=== PATIENT | female | born 1955 | race Caucasian/White ===

== ENCOUNTER → 2017-05-30 12:10 | Outpatient (CLI) | payer MEDICARE, MEDICAID, SELFPAY ==
--- NOTE | 2017-05-30 12:23 | RAD_ITS ---
STUDY: X-RAY - LEFT HAND, ATTENTION 4 FINGER REASON FOR EXAM: Female, 61 years old. Severe pain without injury. TECHNIQUE: view(s) of the finger were obtained. COMPARISON: None. FINDINGS: Normal metacarpal head. Normal metacarpophalangeal joint. Normal proximal phalanx. Normal middle phalanx. Normal distal phalanx. Normal proximal interphalangeal joint. Normal distal interphalangeal joint. There is minimal soft tissue swelling about the base of the finger although this is thought to be secondary to move all programming as there is an indentation along the base of the finger. RAD/Finger(s) Min 2 Views IMPRESSION: Normal x-ray examination of the finger. Electronically Signed: Michael Mckinnon DO at 18:08 EDT Tel [phone], Service support ,
== END ==
PROVIDERS: Visit Provider Family Medicine
DX: M79.645 Pain in left finger(s) (principal)
CPT/HCPCS: 73140

== ENCOUNTER → 2018-07-25 | Outpatient (CLI) | payer MEDICARE, MEDICAID, SELFPAY ==
[2018-07-25] MEDS: Cosyntropin 0.25 MG Vial IV (08:00)
[2018-07-25 08:38] VITALS: BP 112/64; PULSE 91; RESP 18; TEMP 36.7; O2SAT 96; BMI 21.7
[2018-07-25 09:39] LABS: CORTISOL SERUM < 0.50 ug/dL (3.09-22.40)
== END | disposition home or self-care (01) ==
LOC: MEDOUTP 08:28
PROVIDERS: Family Provider Family Medicine; PCP Family Medicine; Referring Provider Internal Medicine Hematology & Oncology; Visit Provider Internal Medicine Hematology & Oncology
DX: C34.12 Malignant neoplasm of upper lobe, left bronchus or lung (principal)
CPT/HCPCS: 96374; 82533; A4216; J0834

== ENCOUNTER 2020-02-10 14:44 | Inpatient (IN) | payer MEDICARE, MEDICAID, SELFPAY ==
[2018-07-25 08:38] VITALS: BMI 21.7
[2020-02-10] VITALS (32 sets, daily range): BP systolic 57–151; BP diastolic 27–101; PULSE 73–165; RESP 12–31; TEMP 36.6–37; O2SAT 98–100; BMI 29.5; BMI 21.9
--- NOTE | 2020-02-10 14:44 | RAD_ITS ---
STUDY: X-RAY CHEST REASON FOR EXAM: Female, 64 years old. et tube placement, ng tube placement TECHNIQUE: Frontal view of the chest COMPARISON: 15 October 2016 FINDINGS: Endotracheal tube terminates with its tip 4 cm from the alina. Gastric tube courses off the edge of the film into the body of the stomach. There are sternotomy wires. The lungs are clear and expanded. There is no demonstrated pleural abnormality. Normal size heart. There are metallic stents in the RCA and LAD territories Normal mediastinum and mary. Normal visualized pulmonary arteries. Normal visualized aortic arch and descending thoracic aorta. Normal visualized thoracic spine. Normal visualized ribs, clavicles, and shoulders. There is no demonstrated abnormality of the visualized soft tissue structures of the upper abdomen. RAD/Chest 1 View (Portable) IMPRESSION: 1. Expected appearance of endotracheal and gastric tubes. 2. No acute cardiorespiratory disease. 3. Coronary bypass grafting. Electronically Signed: Ronny Hanson, at 16:18 EST Tel , Service support ,
--- NOTE | 2020-02-10 14:44 | EKG12_ITS ---
Test Reason : AM EKG Blood Pressure : / mmHG Vent. Rate : 086 BPM Atrial Rate : 086 BPM P-R Int : 146 ms QRS Dur : 076 ms QT Int : 406 ms P-R-T Axes : 090 067 110 degrees QTc Int : 485 ms Normal sinus rhythm Nonspecific T wave abnormality Prolonged QT Abnormal ECG When compared with ECG of 10-FEB-2020 18:30, MANUAL COMPARISON REQUIRED, DATA IS UNCONFIRMED Confirmed by MICAH BUSTILLOS, SANDRA ([id number]), index editor KENROY HICKS ([id number]) on 02/18/2020 9:40:29 AM Referred By: Jonnie Montalvo Confirmed By:MADIE OBRIEN MD
--- NOTE | 2020-02-10 14:47 | ED.VIS.GEN ---
History of Present Illness Chief Complaint: CPR Informant: Significant Other Narrative: 64-year-old female presenting with unresponsiveness. Apparently per her significant other she had been having chest pain for 3 days prior to this. As they arrived at [facility] patient went unresponsive. Patient was unable to give any history. Her boyfriend then at this point went home to get his phone. Past Medical History - Allergies and Home Meds Allergies/Adverse Reactions: Allergies atorvastatin Adverse Reaction (Severe, Verified 07/25/18 09:16) Myalgias hydrocodone Adverse Reaction (Verified 07/25/18 09:16) Itching hydrocodone bitartrate [From Vicodin] Adverse Reaction (Verified 07/25/18 09:16) Itching oxycodone HCl [From Percocet] Adverse Reaction (Verified 07/25/18 09:16) Itching Prior records reviewed: Yes Past Medical History: - - CAD, three-vessel CABG, peripheral vascular disease, hyperlipidemia, hypertension, [place] Surgical History: angioplasty, appendectomy, - - BLTL Lives: Spouse/ Significant Other Smoking Status: Unknown if ever smoked Drugs: - - Unable to obtain drug and alcohol history. - Family History Maternal Family History: Family History (Last Updated 07/01/17 @ 12:08 by Lisa Ferreira) Mother Heart disease Hypertension Family History: Reports: Heart Disease Paternal Family History: Family History (Last Updated 07/01/17 @ 12:08 by Lisa Ferreira) Mother Heart disease Hypertension Family History: Reports: No pertinent history Review of Systems ROS: Unable to Obtain Physical Exam Vital Signs/Narrative: Vital Signs Temp Pulse Resp BP Pulse Ox 02/10/20 14:44 98.0 F 163 H 20 H 142/101 H 99 General: Obese, Acute Distress Head: Normocephalic, Atraumatic Eyes: Perrl, EOMI ENT: Moist mucous membranes, No rhinorrhea Cardiovascular: Regular rhythm, Tachycardia Respiratory: No distress, CTA bilaterally Abdomen: Soft, Nontender, Nondistended Back: Nontender, Normal Inspection Extremities: Nontender, No edema Skin: Pallor. Negative for: No rash, Cyanosis Psychological: Tearful, Agitated Diagnostic/Tx/Re-eval Laboratory Data 02/10/20 02/10/20 14:45 15:09 WBC 17.2 H RBC 5.24 Hgb 16.1 H Hct 50.4 H MCV 96.2 MCH 30.7 MCHC 31.9 L RDW Std Deviation 46.8 H RDW Coeff of Nehemiah 13.1 Plt Count 260 MPV 9.7 Immature Gran % (Auto) 0.800 Neut % (Auto) 39.6 L Lymph % (Auto) 51.1 H [place] % (Auto) 5.7 Eos % (Auto) 2.2 Baso % (Auto) 0.6 Absolute Neuts (auto) 6.8 Absolute Lymphs (auto) 8.78 H Nucleated RBC % 0 Differential Comment SCANNED APTT 26.3 - Rhythm Strip Rhythm Strip: Sinus Rhythm Rate: 174 - EKG Initial EKG Interpretation: Atrial Fibrillation, S-T Elevation - Leads II, 3, aVF, S-T Depression - Leads V1 through V5, - - STEMI Follow-up EKG Interpretation: Sinus Tachycardia, S-T Elevation - Leads I, 3, aVF, leads V1 through V5, - - STEMI - Medical Decision Making Patient presents unresponsive with history of 3 days of chest pain. ACLS was started. On the monitor patient appeared to be in torsades with alternating V. fib. Patient was given 2 g of mag during CPR. At rhythm check patient had a sinus tachycardia which slowly thierno to a rate of 174 bpm. EKG was performed and interpreted by myself which showed a STEMI which appears to be inferior and possibly atrial fibrillation.. A STEMI was called. I spoke with interventional cardiology who recommended heparin, Brilinta, aspirin. Cardiology recommended to cardiovert the patient and check another EKG while he was in route to the hospital. On arrival back to the room the patient's heart rate is now 107 and appears to be in normal sinus rhythm. Repeat EKG does show similar ST elevation and depression consistent with inferior ME as interpreted by myself. Medications were given as instructed. Patient did not require cardioversion. Thus far patient's lab work show a leukocytosis. Renal function and troponin are pending. Patient is sedated on a propofol drip. Patient transported to [facility] in stabilized condition. Impression: 1. Cardiopulmonary arrest 2. STEMI ED Disposition - Plan for ED Patient:
[2020-02-10 14:52] LABS: Absolute Lymphocyte Count 8.78 X10^3/uL (0.83-4.51); Absolute Neutrophil Count 6.8 X10^3/uL (2.0-7.7); Basophil# 0.11 X10^3/uL; Basophil% 0.6 % (0-1); Eosinophil# 0.37 X10^3/uL; Eosinophils% 2.2 % (0-5); Hematocrit 50.4 % (37-47); Hemoglobin 16.1 g/dL (12.0-15.0); Lymphocyte # 8.78 X10^3/ul (4.0); Lymphocyte % 51.1 % (19-41); Mean Corp Hgb Conc 31.9 g/dL (32-36); Mean Corpuscular Hgb 30.7 pg (27.0-32.0); Mean Corpuscular Volume 96.2 fL (81-99); Mean Platelet Vol. 9.7 fl (6.2-12.0); Monocyte# 0.98 X10^3/uL; Monocyte% 5.7 % (0-10); NRBC Flagged by Analyzer 0 % (0-5); Neutrophil # 6.79 X10^3/uL (2.7-7.7); Neutrophil % 39.6 % (47-70); POSITIVE DIFFERENTIAL YES; Platelet Count 260 K/mm3 (150-450); RBC Distribution Width CV 13.1 % (11.6-14.6); RBC Distribution Width SD 46.8 fl (35.1-43.9); Red Blood Count 5.24 M/mm3 (4.2-5.4); White Blood Count 17.2 K/mm3 (4.4-11.0)
[2020-02-10 14:54] LABS: Differential Indicated SCAN CRITERIA MET
[2020-02-10] MEDS: TICAGRELOR 90 MG TABLET 180 MG PO (15:05)
[2020-02-10] MEDS: Aspirin 81 MG TAB.CHEW 324 MG PO (15:05)
[2020-02-10] MEDS: Heparin Injection (Vial) 5,000 UNIT/ML VIAL 6000 UNIT IV (15:05)
--- NOTE | 2020-02-10 15:10 | HP.PCM_ITS ---
Problem List (1) STEMI (ST elevation myocardial infarction) Status: Acute Qualifiers: Involved coronary artery: unspecified coronary artery Qualified Code(s): I21.3 - ST elevation (STEMI) myocardial infarction of unspecified site (2) Cardiac arrest Status: Acute (3) Torsades de pointes Status: Acute (4) Ventricular tachycardia Status: Acute (5) Aortocoronary bypass status Status: Chronic Comment: CABG x 3- KENNY to LAD, SVG to OM, SVG to distal right 09/24/13 (6) Peripheral vascular insufficiency Status: Chronic (7) History of myocardial infarction Status: Chronic (8) Atherosclerotic heart disease of [place] coronary artery without angina pectoris Status: Chronic Qualifiers: [place] vs. transplanted heart: unspecified whether [place] or transplanted heart Qualified Code(s): I25.10 - Atherosclerotic heart disease of [place] coronary artery without angina pectoris Comment: CABG x 3- KENNY to LAD, SVG to OM, SVG to distal right 09/24/13; Stent assisted PTCA of prox LAD and cutting balloon 11/06/02; PTCA/Stent of the CX 09/18/13 (9) Hyperlipidemia Status: Chronic Qualifiers: Hyperlipidemia type: unspecified Qualified Code(s): E78.5 - Hyperlipidemia, unspecified (10) Hypertension Status: Chronic Qualifiers: Hypertension type: essential hypertension Qualified Code(s): I10 - Essential (primary) hypertension (11) Chronic obstructive pulmonary disease (COPD) Status: Chronic Qualifiers: COPD type: unspecified COPD Qualified Code(s): J44.9 - Chronic obstructive pulmonary disease, unspecified (12) Tobacco use Status: Chronic History of Present Illness Date of Admission: 02/10/20 Chief Complaint: Chest pain, unresponsive, cardiac arrest, STEMI The patient is a 64 y/o F w/ PMHx: Chronic COPD, HTN, HLD, CAD s/p CABG x 3 KENNY-LAD, SVG-OM, SVG distal right 2013, PCI, Hx GI bleed, PVD, Tobacco use, Anxiety who presents to the [facility] ED on 02/10/20 with history of ongoing chest discomfort intermittently over the last several months per discussion with patient's son with more severe chest discomfort over the last 3 days described as a midsternal chest pressure, severe enough that patient had used all of her own nitroglycerin and had been taking some from her son, 10 out of 10 with dyspnea which she attributed to reflux and thought secondary to her severe hiatal hernia but did not improve prompting eventual ED presentation however upon arrival patient became unresponsive in the vehicle and was pulled out per hospital staff. Upon arrival as noted patient was unresponsive with immediate evaluation notable for torsades with magnesium administered with transition to VT with shock administered with eventual transition to questionable atrial fibrillation with RVR versus sinus tachycardia however concern for significant elevations in leads II, III, aVF as well as depressions in V1 through V5 however patient eventually did slow and repeat EKG was obtained with rate 100 noted be sinus rhythm with confirmed concern for STEMI. Irrigation Flume Layer was contacted and events were relayed as well as EKGs. Irrigation Flume Layer requested aspirin, heparin alie cristal and drip as well as Brilinta load. In the emergency room following resuscitation patient was intubated and sedated noted to be extremely agitated following resuscitation. Work-up in the ED included T 98, heart rate upon evaluation 107, BP 142/101, respiratory rate 20, 99% on Ambu bag with eventual successful intubation, current labs resolved include CBC with WC 17.2, hemoglobin 16.1, platelet 260 with increased lymphocytes, pending PTT, pending BMP, pending magnesium, pending troponin, chest x-ray just obtained secondary to recent intubated status. Currently transitioning now to the cardiac catheterization lab. Past Medical History Past Medical History (Chronic Problems): Chronic Problems (Last Updated 07/01/17 @ 12:07 by Lisa Ferreira) Chronic obstructive pulmonary disease (COPD) (Chronic) Tobacco use (Chronic) Presence of stent in coronary artery (Chronic) Stent assisted PTCA of prox LAD and cutting balloon 11/06/02; PTCA/Stent of the CX 09/18/13 Aortocoronary bypass status (Chronic ~09/24/13) CABG x 3- KENNY to LAD, SVG to OM, SVG to distal right 09/24/13 Peripheral vascular insufficiency (Chronic) History of myocardial infarction (Chronic) Atherosclerotic heart disease of [place] coronary artery without angina pectoris (Chronic) CABG x 3- KENNY to LAD, SVG to OM, SVG to distal right 09/24/13; Stent assisted PTCA of prox LAD and cutting balloon 11/06/02; PTCA/Stent of the CX 09/18/13 S/P PTCA (percutaneous transluminal coronary angioplasty) (Chronic) Stent assisted PTCA of prox LAD and cutting balloon 11/06/02; PTCA/Stent of the CX 09/18/13 Hyperlipidemia (Chronic) Hypertension (Chronic) Squamous cell carcinoma of left lung (Chronic) Medical History: Medical History (Last Updated 07/01/17 @ 12:07 by Lisa Ferreira) Peripheral vascular insufficiency (Chronic) I73.9 History of myocardial infarction (Acute) I25.2 Atherosclerotic heart disease of [place] coronary artery without angina pectoris (Chronic) I25.10 CABG x 3- KENNY to LAD, SVG to OM, SVG to distal right 09/24/13; Stent assisted PTCA of prox LAD and cutting balloon 11/06/02; PTCA/Stent of the CX 09/18/13 Hyperlipidemia (Chronic) E78.5 Hypertension (Chronic) I10 Squamous cell carcinoma of left lung (Chronic) C34.92 History of GI bleed Z87.19 COPD (chronic obstructive pulmonary disease) J44.9 Tobacco abuse Z72.0 Hypotension (Inactive) I95.9 Left shoulder pain (Inactive) M25.512 Shock (Inactive) R57.9 Allergies atorvastatin Adverse Reaction (Severe, Verified 07/25/18 09:16) Myalgias hydrocodone Adverse Reaction (Verified 07/25/18 09:16) Itching hydrocodone bitartrate [From Vicodin] Adverse Reaction (Verified 07/25/18 09:16) Itching oxycodone HCl [From Percocet] Adverse Reaction (Verified 07/25/18 09:16) Itching Home Medications: Ambulatory Orders Medication Instructions Recorded Aspirin [Aspirin, Baby] 81 mg PO DAILY 02/17/13 Lorazepam [Ativan] 0.5 mg PO QHS 07/25/18 Surgical History: Surgical History (Last Updated 07/01/17 @ 12:07 by Lisa Ferreira) Presence of stent in coronary artery (Chronic) Z95.5 Stent assisted PTCA of prox LAD and cutting balloon 11/06/02; PTCA/Stent of the CX 09/18/13 Aortocoronary bypass status (Chronic) Onset Date: ~09/24/13 Z95.1 CABG x 3- KENNY to LAD, SVG to OM, SVG to distal right 09/24/13 S/P PTCA (percutaneous transluminal coronary angioplasty) (Chronic) Z98.61 Stent assisted PTCA of prox LAD and cutting balloon 11/06/02; PTCA/Stent of the CX 09/18/13 Surgical History: angioplasty - CABG x 3 and PCI., appendectomy, - - BLTL Psychiatric History: Anxiety BEHAVIORAL HEALTH CLINICIAN History: No pertinent BEHAVIORAL HEALTH CLINICIAN history Lives: Spouse/ Significant Other Smoking Status: Current some day smoker Tobacco Use: Cigarettes Alcohol: None Drugs: None - *Family History Maternal Family History: Family History (Last Updated 07/01/17 @ 12:08 by Lisa Ferreira) Mother Heart disease Hypertension History Items: Heart Disease Paternal Family History: Family History (Last Updated 07/01/17 @ 12:08 by Lisa Ferreira) Mother Heart disease Hypertension History Items: - - Patient with no market paternal family history including heart disease, diabetes, cancer. Offspring Family History: Family History (Last Updated 07/01/17 @ 12:08 by Lisa Ferreira) Mother Heart disease Hypertension History Items: Heart Disease - Patient with son with significant cardiac disease concurrently, CAD. Review of Systems Constitutional: Reports: Anorexia, Malaise, Weakness, Fatigue. Denies: Chills, Fever, Weight Change HEENT: Denies: Head Aches, Sinus Congestion, Sinus Drainage Cardiovascular: Reports: Chest Pain, Chest Pressure. Denies: Chest Tightness, Light Headedness, Orthopnea, Palpitations, Syncope Respiratory: Reports: Cough, Shortness of Breath, Shortness of breath upon exertion. Denies: Shortness of breath at rest, Sputum production Gastrointestinal: Reports: Dyspepsia. Denies: Abdominal Pain, Nausea, Vomiting Genitourinary: Denies: Dysuria Musculoskeletal: Reports: Joint Pain. Denies: Joint Tenderness Skin: Denies: Rash, Wounds Neurological: Denies: Numbness, Tingling, Focal weakness Psychiatric: Reports: Anxiety. Denies: Depression, Homicidal Ideations, Suicidal Ideations Hematologic/ Lymphatic: Denies: Easy Bruising, Easy Bleeding Unable to obtain accurate/complete ROS d/t: Unable to obtain direct ROS given sedated status, obtained per Son. VTE Information - Inpt Only VTE Present on Admission: No VTE Mechan Device Prophylaxis: SCD's VTE Pharm Prophylaxis ordered?: Yes Patient Problems: Active and Suspected Problems (Last Updated 07/01/17 @ 12:07 by Lisa Ferreira) STEMI (ST elevation myocardial infarction) (Acute) Cardiac arrest (Acute) Torsades de pointes (Acute) Ventricular tachycardia (Acute) Subjective: Laying in the ED bed, sedated, intubated currently, currently no acute distress, heart rate improved with rate 100, EKG being performed. Objective: Physical Examination: General: Patient currently sedated, not alert, not awake, unable to answer orientation questions, intubated and recently sedated as noted, laying in the ED bed, currently no acute distress. Skin: normal color, turgor, no icterus, cyanosis. HEENT: AT/NC, EOM unable to be assessed given intubated and sedated status, PERRLA, dry MM, no carotid bruits or JVD noted. Lungs: Diminished breath sounds bilaterally, greater bases, symmetric rise, intubated, no rales, ronchi or wheezing. Heart: Tachycardic with regular rhythm; no gallop, rub audible. Abdomen: soft, no elicited grimace with palpation of the abdomen, ND, normal BS, no HSM. Extremities: no cyanosis, clubbing, or edema. Neurological: Patient currently sedated, not alert, not awake, unable to answer orientation questions, intubated and recently sedated as noted, laying in the ED bed, currently no acute distress; cognitive function not baseline intact; pupils equally reactive to light and accomodation; cranial nerves unable to be assessed well given intubated and sedated status, not moving to withdrawal with stimuli, strength accordingly severely globally decreased. Psychiatric: affect appears flat, per discussion with ED physician once ROSC was achieved patient was severely agitated prior to intubation, no acute evidence of depressive or anxiety feelings. - Physical Exam Vitals/I&O's: Vital Signs Temp Pulse Resp BP Pulse Ox 98.0 F 163 H 20 H 142/101 H 99 02/10/20 14:44 02/10/20 14:44 02/10/20 14:44 02/10/20 14:44 02/10/20 14:44 Oxygen Delivery Method Ambu-Bag Weight: 182 lb 15.739 oz Body Mass Index (BMI) 29.5 Finger Stick Blood Glucose 61 Laboratory Results 02/10/20 14:45: WBC 17.2 H, RBC 5.24, Hgb 16.1 H, Hct 50.4 H, MCV 96.2, MCH 30.7, MCHC 31.9 L, RDW Std Deviation 46.8 H, RDW Coeff of Nehemiah 13.1, Plt Count 260, MPV 9.7, Immature Gran % (Auto) 0.800, Neut % (Auto) 39.6 L, Lymph % (Auto) 51.1 H, [place] % (Auto) 5.7, Eos % (Auto) 2.2, Baso % (Auto) 0.6, Absolute Neuts (auto) 6.8, Absolute Lymphs (auto) 8.78 H, Nucleated RBC % 0 02/10/20 14:45: Sodium Pending, Potassium Pending, Chloride Pending, Carbon Dioxide Pending, Anion Gap Pending, BUN Pending, Creatinine Pending, Est GFR (MDRD) Af Amer Pending, Est GFR (MDRD) Non-Af Pending, BUN/Creatinine Ratio Pending, Glucose Pending, Calcium Pending, Magnesium Pending, Troponin I Pending Current Medications Heparin Sodium (Porcine) (Heparin Injection (Vial) 5,000 Unit/Ml Vial) 0 unit IV UD PRN; Protocol PRN Reason: dose adjustment Heparin Sodium/Dextrose () 25,000 units in 250 mls @ 12 mls/hr IV .[id number] ANTONIO; Protocol Sodium Chloride () 500 mls @ 999 mls/hr IV .Q31M [facility] Stop: 02/10/20 15:30 Assessment/Plan All Active Problems (Last Updated 07/01/17 @ 12:07 by Lisa Ferreira) STEMI (ST elevation myocardial infarction) (Acute) Cardiac arrest (Acute) Torsades de pointes (Acute) Ventricular tachycardia (Acute) The patient is a 64 y/o F w/ PMHx: Chronic COPD, HTN, HLD, CAD s/p CABG x 3 KENNY-LAD, SVG-OM, SVG distal right 2014, PCI, Hx GI bleed, PVD, Tobacco use, Anxiety who presents to the [facility] ED on 02/10/20 with history of ongoing chest discomfort intermittently over the last several months per discussion with patient's son with more severe chest discomfort over the last 3 days described as a midsternal chest pressure, severe enough that patient had used all of her own nitroglycerin and had been taking some from her son, 10 out of 10 with dyspnea which she attributed to reflux and thought secondary to her severe hiatal hernia but did not improve prompting eventual ED presentation. 1. Chest Pain with eventual cardiac arrest with evident Inferior STEMI, complicated by torsades and ventricular tachycardia: As noted EKG with significant elevations lead II, III, aVF with depressions in V1 through V5, confirmed upon repeat EKG once patient rate improved. Patient received heparin bolus, drip, Brilinta load and aspirin therapy in the ED following ROSC, currently transitioning to cardiac catheterization lab but following intervention if appropriate will transition to the ICU, maintain intubated and sedated status, will continue aspirin, Brilinta versus Plavix per crushing machine operator discretion, statin allergies listed as severe myalgias therefore will only add atorvastatin 10 mg dose but may require QOD dosing or d/c pending tolerance, expect beta-nakul therapy as well as consideration ANGIE inhibitor/ARB but will defer to cardiology decision, request echocardiogram, continue to cycle cardiac enzymes, magnesium already obtained and noted to be normal, trend EKG, continue cardiology as well as supervisor paint department consultation. FLP in AM. Covid PCR testing pending, obtained in the ED prior to transition to cardiac catheterization lab. 2. Chronic COPD: Intubated and sedated as noted given acute presentation, ABG requested per AG and pending, will continue ATC duonebs, PRN albuterol, HOB, IS parameters. 3. CAD: s/p PCI and CABG x 3, pending cardiac catheterization as noted #1 given STEMI presentation with cardiac arrest, continue asa, brillinta load as noted with planned transition 90 mg BID in AM, adding low dose atorvastatin given myalgia history and may not tolerate with AM FLP, defer choice BB/ACEI/ARB to cardiology. 4. Hypertension: Patient per current regimen not on any beta-nakul or ANGIE inhibitor/ARB, as noted above will defer to cardiology, as needed IV hydrala zine. 5. Hyperlipidemia: Patient with severe myalgias with statin therapy noted on allergy list, will attempt atorvastatin 10 mg only with FLP in a.m., may not be able to further tolerate however will retry given acute presentation with STEMI. 6. History of GI bleed: Given acute presentation as noted patient initiated on Brilinta with load and planned transition to 90 mg twice daily likely as well as continued aspirin therapy, currently heparin drip in place with bolus, will place on PPI given history. 7. Anxiety: Holding patient Ativan given sedation as noted currently. 8. Tobacco Abuse: Encouraged cessation, inpatient consultation per RT, NR if desired. 9. DVT prophylaxis: SCDs, heparin drip as noted currently given planned catheterization needs, may consider Lovenox in AM. 10. CODE status: Patient WILFREDO is her son who was contacted and discussed presentation. Discussed current critical status and patient following discussions, requested Full Code status, amenable to current intubated status and planned cardiac catheterization. Advanced Care Planning Face to Face Time: 16 minutes. Inpatient E&M: 35304 Init Hosp L3 Procedures: 56541 Advncd Care Plan 30 Min
[2020-02-10 15:14] LABS: Differential Comment SCANNED
[2020-02-10 15:21] LABS: Blood Gas Specimen Type VEN; VBG BASE EXCESS -4 mmol/L (-1.0-3.5); VBG Bicarbonate 22 mmol/L (22-26); VBG PO2 146 mmHg (25-40); VBG SO2 99 % (50-70); VBG TCO2 24 mmol/L (23-33); VBG pCO2 45.8 mmHg (41-51)
[2020-02-10 15:25] LABS: Partial Thromboplast Time 26.3 Seconds (24.1-36.2)
--- NOTE | 2020-02-10 15:36 | EKG12_ITS ---
Test Reason : CPR Blood Pressure : / mmHG Vent. Rate : 174 BPM Atrial Rate : 087 BPM P-R Int : 000 ms QRS Dur : 086 ms QT Int : 280 ms P-R-T Axes : 000 082 076 degrees QTc Int : 476 ms Atrial fibrillation with rapid ventricular response ST elevation consider inferior injury or acute infarct ACUTE NM / STEMI Consider right ventricular involvement in acute inferior infarct Abnormal ECG Confirmed by MICAH BUSTILLOS, SANDRA ([id number]), newspaper or periodical editor KENROY HICKS ([id number]) on 02/14/2020 10:16:40 AM Referred By: Jonnie Montalvo Confirmed By:MADIE OBRIEN MD
[2020-02-10 15:41] LABS: Anion Gap 12 (5-15); BUN 14 mg/dL (7-18); BUN/Creat Ratio 13.3 RATIO (10-20); Calcium,Total 8.7 mg/dL (8.5-10.1); Chloride 108 mmol/L (98-107); Creatinine, Serum 1.05 mg/dL (0.55-1.02); EST Glomerular Filtration Rate 56 mL/min (>60); Est Glom Filt Rate - Afr Amer 68 mL/min (>60); Glucose 176 mg/dL (74-106); Magnesium 3.6 mg/dL (1.6-2.6); Potassium 3.9 mmol/L (3.5-5.1); Sodium Level 140 mmol/L (136-145)
--- NOTE | 2020-02-10 17:50 | PCM.OP.PRO ---
Problem List (1) NSTEMI (non-ST elevated myocardial infarction) Status: Acute (2) Cardiogenic shock Status: Acute Procedure Report Date of Procedure: 02/10/20 Prescription Clerk Lenses: Jonnie Montalvo DO History: This is a 64 years old female with history of coronary disease with CABG in 2013 NH: KENNY to the LAD, SVG to the OM, SVG to the RCA presented inpatient due to V. tach cardiac arrest. The patient has an EKG done which was concerning for cardiac ischemia. We have explained to the patient risks and benefits of cardiac catheterization plus any other necessary procedures with a view towards revascularization, if necessary. Risks, including but not limited to anesthesia, infection, organ(s) damage, bleeding, vessel injury, arrhythmia, stroke, NH and , including the need for urgent surgery were discussed in detail. The patient accepts these risks and verbalized understanding and is willing to proceed with the procedure. Viable alternatives if applicable have thoroughly been discussed and the patient agrees with the planned procedure(s). We also discussed with the patient regarding different treatment modalities including but not limited to drug-eluting stent/balloons. The patient was agreeable to any therapy that is considered necessary by my clinical judgment. Pre-op Diagnosis: + V. tach cardiac arrest + Abnormal ECG Post-op Diagnosis: + Cardiogenic shock status post intra-aortic balloon pump insertion + Acute closure of the SVG to the OM successful revascularization -Aspiration thrombectomy -Synergy 3.0x18mm stent to the SVG to the OM graft +NSTEMI type 1 + Atretic KENNY to the LAD + Patent SVG to the RCA + Acute occlusion of the SVG to the OM status post successful revascularization Procedures performed: Left Heart Catheterization + Cardiogenic shock status post intra-aortic balloon pump insertion + Acute closure of the SVG to the OM successful revascularization -Aspiration thrombectomy -Synergy 3.0x18mm stent to the SVG to the OM graft insertion of spider filter device Right & Left Selective Coronary Angiography Left Ventriculogram Moderate Sedation Bilateral femoral access with Ultrasound guidance Implants: -see above Estimated Blood Loss (EBL): minimal Specimen Removed: None Supplies: please see list Procedure details: After informed consent was obtained, the patient was brought to the Cardiac Catheterization Lab in a fasting state. All appropriate labs had been reviewed. Femoral and radial regions were prepped and draped in the usual sterile fashion. A time-out procedure was performed with appropriate identification of the patient, procedure, physician, position, and documentation. There were no safety issues raised by the staff. The bilateral femoral area was anesthetized with lidocaine and a 8 and 6-[place] vascular sheath was placed via a modified Seldinger technique using Ultrasound guidance. -We encountered difficulty access of the left femoral artery due to heavy calcification that was recorded on ultrasound. We were able to cross the femoral stenosis lesion with a Glidewire. We then advanced our 6 [place] sheath as usual. -Left system coronary angiography performed using a JL4 catheter. -Right and SVG system coronary angiography performed using a JR4 catheter. -KENNY to the LAD coronary angiography performed using a VICTOR M catheter. -Left heart catheterization and left ventriculography were performed using a pigtail catheter. The interventional procedure was performed as outlined below. After angiographic data was obtained, it was determined the patient will need further intervention to the SVG to the OM. The patient blood pressure was tenuous. And giving the recent V. tach. The patient is progressing into cardiogenic shock. For this reason, we elected to place the intra-aortic balloon pump before our intervention. The right femoral access site was an upgrade to an 8 [place]. We then advanced the intra-aortic balloon pump into the abdominal aorta. It was verified to be in the correct position. The balloon pump was then run one-to-one. The patient hemodynamic status stabilized. The SVG graft was heavily thrombotic with LUANNE I flow we advanced a spider filter into the SVG graft to the OM. It was placed distal to the stenosis. Next we also give nicardipine 200 mg. We then used a aspiration thrombectomy device. 2 rounds aspiration were done. There were thrombi aspirated. Next we advanced a 3.0 mm Synergy stent into the SVG graft. The stent was placed at the stenotic segment and deployed. We then retrieved the spider filter device. Angiographic data was done afterward which showed LUANNE-3 flow with 0% residual stenosis. The patient tolerated procedure well and there was no complication. The ACT was checked throughout the procedure and was verified in therapeutic range. Following the procedure, all wires & catheters were removed. The arteriotomy site was StatLock there was no apparent complication Contrast: See intra-procedure logs. Fluoroscopy: See intra-procedure logs. Anesthesia/medications: See intra-procedure log for details. Under my supervision, Versed and Fentanyl were administered intravenously for moderate sedation. Pulse oximetry, heart rate, and blood pressure were continuously monitored by a lab head registered nurse and myself. The history and physical exam were reviewed prior to the procedure and the airway was assessed. Coronary Findings: +Left Main: Patent vessel without any significant focal disease giving rise to LCx and LAD. +Left Anterior Descending: Occluded proximally; in-stent occlusion; Gives rise to diagonal and septal branches D1: In-stent occlusion +Left Circumflex: Occluded proximally, in-stent +Right Coronary Artery: Occluded proximally, in-stent; dominant vessel giving rise to postero-lateral and posterior descending arteries which are filled by SVG graft KENNY to the LAD -atretic SVG to the OM -acutely occluded, LUANNE I flow SVG to the RCA -widely patent, mid 20% stenosis POST INTERVENTION: SVG to the OM -LUANNE-3 flow with 0% residual stenosis. It supplies the OM which also gives collaterals to the LAD Left Ventriculography: Left ventriculography was performed in 30 degree FERREIRA position. The ejection fraction was estimated at 35% with inferior wall hypokinesis. There was no significant mitral regurgitation. Hemodynamics: -Opening aortic pressure was 110/55. -Left ventricular pressure was 110, left ventricular end-diastolic pressure was 10 mmHg. -Aortic pullback pressure was 110/55. -There was no significant gradient on pullback from the left ventricle into the ascending aorta. Conclusions: + Cardiogenic shock status post intra-aortic balloon pump insertion + Acute closure of the SVG to the OM successful revascularization -Aspiration thrombectomy -Synergy 3.0x18mm stent to the SVG to the OM graft +NSTEMI type 1 + Atretic KENNY to the LAD + Patent SVG to the RCA + Acute occlusion of the SVG to the OM status post successful revascularization Plan: + Aspirin and Brilinta for at least 1 year Continue intraductal balloon pump one-to-one. We will see how the patient does tomorrow we may wean the patient off the balloon pump. We will continue to optimize her medical therapy as tolerated. +Ice Access sites twice daily for 15 minutes each time. +Aggressive Risk Factor Modification + Continue ICU care DO MARILOU Clark, FASYudith, FACC, FASNC Date: 02/10/2020 at 1809
--- NOTE | 2020-02-10 18:10 | CON.PCM_ITS ---
Problem List (1) NSTEMI (non-ST elevated myocardial infarction) Status: Acute (2) Cardiogenic shock Status: Acute (3) Torsades de pointes Status: Acute (4) Ventricular tachycardia Status: Acute (5) Aortocoronary bypass status Status: Chronic Comment: CABG x 3- KENNY to LAD, SVG to OM, SVG to distal right 09/24/13 (6) Hyperlipidemia Status: Chronic Qualifiers: Hyperlipidemia type: unspecified Qualified Code(s): E78.5 - Hyperlipidemia, unspecified (7) Hypertension Status: Chronic Qualifiers: Hypertension type: essential hypertension Qualified Code(s): I10 - Essential (primary) hypertension (8) Tobacco use Status: Chronic Reason for Consult Date of Consultation: 02/10/20 Reason for Consultation: Cardiac arrest History of Present Illness: The patient is a 64 year old F [] Past Medical History Allergies/Adverse Reactions: Allergies atorvastatin Adverse Reaction (Severe, Verified 07/25/18 09:16) Myalgias hydrocodone Adverse Reaction (Verified 07/25/18 09:16) Itching hydrocodone bitartrate [From Vicodin] Adverse Reaction (Verified 07/25/18 09:16) Itching oxycodone HCl [From Percocet] Adverse Reaction (Verified 07/25/18 09:16) Itching Home Medications: Ambulatory Orders Medication Instructions Recorded Aspirin [Aspirin, Baby] 81 mg PO DAILY 02/17/13 Lorazepam [Ativan] 0.5 mg PO QHS 07/25/18 Past Medical History (Chronic Problems): Chronic Problems (Last Updated 07/01/17 @ 12:07 by Lisa Ferreira) Chronic obstructive pulmonary disease (COPD) (Chronic) Tobacco use (Chronic) Presence of stent in coronary artery (Chronic) Stent assisted PTCA of prox LAD and cutting balloon 11/06/02; PTCA/Stent of the CX 09/18/13 Aortocoronary bypass status (Chronic ~09/24/13) CABG x 3- KENNY to LAD, SVG to OM, SVG to distal right 09/24/13 Peripheral vascular insufficiency (Chronic) History of myocardial infarction (Chronic) Atherosclerotic heart disease of [place] coronary artery without angina pectoris (Chronic) CABG x 3- KENNY to LAD, SVG to OM, SVG to distal right 09/24/13; Stent assisted PTCA of prox LAD and cutting balloon 11/06/02; PTCA/Stent of the CX 09/18/13 S/P PTCA (percutaneous transluminal coronary angioplasty) (Chronic) Stent assisted PTCA of prox LAD and cutting balloon 11/06/02; PTCA/Stent of the CX 09/18/13 Hyperlipidemia (Chronic) Hypertension (Chronic) Squamous cell carcinoma of left lung (Chronic) Surgical History: angioplasty - CABG x 3 and PCI., appendectomy, - - BLTL Psychiatric History: Anxiety 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 Maternal Family History: Family History (Last Updated 07/01/17 @ 12:08 by Lisa Ferreira) Mother Heart disease Hypertension History Items: Heart Disease Paternal Family History: Family History (Last Updated 07/01/17 @ 12:08 by Lisa Ferreira) Mother Heart disease Hypertension History Items: - - Patient with no market paternal family history including heart disease, diabetes, cancer. Lives: Spouse/ Significant Other Smoking Status: Unknown if ever smoked Tobacco Use: Cigarettes Alcohol: None Drugs: None Objective: Vital Signs Temp Pulse Resp BP Pulse Ox 98.0 F 80 16 125/50 H 98 02/10/20 16:45 02/10/20 16:45 02/10/20 16:45 02/10/20 16:45 02/10/20 16:45 Oxygen Delivery Method Room Air Weight: 182 lb 15.739 oz Body Mass Index (BMI) 29.5 Finger Stick Blood Glucose 61 14 point review system was done. Pertinent positives are mentioned in HPI. Physical Exam GENERAL: Intubated and sedated, critically ill-appearing VITAL SIGNS: please see collected data HEENT: Exam is benign. Normocephalic and atraumatic. Oral mucosa is pink and moist. NECK: Jugular venous pulsations are normal. Carotid upstrokes are palpable bilaterally. There is no audible bruit. LUNGS: Vent Sound CARDIAC: Tachycardic. S1 and S2 with JOS at apex, no rub, or gallop appreciated. The point of maximal impulse is normal. ABDOMEN: Obese, soft with active bowel sounds. No organomegaly. No audible bruit. Nontender To Palpation EXTREMITIES: Femoral pulses were plus 1-2 out of 4. No Lower extremities edema. Pulse +1/4 OMM: Patient was examined in supine position; there was no acute tissue changes other stated in Lymphs: No lymphadenopathy Neuro: Intubated and sedated 02/10/20 14:45: WBC 17.2 H, RBC 5.24, Hgb 16.1 H, Hct 50.4 H, MCV 96.2, MCH 30.7, MCHC 31.9 L, Plt Count 260, MPV 9.7, Immature Gran % (Auto) 0.800, Neut % (Auto) 39.6 L, Lymph % (Auto) 51.1 H, [place] % (Auto) 5.7, Eos % (Auto) 2.2, Baso % (Auto) 0.6, Absolute Neuts (auto) 6.8, Nucleated RBC % 0 02/10/20 14:45: Sodium 140, Potassium 3.9, Chloride 108 H, Carbon Dioxide 20.0 L , Anion Gap 12, BUN 14, Creatinine 1.05 H, Est GFR (MDRD) Af Amer 68, Est GFR (MDRD) Non-Af 56 L, BUN/Creatinine Ratio 13.3, Glucose 176 H, Calcium 8.7, Magnesium 3.6 H, Troponin I 0.739 H* 02/10/20 15:09: APTT 26.3 02/10/20 15:15: VBG pH 7.30 L, VBG pO2 146 H, VBG HCO3 22, VBG O2 Sat (Calc) 99 H, VBG Base Excess -4 L Rhythm: EKG: ECHO: Stress Test: Cardiac Cath: PCI: CT Surgery: Holter monitor: EPS: PPM: CXR: Chest CT Scan: Assessment/Plan Impression and recommendation + Cardiogenic shock status post intra-aortic balloon pump insertion -The patient hemodynamic status is improving. The patient LVEDP was only 10. We suspect that we can wean the patient off the balloon pump tomorrow. -We will continue to implement cardiac medication as indicated. + Acute closure of the SVG to the OM successful revascularization -Aspiration thrombectomy -Synergy 3.0x18mm stent to the SVG to the OM graft - Aspirin and Brilinta for at least 1 year - Continue intra-aortic balloon pump one-to-one. We will see how the patient does tomorrow we may wean the patient off the balloon pump. + Ischemic cardiomyopathy with depressed LVEF of 40% -The patient will need cardiac rehab. -We will continue to optimize other medical therapy as tolerated. + Severe coronary disease with history of CABG in 2013 -Atretic KENNY to the LAD -Patent SVG to the RCA -Acute occlusion of the SVG to the OM status post successful revascularization -The patient has severe residual [place] coronary disease. She will likely need intervention to the LAD in the near future. + Ventricular tachycardia cardiac arrest -See management above -Depending on how the patient does, she may need further evaluation by EP team. + Tobacco abuse We will continue to educate the patient on the importance of quitting her tobacco use. + Hyperlipidemia The patient has allergy to statin. We will see if we can rechallenge her.
[2020-02-10 18:20] LABS: ACT Activated Clotting Time 241 sec (74-137)
[2020-02-10 18:20] LABS: ACT Activated Clotting Time 224 sec (74-137)
[2020-02-10 18:20] LABS: ACT Activated Clotting Time 285 sec (74-137)
--- NOTE | 2020-02-10 18:30 | EKG12_ITS ---
Test Reason : STEMI Blood Pressure : / mmHG Vent. Rate : 081 BPM Atrial Rate : 081 BPM P-R Int : 142 ms QRS Dur : 078 ms QT Int : 430 ms P-R-T Axes : 065 069 175 degrees QTc Int : 499 ms Normal sinus rhythm T wave abnormality, consider inferolateral ischemia Prolonged QT Abnormal ECG When compared with ECG of 10-FEB-2020 14:56, MANUAL COMPARISON REQUIRED, DATA IS UNCONFIRMED Confirmed by MICAH BUSTILLOS, SANDRA ([id number]), story editor LOYD MCMAHON ([id number]) on 02/19/2020 4:13:20 PM Referred By: Jonnie Montalvo Confirmed By:MADIE OBRIEN MD
--- NOTE | 2020-02-10 18:35 | ECHOCS_ITS ---
Reason For Study: CHEST PAIN Procedure This was a 2D Doppler, Color Flow transthoracic echocardiogram. The study was technically difficult. Due to chest pain from CPR performed in ED 02/10/20, PT found unresponsive in car. Exam performed supine due to patient's chest pain. Contrast injection was performed. Exam performed portable in ICU/CCU. Left Ventricle Normal LV size. The estimated ejection fraction is 40 %. Stage 1 diastolic dysfunction. Severe hypokinesis of the inferior wall and lateral wall. Right Ventricle Normal RV size. Normal systolic function. Atria Normal left atrium. Normal right atrium. No doppler evidence for ASD. Mitral Valve There is no mitral valve stenosis. No mitral valve insufficiency. Tricuspid Valve There is no tricuspid stenosis. Trivial tricuspid valve insufficiency. Unable to estimate RV systolic pressure due to insufficient tricuspid regurgitant envelope. Aortic Valve Mild diffuse aortic valve thickening. Trisinus/trileaflet aortic valve. There is no aortic stenosis. No aortic valve insufficiency. Pulmonic Valve There is no pulmonic valvular stenosis. No pulmonic valve insufficiency. Great Vessels Normal aortic root. Pericardium/Pleural No pericardial effusion. Medication Diluted definity 2.0ml given slow IV push to enhance endocardial definition. MMode/2D Measurements & Calculations LVIDd: 4.4 cm IVSd: 0.88 cm Ao root diam: 3.3 cm LVIDs: 3.4 cm LVPWd: 0.94 cm FS: 22.8 % LAV(MOD-bp): 34.3 ml LA A4 area: 13.4 cm2 LA dimension(2D): 2.9 cm LAV(MOD-bp) Indexed: 20.1 ml/m2 LAV(MOD-sp2): 34.7 ml LAV(MOD-sp4): 32.9 ml Time Measurements MV dec time: 0.16 sec Doppler Measurements & Calculations MV E max joe: 96.9 cm/sec Lat Peak E' Joe: 9.0 cm/sec Med Peak E' Joe: 8.8 cm/sec MV A max joe: 69.7 cm/sec E/E' lat: 10.8 E/E' med: 11.0 MV E/A: 1.4 Ao V2 max: 141.4 cm/sec LV V1 max: 90.3 cm/sec Ao max P.0 mmHg LV V1 max P.3 mmHg Interpretation Summary The estimated ejection fraction is 40 %. Stage 1 diastolic dysfunction. Severe hypokinesis of the inferior wall and lateral wall. The study was technically difficult. Contrast injection was performed. Ordering Physician: Winsome Morataya Referring Physician: Harvey Chow Performed By: Lexie Riggins, ANNA, RVT
[2020-02-10 19:01] LABS: Prothrombin Time (Protime)PT. 12.5 SECONDS (11.7-14.9)
[2020-02-10] MEDS: Propofol 10MG/Ml 1,000 MG/100 ML Bottle 24.9 MG CONT INF (19:16)
[2020-02-10] MEDS: 0.9% Normal Saline 1,000 ML 75 ML IV (19:45)
--- NOTE | 2020-02-10 19:50 | RAD_ITS ---
STUDY: X-RAY CHEST REASON FOR EXAM: Female, 64 years old. IABP TECHNIQUE: AP COMPARISON: Earlier today FINDINGS: Endotracheal tube and enteric/gastric tube are stable. Intra-aortic balloon pump identified with echogenic tip projecting over the aortic arch. The lungs are clear and expanded. There is no demonstrated pleural abnormality. Normal size heart. Coronary artery stents noted. Normal mediastinum and mary. Normal visualized pulmonary arteries. Normal visualized aortic arch and descending thoracic aorta. Normal visualized thoracic spine. Normal visualized ribs, clavicles, and shoulders. There is no demonstrated abnormality of the visualized soft tissue structures of the upper abdomen. RAD/Chest 1 View (Portable) IMPRESSION: IABP with tip projecting over the aortic arch. Otherwise stable. Electronically Signed: Brandon Hernandez MD (Brooks) at 20:13 EST , Service support ,
--- NOTE | 2020-02-10 19:53 | RAD_ITS ---
STUDY: X-RAY - ABDOMEN/PELVIS REASON FOR EXAM: Female, 64 years old. IABP TECHNIQUE: AP COMPARISON: Chest x-ray from the same time FINDINGS: Enteric/gastric tube terminates in the stomach. Right groin IABP is seen. FLOWERS catheter is present. Excreted contrast in the urinary tract/kidneys/bladder. There is an unremarkable bowel gas pattern. There is no demonstrated free abdominal air. The visualized liver, spleen and kidneys are grossly normal in size and morphology. There are vascular calcifications. There are fallopian tube clips. Normal visualized osseous structures. RAD/Abdomen Single View (Portable) IMPRESSION: Right groin IABP. Enteric/gastric tube. Electronically Signed: Brandon Hernandez MD (Brooks) at 20:46 EST , Service support ,
--- NOTE | 2020-02-10 20:08 | NURSING ---
1939- Balloon pump alarming with helium flow issues. Trouble shooting was completed, checked all connections. Helium tank full. Called Dr Montalvo who stated he would be in to assess pt. Aware pump is not pumping at this time. 1944- Dr Montalvo to unit. Adv nursing to turn pump off and then turn it back on. Remains at bedside. Pump now working. MD had us change it to 1:4. Reports no Heparin GTT needed.
[2020-02-10 20:11] LABS: Base Excess -1 mmol/L (-2 to +2); Bicarbonate 23.8 mmol/L (22-26); Blood Gas Specimen Type ART; FI02 60; Mode AC; O2 Delivery Device Adult Vent; PEEP 5; PO2 130 mmHG (75-100); RR 14; SITE Art Line; SO2 99 % (95-99); Total Carbon Dioxide 25 mmol/L; Vt 450; pCO2 38.4 mmHg (35-45)
[2020-02-10] MEDS: 0.9% Normal Saline 1,000 ML 999 ML IV (20:20)
[2020-02-10 20:25] LABS: Hematocrit 38.2 % (37-47); Hemoglobin 12.3 g/dL (12.0-15.0)
[2020-02-10 20:26] LABS: Bedside Glucose 102 mg/dL (70-110)
[2020-02-10 20:30] LABS: ACT Activated Clotting Time 158 sec (74-137)
--- NOTE | 2020-02-10 20:30 | NURSING ---
Spoke with son Eduardo on phone. Update given.
[2020-02-10] MEDS: Dextrose 50%-Water 25 GM/50 ML DISP.SYRIN IV (20:47)
--- NOTE | 2020-02-10 20:50 | NURSING ---
Dr. Montalvo at bedside. Balloon pump currently in 1:4. Dr. Montalvo decided to DC balloon pump. 2054- Dr. Montalvo DC'd balloon pump. Manual pressure held by Dr. Montalvo. 2104- Dr. Montalvo asked RN to continue holding pressure to balloon pump site. This RN held manual pressure from 2104 to 2124. Right groin site soft. Pressure dressing applied. Pedal pulses are +1.
[2020-02-10 21:10] LABS: Hematocrit 39.4 % (37-47); Hemoglobin 12.3 g/dL (12.0-15.0)
--- NOTE | 2020-02-10 21:19 | PCM.OP.PRO ---
Problem List (1) NSTEMI (non-ST elevated myocardial infarction) Status: Acute (2) Cardiogenic shock Status: Acute (3) Torsades de pointes Status: Acute (4) Ventricular tachycardia Status: Acute (5) Aortocoronary bypass status Status: Chronic Comment: CABG x 3- KENNY to LAD, SVG to OM, SVG to distal right 09/24/13 (6) Hyperlipidemia Status: Chronic Qualifiers: Hyperlipidemia type: unspecified Qualified Code(s): E78.5 - Hyperlipidemia, unspecified (7) Hypertension Status: Chronic Qualifiers: Hypertension type: essential hypertension Qualified Code(s): I10 - Essential (primary) hypertension (8) Tobacco use Status: Chronic Procedure Report Date of Procedure: 02/10/20 Director Of Human Resources: Jonnie Finn Insertion of central line at the bedside Indication: Hemodynamic support The patient was prepped and draped in sterile fashion. Next we used ultrasound to assess for the left femoral vein. The femoral vein was identified. Next we used lidocaine to numb up the location of the femoral vein. Next we used an access needle to puncture the femoral vein. We then used the Seldinger technique to insert the triple-lumen femoral sheath into the vein. All ports were aspirated and verified to be in working condition. The patient tolerated procedure well and there was no complication. Blood loss 5 cc
[2020-02-10] MEDS: TITRATION PARAMETER CHANGE 1 EACH IV (21:21)
[2020-02-10] MEDS: Vancomycin IV 1,000 MG/200 ML BAG 200 MG IV (21:21)
--- NOTE | 2020-02-10 21:21 | PCM.OP.PRO ---
Problem List (1) NSTEMI (non-ST elevated myocardial infarction) Status: Acute (2) Cardiogenic shock Status: Acute (3) Torsades de pointes Status: Acute (4) Ventricular tachycardia Status: Acute (5) Aortocoronary bypass status Status: Chronic Comment: CABG x 3- KENNY to LAD, SVG to OM, SVG to distal right 09/24/13 (6) Hyperlipidemia Status: Chronic Qualifiers: Hyperlipidemia type: unspecified Qualified Code(s): E78.5 - Hyperlipidemia, unspecified (7) Hypertension Status: Chronic Qualifiers: Hypertension type: essential hypertension Qualified Code(s): I10 - Essential (primary) hypertension (8) Tobacco use Status: Chronic Procedure Report Date of Procedure: 02/10/20 Removal of intra-aortic balloon pump Indication: The balloon pump is not needed at this time I was called to the patient bedside regarding the balloon pump not working properly. After further assessment of the balloon pump as well as the patient hemodynamic needs. It was determined that the patient does not need balloon pump support at this time. Rather, it may complicate the course of treatment. Hence at this time we elected to remove the balloon pump. I also discussed this with our fleet manager at [facility], Dr. Karen Lynne. The patient was prepped and draped in sterile fashion. We then put the balloon pump on 1-4. Next we put the balloon pump on standby. Balloon pump was then pulled along with the femoral sheath. We were able to achieve hemostasis with manual pressure. The patient tolerated procedure well and there was no complication. Blood loss 2 cc Complication none
[2020-02-10] MEDS: Chlorhexidine 15 ML PO (22:14)
[2020-02-10] MEDS: Ipratropium/Albuterol Sulfate 3 ML AMPUL.NEB INHALATION (22:31)
[2020-02-10 22:49] LABS: Hemoglobin A1c 5.8 % (3.8-5.6)
[2020-02-10 22:53] LABS: CPK Total, Creatine Kinase 2841 U/L (26-192); Triglycerides 187 mg/dL
[2020-02-10] MEDS: Atorvastatin Calcium 10 MG Tablet PO (23:21)
[2020-02-11] VITALS (60 sets, daily range): BP systolic 79–135; BP diastolic 36–82; PULSE 76–108; RESP 14–28; TEMP 36.6–39.4; O2SAT 91–99
[2020-02-11] MEDS: 0.9% Normal Saline 1,000 ML 100 ML IV ×3 (00:13→20:19)
--- NOTE | 2020-02-11 00:36 | NURSING ---
Spoke with Ronal on phone. Update given.
[2020-02-11] MEDS: 0.9% Saline Lock 10 ML Syringe IV ×4 (01:27→10:04)
--- NOTE | 2020-02-11 01:52 | NURSING ---
Pt. woke up. Following simple commands. Explained what happened to pt. Oral care provided. Told pt. that her son and were updated; pt. nodded in understanding. Will monitor.
[2020-02-11 03:08] LABS: Bacteria 0 SEEN /hpf (None Seen); Mucous, Urine 0 SEEN /hpf (<or=2+); Squamous Epithelial Cells - UA 0 SEEN /hpf (5-10); White Blood Cells 0 SEEN /hpf (0-5)
[2020-02-11 03:09] LABS: Color, Urine Yellow (Yellow); Glucose, Dipstick Normal (Normal); Ketone-Dipstick Negative (Negative); Leukocyte Esterase-Dipstick Negative /ul (Negative); Nitrite-Dipstick Negative (Negative); Occult Blood-Urine 150 /ul (Negative); Protein-Dipstick 15 mg/dl (Negative); Urine Bilirubin Dipstick Negative (Negative); Urine Clarity Clear (Clear); Urine Urobilinogen Normal (Normal)
[2020-02-11 03:15] LABS: Red Blood Cells-Urine 10-25 SEEN /hpf (0-5)
[2020-02-11 03:35] LABS: Absolute Lymphocyte Count 4.84 X10^3/uL (0.83-4.51); Absolute Neutrophil Count 10.8 X10^3/uL (2.0-7.7); Basophil% 0.6 % (0-1); Eosinophil# 0.53 X10^3/uL; Hematocrit 37.2 % (37-47); Hemoglobin 11.9 g/dL (12.0-15.0); Lymphocyte # 4.84 X10^3/ul (4.0); Lymphocyte % 27.1 % (19-41); Mean Corpuscular Hgb 31.2 pg (27.0-32.0); Mean Corpuscular Volume 97.6 fL (81-99); Mean Platelet Vol. 9.8 fl (6.2-12.0); Monocyte# 1.51 X10^3/uL; Monocyte% 8.4 % (0-10); NRBC Flagged by Analyzer 0 % (0-5); Neutrophil # 10.77 X10^3/uL (2.7-7.7); Neutrophil % 60.2 % (47-70); POSITIVE DIFFERENTIAL YES; Platelet Count 262 K/mm3 (150-450); RBC Distribution Width CV 13.6 % (11.6-14.6); RBC Distribution Width SD 48.5 fl (35.1-43.9); Red Blood Count 3.81 M/mm3 (4.2-5.4); White Blood Count 17.9 K/mm3 (4.4-11.0)
[2020-02-11 03:36] LABS: Differential Indicated SCAN CRITERIA MET
[2020-02-11 03:54] LABS: ALB/GLOB Ratio 0.8 RATIO (0.9-2.4); AST(SGOT) 336 U/L (15-37); Alanine Aminotransfer ALT/SGPT 113 U/L (13-56); Albumin, Serum 2.4 g/dL (3.2-5.0); Alkaline Phosphatase 58 U/L (45-117); Anion Gap 6 (5-15); BUN 13 mg/dL (7-18); BUN/Creat Ratio 13.4 RATIO (10-20); Calcium,Total 6.8 mg/dL (8.5-10.1); Chloride 110 mmol/L (98-107); Cholesterol 151 mg/dL (200); Creatinine, Serum 0.97 mg/dL (0.55-1.02); EST Glomerular Filtration Rate 61 mL/min (>60); Est Glom Filt Rate - Afr Amer 74 mL/min (>60); Estimated Creatinine Clearance 54.13 ml/min; Glucose 124 mg/dL (74-106); High Density Lipoprotein 34 mg/dL; Protein, Total 5.4 g/dL (6.4-8.2); Sodium Level 142 mmol/L (136-145); Triglycerides 185 mg/dL; Very Low Density Lipoprotein 37 mg/dL (5-40)
[2020-02-11] MEDS: Acetaminophen 650 MG/20 ML UDC GT (04:13)
[2020-02-11] MEDS: TITRATION PARAMETER CHANGE 1 EACH IV (04:32)
--- NOTE | 2020-02-11 05:49 | PCM.CON.CC ---
Reason for Consult Date of Consultation: 02/11/20 Reason for Consultation: Acute respiratory failure History of Present Illness: The patient is a 64-year-old female, with a history as outlined below, who presented to the emergency department on February 09 in an unresponsive state after having sustained cardiac arrest. The patient had apparently been reporting 3 days of chest pain prior to presenting to the hospital. On arrival to the emergency department, ACLS was initiated. The patient does have a history of COPD and coronary artery disease status post CABG. On presentation to the emergency department, the patient was apparently in torsade/VT, which was treated with advanced cardiac life support and cardioversion. EKG revealed findings concerning for ischemia. Interventional cardiology was contacted and the cardiac [employer] was activated. Laboratory evaluation revealed an elevated white blood cell count to 17,000. Coagulation profile was within normal limits. Chemistry profile was notable for a creatinine of 1.05 with a bicarbonate of 20. Magnesium was elevated at 3.6. Troponin was initially elevated to 0.739. Coronavirus PCR was negative. Urine analysis was unremarkable. The patient was taken to the cardiac catheterization lab where she was noted to have a closure of her SVG to OM, for which she underwent successful aspiration thrombectomy and stent placement. Initially, post intervention, an intra-aortic balloon pump was placed. The patient also had a left femoral triple-lumen catheter inserted to facilitate vasoactive drug administration. Overnight, the patient's intra-aortic balloon pump was removed by cardiology after it was noted not to be working appropriately. The patient is currently sedated on Precedex and fentanyl. In addition, she has been maintained on Levophed at 15 mcg/min to maintain hemodynamic stability. Per nursing report, the patient has had fevers overnight. Cultures were obtained but no antibiotics were initiated last night. Past Medical History Past Medical History (Chronic Problems): Chronic Problems (Last Updated 07/01/17 @ 12:07 by Lisa Ferreira) Chronic obstructive pulmonary disease (COPD) (Chronic) Tobacco use (Chronic) Presence of stent in coronary artery (Chronic) Stent assisted PTCA of prox LAD and cutting balloon 11/06/02; PTCA/Stent of the CX 09/18/13 Aortocoronary bypass status (Chronic ~09/24/13) CABG x 3- KENNY to LAD, SVG to OM, SVG to distal right 09/24/13 Peripheral vascular insufficiency (Chronic) History of myocardial infarction (Chronic) Atherosclerotic heart disease of [place] coronary artery without angina pectoris (Chronic) CABG x 3- KENNY to LAD, SVG to OM, SVG to distal right 09/24/13; Stent assisted PTCA of prox LAD and cutting balloon 11/06/02; PTCA/Stent of the CX 09/18/13 S/P PTCA (percutaneous transluminal coronary angioplasty) (Chronic) Stent assisted PTCA of prox LAD and cutting balloon 11/06/02; PTCA/Stent of the CX 09/18/13 Hyperlipidemia (Chronic) Hypertension (Chronic) Squamous cell carcinoma of left lung (Chronic) Medical History: Medical History (Last Updated 07/01/17 @ 12:07 by Lisa Ferreira) Peripheral vascular insufficiency (Chronic) I73.9 History of myocardial infarction (Chronic) I25.2 Atherosclerotic heart disease of [place] coronary artery without angina pectoris (Chronic) I25.10 CABG x 3- KENNY to LAD, SVG to OM, SVG to distal right 09/24/13; Stent assisted PTCA of prox LAD and cutting balloon 11/06/02; PTCA/Stent of the CX 09/18/13 Hyperlipidemia (Chronic) E78.5 Hypertension (Chronic) I10 Squamous cell carcinoma of left lung (Chronic) C34.92 History of GI bleed Z87.19 COPD (chronic obstructive pulmonary disease) J44.9 Tobacco abuse Z72.0 Hypotension (Inactive) I95.9 Left shoulder pain (Inactive) M25.512 Shock (Inactive) R57.9 Allergies atorvastatin Adverse Reaction (Severe, Verified 07/25/18 09:16) Myalgias hydrocodone Adverse Reaction (Verified 07/25/18 09:16) Itching hydrocodone bitartrate [From Vicodin] Adverse Reaction (Verified 07/25/18 09:16) Itching oxycodone HCl [From Percocet] Adverse Reaction (Verified 07/25/18 09:16) Itching Home Medications: Ambulatory Orders Medication Instructions Recorded Aspirin [Aspirin, Baby] 81 mg PO DAILY 02/17/13 Lorazepam [Ativan] 0.5 mg PO QHS 07/25/18 Hydrocortisone [Cortef] 10 mg PO QHS 02/11/20 Hydrocortisone [Cortef] 20 mg PO DAILY 02/11/20 Surgical History: Surgical History (Last Updated 07/01/17 @ 12:07 by Lisa Ferreira) Presence of stent in coronary artery (Chronic) Z95.5 Stent assisted PTCA of prox LAD and cutting balloon 11/06/02; PTCA/Stent of the CX 09/18/13 Aortocoronary bypass status (Chronic) Onset Date: ~09/24/13 Z95.1 CABG x 3- KENNY to LAD, SVG to OM, SVG to distal right 09/24/13 S/P PTCA (percutaneous transluminal coronary angioplasty) (Chronic) Z98.61 Stent assisted PTCA of prox LAD and cutting balloon 11/06/02; PTCA/Stent of the CX 09/18/13 Surgical History: angioplasty - CABG x 3 and PCI., appendectomy, - - BLTL Psychiatric History: Anxiety [employer]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 Maternal Family History: Family History (Last Updated 07/01/17 @ 12:08 by Lisa Ferreira) Mother Heart disease Hypertension History Items: Heart Disease Paternal Family History: Family History (Last Updated 07/01/17 @ 12:08 by Lisa Ferreira) Mother Heart disease Hypertension History Items: - - Patient with no market paternal family history including heart disease, diabetes, cancer. Review of Systems Unable to obtain accurate/complete ROS d/t: Due to current intubation and mechanical ventilation status. Patient Problems: Active and Suspected Problems (Last Updated 07/01/17 @ 12:07 by Lisa Ferreira) STEMI (ST elevation myocardial infarction) (Acute) Cardiac arrest (Acute) Torsades de pointes (Acute) Ventricular tachycardia (Acute) NSTEMI (non-ST elevated myocardial infarction) (Acute) Cardiogenic shock (Acute) Objective: The patient's most recent lab work, culture data and imaging studies have all been personally reviewed. Coronavirus PCR was negative on February 09. Blood, urine and sputum cultures are pending. - Physical Exam Vitals/I&O's: Vital Signs Temp Pulse Resp BP Pulse Ox 103 F H 87 15 95/57 L 98 02/11/20 05:00 02/11/20 05:00 02/11/20 05:00 02/11/20 05:00 02/11/20 05:00 Oxygen Delivery Method Mechanical Ventilator Weight: 137 lb 2.04 oz Body Mass Index (BMI) 21.9 Finger Stick Blood Glucose 61 Intake and Output for Last 24 Hours 02/09/20 02/10/20 02/11/20 23:59 23:59 23:59 Intake Total 2363.13 / 2393.49 364.66 / 364.66 Output Total 325 / 325 150 / 150 Balance 2038.13 / 2068.49 214.66 / 214.66 General: - - Currently intubated, sedated and mechanically ventilated. No ventilator dyssynchrony on assist control mode of mechanical ventilation. HEENT: Atraumatic, PERRLA, Normocephalic Oral: No Gingival or Mucosal Lesions/ Ulcerations, - - Endotracheal and OG tubes in place Neck: Supple, No Nodes, Trachea Midline Lungs: No rhonchi, No wheeze, No rales, Diminished Cardiovascular: Regular rate, Regular Rhythm Abdomen: Bowel Sounds Present, Soft, Non Tender Extremities: No clubbing, No cyanosis, No edema Skin: No breakdown Musculoskeletal: No Tenderness to Palpation of Joints or Extremities Lymphatic: No Cervical, Supraclavicular, or Inguinal Adenopathy Neurological: - - No focal neurological deficits. Despite sedation, the patient is alert and able to follow simple commands. Labs (Last 48 Hours) 02/10/20 02/10/20 02/10/20 14:45 14:45 14:50 WBC 17.2 H RBC 5.24 Hgb 16.1 H Hct 50.4 H MCV 96.2 MCH 30.7 MCHC 31.9 L RDW Std Deviation 46.8 H RDW Coeff of Nehemiah 13.1 Plt Count 260 MPV 9.7 Immature Gran % (Auto) 0.800 Neut % (Auto) 39.6 L Lymph % (Auto) 51.1 H Kay % (Auto) 5.7 Eos % (Auto) 2.2 Baso % (Auto) 0.6 Absolute Neuts (auto) 6.8 Absolute Lymphs (auto) 8.78 H Nucleated RBC % 0 Differential Comment SCANNED Diff Path Review PT INR APTT Activated Clotting Time Specimen Type Sample Site pH Bicarbonate Actual Total CO2 Base Excess O2 Saturation O2 % ABG pCO2 ABG pO2 VBG pH VBG pO2 VBG HCO3 VBG Total CO2 VBG O2 Sat (Calc) VBG Base Excess POC Mix VBG pCO2 Pt Tmp Respiration Rate O2 Delivery Device Vent Mode Tidal Volume POC PEEP Sodium 140 Potassium 3.9 Chloride 108 H Carbon Dioxide 20.0 L Anion Gap 12 BUN 14 Creatinine 1.05 H Estim Creat Clear Calc 50.00 Est GFR (MDRD) Af Amer 68 Est GFR (MDRD) Non-Af 56 L BUN/Creatinine Ratio 13.3 Glucose 176 H Hemoglobin A1c Calcium 8.7 Magnesium 3.6 H Total Bilirubin AST ALT Alkaline Phosphatase Total Creatine Kinase Troponin I 0.739 H* Total Protein Albumin Globulin Albumin/Globulin Ratio Triglycerides Cholesterol LDL Cholesterol VLDL Cholesterol HDL Cholesterol Urine Color Urine Clarity Urine pH Ur Specific [place] Urine Protein Urine Glucose (UA) Urine Ketones Urine Occult Blood Urine Nitrite Urine Bilirubin Urine Urobilinogen Ur Leukocyte Esterase Urine RBC Urine WBC Ur Squamous Epith Cells Urine Bacteria Urine Mucus COVID-19 (BERENICE) Not Detected POC Glucose Blood Type Antibody Screen 02/10/20 02/10/20 02/10/20 15:09 15:09 15:09 WBC RBC Hgb Hct MCV MCH MCHC RDW Std Deviation RDW Coeff of Nehemiah Plt Count MPV Immature Gran % (Auto) Neut % (Auto) Lymph % (Auto) Kay % (Auto) Eos % (Auto) Baso % (Auto) Absolute Neuts (auto) Absolute Lymphs (auto) Nucleated RBC % Differential Comment Diff Path Review PT 12.5 INR 1.0 APTT 26.3 Activated Clotting Time Specimen Type Sample Site pH Bicarbonate Actual Total CO2 Base Excess O2 Saturation O2 % ABG pCO2 ABG pO2 VBG pH VBG pO2 VBG HCO3 VBG Total CO2 VBG O2 Sat (Calc) VBG Base Excess POC Mix VBG pCO2 Pt Tmp Respiration Rate O2 Delivery Device Vent Mode Tidal Volume POC PEEP Sodium Potassium Chloride Carbon Dioxide Anion Gap BUN Creatinine Estim Creat Clear Calc Est GFR (MDRD) Af Amer Est GFR (MDRD) Non-Af BUN/Creatinine Ratio Glucose Hemoglobin A1c 5.8 H Calcium Magnesium Total Bilirubin AST ALT Alkaline Phosphatase Total Creatine Kinase Troponin I Total Protein Albumin Globulin Albumin/Globulin Ratio Triglycerides Cholesterol LDL Cholesterol VLDL Cholesterol HDL Cholesterol Urine Color Urine Clarity Urine pH Ur Specific [place] Urine Protein Urine Glucose (UA) Urine Ketones Urine Occult Blood Urine Nitrite Urine Bilirubin Urine Urobilinogen Ur Leukocyte Esterase Urine RBC Urine WBC Ur Squamous Epith Cells Urine Bacteria Urine Mucus COVID-19 (BERENICE) POC Glucose Blood Type Antibody Screen 02/10/20 02/10/20 02/10/20 15:15 16:17 16:37 WBC RBC Hgb Hct MCV MCH MCHC RDW Std Deviation RDW Coeff of Nehemiah Plt Count MPV Immature Gran % (Auto) Neut % (Auto) Lymph % (Auto) Kay % (Auto) Eos % (Auto) Baso % (Auto) Absolute Neuts (auto) Absolute Lymphs (auto) Nucleated RBC % Differential Comment Diff Path Review PT INR APTT Activated Clotting Time 241 H 224 H Specimen Type ZAHIDA Sample Site pH Bicarbonate Actual Total CO2 Base Excess O2 Saturation O2 % ABG pCO2 ABG pO2 VBG pH 7.30 L VBG pO2 146 H VBG HCO3 22 VBG Total CO2 24 VBG O2 Sat (Calc) 99 H VBG Base Excess -4 L POC Mix VBG pCO2 Pt Tmp 45.8 Respiration Rate O2 Delivery Device Vent Mode Tidal Volume POC PEEP Sodium Potassium Chloride Carbon Dioxide Anion Gap BUN Creatinine Estim Creat Clear Calc Est GFR (MDRD) Af Amer Est GFR (MDRD) Non-Af BUN/Creatinine Ratio Glucose Hemoglobin A1c Calcium Magnesium Total Bilirubin AST ALT Alkaline Phosphatase Total Creatine Kinase Troponin I Total Protein Albumin Globulin Albumin/Globulin Ratio Triglycerides Cholesterol LDL Cholesterol VLDL Cholesterol HDL Cholesterol Urine Color Urine Clarity Urine pH Ur Specific [place] Urine Protein Urine Glucose (UA) Urine Ketones Urine Occult Blood Urine Nitrite Urine Bilirubin Urine Urobilinogen Ur Leukocyte Esterase Urine RBC Urine WBC Ur Squamous Epith Cells Urine Bacteria Urine Mucus COVID-19 ([place]ENICE) POC Glucose Blood Type Antibody Screen 02/10/20 02/10/20 02/10/20 16:57 20:05 20:05 WBC RBC Hgb Hct MCV MCH MCHC RDW Std Deviation RDW Coeff of Nehemiah Plt Count MPV Immature Gran % (Auto) Neut % (Auto) Lymph % (Auto) Kay % (Auto) Eos % (Auto) Baso % (Auto) Absolute Neuts (auto) Absolute Lymphs (auto) Nucleated RBC % Differential Comment Diff Path Review PT INR APTT Activated Clotting Time 285 H Specimen Type Sample Site pH Bicarbonate Actual Total CO2 Base Excess O2 Saturation O2 % ABG pCO2 ABG pO2 VBG pH VBG pO2 VBG HCO3 VBG Total CO2 VBG O2 Sat (Calc) VBG Base Excess POC Mix VBG pCO2 Pt Tmp Respiration Rate O2 Delivery Device Vent Mode Tidal Volume POC PEEP Sodium Potassium Chloride Carbon Dioxide Anion Gap BUN Creatinine Estim Creat Clear Calc Est GFR (MDRD) Af Amer Est GFR (MDRD) Non-Af BUN/Creatinine Ratio Glucose Hemoglobin A1c Calcium Magnesium Total Bilirubin AST ALT Alkaline Phosphatase Total Creatine Kinase 2841 H Troponin I 114.000 H* Total Protein Albumin Globulin Albumin/Globulin Ratio Triglycerides 187 Cholesterol LDL Cholesterol VLDL Cholesterol HDL Cholesterol Urine Color Urine Clarity Urine pH Ur Specific [place] Urine Protein Urine Glucose (UA) Urine Ketones Urine Occult Blood Urine Nitrite Urine Bilirubin Urine Urobilinogen Ur Leukocyte Esterase Urine RBC Urine WBC Ur Squamous Epith Cells Urine Bacteria Urine Mucus COVID-19 (BERENICE) POC Glucose Blood Type Antibody Screen 02/10/20 02/10/20 02/10/20 20:05 20:05 20:16 WBC RBC Hgb 12.3 Hct 38.2 MCV MCH MCHC RDW Std Deviation RDW Coeff of Nehemiah Plt Count MPV Immature Gran % (Auto) Neut % (Auto) Lymph % (Auto) Kay % (Auto) Eos % (Auto) Baso % (Auto) Absolute Neuts (auto) Absolute Lymphs (auto) Nucleated RBC % Differential Comment Diff Path Review PT INR APTT Activated Clotting Time 158 H Specimen Type ART Sample Site Art Line pH 7.40 Bicarbonate Actual 23.8 Total CO2 25 Base Excess -1 O2 Saturation 99 O2 % 60 ABG pCO2 38.4 ABG pO2 130 H VBG pH VBG pO2 VBG HCO3 VBG Total CO2 VBG O2 Sat (Calc) VBG Base Excess POC Mix VBG pCO2 Pt Tmp Respiration Rate 14 O2 Delivery Device Adult Vent Vent Mode AC Tidal Volume 450 POC PEEP 5 Sodium Potassium Chloride Carbon Dioxide Anion Gap BUN Creatinine Estim Creat Clear Calc Est GFR (MDRD) Af Amer Est GFR (MDRD) Non-Af BUN/Creatinine Ratio Glucose Hemoglobin A1c Calcium Magnesium Total Bilirubin AST ALT Alkaline Phosphatase Total Creatine Kinase Troponin I Total Protein Albumin Globulin Albumin/Globulin Ratio Triglycerides Cholesterol LDL Cholesterol VLDL Cholesterol HDL Cholesterol Urine Color Urine Clarity Urine pH Ur Specific [place] Urine Protein Urine Glucose (UA) Urine Ketones Urine Occult Blood Urine Nitrite Urine Bilirubin Urine Urobilinogen Ur Leukocyte Esterase Urine RBC Urine WBC Ur Squamous Epith Cells Urine Bacteria Urine Mucus COVID-19 ([facility]ENICE) POC Glucose Blood Type Antibody Screen 02/10/20 02/10/20 02/10/20 20:22 21:00 21:05 WBC RBC Hgb 12.3 Hct 39.4 MCV MCH MCHC RDW Std Deviation RDW Coeff of Nehemiah Plt Count MPV Immature Gran % (Auto) Neut % (Auto) Lymph % (Auto) Kay % (Auto) Eos % (Auto) Baso % (Auto) Absolute Neuts (auto) Absolute Lymphs (auto) Nucleated RBC % Differential Comment Diff Path Review PT INR APTT Activated Clotting Time Specimen Type Sample Site pH Bicarbonate Actual Total CO2 Base Excess O2 Saturation O2 % ABG pCO2 ABG pO2 VBG pH VBG pO2 VBG HCO3 VBG Total CO2 VBG O2 Sat (Calc) VBG Base Excess POC Mix VBG pCO2 Pt Tmp Respiration Rate O2 Delivery Device Vent Mode Tidal Volume POC PEEP Sodium Potassium Chloride Carbon Dioxide Anion Gap BUN Creatinine Estim Creat Clear Calc Est GFR (MDRD) Af Amer Est GFR (MDRD) Non-Af BUN/Creatinine Ratio Glucose Hemoglobin A1c Calcium Magnesium Total Bilirubin AST ALT Alkaline Phosphatase Total Creatine Kinase Troponin I Total Protein Albumin Globulin Albumin/Globulin Ratio Triglycerides Cholesterol LDL Cholesterol VLDL Cholesterol HDL Cholesterol Urine Color Urine Clarity Urine pH Ur Specific [place] Urine Protein Urine Glucose (UA) Urine Ketones Urine Occult Blood Urine Nitrite Urine Bilirubin Urine Urobilinogen Ur Leukocyte Esterase Urine RBC Urine WBC Ur Squamous Epith Cells Urine Bacteria Urine Mucus COVID-19 (BERENICE) POC Glucose 102 Blood Type A POSITIVE Antibody Screen NEGATIVE 02/10/20 02/11/20 02/11/20 22:45 02:55 03:25 WBC 17.9 H RBC 3.81 L Hgb 11.9 L Hct 37.2 MCV 97.6 MCH 31.2 MCHC 32.0 RDW Std Deviation 48.5 H RDW Coeff of Nehemiah 13.6 Plt Count 262 MPV 9.8 Immature Gran % (Auto) 0.700 Neut % (Auto) 60.2 Lymph % (Auto) 27.1 Kay % (Auto) 8.4 Eos % (Auto) 3.0 Baso % (Auto) 0.6 Absolute Neuts (auto) 10.8 H Absolute Lymphs (auto) 4.84 H Nucleated RBC % 0 Differential Comment Diff Path Review May foll PT INR APTT Activated Clotting Time Specimen Type Sample Site pH Bicarbonate Actual Total CO2 Base Excess O2 Saturation O2 % ABG pCO2 ABG pO2 VBG pH VBG pO2 VBG HCO3 VBG Total CO2 VBG O2 Sat (Calc) VBG Base Excess POC Mix VBG pCO2 Pt Tmp Respiration Rate O2 Delivery Device Vent Mode Tidal Volume POC PEEP Sodium Potassium Chloride Carbon Dioxide Anion Gap BUN Creatinine Estim Creat Clear Calc Est GFR (MDRD) Af Amer Est GFR (MDRD) Non-Af BUN/Creatinine Ratio Glucose Hemoglobin A1c Calcium Magnesium Total Bilirubin AST ALT Alkaline Phosphatase Total Creatine Kinase Troponin I 180.000 H* Total Protein Albumin Globulin Albumin/Globulin Ratio Triglycerides Cholesterol LDL Cholesterol VLDL Cholesterol HDL Cholesterol Urine Color Yellow Urine Clarity Clear Urine pH 5.0 Ur Specific [place] 1.020 Urine Protein 15 H Urine Glucose (UA) Normal Urine Ketones Negative Urine Occult Blood 150 H Urine Nitrite Negative Urine Bilirubin Negative Urine Urobilinogen Normal Ur Leukocyte Esterase Negative Urine RBC 10-25 SEEN Urine WBC 0 SEEN Ur Squamous Epith Cells 0 SEEN Urine Bacteria 0 SEEN Urine Mucus 0 SEEN COVID-19 (BERENICE) POC Glucose Blood Type Antibody Screen 02/11/20 03:25 WBC RBC Hgb Hct MCV MCH MCHC RDW Std Deviation RDW Coeff of Nehemiah Plt Count MPV Immature Gran % (Auto) Neut % (Auto) Lymph % (Auto) Kay % (Auto) Eos % (Auto) Baso % (Auto) Absolute Neuts (auto) Absolute Lymphs (auto) Nucleated RBC % Differential Comment Diff Path Review PT INR APTT Activated Clotting Time Specimen Type Sample Site pH Bicarbonate Actual Total CO2 Base Excess O2 Saturation O2 % ABG pCO2 ABG pO2 VBG pH VBG pO2 VBG HCO3 VBG Total CO2 VBG O2 Sat (Calc) VBG Base Excess POC Mix VBG pCO2 Pt Tmp Respiration Rate O2 Delivery Device Vent Mode Tidal Volume POC PEEP Sodium 142 Potassium 4.0 Chloride 110 H Carbon Dioxide 26.0 Anion Gap 6 BUN 13 Creatinine 0.97 Estim Creat Clear Calc 54.13 Est GFR (MDRD) Af Amer 74 Est GFR (MDRD) Non-Af 61 BUN/Creatinine Ratio 13.4 Glucose 124 H Hemoglobin A1c Calcium 6.8 L Magnesium Total Bilirubin 0.60 AST 336 H ALT 113 H Alkaline Phosphatase 58 Total Creatine Kinase Troponin I Total Protein 5.4 L Albumin 2.4 L Globulin 3.0 Albumin/Globulin Ratio 0.8 L Triglycerides 185 Cholesterol 151 LDL Cholesterol 80 VLDL Cholesterol 37 HDL Cholesterol 34 L Urine Color Urine Clarity Urine pH Ur Specific [place] Urine Protein Urine Glucose (UA) Urine Ketones Urine Occult Blood Urine Nitrite Urine Bilirubin Urine Urobilinogen Ur Leukocyte Esterase Urine RBC Urine WBC Ur Squamous Epith Cells Urine Bacteria Urine Mucus COVID-19 (BERENICE) POC Glucose Blood Type Antibody Screen Clinical Impression(s) from Imaging Studies Chest X-Ray 02/10/20 14:44 IMPRESSION: 1. Expected appearance of endotracheal and gastric tubes. 2. No acute cardiorespiratory disease. 3. Coronary bypass grafting. Electronically Signed: Ronny Valentin, at 16:18 EST Tel , Service support , Chest X-Ray 02/10/20 19:50 IMPRESSION: IABP with tip projecting over the aortic arch. Otherwise stable. Electronically Signed: Brandon Hernandez MD ([place]) at 20:13 EST , Service support , KUB X-Ray 02/10/20 19:53 IMPRESSION: Right groin IABP. Enteric/gastric tube. Electronically Signed: Brandon Hernandez MD ([place]) at 20:46 EST , Service support , Current Medications Acetaminophen (Acetaminophen 650 Mg Suppository) 650 mg RECTAL Q4H PRN PRN PRN Reason: Pain Score 1-10/Temp > 100.7 F Acetaminophen (Acetaminophen 650 Mg/20 Ml Udc) 650 mg GT Q6H PRN PRN PRN Reason: Pain Score 1-10/Temp > 100.7 F Last Admin: 02/11/20 04:13 Dose: 650 mg Documented by: Al Hydroxide/Mg Hydroxide (Mag Hydrox/Al Hydrox/Simeth 30 Ml Udc) 30 ml PO Q6H PRN PRN PRN Reason: Gastric Burning Albuterol Sulfate (Albuterol 2.5 Mg/3 Ml Vial.Neb.) 2.5 mg INHALATION Q2H PRN PRN PRN Reason: Dyspnea, wheezing Albuterol/Ipratropium (Ipratropium/Albuterol Sulfate 3 Ml Ampul.Neb) 3 ml INHALATION Q6HWA.RT ANTONIO Last Admin: 02/10/20 22:31 Dose: 3 ml Documented by: Aspirin (Aspirin 81 Mg Tab.Chew) 81 mg PO DAILY@0800 [facility] Atorvastatin Calcium (Atorvastatin Calcium 10 Mg Tablet) 10 mg PO QHS [facility] Last Admin: 02/10/20 23:21 Dose: 10 mg Documented by: Chlorhexidine Gluconate (Chlorhexidine 15 Ml) 15 ml PO BID [facility] Last Admin: 02/10/20 22:14 Dose: 15 ml Documented by: Guaifenesin (Guaifenesin 10 Ml Udc (200mg/10ml)) 10 ml PO Q4H PRN PRN PRN Reason: COUGH Hydralazine HCl (Hydralazine 20 Mg/Ml Vial) 10 mg IV Q4H PRN PRN PRN Reason: SBP > 160 Propofol (Diprivan) 1,000 mg in 100 mls @ 3.732 mls/hr CONT INF .Q12H [facility]; Protocol Last Admin: 02/11/20 05:09 Dose: Not Given Documented by: Fentanyl Citrate 1,000 mcg/ (Sodium Chloride) 100 mls @ 5 mls/hr CONT INF .Q20H [facility]; Protocol Last Titration: 02/11/20 05:00 Dose: 100 mcg/hr, 10 mls/hr Documented by: Pantoprazole Sodium 40 mg/ (Sodium Chloride) 110 mls @ 330 mls/hr IV Q12 [facility] Last Infusion: 02/10/20 23:09 Dose: Infused Documented by: Dexmedetomidine HCl 400 mcg/ (Sodium Chloride) 100 mls @ 7.775 mls/hr CONT INF .[id number] [facility]; Protocol Last Titration: 02/11/20 05:15 Dose: 0.7 mcg/kg/hr, 10.9 mls/hr Documented by: Norepinephrine Bitartrate 8 mg (/ Sodium Chloride) 250 mls @ 9.375 mls/hr CONT INF .[id number] [facility]; Protocol Last Admin: 02/11/20 05:38 Dose: 15 mcg/min, 28.1 mls/hr Documented by: Sodium Chloride () 1,000 mls @ 100 mls/hr IV .Q10H [facility] Last Admin: 02/11/20 00:13 Dose: 100 mls/hr Documented by: Sodium Chloride () 250 mls @ 15 mls/hr IV .[id number] PRN PRN Reason: Saline Flush Sodium Chloride () 250 mls @ 15 mls/hr IV .[id number] PRN PRN Reason: Additional IVPB Infusion Magnesium Hydroxide (Magnesium Hydroxide 30 Ml Udc) 30 ml PO DAILY PRN PRN PRN Reason: Constipation Metoprolol Succinate (Metoprolol(Xl)Succ 25 Mg Tablet) 12.5 mg PO DAILY [facility] Nitroglycerin (Nitroglycerin (Inpatient Use) 0.4 Mg Tab.Subl) 0.4 mg SUBLINGUAL Q5M PRN PRN Reason: CARDIAC/CHEST PAIN Ondansetron HCl (Ondansetron 4 Mg/2 Ml Vial) 4 mg IV Q8H PRN PRN PRN Reason: NAUSEA/VOMITING Prochlorperazine Edisylate (Prochlorperazine 10 Mg/2 Ml Vial) 5 mg IV Q4H PRN PRN PRN Reason: Breakthrough Nausea/Vomiting Psyllium Hydrophilic Mucilloid (Psyllium 1 Packet) 1 packet PO DAILY PRN PRN PRN Reason: Constipation Senna/Docusate Sodium (Senna/Docusate Sodium 1 Tablet) 2 tablet PO BID PRN PRN Reason: Constipation Sodium Chloride (Sodium Cl For Inhalation 15 Ml Vial.Neb.) 5 ml INHALATION Q5M PRN PRN Reason: Suctioning Sodium Chloride (0.9% Saline Lock 10 Ml Syringe) 10 - 40 ml IV UD PRN PRN Reason: Multilumen/Warren Flush Last Admin: 02/11/20 04:24 Dose: 30 ml Documented by: Sodium Chloride (0.9 % Nacl (Sterile) Posiflush 10 Ml) 10 - 40 ml IV UD PRN PRN Reason: Port access or dressing change Sodium Chloride (0.9% Saline Lock 10 Ml Syringe) 10 - 40 ml IV UD PRN PRN Reason: SALINE FLUSH Throat Lozenges (Benzocaine/Menthol 1 Lozenge) 1 lozenge MUCOUS MEM Q2H PRN PRN PRN Reason: SORE THROAT Ticagrelor (Ticagrelor 90 Mg Tablet) 90 mg PO BID [facility] Assessment/Plan Active and Suspected Problems (Last Updated 07/01/17 @ 12:07 by Lisa Ferreira) STEMI (ST elevation myocardial infarction) (Acute) Cardiac arrest (Acute) Torsades de pointes (Acute) Ventricular tachycardia (Acute) NSTEMI (non-ST elevated myocardial infarction) (Acute) Cardiogenic shock (Acute) RECOMMENDATIONS: 1. Hold fentanyl and place patient on spontaneous breathing trial this morning. Possible extubation if passes spontaneous breathing trial. 2. Place PICC line and remove femoral triple-lumen catheter. 3. Continue Levophed and wean to maintain a mean arterial pressure at or above 65 mmHg. 4. Check procalcitonin. 5. Continue bronchodilator therapy. 6. Continue appropriate GI prophylaxis. IMPRESSIONS: 1. Acute on chronic hypoxemic respiratory failure status post cardiac arrest/STEMI/cardiogenic shock The patient presented to the hospital in full cardiac arrest, necessitating revascularization. The patient was intubated as a consequence of her acute presentation. She does have an apparent 2 L/min baseline oxygen requirement along with COPD of unknown severity. There is no readily identifiable source of infection on chest imaging. Accordingly, the patient sedation will be placed on hold this morning and she will be placed on a spontaneous breathing trial. If the patient passes her spontaneous breathing trial, an attempted extubation will be undertaken. Once extubated, supplemental oxygen can be weaned as tolerated. Bedside swallow evaluation can also be completed. The patient will be continued on vasopressor support to maintain hemodynamic stability. However, I would recommend that a PICC line be placed in the patient's femoral triple-lumen catheter be removed. I do suspect that the patient's leukocytosis at presentation was likely a stress response, as no source of infection has been identified. The documented fevers overnight appear to be erroneous and related to a malfunctioning core temp Michaud catheter. 2. History of COPD of unknown severity/chronic tobacco dependency Continue scheduled bronchodilator therapy. Wean supplemental oxygen as tolerated. Nicotine replacement therapy can be offered to the patient while admitted to the hospital. 3. History of coronary artery disease status post CABG Continue current medical management per cardiology recommendations. 4. Hypertension/hyperlipidemia/anxiety Complicates care, management, recovery and prognosis. Hold antihypertensives given tenuous hemodynamics. TIME: 40 minutes of critical care time, independent of procedures, was spent addressing the patient's acute on chronic hypoxemic respiratory failure, status post cardiac arrest, ST segment elevation SC, cardiogenic shock, COPD, review of all data and collaboration with the care team. [id number]) [id number] Critical care first hour
--- NOTE | 2020-02-11 05:55 | EKG12_ITS ---
Test Reason : CPR Blood Pressure : / mmHG Vent. Rate : 101 BPM Atrial Rate : 101 BPM P-R Int : 136 ms QRS Dur : 088 ms QT Int : 380 ms P-R-T Axes : 063 078 084 degrees QTc Int : 492 ms Sinus tachycardia Possible Left atrial enlargement ST elevation consider inferior injury or acute infarct ACUTE MA / STEMI Consider right ventricular involvement in acute inferior infarct Abnormal ECG Confirmed by MICAH BUSTILLOS, SANDRA ([id number]), commissioning editor KENROY HICKS ([id number]) on 02/14/2020 10:16:59 AM Referred By: Jonnie Montalvo Confirmed By:MADIE OBRIEN MD
--- NOTE | 2020-02-11 05:55 | RAD_ITS ---
Intubated EXAMINATION/TECHNIQUE: XR Chest 1 View: COMPARISON: February 10, 2020 FINDINGS: LINES/DEVICES: ET tube is again noted with the tip 4.2 cm proximal to the alina NG tube with the tip in the stomach in similar position to prior study. LUNGS: No consolidation, edema or effusion. No pneumothorax. Left basilar atelectasis similar MEDIASTINUM AND CARDIOVASCULAR STRUCTURES: Cardiac silhouette not enlarged. Central airways and mediastinal contour are unremarkable. BONES AND SOFT TISSUES: Unremarkable. RAD/Chest 1 View (Portable) IMPRESSION: ET tube at the tip 4.2 cm proximal to the alina NG tube similar Left basilar atelectasis at 0617 Reported and signed by: Jami Seay DO Electronically Signed: Jami Seay DO at 6:16 EST Tel , Service support ,
--- NOTE | 2020-02-11 06:22 | NURSING ---
heat treat furnace operator called for PICC line placement. They will call back with an ETA.
[2020-02-11] MEDS: Ipratropium/Albuterol Sulfate 3 ML AMPUL.NEB INHALATION ×3 (06:34→19:01)
[2020-02-11 09:30] LABS: Procalcitonin 0.34 ng/mL (0.00-0.09)
[2020-02-11] MEDS: Morphine 2 MG/ML Syringe 1 MG IV (10:03)
[2020-02-11] MEDS: Ondansetron 4 MG/2 ML Vial IV (10:10)
--- NOTE | 2020-02-11 11:14 | CASEMGMT ---
RN CM Assessment Note Introduced role of CM to patient. Demographics, PCP verified. Pt states she is independent prior to admission, drives and does not use DME. Pt did wish to continue assessment after a few minutes due to not feeling well and conversation deferred. Diagnosis: NSTEMI PCP: Dr. Harvey Chow Specialists: Dr. Montalvo Insurance: [facility] Preferred Pharmacy: [facility] Prescription Benefit: yes LNOK: Son, Eduardo REYNOSO Living Arrangements: Lives in apartment independently. Stated she was independent prior to admission. Will continue to follow for any care needs on discharge. Tranportation: Drives DME: walker, cane-does not use. Home oxygen through [employer]. Call to [facility] to verify pt has concentrator and portable tanks. Pt states she only wears@ night. Patient DC Goals: Home DC Plan: anticipate home on discharge. Will continue to follow and address any dc needs. CM available for discharge planning coordination. Jose Roberto MEYER RN ACM
--- NOTE | 2020-02-11 11:51 | NURSING ---
1136- Left Femoral Arterial sheath pulled by SETTER OFF: BP 115/55 HR 98 1141- BP 97/42 HR 98 pressure being held 1146- BP 113/46 HR 98 pressure being held 1151- BP 99/48 HR 95 pressure being held 1156- Hemostasis Obtained Left Femoral Artery: BP116/82 HR 97, Opsite applied, No bleeding, NO hematoma, Dressing clean dry and intact.
[2020-02-11 12:29] LABS: Pathologist Review Reviewed
[2020-02-11] MEDS: Metoprolol(XL)Succ 25 MG Tablet 12.5 MG PO (12:51)
[2020-02-11] MEDS: Aspirin 81 MG TAB.CHEW PO (12:52)
[2020-02-11] MEDS: TICAGRELOR 90 MG TABLET PO ×2 (12:52→21:05)
[2020-02-11] MEDS: Hydrocortisone Sod Succinate 100 MG/2 ML Vial 50 MG IV ×3 (12:52→23:16)
[2020-02-11] MEDS: oxyCODONE 5 MG Tablet PO ×3 (12:53→23:19)
[2020-02-11] MEDS: Acetaminophen 325 MG Tablet 650 MG PO (14:12)
--- NOTE | 2020-02-11 14:29 | PCM.PN.HOSP ---
Patient Problems: Active and Suspected Problems (Last Updated 07/01/17 @ 12:07 by Lisa Ferreira) STEMI (ST elevation myocardial infarction) (Acute) Cardiac arrest (Acute) Torsades de pointes (Acute) Ventricular tachycardia (Acute) NSTEMI (non-ST elevated myocardial infarction) (Acute) Cardiogenic shock (Acute) Reason for Visit: Extubated today. Pain in chest and back. Vitals/I&O's: Vital Signs Temp Pulse Resp BP Pulse Ox 38.3 C H 99 18 106/55 L 98 02/11/20 14:00 02/11/20 14:00 02/11/20 14:00 02/11/20 14:00 02/11/20 14:00 Oxygen Flow Rate (L/min) 5 Oxygen Delivery Method Nasal Cannula Weight: 62.2 kg Body Mass Index (BMI) 21.9 Finger Stick Blood Glucose 61 Intake and Output for Last 24 Hours 02/09/20 02/10/20 02/11/20 23:59 23:59 23:59 Intake Total 2363.13 / 2393.49 1720.98 / 1720.98 Output Total 325 / 325 575 / 575 Balance 2038.13 / 2068.49 1145.98 / 1145.98 General: Alert, No apparent distress, - - raspy voice HEENT: Atraumatic, Normocephalic Oral: Moist Mucosa, No Gingival or Mucosal Lesions/ Ulcerations Neck: No Nodes, Thyroid Normal Size and Texture Lungs: Normal air movement, - - coarse breath sounds Cardiovascular: Regular rate, Regular Rhythm, Normal S1, Normal S2, No murmurs Abdomen: Bowel Sounds Present, Soft, Non Tender, Non-Distended, No Hepato-splenomegaly Extremities: No edema, No Calf Tenderness Skin: No rashes, No breakdown Psych/Mental Status: Normal Affect, Appropriate Microbiology Past 72 Hours 02/10/20 05:45 Sputum, Induced/Lukens Gram Stain - Final Laboratory Results 02/10/20 14:45: WBC 17.2 H, RBC 5.24, Hgb 16.1 H, Hct 50.4 H, MCV 96.2, MCH 30.7, MCHC 31.9 L, RDW Std Deviation 46.8 H, RDW Coeff of Nehemiah 13.1, Plt Count 260, MPV 9.7, Immature Gran % (Auto) 0.800, Neut % (Auto) 39.6 L, Lymph % (Auto) 51.1 H, [place] % (Auto) 5.7, Eos % (Auto) 2.2, Baso % (Auto) 0.6, Absolute Neuts (auto) 6.8, Absolute Lymphs (auto) 8.78 H, Nucleated RBC % 0, Differential Comment SCANNED 02/10/20 14:45: Sodium 140, Potassium 3.9, Chloride 108 H, Carbon Dioxide 20.0 L, Anion Gap 12, BUN 14, Creatinine 1.05 H, Estim Creat Clear Calc 50.00, Est GFR (MDRD) Af Amer 68, Est GFR (MDRD) Non-Af 56 L, BUN/Creatinine Ratio 13.3, Glucose 176 H, Calcium 8.7, Magnesium 3.6 H, Troponin I 0.739 H* 02/10/20 14:50: COVID-19 (BERENICE) Not Detected 02/10/20 15:09: APTT 26.3 02/10/20 15:09: PT 12.5, INR 1.0 02/10/20 15:09: Hemoglobin A1c 5.8 H 02/10/20 15:15: Specimen Type ZAHIDA, VBG pH 7.30 L, VBG pO2 146 H, VBG HCO3 22, VBG Total CO2 24, VBG O2 Sat (Calc) 99 H, VBG Base Excess -4 L, POC Mix VBG pCO2 Pt Tmp 45.8 02/10/20 16:17: Activated Clotting Time 241 H 02/10/20 16:37: Activated Clotting Time 224 H 02/10/20 16:57: Activated Clotting Time 285 H 02/10/20 20:05: Total Creatine Kinase 2841 H, Triglycerides 187 02/10/20 20:05: Troponin I 114.000 H* 02/10/20 20:05: Hgb 12.3, Hct 38.2 02/10/20 20:05: Specimen Type ART, Sample Site Art Line, pH 7.40, Bicarbonate Actual 23.8, Total CO2 25, Base Excess -1, O2 Saturation 99, O2 % 60, ABG pCO2 38.4, ABG pO2 130 H, Respiration Rate 14, O2 Delivery Device Adult Vent, Vent Mode AC, Tidal Volume 450, POC PEEP 5 02/10/20 20:16: Activated Clotting Time 158 H 12/27/20 20:22: POC Glucose 102 02/10/20 21:00: Hgb 12.3, Hct 39.4 02/10/20 21:05: Blood Type A POSITIVE, Antibody Screen NEGATIVE 02/10/20 22:45: Troponin I 180.000 H* 02/11/20 02:55: Urine Color Yellow, Urine Clarity Clear, Urine pH 5.0, Ur Specific [place] 1.020, Urine Protein 15 H, Urine Glucose (UA) Normal, Urine Ketones Negative, Urine Occult Blood 150 H, Urine Nitrite Negative, Urine Bilirubin Negative, Urine Urobilinogen Normal, Ur Leukocyte Esterase Negative, Urine RBC 10-25 SEEN, Urine WBC 0 SEEN, Ur Squamous Epith Cells 0 SEEN, Urine Bacteria 0 SEEN, Urine Mucus 0 SEEN 02/11/20 03:25: WBC 17.9 H, RBC 3.81 L, Hgb 11.9 L, Hct 37.2, MCV 97.6, MCH 31.2, MCHC 32.0, RDW Std Deviation 48.5 H, RDW Coeff of Nehemiah 13.6, Plt Count 262, MPV 9.8, Immature Gran % (Auto) 0.700, Neut % (Auto) 60.2, Lymph % (Auto) 27.1, [place] % (Auto) 8.4, Eos % (Auto) 3.0, Baso % (Auto) 0.6, Absolute Neuts (auto) 10.8 H, Absolute Lymphs (auto) 4.84 H, Nucleated RBC % 0, Diff Path Review Reviewed 02/11/20 03:25: Sodium 142, Potassium 4.0, Chloride 110 H, Carbon Dioxide 26.0, Anion Gap 6, BUN 13, Creatinine 0.97, Estim Creat Clear Calc 54.13, Est GFR (MDRD) Af Amer 74, Est GFR (MDRD) Non-Af 61, BUN/Creatinine Ratio 13.4, Glucose 124 H, Calcium 6.8 L, Total Bilirubin 0.60, AST 336 H, ALT 113 H, Alkaline Phosphatase 58, Total Protein 5.4 L, Albumin 2.4 L, Globulin 3.0, Albumin/Globulin Ratio 0.8 L, Triglycerides 185, Cholesterol 151, LDL Cholesterol 80, VLDL Cholesterol 37, HDL Cholesterol 34 L 02/11/20 08:45: Procalcitonin 0.34 H Current Medications Acetaminophen (Acetaminophen 325 Mg Tablet) 650 mg PO Q4H PRN PRN PRN Reason: Pain 1-10 or Fever Last Admin: 02/11/20 14:12 Dose: 650 mg Documented by: Al Hydroxide/Mg Hydroxide (Mag Hydrox/Al Hydrox/Simeth 30 Ml Udc) 30 ml PO Q6H PRN PRN PRN Reason: Gastric Burning Albuterol Sulfate (Albuterol 2.5 Mg/3 Ml Vial.Neb.) 2.5 mg INHALATION Q2H PRN PRN PRN Reason: Dyspnea, wheezing Albuterol/Ipratropium (Ipratropium/Albuterol Sulfate 3 Ml Ampul.Neb) 3 ml INHALATION Q6HWA.RT [facility] Last Admin: 02/11/20 14:00 Dose: 3 ml Documented by: Aspirin (Aspirin 81 Mg Tab.Chew) 81 mg PO DAILY@0800 [facility] Last Admin: 02/11/20 12:52 Dose: 81 mg Documented by: Atorvastatin Calcium (Atorvastatin Calcium 10 Mg Tablet) 10 mg PO QHS [facility] Last Admin: 02/10/20 23:21 Dose: 10 mg Documented by: Hydralazine HCl (Hydralazine 20 Mg/Ml Vial) 10 mg IV Q4H PRN PRN PRN Reason: SBP > 160 Hydrocortisone (Hydrocortisone 10 Mg Tablet) 20 mg PO QAM [facility] Hydrocortisone (Hydrocortisone 10 Mg Tablet) 10 mg PO QPM [facility] Hydrocortisone Sodium Succinate (Hydrocortisone Sod Succinate 100 Mg/2 Ml Vial) 50 mg IV Q6 [facility] Stop: 02/12/20 00:01 Last Admin: 02/11/20 12:52 Dose: 50 mg Documented by: Pantoprazole Sodium 40 mg/ (Sodium Chloride) 110 mls @ 330 mls/hr IV Q12 [facility] Last Infusion: 02/11/20 10:45 Dose: Infused Documented by: Norepinephrine Bitartrate 8 mg (/ Sodium Chloride) 250 mls @ 9.375 mls/hr CONT INF .[id number] [facility]; Protocol Last Titration: 02/11/20 14:00 Dose: 10 mcg/min, 18.8 mls/hr Documented by: Sodium Chloride () 1,000 mls @ 100 mls/hr IV .Q10H [facility] Last Admin: 02/11/20 10:16 Dose: 100 mls/hr Documented by: Sodium Chloride () 250 mls @ 15 mls/hr IV .[id number] PRN PRN Reason: Saline Flush Sodium Chloride () 250 mls @ 15 mls/hr IV .[id number] PRN PRN Reason: Additional IVPB Infusion Magnesium Hydroxide (Magnesium Hydroxide 30 Ml Udc) 30 ml PO DAILY PRN PRN PRN Reason: Constipation Metoprolol Succinate (Metoprolol(Xl)Succ 25 Mg Tablet) 12.5 mg PO DAILY ANTONIO Last Admin: 02/11/20 12:51 Dose: 12.5 mg Documented by: Nitroglycerin (Nitroglycerin (Inpatient Use) 0.4 Mg Tab.Subl) 0.4 mg SUBLINGUAL Q5M PRN PRN Reason: CARDIAC/CHEST PAIN Ondansetron HCl (Ondansetron 4 Mg/2 Ml Vial) 4 mg IV Q8H PRN PRN PRN Reason: NAUSEA/VOMITING Last Admin: 02/11/20 10:10 Dose: 4 mg Documented by: Oxycodone HCl (Oxycodone 5 Mg Tablet) 5 mg PO Q4H PRN PRN PRN Reason: Pain Score 6-10 Last Admin: 02/11/20 12:53 Dose: 5 mg Documented by: Prochlorperazine Edisylate (Prochlorperazine 10 Mg/2 Ml Vial) 5 mg IV Q4H PRN PRN PRN Reason: Breakthrough Nausea/Vomiting Psyllium Hydrophilic Mucilloid (Psyllium 1 Packet) 1 packet PO DAILY PRN PRN PRN Reason: Constipation Senna/Docusate Sodium (Senna/Docusate Sodium 1 Tablet) 2 tablet PO BID PRN PRN Reason: Constipation Sodium Chloride (Sodium Cl For Inhalation 15 Ml Vial.Neb.) 5 ml INHALATION Q5M PRN PRN Reason: Suctioning Sodium Chloride (0.9% Saline Lock 10 Ml Syringe) 10 - 40 ml IV UD PRN PRN Reason: Multilumen/Warren Flush Last Admin: 02/11/20 10:04 Dose: 20 ml Documented by: Sodium Chloride (0.9 % Nacl (Sterile) Posiflush 10 Ml) 10 - 40 ml IV UD PRN PRN Reason: Port access or dressing change Sodium Chloride (0.9% Saline Lock 10 Ml Syringe) 10 - 40 ml IV UD PRN PRN Reason: SALINE FLUSH Throat Lozenges (Benzocaine/Menthol 1 Lozenge) 1 lozenge MUCOUS MEM Q2H PRN PRN PRN Reason: SORE THROAT Ticagrelor (Ticagrelor 90 Mg Tablet) 90 mg PO BID [facility] Last Admin: 02/11/20 12:52 Dose: 90 mg Documented by: ROYA Vital Signs/Narrative: Vital Signs Temp Pulse Resp BP Pulse Ox 02/11/20 14:00 38.3 C H 99 18 106/55 L 98 02/11/20 13:30 100 107/48 L 02/11/20 13:15 98 23 H 109/51 L 93 02/11/20 13:00 99 24 H 117/50 L 91 02/11/20 12:51 98 117/58 L 02/11/20 12:45 102 H 117/58 L 02/11/20 12:30 100 127/80 H 02/11/20 12:15 95 22 H 110/59 L 93 02/11/20 12:14 95 02/11/20 12:00 37.9 C H 96 28 H 116/82 H 93 02/11/20 11:45 113/46 L 02/11/20 11:30 115/55 L 02/11/20 11:15 90 118/50 L 02/11/20 11:00 37.9 C H 89 27 H 117/69 97 Medical Necessity - Tobacco Use Smoking Status: Unknown if ever smoked Tobacco Use: Cigarettes Assessment/Plan All Active Problems (Last Updated 07/01/17 @ 12:07 by Lisa Ferreira) STEMI (ST elevation myocardial infarction) (Acute) Cardiac arrest (Acute) Torsades de pointes (Acute) Ventricular tachycardia (Acute) NSTEMI (non-ST elevated myocardial infarction) (Acute) Cardiogenic shock (Acute) 1. NSTEMI STEMI ruled out peak troponin 180 s/p PCI to SVG to OM no need to TF to tertiary facility at this time ASA, ticagrelor, atorvastatin (low dose given prior intolerance) cardiology following 2. Cardiogenic shock 2/2 above and arrest on norepinephrine solu-cortef 3. post-cardiac arrest torsade de pointes 4. Acute on chronic hypoxic respiratory failure extubated 02/10 5. VTE prophylaxis: LMWH Inpatient E&M: [id number] Subs Hosp L2
--- NOTE | 2020-02-11 14:49 | PCM.PN.CARD ---
Subjectve: Patient has been extubated this morning. The ICU team noted that the patient was found steroids for adrenal insufficiency and she has been restarted on this. Her Levophed dose also has been decreased. Patient has chest discomfort that appears to be musculoskeletal secondary to CPR. Objective: Vital Signs Temp Pulse Resp BP Pulse Ox 100.9 F H 99 18 106/55 L 98 02/11/20 14:00 02/11/20 14:00 02/11/20 14:00 02/11/20 14:00 02/11/20 14:00 Oxygen Flow Rate (L/min) 5 Oxygen Delivery Method Nasal Cannula Weight: 137 lb 2.04 oz Body Mass Index (BMI) 21.9 Finger Stick Blood Glucose 61 Intake and Output for Last 24 Hours 02/09/20 02/10/20 02/11/20 23:59 23:59 23:59 Intake Total 2363.13 / 2393.49 1720.98 / 1720.98 Output Total 325 / 325 575 / 575 Balance 2038.13 / 2068.49 1145.98 / 1145.98 General: Awake, Alert, Oriented x 3 HEENT: Atraumatic Extremities: No edema Psych/Mental Status: Appropriate 02/10/20 14:45: WBC 17.2 H, RBC 5.24, Hgb 16.1 H, Hct 50.4 H, MCV 96.2, MCH 30.7, MCHC 31.9 L, Plt Count 260, MPV 9.7, Immature Gran % (Auto) 0.800, Neut % (Auto) 39.6 L, Lymph % (Auto) 51.1 H, [place] % (Auto) 5.7, Eos % (Auto) 2.2, Baso % (Auto) 0.6, Absolute Neuts (auto) 6.8, Nucleated RBC % 0 02/10/20 14:45: Sodium 140, Potassium 3.9, Chloride 108 H, Carbon Dioxide 20.0 L, Anion Gap 12, BUN 14, Creatinine 1.05 H, Est GFR (MDRD) Af Amer 68, Est GFR (MDRD) Non-Af 56 L, BUN/Creatinine Ratio 13.3, Glucose 176 H, Calcium 8.7, Magnesium 3.6 H, Troponin I 0.739 H* 02/10/20 15:09: APTT 26.3 02/10/20 15:09: PT 12.5, INR 1.0 02/10/20 15:09: Hemoglobin A1c 5.8 H 02/10/20 15:15: VBG pH 7.30 L, VBG pO2 146 H, VBG HCO3 22, VBG O2 Sat (Calc) 99 H, VBG Base Excess -4 L 02/10/20 20:05: Triglycerides 187 02/10/20 20:05: Troponin I 114.000 H* 02/10/20 20:05: Hgb 12.3, Hct 38.2 02/10/20 20:05: pH 7.40, Bicarbonate Actual 23.8, Base Excess -1, O2 Saturation 99, ABG pCO2 38.4, ABG pO2 130 H 02/10/20 21:00: Hgb 12.3, Hct 39.4 02/10/20 22:45: Troponin I 180.000 H* 02/11/20 02:55: Urine Color Yellow, Urine Clarity Clear, Urine pH 5.0, Ur Specific [place] 1.020, Urine Protein 15 H, Urine Glucose (UA) Normal, Urine Ketones Negative, Urine Occult Blood 150 H, Urine Nitrite Negative, Urine Bilirubin Negative, Urine Urobilinogen Normal, Ur Leukocyte Esterase Negative, Urine RBC 10-25 SEEN, Urine WBC 0 SEEN 02/11/20 03:25: WBC 17.9 H, RBC 3.81 L, Hgb 11.9 L, Hct 37.2, MCV 97.6, MCH 31.2, MCHC 32.0, Plt Count 262, MPV 9.8, Immature Gran % (Auto) 0.700, Neut % (Auto) 60.2, Lymph % (Auto) 27.1, [place] % (Auto) 8.4, Eos % (Auto) 3.0, Baso % (Auto) 0.6, Absolute Neuts (auto) 10.8 H, Nucleated RBC % 0 02/11/20 03:25: Sodium 142, Potassium 4.0, Chloride 110 H, Carbon Dioxide 26.0, Anion Gap 6, BUN 13, Creatinine 0.97, Est GFR (MDRD) Af Amer 74, Est GFR (MDRD) Non-Af 61, BUN/Creatinine Ratio 13.4, Glucose 124 H, Calcium 6.8 L, Total Bilirubin 0.60, Triglycerides 185, Cholesterol 151, LDL Cholesterol 80, VLDL Cholesterol 37, HDL Cholesterol 34 L Rhythm: EKG: ECHO: Stress Test: Cardiac Cath: PCI: CT Surgery: Holter monitor: EPS: PPM: CXR: Chest CT Scan: Medical Necessity - Tobacco Use Smoking Status: Unknown if ever smoked Tobacco Use: Cigarettes Assessment/Plan 1. ST elevation WI: Status post PCI to SVG to OM. Continue aspirin, statin, Brilinta. Continue to wean off Levophed. Not on a beta-nakul or ANGIE inhibitor at this time because of low blood pressure requiring pressors. 2. Hypotension: Appreciate ICU team input with adrenal insufficiency. Agree that this could also be contributing to fair extent to patient's hypotension. Currently on Levophed that is being weaned off. 3. Coronary artery disease: Patient's angiogram was reviewed. Her bypass surgery report was also reviewed. KENNY was used as a free pedicle to the LAD. This was not visualized during the procedure done as an emergency yesterday. The LAD is occluded/subtotally occluded. Faint filling of the LAD is noted at the time of LV gram and is likely through the KENNY. The anterior wall is also moving well. Most likely the KENNY to LAD is patent. As an outpatient if patient continues to have anginal symptoms we can repeat the angiography.
[2020-02-11] MEDS: LORazepam 0.5 MG Tablet PO (21:05)
[2020-02-11] MEDS: Atorvastatin Calcium 10 MG Tablet PO (21:05)
[2020-02-12] VITALS (43 sets, daily range): BP systolic 92–143; BP diastolic 43–84; PULSE 71–100; RESP 13–40; TEMP 36.6–36.9; O2SAT 90–98
--- NOTE | 2020-02-12 03:43 | NURSING ---
Patient up to the chair with help from this RN and the TEXTILE SCIENCE TECHNICIAN at this time.
[2020-02-12 03:53] LABS: Anion Gap 5 (5-15); BUN 8 mg/dL (7-18); BUN/Creat Ratio 12.4 RATIO (10-20); Calcium,Total 7.1 mg/dL (8.5-10.1); Chloride 109 mmol/L (98-107); Creatinine, Serum 0.64 mg/dL (0.55-1.02); EST Glomerular Filtration Rate 98 mL/min (>60); Est Glom Filt Rate - Afr Amer 119 mL/min (>60); Estimated Creatinine Clearance 82.04 ml/min; Glucose 159 mg/dL (74-106); Potassium 3.6 mmol/L (3.5-5.1); Sodium Level 139 mmol/L (136-145)
[2020-02-12 04:07] LABS: Absolute Lymphocyte Count 0.78 X10^3/uL (0.83-4.51); Absolute Neutrophil Count 16.9 X10^3/uL (2.0-7.7); Basophil# 0.04 X10^3/uL; Basophil% 0.2 % (0-1); Hematocrit 32.5 % (37-47); Hemoglobin 10.6 g/dL (12.0-15.0); Lymphocyte # 0.78 X10^3/ul (4.0); Lymphocyte % 4.2 % (19-41); Mean Corp Hgb Conc 32.6 g/dL (32-36); Mean Corpuscular Hgb 31.2 pg (27.0-32.0); Mean Corpuscular Volume 95.6 fL (81-99); Mean Platelet Vol. 9.8 fl (6.2-12.0); Monocyte# 0.61 X10^3/uL; Monocyte% 3.3 % (0-10); NRBC Flagged by Analyzer 0 % (0-5); Neutrophil # 16.89 X10^3/uL (2.7-7.7); Neutrophil % 91.8 % (47-70); Platelet Count 199 K/mm3 (150-450); RBC Distribution Width CV 13.2 % (11.6-14.6); RBC Distribution Width SD 46.5 fl (35.1-43.9); White Blood Count 18.4 K/mm3 (4.4-11.0)
[2020-02-12] MEDS: 0.9% Normal Saline 1,000 ML 100 ML IV (05:33)
[2020-02-12] MEDS: oxyCODONE 5 MG Tablet PO ×4 (05:36→21:23)
[2020-02-12] MEDS: Hydrocortisone Sod Succinate 100 MG/2 ML Vial 50 MG IV ×4 (06:25→23:27)
[2020-02-12] MEDS: Enoxaparin 40 MG/0.4 ML Syringe SC (06:25)
--- NOTE | 2020-02-12 06:26 | PCM.PN.INT ---
Subjective: The patient was seen and examined at the bedside this morning. Events from the last 24 hours have been reviewed. The patient is currently afebrile, hemodynamically stable and maintaining appropriate oxygen saturations on 5 L/min via nasal cannula. The patient remains on Levophed to maintain hemodynamic stability. The patient has done well from a respiratory perspective following extubation yesterday. She did advise me after her extubation that she does have a history of adrenal insufficiency and is normally on baseline hydrocortisone therapy at home. Therefore, the patient was started on stress dose steroids. Accordingly, her vasopressor requirement was able to be weaned over the course of the night. 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 Objective: The patient's most recent lab work, culture data and imaging studies have all been personally reviewed. Surface echocardiogram revealed normal LV size with an ejection fraction of 40% and stage I diastolic dysfunction. Coronavirus PCR was negative on February 09. 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 Blood cultures have shown no growth to date. General: Alert, Cooperative, No apparent distress HEENT: Atraumatic, PERRLA, Normocephalic Oral: No Gingival or Mucosal Lesions/ Ulcerations Neck: Supple, No Nodes, Trachea Midline Lungs: No rhonchi, No wheeze, No rales, Diminished Cardiovascular: Regular rate, Regular Rhythm, Normal S1, Normal S2, No murmurs Abdomen: Bowel Sounds Present, Soft, Non Tender Extremities: No clubbing, No cyanosis, No edema Skin: No breakdown Musculoskeletal: No Tenderness to Palpation of Joints or Extremities Lymphatic: No Cervical, Supraclavicular, or Inguinal Adenopathy Neurological: Cranial nerves II-XII grossly intact, Neuro grossly intact Psych/Mental Status: Normal Affect, Appropriate Vital Signs Temp Pulse Resp BP Pulse Ox 98.5 F 71 20 H 131/53 H 98 02/12/20 00:00 02/12/20 05:01 02/12/20 05:01 02/12/20 05:30 02/12/20 05:01 Oxygen Flow Rate (L/min) 6 Oxygen Delivery Method Nasal Cannula Weight: 137 lb 2.04 oz Body Mass Index (BMI) 21.9 Finger Stick Blood Glucose 61 Intake and Output for Last 24 Hours 02/10/20 02/11/20 02/12/20 23:59 23:59 23:59 Intake Total 2363.13 / 2393.49 3892.73 / 3920.23 1122.01 / 1122.01 Output Total 325 / 325 1265 / 1265 225 / 225 Balance 2038.13 / 2068.49 2627.73 / 2655.23 897.01 / 897.01 Labs (Last 48 Hours) 02/10/20 02/10/20 02/10/20 14:45 14:45 14:50 WBC 17.2 H RBC 5.24 Hgb 16.1 H Hct 50.4 H MCV 96.2 MCH 30.7 MCHC 31.9 L RDW Std Deviation 46.8 H RDW Coeff of Nehemiah 13.1 Plt Count 260 MPV 9.7 Immature Gran % (Auto) 0.800 Neut % (Auto) 39.6 L Lymph % (Auto) 51.1 H Castro % (Auto) 5.7 Eos % (Auto) 2.2 Baso % (Auto) 0.6 Absolute Neuts (auto) 6.8 Absolute Lymphs (auto) 8.78 H Nucleated RBC % 0 Differential Comment SCANNED Diff Path Review PT INR APTT Activated Clotting Time Specimen Type Sample Site pH Bicarbonate Actual Total CO2 Base Excess O2 Saturation O2 % ABG pCO2 ABG pO2 VBG pH VBG pO2 VBG HCO3 VBG Total CO2 VBG O2 Sat (Calc) VBG Base Excess POC Mix VBG pCO2 Pt Tmp Respiration Rate O2 Delivery Device Vent Mode Tidal Volume POC PEEP Sodium 140 Potassium 3.9 Chloride 108 H Carbon Dioxide 20.0 L Anion Gap 12 BUN 14 Creatinine 1.05 H Estim Creat Clear Calc 50.00 Est GFR (MDRD) Af Amer 68 Est GFR (MDRD) Non-Af 56 L BUN/Creatinine Ratio 13.3 Glucose 176 H Hemoglobin A1c Calcium 8.7 Magnesium 3.6 H Total Bilirubin AST ALT Alkaline Phosphatase Total Creatine Kinase Troponin I 0.739 H* Total Protein Albumin Globulin Albumin/Globulin Ratio Triglycerides Cholesterol LDL Cholesterol VLDL Cholesterol HDL Cholesterol Procalcitonin Urine Color Urine Clarity Urine pH Ur Specific [place] Urine Protein Urine Glucose (UA) Urine Ketones Urine Occult Blood Urine Nitrite Urine Bilirubin Urine Urobilinogen Ur Leukocyte Esterase Urine RBC Urine WBC Ur Squamous Epith Cells Urine Bacteria Urine Mucus COVID-19 (BERENICE) Not Detected POC Glucose Blood Type Antibody Screen 02/10/20 02/10/20 02/10/20 15:09 15:09 15:09 WBC RBC Hgb Hct MCV MCH MCHC RDW Std Deviation RDW Coeff of Nehemiah Plt Count MPV Immature Gran % (Auto) Neut % (Auto) Lymph % (Auto) Castro % (Auto) Eos % (Auto) Baso % (Auto) Absolute Neuts (auto) Absolute Lymphs (auto) Nucleated RBC % Differential Comment Diff Path Review PT 12.5 INR 1.0 APTT 26.3 Activated Clotting Time Specimen Type Sample Site pH Bicarbonate Actual Total CO2 Base Excess O2 Saturation O2 % ABG pCO2 ABG pO2 VBG pH VBG pO2 VBG HCO3 VBG Total CO2 VBG O2 Sat (Calc) VBG Base Excess POC Mix VBG pCO2 Pt Tmp Respiration Rate O2 Delivery Device Vent Mode Tidal Volume POC PEEP Sodium Potassium Chloride Carbon Dioxide Anion Gap BUN Creatinine Estim Creat Clear Calc Est GFR (MDRD) Af Amer Est GFR (MDRD) Non-Af BUN/Creatinine Ratio Glucose Hemoglobin A1c 5.8 H Calcium Magnesium Total Bilirubin AST ALT Alkaline Phosphatase Total Creatine Kinase Troponin I Total Protein Albumin Globulin Albumin/Globulin Ratio Triglycerides Cholesterol LDL Cholesterol VLDL Cholesterol HDL Cholesterol Procalcitonin Urine Color Urine Clarity Urine pH Ur Specific [place] Urine Protein Urine Glucose (UA) Urine Ketones Urine Occult Blood Urine Nitrite Urine Bilirubin Urine Urobilinogen Ur Leukocyte Esterase Urine RBC Urine WBC Ur Squamous Epith Cells Urine Bacteria Urine Mucus COVID-19 (BERENICE) POC Glucose Blood Type Antibody Screen 02/10/20 02/10/20 02/10/20 15:15 16:17 16:37 WBC RBC Hgb Hct MCV MCH MCHC RDW Std Deviation RDW Coeff of Nehemiah Plt Count MPV Immature Gran % (Auto) Neut % (Auto) Lymph % (Auto) Castro % (Auto) Eos % (Auto) Baso % (Auto) Absolute Neuts (auto) Absolute Lymphs (auto) Nucleated RBC % Differential Comment Diff Path Review PT INR APTT Activated Clotting Time 241 H 224 H Specimen Type ZAHIDA Sample Site pH Bicarbonate Actual Total CO2 Base Excess O2 Saturation O2 % ABG pCO2 ABG pO2 VBG pH 7.30 L VBG pO2 146 H VBG HCO3 22 VBG Total CO2 24 VBG O2 Sat (Calc) 99 H VBG Base Excess -4 L POC Mix VBG pCO2 Pt Tmp 45.8 Respiration Rate O2 Delivery Device Vent Mode Tidal Volume POC PEEP Sodium Potassium Chloride Carbon Dioxide Anion Gap BUN Creatinine Estim Creat Clear Calc Est GFR (MDRD) Af Amer Est GFR (MDRD) Non-Af BUN/Creatinine Ratio Glucose Hemoglobin A1c Calcium Magnesium Total Bilirubin AST ALT Alkaline Phosphatase Total Creatine Kinase Troponin I Total Protein Albumin Globulin Albumin/Globulin Ratio Triglycerides Cholesterol LDL Cholesterol VLDL Cholesterol HDL Cholesterol Procalcitonin Urine Color Urine Clarity Urine pH Ur Specific [place] Urine Protein Urine Glucose (UA) Urine Ketones Urine Occult Blood Urine Nitrite Urine Bilirubin Urine Urobilinogen Ur Leukocyte Esterase Urine RBC Urine WBC Ur Squamous Epith Cells Urine Bacteria Urine Mucus COVID-19 (BERENICE) POC Glucose Blood Type Antibody Screen 02/10/20 02/10/20 02/10/20 16:57 20:05 20:05 WBC RBC Hgb Hct MCV MCH MCHC RDW Std Deviation RDW Coeff of Nehemiah Plt Count MPV Immature Gran % (Auto) Neut % (Auto) Lymph % (Auto) Castro % (Auto) Eos % (Auto) Baso % (Auto) Absolute Neuts (auto) Absolute Lymphs (auto) Nucleated RBC % Differential Comment Diff Path Review PT INR APTT Activated Clotting Time 285 H Specimen Type Sample Site pH Bicarbonate Actual Total CO2 Base Excess O2 Saturation O2 % ABG pCO2 ABG pO2 VBG pH VBG pO2 VBG HCO3 VBG Total CO2 VBG O2 Sat (Calc) VBG Base Excess POC Mix VBG pCO2 Pt Tmp Respiration Rate O2 Delivery Device Vent Mode Tidal Volume POC PEEP Sodium Potassium Chloride Carbon Dioxide Anion Gap BUN Creatinine Estim Creat Clear Calc Est GFR (MDRD) Af Amer Est GFR (MDRD) Non-Af BUN/Creatinine Ratio Glucose Hemoglobin A1c Calcium Magnesium Total Bilirubin AST ALT Alkaline Phosphatase Total Creatine Kinase 2841 H Troponin I 114.000 H* Total Protein Albumin Globulin Albumin/Globulin Ratio Triglycerides 187 Cholesterol LDL Cholesterol VLDL Cholesterol HDL Cholesterol Procalcitonin Urine Color Urine Clarity Urine pH Ur Specific [place] Urine Protein Urine Glucose (UA) Urine Ketones Urine Occult Blood Urine Nitrite Urine Bilirubin Urine Urobilinogen Ur Leukocyte Esterase Urine RBC Urine WBC Ur Squamous Epith Cells Urine Bacteria Urine Mucus COVID-19 (BERENICE) POC Glucose Blood Type Antibody Screen 02/10/20 02/10/20 02/10/20 20:05 20:05 20:16 WBC RBC Hgb 12.3 Hct 38.2 MCV MCH MCHC RDW Std Deviation RDW Coeff of Nehemiah Plt Count MPV Immature Gran % (Auto) Neut % (Auto) Lymph % (Auto) Castro % (Auto) Eos % (Auto) Baso % (Auto) Absolute Neuts (auto) Absolute Lymphs (auto) Nucleated RBC % Differential Comment Diff Path Review PT INR APTT Activated Clotting Time 158 H Specimen Type ART Sample Site Art Line pH 7.40 Bicarbonate Actual 23.8 Total CO2 25 Base Excess -1 O2 Saturation 99 O2 % 60 ABG pCO2 38.4 ABG pO2 130 H VBG pH VBG pO2 VBG HCO3 VBG Total CO2 VBG O2 Sat (Calc) VBG Base Excess POC Mix VBG pCO2 Pt Tmp Respiration Rate 14 O2 Delivery Device Adult Vent Vent Mode AC Tidal Volume 450 POC PEEP 5 Sodium Potassium Chloride Carbon Dioxide Anion Gap BUN Creatinine Estim Creat Clear Calc Est GFR (MDRD) Af Amer Est GFR (MDRD) Non-Af BUN/Creatinine Ratio Glucose Hemoglobin A1c Calcium Magnesium Total Bilirubin AST ALT Alkaline Phosphatase Total Creatine Kinase Troponin I Total Protein Albumin Globulin Albumin/Globulin Ratio Triglycerides Cholesterol LDL Cholesterol VLDL Cholesterol HDL Cholesterol Procalcitonin Urine Color Urine Clarity Urine pH Ur Specific [place] Urine Protein Urine Glucose (UA) Urine Ketones Urine Occult Blood Urine Nitrite Urine Bilirubin Urine Urobilinogen Ur Leukocyte Esterase Urine RBC Urine WBC Ur Squamous Epith Cells Urine Bacteria Urine Mucus COVID-19 (BERENICE) POC Glucose Blood Type Antibody Screen 02/10/20 02/10/20 02/10/20 20:22 21:00 21:05 WBC RBC Hgb 12.3 Hct 39.4 MCV MCH MCHC RDW Std Deviation RDW Coeff of Nehemiah Plt Count MPV Immature Gran % (Auto) Neut % (Auto) Lymph % (Auto) Castro % (Auto) Eos % (Auto) Baso % (Auto) Absolute Neuts (auto) Absolute Lymphs (auto) Nucleated RBC % Differential Comment Diff Path Review PT INR APTT Activated Clotting Time Specimen Type Sample Site pH Bicarbonate Actual Total CO2 Base Excess O2 Saturation O2 % ABG pCO2 ABG pO2 VBG pH VBG pO2 VBG HCO3 VBG Total CO2 VBG O2 Sat (Calc) VBG Base Excess POC Mix VBG pCO2 Pt Tmp Respiration Rate O2 Delivery Device Vent Mode Tidal Volume POC PEEP Sodium Potassium Chloride Carbon Dioxide Anion Gap BUN Creatinine Estim Creat Clear Calc Est GFR (MDRD) Af Amer Est GFR (MDRD) Non-Af BUN/Creatinine Ratio Glucose Hemoglobin A1c Calcium Magnesium Total Bilirubin AST ALT Alkaline Phosphatase Total Creatine Kinase Troponin I Total Protein Albumin Globulin Albumin/Globulin Ratio Triglycerides Cholesterol LDL Cholesterol VLDL Cholesterol HDL Cholesterol Procalcitonin Urine Color Urine Clarity Urine pH Ur Specific [place] Urine Protein Urine Glucose (UA) Urine Ketones Urine Occult Blood Urine Nitrite Urine Bilirubin Urine Urobilinogen Ur Leukocyte Esterase Urine RBC Urine WBC Ur Squamous Epith Cells Urine Bacteria Urine Mucus COVID-19 (BERENICE) POC Glucose 102 Blood Type A POSITIVE Antibody Screen NEGATIVE 02/10/20 02/11/20 02/11/20 22:45 02:55 03:25 WBC 17.9 H RBC 3.81 L Hgb 11.9 L Hct 37.2 MCV 97.6 MCH 31.2 MCHC 32.0 RDW Std Deviation 48.5 H RDW Coeff of Nehemiah 13.6 Plt Count 262 MPV 9.8 Immature Gran % (Auto) 0.700 Neut % (Auto) 60.2 Lymph % (Auto) 27.1 Castro % (Auto) 8.4 Eos % (Auto) 3.0 Baso % (Auto) 0.6 Absolute Neuts (auto) 10.8 H Absolute Lymphs (auto) 4.84 H Nucleated RBC % 0 Differential Comment Diff Path Review Reviewed PT INR APTT Activated Clotting Time Specimen Type Sample Site pH Bicarbonate Actual Total CO2 Base Excess O2 Saturation O2 % ABG pCO2 ABG pO2 VBG pH VBG pO2 VBG HCO3 VBG Total CO2 VBG O2 Sat (Calc) VBG Base Excess POC Mix VBG pCO2 Pt Tmp Respiration Rate O2 Delivery Device Vent Mode Tidal Volume POC PEEP Sodium Potassium Chloride Carbon Dioxide Anion Gap BUN Creatinine Estim Creat Clear Calc Est GFR (MDRD) Af Amer Est GFR (MDRD) Non-Af BUN/Creatinine Ratio Glucose Hemoglobin A1c Calcium Magnesium Total Bilirubin AST ALT Alkaline Phosphatase Total Creatine Kinase Troponin I 180.000 H* Total Protein Albumin Globulin Albumin/Globulin Ratio Triglycerides Cholesterol LDL Cholesterol VLDL Cholesterol HDL Cholesterol Procalcitonin Urine Color Yellow Urine Clarity Clear Urine pH 5.0 Ur Specific [place] 1.020 Urine Protein 15 H Urine Glucose (UA) Normal Urine Ketones Negative Urine Occult Blood 150 H Urine Nitrite Negative Urine Bilirubin Negative Urine Urobilinogen Normal Ur Leukocyte Esterase Negative Urine RBC 10-25 SEEN Urine WBC 0 SEEN Ur Squamous Epith Cells 0 SEEN Urine Bacteria 0 SEEN Urine Mucus 0 SEEN COVID-19 (BERENICE) POC Glucose Blood Type Antibody Screen 02/11/20 02/11/20 02/12/20 03:25 08:45 03:20 WBC 18.4 H RBC 3.40 L Hgb 10.6 L Hct 32.5 L MCV 95.6 MCH 31.2 MCHC 32.6 RDW Std Deviation 46.5 H RDW Coeff of Nehemiah 13.2 Plt Count 199 MPV 9.8 Immature Gran % (Auto) 0.500 Neut % (Auto) 91.8 H Lymph % (Auto) 4.2 L Castro % (Auto) 3.3 Eos % (Auto) 0.0 Baso % (Auto) 0.2 Absolute Neuts (auto) 16.9 H Absolute Lymphs (auto) 0.78 L Nucleated RBC % 0 Differential Comment Diff Path Review PT INR APTT Activated Clotting Time Specimen Type Sample Site pH Bicarbonate Actual Total CO2 Base Excess O2 Saturation O2 % ABG pCO2 ABG pO2 VBG pH VBG pO2 VBG HCO3 VBG Total CO2 VBG O2 Sat (Calc) VBG Base Excess POC Mix VBG pCO2 Pt Tmp Respiration Rate O2 Delivery Device Vent Mode Tidal Volume POC PEEP Sodium 142 Potassium 4.0 Chloride 110 H Carbon Dioxide 26.0 Anion Gap 6 BUN 13 Creatinine 0.97 Estim Creat Clear Calc 54.13 Est GFR (MDRD) Af Amer 74 Est GFR (MDRD) Non-Af 61 BUN/Creatinine Ratio 13.4 Glucose 124 H Hemoglobin A1c Calcium 6.8 L Magnesium Total Bilirubin 0.60 AST 336 H ALT 113 H Alkaline Phosphatase 58 Total Creatine Kinase Troponin I Total Protein 5.4 L Albumin 2.4 L Globulin 3.0 Albumin/Globulin Ratio 0.8 L Triglycerides 185 Cholesterol 151 LDL Cholesterol 80 VLDL Cholesterol 37 HDL Cholesterol 34 L Procalcitonin 0.34 H Urine Color Urine Clarity Urine pH Ur Specific [place] Urine Protein Urine Glucose (UA) Urine Ketones Urine Occult Blood Urine Nitrite Urine Bilirubin Urine Urobilinogen Ur Leukocyte Esterase Urine RBC Urine WBC Ur Squamous Epith Cells Urine Bacteria Urine Mucus COVID-19 (BERENICE) POC Glucose Blood Type Antibody Screen 02/12/20 03:20 WBC RBC Hgb Hct MCV MCH MCHC RDW Std Deviation RDW Coeff of Nehemiah Plt Count MPV Immature Gran % (Auto) Neut % (Auto) Lymph % (Auto) Castro % (Auto) Eos % (Auto) Baso % (Auto) Absolute Neuts (auto) Absolute Lymphs (auto) Nucleated RBC % Differential Comment Diff Path Review PT INR APTT Activated Clotting Time Specimen Type Sample Site pH Bicarbonate Actual Total CO2 Base Excess O2 Saturation O2 % ABG pCO2 ABG pO2 VBG pH VBG pO2 VBG HCO3 VBG Total CO2 VBG O2 Sat (Calc) VBG Base Excess POC Mix VBG pCO2 Pt Tmp Respiration Rate O2 Delivery Device Vent Mode Tidal Volume POC PEEP Sodium 139 Potassium 3.6 Chloride 109 H Carbon Dioxide 25.0 Anion Gap 5 BUN 8 Creatinine 0.64 Estim Creat Clear Calc 82.04 Est GFR (MDRD) Af Amer 119 Est GFR (MDRD) Non-Af 98 BUN/Creatinine Ratio 12.4 Glucose 159 H Hemoglobin A1c Calcium 7.1 L Magnesium Total Bilirubin AST ALT Alkaline Phosphatase Total Creatine Kinase Troponin I Total Protein Albumin Globulin Albumin/Globulin Ratio Triglycerides Cholesterol LDL Cholesterol VLDL Cholesterol HDL Cholesterol Procalcitonin Urine Color Urine Clarity Urine pH Ur Specific [place] Urine Protein Urine Glucose (UA) Urine Ketones Urine Occult Blood Urine Nitrite Urine Bilirubin Urine Urobilinogen Ur Leukocyte Esterase Urine RBC Urine WBC Ur Squamous Epith Cells Urine Bacteria Urine Mucus COVID-19 (BERENICE) POC Glucose Blood Type Antibody Screen Microbiology 02/10/20 05:45 Sputum, Induced/Lukens Gram Stain - Final Clinical Impression(s) from Imaging Studies Chest X-Ray 02/10/20 14:44 IMPRESSION: 1. Expected appearance of endotracheal and gastric tubes. 2. No acute cardiorespiratory disease. 3. Coronary bypass grafting. Electronically Signed: Ronny Hanson, at 16:18 EST Tel , Service support , Chest X-Ray 02/10/20 19:50 IMPRESSION: IABP with tip projecting over the aortic arch. Otherwise stable. Electronically Signed: Brandon Hernandez MD ([place]) at 20:13 EST , Service support , KUB X-Ray 02/10/20 19:53 IMPRESSION: Right groin IABP. Enteric/gastric tube. Electronically Signed: Brandon Hernandez MD ([place]) at 20:46 EST , Service support , Chest X-Ray 02/11/20 05:55 IMPRESSION: ET tube at the tip 4.2 cm proximal to the alina NG tube similar Left basilar atelectasis at 0617 Reported and signed by: Jami Seay DO Electronically Signed: Jami Seay DO at 6:16 EST Tel , Service support , Medical Necessity - Tobacco Use Smoking Status: Unknown if ever smoked Tobacco Use: Cigarettes Assessment/Plan All Active Problems (Last Updated 07/01/17 @ 12:07 by Lisa Ferreira) STEMI (ST elevation myocardial infarction) (Acute) Cardiac arrest (Acute) Torsades de pointes (Acute) Ventricular tachycardia (Acute) NSTEMI (non-ST elevated myocardial infarction) (Acute) Cardiogenic shock (Acute) RECOMMENDATIONS: 1. Continue stress dose steroids and to wean from vasopressor support. 2. Once Levophed has been discontinued, the patient's baseline hydrocortisone at 20 mg in the morning and 10 mg at night can be restarted. 3. Continue scheduled bronchodilator therapy. 4. Start empiric antimicrobials, given gram negatives noted on sputum Gram stain. 5. Continue PPI therapy. 6. Discontinue supplemental IV fluids. 7. Continue to wean supplemental oxygen to maintain saturations at or above 90%. IMPRESSIONS: 1. Acute on chronic hypoxemic respiratory failure status post cardiac arrest/STEMI/cardiogenic shock The patient presented to the hospital in full cardiac arrest, necessitating revascularization. The patient was intubated as a consequence of her acute presentation. She does have an apparent 2 L/min baseline oxygen requirement along with COPD of unknown severity. The patient was able to be successfully extubated on the morning of February 10. She has remained on vasopressor support, but does apparently have a history of adrenal insufficiency, for which she was started on stress dose steroids. In addition, the patient did have gram-negative rods isolated on Gram stain. Therefore antimicrobials were initiated. Supplemental IV fluids can be discontinued from my perspective. Supplemental oxygen can be weaned to maintain saturations at or above 90%. Encourage incentive spirometer use and mobilize patient as tolerated. 2. History of COPD of unknown severity/chronic tobacco dependency Continue scheduled bronchodilator therapy. Wean supplemental oxygen as tolerated. Nicotine replacement therapy can be offered to the patient while admitted to the hospital. 3. History of coronary artery disease status post CABG Continue current medical management per cardiology recommendations. 4. History of adrenal insufficiency The patient is apparently on baseline hydrocortisone therapy, dose twice daily. Given her ongoing vasopressor requirement, the patient was started on stress dose steroids. Once weaned from Levophed, the patient's home hydrocortisone can be restarted, 20 mg in the morning and 10 mg at night. 5. Hypertension/hyperlipidemia/anxiety Complicates care, management, recovery and prognosis. Continue to hold antihypertensives given tenuous hemodynamics. TIME: 33 minutes of critical care time, independent of procedures, was spent addressing the patient's acute on chronic hypoxemic respiratory failure, status post cardiac arrest, ST segment elevation PA, cardiogenic shock, COPD, adrenal insufficiency, review of all data and collaboration with the care team. ([id number]) [id number] Critical care first hour
[2020-02-12] MEDS: Ipratropium/Albuterol Sulfate 3 ML AMPUL.NEB INHALATION ×3 (07:03→19:15)
[2020-02-12] MEDS: 0.9% Saline Lock 10 ML Syringe IV ×2 (08:26→21:22)
[2020-02-12] MEDS: Acetaminophen 325 MG Tablet 650 MG PO ×3 (08:26→21:23)
[2020-02-12] MEDS: Aspirin 81 MG TAB.CHEW PO (08:26)
--- NOTE | 2020-02-12 08:29 | CRPHASE1 ---
Patient Communication Former Patient:: Phase II PHII Cardiac Rehab Discussed with Patient:: Yes Guide to Cardiac Rehab Given to Patient:: Yes Cardiac Rehab Facility Choice List Given to Patient:: Yes Choice Program [facility] CR PHII:: Communication Given to CR - Pt initially refuses to participate on CR. Stated that when she participated before it did not help her. [employer] Superintendent:: Nicolette Bullock Phase II Cardiac Rehab:: Yes Sessions:: 36 sessions - 3 days/wk, 12 weeks Risk Factors/Lifestyle Smoking Status: Current every day smoker Second-Hand Smoke:: Yes Hx Hypertension: Yes Hx Diabetes Mellitus Type 1: No Hx Diabetes Mellitus Type 2: No Hx Metabolic Disorders: No Hx Dyslipidemia: Yes Hx Obesity: No Post-Menopausal: Yes Stress: Long-standing ETOH: No Caffeine: No Substance Abuse: No Risk Factor for Sedentary Lifestyle: Moderate Risk Family History: Family History (Last Updated 07/01/17 @ 12:08 by Lisa Ferreira) Mother Heart disease Hypertension Past Cardiac Illness: LV Dysfunction, CHF, Ejection Fraction, Coronary Artery Disease, Myocardial Infarction, Previous PCI w/Stent, Coronary Artery Bypass Graft Laboratory Values: Cardiac Rehab Phase I Labs Hemoglobin A1c 5.8 % (3.8-5.6) H 02/10/20 15:09 Triglycerides 185 mg/dL (-199) 02/11/20 03:25 Cholesterol 151 mg/dL (200) 02/11/20 03:25 LDL Cholesterol 80 mg/dL (0-130) 02/11/20 03:25 HDL Cholesterol 34 mg/dL (40-) L 02/11/20 03:25 Phase I Education Given On:: [place] [employer], Nutrition, Antiplatelet medication, CHF Issues Affecting Care:: None Knowledge of Condition:: Yes Learning Preferences: Verbal, Written Cardiac Rehabilitation Info Cardiac Rehabilitation Program Information: Cardiac Rehabilitation is important for patients like you who are recovering from a heart problem. Cardiac rehabilitation programs are recognized as integral to the continued care of the patient with coronary heart disease. The cardiac rehabilitation program is designed to optimize a patient's physical, psychological, and social functioning. Health hospice care transitions coordinator work in cardiac rehabilitation programs and assist you with getting the treatments you need to get stronger and healthier - like exercise, healthy eating habits, and medications. Cardiac rehabilitation has been show to help people with heart problems live longer and have better life enjoyment than people who do not go to cardiac rehabilitation. Please contact the Cardiac Rehabilitation Program at [facility] at in two weeks if you have not heard from them.
--- NOTE | 2020-02-12 08:33 | CRPH1.INST_ITS ---
General Education CAD and cardiac anatomy and function:: Patient communicates acknowledgment, Needs reinforcement Explanation of diagnoses and procedures:: Patient communicates acknowledgment, Needs reinforcement Sign/Symptoms of SC:: Patient communicates acknowledgment, Needs reinforcement Antiplatelet therapy: Patient communicates acknowledgment, Needs reinforcement Proper use of NTG-SL: Patient communicates acknowledgment, Needs reinforcement Emergency procedures and activation of EMS: Patient communicates acknowledgment, Needs reinforcement Compliance of all prescribed medications: Patient communicates acknowledgment, Needs reinforcement Smoking Patient Nicotine/Smoking Risk Factors Are:: Cigarettes Recommendations Include:: Smoking cessation strategies/Smoking packet, Second- hand smoke recommendation, Participation in a smoking cessation program Nicotine/Smoking Response Code:: Patient communicates acknowledgment, Needs reinforcement Dyslipidemia Patient Dyslipidemia Risk Factors Are:: Total Cholesterol, Triglycerides, HDL, LDL Recommendations Include:: Lipid profile provided, Reviewed NCEP/ATP guidelines, Therapeutic Lifestyle Change dietary guidelines Dyslipidemia Response Code:: Patient communicates acknowledgment, Needs reinforcement Overweight/Obesity Patient Overweight/Obesity Risk Factors Are:: BMI Normal [24-29 & > 65 years old] Recommendations Include:: Weight loss of 5-10%, Reduced calorie diet, Exercise 5-7 times/week Overweight/Obesity:: Patient communicates acknowledgment, Needs reinforcement Hypertension Recommendations Include:: Maintain BP <130/85, DASH dietary guidelines, Decrease/maintain normal body weight, Moderation of ETOH Hypertension:: Patient communicates acknowledgment, Needs reinforcement Heart Disease Patient Heart Disease Risk Factors Are:: Family history of heart disease < 65 years old, Previous cardiac event Recommendations Include:: Educated family members of their risk, Educated family members of importance of prevention of heart disease Heart Disease Response Code:: Patient communicates acknowledgment, Needs reinforcement Sedentary Patient Sedentary Risk Factors Are:: Lack of regular exercise Recommendations Include:: Aerobic exercise 5-7 times/week for 20-30 minutes continuously, Benefits of regular exercise, Discussed home walking program, Monitored Outpatient Cardiac Rehab Sedentary Response Code:: Patient communicates acknowledgment, Needs reinforcement Stress Recommendations Include:: Identification of stressors, and assessment of coping skills, Stress management techniques Stress Response Code:: Patient communicates acknowledgment, Needs reinforcement
[2020-02-12] MEDS: Metoprolol(XL)Succ 25 MG Tablet 12.5 MG PO (09:38)
[2020-02-12] MEDS: TICAGRELOR 90 MG TABLET PO ×2 (09:39→21:24)
--- NOTE | 2020-02-12 14:34 | PCM.PN.HOSP ---
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 Feeling overall better, but still with intense chest pain (from CPR). Vitals/I&O's: Vital Signs Temp Pulse Resp BP Pulse Ox 36.7 C 88 20 H 106/55 L 92 02/12/20 11:49 02/12/20 14:00 02/12/20 14:00 02/12/20 14:00 02/12/20 14:00 Oxygen Flow Rate (L/min) 5 Oxygen Delivery Method Nasal Cannula Weight: 62.2 kg Body Mass Index (BMI) 21.9 Finger Stick Blood Glucose 61 Intake and Output for Last 24 Hours 02/10/20 02/11/20 02/12/20 23:59 23:59 23:59 Intake Total 2363.13 / 2393.49 3892.73 / 3920.23 1514.61 / 1514.61 Output Total 325 / 325 1265 / 1265 600 / 600 Balance 2038.13 / 2068.49 2627.73 / 2655.23 914.61 / 914.61 General: Alert, No apparent distress HEENT: Atraumatic, Normocephalic Neck: No Nodes, Thyroid Normal Size and Texture Lungs: Clear to auscultation, Normal air movement, No rhonchi, No wheeze Cardiovascular: Regular rate, Regular Rhythm, Normal S1, Normal S2, No murmurs Abdomen: Bowel Sounds Present, Soft, Non Tender, Non-Distended, No Hepato-splenomegaly Extremities: No edema, No Calf Tenderness Psych/Mental Status: Normal Affect, Appropriate Microbiology Past 72 Hours 02/11/20 02:55 Urine Catheter - [place] Urine Culture - Preliminary Culture exhibits no growth. 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 Laboratory Results 02/12/20 03:20: WBC 18.4 H, RBC 3.40 L, Hgb 10.6 L, Hct 32.5 L, MCV 95.6, MCH 31.2, MCHC 32.6, RDW Std Deviation 46.5 H, RDW Coeff of Nehemiah 13.2, Plt Count 199, MPV 9.8, Immature Gran % (Auto) 0.500, Neut % (Auto) 91.8 H, Lymph % (Auto) 4.2 L, Hill % (Auto) 3.3, Eos % (Auto) 0.0, Baso % (Auto) 0.2, Absolute Neuts (auto) 16.9 H, Absolute Lymphs (auto) 0.78 L, Nucleated RBC % 0 02/12/20 03:20: Sodium 139, Potassium 3.6, Chloride 109 H, Carbon Dioxide 25.0, Anion Gap 5, BUN 8, Creatinine 0.64, Estim Creat Clear Calc 82.04, Est GFR (MDRD) Af Amer 119, Est GFR (MDRD) Non-Af 98, BUN/Creatinine Ratio 12.4, Glucose 159 H, Calcium 7.1 L Current Medications Acetaminophen (Acetaminophen 325 Mg Tablet) 650 mg PO Q4H PRN PRN PRN Reason: Pain 1-10 or Fever Last Admin: 02/12/20 08:26 Dose: 650 mg Documented by: Al Hydroxide/Mg Hydroxide (Mag Hydrox/Al Hydrox/Simeth 30 Ml Udc) 30 ml PO Q6H PRN PRN PRN Reason: Gastric Burning Albuterol Sulfate (Albuterol 2.5 Mg/3 Ml Vial.Neb.) 2.5 mg INHALATION Q2H PRN PRN PRN Reason: Dyspnea, wheezing Albuterol/Ipratropium (Ipratropium/Albuterol Sulfate 3 Ml Ampul.Neb) 3 ml INHALATION Q6HWA.RT [facility] Last Admin: 02/12/20 13:22 Dose: 3 ml Documented by: Aspirin (Aspirin 81 Mg Tab.Chew) 81 mg PO DAILY@0800 [facility] Last Admin: 02/12/20 08:26 Dose: 81 mg Documented by: Atorvastatin Calcium (Atorvastatin Calcium 10 Mg Tablet) 10 mg PO QHS [facility] Last Admin: 02/11/20 21:05 Dose: 10 mg Documented by: Enoxaparin Sodium (Enoxaparin 40 Mg/0.4 Ml Syringe) 40 mg SC DAILY@0600 [facility] Last Admin: 02/12/20 06:25 Dose: 40 mg Documented by: Hydralazine HCl (Hydralazine 20 Mg/Ml Vial) 10 mg IV Q4H PRN PRN PRN Reason: SBP > 160 Hydrocortisone Sodium Succinate (Hydrocortisone Sod Succinate 100 Mg/2 Ml Vial) 50 mg IV Q6 [facility] Last Admin: 02/12/20 12:20 Dose: 50 mg Documented by: Pantoprazole Sodium 40 mg/ (Sodium Chloride) 110 mls @ 330 mls/hr IV Q12 [facility] Last Infusion: 02/12/20 09:58 Dose: Infused Documented by: Norepinephrine Bitartrate 8 mg (/ Sodium Chloride) 250 mls @ 9.375 mls/hr CONT INF .[id number] [facility]; Protocol Last Titration: 02/12/20 14:00 Dose: 0 mcg/min, 0 mls/hr Documented by: Sodium Chloride () 250 mls @ 15 mls/hr IV .[id number] PRN PRN Reason: Saline Flush Sodium Chloride () 250 mls @ 15 mls/hr IV .[id number] PRN PRN Reason: Additional IVPB Infusion Piperacillin Sod/Tazobactam (Sod 3.375 gm/ Sodium Chloride) 50 mls @ 12.5 mls/hr IV Q8 [facility] Last Admin: 02/12/20 12:20 Dose: 12.5 mls/hr Documented by: Lorazepam (Lorazepam 0.5 Mg Tablet) 0.5 mg PO QHS [facility] Last Admin: 02/11/20 21:05 Dose: 0.5 mg Documented by: Magnesium Hydroxide (Magnesium Hydroxide 30 Ml Udc) 30 ml PO DAILY PRN PRN PRN Reason: Constipation Metoprolol Succinate (Metoprolol(Xl)Succ 25 Mg Tablet) 12.5 mg PO DAILY [facility] Last Admin: 02/12/20 09:38 Dose: 12.5 mg Documented by: Nitroglycerin (Nitroglycerin (Inpatient Use) 0.4 Mg Tab.Subl) 0.4 mg SUBLINGUAL Q5M PRN PRN Reason: CARDIAC/CHEST PAIN Ondansetron HCl (Ondansetron 4 Mg/2 Ml Vial) 4 mg IV Q8H PRN PRN PRN Reason: NAUSEA/VOMITING Last Admin: 02/11/20 10:10 Dose: 4 mg Documented by: Oxycodone HCl (Oxycodone 5 Mg Tablet) 5 mg PO Q4H PRN PRN PRN Reason: Pain Score 6-10 Last Admin: 02/12/20 09:38 Dose: 5 mg Documented by: Prochlorperazine Edisylate (Prochlorperazine 10 Mg/2 Ml Vial) 5 mg IV Q4H PRN PRN PRN Reason: Breakthrough Nausea/Vomiting Psyllium Hydrophilic Mucilloid (Psyllium 1 Packet) 1 packet PO DAILY PRN PRN PRN Reason: Constipation Senna/Docusate Sodium (Senna/Docusate Sodium 1 Tablet) 2 tablet PO BID PRN PRN Reason: Constipation Sodium Chloride (Sodium Cl For Inhalation 15 Ml Vial.Neb.) 5 ml INHALATION Q5M PRN PRN Reason: Suctioning Sodium Chloride (0.9% Saline Lock 10 Ml Syringe) 10 - 40 ml IV UD PRN PRN Reason: Multilumen/Warren Flush Last Admin: 02/12/20 08:26 Dose: 40 ml Documented by: Sodium Chloride (0.9 % Nacl (Sterile) Posiflush 10 Ml) 10 - 40 ml IV UD PRN PRN Reason: Port access or dressing change Sodium Chloride (0.9% Saline Lock 10 Ml Syringe) 10 - 40 ml IV UD PRN PRN Reason: SALINE FLUSH Throat Lozenges (Benzocaine/Menthol 1 Lozenge) 1 lozenge MUCOUS MEM Q2H PRN PRN PRN Reason: SORE THROAT Ticagrelor (Ticagrelor 90 Mg Tablet) 90 mg PO BID [facility] Last Admin: 02/12/20 09:39 Dose: 90 mg Documented by: STROKE Vital Signs/Narrative: Vital Signs Temp Pulse Resp BP Pulse Ox 02/12/20 14:00 88 20 H 106/55 L 92 02/12/20 13:00 84 16 105/55 L 94 02/12/20 11:49 36.7 C 76 15 99/57 L 94 02/12/20 11:07 82 02/12/20 11:00 79 13 92/52 L 96 Medical Necessity - Tobacco Use Smoking Status: Current every day smoker Tobacco Use: Cigarettes Assessment/Plan All Active Problems (Last Updated 07/01/17 @ 12:07 by Lisa Ferreira) STEMI (ST elevation myocardial infarction) (Acute) Cardiac arrest (Acute) Torsades de pointes (Acute) Ventricular tachycardia (Acute) NSTEMI (non-ST elevated myocardial infarction) (Acute) Cardiogenic shock (Acute) 1. NSTEMI STEMI ruled out peak troponin 180 s/p PCI to SVG to OM no need to TF to tertiary facility at this time ASA, ticagrelor, atorvastatin (low dose given prior intolerance) cardiology following 2. Cardiogenic shock 03/18 above and arrest norepinephrine turned off 02/11 solu-cortef 3. post-cardiac arrest torsade de pointes 4. Acute on chronic hypoxic respiratory failure extubated 02/10 5. Adrenal insufficiency on solucortef 50 IV Q6h, if remains stable off pressors, can resume regular home dosing. 6. VTE prophylaxis: LMWH Inpatient E&M: [id number] [facility] Hosp L2
--- NOTE | 2020-02-12 19:29 | NURSING ---
Pt educated on respiratory toileting, instructed on different breathing techniques to increase lung capacity and reduce oxygen requirement. Pt able to give return demonstrations, supports sternum and proceeds to cough up sputum. Pt became increasingly anxious regarding amount of sputum and difficulty associated w/brining it up. She panted and began to sweat, able to redirect and calm her w/emotional support. Pt encouraged to keep doing these exercises despite the pain, in order to get better.
[2020-02-12] MEDS: LORazepam 0.5 MG Tablet PO (21:23)
[2020-02-12] MEDS: Atorvastatin Calcium 10 MG Tablet PO (21:24)
[2020-02-13] VITALS (23 sets, daily range): BP systolic 93–145; BP diastolic 47–85; PULSE 78–99; RESP 14–28; TEMP 36.3–36.9; O2SAT 88–96
[2020-02-13] MEDS: Acetaminophen 325 MG Tablet 650 MG PO ×4 (01:30→21:28)
[2020-02-13] MEDS: oxyCODONE 5 MG Tablet PO ×4 (01:30→21:27)
--- NOTE | 2020-02-13 02:16 | NURSING ---
Pt noted to be coughing, oxygen sat dropped to 77%, pt denied feeling it that low. Pt encouraged to cough deeper and stronger, ice pack and PRN medications given in order to facilitate; pt repetitively states I'm doing it, I'm trying. Explained to pt that she is only coughing just enough to loosen the sputum and cause major occlusions to airway which is why her oxygen saturation is dropping. Pt requests RT come and beat on her back like last night. This RN attempted to percuss pt's back, unable to satisfy pt. RT called and notified of pt's request. Pt's oxygen level dropped as low as 76% while coughing; has recovered to 90%. Pt very adamantly states now that she does not want to be reintubated, no ventilator support and no more CPR if something else should happen. I'm done with all that business. Educated pt that this request needs to be given to a physician now and every time she's admitted to the hospital. Pt also informed that her family needs to made aware of her wishes as well, so they can communicate when she is unable. Pt acknowledges information.
[2020-02-13 03:49] LABS: Absolute Lymphocyte Count 0.62 X10^3/uL (0.83-4.51); Absolute Neutrophil Count 13.4 X10^3/uL (2.0-7.7); Basophil# 0.02 X10^3/uL; Basophil% 0.1 % (0-1); Hematocrit 29.9 % (37-47); Hemoglobin 9.7 g/dL (12.0-15.0); Lymphocyte # 0.62 X10^3/ul (4.0); Lymphocyte % 4.2 % (19-41); Mean Corp Hgb Conc 32.4 g/dL (32-36); Mean Corpuscular Hgb 31.2 pg (27.0-32.0); Mean Corpuscular Volume 96.1 fL (81-99); Monocyte# 0.76 X10^3/uL; Monocyte% 5.1 % (0-10); NRBC Flagged by Analyzer 0 % (0-5); Neutrophil # 13.35 X10^3/uL (2.7-7.7); Neutrophil % 89.7 % (47-70); Platelet Count 148 K/mm3 (150-450); RBC Distribution Width CV 13.6 % (11.6-14.6); RBC Distribution Width SD 48.1 fl (35.1-43.9); Red Blood Count 3.11 M/mm3 (4.2-5.4); White Blood Count 14.9 K/mm3 (4.4-11.0)
[2020-02-13 04:02] LABS: ALB/GLOB Ratio 0.6 RATIO (0.9-2.4); AST(SGOT) 75 U/L (15-37); Alanine Aminotransfer ALT/SGPT 60 U/L (13-56); Albumin, Serum 2.3 g/dL (3.2-5.0); Alkaline Phosphatase 56 U/L (45-117); Anion Gap 4 (5-15); BUN 14 mg/dL (7-18); BUN/Creat Ratio 18.7 RATIO (10-20); Calcium,Total 7.4 mg/dL (8.5-10.1); Chloride 111 mmol/L (98-107); Creatinine, Serum 0.75 mg/dL (0.55-1.02); EST Glomerular Filtration Rate 83 mL/min (>60); Est Glom Filt Rate - Afr Amer 100 mL/min (>60); Estimated Creatinine Clearance 70.01 ml/min; Globulin 3.7 g/dL (2.2-4.2); Glucose 113 mg/dL (74-106); Potassium 3.8 mmol/L (3.5-5.1); Sodium Level 140 mmol/L (136-145)
[2020-02-13] MEDS: 0.9% Saline Lock 10 ML Syringe IV ×3 (04:59→08:10)
[2020-02-13] MEDS: Hydrocortisone Sod Succinate 100 MG/2 ML Vial 50 MG IV (05:10)
[2020-02-13] MEDS: Enoxaparin 40 MG/0.4 ML Syringe SC (05:12)
--- NOTE | 2020-02-13 06:23 | PN_ITS ---
Patient Problems: Active and Suspected Problems (Last Updated 07/01/17 @ 12:07 by Lisa Ferreira) STEMI (ST elevation myocardial infarction) (Acute) Cardiac arrest (Acute) Torsades de pointes (Acute) Ventricular tachycardia (Acute) NSTEMI (non-ST elevated myocardial infarction) (Acute) Cardiogenic shock (Acute) Subjective: The patient was seen and examined at the bedside this morning. Events from the last 24 hours have been reviewed. The patient is currently afebrile, hemodynamically stable and maintaining appropriate oxygen saturations on 6 L/min via nasal cannula. The patient was able to be weaned successfully off of Levophed yesterday. She remains hemodynamically stable on stress dose steroids. The patient continues to have a great deal of chest pain from CPR and is having difficulty with deep coughing and incentive spirometer use. She was also started on antimicrobials yesterday over concerns for aspiration pneumonia, with gram-negative rods isolated in her sputum Gram stain. The patient does have a productive cough. Objective: The patient's most recent lab work, culture data and imaging studies have all been personally reviewed. Surface echocardiogram revealed normal LV size with an ejection fraction of 40% and stage I diastolic dysfunction. Coronavirus PCR was negative on February 09. 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 Blood cultures have shown no growth to date. - Physical Exam Vitals/I&O's: Vital Signs Temp Pulse Resp BP Pulse Ox 97.3 F L 92 24 H 130/69 H 91 02/13/20 04:00 02/13/20 06:00 02/13/20 06:00 02/13/20 06:00 02/13/20 06:00 Oxygen Flow Rate (L/min) 6 Oxygen Delivery Method Nasal Cannula Weight: 143 lb 4.807 oz Body Mass Index (BMI) 21.9 Finger Stick Blood Glucose 61 Intake and Output for Last 24 Hours 02/11/20 02/12/20 02/13/20 23:59 23:59 23:59 Intake Total 3892.73 / 3920.23 2429.61 / 2429.61 150 / 150 Output Total 1265 / 1265 1000 / 1000 0 / 0 Balance 2627.73 / 2655.23 1429.61 / 1429.61 150 / 150 General: Alert, Cooperative, No apparent distress, - - Sitting in bedside recliner. HEENT: Atraumatic, Normocephalic Oral: No Gingival or Mucosal Lesions/ Ulcerations Neck: Supple, No Nodes, Trachea Midline Lungs: Diminished, - - Scant rhonchi with coughing Cardiovascular: Regular rate, Regular Rhythm Abdomen: Bowel Sounds Present, Soft, Non Tender Extremities: No clubbing, No cyanosis, No edema Skin: No breakdown Lymphatic: No Cervical, Supraclavicular, or Inguinal Adenopathy Neurological: Cranial nerves II-XII grossly intact, Neuro grossly intact Psych/Mental Status: Normal Affect, Appropriate Labs (Last 48 Hours) 02/11/20 02/11/20 02/12/20 03:25 08:45 03:20 WBC 18.4 H RBC 3.40 L Hgb 10.6 L Hct 32.5 L MCV 95.6 MCH 31.2 MCHC 32.6 RDW Std Deviation 46.5 H RDW Coeff of Nehemiah 13.2 Plt Count 199 MPV 9.8 Immature Gran % (Auto) 0.500 Neut % (Auto) 91.8 H Lymph % (Auto) 4.2 L Crowley % (Auto) 3.3 Eos % (Auto) 0.0 Baso % (Auto) 0.2 Absolute Neuts (auto) 16.9 H Absolute Lymphs (auto) 0.78 L Nucleated RBC % 0 [address] Review Reviewed Sodium Potassium Chloride Carbon Dioxide Anion Gap BUN Creatinine Estim Creat Clear Calc Est GFR (MDRD) Af Amer Est GFR (MDRD) Non-Af BUN/Creatinine Ratio Glucose Calcium Total Bilirubin AST ALT Alkaline Phosphatase Total Protein Albumin Globulin Albumin/Globulin Ratio Procalcitonin 0.34 H 02/12/20 02/13/20 02/13/20 03:20 03:40 03:40 WBC 14.9 H RBC 3.11 L Hgb 9.7 L Hct 29.9 L MCV 96.1 MCH 31.2 MCHC 32.4 RDW Std Deviation 48.1 H RDW Coeff of Nehemiah 13.6 Plt Count 148 L MPV 10.0 Immature Gran % (Auto) 0.900 Neut % (Auto) 89.7 H Lymph % (Auto) 4.2 L Crowley % (Auto) 5.1 Eos % (Auto) 0.0 Baso % (Auto) 0.1 Absolute Neuts (auto) 13.4 H Absolute Lymphs (auto) 0.62 L Nucleated RBC % 0 [address] Review Sodium 139 140 Potassium 3.6 3.8 Chloride 109 H 111 H Carbon Dioxide 25.0 25.0 Anion Gap 5 4 L BUN 8 14 Creatinine 0.64 0.75 Estim Creat Clear Calc 82.04 70.01 Est GFR (MDRD) Af Amer 119 100 Est GFR (MDRD) Non-Af 98 83 BUN/Creatinine Ratio 12.4 18.7 Glucose 159 H 113 H Calcium 7.1 L 7.4 L Total Bilirubin 0.70 AST 75 H ALT 60 H Alkaline Phosphatase 56 Total Protein 6.0 L Albumin 2.3 L Globulin 3.7 Albumin/Globulin Ratio 0.6 L Procalcitonin Microbiology 02/11/20 02:55 Urine Catheter - Michaud Urine Culture - Preliminary Culture exhibits no growth. 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 Expected appearance of endotracheal and gastric tubes. 2. No acute cardiorespiratory disease. 3. Coronary bypass grafting. Electronically Signed: Ronny Hanson, at 16:18 EST Tel , Service support , Chest X-Ray 02/10/20 19:50 IMPRESSION: IABP with tip projecting over the aortic arch. Otherwise stable. Electronically Signed: Brandon Hernandez MD (Brooks) at 20:13 EST , Service support , KUB X-Ray 02/10/20 19:53 IMPRESSION: Right groin IABP. Enteric/gastric tube. Electronically Signed: Brandon Hernandez MD (Brooks) at 20:46 EST , Service support , Chest X-Ray 02/11/20 05:55 IMPRESSION: ET tube at the tip 4.2 cm proximal to the alina NG tube similar Left basilar atelectasis at 0617 Reported and signed by: Jami Seay DO Electronically Signed: Jami Seay DO at 6:16 EST Tel , Service support , Current Medications Acetaminophen (Acetaminophen 325 Mg Tablet) 650 mg PO Q4H PRN PRN PRN Reason: Pain 1-10 or Fever Last Admin: 02/13/20 01:30 Dose: 650 mg Documented by: Al Hydroxide/Mg Hydroxide (Mag Hydrox/Al Hydrox/Simeth 30 Ml Udc) 30 ml PO Q6H PRN PRN PRN Reason: Gastric Burning Albuterol Sulfate (Albuterol 2.5 Mg/3 Ml Vial.Neb.) 2.5 mg INHALATION Q2H PRN PRN PRN Reason: Dyspnea, wheezing Albuterol/Ipratropium (Ipratropium/Albuterol Sulfate 3 Ml Ampul.Neb) 3 ml INHALATION Q6HWA.RT [facility] Last Admin: 02/12/20 19:15 Dose: 3 ml Documented by: Aspirin (Aspirin 81 Mg Tab.Chew) 81 mg PO DAILY@0800 [facility] Last Admin: 02/12/20 08:26 Dose: 81 mg Documented by: Atorvastatin Calcium (Atorvastatin Calcium 10 Mg Tablet) 10 mg PO QHS [facility] Last Admin: 02/12/20 21:24 Dose: 10 mg Documented by: Enoxaparin Sodium (Enoxaparin 40 Mg/0.4 Ml Syringe) 40 mg SC DAILY@0600 [facility] Last Admin: 02/13/20 05:12 Dose: 40 mg Documented by: Hydralazine HCl (Hydralazine 20 Mg/Ml Vial) 10 mg IV Q4H PRN PRN PRN Reason: SBP > 160 Hydrocortisone (Hydrocortisone 10 Mg Tablet) 20 mg PO DAILY [facility] Hydrocortisone (Hydrocortisone 10 Mg Tablet) 10 mg PO QHS [facility] Norepinephrine Bitartrate 8 mg (/ Sodium Chloride) 250 mls @ 9.375 mls/hr CONT INF .[id number] [facility]; Protocol Last Admin: 02/13/20 01:24 Dose: Not Given Documented by: Sodium Chloride () 250 mls @ 15 mls/hr IV .[id number] PRN PRN Reason: Saline Flush Sodium Chloride () 250 mls @ 15 mls/hr IV .[id number] PRN PRN Reason: Additional IVPB Infusion Piperacillin Sod/Tazobactam (Sod 3.375 gm/ Sodium Chloride) 50 mls @ 12.5 mls/hr IV Q8 [facility] Last Admin: 02/13/20 05:00 Dose: 12.5 mls/hr Documented by: Lorazepam (Lorazepam 0.5 Mg Tablet) 0.5 mg PO QHS [facility] Last Admin: 02/12/20 21:23 Dose: 0.5 mg Documented by: Magnesium Hydroxide (Magnesium Hydroxide 30 Ml Udc) 30 ml PO DAILY PRN PRN PRN Reason: Constipation Metoprolol Succinate (Metoprolol(Xl)Succ 25 Mg Tablet) 12.5 mg PO DAILY [facility] Last Admin: 02/12/20 09:38 Dose: 12.5 mg Documented by: Nitroglycerin (Nitroglycerin (Inpatient Use) 0.4 Mg Tab.Subl) 0.4 mg SUBLINGUAL Q5M PRN PRN Reason: CARDIAC/CHEST PAIN Ondansetron HCl (Ondansetron 4 Mg/2 Ml Vial) 4 mg IV Q8H PRN PRN PRN Reason: NAUSEA/VOMITING Last Admin: 02/11/20 10:10 Dose: 4 mg Documented by: Oxycodone HCl (Oxycodone 5 Mg Tablet) 5 mg PO Q4H PRN PRN PRN Reason: Pain Score 6-10 Last Admin: 02/13/20 01:30 Dose: 5 mg Documented by: Pantoprazole Sodium (Pantoprazole Sodium 40 Mg Tablet) 40 mg PO DAILY [facility] Prochlorperazine Edisylate (Prochlorperazine 10 Mg/2 Ml Vial) 5 mg IV Q4H PRN PRN PRN Reason: Breakthrough Nausea/Vomiting Psyllium Hydrophilic Mucilloid (Psyllium 1 Packet) 1 packet PO DAILY PRN PRN PRN Reason: Constipation Senna/Docusate Sodium (Senna/Docusate Sodium 1 Tablet) 2 tablet PO BID PRN PRN Reason: Constipation Sodium Chloride (Sodium Cl For Inhalation 15 Ml Vial.Neb.) 5 ml INHALATION Q5M PRN PRN Reason: Suctioning Sodium Chloride (0.9% Saline Lock 10 Ml Syringe) 10 - 40 ml IV UD PRN PRN Reason: Multilumen/Warren Flush Last Admin: 02/13/20 05:13 Dose: 10 ml Documented by: Sodium Chloride (0.9 % Nacl (Sterile) Posiflush 10 Ml) 10 - 40 ml IV UD PRN PRN Reason: Port access or dressing change Sodium Chloride (0.9% Saline Lock 10 Ml Syringe) 10 - 40 ml IV UD PRN PRN Reason: SALINE FLUSH Throat Lozenges (Benzocaine/Menthol 1 Lozenge) 1 lozenge MUCOUS MEM Q2H PRN PRN PRN Reason: SORE THROAT Ticagrelor (Ticagrelor 90 Mg Tablet) 90 mg PO BID ANTONIO Last Admin: 02/12/20 21:24 Dose: 90 mg Documented by: Medical Necessity - Tobacco Use Smoking Status: Current every day smoker Tobacco Use: Cigarettes Assessment/Plan All Active Problems (Last Updated 07/01/17 @ 12:07 by Lisa Ferreira) STEMI (ST elevation myocardial infarction) (Acute) Cardiac arrest (Acute) Torsades de pointes (Acute) Ventricular tachycardia (Acute) NSTEMI (non-ST elevated myocardial infarction) (Acute) Cardiogenic shock (Acute) RECOMMENDATIONS: 1. Okay to resume hydrocortisone per home regimen. 2. Continue scheduled bronchodilator therapy. 3. Antibiotics can be deescalated to Levaquin with plans to complete a 7-day treatment course. 4. Continue PPI therapy. 5. Continue to wean supplemental oxygen to maintain saturations at or above 90%. 6. Encourage bronchopulmonary hygiene and mobilize patient as tolerated. 7. The patient is medically stable for transfer out of the intensive care unit. IMPRESSIONS: 1. Acute on chronic hypoxemic respiratory failure status post cardiac arrest/STEMI/cardiogenic shock The patient presented to the hospital in full cardiac arrest, necessitating revascularization. The patient was intubated as a consequence of her acute presentation. She does have an apparent 2 L/min baseline oxygen requirement along with COPD of unknown severity. The patient was able to be successfully ex tubated on the morning of February 10. The patient did require vasopressor support for a period of time, but does have a known history of adrenal insufficiency. Following treatment with stress dose steroids and antimicrobials, the patient has been weaned from vasopressor support. Her baseline hydrocortisone therapy can be resumed. Recommend continuing antibiotics with plans to complete a 7-day treatment course. Continue to wean supplemental oxygen to maintain saturations at or above 90%. Continue aggressive bronchopulmonary hygiene and mobilize patient as tolerated. 2. History of COPD of unknown severity/chronic tobacco dependency Continue scheduled bronchodilator therapy. Wean supplemental oxygen as tolerated. Nicotine replacement therapy can be offered to the patient while admitted to the hospital. 3. History of coronary artery disease status post CABG Continue current medical management per cardiology recommendations. 4. History of adrenal insufficiency The patient is on baseline hydrocortisone therapy, dosed twice daily. Given that she is no longer requiring vasopressor support, stress dose steroids can be discontinued and her baseline hydrocortisone regimen resumed. 5. Hypertension/hyperlipidemia/anxiety Complicates care, management, recovery and prognosis. Continue home medications as indicated. This note was generated with Snapdeal dictation software. It may contain incorrect words, spelling, and punctuation that were not noted in checking the note before signing. Inpatient E&M: [id number] [facility] L3
[2020-02-13] MEDS: Ipratropium/Albuterol Sulfate 3 ML AMPUL.NEB INHALATION ×3 (07:36→19:40)
[2020-02-13] MEDS: Metoprolol(XL)Succ 25 MG Tablet PO (08:07)
[2020-02-13] MEDS: Aspirin 81 MG TAB.CHEW PO (08:07)
[2020-02-13] MEDS: Pantoprazole Sodium 40 MG Tablet PO (08:08)
[2020-02-13] MEDS: Lisinopril 5 MG Tablet PO (08:08)
[2020-02-13] MEDS: Hydrocortisone 10 MG Tablet 20 MG PO (08:08)
--- NOTE | 2020-02-13 12:00 | PCM.PN.HOSP ---
Patient Problems: Active and Suspected Problems (Last Updated 07/01/17 @ 12:07 by Lisa Ferreira) STEMI (ST elevation myocardial infarction) (Acute) Cardiac arrest (Acute) Torsades de pointes (Acute) Ventricular tachycardia (Acute) NSTEMI (non-ST elevated myocardial infarction) (Acute) Cardiogenic shock (Acute) Reason for Visit: CPA Subjective: Feels good. Vitals/I&O's: Vital Signs Temp Pulse Resp BP Pulse Ox 36.9 C 86 18 121/72 H 93 02/13/20 11:31 02/13/20 11:31 02/13/20 11:31 02/13/20 11:31 02/13/20 11:31 Oxygen Flow Rate (L/min) 6 Oxygen Delivery Method Nasal Cannula Weight: 65 kg Body Mass Index (BMI) 21.9 Finger Stick Blood Glucose 61 Intake and Output for Last 24 Hours 02/11/20 02/12/20 02/13/20 23:59 23:59 23:59 Intake Total 3892.73 / 3920.23 2429.61 / 2429.61 700 / 700 Output Total 1265 / 1265 1000 / 1000 0 / 0 Balance 2627.73 / 2655.23 1429.61 / 1429.61 700 / 700 General: Alert, No apparent distress HEENT: Atraumatic, Normocephalic Oral: Moist Mucosa, No Gingival or Mucosal Lesions/ Ulcerations Neck: No Nodes, Thyroid Normal Size and Texture Lungs: Clear to auscultation, Normal air movement, No rhonchi, No wheeze, No rales Cardiovascular: Regular rate, Regular Rhythm, Normal S1, Normal S2, No murmurs Abdomen: Bowel Sounds Present, Soft, Non Tender, Non-Distended, No Hepato-splenomegaly Extremities: No edema, No Calf Tenderness Microbiology Past 72 Hours 02/11/20 02:55 Urine Catheter - Michaud Urine Culture - Final Culture exhibits no growth. 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 - Final Escherichia coli 02/11/20 03:25 Blood Culture (Wb) - Left Hand Blood Culture - Preliminary No growth in 48 hours. 02/11/20 02:50 Blood Culture (Wb) - Line Draw Blood Culture - Preliminary No growth in 48 hours. Laboratory Results 02/13/20 03:40: WBC 14.9 H, RBC 3.11 L, Hgb 9.7 L, Hct 29.9 L, MCV 96.1, MCH 31.2, MCHC 32.4, RDW Std Deviation 48.1 H, RDW Coeff of Nehemiah 13.6, Plt Count 148 L, MPV 10.0, Immature Gran % (Auto) 0.900, Neut % (Auto) 89.7 H, Lymph % (Auto) 4.2 L, Piute % (Auto) 5.1, Eos % (Auto) 0.0, Baso % (Auto) 0.1, Absolute Neuts (auto) 13.4 H, Absolute Lymphs (auto) 0.62 L, Nucleated RBC % 0 02/13/20 03:40: Sodium 140, Potassium 3.8, Chloride 111 H, Carbon Dioxide 25.0, Anion Gap 4 L, BUN 14, Creatinine 0.75, Estim Creat Clear Calc 70.01, Est GFR (MDRD) Af Amer 100, Est GFR (MDRD) Non-Af 83, BUN/Creatinine Ratio 18.7, Glucose 113 H, Calcium 7.4 L, Total Bilirubin 0.70, AST 75 H, ALT 60 H, Alkaline Phosphatase 56, Total Protein 6.0 L, Albumin 2.3 L, Globulin 3.7, Albumin/Globulin Ratio 0.6 L Current Medications Acetaminophen (Acetaminophen 325 Mg Tablet) 650 mg PO Q4H PRN PRN PRN Reason: Pain 1-10 or Fever Last Admin: 02/13/20 07:58 Dose: 650 mg Documented by: Al Hydroxide/Mg Hydroxide (Mag Hydrox/Al Hydrox/Simeth 30 Ml Udc) 30 ml PO Q6H PRN PRN PRN Reason: Gastric Burning Albuterol Sulfate (Albuterol 2.5 Mg/3 Ml Vial.Neb.) 2.5 mg INHALATION Q2H PRN PRN PRN Reason: Dyspnea, wheezing Albuterol/Ipratropium (Ipratropium/Albuterol Sulfate 3 Ml Ampul.Neb) 3 ml INHALATION Q6HWA.RT ANTONIO Last Admin: 02/13/20 07:36 Dose: 3 ml Documented by: Aspirin (Aspirin 81 Mg Tab.Chew) 81 mg PO DAILY@0800 [facility] Last Admin: 02/13/20 08:07 Dose: 81 mg Documented by: Atorvastatin Calcium (Atorvastatin Calcium 10 Mg Tablet) 10 mg PO QHS [facility] Last Admin: 02/12/20 21:24 Dose: 10 mg Documented by: Enoxaparin Sodium (Enoxaparin 40 Mg/0.4 Ml Syringe) 40 mg SC DAILY@0600 [facility] Last Admin: 02/13/20 05:12 Dose: 40 mg Documented by: Hydralazine HCl (Hydralazine 20 Mg/Ml Vial) 10 mg IV Q4H PRN PRN PRN Reason: SBP > 160 Hydrocortisone (Hydrocortisone 10 Mg Tablet) 20 mg PO DAILY@0800 [facility] Last Admin: 02/13/20 08:08 Dose: 20 mg Documented by: Hydrocortisone (Hydrocortisone 10 Mg Tablet) 10 mg PO DINNER [facility] Sodium Chloride () 250 mls @ 15 mls/hr IV .[id number] PRN PRN Reason: Saline Flush Sodium Chloride () 250 mls @ 15 mls/hr IV .[id number] PRN PRN Reason: Additional IVPB Infusion Piperacillin Sod/Tazobactam (Sod 3.375 gm/ Sodium Chloride) 50 mls @ 12.5 mls/hr IV Q8 [facility] Last Infusion: 02/13/20 09:00 Dose: Infused Documented by: Lisinopril (Lisinopril 5 Mg Tablet) 5 mg PO DAILY [facility] Last Admin: 02/13/20 08:08 Dose: 5 mg Documented by: Lorazepam (Lorazepam 0.5 Mg Tablet) 0.5 mg PO QHS [facility] Last Admin: 02/12/20 21:23 Dose: 0.5 mg Documented by: Magnesium Hydroxide (Magnesium Hydroxide 30 Ml Udc) 30 ml PO DAILY PRN PRN PRN Reason: Constipation Metoprolol Succinate (Metoprolol(Xl)Succ 25 Mg Tablet) 25 mg PO DAILY [facility] Last Admin: 02/13/20 08:07 Dose: 25 mg Documented by: Nitroglycerin (Nitroglycerin (Inpatient Use) 0.4 Mg Tab.Subl) 0.4 mg SUBLINGUAL Q5M PRN PRN Reason: CARDIAC/CHEST PAIN Ondansetron HCl (Ondansetron 4 Mg/2 Ml Vial) 4 mg IV Q8H PRN PRN PRN Reason: NAUSEA/VOMITING Last Admin: 02/11/20 10:10 Dose: 4 mg Documented by: Oxycodone HCl (Oxycodone 5 Mg Tablet) 5 mg PO Q4H PRN PRN PRN Reason: Pain Score 6-10 Last Admin: 02/13/20 07:59 Dose: 5 mg Documented by: Pantoprazole Sodium (Pantoprazole Sodium 40 Mg Tablet) 40 mg PO DAILY [facility] Last Admin: 02/13/20 08:08 Dose: 40 mg Documented by: Prochlorperazine Edisylate (Prochlorperazine 10 Mg/2 Ml Vial) 5 mg IV Q4H PRN PRN PRN Reason: Breakthrough Nausea/Vomiting Psyllium Hydrophilic Mucilloid (Psyllium 1 Packet) 1 packet PO DAILY PRN PRN PRN Reason: Constipation Senna/Docusate Sodium (Senna/Docusate Sodium 1 Tablet) 2 tablet PO BID PRN PRN Reason: Constipation Sodium Chloride (Sodium Cl For Inhalation 15 Ml Vial.Neb.) 5 ml INHALATION Q5M PRN PRN Reason: Suctioning Sodium Chloride (0.9% Saline Lock 10 Ml Syringe) 10 - 40 ml IV UD PRN PRN Reason: Multilumen/Warren Flush Last Admin: 02/13/20 08:10 Dose: 30 ml Documented by: Sodium Chloride (0.9 % Nacl (Sterile) Posiflush 10 Ml) 10 - 40 ml IV UD PRN PRN Reason: Port access or dressing change Sodium Chloride (0.9% Saline Lock 10 Ml Syringe) 10 - 40 ml IV UD PRN PRN Reason: SALINE FLUSH Throat Lozenges (Benzocaine/Menthol 1 Lozenge) 1 lozenge MUCOUS MEM Q2H PRN PRN PRN Reason: SORE THROAT Ticagrelor (Ticagrelor 90 Mg Tablet) 90 mg PO BID [facility] Last Admin: 02/12/20 21:24 Dose: 90 mg Documented by: STROKE Vital Signs/Narrative: Vital Signs Temp Pulse Resp BP Pulse Ox 02/13/20 11:31 36.9 C 86 18 121/72 H 93 02/13/20 08:07 94 Medical Necessity - Tobacco Use Smoking Status: Current every day smoker Tobacco Use: Cigarettes Assessment/Plan All Active Problems (Last Updated 07/01/17 @ 12:07 by Lisa Ferreira) STEMI (ST elevation myocardial infarction) (Acute) Cardiac arrest (Acute) Torsades de pointes (Acute) Ventricular tachycardia (Acute) NSTEMI (non-ST elevated myocardial infarction) (Acute) Cardiogenic shock (Acute) 1. NSTEMI STEMI ruled out peak troponin 180 s/p PCI to SVG to OM no need to TF to tertiary facility at this time ASA, ticagrelor, atorvastatin (low dose given prior intolerance) cardiology following increase metoprolol. start low-dose ANGIE- 2. Cardiogenic shock 2/2 above and arrest norepinephrine turned off 02/11 solu-cortef changed back to home regimen 3. post-cardiac arrest torsade de pointes 4. Acute on chronic hypoxic respiratory failure extubated 02/10 5. Adrenal insufficiency on solucortef 50 IV Q6h, if remains stable off pressors, can resume regular home dosing. 6. VTE prophylaxis: LMWH Transfer to PCU Anticipate discharge in next 24-48h. Inpatient E&M: [id number] [facility] L2
[2020-02-13] MEDS: TICAGRELOR 90 MG TABLET PO ×2 (12:27→21:29)
[2020-02-13] MEDS: Hydrocortisone 10 MG Tablet PO (17:31)
--- NOTE | 2020-02-13 19:00 | PCS.PANDOC ---
PANDEMIC DOCUMENTATION INITIATED: Date: 02/10/20 Time: 15:10
[2020-02-13] MEDS: LORazepam 0.5 MG Tablet PO (21:27)
[2020-02-13] MEDS: Atorvastatin Calcium 10 MG Tablet PO (21:29)
[2020-02-14] VITALS (12 sets, daily range): BP systolic 102–126; BP diastolic 63–96; PULSE 81–95; RESP 16–22; TEMP 36.3–36.8; O2SAT 94–96
[2020-02-14] MEDS: oxyCODONE 5 MG Tablet PO ×4 (01:40→21:09)
[2020-02-14] MEDS: Acetaminophen 325 MG Tablet 650 MG PO (04:40)
[2020-02-14 05:57] LABS: Absolute Lymphocyte Count 1.73 X10^3/uL (0.83-4.51); Absolute Neutrophil Count 7.5 X10^3/uL (2.0-7.7); Basophil# 0.02 X10^3/uL; Basophil% 0.2 % (0-1); Eosinophils% 2.9 % (0-5); Hematocrit 28.7 % (37-47); Hemoglobin 9.3 g/dL (12.0-15.0); Lymphocyte # 1.73 X10^3/ul (4.0); Mean Corp Hgb Conc 32.4 g/dL (32-36); Mean Corpuscular Hgb 30.9 pg (27.0-32.0); Mean Corpuscular Volume 95.3 fL (81-99); Mean Platelet Vol. 9.5 fl (6.2-12.0); Monocyte# 0.62 X10^3/uL; Monocyte% 6.1 % (0-10); NRBC Flagged by Analyzer 0 % (0-5); Neutrophil # 7.47 X10^3/uL (2.7-7.7); Neutrophil % 73.3 % (47-70); Platelet Count 156 K/mm3 (150-450); RBC Distribution Width CV 13.9 % (11.6-14.6); RBC Distribution Width SD 47.8 fl (35.1-43.9); Red Blood Count 3.01 M/mm3 (4.2-5.4); White Blood Count 10.2 K/mm3 (4.4-11.0)
[2020-02-14] MEDS: Enoxaparin 40 MG/0.4 ML Syringe SC (06:00)
[2020-02-14 06:10] LABS: Anion Gap 5 (5-15); BUN 15 mg/dL (7-18); BUN/Creat Ratio 23.2 RATIO (10-20); Calcium,Total 7.7 mg/dL (8.5-10.1); Chloride 110 mmol/L (98-107); Creatinine, Serum 0.65 mg/dL (0.55-1.02); EST Glomerular Filtration Rate 98 mL/min (>60); Est Glom Filt Rate - Afr Amer 118 mL/min (>60); Estimated Creatinine Clearance 80.78 ml/min; Glucose 82 mg/dL (74-106); Potassium 3.1 mmol/L (3.5-5.1); Sodium Level 140 mmol/L (136-145)
[2020-02-14] MEDS: Ipratropium/Albuterol Sulfate 3 ML AMPUL.NEB INHALATION ×2 (06:52→19:14)
--- NOTE | 2020-02-14 08:15 | RAD_ITS ---
STUDY: X-RAY CHEST REASON FOR EXAM: Female, 64 years old. SOB TECHNIQUE: Single frontal view of the chest. COMPARISON: None. FINDINGS: PICC line is seen on the right side its tip is at the lower part of the superior vena cava. Ill-defined subpleural groundglass opacities are seen more prominent in the right upper lobe, may represent atypical pneumonia or viral pneumonia (COVID-19 ?). There is a small right pleural effusion Normal size heart. Normal mediastinum and mary. Normal visualized pulmonary arteries. Normal visualized aortic arch and descending thoracic aorta. Normal visualized thoracic spine. Normal visualized ribs, clavicles, and shoulders. There is no demonstrated abnormality of the visualized soft tissue structures of the upper abdomen. RAD/Chest 1 View (Portable) IMPRESSION: Ill-defined subpleural groundglass opacities are seen more prominent in the right upper lobe, may represent atypical pneumonia or viral pneumonia (COVID-19 ?). There is a small right pleural effusion Electronically Signed: Anna Jimenez, at 9:29 EST Tel , Service support ,
--- NOTE | 2020-02-14 08:22 | PN_ITS ---
Patient Problems: Active and Suspected Problems (Last Updated 07/01/17 @ 12:07 by Lisa Ferreira) STEMI (ST elevation myocardial infarction) (Acute) Cardiac arrest (Acute) Torsades de pointes (Acute) Ventricular tachycardia (Acute) NSTEMI (non-ST elevated myocardial infarction) (Acute) Cardiogenic shock (Acute) Subjective: The patient was seen and examined at the bedside this morning. Events from the last 24 hours have been reviewed. The patient is currently afebrile, hemodynamically stable and maintaining appropriate oxygen saturations on 4 L/min via nasal cannula. Potassium is low this morning at 3.1. The patient does continue to have some residual chest pain. Objective: The patient's most recent lab work, culture data and imaging studies have all been personally reviewed. Surface echocardiogram revealed normal LV size with an ejection fraction of 40% and stage I diastolic dysfunction. Coronavirus PCR was negative on February 09. Sputum Gram stain was positive for E. coli. - Physical Exam Vitals/I&O's: Vital Signs Temp Pulse Resp BP Pulse Ox 98.3 F 85 16 126/96 H 95 02/14/20 04:30 02/14/20 07:00 02/14/20 06:52 02/14/20 04:30 02/14/20 06:52 Oxygen Flow Rate (L/min) 4 Oxygen Delivery Method Nasal Cannula Weight: 142 lb 13.753 oz Body Mass Index (BMI) 21.9 Finger Stick Blood Glucose 61 Intake and Output for Last 24 Hours 02/12/20 02/13/20 02/14/20 23:59 23:59 23:59 Intake Total 2429.61 / 2429.61 1350 / 1350 392 / 392 Output Total 1000 / 1000 0 / 0 150 / 150 Balance 1429.61 / 1429.61 1350 / 1350 242 / 242 General: Alert, Cooperative HEENT: Atraumatic, PERRLA, Normocephalic Oral: No Gingival or Mucosal Lesions/ Ulcerations Neck: Supple, No Nodes, Trachea Midline Lungs: Diminished Cardiovascular: Regular rate, Regular Rhythm, Normal S1, Normal S2, No murmurs Abdomen: Bowel Sounds Present, Soft, Non Tender Extremities: No clubbing, No cyanosis, No edema Skin: No breakdown Lymphatic: No Cervical, Supraclavicular, or Inguinal Adenopathy Neurological: Cranial nerves II-XII grossly intact, Neuro grossly intact Psych/Mental Status: Normal Affect, Appropriate Labs (Last 48 Hours) 02/13/20 02/13/20 02/14/20 03:40 03:40 05:50 WBC 14.9 H 10.2 RBC 3.11 L 3.01 L Hgb 9.7 L 9.3 L Hct 29.9 L 28.7 L MCV 96.1 95.3 MCH 31.2 30.9 MCHC 32.4 32.4 RDW Std Deviation 48.1 H 47.8 H RDW Coeff of Nehemiah 13.6 13.9 Plt Count 148 L 156 MPV 10.0 9.5 Immature Gran % (Auto) 0.900 0.500 Neut % (Auto) 89.7 H 73.3 H Lymph % (Auto) 4.2 L 17.0 L [place] % (Auto) 5.1 6.1 Eos % (Auto) 0.0 2.9 Baso % (Auto) 0.1 0.2 Absolute Neuts (auto) 13.4 H 7.5 Absolute Lymphs (auto) 0.62 L 1.73 Nucleated RBC % 0 0 Sodium 140 Potassium 3.8 Chloride 111 H Carbon Dioxide 25.0 Anion Gap 4 L BUN 14 Creatinine 0.75 Estim Creat Clear Calc 70.01 Est GFR (MDRD) Af Amer 100 Est GFR (MDRD) Non-Af 83 BUN/Creatinine Ratio 18.7 Glucose 113 H Calcium 7.4 L Total Bilirubin 0.70 AST 75 H ALT 60 H Alkaline Phosphatase 56 Total Protein 6.0 L Albumin 2.3 L Globulin 3.7 Albumin/Globulin Ratio 0.6 L 02/14/20 05:50 WBC RBC Hgb Hct MCV MCH MCHC RDW Std Deviation RDW Coeff of Nehemiah Plt Count MPV Immature Gran % (Auto) Neut % (Auto) Lymph % (Auto) [place] % (Auto) Eos % (Auto) Baso % (Auto) Absolute Neuts (auto) Absolute Lymphs (auto) Nucleated RBC % Sodium 140 Potassium 3.1 L Chloride 110 H Carbon Dioxide 25.0 Anion Gap 5 BUN 15 Creatinine 0.65 Estim Creat Clear Calc 80.78 Est GFR (MDRD) Af Amer 118 Est GFR (MDRD) Non-Af 98 BUN/Creatinine Ratio 23.2 H Glucose 82 Calcium 7.7 L Total Bilirubin AST ALT Alkaline Phosphatase Total Protein Albumin Globulin Albumin/Globulin Ratio Microbiology 02/11/20 02:55 Urine Catheter - Michaud Urine Culture - Final Culture exhibits no growth. 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 - Final Escherichia coli 02/11/20 03:25 Blood Culture (Wb) - Left Hand Blood Culture - Preliminary No growth in 48 hours. 02/11/20 02:50 Blood Culture (Wb) - Line Draw Blood Culture - Preliminary No growth in 48 hours. Clinical Impression(s) from Imaging Studies Chest X-Ray 02/10/20 14:44 IMPRESSION: 1. Expected appearance of endotracheal and gastric tubes. 2. No acute cardiorespiratory disease. 3. Coronary bypass grafting. Electronically Signed: Ronny Hanson at 16:18 EST Tel , Service support , Chest X-Ray 02/10/20 19:50 IMPRESSION: IABP with tip projecting over the aortic arch. Otherwise stable. Electronically Signed: Brandon Hernandez MD (Brooks) at 20:13 EST , Service support , KUB X-Ray 02/10/20 19:53 IMPRESSION: Right groin IABP. Enteric/gastric tube. Electronically Signed: Brandon Hernandez MD (Brooks) at 20:46 EST , Service support , Chest X-Ray 02/11/20 05:55 IMPRESSION: ET tube at the tip 4.2 cm proximal to the alina NG tube similar Left basilar atelectasis at 0617 Reported and signed by: Jami Seay DO Electronically Signed: Jami Seay DO at 6:16 EST Tel , Service support , Current Medications Acetaminophen (Acetaminophen 325 Mg Tablet) 650 mg PO Q4H PRN PRN PRN Reason: Pain 1-10 or Fever Last Admin: 02/14/20 04:40 Dose: 650 mg Documented by: Al Hydroxide/Mg Hydroxide (Mag Hydrox/Al Hydrox/Simeth 30 Ml Udc) 30 ml PO Q6H PRN PRN PRN Reason: Gastric Burning Albuterol Sulfate (Albuterol 2.5 Mg/3 Ml Vial.Neb.) 2.5 mg INHALATION Q2H PRN PRN PRN Reason: Dyspnea, wheezing Albuterol/Ipratropium (Ipratropium/Albuterol Sulfate 3 Ml Ampul.Neb) 3 ml INHALATION Q6HWA.RT [facility] Last Admin: 02/14/20 06:52 Dose: 3 ml Documented by: Aspirin (Aspirin 81 Mg Tab.Chew) 81 mg PO DAILY@0800 [facility] Last Admin: 02/13/20 08:07 Dose: 81 mg Documented by: Atorvastatin Calcium (Atorvastatin Calcium 10 Mg Tablet) 10 mg PO QHS [facility] Last Admin: 02/13/20 21:29 Dose: 10 mg Documented by: Enoxaparin Sodium (Enoxaparin 40 Mg/0.4 Ml Syringe) 40 mg SC DAILY@0600 [facility] Last Admin: 02/14/20 06:00 Dose: 40 mg Documented by: Furosemide (Furosemide 40 Mg/4 Ml Vial) 40 mg IV BID@1000,1800 [facility] Hydralazine HCl (Hydralazine 20 Mg/Ml Vial) 10 mg IV Q4H PRN PRN PRN Reason: SBP > 160 Hydrocortisone (Hydrocortisone 10 Mg Tablet) 20 mg PO DAILY@0800 [facility] Last Admin: 02/13/20 08:08 Dose: 20 mg Documented by: Hydrocortisone (Hydrocortisone 10 Mg Tablet) 10 mg PO DINNER [facility] Last Admin: 02/13/20 17:31 Dose: 10 mg Documented by: Sodium Chloride () 250 mls @ 15 mls/hr IV .[id number] PRN PRN Reason: Saline Flush Last Infusion: 02/14/20 04:30 Dose: 0 mls/hr Documented by: Sodium Chloride () 250 mls @ 15 mls/hr IV .[id number] PRN PRN Reason: Additional IVPB Infusion Piperacillin Sod/Tazobactam (Sod 3.375 gm/ Sodium Chloride) 50 mls @ 12.5 mls/hr IV Q8 [facility] Last Admin: 02/14/20 05:55 Dose: 12.5 mls/hr Documented by: Lisinopril (Lisinopril 5 Mg Tablet) 5 mg PO DAILY [facility] Last Admin: 02/13/20 08:08 Dose: 5 mg Documented by: Lorazepam (Lorazepam 0.5 Mg Tablet) 0.5 mg PO QHS [facility] Last Admin: 02/13/20 21:27 Dose: 0.5 mg Documented by: Magnesium Hydroxide (Magnesium Hydroxide 30 Ml Udc) 30 ml PO DAILY PRN PRN PRN Reason: Constipation Metoprolol Succinate (Metoprolol(Xl)Succ 25 Mg Tablet) 25 mg PO DAILY [facility] Last Admin: 02/13/20 08:07 Dose: 25 mg Documented by: Nitroglycerin (Nitroglycerin (Inpatient Use) 0.4 Mg Tab.Subl) 0.4 mg SUBLINGUAL Q5M PRN PRN Reason: CARDIAC/CHEST PAIN Ondansetron HCl (Ondansetron 4 Mg/2 Ml Vial) 4 mg IV Q8H PRN PRN PRN Reason: NAUSEA/VOMITING Last Admin: 02/11/20 10:10 Dose: 4 mg Documented by: Oxycodone HCl (Oxycodone 5 Mg Tablet) 5 mg PO Q4H PRN PRN PRN Reason: Pain Score 6-10 Last Admin: 02/14/20 05:45 Dose: 5 mg Documented by: Pantoprazole Sodium (Pantoprazole Sodium 40 Mg Tablet) 40 mg PO DAILY [facility] Last Admin: 02/13/20 08:08 Dose: 40 mg Documented by: Potassium Chloride (Potassium Chloride 20 Meq Tablet) [facility]q [facility] Prochlorperazine Edisylate (Prochlorperazine 10 Mg/2 Ml Vial) 5 mg IV Q4H PRN PRN PRN Reason: Breakthrough Nausea/Vomiting Psyllium Hydrophilic Mucilloid (Psyllium 1 Packet) 1 packet PO DAILY PRN PRN PRN Reason: Constipation Senna/Docusate Sodium (Senna/Docusate Sodium 1 Tablet) 2 tablet PO BID PRN PRN Reason: Constipation Sodium Chloride (Sodium Cl For Inhalation 15 Ml Vial.Neb.) 5 ml INHALATION Q5M PRN PRN Reason: Suctioning Sodium Chloride (0.9% Saline Lock 10 Ml Syringe) 10 - 40 ml IV UD PRN PRN Reason: Multilumen/Warren Flush Last Admin: 02/13/20 08:10 Dose: 30 ml Documented by: Sodium Chloride (0.9 % Nacl (Sterile) Posiflush 10 Ml) 10 - 40 ml IV UD PRN PRN Reason: Port access or dressing change Sodium Chloride (0.9% Saline Lock 10 Ml Syringe) 10 - 40 ml IV UD PRN PRN Reason: SALINE FLUSH Throat Lozenges (Benzocaine/Menthol 1 Lozenge) 1 lozenge MUCOUS MEM Q2H PRN PRN PRN Reason: SORE THROAT Ticagrelor (Ticagrelor 90 Mg Tablet) 90 mg PO BID ANTONIO Last Admin: 02/13/20 21:29 Dose: 90 mg Documented by: Medical Necessity - Tobacco Use Smoking Status: Current every day smoker Tobacco Use: Cigarettes Assessment/Plan All Active Problems (Last Updated 07/01/17 @ 12:07 by Lisa Ferreira) STEMI (ST elevation myocardial infarction) (Acute) Cardiac arrest (Acute) Torsades de pointes (Acute) Ventricular tachycardia (Acute) NSTEMI (non-ST elevated myocardial infarction) (Acute) Cardiogenic shock (Acute) RECOMMENDATIONS: 1. Continue hydrocortisone per home regimen. 2. Continue scheduled bronchodilator therapy. 3. Antibiotics can be deescalated to Levaquin with plans to complete a 7-day treatment course. 4. Continue PPI therapy. 5. Continue to wean supplemental oxygen to maintain saturations at or above 90%. 6. Encourage bronchopulmonary hygiene and mobilize patient as tolerated. 7. Will sign off from a critical care perspective. Please call with any additional questions. IMPRESSIONS: 1. Acute on chronic hypoxemic respiratory failure status post cardiac arrest/STEMI/cardiogenic shock The patient presented to the hospital in full cardiac arrest, necessitating revascularization. The patient was intubated as a consequence of her acute presentation. She does have an apparent 2 L/min baseline oxygen requirement along with COPD of unknown severity. The patient was able to be successfully extubated on the morning of February 10. The patient did require vasopressor support for a period of time, but does have a known history of adrenal insufficiency. Following treatment with stress dose steroids and antimicrobials, the patient has been weaned from vasopressor support. Her baseline hydrocortisone therapy will be continued. Recommend continuing antibiotics with plans to complete a 7-day treatment course. Continue to wean supplemental oxygen to maintain saturations at or above 90%. Continue aggressive bronchopulmonary hygiene and mobilize patient as tolerated. 2. History of COPD of unknown severity/chronic tobacco dependency Continue scheduled bronchodilator therapy. Wean supplemental oxygen as tolerated. Nicotine replacement therapy can be offered to the patient while admitted to the hospital. 3. History of coronary artery disease status post CABG Continue current medical management per cardiology recommendations. 4. History of adrenal insufficiency Continue baseline hydrocortisone therapy per home regimen. The patient remains hemodynamically stable. 5. Hypertension/hyperlipidemia/anxiety Complicates care, management, recovery and prognosis. Continue home medications as indicated. This note was generated with [employer] dictation software. It may contain incorrect words, spelling, and punctuation that were not noted in checking the note before signing. Inpatient E&M: 09086 Subs Hosp L2
[2020-02-14] MEDS: TICAGRELOR 90 MG TABLET PO ×2 (08:37→21:09)
[2020-02-14] MEDS: Pantoprazole Sodium 40 MG Tablet PO (08:37)
[2020-02-14] MEDS: Metoprolol(XL)Succ 25 MG Tablet PO (08:37)
[2020-02-14] MEDS: Lisinopril 5 MG Tablet PO (08:37)
[2020-02-14] MEDS: Hydrocortisone 10 MG Tablet 20 MG PO ×2 (08:37→17:15)
[2020-02-14] MEDS: Furosemide 40 MG/4 ML Vial IV ×2 (08:38→17:16)
[2020-02-14] MEDS: Aspirin 81 MG TAB.CHEW PO (08:38)
--- NOTE | 2020-02-14 12:40 | PN_ITS ---
Patient Problems: Active and Suspected Problems (Last Updated 07/01/17 @ 12:07 by Lisa Ferreira) STEMI (ST elevation myocardial infarction) (Acute) Cardiac arrest (Acute) Torsades de pointes (Acute) Ventricular tachycardia (Acute) NSTEMI (non-ST elevated myocardial infarction) (Acute) Cardiogenic shock (Acute) Reason for Visit: cardiac arrest Subjective: Has a difficulty lying flat with discomfort in her chest as well as short of breath. Patient felt much more comfortable sitting at an angle chair. Vitals/I&O's: Vital Signs Temp Pulse Resp BP Pulse Ox 36.6 C 90 20 H 124/63 H 95 02/14/20 08:29 02/14/20 08:37 02/14/20 08:29 02/14/20 08:37 02/14/20 08:29 Oxygen Flow Rate (L/min) 4 Oxygen Delivery Method Nasal Cannula Weight: 64.8 kg Body Mass Index (BMI) 21.9 Finger Stick Blood Glucose 61 Intake and Output for Last 24 Hours 02/12/20 02/13/20 02/14/20 23:59 23:59 23:59 Intake Total 2429.61 / 2429.61 1350 / 1350 442 / 442 Output Total 1000 / 1000 0 / 0 150 / 150 Balance 1429.61 / 1429.61 1350 / 1350 292 / 292 General: Alert, No apparent distress HEENT: Atraumatic, Normocephalic Oral: Moist Mucosa, No Gingival or Mucosal Lesions/ Ulcerations Neck: No Nodes, Thyroid Normal Size and Texture Lungs: Normal air movement, - - scattered fine crackles Cardiovascular: Regular rate, Regular Rhythm, Normal S1, Normal S2 Abdomen: Bowel Sounds Present, Soft, Non Tender, Non-Distended, No Hepato-spleno megaly Extremities: No edema, No Calf Tenderness Skin: No rashes, No breakdown Psych/Mental Status: Normal Affect, Appropriate Microbiology Past 72 Hours 02/11/20 02:55 Urine Catheter - Michaud Urine Culture - Final Culture exhibits no growth. 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 - Final Escherichia coli 02/11/20 03:25 Blood Culture (Wb) - Left Hand Blood Culture - Preliminary No growth in 48 hours. 02/11/20 02:50 Blood Culture (Wb) - Line Draw Blood Culture - Preliminary No growth in 48 hours. Laboratory Results 02/14/20 05:50: WBC 10.2, RBC 3.01 L, Hgb 9.3 L, Hct 28.7 L, MCV 95.3, MCH 30.9, MCHC 32.4, RDW Std Deviation 47.8 H, RDW Coeff of Nehemiah 13.9, Plt Count 156, MPV 9.5, Immature Gran % (Auto) 0.500, Neut % (Auto) 73.3 H, Lymph % (Auto) 17.0 L, [place] % (Auto) 6.1, Eos % (Auto) 2.9, Baso % (Auto) 0.2, Absolute Neuts (auto) 7.5, Absolute Lymphs (auto) 1.73, Nucleated RBC % 0 02/14/20 05:50: Sodium 140, Potassium 3.1 L, Chloride 110 H, Carbon Dioxide 25.0, Anion Gap 5, BUN 15, Creatinine 0.65, Estim Creat Clear Calc 80.78, Est GFR (MDRD) Af Amer 118, Est GFR (MDRD) Non-Af 98, BUN/Creatinine Ratio 23.2 H, Glucose 82, Calcium 7.7 L Current Medications Acetaminophen (Acetaminophen 325 Mg Tablet) 650 mg PO Q4H PRN PRN PRN Reason: Pain 1-10 or Fever Last Admin: 02/14/20 04:40 Dose: 650 mg Documented by: Al Hydroxide/Mg Hydroxide (Mag Hydrox/Al Hydrox/Simeth 30 Ml Udc) 30 ml PO Q6H PRN PRN PRN Reason: Gastric Burning Albuterol Sulfate (Albuterol 2.5 Mg/3 Ml Vial.Neb.) 2.5 mg INHALATION Q2H PRN PRN PRN Reason: Dyspnea, wheezing Albuterol/Ipratropium (Ipratropium/Albuterol Sulfate 3 Ml Ampul.Neb) 3 ml INHALATION Q6HWA.RT [facility] Last Admin: 02/14/20 06:52 Dose: 3 ml Documented by: Aspirin (Aspirin 81 Mg Tab.Chew) 81 mg PO DAILY@0800 [facility] Last Admin: 02/14/20 08:38 Dose: 81 mg Documented by: Atorvastatin Calcium (Atorvastatin Calcium 10 Mg Tablet) 10 mg PO QHS [facility] Last Admin: 02/13/20 21:29 Dose: 10 mg Documented by: Enoxaparin Sodium (Enoxaparin 40 Mg/0.4 Ml Syringe) 40 mg SC DAILY@0600 [facility] Last Admin: 02/14/20 06:00 Dose: 40 mg Documented by: Furosemide (Furosemide 40 Mg/4 Ml Vial) 40 mg IV BID@1000,1800 [facility] Last Admin: 02/14/20 08:38 Dose: 40 mg Documented by: Hydralazine HCl (Hydralazine 20 Mg/Ml Vial) 10 mg IV Q4H PRN PRN PRN Reason: SBP > 160 Hydrocortisone (Hydrocortisone 10 Mg Tablet) 20 mg PO DAILY@0800 [facility] Last Admin: 02/14/20 08:37 Dose: 20 mg Documented by: Hydrocortisone (Hydrocortisone 10 Mg Tablet) 10 mg PO DINNER [facility] Last Admin: 02/13/20 17:31 Dose: 10 mg Documented by: Sodium Chloride () 250 mls @ 15 mls/hr IV .[id number] PRN PRN Reason: Saline Flush Last Infusion: 02/14/20 04:30 Dose: 0 mls/hr Documented by: Sodium Chloride () 250 mls @ 15 mls/hr IV .[id number] PRN PRN Reason: Additional IVPB Infusion Piperacillin Sod/Tazobactam (Sod 3.375 gm/ Sodium Chloride) 50 mls @ 12.5 mls/hr IV Q8 [facility] Last Infusion: 02/14/20 10:03 Dose: Infused Documented by: Lisinopril (Lisinopril 5 Mg Tablet) 5 mg PO DAILY [facility] Last Admin: 02/14/20 08:37 Dose: 5 mg Documented by: Lorazepam (Lorazepam 0.5 Mg Tablet) 0.5 mg PO QHS [facility] Last Admin: 02/13/20 21:27 Dose: 0.5 mg Documented by: Magnesium Hydroxide (Magnesium Hydroxide 30 Ml Udc) 30 ml PO DAILY PRN PRN PRN Reason: Constipation Metoprolol Succinate (Metoprolol(Xl)Succ 25 Mg Tablet) 25 mg PO DAILY [facility] Last Admin: 02/14/20 08:37 Dose: 25 mg Documented by: Nitroglycerin (Nitroglycerin (Inpatient Use) 0.4 Mg Tab.Subl) 0.4 mg SUBLINGUAL Q5M PRN PRN Reason: CARDIAC/CHEST PAIN Ondansetron HCl (Ondansetron 4 Mg/2 Ml Vial) 4 mg IV Q8H PRN PRN PRN Reason: NAUSEA/VOMITING Last Admin: 02/11/20 10:10 Dose: 4 mg Documented by: Oxycodone HCl (Oxycodone 5 Mg Tablet) 5 mg PO Q4H PRN PRN PRN Reason: Pain Score 6-10 Last Admin: 02/14/20 12:01 Dose: 5 mg Documented by: Pantoprazole Sodium (Pantoprazole Sodium 40 Mg Tablet) 40 mg PO DAILY [facility] Last Admin: 02/14/20 08:37 Dose: 40 mg Documented by: Potassium Chloride (Potassium Ch[facility] 20 Meq [facility]t) [facility] Last Admin: 02/14/20 08:36 Dose: 40 meq Documented by: Prochlorperazine Edisylate (Prochlorperazine 10 Mg/2 Ml Vial) 5 mg IV Q4H PRN PRN PRN Reason: Breakthrough Nausea/Vomiting Psyllium Hydrophilic Mucilloid (Psyllium 1 Packet) 1 packet PO DAILY PRN PRN PRN Reason: Constipation Senna/Docusate Sodium (Senna/Docusate Sodium 1 Tablet) 2 tablet PO BID PRN PRN Reason: Constipation Sodium Chloride (Sodium Cl For Inhalation 15 Ml Vial.Neb.) 5 ml INHALATION Q5M PRN PRN Reason: Suctioning Sodium Chloride (0.9% Saline Lock 10 Ml Syringe) 10 - 40 ml IV UD PRN PRN Reason: Multilumen/Warren Flush Last Admin: 02/13/20 08:10 Dose: 30 ml Documented by: Sodium Chloride (0.9 % Nacl (Sterile) Posiflush 10 Ml) 10 - 40 ml IV UD PRN PRN Reason: Port access or dressing change Sodium Chloride (0.9% Saline Lock 10 Ml Syringe) 10 - 40 ml IV UD PRN PRN Reason: SALINE FLUSH Throat Lozenges (Benzocaine/Menthol 1 Lozenge) 1 lozenge MUCOUS MEM Q2H PRN PRN PRN Reason: SORE THROAT Ticagrelor (Ticagrelor 90 Mg Tablet) 90 mg PO BID [facility] Last Admin: 02/14/20 08:37 Dose: 90 mg Documented by: Medical Necessity - Tobacco Use Smoking Status: Current every day smoker Tobacco Use: Cigarettes Assessment/Plan All Active Problems (Last Updated 07/01/17 @ 12:07 by Lisa Ferreira) STEMI (ST elevation myocardial infarction) (Acute) Cardiac arrest (Acute) Torsades de pointes (Acute) Ventricular tachycardia (Acute) NSTEMI (non-ST elevated myocardial infarction) (Acute) Cardiogenic shock (Acute) 1. NSTEMI * STEMI ruled out * peak troponin 180 * s/p PCI to SVG to OM * no need to TF to tertiary facility at this time * ASA, ticagrelor, atorvastatin (low dose given prior intolerance) * cardiology following * increase metoprolol. start low-dose ANGIE- 2. Cardiogenic shock * 2/2 above and arrest * norepinephrine turned off 02/11 * complicated by adrenal insufficiency. solu-cortef changed back to home regimen 3. post-cardiac arrest * had torsade de pointes 4. Acute on chronic hypoxic respiratory failure * extubated 02/10 5. Adrenal insufficiency * resumed back on home dosing * may have developed from adrenal infiltration from CA or side effect of chemo 6. Acute HFrEF * EF 40% * CXR shows pulmonary vascular congestion and pleural effusions (new from earlier). +7 liters since admission from resuscitation. * start furosemide * continue metoprolol succinate and lisinopril 7. VTE prophylaxis: LMWH 8. Disposition: home likely in next 48-72h Inpatient E&M: 16291 Subs Hosp L2
--- NOTE | 2020-02-14 13:24 | CASEMGMT ---
This KENDALL CM provided [employer] savings card to patient. Explained 30 days free and pt adamant her insurance would cover after this period. Pt declined further explanation. Discussed home O2. Pt states she wears O2 at 2l/min at HS only. States she does have portable tanks and a concentrator. Pt currently requiring O2 at 4l/min. Will need to be evaluated for continuous O2 need upon discharge. Pt denies any further concerns and plan remains to discharge to home. Jefferson Hayes RN CM
[2020-02-14] MEDS: Hydrocortisone 10 MG Tablet PO (17:15)
[2020-02-14] MEDS: LORazepam 0.5 MG Tablet PO (17:15)
--- NOTE | 2020-02-14 18:22 | PCM.PN.CARD ---
Subjectve: Patient had shortness of breath yesterday but is better today on IV Lasix. She continues to have chest discomfort that appears to be musculoskeletal secondary to CPR. Objective: Vital Signs Temp Pulse Resp BP Pulse Ox 97.4 F L 94 18 102/72 96 02/14/20 14:09 02/14/20 15:00 02/14/20 14:09 02/14/20 14:09 02/14/20 14:09 Oxygen Flow Rate (L/min) 4 Oxygen Delivery Method Nasal Cannula Weight: 142 lb 13.753 oz Body Mass Index (BMI) 21.9 Finger Stick Blood Glucose 61 Intake and Output for Last 24 Hours 02/12/20 02/13/20 02/14/20 23:59 23:59 23:59 Intake Total 2429.61 / 2429.61 1350 / 1350 972 / 972 Output Total 1000 / 1000 0 / 0 650 / 650 Balance 1429.61 / 1429.61 1350 / 1350 322 / 322 General: Awake Neck: Supple Lungs: Rales - Left Base Abdomen: Soft Extremities: No edema Skin: No Rashes Psych/Mental Status: Appropriate 02/14/20 05:50: WBC 10.2, RBC 3.01 L, Hgb 9.3 L, Hct 28.7 L, MCV 95.3, MCH 30.9, MCHC 32.4, Plt Count 156, MPV 9.5, Immature Gran % (Auto) 0.500, Neut % (Auto) 73.3 H, Lymph % (Auto) 17.0 L, [place] % (Auto) 6.1, Eos % (Auto) 2.9, Baso % (Auto) 0.2, Absolute Neuts (auto) 7.5, Nucleated RBC % 0 02/14/20 05:50: Sodium 140, Potassium 3.1 L, Chloride 110 H, Carbon Dioxide 25.0, Anion Gap 5, BUN 15, Creatinine 0.65, Est GFR (MDRD) Af Amer 118, Est GFR (MDRD) Non-Af 98, BUN/Creatinine Ratio 23.2 H, Glucose 82, Calcium 7.7 L Rhythm: EKG: ECHO: Stress Test: Cardiac Cath: PCI: CT Surgery: Holter monitor: EPS: PPM: CXR: Chest CT Scan: Medical Necessity - Tobacco Use Smoking Status: Current every day smoker Tobacco Use: Cigarettes Assessment/Plan 1. ST elevation [place]: Status post PCI to SVG to OM. Continue aspirin, statin, Brilinta, beta-nakul and ANGIE inhibitor. 2. Coronary artery disease: Patient's angiogram was reviewed. Her bypass surgery report was also reviewed. KENNY was used as a free pedicle to the LAD. This was not visualized during the procedure done as an emergency yesterday. The LAD is occluded/subtotally occluded. Faint filling of the LAD is noted at the time of LV gram and is likely through the KENNY. The anterior wall is also moving well. Most likely the KENNY to LAD is patent. As an outpatient if patient continues to have anginal symptoms we can repeat the angiography. 3. CHF: Patient responded well to IV Lasix. Will be reasonable to continue IV Lasix for another day and convert it to p.o. probably tomorrow.
[2020-02-14] MEDS: Atorvastatin Calcium 10 MG Tablet PO (21:09)
[2020-02-14] MEDS: LORazepam 1 MG Tablet PO (22:18)
[2020-02-15] VITALS (8 sets, daily range): BP systolic 116–129; BP diastolic 73–76; PULSE 63–105; RESP 18–20; TEMP 36.4–36.8; O2SAT 84–96
[2020-02-15] MEDS: Enoxaparin 40 MG/0.4 ML Syringe SC (05:00)
[2020-02-15 06:03] LABS: Absolute Lymphocyte Count 2.15 X10^3/uL (0.83-4.51); Absolute Neutrophil Count 8.1 X10^3/uL (2.0-7.7); Basophil# 0.04 X10^3/uL; Basophil% 0.3 % (0-1); Eosinophil# 0.53 X10^3/uL; Eosinophils% 4.6 % (0-5); Hemoglobin 10.4 g/dL (12.0-15.0); Lymphocyte # 2.15 X10^3/ul (4.0); Lymphocyte % 18.5 % (19-41); Mean Corp Hgb Conc 33.5 g/dL (32-36); Mean Corpuscular Volume 92.5 fL (81-99); Mean Platelet Vol. 9.6 fl (6.2-12.0); Monocyte# 0.78 X10^3/uL; Monocyte% 6.7 % (0-10); NRBC Flagged by Analyzer 0 % (0-5); Neutrophil # 8.06 X10^3/uL (2.7-7.7); Neutrophil % 69.2 % (47-70); Platelet Count 202 K/mm3 (150-450); RBC Distribution Width CV 13.5 % (11.6-14.6); RBC Distribution Width SD 45.5 fl (35.1-43.9); Red Blood Count 3.35 M/mm3 (4.2-5.4); White Blood Count 11.6 K/mm3 (4.4-11.0)
[2020-02-15 06:29] LABS: Anion Gap 6 (5-15); BUN 16 mg/dL (7-18); BUN/Creat Ratio 22.3 RATIO (10-20); Chloride 103 mmol/L (98-107); Creatinine, Serum 0.72 mg/dL (0.55-1.02); EST Glomerular Filtration Rate 87 mL/min (>60); Est Glom Filt Rate - Afr Amer 105 mL/min (>60); Estimated Creatinine Clearance 72.92 ml/min; Glucose 74 mg/dL (74-106); Magnesium 1.6 mg/dL (1.6-2.6); Potassium 3.3 mmol/L (3.5-5.1); Sodium Level 136 mmol/L (136-145)
[2020-02-15] MEDS: Ipratropium/Albuterol Sulfate 3 ML AMPUL.NEB INHALATION ×2 (07:17→12:27)
--- NOTE | 2020-02-15 07:48 | PN_ITS ---
Patient Problems: Active and Suspected Problems (Last Updated 07/01/17 @ 12:07 by Lisa Ferreira) STEMI (ST elevation myocardial infarction) (Acute) Cardiac arrest (Acute) Torsades de pointes (Acute) Ventricular tachycardia (Acute) NSTEMI (non-ST elevated myocardial infarction) (Acute) Cardiogenic shock (Acute) Reason for Visit: Acute non-STEMI Acute congestive heart failure Subjective: Patient is a 64-year-old lady admitted with chest pain and cardiopulmonary arrest and assessment of acute myocardial infarction (acute non-STEMI) made resuscitated successfully with ACLS and admitted for subsequent inpatient evaluation and management Objective: GENERAL: cooperative HEENT: Atraumatic; EYES; Anicteric, Normal Conjunctiva NECK; supple, normal thyroid, RESPIRATORY: Diminished to auscultation CARDIOVASCULAR: Regular S1 S2, GI: soft, normoactive bowel sounds, : No Renal angle tenderness; EXTREMITIES: No edema, no clubbing, MUSCULOSKELETAL: no muscle waisting NEURO: Awake; no lateralizing signs. SKIN: No Rash PSYCH; Flat affect Vitals/I&O's: Vital Signs Temp Pulse Resp BP Pulse Ox 98.3 F 103 H 20 H 129/76 H 94 02/15/20 03:45 02/15/20 03:45 02/15/20 03:45 02/15/20 03:45 02/15/20 03:45 Oxygen Flow Rate (L/min) 4 Oxygen Delivery Method Nasal Cannula Weight: 64.8 kg Body Mass Index (BMI) 21.9 Finger Stick Blood Glucose 61 Intake and Output for Last 24 Hours 02/13/20 02/14/20 02/15/20 23:59 23:59 23:59 Intake Total 1350 / 1350 1452 / 1812 470 / 470 Output Total 0 / 0 1900 / 2800 1200 / 1200 Balance 1350 / 1350 -448 / -988 -730 / -730 Microbiology Past 72 Hours 02/11/20 02:55 Urine Catheter - [place]aud Urine Culture - Final Culture exhibits no growth. 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 - Final Escherichia coli 02/11/20 03:25 Blood Culture (Wb) - Left Hand Blood Culture - Preliminary No growth in 48 hours. 02/11/20 02:50 Blood Culture (Wb) - Line Draw Blood Culture - Preliminary No growth in 48 hours. Laboratory Results 02/15/20 05:57: WBC 11.6 H, RBC 3.35 L, Hgb 10.4 L, Hct 31.0 L, MCV 92.5, MCH 31.0, MCHC 33.5, RDW Std Deviation 45.5 H, RDW Coeff of Nehemiah 13.5, Plt Count 202, MPV 9.6, Immature Gran % (Auto) 0.700, Neut % (Auto) 69.2, Lymph % (Auto) 18.5 L , [place] % (Auto) 6.7, Eos % (Auto) 4.6, Baso % (Auto) 0.3, Absolute Neuts (auto) 8.1 H, Absolute Lymphs (auto) 2.15, Nucleated RBC % 0 02/15/20 05:57: Sodium 136, Potassium 3.3 L, Chloride 103, Carbon Dioxide 27.0, Anion Gap 6, BUN 16, Creatinine 0.72, Estim Creat Clear Calc 72.92, Est GFR (MDRD) Af Amer 105, Est GFR (MDRD) Non-Af 87, BUN/Creatinine Ratio 22.3 H, Glucose 74, Calcium 8.0 L, Magnesium 1.6 Current Medications Acetaminophen (Acetaminophen 325 Mg Tablet) 650 mg PO Q4H PRN PRN PRN Reason: Pain 1-10 or Fever Last Admin: 02/14/20 04:40 Dose: 650 mg Documented by: Al Hydroxide/Mg Hydroxide (Mag Hydrox/Al Hydrox/Simeth 30 Ml Udc) 30 ml PO Q6H PRN PRN PRN Reason: Gastric Burning Albuterol Sulfate (Albuterol 2.5 Mg/3 Ml Vial.Neb.) 2.5 mg INHALATION Q2H PRN PRN PRN Reason: Dyspnea, wheezing Albuterol/Ipratropium (Ipratropium/Albuterol Sulfate 3 Ml Ampul.Neb) 3 ml INHALATION Q6HWA.RT [facility] Last Admin: 02/15/20 07:17 Dose: 3 ml Documented by: Aspirin (Aspirin 81 Mg Tab.Chew) 81 mg PO DAILY@0800 [facility] Last Admin: 02/14/20 08:38 Dose: 81 mg Documented by: Atorvastatin Calcium (Atorvastatin Calcium 10 Mg Tablet) 10 mg PO QHS [facility] Last Admin: 02/14/20 21:09 Dose: 10 mg Documented by: Enoxaparin Sodium (Enoxaparin 40 Mg/0.4 Ml Syringe) 40 mg SC DAILY@0600 [facility] Last Admin: 02/15/20 05:00 Dose: 40 mg Documented by: Furosemide (Furosemide 40 Mg/4 Ml Vial) 40 mg IV BID@1000,1800 [facility] Last Admin: 02/14/20 17:16 Dose: 40 mg Documented by: Hydralazine HCl (Hydralazine 20 Mg/Ml Vial) 10 mg IV Q4H PRN PRN PRN Reason: SBP > 160 Hydrocortisone (Hydrocortisone 10 Mg Tablet) 20 mg PO DAILY@0800 [facility] Last Admin: 02/14/20 17:15 Dose: 20 mg Documented by: Hydrocortisone (Hydrocortisone 10 Mg Tablet) 10 mg PO DINNER [facility] Last Admin: 02/14/20 17:15 Dose: 10 mg Documented by: Sodium Chloride () 250 mls @ 15 mls/hr IV .[id number] PRN PRN Reason: Saline Flush Last Infusion: 02/14/20 04:30 Dose: 0 mls/hr Documented by: Sodium Chloride () 250 mls @ 15 mls/hr IV .[id number] PRN PRN Reason: Additional IVPB Infusion Piperacillin Sod/Tazobactam (Sod 3.375 gm/ Sodium Chloride) 50 mls @ 12.5 mls/hr IV Q8 [facility] Last Admin: 02/15/20 04:59 Dose: 12.5 mls/hr Documented by: Magnesium Sulfate 2 gm/ Sodium (Chloride) 104 mls @ 52 mls/hr IV X1 ONE Stop: 02/15/20 08:52 Last Admin: 02/15/20 07:04 Dose: 52 mls/hr Documented by: Lisinopril (Lisinopril 5 Mg Tablet) 5 mg PO DAILY [facility] Last Admin: 02/14/20 08:37 Dose: 5 mg Documented by: Lorazepam (Lorazepam 0.5 Mg Tablet) 0.5 mg PO Q8H PRN PRN Reason: ANXIETY Last Admin: 02/14/20 17:15 Dose: 0.5 mg Documented by: Lorazepam (Lorazepam 1 Mg Tablet) 1 mg PO QHS PRN PRN PRN Reason: ANXIETY Last Admin: 02/14/20 22:18 Dose: 1 mg Documented by: Magnesium Hydroxide (Magnesium Hydroxide 30 Ml Udc) 30 ml PO DAILY PRN PRN PRN Reason: Constipation Metoprolol Succinate (Metoprolol(Xl)Succ 25 Mg Tablet) 25 mg PO DAILY [facility] Last Admin: 02/14/20 08:37 Dose: 25 mg Documented by: Nitroglycerin (Nitroglycerin (Inpatient Use) 0.4 Mg Tab.Subl) 0.4 mg SUBLINGUAL Q5M PRN PRN Reason: CARDIAC/CHEST PAIN Ondansetron HCl (Ondansetron 4 Mg/2 Ml Vial) 4 mg IV Q8H PRN PRN PRN Reason: NAUSEA/VOMITING Last Admin: 02/11/20 10:10 Dose: 4 mg Documented by: Oxycodone HCl (Oxycodone 5 Mg Tablet) 5 mg PO Q4H PRN PRN PRN Reason: Pain Score 6-10 Last Admin: 02/14/20 21:09 Dose: 5 mg Documented by: Pantoprazole Sodium (Pantoprazole Sodium 40 Mg Tablet) 40 mg PO DAILY [facility] Last Admin: 02/14/20 08:37 Dose: 40 mg Documented by: Potassium Chloride (Potassium Chloride 20 Meq Tablet) 40 meq PO BIDCM [facility] Last Admin: 02/15/20 07:05 Dose: 40 meq Documented by: Prochlorperazine Edisylate (Prochlorperazine 10 Mg/2 Ml Vial) 5 mg IV Q4H PRN PRN PRN Reason: Breakthrough Nausea/Vomiting Psyllium Hydrophilic Mucilloid (Psyllium 1 Packet) 1 packet PO DAILY PRN PRN PRN Reason: Constipation Senna/Docusate Sodium (Senna/Docusate Sodium 1 Tablet) 2 tablet PO BID PRN PRN Reason: Constipation Sodium Chloride (Sodium Cl For Inhalation 15 Ml Vial.Neb.) 5 ml INHALATION Q5M PRN PRN Reason: Suctioning Sodium Chloride (0.9% Saline Lock 10 Ml Syringe) 10 - 40 ml IV UD PRN PRN Reason: Multilumen/Warren Flush Last Admin: 02/13/20 08:10 Dose: 30 ml Documented by: Sodium Chloride (0.9 % Nacl (Sterile) Posiflush 10 Ml) 10 - 40 ml IV UD PRN PRN Reason: Port access or dressing change Sodium Chloride (0.9% Saline Lock 10 Ml Syringe) 10 - 40 ml IV UD PRN PRN Reason: SALINE FLUSH Throat Lozenges (Benzocaine/Menthol 1 Lozenge) 1 lozenge MUCOUS MEM Q2H PRN PRN PRN Reason: SORE THROAT Ticagrelor (Ticagrelor 90 Mg Tablet) 90 mg PO BID [facility] Last Admin: 02/14/20 21:09 Dose: 90 mg Documented by: Medical Necessity - Tobacco Use Smoking Status: Current every day smoker Tobacco Use: Cigarettes Assessment/Plan All Active Problems (Last Updated 07/01/17 @ 12:07 by Lisa Ferreira) STEMI (ST elevation myocardial infarction) (Acute) Cardiac arrest (Acute) Torsades de pointes (Acute) Ventricular tachycardia (Acute) NSTEMI (non-ST elevated myocardial infarction) (Acute) Cardiogenic shock (Acute) Patient is a 64-year-old lady admitted with chest pain and cardiopulmonary arrest and assessment of acute myocardial infarction (acute non-STEMI) made resuscitated successfully with ACLS and admitted for subsequent inpatient evaluation and management 1. Acute non-STEMI ?Patient presented with cardiopulmonary arrest underwent successful left heart catheterization with PCI to SVG to OM Coronary artery disease ?With previous CABG 3. Cardiogenic shock ?Resolved 4. Acute congestive heart failure with reduced ejection fraction EF estimated to be 40%. Patient started on Lasix in addition to beta-blockers and ANGIE inhibitors 5. Torsade de pointes -Post cardiac arrest 6. Acute on chronic hypoxic respiratory failure ?Patient was intubated on admission extubated on 02/11/2020. 7. COPD ?Aerosol treatments as needed 8. Adrenal insufficiency ?Resume patient home steroids 9. DVT prophylaxis ?Lovenox 10. Hypokalemia ?Corrected per protocol Inpatient E&M: 08240 Subs Hosp L2
[2020-02-15] MEDS: Aspirin 81 MG TAB.CHEW PO (09:40)
[2020-02-15] MEDS: Ketorolac 15 MG/ML Vial IM (09:41)
[2020-02-15] MEDS: TICAGRELOR 90 MG TABLET PO (09:42)
[2020-02-15] MEDS: Metoprolol(XL)Succ 25 MG Tablet PO (09:43)
[2020-02-15] MEDS: Furosemide 40 MG/4 ML Vial IV (09:43)
[2020-02-15] MEDS: Pantoprazole Sodium 40 MG Tablet PO (09:43)
[2020-02-15] MEDS: Lisinopril 5 MG Tablet PO (09:46)
[2020-02-15] MEDS: oxyCODONE 5 MG Tablet PO (09:46)
[2020-02-15] MEDS: Acetaminophen 325 MG Tablet 650 MG PO (09:47)
--- NOTE | 2020-02-15 10:06 | PN.CARD_ITS ---
Subjectve: Patient seen and evaluated. Appears to be doing well. Continues to complain of musculoskeletal pain on her chest from the CPR. Objective: Vital Signs Temp Pulse Resp BP Pulse Ox 97.5 F L 63 18 116/73 97 02/15/20 09:55 02/15/20 09:55 02/15/20 09:55 02/15/20 09:55 02/15/20 09:55 Oxygen Flow Rate (L/min) 4 Oxygen Delivery Method Room Air Weight: 142 lb 13.753 oz Body Mass Index (BMI) 21.9 Finger Stick Blood Glucose 61 Intake and Output for Last 24 Hours 02/13/20 02/14/20 02/15/20 23:59 23:59 23:59 Intake Total 1350 / 1350 1452 / 1812 470 / 470 Output Total 0 / 0 1900 / 2800 1200 / 1200 Balance 1350 / 1350 -448 / -988 -730 / -730 General: Awake, Alert, Oriented x 3 HEENT: PERRL, EOMI, Sclera Non Icteric Neck: Supple, Good ROM, No Lymph Node Enlargement Lungs: Clear to auscultation Cardiovascular: Regular Rhythm, Normal S1, Normal S2, No Murmurs, No Rubs, No Gallops Vascular: No Carotid Bruits, Normal Femoral Pulses, Normal Radial Pulses, Normal Dorsalis Pedal Pulse, Normal Posterior Tibial Pulses Abdomen: Bowel Sounds Present, Soft, Non Tender, No HSM, No Organomegaly Extremities: No Cyanosis, No Clubbing, No edema Musculoskeletal: No Erythema Skin: No Rashes Lymphatic: No Lymph Node Enlargement Neurological: No Focal Motor or Sensory Deficit 02/15/20 05:57: WBC 11.6 H, RBC 3.35 L, Hgb 10.4 L, Hct 31.0 L, MCV 92.5, MCH 31.0, MCHC 33.5, Plt Count 202, MPV 9.6, Immature Gran % (Auto) 0.700, Neut % (Auto) 69.2, Lymph % (Auto) 18.5 L, [place] % (Auto) 6.7, Eos % (Auto) 4.6, Baso % (Auto) 0.3, Absolute Neuts (auto) 8.1 H, Nucleated RBC % 0 02/15/20 05:57: Sodium 136, Potassium 3.3 L, Chloride 103, Carbon Dioxide 27.0, Anion Gap 6, BUN 16, Creatinine 0.72, Est GFR (MDRD) Af Amer 105, Est GFR (MDRD) Non-Af 87, BUN/Creatinine Ratio 22.3 H, Glucose 74, Calcium 8.0 L, Magnesium 1.6 Rhythm: EKG: ECHO: Stress Test: Cardiac Cath: PCI: CT Surgery: Holter monitor: EPS: PPM: CXR: Chest CT Scan: Medical Necessity - Tobacco Use Smoking Status: Current every day smoker Tobacco Use: Cigarettes Assessment/Plan 1. ST elevation RI: * Status post PCI to SVG to OM. Continue aspirin, statin, Brilinta, beta-blocke r and ANGIE inhibitor. Overall she appears to doing better at this time. Would recommend that she follow-up in the office with a consideration for cardiac rehabilitation. 2. Coronary artery disease: Patient's angiogram was reviewed. Her bypass surgery report was also reviewed. KENNY was used as a free pedicle to the LAD. This was not visualized during the procedure done as an emergency yesterday. The LAD is occluded/subtotally occluded. Faint filling of the LAD is noted at the time of LV gram and is likely through the KENNY. The anterior wall is also moving well. Her ejection fraction was noted to be approximately 40% most likely the KENNY to LAD is patent. As an outpatient if patient continues to have anginal symptoms we can repeat the angiography. * 3. CHF: Patient responded well to IV Lasix. * Will switch to p.o. Lasix * Add potassium supplementation * * Patient can be discharged for outpatient follow-up. To follow-up with me in 2 to 4 weeks in my office. * * Thank you for allowing me to participate in the care of your patient. Please don't hesitate to call if any issues arise.
--- NOTE | 2020-02-15 10:23 | DCINST_ITS ---
- Discharge Diagnoses Current Active Problems: Current Active and Chronic Problems (Last Updated 07/01/17 @ 12:07 by Lisa Ferreira) STEMI (ST elevation myocardial infarction) (Acute) Cardiac arrest (Acute) Torsades de pointes (Acute) Ventricular tachycardia (Acute) Chronic obstructive pulmonary disease (COPD) (Chronic) Tobacco use (Chronic) NSTEMI (non-ST elevated myocardial infarction) (Acute) Cardiogenic shock (Acute) Aortocoronary bypass status (Chronic ~09/24/13) CABG x 3- KENNY to LAD, SVG to OM, SVG to distal right 09/24/13 Peripheral vascular insufficiency (Chronic) History of myocardial infarction (Chronic) Atherosclerotic heart disease of [place] coronary artery without angina pectoris (Chronic) CABG x 3- KENNY to LAD, SVG to OM, SVG to distal right 09/24/13; Stent assisted PTCA of prox LAD and cutting balloon 11/06/02; PTCA/Stent of the CX 09/18/13 Hyperlipidemia (Chronic) Hypertension (Chronic) You will use the following diet at home:: Cardiac Your food should be the consistency of: Regular Discharge Activity: Return to Normal Activity Allergies/Adverse Reactions: Allergies atorvastatin Adverse Reaction (Severe, Verified 07/25/18 09:16) Myalgias hydrocodone Adverse Reaction (Verified 07/25/18 09:16) Itching hydrocodone bitartrate [From Vicodin] Adverse Reaction (Verified 07/25/18 09:16) Itching oxycodone HCl [From Percocet] Adverse Reaction (Verified 07/25/18 09:16) Itching Medications to take at Discharge Aspirin [Aspirin, Baby] 81 mg PO DAILY 02/17/13 Lorazepam [Ativan] 1 mg PO QHS 07/25/18 Hydrocortisone [Cortef] 10 mg PO QHS 02/11/20 Hydrocortisone [Cortef] 20 mg PO DAILY 02/11/20 Acetaminophen [Tylenol Tablet] 650 mg PO Q4H PRN PRN tablet 02/15/20 Albuterol Sulfate [Albuterol Sulfate HFA] 2 puff IH Q4H PRN PRN #1 inhaler 02/15/20 Amoxicillin/Potassium Clav [Augmentin 875-125 Tablet] 1 ea PO BID #14 tab 02/15/20 Atorvastatin Calcium [Lipitor] 10 mg PO QHS #90 tab 02/15/20 Furosemide [Lasix] 40 mg PO DAILY #90 tab 02/15/20 Lisinopril [Zestril] 5 mg PO DAILY #90 tab 02/15/20 Metoprolol(XL)Succ [Toprol Xl (Beta Herminia)] 25 mg PO DAILY #90 tab 02/15/20 Potassium Chloride [K-Dur] 20 meq PO BIDCM #60 tab 02/15/20 Ticagrelor [Brilinta] 90 mg PO BID #90 tab 02/15/20 The following prescriptions were given: Albuterol Sulfate [Albuterol Sulfate HFA] 2 puff IH Q4H PRN PRN #1 inhaler PRN Reason: Dyspnea/Wheezing/Sob Transmission Status: Pending to [facility] Amoxicillin/Potassium Clav [Augmentin 875-125 Tablet] 1 ea PO BID #14 tab Transmission Status: Pending to [facility] Ticagrelor [Brilinta] 90 mg PO BID #90 tab Transmission Status: Pending to [facility] Potassium Chloride [K-Dur] 20 meq PO BIDCM #60 tab Transmission Status: Pending to [facility] Furosemide [Lasix] 40 mg PO DAILY #90 tab Transmission Status: Pending to [facility] Atorvastatin Calcium [Lipitor] 10 mg PO QHS #90 tab Transmission Status: Pending to [facility] Metoprolol(XL)Succ [Toprol Xl (Beta Herminia)] 25 mg PO DAILY #90 tab Transmission Status: Pending to [facility] Lisinopril [Zestril] 5 mg PO DAILY #90 tab Transmission Status: Pending to [facility] Primary Care Physician: Harvey Chow MD [Primary Care Provider] - Please follow up with your Primary Care Physician in: in 1 to 2 weeks Test Results: Test results from this visit will be discussed in further detail at your follow- up appointment, if applicable. Please Follow Up With: Braeden Nino MD Proposed Discharge Date: 02/15/20
--- NOTE | 2020-02-15 10:25 | DS.PCM_ITS ---
Discharge Date and Diagnosis - Problem List Patient Problems: Active and Suspected Problems (Last Updated 07/01/17 @ 12:07 by Lisa Ferreira) Cardiac arrest (Acute) Torsades de pointes (Acute) Ventricular tachycardia (Acute) NSTEMI (non-ST elevated myocardial infarction) (Acute) Cardiogenic shock (Acute) Date of Admission: 02/10/20 Date of Discharge: 02/15/20 - Primary Discharge Diagnosis Acute Problems: Active Problems (Last Updated 07/01/17 @ 12:07 by Lisa Ferreira) Cardiac arrest (Acute) Torsades de pointes (Acute) Ventricular tachycardia (Acute) NSTEMI (non-ST elevated myocardial infarction) (Acute) Cardiogenic shock (Acute) - Secondary Discharge Diagnosis Chronic Problems: Chronic Problems (Last Updated 07/01/17 @ 12:07 by Lisa Ferreira) Chronic obstructive pulmonary disease (COPD) (Chronic) Tobacco use (Chronic) Presence of stent in coronary artery (Chronic) Stent assisted PTCA of prox LAD and cutting balloon 11/06/02; PTCA/Stent of the CX 09/18/13 Aortocoronary bypass status (Chronic ~09/24/13) CABG x 3- KENNY to LAD, SVG to OM, SVG to distal right 09/24/13 Peripheral vascular insufficiency (Chronic) History of myocardial infarction (Chronic) Atherosclerotic heart disease of [place] coronary artery without angina pectoris (Chronic) CABG x 3- KENNY to LAD, SVG to OM, SVG to distal right 09/24/13; Stent assisted PTCA of prox LAD and cutting balloon 11/06/02; PTCA/Stent of the CX 09/18/13 S/P PTCA (percutaneous transluminal coronary angioplasty) (Chronic) Stent assisted PTCA of prox LAD and cutting balloon 11/06/02; PTCA/Stent of the CX 09/18/13 Hyperlipidemia (Chronic) Hypertension (Chronic) Squamous cell carcinoma of left lung (Chronic) Hospital Course and Treatment Imaging Results: Clinical Impression(s) from Imaging Studies Chest X-Ray 02/10/20 14:44 IMPRESSION: 1. Expected appearance of endotracheal and gastric tubes. 2. No acute cardiorespiratory disease. 3. Coronary bypass grafting. Electronically Signed: Ronny Hanson, at 16:18 EST Tel , Service support , Chest X-Ray 02/10/20 19:50 IMPRESSION: IABP with tip projecting over the aortic arch. Otherwise stable. Electronically Signed: Brandon Hernandez MD ([place]) at 20:13 EST , Service support , KUB X-Ray 02/10/20 19:53 IMPRESSION: Right groin IABP. Enteric/gastric tube. Electronically Signed: Brandon Hernandez MD (Brooks) at 20:46 EST , Service support , Chest X-Ray 02/11/20 05:55 IMPRESSION: ET tube at the tip 4.2 cm proximal to the alina NG tube similar Left basilar atelectasis at 0617 Reported and signed by: Jami Seay DO Electronically Signed: Jami Seay DO at 6:16 EST Tel , Service support , Chest X-Ray 02/14/20 08:15 IMPRESSION: Ill-defined subpleural groundglass opacities are seen more prominent in the right upper lobe, may represent atypical pneumonia or viral pneumonia (COVID-19 ?). There is a small right pleural effusion Electronically Signed: Anna Jimenez, at 9:29 EST Tel , Service support , Operations: None Summary of Care Provided: Patient is a 64-year-old lady admitted with chest pain and cardiopulmonary arrest and assessment of acute myocardial infarction (acute non-STEMI) made resuscitated successfully with ACLS and admitted for subsequent inpatient evaluation and management 1. Acute non-STEMI ?Patient presented with cardiopulmonary arrest underwent successful left heart catheterization with PCI to SVG to OM -He was discharged home on recommended medications with plans for patient to follow-up with cardiology as outpatient within 2 to 4 weeks 2. Coronary artery disease ?With previous CABG 3. Cardiogenic shock ?Resolved 4. Acute congestive heart failure with reduced ejection fraction EF estimated to be 40%. Patient started on Lasix in addition to beta-blockers and MARLO inhibitors 5. Torsade de pointes -Post cardiac arrest 6. Acute on chronic hypoxic respiratory failure ?Patient was intubated on admission extubated on 02/11/2020. 7. COPD ?Aerosol treatments as needed 8. Adrenal insufficiency ?Resume patient home steroids 9. DVT prophylaxis ?Lovenox 10. Hypokalemia ?Corrected per protocol 11. Suspected aspiration pneumonia ?Patient was treated with Zosyn discharged home on Augmentin Patient Problems: Active and Suspected Problems (Last Updated 07/01/17 @ 12:07 by Lisa Ferreira) Cardiac arrest (Acute) Torsades de pointes (Acute) Ventricular tachycardia (Acute) NSTEMI (non-ST elevated myocardial infarction) (Acute) Cardiogenic shock (Acute) - Physical Exam Vitals/I&O's: Vital Signs Temp Pulse Resp BP Pulse Ox 97.5 F L 63 18 116/73 97 02/15/20 09:55 02/15/20 09:55 02/15/20 09:55 02/15/20 09:55 02/15/20 09:55 Oxygen Flow Rate (L/min) 4 Oxygen Delivery Method Room Air Weight: 64.8 kg Body Mass Index (BMI) 21.9 Finger Stick Blood Glucose 61 Intake and Output for Last 24 Hours 02/13/20 02/14/20 02/15/20 23:59 23:59 23:59 Intake Total 1350 / 1350 1452 / 1812 624 / 624 Output Total 0 / 0 1900 / 2800 1200 / 1200 Balance 1350 / 1350 -448 / -988 -576 / -576 General: Alert Lungs: Diminished Extremities: No clubbing, No cyanosis Neurological: Neuro grossly intact Psych/Mental Status: Normal Affect Microbiology Past 72 Hours 02/11/20 02:55 Urine Catheter - [place] Urine Culture - Final Culture exhibits no growth. 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 - Final Escherichia coli 02/11/20 03:25 Blood Culture (Wb) - Left Hand Blood Culture - Preliminary No growth in 48 hours. 02/11/20 02:50 Blood Culture (Wb) - Line Draw Blood Culture - Preliminary No growth in 48 hours. Laboratory Results 02/15/20 05:57: WBC 11.6 H, RBC 3.35 L, Hgb 10.4 L, Hct 31.0 L, MCV 92.5, MCH 31.0, MCHC 33.5, RDW Std Deviation 45.5 H, RDW Coeff of Nehemiah 13.5, Plt Count 202, MPV 9.6, Immature Gran % (Auto) 0.700, Neut % (Auto) 69.2, Lymph % (Auto) 18.5 L , [place] % (Auto) 6.7, Eos % (Auto) 4.6, Baso % (Auto) 0.3, Absolute Neuts (auto) 8.1 H, Absolute Lymphs (auto) 2.15, Nucleated RBC % 0 02/15/20 05:57: Sodium 136, Potassium 3.3 L, Chloride 103, Carbon Dioxide 27.0, Anion Gap 6, BUN 16, Creatinine 0.72, Estim Creat Clear Calc 72.92, Est GFR (MDRD) Af Amer 105, Est GFR (MDRD) Non-Af 87, BUN/Creatinine Ratio 22.3 H, Glucose 74, Calcium 8.0 L, Magnesium 1.6 Current Medications Acetaminophen (Acetaminophen 325 Mg Tablet) 650 mg PO Q4H PRN PRN PRN Reason: Pain 1-10 or Fever Last Admin: 02/15/20 09:47 Dose: 650 mg Documented by: Al Hydroxide/Mg Hydroxide (Mag Hydrox/Al Hydrox/Simeth 30 Ml Udc) 30 ml PO Q6H PRN PRN PRN Reason: Gastric Burning Albuterol Sulfate (Albuterol 2.5 Mg/3 Ml Vial.Neb.) 2.5 mg INHALATION Q2H PRN PRN PRN Reason: Dyspnea, wheezing Albuterol/Ipratropium (Ipratropium/Albuterol Sulfate 3 Ml Ampul.Neb) 3 ml INHALATION Q6HWA.RT [facility] Last Admin: 02/15/20 07:17 Dose: 3 ml Documented by: Aspirin (Aspirin 81 Mg Tab.Chew) 81 mg PO DAILY@0800 [facility] Last Admin: 02/15/20 09:40 Dose: 81 mg Documented by: Atorvastatin Calcium (Atorvastatin Calcium 10 Mg Tablet) 10 mg PO QHS [facility] Last Admin: 02/14/20 21:09 Dose: 10 mg Documented by: Enoxaparin Sodium (Enoxaparin 40 Mg/0.4 Ml Syringe) 40 mg SC DAILY@0600 [facility] Last Admin: 02/15/20 05:00 Dose: 40 mg Documented by: Furosemide (Furosemide 40 Mg Tablet) 40 mg PO BID@1000,1800 [facility] Hydralazine HCl (Hydralazine 20 Mg/Ml Vial) 10 mg IV Q4H PRN PRN PRN Reason: SBP > 160 Hydrocortisone (Hydrocortisone 10 Mg Tablet) 20 mg PO DAILY@0800 [facility] Last Admin: 02/14/20 17:15 Dose: 20 mg Documented by: Hydrocortisone (Hydrocortisone 10 Mg Tablet) 10 mg PO DINNER [facility] Last Admin: 02/14/20 17:15 Dose: 10 mg Documented by: Sodium Chloride () 250 mls @ 15 mls/hr IV .[id number] PRN PRN Reason: Saline Flush Last Infusion: 02/15/20 10:18 Dose: Infused Documented by: Sodium Chloride () 250 mls @ 15 mls/hr IV .[id number] PRN PRN Reason: Additional IVPB Infusion Piperacillin Sod/Tazobactam (Sod 3.375 gm/ Sodium Chloride) 50 mls @ 12.5 mls/hr IV Q8 [facility] Last Infusion: 02/15/20 10:14 Dose: Infused Documented by: Lisinopril (Lisinopril 5 Mg Tablet) 5 mg PO DAILY [facility] Last Admin: 02/15/20 09:46 Dose: 5 mg Documented by: Lorazepam (Lorazepam 0.5 Mg Tablet) 0.5 mg PO Q8H PRN PRN Reason: ANXIETY Last Admin: 02/14/20 17:15 Dose: 0.5 mg Documented by: Lorazepam (Lorazepam 1 Mg Tablet) 1 mg PO QHS PRN PRN PRN Reason: ANXIETY Last Admin: 02/14/20 22:18 Dose: 1 mg Documented by: Magnesium Hydroxide (Magnesium Hydroxide 30 Ml Udc) 30 ml PO DAILY PRN PRN PRN Reason: Constipation Metoprolol Succinate (Metoprolol(Xl)Succ 25 Mg Tablet) 25 mg PO DAILY [facility] Last Admin: 02/15/20 09:43 Dose: 25 mg Documented by: Nitroglycerin (Nitroglycerin (Inpatient Use) 0.4 Mg Tab.Subl) 0.4 mg SUBLINGUAL Q5M PRN PRN Reason: CARDIAC/CHEST PAIN Ondansetron HCl (Ondansetron 4 Mg/2 Ml Vial) 4 mg IV Q8H PRN PRN PRN Reason: NAUSEA/VOMITING Last Admin: 02/11/20 10:10 Dose: 4 mg Documented by: Oxycodone HCl (Oxycodone 5 Mg Tablet) 5 mg PO Q4H PRN PRN PRN Reason: Pain Score 6-10 Last Admin: 02/15/20 09:46 Dose: 5 mg Documented by: Pantoprazole Sodium (Pantoprazole Sodium 40 Mg Tablet) 40 mg PO DAILY [facility] Last Admin: 02/15/20 09:43 Dose: 40 mg Documented by: Potassium Chloride (Potassium Chloride 20 Meq Tablet) [facility] Last Admin: 02/15/20 09:40 Dose: 40 meq Documented by: Prochlorperazine Edisylate (Prochlorperazine 10 Mg/2 Ml Vial) 5 mg IV Q4H PRN PRN PRN Reason: Breakthrough Nausea/Vomiting Psyllium Hydrophilic Mucilloid (Psyllium 1 Packet) 1 packet PO DAILY PRN PRN PRN Reason: Constipation Senna/Docusate Sodium (Senna/Docusate Sodium 1 Tablet) 2 tablet PO BID PRN PRN Reason: Constipation Sodium Chloride (Sodium Cl For Inhalation 15 Ml Vial.Neb.) 5 ml INHALATION Q5M PRN PRN Reason: Suctioning Sodium Chloride (0.9% Saline Lock 10 Ml Syringe) 10 - 40 ml IV UD PRN PRN Reason: Multilumen/[place] Flush Last Admin: 02/13/20 08:10 Dose: 30 ml Documented by: Sodium Chloride (0.9 % Nacl (Sterile) Posiflush 10 Ml) 10 - 40 ml IV UD PRN PRN Reason: Port access or dressing change Sodium Chloride (0.9% Saline Lock 10 Ml Syringe) 10 - 40 ml IV UD PRN PRN Reason: SALINE FLUSH Throat Lozenges (Benzocaine/Menthol 1 Lozenge) 1 lozenge MUCOUS MEM Q2H PRN PRN PRN Reason: SORE THROAT Ticagrelor (Ticagrelor 90 Mg Tablet) 90 mg PO BID ANTONIO Last Admin: 02/15/20 09:42 Dose: 90 mg Documented by: Discharge Diet: Low fat/ Low Cholesterol Discharge Activity: Return to Normal Activity Home Medications: Medications to take at Discharge Aspirin [Aspirin, Baby] 81 mg PO DAILY 02/17/13 Lorazepam [Ativan] 1 mg PO QHS 07/25/18 Hydrocortisone [Cortef] 10 mg PO QHS 02/11/20 Hydrocortisone [Cortef] 20 mg PO DAILY 02/11/20 Acetaminophen [Tylenol Tablet] 650 mg PO Q4H PRN PRN tablet 02/15/20 Albuterol Sulfate [Albuterol Sulfate HFA] 2 puff IH Q4H PRN PRN #1 inhaler 02/15/20 Amoxicillin/Potassium Clav [Augmentin 875-125 Tablet] 1 ea PO BID #14 tab 02/15/20 Atorvastatin Calcium [Lipitor] 10 mg PO QHS #90 tab 02/15/20 Furosemide [Lasix] 40 mg PO DAILY #90 tab 02/15/20 Lisinopril [Zestril] 5 mg PO DAILY #90 tab 02/15/20 Metoprolol(XL)Succ [Toprol Xl (Beta Herminia)] 25 mg PO DAILY #90 tab 02/15/20 Potassium Chloride [K-Dur] 20 meq PO BIDCM #60 tab 02/15/20 Ticagrelor [Brilinta] 90 mg PO BID #90 tab 02/15/20 Following Prescriptions Were Given to Patient: Albuterol Sulfate [Albuterol Sulfate HFA] 2 puff IH Q4H PRN PRN #1 inhaler PRN Reason: Dyspnea/Wheezing/Sob Transmission Status: Pending to [facility] Amoxicillin/Potassium Clav [Augmentin 875-125 Tablet] 1 ea PO BID #14 tab Transmission Status: Pending to [facility] Ticagrelor [Brilinta] 90 mg PO BID #90 tab Transmission Status: Pending to [facility] Potassium Chloride [K-Dur] 20 meq PO BIDCM #60 tab Transmission Status: Pending to [facility] Furosemide [Lasix] 40 mg PO DAILY #90 tab Transmission Status: Pending to [facility] Atorvastatin Calcium [Lipitor] 10 mg PO QHS #90 tab Transmission Status: Pending to [facility] Metoprolol(XL)Succ [Toprol Xl (Beta Herminia)] 25 mg PO DAILY #90 tab Transmission Status: Pending to [facility] Lisinopril [Zestril] 5 mg PO DAILY #90 tab Transmission Status: Pending to [facility] Primary Care Physician: Harvey Chow MD [Primary Care Provider] - Please follow up with your Primary Care Physician in: in 1 to 2 weeks Please Follow Up With: Braeden Nino MD Disposition: Home Minutes spent on discharge:: 45 Patient Condition:: Stable Medical Necessity - Tobacco Use Smoking Status: Current every day smoker Tobacco Use: Cigarettes Meaningful Use Info Meaningful Use Diagnoses (Choose all that apply): AMI, CHF - AMI/Post PCI/Angioplasty Aspirin given w/in 24hrs of arrival?: Yes ASA at discharge?: Yes Antiplatelet Therapy at Discharge:: Yes Statins at discharge?: Yes Marlo/ARB at discharge?: Yes Beta Herminia at discharge?: Yes Done w/ Acute PA measure.: Yes Documented LVEF (%): 40 - CHF MARLO/ARB ordered at discharge?: Yes Documented LVEF (%): 40 Inpatient E&M: 50043 Disch Hosp
--- NOTE | 2020-02-15 11:28 | NURSING ---
PICC line removed at this time. Tip intact. Pt tolerated well. Left in bed and instructed to stay in bed for 30 minutes.
--- NOTE | 2020-02-15 14:04 | NURSING ---
Pt discharged home into the care of family. KADEN zendejas instruction and rxs given to patient. Pt will require 2 L of O2 at rest and 4L when ambulating. Pt has home O2 already so updated rx sent to [facility].
== END 2020-02-15 13:06 | disposition home health service (06) | DRG 246 ==
LOC: ED 14:49 → ICU 15:32 → PCU 02-14 09:14
PROVIDERS: Emergency Medicine; Family Medicine; Hospitalist; Internal Medicine Critical Care Medicine; Admitting Provider Internal Medicine Cardiovascular Disease; Emergency Provider Student in an Organized Health Care Education/Training Program; PCP Family Medicine; Referring Provider Internal Medicine Cardiovascular Disease; Visit Provider Internal Medicine
DX: I21.4 Non-ST elevation (NSTEMI) myocardial infarction (principal); J96.21 Acute and chronic respiratory failure with hypoxia; I50.21 Acute systolic (congestive) heart failure; I46.2 Cardiac arrest due to underlying cardiac condition; J69.0 Pneumonitis due to inhalation of food and vomit; I47.2 Ventricular tachycardia; E27.40 Unspecified adrenocortical insufficiency; I11.0 Hypertensive heart disease with heart failure; S20.219A Contusion of unspecified front wall of thorax, initial encounter; Y65.8 Other specified misadventures during surgical and medical care; Y93.9 Activity, unspecified; Y92.239 Unspecified place in hospital as the place of occurrence of the external cause; I25.10 Atherosclerotic heart disease of native coronary artery without angina pectoris; E87.6 Hypokalemia; J44.9 Chronic obstructive pulmonary disease, unspecified; I48.91 Unspecified atrial fibrillation; I73.9 Peripheral vascular disease, unspecified; I25.2 Old myocardial infarction; E78.5 Hyperlipidemia, unspecified; F41.9 Anxiety disorder, unspecified; Z85.118 Personal history of other malignant neoplasm of bronchus and lung; Z95.1 Presence of aortocoronary bypass graft; Z87.19 Personal history of other diseases of the digestive system; F17.210 Nicotine dependence, cigarettes, uncomplicated; Z79.82 Long term (current) use of aspirin; Z79.899 Other long term (current) drug therapy
CPT/HCPCS: 31500; 33967; 36569; 71045; 74018; 80048; 80053; 80061; 81001; 82550; 82803; 82962; 83036; 83735; 84145; 84478; 84484; 85014; 85018; 85025; 85347; 85610; 85730; 86850; 86900; 86901; 87040; 87070; 87077; 87086; 87186; 87205; 87635; 92937; 92950; 93005; 93306; 93458; 94002; 94003; 94640; 94660; 94667; 94668; 97162; 97166; 97530; 97535; 97803; 99152; 99153; 99251; 99283; 99406; J7030; J7040; J7050; Q9957; Q9967; A4216; C1725; C1757; C1769; C1874; C1884; C1887; C1894; C8929; C9604; G0463; J1940; J2405; J3010; J3475; U0002

== ENCOUNTER 2020-02-16 16:23 | Inpatient (IN) | payer MEDICARE, MEDICAID, SELFPAY ==
[2020-02-10 20:00] VITALS: BMI 21.9
[2020-02-16] VITALS (20 sets, daily range): BP systolic 66–120; BP diastolic 44–87; PULSE 88–129; RESP 12–36; TEMP 36–39.4; O2SAT 92–100; BMI 24.6; BMI 24.7
--- NOTE | 2020-02-16 16:41 | EKG12_ITS ---
Test Reason : SOB Blood Pressure : / mmHG Vent. Rate : 132 BPM Atrial Rate : 132 BPM P-R Int : 114 ms QRS Dur : 076 ms QT Int : 288 ms P-R-T Axes : 068 087 075 degrees QTc Int : 426 ms Sinus tachycardia Nonspecific ST abnormality Abnormal ECG Confirmed by NOAH BUSTILLOS, JASMEET ([id number]), acquisition editor KENROY HICKS ([id number]) on 02/18/2020 8:47:41 AM Referred By: Nelida Vargas Confirmed By:JASMEET ZAMORA MD
[2020-02-16] MEDS: 0.9% Normal Saline 1,000 ML 999 ML IV ×4 (16:51→21:05)
[2020-02-16] MEDS: Acetaminophen 500 MG Tablet 1000 MG PO (16:51)
--- NOTE | 2020-02-16 16:51 | ED.VISSUMM ---
- ER Visit Summary Date of Service: 02/16/20 Chief Complaint: Cough, fever and shortness of breath History of Present Illness: The patient is a 64 F status post recent MA with cardiac arrest and resuscitation. She had a stent placed. She was just hospitalized and discharged. Presents today complaining of shortness of breath and fever. Says she does not feel well at all. Also has had diarrhea. Denies any abdominal pain. Physical Examination: Older female initial blood pressure 70/69 temperature 102.2 heart rate 128. Respiratory rate 34. On her normal 4 L she is 80% hypoxic on 6 L she is 94%. She looks ill. She is tachycardic and hypotensive. She may be septic. HEENT exam pupils round reactive light. Extra motions are intact. No facial trauma. Dry mucous membranes. Neck nontender no JVD no lymphadenopathy. Lungs coarse breath sounds bilaterally. Rhonchorous. Heart tachycardic no murmur rate about 130. Abdomen soft nontender normal bowel sounds no peritoneal signs. Nondistended. No signs of obstruction. Patient is moving all 4 extremities. Calves are nontender without edema or cords. She has normal homemaker companion strength. Normal dorsi plantarflexion. Neurologically she is awake and alert. Answering questions and following commands. Moving all 4 extremities. Test Results: EKG sinus tachycardia rate of 132 with no acute signs of MA or ischemia. No ST elevation. CBC shows an elevated white count of 17,000. Hemoglobin of 10. No bands. Chemistries sodium 132. Normal gap of 10. Creatinine of 1. PT PTT INR normal. UA pending. Troponin is 1.1 but previously it was 180 several days ago. Lactate is 1.9. Chest x-ray shows an obvious right upper lobe pneumonia. Much more impressive than the prior chest x-ray. Emergency Department Course and Treatment: Older female status post recent cardiac arrest with stenting. Presents with shortness of breath and fever. She is hypotensive. Differential would include pneumonia, COVID-19, sepsis versus other etiologies. She will be treated with p.o. Tylenol and IV fluid bolus. She will undergo a septic work-up. She will eventually be admitted. Treatment Plan: Patient received a liter normal saline. She will get a second. Discussed with hospitalist patient be placed in the ICU. Go to be started on vancomycin and Zosyn. We will see how she responds a second liter of fluid. On repeat exam at 7:50 PM. Currently blood pressure 112/57. She is receiving her IV antibiotics. Awaiting the patient to go to the ICU. Disposition: admission Impression: Acute hypotension and fever Acute right upper lobe pneumonia Acute sepsis Critical care time 33 minutes Status post recent MA with cardiac arrest Status post CAD with cardiac stents. This note was generated with Tk20 dictation software. It may contain incorrect words, spelling, and punctuation that were not noted in review of the chart prior to signing ED Disposition - Plan for ED Patient:
[2020-02-16 16:57] LABS: Absolute Lymphocyte Count 2.57 X10^3/uL (0.83-4.51); Absolute Neutrophil Count 13.1 X10^3/uL (2.0-7.7); Basophil# 0.05 X10^3/uL; Basophil% 0.3 % (0-1); Eosinophils% 3.5 % (0-5); Hematocrit 32.3 % (37-47); Hemoglobin 10.7 g/dL (12.0-15.0); Lymphocyte # 2.57 X10^3/ul (4.0); Mean Corp Hgb Conc 33.1 g/dL (32-36); Mean Corpuscular Hgb 30.8 pg (27.0-32.0); Mean Corpuscular Volume 93.1 fL (81-99); Mean Platelet Vol. 10.3 fl (6.2-12.0); Monocyte# 0.67 X10^3/uL; Monocyte% 3.9 % (0-10); NRBC Flagged by Analyzer 0.1 % (0-5); Neutrophil % 76.3 % (47-70); Platelet Count 253 K/mm3 (150-450); RBC Distribution Width CV 13.7 % (11.6-14.6); RBC Distribution Width SD 46.7 fl (35.1-43.9); Red Blood Count 3.47 M/mm3 (4.2-5.4); White Blood Count 17.2 K/mm3 (4.4-11.0)
[2020-02-16 17:06] LABS: International Normalized Ratio 1.2; Partial Thromboplast Time 41.1 Seconds (24.1-36.2); Prothrombin Time (Protime)PT. 15.1 SECONDS (11.7-14.9)
--- NOTE | 2020-02-16 17:20 | RAD_ITS ---
STUDY: X-RAY CHEST REASON FOR EXAM: Female, 64 years old. increased sob. pt was post arrest stemi last week and was dc''d frinow has sob and fever TECHNIQUE: AP COMPARISON: 02/14/2020 FINDINGS: Right arm PICC has been removed. Increasing airspace consolidation involving the right upper lobe. Trace right pleural effusion is similar. Normal size heart. Sternal wires and mediastinal surgical clips compatible with prior CABG. EKG leads project over the chest. Normal visualized pulmonary arteries. Normal visualized aortic arch and descending thoracic aorta. Normal visualized thoracic spine. Normal visualized ribs, clavicles, and shoulders. There is no demonstrated abnormality of the visualized soft tissue structures of the upper abdomen. RAD/Chest 1 View (Portable) IMPRESSION: Worsening right upper lobe pneumonia. Electronically Signed: Brandon Hernandez MD (Brooks) at 17:53 EST , Service support ,
[2020-02-16 17:30] LABS: BNP,B-Type NATRIURETIC PEPTIDE 392.3 pg/mL (0-100)
[2020-02-16 17:30] LABS: Lactic Acid 1.9 mmol/L (0.4-1.9)
[2020-02-16 17:32] LABS: ALB/GLOB Ratio 0.6 RATIO (0.9-2.4); AST(SGOT) 47 U/L (15-37); Alanine Aminotransfer ALT/SGPT 45 U/L (13-56); Albumin, Serum 2.3 g/dL (3.2-5.0); Alkaline Phosphatase 89 U/L (45-117); Anion Gap 10 (5-15); BUN 16 mg/dL (7-18); BUN/Creat Ratio 14.8 RATIO (10-20); Calcium,Total 7.8 mg/dL (8.5-10.1); Chloride 100 mmol/L (98-107); Creatinine, Serum 1.08 mg/dL (0.55-1.02); EST Glomerular Filtration Rate 54 mL/min (>60); Est Glom Filt Rate - Afr Amer 65 mL/min (>60); Estimated Creatinine Clearance 42.96 ml/min; Glucose 81 mg/dL (74-106); Potassium 4.4 mmol/L (3.5-5.1); Protein, Total 6.3 g/dL (6.4-8.2); Sodium Level 132 mmol/L (136-145)
[2020-02-16 17:53] LABS: Color, Urine Amber (Yellow); Glucose, Dipstick Normal (Normal); Ketone-Dipstick 50 mg/dl (Negative); Leukocyte Esterase-Dipstick 25 /ul (Negative); Nitrite-Dipstick Negative (Negative); Occult Blood-Urine 50 /ul (Negative); Protein-Dipstick 30 mg/dl (Negative); Specific Gravity, Urine 1.015 (1.002-1.030); Urine Bilirubin Dipstick Negative (Negative); Urine Clarity Sl. Cloudy (Clear); Urine Urobilinogen Normal (Normal)
[2020-02-16 18:04] LABS: Bacteria RARE /hpf (None Seen); Hyaline Cast 0-5 SEEN /lpf (0-5); Mucous, Urine RARE /hpf (<or=2+); Red Blood Cells-Urine 0-5 SEEN /hpf (0-5); Squamous Epithelial Cells - UA 0-5 SEEN /hpf (5-10); White Blood Cells 0-5 SEEN /hpf (0-5)
--- NOTE | 2020-02-16 20:02 | ED.RN ---
called and spoke with son, Eduardo for pt update.
[2020-02-16] MEDS: Morphine 2 MG/ML Syringe IV (20:35)
--- NOTE | 2020-02-16 20:46 | HP.PCM_ITS ---
History of Present Illness Date of Admission: 02/16/20 Ms. Coronado is a 64 year old F who was recently admitted at [facility] from 02/10/2020 until 02/15/2020, who returns today to the emergency department with cough fever and shortness of breath. Her last hospitalization she was admitted for chest pain and a cardiopulmonary arrest and was diagnosed with an acute NSTEMI for which she underwent PCI to her saphenous vein graft to the OM, cardiogenic shock which had resolved, she had an EF at that time to be noted at 40% and was discharged on Lasix beta-blockers and an ANGIE inhibitor. Her cardiac arrest was secondary to torsade the pointes and she also required intubation for approximately a 24-hour period. It was suspected at discharge she had an aspiration pneumonia and was treated with Zosyn while admitted and discharged with Augmentin. Upon return to the emergency department today she was febrile with a temp of 102.3 hypotensive with a blood pressure of 76/44 which responded to IV fluids she had a respiratory rate anywhere from 22-26 and was requiring 6 L nasal cannula at 97% but had a noted increase in her work of breathing even with that. Her labs showed a worsening white count, stable anemia, mild hyponatremia, mild acute kidney injury with a creatinine of just at discharge of 0.72 and a creatinine today of 1.08. Her troponin was elevated at 1.1 but upon review this is trending down from a troponin of 180 on 02/10/2020. Her EKG shows no acute changes. Her chest x-ray shows a significant right upper lobe infiltrate. She is quite rhonchorous on exam and has somewhat of a weak cough. With her initial blood pressure and potential for respiratory distress she was admitted to the ICU and placed on BiPAP to decrease her work of breathing. The emergency department she was given 3 L of bolus of IV fluids and initiated on antibiotics of vancomycin and Zosyn. Past Medical History Past Medical History (Chronic Problems): Chronic Problems (Last Updated 07/01/17 @ 12:07 by Lisa Ferreira) Chronic obstructive pulmonary disease (COPD) (Chronic) Tobacco use (Chronic) Presence of stent in coronary artery (Chronic) Stent assisted PTCA of prox LAD and cutting balloon 11/06/02; PTCA/Stent of the CX 09/18/13 Aortocoronary bypass status (Chronic ~09/24/13) CABG x 3- KENNY to LAD, SVG to OM, SVG to distal right 09/24/13 Peripheral vascular insufficiency (Chronic) History of myocardial infarction (Chronic) Atherosclerotic heart disease of [place] coronary artery without angina pectoris (Chronic) CABG x 3- KENNY to LAD, SVG to OM, SVG to distal right 09/24/13; Stent assisted PTCA of prox LAD and cutting balloon 11/06/02; PTCA/Stent of the CX 09/18/13 S/P PTCA (percutaneous transluminal coronary angioplasty) (Chronic) Stent assisted PTCA of prox LAD and cutting balloon 11/06/02; PTCA/Stent of the CX 09/18/13 Hyperlipidemia (Chronic) Hypertension (Chronic) Squamous cell carcinoma of left lung (Chronic) Medical History: Medical History (Last Updated 07/01/17 @ 12:07 by Lisa Ferreira) Peripheral vascular insufficiency (Chronic) I73.9 History of myocardial infarction (Chronic) I25.2 Atherosclerotic heart disease of [place] coronary artery without angina pectoris (Chronic) I25.10 CABG x 3- KENNY to LAD, SVG to OM, SVG to distal right 09/24/13; Stent assisted PTCA of prox LAD and cutting balloon 11/06/02; PTCA/Stent of the CX 09/18/13 Hyperlipidemia (Chronic) E78.5 Hypertension (Chronic) I10 Squamous cell carcinoma of left lung (Chronic) C34.92 History of GI bleed Z87.19 COPD (chronic obstructive pulmonary disease) J44.9 Tobacco abuse Z72.0 Hypotension (Inactive) I95.9 Left shoulder pain (Inactive) M25.512 Shock (Inactive) R57.9 Allergies atorvastatin Adverse Reaction (Severe, Verified 02/16/20 16:30) Myalgias hydrocodone Adverse Reaction (Verified 02/16/20 16:30) Itching hydrocodone bitartrate [From Vicodin] Adverse Reaction (Verified 02/16/20 16:30) Itching oxycodone HCl [From Percocet] Adverse Reaction (Verified 02/16/20 16:30) Itching Home Medications: Ambulatory Orders Medication Instructions Recorded Aspirin [Aspirin, Baby] 81 mg PO DAILY 02/17/13 Lorazepam [Ativan] 1 mg PO QHS 07/25/18 Hydrocortisone [Cortef] 10 mg PO QHS 02/11/20 Hydrocortisone [Cortef] 20 mg PO DAILY 02/11/20 Acetaminophen [Tylenol Tablet] 650 mg PO Q4H PRN PRN tab 02/15/20 Albuterol Sulfate [Albuterol 2 puff IH Q4H PRN PRN #1 inhaler 02/15/20 Sulfate HFA] Oxycodone [Oxyir] 5 mg PO Q4H PRN PRN 3 Days #15 tab 02/15/20 Amoxicillin/Potassium Clav 1 ea PO BID 02/16/20 [Augmentin 875-125 Tablet] Atorvastatin Calcium [Lipitor] 10 mg PO QHS 02/16/20 Furosemide [Lasix] 40 mg PO DAILY 02/16/20 Lisinopril [Zestril] 5 mg PO DAILY 02/16/20 Metoprolol(XL)Succ [Toprol Xl 25 mg PO DAILY 02/16/20 (Beta Herminia)] Potassium Chloride [K-Dur] 20 meq PO BIDCM 02/16/20 Ticagrelor [Brilinta] 90 mg PO BID 02/16/20 Surgical History: Surgical History (Last Updated 07/01/17 @ 12:07 by Lisa Ferreira) Presence of stent in coronary artery (Chronic) Z95.5 Stent assisted PTCA of prox LAD and cutting balloon 11/06/02; PTCA/Stent of the CX 09/18/13 Aortocoronary bypass status (Chronic) Onset Date: ~09/24/13 Z95.1 CABG x 3- KENNY to LAD, SVG to OM, SVG to distal right 09/24/13 S/P PTCA (percutaneous transluminal coronary angioplasty) (Chronic) Z98.61 Stent assisted PTCA of prox LAD and cutting balloon 11/06/02; PTCA/Stent of the CX 09/18/13 Surgical History: angioplasty - CABG x 3 and PCI., appendectomy, - - BLTL Psychiatric History: Anxiety [employer] History: No pertinent [employer] history Smoking Status: Current every day smoker - *Family History Offspring Family History: Family History (Last Updated 07/01/17 @ 12:08 by Lisa Ferreira) Mother Heart disease Hypertension History Items: Heart Disease - Patient with son with significant cardiac disease concurrently, CAD. Paternal Family History: Family History (Last Updated 07/01/17 @ 12:08 by Lisa Ferreira) Mother Heart disease Hypertension History Items: - - Patient with no market paternal family history including heart disease, diabetes, cancer. Maternal Family History: Family History (Last Updated 07/01/17 @ 12:08 by Lisa Ferreira) Mother Heart disease Hypertension History Items: Heart Disease Review of Systems Constitutional: Reports: Chills, Fever, Malaise, Weakness, Fatigue. Denies: Anorexia, Night Sweats, Weight Change Eyes: Denies: Blurred vision, Conjunctivae Inflammation, Drainage, Eyelid Inflammation, Pain, Redness, Vision Change HEENT: Denies: Difficulty Swallowing, Ear Pain, Eye Pain, Head Aches, Nasal bleeding, Nasal Congestion, Post Nasal Drip, Sinus Congestion, Sinus Drainage, Sore Throat, Visual Changes Cardiovascular: Reports: Chest Pain - From CPR at last admission. Denies: Claudication, Chest Pressure, Chest Tightness, Edema, Heaviness, Light Headedness, Orthopnea, Palpitations, Paroxysmal Noc. Dyspnea, Syncope Respiratory: Reports: Cough, Shortness of Breath, Shortness of breath at rest, Shortness of breath upon exertion, Sputum production. Denies: Hemoptysis, Pleuritic Pain, Wheezing Gastrointestinal: Denies: Abdominal Pain, Constipation, Diarrhea, Dyspepsia, Hematemesis, Hematochezia, Nausea, Melena, Vomiting Genitourinary: Denies: Dysuria, Frequency, Hesitancy, Incontinence, Nocturia, Retention, Urgency Musculoskeletal: Denies: Back Pain, Joint Pain, Joint stiffness, Joint swelling, Joint Tenderness, Muscle pain, Neck Pain Skin: Denies: Dryness, Jaundice, Lesions, Pruritis, Rash, Skin Changes, Wounds Neurological: Reports: Confusion - Mild. Denies: Balance problems, Blurred vision, Double vision, Change in Speech, Slurred speech, Difficulty swallowing, Focal weakness, Headaches, Incoordination, Numbness, Tingling, Tremor, Seizures Psychiatric: Denies: Anxiety, Depression Endocrine: Denies: Change in Body Habitus, Heat/ Cold Intolerance, Polydipsia, Polyuria Hematologic/ Lymphatic: Denies: Adenopathy, Anemia, Easy Bruising, Petechiae, Purpura VTE Information - Inpt Only VTE Present on Admission: No VTE Mechan Device Prophylaxis: None VTE Pharm Prophylaxis ordered?: Yes - Physical Exam Vitals/I&O's: Vital Signs Temp Pulse Resp BP Pulse Ox 98.1 F 96 22 H 89/70 L 97 02/16/20 20:42 02/16/20 20:42 02/16/20 20:42 02/16/20 20:42 02/16/20 20:42 Oxygen Flow Rate (L/min) 15 Oxygen Delivery Method Non-Rebreather Weight: 63.1 kg Body Mass Index (BMI) 24.6 Finger Stick Blood Glucose 61 Intake and Output for Last 24 Hours 02/14/20 02/15/20 02/16/20 23:59 23:59 23:59 Intake Total 2913.05 / 2913.05 Balance 2913.05 / 2913.05 General: Alert, Oriented x3, Cooperative, Well developed, Well nourished, Lethargic, - - Older white female who appears older than stated age, lying in bed, some increased work of breathing noted HEENT: Atraumatic, PERRLA, EOMI, Normocephalic Oral: No Gingival or Mucosal Lesions/ Ulcerations, Dry Mucosa, - - Mallampati 2, her dentition is poor Neck: Supple, No JVD, Negative Carotid Bruits, Negative Hepatojugular Reflux, No Nodes, No Nuchal Rigidity, Trachea Midline, Thyroid Normal Size and Texture Lungs: No rhonchi - Diffuse, No wheeze, No rales, Diminished - Diffuse, Short of Breath, Tachypneic, Using Accessory Muscles - Minimally Cardiovascular: Regular rate, Regular Rhythm, Normal S1, Normal S2, No murmurs, No Ectopic Activity, No rub noted, No Gallop, - - Difficult to auscultate secondary to lung sound abnormalities Abdomen: Bowel Sounds Present, Soft, Non Tender, Non-Distended, No hernias noted Extremities: No clubbing, No cyanosis, No edema, Capillary Refill Less than 3 Seconds, Peripheral Pulses Normal Skin: No rashes, No breakdown Musculoskeletal: No Tenderness to Palpation of Joints or Extremities, Arthritic Changes, Muscle Wasting Neurological: Cranial nerves II-XII grossly intact, Deep Tendon Reflexes 2+/4 and Symmetrical, Muscle tone normal, Sensory exam intact to light touch and pain, Coordination normal Psych/Mental Status: Appropriate, Flat Affect, - - Appears as if she is not feeling well Microbiology Past 72 Hours 02/16/20 16:45 Mucosa - Nose SARS-CoV-2 Antigen (Rapid) - Final Laboratory Results 02/16/20 16:40: WBC 17.2 H, RBC 3.47 L, Hgb 10.7 L, Hct 32.3 L, MCV 93.1, MCH 30.8, MCHC 33.1, RDW Std Deviation 46.7 H, RDW Coeff of Nehemiah 13.7, Plt Count 253, MPV 10.3, Immature Gran % (Auto) 1.000 H, Neut % (Auto) 76.3 H, Lymph % (Auto) 15.0 L, [place] % (Auto) 3.9, Eos % (Auto) 3.5, Baso % (Auto) 0.3, Absolute Neuts (auto) 13.1 H, Absolute Lymphs (auto) 2.57, Nucleated RBC % 0.1 02/16/20 16:40: PT 15.1 H, INR 1.2, APTT 41.1 H 02/16/20 16:40: Sodium 132 L, Potassium 4.4, Chloride 100, Carbon Dioxide 22.0, Anion Gap 10, BUN 16, Creatinine 1.08 H, Estim Creat Clear Calc 42.96, Est GFR (MDRD) Af Amer 65, Est GFR (MDRD) Non-Af 54 L, BUN/Creatinine Ratio 14.8, Glucose 81, Calcium 7.8 L, Total Bilirubin 0.80, AST 47 H, ALT 45, Alkaline Phosphatase 89, Troponin I 1.100 H*, Total Protein 6.3 L, Albumin 2.3 L, Globulin 4.0, Albumin/Globulin Ratio 0.6 L 02/16/20 16:40: B-Natriuretic Peptide 392.3 H 02/16/20 16:41: Lactic Acid 1.9 02/16/20 17:20: Urine Color Jada, Urine Clarity Sl. Cloudy, Urine pH 5.0, Ur Specific [place] 1.015, Urine Protein 30 H, Urine Glucose (UA) Normal, Urine Ketones 50 H, Urine Occult Blood 50 H, Urine Nitrite Negative, Urine Bilirubin Negative, Urine Urobilinogen Normal, Ur Leukocyte Esterase 25 H, Urine RBC 0-5 SEEN, Urine WBC 0-5 SEEN, Ur Squamous Epith Cells 0-5 SEEN, Urine Bacteria RARE, Hyaline Casts 0-5 SEEN, Urine Mucus RARE 02/16/20 17:20: Urine Color Cancelled, Urine Clarity Cancelled, Urine pH Cancelled, Ur Specific [place] Cancelled, U Specif Grav (Refrac) Cancelled, Urine Protein Cancelled, Urine Glucose (UA) Cancelled, Urine Ketones Cancelled, Urine Occult Blood Cancelled, Urine Nitrite Cancelled, Urine Bilirubin Cancelled, Urine Urobilinogen Cancelled, Ur Leukocyte Esterase Cancelled, Urine RBC Cancelled, Urine WBC Cancelled, Ur Squamous Epith Cells Cancelled, Ur Transition Epith Cell Cancelled, Ur Renal Epithelial Cell Cancelled, Calcium Oxalate Crystal Cancelled, Uric Acid Crystals Cancelled, Triple Phos Crystals Cancelled, Other Crystals Cancelled, Amorphous Sediment Cancelled, Urine Bacteria Cancelled, Hyaline Casts Cancelled, Fine Granular Casts Cancelled, Coarse Granular Casts Cancelled, Waxy Casts Cancelled, RBC Casts Cancelled, WBC Casts Cancelled, Urine Mucus Cancelled, Urine Trichomonas Cancelled, Urine Yeast Cancelled Current Medications Sodium Chloride () 250 mls @ 15 mls/hr IV .[id number] PRN PRN Reason: Saline Flush Sodium Chloride () 250 mls @ 15 mls/hr IV .[id number] PRN PRN Reason: Additional IVPB Infusion Assessment/Plan All Active Problems (Last Updated 07/01/17 @ 12:07 by Lisa Ferreira) STEMI (ST elevation myocardial infarction) (Ruled-out) Cardiac arrest (Acute) Torsades de pointes (Acute) Ventricular tachycardia (Acute) NSTEMI (non-ST elevated myocardial infarction) (Acute) Cardiogenic shock (Acute) Acute hypoxic respiratory failure secondary to HCAP -BiPAP / and supplemental O2 -Wean as able -Tracyo and Rommel for antibiotics -MRSA PCR -Sputum culture with induction -End of spirometer -PEP therapy -Strep pneumo and Legionella although doubt positive with recent hospitalization -Aggressive pulmonary toilet with scheduled and as needed nebulizers -Patient is at risk for requiring intubation -Consult critical care medicine\pulmonary Hypotension -Responded well with IV fluids in the emergency department -We will utilize stress dose steroids as the patient is adrenally insufficient at baseline -Cortef 50 mg every 8 wean as well -Continue to monitor Sepsis 2/2 HCAP -Sputum culture and blood cultures are pending -Covid is negative -Continue IV antibiotics CAD with recent PCI to SVG to OM 02/03/2020/HFr EF -Continue aspirin -Continue Brilinta -Hold lisinopril, and metoprolol for now until blood pressure improved -Start as able -Continue statin -EF is 40% -Hold Lasix for now -Cardiac diet Mild LAURYN -Should resolve with hydration -Repeat BMP in a.m. -Diuresis Hypertension -Hold meds at this time HPL -Continue statin Adrenal insufficiency -Stress dose steroids 50 every 8 -At baseline she is on Cortef 20 mg in the morning and 10 mg at at bedtime COPD Aerosols as ordered -Mental O2 as needed DVT prophylaxis -Lovenox 40 daily CODE STATUS -Full Critical care time greater than 31 minutes Procedures: [id number] Critial Care 1st Hr
[2020-02-16] MEDS: Hydrocortisone Sod Succinate 100 MG/2 ML Vial IV (21:57)
[2020-02-16] MEDS: 0.9% Normal Saline 1,000 ML 100 ML IV (22:00)
[2020-02-16] MEDS: Ipratropium/Albuterol Sulfate 3 ML AMPUL.NEB INHALATION (22:15)
[2020-02-17] VITALS (36 sets, daily range): BP systolic 79–113; BP diastolic 51–69; PULSE 85–105; RESP 12–29; TEMP 36.6–37.4; O2SAT 92–100
--- NOTE | 2020-02-17 00:42 | PCM.RX.CS ---
Consult Pharmacy has been consulted to manage selected antiobiotic: Vancomycin Type of Consult: New start Suspected Infection: Pneumonia Labs: Sodium 132 mmol/L (136-145) L 02/16/20 16:40 Potassium 4.4 mmol/L (3.5-5.1) 02/16/20 16:40 Chloride 100 mmol/L (98-107) 02/16/20 16:40 Carbon Dioxide 22.0 mmol/L (21.0-32.0) 02/16/20 16:40 Anion Gap 10 (5-15) 02/16/20 16:40 BUN 16 mg/dL (7-18) 02/16/20 16:40 Creatinine 1.08 mg/dL (0.55-1.02) H 02/16/20 16:40 Est GFR (MDRD) Af Amer 65 mL/min (>60) 02/16/20 16:40 Est GFR (MDRD) Non-Af 54 mL/min (>60) L 02/16/20 16:40 BUN/Creatinine Ratio 14.8 RATIO (10-20) 02/16/20 16:40 Glucose 81 mg/dL (74-106) 02/16/20 16:40 Microbiology: Microbiology 02/16/20 16:45 Mucosa - Nose SARS-CoV-2 Antigen (Rapid) - Final Goal Trough: 15-20 mcg/mL Pharmacy Plan for Drug Dosing: Pharmacy Service will continue to monitor and adjust dosing as required. Medications Vancomycin HCl () 500 mg in 100 mls @ 100 mls/hr IV Q12H ANTONIO Discontinued Medications Vancomycin HCl 1,500 mg/ (Sodium Chloride) 530 mls @ 250 mls/hr IV X1 ONE Stop: 02/16/20 20:37 Last Admin: 02/16/20 20:41 Dose: Infused Documented by: Follow-Up Labs: Trough Vancomycin Labs to be done on [date and time ordered]: 02/17 @ 6239
[2020-02-17] MEDS: Ipratropium/Albuterol Sulfate 3 ML AMPUL.NEB INHALATION ×6 (02:11→23:23)
[2020-02-17 03:21] LABS: Absolute Lymphocyte Count 0.47 X10^3/uL (0.83-4.51); Absolute Neutrophil Count 15.3 X10^3/uL (2.0-7.7); Basophil# 0.08 X10^3/uL; Basophil% 0.5 % (0-1); Eosinophil# 0.06 X10^3/uL; Eosinophils% 0.4 % (0-5); Hematocrit 31.9 % (37-47); Lymphocyte # 0.47 X10^3/ul (4.0); Lymphocyte % 2.8 % (19-41); Mean Corp Hgb Conc 31.3 g/dL (32-36); Mean Corpuscular Hgb 30.8 pg (27.0-32.0); Mean Corpuscular Volume 98.2 fL (81-99); Mean Platelet Vol. 10.2 fl (6.2-12.0); Monocyte# 0.58 X10^3/uL; Monocyte% 3.4 % (0-10); NRBC Flagged by Analyzer 0 % (0-5); Neutrophil # 15.26 X10^3/uL (2.7-7.7); Neutrophil % 89.8 % (47-70); POSITIVE DIFFERENTIAL YES; Platelet Count 209 K/mm3 (150-450); RBC Distribution Width CV 14.1 % (11.6-14.6); RBC Distribution Width SD 50.8 fl (35.1-43.9); Red Blood Count 3.25 M/mm3 (4.2-5.4)
[2020-02-17 03:25] LABS: Differential Indicated SCAN CRITERIA MET
[2020-02-17 04:11] LABS: Differential Comment SCANNED
[2020-02-17 04:12] LABS: Platelet Estimate ADEQUATE (ADEQ); Polychromasia RARE
[2020-02-17 04:29] LABS: Anion Gap 9 (5-15); BUN 16 mg/dL (7-18); BUN/Creat Ratio 20.8 RATIO (10-20); Calcium,Total 6.8 mg/dL (8.5-10.1); Chloride 111 mmol/L (98-107); Creatinine, Serum 0.77 mg/dL (0.55-1.02); EST Glomerular Filtration Rate 80 mL/min (>60); Est Glom Filt Rate - Afr Amer 97 mL/min (>60); Estimated Creatinine Clearance 60.25 ml/min; Glucose 70 mg/dL (74-106); Magnesium 1.6 mg/dL (1.6-2.6); Potassium 4.8 mmol/L (3.5-5.1); Sodium Level 137 mmol/L (136-145)
[2020-02-17 04:33] LABS: M R Staph aureus DNA By PCR Negative (Negative); Probe Check PASS; Specimen Processing Control PASS
[2020-02-17 04:36] LABS: Phosphorus 4.8 mg/dL (2.5-4.9)
[2020-02-17] MEDS: Hydrocortisone Sod Succinate 100 MG/2 ML Vial 50 MG IV ×3 (05:52→22:00)
[2020-02-17] MEDS: Vancomycin IV 500 MG/100 ML BAG 100 MG IV ×2 (05:52→19:45)
[2020-02-17 06:16] LABS: Bedside Glucose 76 mg/dL (70-110)
--- NOTE | 2020-02-17 06:34 | CON.PCM_ITS ---
Reason for Consult Date of Consultation: 02/17/20 Reason for Consultation: Acute on chronic hypoxemic respiratory failure History of Present Illness: The patient is a 64-year-old female, with a history as outlined below, who presented to the emergency department on February 15 with shortness of breath, fever and diarrhea. The patient had just been discharged from the hospital the day prior after having been admitted with respiratory failure due to cardiac arrest/STEMI, with hospital course complicated by aspiration pneumonia and adrenal insufficiency. The patient does have a history of COPD of unknown severity, chronic hypoxemic respiratory failure with a baseline 2 L/min requirement, coronary artery disease status post CABG and adrenal insufficiency on baseline hydrocortisone therapy as an outpatient. E. coli was isolated from the patient's prior sputum cultures. On presentation to the emergency department, the patient was noted to be febrile with a temperature of 102 ?F. She was also tachycardic and tachypneic. Laboratory evaluation revealed an elevated white blood cell count to 17,000. Chemistry profile was notable for a sodium of 132 and creatinine of 1.08. Lactate was noted to be 1.9. Troponin was increased to 1.1. BNP was increased to 392. Urine analysis was largely unremarkable. MRSA screen was negative. Chest x-ray revealed right upper lobe pneumonia. The patient received supplemental IV fluid hydration and was again started on broad-spectrum antimicrobials. The patient was placed on continuous BiPAP therapy and admitted to the medical intensive care unit for further management. Overnight, the patient was started on stress dose steroids. Although orders for vasopressor support were placed, the patient never had to be started on Levophed. Overnight, the patient was able to be weaned from BiPAP to Airvo heated high flow oxygen. The patient's hemodynamics stabilized without the need for vasopressor support. Past Medical History Past Medical History (Chronic Problems): Chronic Problems (Last Updated 07/01/17 @ 12:07 by Lisa Ferreira) Chronic obstructive pulmonary disease (COPD) (Chronic) Tobacco use (Chronic) Presence of stent in coronary artery (Chronic) Stent assisted PTCA of prox LAD and cutting balloon 11/06/02; PTCA/Stent of the CX 09/18/13 Aortocoronary bypass status (Chronic ~09/24/13) CABG x 3- KENNY to LAD, SVG to OM, SVG to distal right 09/24/13 Peripheral vascular insufficiency (Chronic) History of myocardial infarction (Chronic) Atherosclerotic heart disease of [place] coronary artery without angina pectoris (Chronic) CABG x 3- KENNY to LAD, SVG to OM, SVG to distal right 09/24/13; Stent assisted PTCA of prox LAD and cutting balloon 11/06/02; PTCA/Stent of the CX 09/18/13 S/P PTCA (percutaneous transluminal coronary angioplasty) (Chronic) Stent assisted PTCA of prox LAD and cutting balloon 11/06/02; PTCA/Stent of the CX 09/18/13 Hyperlipidemia (Chronic) Hypertension (Chronic) Squamous cell carcinoma of left lung (Chronic) Medical History: Medical History (Last Updated 07/01/17 @ 12:07 by Lisa Ferreira) Peripheral vascular insufficiency (Chronic) I73.9 History of myocardial infarction (Chronic) I25.2 Atherosclerotic heart disease of [place] coronary artery without angina pectoris (Chronic) I25.10 CABG x 3- KENNY to LAD, SVG to OM, SVG to distal right 09/24/13; Stent assisted PTCA of prox LAD and cutting balloon 11/06/02; PTCA/Stent of the CX 09/18/13 Hyperlipidemia (Chronic) E78.5 Hypertension (Chronic) I10 Squamous cell carcinoma of left lung (Chronic) C34.92 History of GI bleed Z87.19 COPD (chronic obstructive pulmonary disease) J44.9 Tobacco abuse Z72.0 Hypotension (Inactive) I95.9 Left shoulder pain (Inactive) M25.512 Shock (Inactive) R57.9 Allergies atorvastatin Adverse Reaction (Severe, Verified 02/16/20 16:30) Myalgias hydrocodone Adverse Reaction (Verified 02/16/20 16:30) Itching hydrocodone bitartrate [From Vicodin] Adverse Reaction (Verified 02/16/20 16:30) Itching oxycodone HCl [From Percocet] Adverse Reaction (Verified 02/16/20 16:30) Itching Home Medications: Ambulatory Orders Medication Instructions Recorded Aspirin [Aspirin, Baby] 81 mg PO DAILY 02/17/13 Lorazepam [Ativan] 1 mg PO QHS 07/25/18 Hydrocortisone [Cortef] 10 mg PO QHS 02/11/20 Hydrocortisone [Cortef] 20 mg PO DAILY 02/11/20 Acetaminophen [Tylenol Tablet] 650 mg PO Q4H PRN PRN tab 02/15/20 Albuterol Sulfate [Albuterol 2 puff IH Q4H PRN PRN #1 inhaler 02/15/20 Sulfate HFA] Oxycodone [Oxyir] 5 mg PO Q4H PRN PRN 3 Days #15 tab 02/15/20 Amoxicillin/Potassium Clav 1 ea PO BID 02/16/20 [Augmentin 875-125 Tablet] Atorvastatin Calcium [Lipitor] 10 mg PO QHS 02/16/20 Furosemide [Lasix] 40 mg PO DAILY 02/16/20 Lisinopril [Zestril] 5 mg PO DAILY 02/16/20 Metoprolol(XL)Succ [Toprol Xl 25 mg PO DAILY 02/16/20 (Beta Herminia)] Potassium Chloride [K-Dur] 20 meq PO BIDCM 02/16/20 Ticagrelor [Brilinta] 90 mg PO BID 02/16/20 Surgical History: Surgical History (Last Updated 07/01/17 @ 12:07 by Lisa Ferreira) Presence of stent in coronary artery (Chronic) Z95.5 Stent assisted PTCA of prox LAD and cutting balloon 11/06/02; PTCA/Stent of the CX 09/18/13 Aortocoronary bypass status (Chronic) Onset Date: ~09/24/13 Z95.1 CABG x 3- KENNY to LAD, SVG to OM, SVG to distal right 09/24/13 S/P PTCA (percutaneous transluminal coronary angioplasty) (Chronic) Z98.61 Stent assisted PTCA of prox LAD and cutting balloon 11/06/02; PTCA/Stent of the CX 09/18/13 Surgical History: angioplasty - CABG x 3 and PCI., appendectomy, - - BLTL Psychiatric History: Anxiety SERVICE REPRESENTATIVE History: No pertinent SERVICE REPRESENTATIVE history Smoking Status: Former smoker - *Family History Offspring Family History: Family History (Last Updated 07/01/17 @ 12:08 by Lisa Ferreira) Mother Heart disease Hypertension History Items: Heart Disease - Patient with son with significant cardiac disease concurrently, CAD. Maternal Family History: Family History (Last Updated 07/01/17 @ 12:08 by Lisa Ferreira) Mother Heart disease Hypertension History Items: Heart Disease Paternal Family History: Family History (Last Updated 07/01/17 @ 12:08 by Lisa Ferreira) Mother Heart disease Hypertension History Items: - - Patient with no market paternal family history including heart disease, diabetes, cancer. Review of Systems Constitutional: Reports: Chills, Fever, Fatigue Eyes: Denies: Blurred vision, Double vision HEENT: Denies: Head Aches, Sinus Congestion, Sinus Drainage Cardiovascular: Denies: Chest Pain, Palpitations Respiratory: Reports: Cough, Shortness of Breath Gastrointestinal: Reports: Diarrhea Genitourinary: Denies: Dysuria Musculoskeletal: Denies: Joint Pain, Joint Tenderness Skin: Denies: Rash, Wounds Neurological: Denies: Numbness, Tingling, Focal weakness Psychiatric: Reports: Anxiety Hematologic/ Lymphatic: Reports: Anemia Objective: The patient's most recent lab work, culture data and imaging studies have all been personally reviewed. Surface echocardiogram revealed stage I diastolic dysfunction with severe hypokinesis and an ejection fraction of 40%. Prior sputum culture dated February 09 was positive for E. coli. Coronavirus PCR was negative on February 09. Rapid coronavirus antigen testing on February 15 was negative. Strep and urine Legionella antigens were negative. C. difficile PCR was negative. Blood and urine cultures are pending. - Physical Exam Vitals/I&O's: Vital Signs Temp Pulse Resp BP Pulse Ox 98.7 F 89 22 H 105/60 100 02/17/20 04:05 02/17/20 06:00 02/17/20 06:00 02/17/20 06:00 02/17/20 06:00 Oxygen Flow Rate (L/min) 15 Oxygen Delivery Method Non-Rebreather Weight: 142 lb 6.698 oz Body Mass Index (BMI) 24.7 Finger Stick Blood Glucose 61 Intake and Output for Last 24 Hours 02/15/20 02/16/20 02/17/20 23:59 23:59 23:59 Intake Total 3912.05 / 3912.05 Output Total 50 / 50 300 / 300 Balance 3862.05 / 3862.05 -300 / -300 General: Alert, Cooperative, No apparent distress HEENT: Atraumatic, Normocephalic Oral: Dry Mucosa Neck: Supple, No Nodes, Trachea Midline Lungs: Diminished, - - Globally diminished air movement bilaterally. Cardiovascular: Regular rate, Regular Rhythm Abdomen: Bowel Sounds Present, Soft, Non Tender Extremities: No clubbing, No cyanosis, No edema Skin: No breakdown Musculoskeletal: No Tenderness to Palpation of Joints or Extremities Lymphatic: No Cervical, Supraclavicular, or Inguinal Adenopathy Neurological: Cranial nerves II-XII grossly intact, Neuro grossly intact Psych/Mental Status: Anxious Labs (Last 48 Hours) 02/16/20 02/16/20 02/16/20 16:40 16:40 16:40 WBC 17.2 H RBC 3.47 L Hgb 10.7 L Hct 32.3 L MCV 93.1 MCH 30.8 MCHC 33.1 RDW Std Deviation 46.7 H RDW Coeff of Nehemiah 13.7 Plt Count 253 MPV 10.3 Immature Gran % (Auto) 1.000 H Neut % (Auto) 76.3 H Lymph % (Auto) 15.0 L [place] % (Auto) 3.9 Eos % (Auto) 3.5 Baso % (Auto) 0.3 Absolute Neuts (auto) 13.1 H Absolute Lymphs (auto) 2.57 Nucleated RBC % 0.1 Differential Comment Platelet Estimate Polychromasia PT 15.1 H INR 1.2 APTT 41.1 H Sodium 132 L Potassium 4.4 Chloride 100 Carbon Dioxide 22.0 Anion Gap 10 BUN 16 Creatinine 1.08 H Estim Creat Clear Calc 42.96 Est GFR (MDRD) Af Amer 65 Est GFR (MDRD) Non-Af 54 L BUN/Creatinine Ratio 14.8 Glucose 81 Lactic Acid Calcium 7.8 L Phosphorus Magnesium Total Bilirubin 0.80 AST 47 H ALT 45 Alkaline Phosphatase 89 Troponin I 1.100 H* B-Natriuretic Peptide Total Protein 6.3 L Albumin 2.3 L Globulin 4.0 Albumin/Globulin Ratio 0.6 L Urine Color Urine Clarity Urine pH Ur Specific [place] U Specif Grav (Refrac) Urine Protein Urine Glucose (UA) Urine Ketones Urine Occult Blood Urine Nitrite Urine Bilirubin Urine Urobilinogen Ur Leukocyte Esterase Urine RBC Urine WBC Ur Squamous Epith Cells Ur Transition Epith Cell Ur Renal Epithelial Cell Calcium Oxalate Crystal Uric Acid Crystals Triple Phos Crystals Other Crystals Amorphous Sediment Urine Bacteria Hyaline Casts Fine Granular Casts Coarse Granular Casts Waxy Casts RBC Casts WBC Casts Urine Mucus Urine Trichomonas Urine Yeast MRSA (PCR) POC Glucose 02/16/20 02/16/20 02/16/20 16:40 16:41 17:20 WBC RBC Hgb Hct MCV MCH MCHC RDW Std Deviation RDW Coeff of Nehemiah Plt Count MPV Immature Gran % (Auto) Neut % (Auto) Lymph % (Auto) [place] % (Auto) Eos % (Auto) Baso % (Auto) Absolute Neuts (auto) Absolute Lymphs (auto) Nucleated RBC % Differential Comment Platelet Estimate Polychromasia PT INR APTT Sodium Potassium Chloride Carbon Dioxide Anion Gap BUN Creatinine Estim Creat Clear Calc Est GFR (MDRD) Af Amer Est GFR (MDRD) Non-Af BUN/Creatinine Ratio Glucose Lactic Acid 1.9 Calcium Phosphorus Magnesium Total Bilirubin AST ALT Alkaline Phosphatase Troponin I B-Natriuretic Peptide 392.3 H Total Protein Albumin Globulin Albumin/Globulin Ratio Urine Color Jada Urine Clarity Sl. Cloudy Urine pH 5.0 Ur Specific [place] 1.015 U Specif Grav (Refrac) Urine Protein 30 H Urine Glucose (UA) Normal Urine Ketones 50 H Urine Occult Blood 50 H Urine Nitrite Negative Urine Bilirubin Negative Urine Urobilinogen Normal Ur Leukocyte Esterase 25 H Urine RBC 0-5 SEEN Urine WBC 0-5 SEEN Ur Squamous Epith Cells 0-5 SEEN Ur Transition Epith Cell Ur Renal Epithelial Cell Calcium Oxalate Crystal Uric Acid Crystals Triple Phos Crystals Other Crystals Amorphous Sediment Urine Bacteria RARE Hyaline Casts 0-5 SEEN Fine Granular Casts Coarse Granular Casts Waxy Casts RBC Casts WBC Casts Urine Mucus RARE Urine Trichomonas Urine Yeast MRSA (PCR) POC Glucose 02/16/20 02/17/20 02/17/20 17:20 02:25 03:10 WBC 17.0 H RBC 3.25 L Hgb 10.0 L Hct 31.9 L MCV 98.2 D MCH 30.8 MCHC 31.3 L D RDW Std Deviation 50.8 H RDW Coeff of Nehemiah 14.1 Plt Count 209 MPV 10.2 Immature Gran % (Auto) 3.100 H Neut % (Auto) 89.8 H Lymph % (Auto) 2.8 L [place] % (Auto) 3.4 Eos % (Auto) 0.4 Baso % (Auto) 0.5 Absolute Neuts (auto) 15.3 H Absolute Lymphs (auto) 0.47 L Nucleated RBC % 0 Differential Comment SCANNED Platelet Estimate ADEQUATE Polychromasia RARE PT INR APTT Sodium Potassium Chloride Carbon Dioxide Anion Gap BUN Creatinine Estim Creat Clear Calc Est GFR (MDRD) Af Amer Est GFR (MDRD) Non-Af BUN/Creatinine Ratio Glucose Lactic Acid Calcium Phosphorus Magnesium Total Bilirubin AST ALT Alkaline Phosphatase Troponin I B-Natriuretic Peptide Total Protein Albumin Globulin Albumin/Globulin Ratio Urine Color Cancelled Urine Clarity Cancelled Urine pH Cancelled Ur Specific [place] Cancelled U Specif Grav (Refrac) Cancelled Urine Protein Cancelled Urine Glucose (UA) Cancelled Urine Ketones Cancelled Urine Occult Blood Cancelled Urine Nitrite Cancelled Urine Bilirubin Cancelled Urine Urobilinogen Cancelled Ur Leukocyte Esterase Cancelled Urine RBC Cancelled Urine WBC Cancelled Ur Squamous Epith Cells Cancelled Ur Transition Epith Cell Cancelled Ur Renal Epithelial Cell Cancelled Calcium Oxalate Crystal Cancelled Uric Acid Crystals Cancelled Triple Phos Crystals Cancelled Other Crystals Cancelled Amorphous Sediment Cancelled Urine Bacteria Cancelled Hyaline Casts Cancelled Fine Granular Casts Cancelled Coarse Granular Casts Cancelled Waxy Casts Cancelled RBC Casts Cancelled WBC Casts Cancelled Urine Mucus Cancelled Urine Trichomonas Cancelled Urine Yeast Cancelled MRSA (PCR) Negative POC Glucose 02/17/20 02/17/20 02/17/20 03:10 03:10 06:11 WBC RBC Hgb Hct MCV MCH MCHC RDW Std Deviation RDW Coeff of Nehemiah Plt Count MPV Immature Gran % (Auto) Neut % (Auto) Lymph % (Auto) [place] % (Auto) Eos % (Auto) Baso % (Auto) Absolute Neuts (auto) Absolute Lymphs (auto) Nucleated RBC % Differential Comment Platelet Estimate Polychromasia PT INR APTT Sodium 137 Potassium 4.8 Chloride 111 H Carbon Dioxide 17.0 L Anion Gap 9 BUN 16 Creatinine 0.77 Estim Creat Clear Calc 60.25 Est GFR (MDRD) Af Amer 97 Est GFR (MDRD) Non-Af 80 BUN/Creatinine Ratio 20.8 H Glucose 70 L Lactic Acid Calcium 6.8 L Phosphorus 4.8 Magnesium 1.6 Total Bilirubin AST ALT Alkaline Phosphatase Troponin I B-Natriuretic Peptide Total Protein Albumin Globulin Albumin/Globulin Ratio Urine Color Urine Clarity Urine pH Ur Specific [place] U Specif Grav (Refrac) Urine Protein Urine Glucose (UA) Urine Ketones Urine Occult Blood Urine Nitrite Urine Bilirubin Urine Urobilinogen Ur Leukocyte Esterase Urine RBC Urine WBC Ur Squamous Epith Cells Ur Transition Epith Cell Ur Renal Epithelial Cell Calcium Oxalate Crystal Uric Acid Crystals Triple Phos Crystals Other Crystals Amorphous Sediment Urine Bacteria Hyaline Casts Fine Granular Casts Coarse Granular Casts Waxy Casts RBC Casts WBC Casts Urine Mucus Urine Trichomonas Urine Yeast MRSA (PCR) POC Glucose 76 Microbiology 02/17/20 02:25 Urine Catheter - Michaud Legionella Antigen - Final 02/17/20 02:25 Urine Catheter - [place]aud Streptococcus pneumoniae Antigen (M - Final 02/16/20 16:45 Mucosa - Nose SARS-CoV-2 Antigen (Rapid) - Final Clinical Impression(s) from Imaging Studies Chest X-Ray 02/16/20 17:20 IMPRESSION: Worsening right upper lobe pneumonia. Electronically Signed: Brandon Hernandez MD ([place]) at 17:53 EST , Service support , Current Medications Acetaminophen (Acetaminophen 325 Mg Tablet) 650 mg PO Q6H PRN PRN PRN Reason: Pain Score 1-10/Temp > 100.7 F Al Hydroxide/Mg Hydroxide (Mag Hydrox/Al Hydrox/Simeth 30 Ml Udc) 30 ml PO Q6H PRN PRN PRN Reason: Gastric Burning Albuterol Sulfate (Albuterol 2.5 Mg/3 Ml Vial.Neb.) 2.5 mg INHALATION Q2H PRN PRN PRN Reason: SOB/Wheezing Albuterol/Ipratropium (Ipratropium/Albuterol Sulfate 3 Ml Ampul.Neb) 3 ml INHALATION Q4H.RT [facility] Last Admin: 02/17/20 02:11 Dose: 3 ml Documented by: Aspirin (Aspirin 81 Mg Tab.Chew) 81 mg PO DAILY [facility] Atorvastatin Calcium (Atorvastatin Calcium 10 Mg Tablet) 10 mg PO QHS [facility] Last Admin: 02/16/20 23:51 Dose: Not Given Documented by: Docusate Sodium (Docusate Sodium 100 Mg Capsule) 100 mg PO BID PRN PRN PRN Reason: Constipation Enoxaparin Sodium (Enoxaparin 40 Mg/0.4 Ml Syringe) 40 mg SC DAILY [facility] Hydrocortisone Sodium Succinate (Hydrocortisone Sod Succinate 100 Mg/2 Ml Vial) 50 mg IV Q8 [facility] Last Admin: 02/17/20 05:52 Dose: 50 mg Documented by: Sodium Chloride () 1,000 mls @ 100 mls/hr IV .Q10H [facility] Last Admin: 02/16/20 22:00 Dose: 100 mls/hr Documented by: Piperacillin Sod/Tazobactam (Sod 3.375 gm/ Sodium Chloride) 50 mls @ 12.5 mls/hr IV Q8 [facility] Stop: 02/24/20 06:01 Last Admin: 02/17/20 04:15 Dose: 12.5 mls/hr Documented by: Vancomycin IV Pharmacy to Dose (1 ea/ Sodium Chloride) 500 mls @ 250 mls/hr IV X1 PRN; Protocol PRN Reason: Rx to Dose Norepinephrine Bitartrate 8 mg (/ Sodium Chloride) 250 mls @ 9.375 mls/hr CONT INF .[id number] [facility]; Protocol Vancomycin HCl () 500 mg in 100 mls @ 100 mls/hr IV Q12H [facility] Last Admin: 02/17/20 05:52 Dose: 100 mls/hr Documented by: Melatonin (Melatonin 3 Mg Tablet) 3 mg PO QHS PRN PRN PRN Reason: INSOMNIA Ondansetron HCl (Ondansetron 4 Mg/2 Ml Vial) 4 mg IV Q8H PRN PRN PRN Reason: NAUSEA/VOMITING Sodium Chloride (0.9% Saline Lock 10 Ml Syringe) 10 - 40 ml IV UD PRN PRN Reason: SALINE FLUSH Ticagrelor (Ticagrelor 90 Mg Tablet) 90 mg PO BID [facility] Last Admin: 02/16/20 23:50 Dose: Not Given Documented by: Assessment/Plan RECOMMENDATIONS: 1. Continuing empiric antimicrobials, pending repeat infectious work-up. 2. Continue bronchodilators and steroids. 3. Once the patient's hemodynamics stabilize, stress dose steroids can be discontinued and the patient can be resumed on her baseline hydrocortisone therapy. 4. Continue Airvo heated high flow oxygen and wean FiO2 to maintain oxygen saturations at or above 90%. 5. Encourage incentive spirometer use and mobilize patient as tolerated. 6. Obtain CTA chest to evaluate for the presence of pulmonary embolism. 7. Recommend formal evaluation of lung function in the pulmonary medicine clinic after discharge from the hospital. IMPRESSIONS: 1. Acute on chronic hypoxemic respiratory failure The patient was just discharged from the hospital on February 14 after having been admitted with respiratory failure as a consequence of acute cardiac arrest, necessitating revascularization. The patient was also noted to have an aspiration pneumonia during that hospitalization, which was being treated with antimicrobials. She does have an apparent history of COPD of unknown severity along with a baseline 2 L/min oxygen requirement. At this time, recommend continuing antimicrobials, bronchodilators and steroids. The patient has been weaned from BiPAP to Airvo heated high flow with a goal to wean FiO2 to maintain oxygen saturations at or above 90%. Will obtain CTA chest to evaluate for PE as well. 2. History of COPD of unknown severity/history of tobacco dependency Continue scheduled bronchodilator therapy. Wean supplemental oxygen as tolerated. The patient would likely benefit from formal work-up in the pulmonary medicine clinic following discharge. 3. History of coronary artery disease status post CABG Continue current medical management per cardiology recommendations. 4. History of adrenal insufficiency The patient does have a history of adrenal insufficiency and is on baseline hydrocortisone therapy in her home environment. Given her tenuous hemodynamics, agree with continuing stress dose steroids. 5. Hypertension/hyperlipidemia/anxiety Complicates care, management, recovery and prognosis. Continue home medications as indicated. This note was generated with [employer] dictation software. It may contain incorrect words, spelling, and punctuation that were not noted in checking the note before signing. Inpatient E&M: 88610 Init Hosp L3
--- NOTE | 2020-02-17 06:41 | CT_ITS ---
STUDY: CTA CHEST REASON FOR EXAM: Female, 64 years old. Acute substernal chest pain and shortness of breath. History of lung carcinoma with recent chemotherapy RADIATION DOSAGE (If Supplied By Facility): CTDIvol = ( 11.12 ) mGy, DLP = ( 433.6 ) mGycm TECHNIQUE: The examination was performed with the intravenous administration of IV 100mL Isovue-370. Post-processing of the angiographic images was performed, with multiplanar reformation and 3D reconstruction. Individualized dose optimization techniques were used for this CT. COMPARISON: 2017, recent plain films FINDINGS: Normal enhancement of the main pulmonary artery and right and left pulmonary arteries. Normal enhancement of the bilateral peripheral pulmonary arteries. There is no demonstrated pulmonary embolism. There is atherosclerotic calcification of the aortic arch with tortuosity. There is no demonstrated aortic dissection. Sternal cerclage wires and vascular clips are present from a prior sternotomy and coronary artery bypass graft procedure (CABG). No significant axillary or superior mediastinal adenopathy. There is evidence of subcarinal lymphadenopathy which extends to the right perihilar region and surrounds and slightly narrows the right mainstem bronchus There is peribronchial thickening. The lungs are well expanded. Lung windows show underlying emphysema. There is diffuse airspace/groundglass opacifications in both upper lobes, there is a wedge-shaped consolidation in the right perihilar region extending from the hilum to the pleura, there is a free-flowing right pleural effusion and associated atelectasis. No suspicious noncalcified mass or nodule. Findings suggest a combination of consolidated infiltrate in the right mid lateral lung field with superimposed airspace opacifications that suggest multifocal pneumonitis or can also be seen with Covid pneumonia , or diffuse metastasis. The free-flowing pleural effusion on the right is concerning for malignant effusion. Normal chest wall structures. There are degenerative changes of thoracic spine. Normal visualized upper abdomen. CT/CTA Chest W/WO Contrast IMPRESSION: Wedge-shaped consolidation in the right mid lateral lung field extending from the right perihilar region to the pleural surface with air bronchograms suspicious for infiltrative pneumonia Subtle airspace opacifications in both upper lung gao suggests the possibility of superimposed Covid pneumonia. Concerning subcarinal lymphadenopathy extending to the right perihilar region surrounding the right mainstem bronchus and slightly narrowing is concerning for metastasis Right pleural effusion with associated atelectasis No demonstrated noncalcified mass or nodule Degenerative bony changes Remote CABG Electronically Signed: Raji Valdez MD at 11:09 EST , Service support ,
--- NOTE | 2020-02-17 07:32 | PCM.PN.HOSP ---
Reason for Visit: Septic shock Subjective: Patient is a 64-year-old recently discharged from the hospital following admission for cardiopulmonary arrest as a result of acute myocardial infarction (acute non-STEMI) for which she underwent angioplasty presented to the emergency department with fever. Imaging studies obtained on admission demonstrated Worsening right upper lobe pneumonia. Admitted to monitored bed for subsequent management Objective: GENERAL: cooperative HEENT: Atraumatic; EYES; Anicteric, Normal Conjunctiva NECK; supple, normal thyroid, RESPIRATORY: Diminished to auscultation CARDIOVASCULAR: Regular S1 S2, GI: soft, normoactive bowel sounds, : No Renal angle tenderness; EXTREMITIES: No edema, no clubbing, MUSCULOSKELETAL: no muscle waisting NEURO: Awake; no lateralizing signs. SKIN: No Rash PSYCH; Flat affect Vitals/I&O's: Vital Signs Temp Pulse Resp BP Pulse Ox 98.7 F 89 22 H 105/60 100 02/17/20 04:05 02/17/20 06:00 02/17/20 06:00 02/17/20 06:00 02/17/20 06:00 Oxygen Flow Rate (L/min) 15 Oxygen Delivery Method Non-Rebreather Weight: 64.6 kg Body Mass Index (BMI) 24.7 Finger Stick Blood Glucose 61 Intake and Output for Last 24 Hours 02/15/20 02/16/20 02/17/20 23:59 23:59 23:59 Intake Total 3912.05 / 3912.05 100 / 100 Output Total 50 / 50 300 / 300 Balance 3862.05 / 3862.05 -200 / -200 Microbiology Past 72 Hours 02/17/20 03:55 Stool C. difficile DNA Amplification - Final 02/17/20 02:25 Urine Catheter - Michaud Legionella Antigen - Final 02/17/20 02:25 Urine Catheter - Michaud Streptococcus pneumoniae Antigen (M - Final 02/16/20 16:45 Mucosa - Nose SARS-CoV-2 Antigen (Rapid) - Final Laboratory Results 02/16/20 16:40: WBC 17.2 H, RBC 3.47 L, Hgb 10.7 L, Hct 32.3 L, MCV 93.1, MCH 30.8, MCHC 33.1, RDW Std Deviation 46.7 H, RDW Coeff of Nehemiah 13.7, Plt Count 253, MPV 10.3, Immature Gran % (Auto) 1.000 H, Neut % (Auto) 76.3 H, Lymph % (Auto) 15.0 L, Mccormick % (Auto) 3.9, Eos % (Auto) 3.5, Baso % (Auto) 0.3, Absolute Neuts (auto) 13.1 H, Absolute Lymphs (auto) 2.57, Nucleated RBC % 0.1 02/16/20 16:40: PT 15.1 H, INR 1.2, APTT 41.1 H 02/16/20 16:40: Sodium 132 L, Potassium 4.4, Chloride 100, Carbon Dioxide 22.0, Anion Gap 10, BUN 16, Creatinine 1.08 H, Estim Creat Clear Calc 42.96, Est GFR (MDRD) Af Amer 65, Est GFR (MDRD) Non-Af 54 L, BUN/Creatinine Ratio 14.8, Glucose 81, Calcium 7.8 L, Total Bilirubin 0.80, AST 47 H, ALT 45, Alkaline Phosphatase 89, Troponin I 1.100 H*, Total Protein 6.3 L, Albumin 2.3 L, Globulin 4.0, Albumin/Globulin Ratio 0.6 L 02/16/20 16:40: B-Natriuretic Peptide 392.3 H 02/16/20 16:41: Lactic Acid 1.9 02/16/20 17:20: Urine Color Jada, Urine Clarity Sl. Cloudy, Urine pH 5.0, Ur Specific [place] 1.015, Urine Protein 30 H, Urine Glucose (UA) Normal, Urine Ketones 50 H, Urine Occult Blood 50 H, Urine Nitrite Negative, Urine Bilirubin Negative, Urine Urobilinogen Normal, Ur Leukocyte Esterase 25 H, Urine RBC 0-5 SEEN, Urine WBC 0-5 SEEN, Ur Squamous Epith Cells 0-5 SEEN, Urine Bacteria RARE, Hyaline Casts 0-5 SEEN, Urine Mucus RARE 02/16/20 17:20: Urine Color Cancelled, Urine Clarity Cancelled, Urine pH Cancelled, Ur Specific [place] Cancelled, U Specif Grav (Refrac) Cancelled, Urine Protein Cancelled, Urine Glucose (UA) Cancelled, Urine Ketones Cancelled, Urine Occult Blood Cancelled, Urine Nitrite Cancelled, Urine Bilirubin Cancelled, Urine Urobilinogen Cancelled, Ur Leukocyte Esterase Cancelled, Urine RBC Cancelled, Urine WBC Cancelled, Ur Squamous Epith Cells Cancelled, Ur Transition Epith Cell Cancelled, Ur Renal Epithelial Cell Cancelled, Calcium Oxalate Crystal Cancelled, Uric Acid Crystals Cancelled, Triple Phos Crystals Cancelled, Other Crystals Cancelled, Amorphous Sediment Cancelled, Urine Bacteria Cancelled, Hyaline Casts Cancelled, Fine Granular Casts Cancelled, Coarse Granular Casts Cancelled, Waxy Casts Cancelled, RBC Casts Cancelled, WBC Casts Cancelled, Urine Mucus Cancelled, Urine Trichomonas Cancelled, Urine Yeast Cancelled 02/17/20 02:25: MRSA (PCR) Negative 02/17/20 03:10: WBC 17.0 H, RBC 3.25 L, Hgb 10.0 L, Hct 31.9 L, MCV 98.2 D, MCH 30.8, MCHC 31.3 L D, RDW Std Deviation 50.8 H, RDW Coeff of Nehemiah 14.1, Plt Count 209, MPV 10.2, Immature Gran % (Auto) 3.100 H, Neut % (Auto) 89.8 H, Lymph % (Auto) 2.8 L, Mccormick % (Auto) 3.4, Eos % (Auto) 0.4, Baso % (Auto) 0.5, Absolute Neuts (auto) 15.3 H, Absolute Lymphs (auto) 0.47 L, Nucleated RBC % 0, Differential Comment SCANNED, Platelet Estimate ADEQUATE, Polychromasia RARE 02/17/20 03:10: Sodium 137, Potassium 4.8, Chloride 111 H, Carbon Dioxide 17.0 L, Anion Gap 9, BUN 16, Creatinine 0.77, Estim Creat Clear Calc 60.25, Est GFR (MDRD) Af Amer 97, Est GFR (MDRD) Non-Af 80, BUN/Creatinine Ratio 20.8 H, Glucose 70 L, Calcium 6.8 L, Magnesium 1.6 02/17/20 03:10: Phosphorus 4.8 02/17/20 06:11: POC Glucose 76 Current Medications Acetaminophen (Acetaminophen 325 Mg Tablet) 650 mg PO Q6H PRN PRN PRN Reason: Pain Score 1-10/Temp > 100.7 F Al Hydroxide/Mg Hydroxide (Mag Hydrox/Al Hydrox/Simeth 30 Ml Udc) 30 ml PO Q6H PRN PRN PRN Reason: Gastric Burning Albuterol Sulfate (Albuterol 2.5 Mg/3 Ml Vial.Neb.) 2.5 mg INHALATION Q2H PRN PRN PRN Reason: SOB/Wheezing Albuterol/Ipratropium (Ipratropium/Albuterol Sulfate 3 Ml Ampul.Neb) 3 ml INHALATION Q4H.RT REPLACED BY [facility] Last Admin: 02/17/20 02:11 Dose: 3 ml Documented by: Aspirin (Aspirin 81 Mg Tab.Chew) 81 mg PO DAILY REPLACED BY [facility] Atorvastatin Calcium (Atorvastatin Calcium 10 Mg Tablet) 10 mg PO QHS REPLACED BY [facility] Last Admin: 02/16/20 23:51 Dose: Not Given Documented by: Docusate Sodium (Docusate Sodium 100 Mg Capsule) 100 mg PO BID PRN PRN PRN Reason: Constipation Enoxaparin Sodium (Enoxaparin 40 Mg/0.4 Ml Syringe) 40 mg SC DAILY REPLACED BY [facility] Hydrocortisone Sodium Succinate (Hydrocortisone Sod Succinate 100 Mg/2 Ml Vial) 50 mg IV Q8 REPLACED BY [facility] Last Admin: 02/17/20 05:52 Dose: 50 mg Documented by: Sodium Chloride () 1,000 mls @ 100 mls/hr IV .Q10H REPLACED BY [facility] Last Admin: 02/16/20 22:00 Dose: 100 mls/hr Documented by: Piperacillin Sod/Tazobactam (Sod 3.375 gm/ Sodium Chloride) 50 mls @ 12.5 mls/hr IV Q8 REPLACED BY [facility] Stop: 02/24/20 06:01 Last Admin: 02/17/20 04:15 Dose: 12.5 mls/hr Documented by: Vancomycin IV Pharmacy to Dose (1 ea/ Sodium Chloride) 500 mls @ 250 mls/hr IV X1 PRN; Protocol PRN Reason: Rx to Dose Norepinephrine Bitartrate 8 mg (/ Sodium Chloride) 250 mls @ 9.375 mls/hr CONT INF .[id number] REPLACED BY [facility]; Protocol Vancomycin HCl () 500 mg in 100 mls @ 100 mls/hr IV Q12H REPLACED BY [facility] Last Infusion: 02/17/20 07:00 Dose: Infused Documented by: Melatonin (Melatonin 3 Mg Tablet) 3 mg PO QHS PRN PRN PRN Reason: INSOMNIA Ondansetron HCl (Ondansetron 4 Mg/2 Ml Vial) 4 mg IV Q8H PRN PRN PRN Reason: NAUSEA/VOMITING Sodium Chloride (0.9% Saline Lock 10 Ml Syringe) 10 - 40 ml IV UD PRN PRN Reason: SALINE FLUSH Ticagrelor (Ticagrelor 90 Mg Tablet) 90 mg PO BID REPLACED BY [facility] Last Admin: 02/16/20 23:50 Dose: Not Given Documented by: STROKE Vital Signs/Narrative: Vital Signs Temp Pulse Resp BP Pulse Ox 02/17/20 06:00 89 22 H 105/60 100 02/17/20 05:29 87 20 H 97 02/17/20 05:00 87 22 H 93/56 L 100 02/17/20 04:48 89 02/17/20 04:05 98.7 F 90 20 H 95/65 100 Medical Necessity - Tobacco Use Smoking Status: Former smoker Assessment/Plan All Active Problems (Last Updated 07/01/17 @ 12:07 by Lisa Ferreira) STEMI (ST elevation myocardial infarction) (Ruled-out) Cardiac arrest (Acute) Torsades de pointes (Acute) Ventricular tachycardia (Acute) NSTEMI (non-ST elevated myocardial infarction) (Acute) Cardiogenic shock (Acute) Patient is a 64-year-old recently discharged from the hospital following admission for cardiopulmonary arrest as a result of acute myocardial infarction (acute non-STEMI) for which she underwent angioplasty presented to the emergency department with fever. Imaging studies obtained on admission demonstrated Worsening right upper lobe pneumonia. Admitted to monitored bed for subsequent management 1. Acute hypoxic respiratory failure ?Secondary to right upper lobe pneumonia with gram-negative organisms (previous sputum cultures had grown E. coli and patient was discharged on Augmentin based on sensitivity) 2. Septic shock secondary to above Resuscitated with IV fluid started on Levophed in addition to broad-spectrum antibiotic therapy 3; diarrhea ?Suspected to be secondary to antibiotic induced diarrhea patient was kept in enteric isolation whilst to for C. difficile sent to rule out C. difficile colitis 4. Recent admission for acute non-STEMI ?Patient presented with cardiopulmonary arrest underwent successful left heart catheterization with PCI to SVG to OM patient has elevated troponin residual from recent admission 5. Coronary artery disease ?With previous CABG 6. Chronic congestive heart failure with reduced ejection fraction EF estimated to be 40%. Patient was discharged on beta-blockers and ANGIE inhibitors; ANGIE inhibitors and beta-blockers held in view of patient low blood pressure 7. COPD ?Aerosol treatments as needed 7. Adrenal insufficiency ?On steroids at home started on stress dose steroids?hydrocortisone 50 mg every 8 hours 8. DVT prophylaxis ?Lovenox Inpatient E&M: [id number] [facility] Hosp L3
[2020-02-17] MEDS: Enoxaparin 40 MG/0.4 ML Syringe SC (08:30)
[2020-02-17] MEDS: 0.9% Normal Saline 1,000 ML 100 ML IV ×2 (08:32→17:56)
--- NOTE | 2020-02-17 11:02 | NURSING ---
Patient down to CTA. Ativan admin per order. Vitals WNL. CTA done. Patient back in icu8 at 11:00.
[2020-02-17] MEDS: Aspirin 81 MG TAB.CHEW PO (11:14)
[2020-02-17] MEDS: TICAGRELOR 90 MG TABLET PO ×2 (11:14→20:19)
[2020-02-17] MEDS: LORazepam 0.5 MG Tablet PO (13:52)
[2020-02-17] MEDS: MELATONIN 3 MG TABLET PO (17:56)
[2020-02-17] MEDS: Acetaminophen 325 MG Tablet 650 MG PO (20:19)
[2020-02-17] MEDS: Atorvastatin Calcium 10 MG Tablet PO (20:19)
[2020-02-17] MEDS: oxyCODONE 5 MG Tablet PO (21:37)
[2020-02-17] MEDS: DiphenhydrAMINE 25 MG Capsule PO (21:37)
[2020-02-18] VITALS (34 sets, daily range): BP systolic 105–150; BP diastolic 58–139; PULSE 91–115; RESP 16–36; TEMP 37–37.7; O2SAT 90–99
[2020-02-18] MEDS: oxyCODONE 5 MG Tablet PO ×5 (02:38→22:11)
[2020-02-18] MEDS: DiphenhydrAMINE 25 MG Capsule PO ×2 (02:38→18:33)
[2020-02-18] MEDS: Ipratropium/Albuterol Sulfate 3 ML AMPUL.NEB INHALATION ×6 (03:06→23:59)
[2020-02-18] MEDS: Benzonatate 100 MG Capsule PO ×2 (04:34→18:33)
[2020-02-18 06:05] LABS: Absolute Lymphocyte Count 0.41 X10^3/uL (0.83-4.51); Absolute Neutrophil Count 11.2 X10^3/uL (2.0-7.7); Basophil# 0.02 X10^3/uL; Basophil% 0.2 % (0-1); Eosinophil# 0.01 X10^3/uL; Eosinophils% 0.1 % (0-5); Hemoglobin 8.4 g/dL (12.0-15.0); Lymphocyte # 0.41 X10^3/ul (4.0); Lymphocyte % 3.3 % (19-41); Mean Corp Hgb Conc 33.6 g/dL (32-36); Mean Corpuscular Hgb 31.2 pg (27.0-32.0); Mean Corpuscular Volume 92.9 fL (81-99); Mean Platelet Vol. 9.9 fl (6.2-12.0); Monocyte# 0.57 X10^3/uL; Monocyte% 4.6 % (0-10); NRBC Flagged by Analyzer 0 % (0-5); Neutrophil # 11.15 X10^3/uL (2.7-7.7); Neutrophil % 90.5 % (47-70); POSITIVE DIFFERENTIAL YES; Platelet Count 193 K/mm3 (150-450); RBC Distribution Width CV 14.3 % (11.6-14.6); RBC Distribution Width SD 48.4 fl (35.1-43.9); Red Blood Count 2.69 M/mm3 (4.2-5.4); White Blood Count 12.3 K/mm3 (4.4-11.0)
[2020-02-18 06:07] LABS: Differential Indicated SCAN CRITERIA MET
[2020-02-18 06:21] LABS: Anion Gap 6 (5-15); BUN 12 mg/dL (7-18); BUN/Creat Ratio 18.4 RATIO (10-20); Calcium,Total 7.6 mg/dL (8.5-10.1); Chloride 116 mmol/L (98-107); Creatinine, Serum 0.65 mg/dL (0.55-1.02); EST Glomerular Filtration Rate 97 mL/min (>60); Est Glom Filt Rate - Afr Amer 117 mL/min (>60); Estimated Creatinine Clearance 71.38 ml/min; Glucose 134 mg/dL (74-106); Potassium 3.3 mmol/L (3.5-5.1); Sodium Level 141 mmol/L (136-145)
[2020-02-18 06:22] LABS: Vancomycin, Trough Level 8.5 ug/mL (5.0-15.0)
[2020-02-18] MEDS: Vancomycin IV 500 MG/100 ML BAG 100 MG IV (06:27)
[2020-02-18] MEDS: Hydrocortisone Sod Succinate 100 MG/2 ML Vial 50 MG IV ×3 (06:38→22:02)
--- NOTE | 2020-02-18 07:18 | PCM.PN.INT ---
Subjective: Patient did okay overnight. Patient has remained hemodynamically stable and Levophed did not have to be initiated. Patient is reporting significant chest pain that she attributes to CPR. Patient's oxygenation status has slightly improved. No fever was noted overnight. Nursing reports bowel movement frequency has improved. General: Alert, Oriented x3, Cooperative, - - Mild conversational dyspnea. HEENT: Atraumatic, PERRLA, EOMI, Normocephalic, - - No scleral icterus or injection noted. Glasses not in place. Oral: Moist Mucosa, No Gingival or Mucosal Lesions/ Ulcerations Neck: Supple, No JVD, No Nodes, Trachea Midline Lungs: No rhonchi, No wheeze, No rales, Diminished, - - Tenderness to palpation parasternal Cardiovascular: Normal S1, Normal S2, No murmurs, No rub noted, No Gallop, Tachycardic Abdomen: Bowel Sounds Present, Soft, Non Tender, Non-Distended Extremities: No clubbing, No cyanosis, Capillary Refill Less than 3 Seconds, Edema - Trace lower extremity Skin: No rashes, No breakdown Musculoskeletal: No Tenderness to Palpation of Joints or Extremities Lymphatic: No Cervical, Supraclavicular, or Inguinal Adenopathy Neurological: Cranial nerves II-XII grossly intact, Neuro grossly intact, Motor Exam 5/5 strength throughout Psych/Mental Status: Alert and oriented to time, place, person, mood and affect Vital Signs Temp Pulse Resp BP Pulse Ox 37.0 C 98 22 H 107/75 94 02/18/20 04:00 02/18/20 04:54 02/18/20 04:00 02/18/20 04:00 02/18/20 04:00 Oxygen Flow Rate (L/min) 5 Oxygen Delivery Method Nasal Cannula Weight: 65.2 kg Body Mass Index (BMI) 24.7 Finger Stick Blood Glucose 61 Intake and Output for Last 24 Hours 02/16/20 02/17/20 02/18/20 23:59 23:59 23:59 Intake Total 3912.05 / 3912.05 3354.38 / 3354.38 50 / 50 Output Total 50 / 50 850 / 850 750 / 750 Balance 3862.05 / 3862.05 2504.38 / 2504.38 -700 / -700 Labs (Last 48 Hours) 02/16/20 02/16/20 02/16/20 16:40 16:40 16:40 WBC 17.2 H RBC 3.47 L Hgb 10.7 L Hct 32.3 L MCV 93.1 MCH 30.8 MCHC 33.1 RDW Std Deviation 46.7 H RDW Coeff of Nehemiah 13.7 Plt Count 253 MPV 10.3 Immature Gran % (Auto) 1.000 H Neut % (Auto) 76.3 H Lymph % (Auto) 15.0 L [place] % (Auto) 3.9 Eos % (Auto) 3.5 Baso % (Auto) 0.3 Absolute Neuts (auto) 13.1 H Absolute Lymphs (auto) 2.57 Nucleated RBC % 0.1 Differential Comment Platelet Estimate Polychromasia PT 15.1 H INR 1.2 APTT 41.1 H Sodium 132 L Potassium 4.4 Chloride 100 Carbon Dioxide 22.0 Anion Gap 10 BUN 16 Creatinine 1.08 H Estim Creat Clear Calc 42.96 Est GFR (MDRD) Af Amer 65 Est GFR (MDRD) Non-Af 54 L BUN/Creatinine Ratio 14.8 Glucose 81 Lactic Acid Calcium 7.8 L Phosphorus Magnesium Total Bilirubin 0.80 AST 47 H ALT 45 Alkaline Phosphatase 89 Troponin I 1.100 H* B-Natriuretic Peptide Total Protein 6.3 L Albumin 2.3 L Globulin 4.0 Albumin/Globulin Ratio 0.6 L Urine Color Urine Clarity Urine pH Ur Specific Dougherty U Specif Grav (Refrac) Urine Protein Urine Glucose (UA) Urine Ketones Urine Occult Blood Urine Nitrite Urine Bilirubin Urine Urobilinogen Ur Leukocyte Esterase Urine RBC Urine WBC Ur Squamous Epith Cells Ur Transition Epith Cell Ur Renal Epithelial Cell Calcium Oxalate Crystal Uric Acid Crystals Triple Phos Crystals Other Crystals Amorphous Sediment Urine Bacteria Hyaline Casts Fine Granular Casts Coarse Granular Casts Waxy Casts RBC Casts WBC Casts Urine Mucus Urine Trichomonas Urine Yeast Vancomycin Trough MRSA (PCR) POC Glucose 02/16/20 02/16/20 02/16/20 16:40 16:41 17:20 WBC RBC Hgb Hct MCV MCH MCHC RDW Std Deviation RDW Coeff of Nehemiah Plt Count MPV Immature Gran % (Auto) Neut % (Auto) Lymph % (Auto) [place] % (Auto) Eos % (Auto) Baso % (Auto) Absolute Neuts (auto) Absolute Lymphs (auto) Nucleated RBC % Differential Comment Platelet Estimate Polychromasia PT INR APTT Sodium Potassium Chloride Carbon Dioxide Anion Gap BUN Creatinine Estim Creat Clear Calc Est GFR (MDRD) Af Amer Est GFR (MDRD) Non-Af BUN/Creatinine Ratio Glucose Lactic Acid 1.9 Calcium Phosphorus Magnesium Total Bilirubin AST ALT Alkaline Phosphatase Troponin I B-Natriuretic Peptide 392.3 H Total Protein Albumin Globulin Albumin/Globulin Ratio Urine Color Jada Urine Clarity Sl. Cloudy Urine pH 5.0 Ur Specific Dougherty 1.015 U Specif Grav (Refrac) Urine Protein 30 H Urine Glucose (UA) Normal Urine Ketones 50 H Urine Occult Blood 50 H Urine Nitrite Negative Urine Bilirubin Negative Urine Urobilinogen Normal Ur Leukocyte Esterase 25 H Urine RBC 0-5 SEEN Urine WBC 0-5 SEEN Ur Squamous Epith Cells 0-5 SEEN Ur Transition Epith Cell Ur Renal Epithelial Cell Calcium Oxalate Crystal Uric Acid Crystals Triple Phos Crystals Other Crystals Amorphous Sediment Urine Bacteria RARE Hyaline Casts 0-5 SEEN Fine Granular Casts Coarse Granular Casts Waxy Casts RBC Casts WBC Casts Urine Mucus RARE Urine Trichomonas Urine Yeast Vancomycin Trough MRSA (PCR) POC Glucose 02/16/20 02/17/20 02/17/20 17:20 02:25 03:10 WBC 17.0 H RBC 3.25 L Hgb 10.0 L Hct 31.9 L MCV 98.2 D MCH 30.8 MCHC 31.3 L D RDW Std Deviation 50.8 H RDW Coeff of Nehemiah 14.1 Plt Count 209 MPV 10.2 Immature Gran % (Auto) 3.100 H Neut % (Auto) 89.8 H Lymph % (Auto) 2.8 L [place] % (Auto) 3.4 Eos % (Auto) 0.4 Baso % (Auto) 0.5 Absolute Neuts (auto) 15.3 H Absolute Lymphs (auto) 0.47 L Nucleated RBC % 0 Differential Comment SCANNED Platelet Estimate ADEQUATE Polychromasia RARE PT INR APTT Sodium Potassium Chloride Carbon Dioxide Anion Gap BUN Creatinine Estim Creat Clear Calc Est GFR (MDRD) Af Amer Est GFR (MDRD) Non-Af BUN/Creatinine Ratio Glucose Lactic Acid Calcium Phosphorus Magnesium Total Bilirubin AST ALT Alkaline Phosphatase Troponin I B-Natriuretic Peptide Total Protein Albumin Globulin Albumin/Globulin Ratio Urine Color Cancelled Urine Clarity Cancelled Urine pH Cancelled Ur Specific Doug[place] Cancelled U Specif Grav (Refrac) Cancelled Urine Protein Cancelled Urine Glucose (UA) Cancelled Urine Ketones Cancelled Urine Occult Blood Cancelled Urine Nitrite Cancelled Urine Bilirubin Cancelled Urine Urobilinogen Cancelled Ur Leukocyte Esterase Cancelled Urine RBC Cancelled Urine WBC Cancelled Ur Squamous Epith Cells Cancelled Ur Transition Epith Cell Cancelled Ur Renal Epithelial Cell Cancelled Calcium Oxalate Crystal Cancelled Uric Acid Crystals Cancelled Triple Phos Crystals Cancelled Other Crystals Cancelled Amorphous Sediment Cancelled Urine Bacteria Cancelled Hyaline Casts Cancelled Fine Granular Casts Cancelled Coarse Granular Casts Cancelled Waxy Casts Cancelled RBC Casts Cancelled WBC Casts Cancelled Urine Mucus Cancelled Urine Trichomonas Cancelled Urine Yeast Cancelled Vancomycin Trough MRSA (PCR) Negative POC Glucose 02/17/20 02/17/20 02/17/20 03:10 03:10 06:11 WBC RBC Hgb Hct MCV MCH MCHC RDW Std Deviation RDW Coeff of Nehemiah Plt Count MPV Immature Gran % (Auto) Neut % (Auto) Lymph % (Auto) [place] % (Auto) Eos % (Auto) Baso % (Auto) Absolute Neuts (auto) Absolute Lymphs (auto) Nucleated RBC % Differential Comment Platelet Estimate Polychromasia PT INR APTT Sodium 137 Potassium 4.8 Chloride 111 H Carbon Dioxide 17.0 L Anion Gap 9 BUN 16 Creatinine 0.77 Estim Creat Clear Calc 60.25 Est GFR (MDRD) Af Amer 97 Est GFR (MDRD) Non-Af 80 BUN/Creatinine Ratio 20.8 H Glucose 70 L Lactic Acid Calcium 6.8 L Phosphorus 4.8 Magnesium 1.6 Total Bilirubin AST ALT Alkaline Phosphatase Troponin I B-Natriuretic Peptide Total Protein Albumin Globulin Albumin/Globulin Ratio Urine Color Urine Clarity Urine pH Ur Specific Dougherty U Specif Grav (Refrac) Urine Protein Urine Glucose (UA) Urine Ketones Urine Occult Blood Urine Nitrite Urine Bilirubin Urine Urobilinogen Ur Leukocyte Esterase Urine RBC Urine WBC Ur Squamous Epith Cells Ur Transition Epith Cell Ur Renal Epithelial Cell Calcium Oxalate Crystal Uric Acid Crystals Triple Phos Crystals Other Crystals Amorphous Sediment Urine Bacteria Hyaline Casts Fine Granular Casts Coarse Granular Casts Waxy Casts RBC Casts WBC Casts Urine Mucus Urine Trichomonas Urine Yeast Vancomycin Trough MRSA (PCR) POC Glucose 76 02/18/20 02/18/20 02/18/20 05:45 05:45 05:45 WBC 12.3 H RBC 2.69 L Hgb 8.4 L Hct 25.0 L MCV 92.9 D MCH 31.2 MCHC 33.6 D RDW Std Deviation 48.4 H RDW Coeff of Nehemiah 14.3 Plt Count 193 MPV 9.9 Immature Gran % (Auto) 1.300 H Neut % (Auto) 90.5 H Lymph % (Auto) 3.3 L [place] % (Auto) 4.6 Eos % (Auto) 0.1 Baso % (Auto) 0.2 Absolute Neuts (auto) 11.2 H Absolute Lymphs (auto) 0.41 L Nucleated RBC % 0 Differential Comment Platelet Estimate Polychromasia PT INR APTT Sodium 141 Potassium 3.3 L Chloride 116 H Carbon Dioxide 19.0 L Anion Gap 6 BUN 12 Creatinine 0.65 Estim Creat Clear Calc 71.38 Est GFR (MDRD) Af Amer 117 Est GFR (MDRD) Non-Af 97 BUN/Creatinine Ratio 18.4 Glucose 134 H Lactic Acid Calcium 7.6 L Phosphorus Magnesium Total Bilirubin AST ALT Alkaline Phosphatase Troponin I B-Natriuretic Peptide Total Protein Albumin Globulin Albumin/Globulin Ratio Urine Color Urine Clarity Urine pH Ur Specific Dougherty U Specif Grav (Refrac) Urine Protein Urine Glucose (UA) Urine Ketones Urine Occult Blood Urine Nitrite Urine Bilirubin Urine Urobilinogen Ur Leukocyte Esterase Urine RBC Urine WBC Ur Squamous Epith Cells Ur Transition Epith Cell Ur Renal Epithelial Cell Calcium Oxalate Crystal Uric Acid Crystals Triple Phos Crystals Other Crystals Amorphous Sediment Urine Bacteria Hyaline Casts Fine Granular Casts Coarse Granular Casts Waxy Casts RBC Casts WBC Casts Urine Mucus Urine Trichomonas Urine Yeast Vancomycin Trough 8.5 MRSA (PCR) POC Glucose Microbiology 02/16/20 17:20 Urine, Clean Catch Urine Culture - Preliminary Culture exhibits no growth. 02/17/20 03:55 Stool Enteric Bacteriology - Final 02/17/20 03:55 Stool C. difficile DNA Amplification - Final 02/17/20 02:25 Urine Catheter - Michaud Legionella Antigen - Final 02/17/20 02:25 Urine Catheter - Michaud Streptococcus pneumoniae Antigen (M - Final 02/16/20 16:45 Mucosa - Nose SARS-CoV-2 Antigen (Rapid) - Final Clinical Impression(s) from Imaging Studies Chest CTA 02/17/20 06:41 IMPRESSION: Wedge-shaped consolidation in the right mid lateral lung field extending from the right perihilar region to the pleural surface with air bronchograms suspicious for infiltrative pneumonia Subtle airspace opacifications in both upper lung gao suggests the possibility of superimposed Covid pneumonia. Concerning subcarinal lymphadenopathy extending to the right perihilar region surrounding the right mainstem bronchus and slightly narrowing is concerning for metastasis Right pleural effusion with associated atelectasis No demonstrated noncalcified mass or nodule Degenerative bony changes Remote CABG Electronically Signed: Raji Valdez MD at 11:09 EST , Service support , Medical Necessity - Tobacco Use Smoking Status: Former smoker Assessment/Plan All Active Problems (Last Updated 07/01/17 @ 12:07 by Lisa Ferreira) STEMI (ST elevation myocardial infarction) (Ruled-out) Cardiac arrest (Acute) Torsades de pointes (Acute) Ventricular tachycardia (Acute) NSTEMI (non-ST elevated myocardial infarction) (Acute) Cardiogenic shock (Acute) RECOMMENDATIONS: 1. Continuing empiric antimicrobials, pending repeat infectious work-up. 2. Continue bronchodilators and steroids. 3. Likely transition to baseline hydrocortisone tomorrow 4. Wean FiO2 to maintain oxygen saturations at or above 90%. 5. Encourage incentive spirometer use and mobilize patient as tolerated. 6. Possible transfer from the intensive care unit later today 7. Aggressive incentive spirometer and pain control given costochondritis IMPRESSIONS: 1. Acute on chronic hypoxemic respiratory failure The patient was just discharged from the hospital on February 14 after having been admitted with respiratory failure as a consequence of acute cardiac arrest, necessitating revascularization. The patient was also noted to have an aspiration pneumonia during that hospitalization, which was being treated with antimicrobials. She does have an apparent history of COPD of unknown severity along with a baseline 2 L/min oxygen requirement. We will continue with antimicrobials pending infectious work-up. CTA of the chest does show a wedge-shaped defect which may be secondary to infectious etiology versus trauma secondary to CPR. Okay to continue with steroids for now. 2. History of COPD of unknown severity/history of tobacco dependency Continue scheduled bronchodilator therapy. Wean supplemental oxygen as tolerated. The patient would likely benefit from formal work-up in the pulmonary medicine clinic following discharge. 3. History of coronary artery disease status post CABG Continue current medical management per cardiology recommendations. 4. History of adrenal insufficiency The patient does have a history of adrenal insufficiency and is on baseline hydrocortisone therapy in her home environment. We will continue with stress dose steroids for another 24 hours before transitioning to baseline dosing. 5. Hypertension/hyperlipidemia/anxiety/costochondritis from CPR Complicates care, management, recovery and prognosis. Continue home medications as indicated. Inpatient E&M: [id number] [facility] Hosp L3
[2020-02-18] MEDS: Aspirin 81 MG TAB.CHEW PO (07:33)
[2020-02-18] MEDS: 0.9% Normal Saline 1,000 ML 100 ML IV ×2 (07:33→15:38)
[2020-02-18] MEDS: 0.9% Saline Lock 10 ML Syringe IV ×2 (07:34→21:58)
[2020-02-18] MEDS: TICAGRELOR 90 MG TABLET PO ×2 (07:35→22:03)
[2020-02-18] MEDS: Enoxaparin 40 MG/0.4 ML Syringe SC (07:35)
--- NOTE | 2020-02-18 08:05 | PCM.RX.CS ---
Consult Pharmacy has been consulted to manage selected antiobiotic: Vancomycin Type of Consult: Follow-up Suspected Infection: Pneumonia Prior Doses of Antibiotics Received/Current Regimen: Currently on 500mg iv q12h. Labs: Sodium 141 mmol/L (136-145) 02/18/20 05:45 Potassium 3.3 mmol/L (3.5-5.1) L 02/18/20 05:45 Chloride 116 mmol/L (98-107) H 02/18/20 05:45 Carbon Dioxide 19.0 mmol/L (21.0-32.0) L 02/18/20 05:45 Anion Gap 6 (5-15) 02/18/20 05:45 BUN 12 mg/dL (7-18) 02/18/20 05:45 Creatinine 0.65 mg/dL (0.55-1.02) 02/18/20 05:45 Est GFR (MDRD) Af Amer 117 mL/min (>60) 02/18/20 05:45 Est GFR (MDRD) Non-Af 97 mL/min (>60) 02/18/20 05:45 BUN/Creatinine Ratio 18.4 RATIO (10-20) 02/18/20 05:45 Glucose 134 mg/dL (74-106) H 02/18/20 05:45 Vancomycin Trough 8.5 ug/mL (5.0-15.0) 02/18/20 05:45 Microbiology: Microbiology 02/16/20 17:20 Urine, Clean Catch Urine Culture - Preliminary Culture exhibits no growth. 02/17/20 03:55 Stool Enteric Bacteriology - Final 02/17/20 03:55 Stool C. difficile DNA Amplification - Final 02/17/20 02:25 Urine Catheter - Michaud Legionella Antigen - Final 02/17/20 02:25 Urine Catheter - Michaud Streptococcus pneumoniae Antigen (M - Final 02/16/20 16:45 Mucosa - Nose SARS-CoV-2 Antigen (Rapid) - Final Weight used for dosin kg Estimated Creatinine Clearance: ~96ml/min Goal Trough: 15-20 mcg/mL Pharmacy Plan for Drug Dosing: Renal function improving from Cr 1.08 to 0.65. CrCl calculated to be ~96ml/min for adjusted body weight of 60.1kg. Today's vancomycin trough was 8.5 (goal range 15-20mcg/ml). Will increase dose to 1gm iv q12h and get a repeat trough before 4th dose of new regimen. Pharmacy Service will continue to monitor and adjust dosing as required. Follow-Up Labs: Trough Vancomycin - 1.6.21 @0630 before 0700 dose
--- NOTE | 2020-02-18 11:07 | PCM.PN.HOSP ---
Subjective: Patient seen and examined. She was admitted with a complaitn of worsening shortness of breath, and is being managed for right upper lobe pneumonia. She still complains of shortness of breath this morning, though she says it is getting better. She is on IV vancomycin and zosyn for health associated pneumonia. Review of systems is otherwise negative. She is on 5L of oxygen. Potassium is 3.3, and she is mildly tachycardic. Hb is 8.4, and wbc down to 12.3. Vitals/I&O's: Vital Signs Temp Pulse Resp BP Pulse Ox 98.6 F 107 H 16 146/94 H 94 02/18/20 04:00 02/18/20 08:00 02/18/20 08:00 02/18/20 08:00 02/18/20 08:00 Oxygen Flow Rate (L/min) 5 Oxygen Delivery Method Room Air Weight: 143 lb 11.862 oz Body Mass Index (BMI) 24.7 Finger Stick Blood Glucose 61 Intake and Output for Last 24 Hours 02/16/20 02/17/20 02/18/20 23:59 23:59 23:59 Intake Total 3912.05 / 3912.05 3354.38 / 3354.38 1630 / 1630 Output Total 50 / 50 850 / 850 750 / 750 Balance 3862.05 / 3862.05 2504.38 / 2504.38 880 / 880 General: Alert, Oriented x3, Cooperative, No apparent distress HEENT: Atraumatic, PERRLA, EOMI, Normocephalic Oral: Dry Mucosa Neck: Supple, No JVD, Negative Carotid Bruits Lungs: - - mild wheezing adn crackles in all lung gao; on 5L of oxygen by nasal canula Cardiovascular: Regular Rhythm, Normal S1, Normal S2, No murmurs, Tachycardic Abdomen: Bowel Sounds Present, Soft, Non Tender Extremities: No clubbing, No cyanosis, No edema, Capillary Refill Less than 3 Seconds Skin: No rashes, No breakdown Musculoskeletal: No Tenderness to Palpation of Joints or Extremities Lymphatic: No Cervical, Supraclavicular, or Inguinal Adenopathy Neurological: Cranial nerves II-XII grossly intact, Neuro grossly intact, Motor Exam 5/5 strength throughout Psych/Mental Status: Normal Affect, Appropriate, Alert and oriented to time, place, person, mood and affect Microbiology Past 72 Hours 02/16/20 17:20 Urine, Clean Catch Urine Culture - Preliminary Culture exhibits no growth. 02/17/20 03:55 Stool Enteric Bacteriology - Final 02/17/20 03:55 Stool C. difficile DNA Amplification - Final 02/17/20 02:25 Urine Catheter - Michaud Legionella Antigen - Final 02/17/20 02:25 Urine Catheter - Michaud Streptococcus pneumoniae Antigen (M - Final 02/16/20 16:45 Mucosa - Nose SARS-CoV-2 Antigen (Rapid) - Final Laboratory Results 02/18/20 05:45: WBC 12.3 H, RBC 2.69 L, Hgb 8.4 L, Hct 25.0 L, MCV 92.9 D, MCH 31.2, MCHC 33.6 D, RDW Std Deviation 48.4 H, RDW Coeff of Nehemiah 14.3, Plt Count 193, MPV 9.9, Immature Gran % (Auto) 1.300 H, Neut % (Auto) 90.5 H, Lymph % (Auto) 3.3 L, [place] % (Auto) 4.6, Eos % (Auto) 0.1, Baso % (Auto) 0.2, Absolute Neuts (auto) 11.2 H, Absolute Lymphs (auto) 0.41 L, Nucleated RBC % 0 02/18/20 05:45: Sodium 141, Potassium 3.3 L, Chloride 116 H, Carbon Dioxide 19.0 L, Anion Gap 6, BUN 12, Creatinine 0.65, Estim Creat Clear Calc 71.38, Est GFR (MDRD) Af Amer 117, Est GFR (MDRD) Non-Af 97, BUN/Creatinine Ratio 18.4, Glucose 134 H, Calcium 7.6 L 02/18/20 05:45: Vancomycin Trough 8.5 Diagnostic Data Chest X-Ray 02/16/20 17:20 IMPRESSION: Worsening right upper lobe pneumonia. Electronically Signed: Brnadon Hernandez MD (Brooks) at 17:53 EST , Service support , Chest CTA 02/17/20 06:41 IMPRESSION: Wedge-shaped consolidation in the right mid lateral lung field extending from the right perihilar region to the pleural surface with air bronchograms suspicious for infiltrative pneumonia Subtle airspace opacifications in both upper lung gao suggests the possibility of superimposed Covid pneumonia. Concerning subcarinal lymphadenopathy extending to the right perihilar region surrounding the right mainstem bronchus and slightly narrowing is concerning for metastasis Right pleural effusion with associated atelectasis No demonstrated noncalcified mass or nodule Degenerative bony changes Remote CABG Electronically Signed: Raji Valdez MD at 11:09 EST , Service support , Current Medications Acetaminophen (Acetaminophen 325 Mg Tablet) 650 mg PO Q6H PRN PRN PRN Reason: Pain Score 1-10/Temp > 100.7 F Last Admin: 02/17/20 20:19 Dose: 650 mg Documented by: Al Hydroxide/Mg Hydroxide (Mag Hydrox/Al Hydrox/Simeth 30 Ml Udc) 30 ml PO Q6H PRN PRN PRN Reason: Gastric Burning Albuterol Sulfate (Albuterol 2.5 Mg/3 Ml Vial.Neb.) 2.5 mg INHALATION Q2H PRN PRN PRN Reason: SOB/Wheezing Albuterol/Ipratropium (Ipratropium/Albuterol Sulfate 3 Ml Ampul.Neb) 3 ml INHALATION Q4H.RT [facility] Last Admin: 02/18/20 06:52 Dose: 3 ml Documented by: Aspirin (Aspirin 81 Mg Tab.Chew) 81 mg PO DAILY [facility] Last Admin: 02/18/20 07:33 Dose: 81 mg Documented by: Atorvastatin Calcium (Atorvastatin Calcium 10 Mg Tablet) 10 mg PO QHS [facility] Last Admin: 02/17/20 20:19 Dose: 10 mg Documented by: Benzonatate (Benzonatate 100 Mg Capsule) 100 mg PO TID PRN PRN PRN Reason: COUGH Last Admin: 02/18/20 04:34 Dose: 100 mg Documented by: Diphenhydramine HCl (Diphenhydramine 25 Mg Capsule) 25 mg PO BID PRN PRN PRN Reason: ITCHING Last Admin: 02/18/20 02:38 Dose: 25 mg Documented by: Docusate Sodium (Docusate Sodium 100 Mg Capsule) 100 mg PO BID PRN PRN PRN Reason: Constipation Enoxaparin Sodium (Enoxaparin 40 Mg/0.4 Ml Syringe) 40 mg SC DAILY [facility] Last Admin: 02/18/20 07:35 Dose: 40 mg Documented by: Hydrocortisone Sodium Succinate (Hydrocortisone Sod Succinate 100 Mg/2 Ml Vial) 50 mg IV Q8 [facility] Last Admin: 02/18/20 06:38 Dose: 50 mg Documented by: Sodium Chloride () 1,000 mls @ 100 mls/hr IV .Q10H [facility] Last Admin: 02/18/20 07:33 Dose: 100 mls/hr Documented by: Piperacillin Sod/Tazobactam (Sod 3.375 gm/ Sodium Chloride) 50 mls @ 12.5 mls/hr IV Q8 [facility] Stop: 02/24/20 06:01 Last Admin: 02/18/20 07:34 Dose: 12.5 mls/hr Documented by: Vancomycin IV Pharmacy to Dose (1 ea/ Sodium Chloride) 500 mls @ 250 mls/hr IV X1 PRN; Protocol PRN Reason: Rx to Dose Norepinephrine Bitartrate 8 mg (/ Sodium Chloride) 250 mls @ 9.375 mls/hr CONT INF .[id number] [facility]; Protocol Last Admin: 02/18/20 07:34 Dose: Not Given Documented by: Vancomycin HCl (Vancomycin) 1,000 mg in 200 mls @ 200 mls/hr IV Q12H [facility] Melatonin (Melatonin 3 Mg Tablet) 3 mg PO QHS PRN PRN PRN Reason: INSOMNIA Last Admin: 02/17/20 17:56 Dose: 3 mg Documented by: Ondansetron HCl (Ondansetron 4 Mg/2 Ml Vial) 4 mg IV Q8H PRN PRN PRN Reason: NAUSEA/VOMITING Oxycodone HCl (Oxycodone 5 Mg Tablet) 5 mg PO Q4H PRN PRN PRN Reason: Pain Score 6-10 Last Admin: 02/18/20 06:38 Dose: 5 mg Documented by: Potassium Chloride (Potassium Chloride 20 Meq Tablet) 20 meq PO BIDCM [facility] Stop: 02/18/20 17:01 Last Admin: 02/18/20 08:14 Dose: 20 meq Documented by: Sodium Chloride (0.9% Saline Lock 10 Ml Syringe) 10 - 40 ml IV UD PRN PRN Reason: SALINE FLUSH Last Admin: 02/18/20 07:34 Dose: 10 ml Documented by: Ticagrelor (Ticagrelor 90 Mg Tablet) 90 mg PO BID [facility] Last Admin: 02/18/20 07:35 Dose: 90 mg Documented by: STROKE Vital Signs/Narrative: Vital Signs Pulse Resp BP Pulse Ox 02/18/20 08:00 107 H 16 146/94 H 94 Medical Necessity - Tobacco Use Smoking Status: Former smoker Assessment/Plan All Active Problems (Last Updated 07/01/17 @ 12:07 by Lisa Ferreira) STEMI (ST elevation myocardial infarction) (Ruled-out) Cardiac arrest (Acute) Torsades de pointes (Acute) Ventricular tachycardia (Acute) NSTEMI (non-ST elevated myocardial infarction) (Acute) Cardiogenic shock (Acute) # Acute hypoxic respiratory failure Due to health associated pneumonia. Has right upper lobe pneumonia due to gram-negative organisms with previous sputum cultures growing E. coli. Currently on Zosyn and vancomycin On 5 L of oxygen. Titrate oxygen to maintain saturation above 90%. Blood cultures and sputum cultures pending. On breathing treatment with bronchodilators. #Septic shock due to health associated pneumonia: As above. Also on IV Levophed for hemodynamic support. Critical care on board. On IV hydrocortisone 2 mg every 8 #Diarrhea: Improving. C. difficile screen was negative. #Tonic heart failure with reduced ejection fraction: EF is 40%. Lasix, ANGIE inhibitor and beta-nakul on hold on account of septic shock. #Recent non-STEMI Was recently admitted for cardiopulmonary arrest due to non-STEMI and had left heart cath with PCI and stent placement to SVG to OM. Troponin was elevated on admission but this is likely residual from her recent cardiopulmonary arrest due to nonstemi. Cath with stent placement just about a week ago. On aspirin, statin and Brilinta. ANGIE inhibitor and beta-nakul on hold on account of hypotension and septic shock. #Hypokalemia: K is 3.3 today. Will replace per protocol and monitor # Anemia: Hb is 8.4. Was 10 on admission. This could be hemodilution also also indicis of fallen with hydration. Will monitor and if it drops further, will work-up for anemia. #History of adrenal insufficiency: Currently on stress dose of hydrocortisone #COPD: On breathing treatments with bronchodilators. Currently on oxygen as well due to respiratory failure from pneumonia DVT prophylaxis: loveno Inpatient E&M: [id number] [facility] L[facility]
[2020-02-18] MEDS: fentaNYL 100 MCG/2 ML Ampul 25 MCG IV (15:00)
--- NOTE | 2020-02-18 19:30 | CPS ---
Pt complaining of difficulty breathing and feeling tired and wanting to give up. RR in 30's and wheezing and coarse breath sounds heard. RN notified by phone and AVAPS VT450 initiated. Pt tolerating well.
--- NOTE | 2020-02-18 21:00 | RAD_ITS ---
STUDY: X-RAY CHEST REASON FOR EXAM: Female, 64 years old. SOB TECHNIQUE: Frontal view COMPARISON: 02/16/2020 FINDINGS: Stable sternotomy wires. The lungs are expanded. Bilateral patchy infiltrates with interval worsening, right more than left. Normal size heart. Normal mediastinum and mary. Normal visualized pulmonary arteries. Normal visualized aortic arch and descending thoracic aorta. Normal visualized thoracic spine. Normal visualized ribs, clavicles, and shoulders. There is no demonstrated abnormality of the visualized soft tissue structures of the upper abdomen. RAD/Chest 1 View (Portable) IMPRESSION: Worsening bilateral infiltrates. Electronically Signed: Boo Esparza DO at 22:51 EST Tel [phone], Service support ,
[2020-02-18] MEDS: Atorvastatin Calcium 10 MG Tablet PO (22:03)
[2020-02-18] MEDS: Ondansetron 4 MG/2 ML Vial IV (22:11)
[2020-02-18] MEDS: Furosemide 20 MG/2 ML VIAL IV (22:26)
[2020-02-18] MEDS: MELATONIN 3 MG TABLET PO (22:35)
[2020-02-18 23:26] LABS: BNP,B-Type NATRIURETIC PEPTIDE 1472.3 pg/mL (0-100)
[2020-02-19] VITALS (29 sets, daily range): BP systolic 86–157; BP diastolic 59–110; PULSE 88–127; RESP 14–29; TEMP 36.9–39.9; O2SAT 94–99
[2020-02-19] MEDS: Ipratropium/Albuterol Sulfate 3 ML AMPUL.NEB INHALATION ×6 (04:02→23:49)
[2020-02-19 05:34] LABS: Absolute Lymphocyte Count 0.68 X10^3/uL (0.83-4.51); Absolute Neutrophil Count 13.2 X10^3/uL (2.0-7.7); Basophil# 0.02 X10^3/uL; Basophil% 0.1 % (0-1); Hematocrit 28.3 % (37-47); Hemoglobin 9.1 g/dL (12.0-15.0); Lymphocyte # 0.68 X10^3/ul (4.0); Lymphocyte % 4.7 % (19-41); Mean Corp Hgb Conc 32.2 g/dL (32-36); Mean Corpuscular Hgb 30.3 pg (27.0-32.0); Mean Corpuscular Volume 94.3 fL (81-99); Mean Platelet Vol. 9.9 fl (6.2-12.0); Monocyte# 0.53 X10^3/uL; Monocyte% 3.6 % (0-10); NRBC Flagged by Analyzer 0 % (0-5); Neutrophil # 13.16 X10^3/uL (2.7-7.7); Neutrophil % 90.4 % (47-70); Platelet Count 243 K/mm3 (150-450); RBC Distribution Width CV 14.8 % (11.6-14.6); RBC Distribution Width SD 51.9 fl (35.1-43.9); White Blood Count 14.6 K/mm3 (4.4-11.0)
[2020-02-19] MEDS: oxyCODONE 5 MG Tablet PO ×3 (05:37→20:45)
[2020-02-19 05:50] LABS: Anion Gap 7 (5-15); BUN 17 mg/dL (7-18); BUN/Creat Ratio 25.6 RATIO (10-20); Calcium,Total 8.1 mg/dL (8.5-10.1); Chloride 108 mmol/L (98-107); Creatinine, Serum 0.66 mg/dL (0.55-1.02); EST Glomerular Filtration Rate 95 mL/min (>60); Est Glom Filt Rate - Afr Amer 115 mL/min (>60); Glucose 109 mg/dL (74-106); Potassium 3.3 mmol/L (3.5-5.1); Sodium Level 139 mmol/L (136-145)
[2020-02-19] MEDS: Hydrocortisone Sod Succinate 100 MG/2 ML Vial 50 MG IV (05:55)
[2020-02-19] MEDS: Benzonatate 100 MG Capsule PO ×3 (06:03→20:42)
[2020-02-19] MEDS: Furosemide 20 MG/2 ML VIAL IV (06:34)
[2020-02-19] MEDS: QUEtiapine 25 MG Tablet PO ×2 (06:34→20:44)
--- NOTE | 2020-02-19 07:42 | PN_ITS ---
Subjective: Patient seen and examined. She still remains short of breath. She still tachypneic as well as mildly tachycardic. Her oxygen requirements have gone up to 13 L. Review systems otherwise negative. Potassium is 3.3 today. BNP was also noted to be markedly elevated at 1472 so fluids were stopped and she is being diuresed with IV Lasix. She is in cumulative positive balance by 7.3 L. Vitals/I&O's: Vital Signs Temp Pulse Resp BP Pulse Ox 98.7 F 105 H 27 H 122/78 H 97 02/19/20 03:00 02/19/20 07:00 02/19/20 07:00 02/19/20 07:00 02/19/20 07:00 Oxygen Flow Rate (L/min) 13 Oxygen Delivery Method Nasal Cannula Weight: 143 lb 11.862 oz Body Mass Index (BMI) 24.7 Finger Stick Blood Glucose 61 Intake and Output for Last 24 Hours 02/17/20 02/18/20 02/19/20 23:59 23:59 23:59 Intake Total 3354.38 / 3354.38 3871.67 / 3871.67 50 / 50 Output Total 850 / 850 1900 / 2625 1075 / 1075 Balance 2504.38 / 2504.38 1971.67 / 1246.67 -1025 / -1025 General: Alert, Oriented x3, Cooperative, No apparent distress HEENT: Atraumatic, PERRLA, EOMI, Normocephalic Oral: Dry Mucosa Neck: Supple, No JVD, Negative Carotid Bruits Lungs: - - mild wheezing adn crackles in all lung gao; on 13L of oxygen by nasal canula Cardiovascular: Regular Rhythm, Normal S1, Normal S2, No murmurs, Tachycardic Abdomen: Bowel Sounds Present, Soft, Non Tender Extremities: No clubbing, No cyanosis, No edema, Capillary Refill Less than 3 Seconds Skin: No rashes, No breakdown Musculoskeletal: No Tenderness to Palpation of Joints or Extremities Lymphatic: No Cervical, Supraclavicular, or Inguinal Adenopathy Neurological: Cranial nerves II-XII grossly intact, Neuro grossly intact, Motor Exam 5/5 strength throughout Psych/Mental Status: Normal Affect, Appropriate, Alert and oriented to time, place, person, mood and affect Microbiology Past 72 Hours 02/16/20 16:41 Blood Culture (Wb) - Anticubital Left Blood Culture - Preliminary No growth in 48 hours. 02/16/20 16:40 Blood Culture (Wb) - Right Hand Blood Culture - Preliminary No growth in 48 hours. 02/16/20 17:20 Urine, Clean Catch Urine Culture - Preliminary Culture exhibits no growth. 02/17/20 03:55 Stool Enteric Bacteriology - Final 02/17/20 03:55 Stool C. difficile DNA Amplification - Final 02/17/20 02:25 Urine Catheter - Michaud Legionella Antigen - Final 02/17/20 02:25 Urine Catheter - Michaud Streptococcus pneumoniae Antigen (M - Final 02/16/20 16:45 Mucosa - Nose SARS-CoV-2 Antigen (Rapid) - Final Laboratory Results 02/18/20 22:50: B-Natriuretic Peptide 1472.3 H 02/19/20 05:25: WBC 14.6 H, RBC 3.00 L, Hgb 9.1 L, Hct 28.3 L, MCV 94.3, MCH 30.3, MCHC 32.2, RDW Std Deviation 51.9 H, RDW Coeff of Nehemiah 14.8 H, Plt Count 243, MPV 9.9, Immature Gran % (Auto) 1.200 H, Neut % (Auto) 90.4 H, Lymph % (Auto) 4.7 L, [place] % (Auto) 3.6, Eos % (Auto) 0.0, Baso % (Auto) 0.1, Absolute Neuts (auto) 13.2 H, Absolute Lymphs (auto) 0.68 L, Nucleated RBC % 0 02/19/20 05:25: Sodium 139, Potassium 3.3 L, Chloride 108 H, Carbon Dioxide 24.0, Anion Gap 7, BUN 17, Creatinine 0.66, Estim Creat Clear Calc 70.30, Est GFR (MDRD) Af Amer 115, Est GFR (MDRD) Non-Af 95, BUN/Creatinine Ratio 25.6 H, Glucose 109 H, Calcium 8.1 L Current Medications Acetaminophen (Acetaminophen 325 Mg Tablet) 650 mg PO Q6H PRN PRN PRN Reason: Pain Score 1-10/Temp > 100.7 F Last Admin: 02/17/20 20:19 Dose: 650 mg Documented by: Al Hydroxide/Mg Hydroxide (Mag Hydrox/Al Hydrox/Simeth 30 Ml Udc) 30 ml PO Q6H PRN PRN PRN Reason: Gastric Burning Albuterol Sulfate (Albuterol 2.5 Mg/3 Ml Vial.Neb.) 2.5 mg INHALATION Q2H PRN PRN PRN Reason: SOB/Wheezing Albuterol/Ipratropium (Ipratropium/Albuterol Sulfate 3 Ml Ampul.Neb) 3 ml INHALATION Q4H.RT [facility] Last Admin: 02/19/20 04:02 Dose: 3 ml Documented by: Aspirin (Aspirin 81 Mg Tab.Chew) 81 mg PO DAILY [facility] Last Admin: 02/18/20 07:33 Dose: 81 mg Documented by: Atorvastatin Calcium (Atorvastatin Calcium 10 Mg Tablet) 10 mg PO QHS [facility] Last Admin: 02/18/20 22:03 Dose: 10 mg Documented by: Benzonatate (Benzonatate 100 Mg Capsule) 100 mg PO TID PRN PRN PRN Reason: COUGH Last Admin: 02/19/20 06:03 Dose: 100 mg Documented by: Diphenhydramine HCl (Diphenhydramine 25 Mg Capsule) 25 mg PO BID PRN PRN PRN Reason: ITCHING Last Admin: 02/18/20 18:33 Dose: 25 mg Documented by: Docusate Sodium (Docusate Sodium 100 Mg Capsule) 100 mg PO BID PRN PRN PRN Reason: Constipation Enoxaparin Sodium (Enoxaparin 40 Mg/0.4 Ml Syringe) 40 mg SC DAILY [facility] Last Admin: 02/18/20 07:35 Dose: 40 mg Documented by: Hydrocortisone Sodium Succinate (Hydrocortisone Sod Succinate 100 Mg/2 Ml Vial) 50 mg IV Q8 [facility] Last Admin: 02/19/20 05:55 Dose: 50 mg Documented by: Piperacillin Sod/Tazobactam (Sod 3.375 gm/ Sodium Chloride) 50 mls @ 12.5 mls/hr IV Q8 [facility] Stop: 02/24/20 06:01 Last Admin: 02/19/20 05:38 Dose: 12.5 mls/hr Documented by: Potassium Chloride () 10 meq in 100 mls @ 100 mls/hr IV BOLUS Q1H [facility] Stop: 02/19/20 11:59 Melatonin (Melatonin 3 Mg Tablet) 3 mg PO QHS PRN PRN PRN Reason: INSOMNIA Last Admin: 02/18/20 22:35 Dose: 3 mg Documented by: Ondansetron HCl (Ondansetron 4 Mg/2 Ml Vial) 4 mg IV Q8H PRN PRN PRN Reason: NAUSEA/VOMITING Last Admin: 02/18/20 22:11 Dose: 4 mg Documented by: Oxycodone HCl (Oxycodone 5 Mg Tablet) 5 mg PO Q4H PRN PRN PRN Reason: Pain Score 6-10 Last Admin: 02/19/20 05:37 Dose: 5 mg Documented by: Potassium Chloride ([facility] 20 [facility]t) [facility] Stop: 02/19/20 17:01 Quetiapine Fumarate (Quetiapine 25 Mg Tablet) 25 mg PO BID [facility] Last Admin: 02/19/20 06:34 Dose: 25 mg Documented by: Sodium Chloride (0.9% Saline Lock 10 Ml Syringe) 10 - 40 ml IV UD PRN PRN Reason: SALINE FLUSH Last Admin: 02/18/20 21:58 Dose: 20 ml Documented by: Ticagrelor (Ticagrelor 90 Mg Tablet) 90 mg PO BID [facility] Last Admin: 02/18/20 22:03 Dose: 90 mg Documented by: STROKE Vital Signs/Narrative: Vital Signs Pulse Resp BP Pulse Ox 02/19/20 07:00 105 H 27 H 122/78 H 97 02/19/20 06:00 94 19 H 135/71 H 95 02/19/20 05:00 90 16 113/72 97 02/19/20 04:05 96 02/19/20 04:02 88 20 H 96 02/19/20 04:00 91 17 121/74 H 97 Medical Necessity - Tobacco Use Smoking Status: Former smoker Assessment/Plan All Active Problems (Last Updated 07/01/17 @ 12:07 by Lisa Ferreira) STEMI (ST elevation myocardial infarction) (Ruled-out) Cardiac arrest (Acute) Torsades de pointes (Acute) Ventricular tachycardia (Acute) NSTEMI (non-ST elevated myocardial infarction) (Acute) Cardiogenic shock (Acute) # Acute hypoxic respiratory failure * Due to health associated pneumonia. * Has right upper lobe pneumonia due to gram-negative organisms with previous sputum cultures growing E. coli. * Currently on Zosyn and vancomycin * Now on 13L of oxygen. Titrate oxygen to maintain saturation above 90%. * Blood cultures and sputum cultures pending. * On breathing treatment with bronchodilators. * #Septic shock due to health associated pneumonia: * As above. Also on IV Levophed for hemodynamic support. * Critical care on board. * On IV hydrocortisone 50 mg every 8hrs * #Diarrhea: Improving. C. difficile screen was negative. #Acute on chronic heart failure with reduced ejection fraction: * EF is 40%. BNP is >1400 * ANGIE inhibitor and beta-nakul on hold on account of septic shock. * receiving IV lasix #Recent non-STEMI * Was recently admitted for cardiopulmonary arrest due to non-STEMI and had left heart cath with PCI and stent placement to SV to . * Troponin was elevated on admission but this is likely residual from her recent cardiopulmonary arrest due to nonstemi. Cath with stent placement just about a week ago. * On aspirin, statin and Brilinta. ANGIE inhibitor and beta-nakul on hold on account of hypotension and septic shock. * #Hypokalemia: K is still 3.3 today. Will replace per protocol and monitor # Anemia: * Hb is up to 9.1 today, from 8.4 yesterday * will continue monitoring * #History of adrenal insufficiency: Currently on stress dose of hydrocortisone #COPD: On breathing treatments with bronchodilators. Currently on oxygen as well due to respiratory failure from pneumonia DVT prophylaxis: lovenox Inpatient E&M: [id number] [place] [id number]
[2020-02-19] MEDS: Potassium Chloride 10mEq/100mL 10 MEQ/100 ML IV.SOLN. 100 MEQ IV BOLUS ×4 (07:50→15:05)
[2020-02-19] MEDS: Aspirin 81 MG TAB.CHEW PO (07:57)
[2020-02-19] MEDS: Ondansetron 4 MG/2 ML Vial IV (07:58)
[2020-02-19] MEDS: DiphenhydrAMINE 25 MG Capsule PO (07:58)
[2020-02-19] MEDS: TICAGRELOR 90 MG TABLET PO ×2 (07:59→20:47)
[2020-02-19] MEDS: Enoxaparin 40 MG/0.4 ML Syringe SC (07:59)
--- NOTE | 2020-02-19 08:02 | PCM.PN.INT ---
Subjective: Patient's transfer from the intensive care unit was held overnight secondary to hypoxia. Patient did have to be placed on BiPAP rescue. Chest x-ray showed increased infiltrates and patient was given Lasix overnight with significant output. Patient feels subjectively improved this morning. Patient states her chest pain is slowly improving. This continues to be an issue with coughing, but she states she feels comfortable when breathing normally. General: Alert, Oriented x3, Cooperative, No apparent distress - Off BiPAP, no conversational dyspnea noted HEENT: Atraumatic, PERRLA, EOMI, Normocephalic, - - No scleral injection or icterus noted Oral: Moist Mucosa, No Gingival or Mucosal Lesions/ Ulcerations Neck: Supple, No Nodes, Trachea Midline, JVD, Right Lungs: Diminished, Rales - Right greater than left base, Wheezes - End exhalation Cardiovascular: Regular rate, Regular Rhythm, Normal S1, Normal S2, No murmurs, No rub noted, No Gallop Abdomen: Bowel Sounds Present, Soft, Non Tender, Non-Distended Extremities: No clubbing, No cyanosis, Edema Skin: No rashes, No breakdown Musculoskeletal: No Tenderness to Palpation of Joints or Extremities Lymphatic: No Cervical, Supraclavicular, or Inguinal Adenopathy Neurological: Cranial nerves II-XII grossly intact, Neuro grossly intact, Motor Exam 5/5 strength throughout Psych/Mental Status: Alert and oriented to time, place, person, mood and affect Vital Signs Temp Pulse Resp BP Pulse Ox 37.1 C 105 H 27 H 122/78 H 97 02/19/20 03:00 02/19/20 07:00 02/19/20 07:00 02/19/20 07:00 02/19/20 07:00 Oxygen Flow Rate (L/min) 13 Oxygen Delivery Method Nasal Cannula Weight: 65.2 kg Body Mass Index (BMI) 24.7 Finger Stick Blood Glucose 61 Intake and Output for Last 24 Hours 02/17/20 02/18/20 02/19/20 23:59 23:59 23:59 Intake Total 3354.38 / 3354.38 3871.67 / 3871.67 50 / 50 Output Total 850 / 850 1900 / 2625 1075 / 1075 Balance 2504.38 / 2504.38 1971.67 / 1246.67 -1025 / -1025 Labs (Last 48 Hours) 02/18/20 02/18/20 02/18/20 05:45 05:45 05:45 WBC 12.3 H RBC 2.69 L Hgb 8.4 L Hct 25.0 L MCV 92.9 D MCH 31.2 MCHC 33.6 D RDW Std Deviation 48.4 H RDW Coeff of Nehemiah 14.3 Plt Count 193 MPV 9.9 Immature Gran % (Auto) 1.300 H Neut % (Auto) 90.5 H Lymph % (Auto) 3.3 L [place] % (Auto) 4.6 Eos % (Auto) 0.1 Baso % (Auto) 0.2 Absolute Neuts (auto) 11.2 H Absolute Lymphs (auto) 0.41 L Nucleated RBC % 0 Sodium 141 Potassium 3.3 L Chloride 116 H Carbon Dioxide 19.0 L Anion Gap 6 BUN 12 Creatinine 0.65 Estim Creat Clear Calc 71.38 Est GFR (MDRD) Af Amer 117 Est GFR (MDRD) Non-Af 97 BUN/Creatinine Ratio 18.4 Glucose 134 H Calcium 7.6 L B-Natriuretic Peptide Vancomycin Trough 8.5 02/18/20 02/19/20 02/19/20 22:50 05:25 05:25 WBC 14.6 H RBC 3.00 L Hgb 9.1 L Hct 28.3 L MCV 94.3 MCH 30.3 MCHC 32.2 RDW Std Deviation 51.9 H RDW Coeff of Nehemiah 14.8 H Plt Count 243 MPV 9.9 Immature Gran % (Auto) 1.200 H Neut % (Auto) 90.4 H Lymph % (Auto) 4.7 L [place] % (Auto) 3.6 Eos % (Auto) 0.0 Baso % (Auto) 0.1 Absolute Neuts (auto) 13.2 H Absolute Lymphs (auto) 0.68 L Nucleated RBC % 0 Sodium 139 Potassium 3.3 L Chloride 108 H Carbon Dioxide 24.0 Anion Gap 7 BUN 17 Creatinine 0.66 Estim Creat Clear Calc 70.30 Est GFR (MDRD) Af Amer 115 Est GFR (MDRD) Non-Af 95 BUN/Creatinine Ratio 25.6 H Glucose 109 H Calcium 8.1 L B-Natriuretic Peptide 1472.3 H Vancomycin Trough Microbiology 02/16/20 16:41 Blood Culture (Wb) - Anticubital Left Blood Culture - Preliminary No growth in 48 hours. 02/16/20 16:40 Blood Culture (Wb) - Right Hand Blood Culture - Preliminary No growth in 48 hours. 02/16/20 17:20 Urine, Clean Catch Urine Culture - Preliminary Culture exhibits no growth. 02/17/20 03:55 Stool Enteric Bacteriology - Final 02/17/20 03:55 Stool C. difficile DNA Amplification - Final 02/17/20 02:25 Urine Catheter - Michaud Legionella Antigen - Final 02/17/20 02:25 Urine Catheter - Michaud Streptococcus pneumoniae Antigen (M - Final Clinical Impression(s) from Imaging Studies Chest X-Ray 02/18/20 21:00 IMPRESSION: Worsening bilateral infiltrates. Electronically Signed: Boo Esparza DO at 22:51 EST Tel [phone], Service support , Medical Necessity - Tobacco Use Smoking Status: Former smoker Assessment/Plan All Active Problems (Last Updated 07/01/17 @ 12:07 by Lisa Ferreira) STEMI (ST elevation myocardial infarction) (Ruled-out) Cardiac arrest (Acute) Torsades de pointes (Acute) Ventricular tachycardia (Acute) NSTEMI (non-ST elevated myocardial infarction) (Acute) Cardiogenic shock (Acute) RECOMMENDATIONS: 1. Administer additional dose of Lasix with potassium repletion 2. Continue bronchodilators and steroids. Seroquel for anxiety. Avoid Ativan. 3. Okay to transition to baseline hydrocortisone 4. Wean FiO2 to maintain oxygen saturations at or above 90%. 5. Encourage incentive spirometer use and mobilize patient as tolerated. 6. Possible transfer from the intensive care unit later today 7. Aggressive incentive spirometer and pain control given costochondritis IMPRESSIONS: 1. Acute on chronic hypoxemic respiratory failure secondary to acute on chronic CHF The patient was just discharged from the hospital on February 14 after having been admitted with respiratory failure as a consequence of acute cardiac arrest, necessitating revascularization. The patient was also noted to have an aspiration pneumonia during that hospitalization, which was being treated with antimicrobials. She does have an apparent history of COPD of unknown severity along with a baseline 2 L/min oxygen requirement. Low clinical suspicion for infectious etiology. Likely ok to discontinue antibiotics. Patient with significant response to Lasix therapy. Give an additional dose today and wean oxygen as tolerated. If patient is doing well on minimal nasal cannula, possibly transfer from the intensive care unit later today. 2. History of COPD of unknown severity/history of tobacco dependency Continue scheduled bronchodilator therapy. Wean supplemental oxygen as tolerated. The patient would likely benefit from formal work-up in the pulmonary medicine clinic following discharge. 3. History of coronary artery disease status post CABG Continue current medical management per cardiology recommendations. 4. History of adrenal insufficiency The patient does have a history of adrenal insufficiency and is on baseline hydrocortisone therapy in her home environment. Okay to transition to baseline hydrocortisone therapy from my perspective. 5. Hypertension/hyperlipidemia/anxiety/costochondritis from CPR Complicates care, management, recovery and prognosis. Continue home medications as indicated. Inpatient E&M: 25214 [facility] L[facility]
[2020-02-19] MEDS: Hydrocortisone 10 MG Tablet 20 MG PO (10:53)
--- NOTE | 2020-02-19 11:25 | CASEMGMT ---
Addendum entered by Alvin Hightower 02/19/20 13:18: Attempted to speak with patient re: SNF on discharge for medical and physical therapies. Pt is sleeping, so will f/u when she is awake. Call to TCU to check bed availability. Pt's name added to list (explained we have not spoken with pt yet) and bed would be available on . Jose Roberto RIOS Original Note: RN CM Readmission Note Index admission: 02/10/20-02/15/20 Diagnosis: STEMI, cardiac arrest DC Disposition: Home Current Admission Diagnosis: HCAP, resp failure Pt returned to ER with cough, fever and shortness of breath. COVID-10 testing was negative. CXR and chest CT showed pneumonia. Febrile- 102.2, HR 129, RR 35. Placed on NRB and Bipap. To ICU for continued treatment. IV antibiotics, IVF, continue Brilinta, Seroquel, Duoneb. DC PLAN: return home. Pt has follow up appointment with cardiology. Pt may benefit from Home Care on dc. Pt not able to discuss at this time. Jose Roberto TOVARM
[2020-02-19] MEDS: Acetaminophen 325 MG Tablet 650 MG PO ×2 (15:00→21:03)
--- NOTE | 2020-02-19 15:55 | CASEMGMT ---
RN SHAY Note: Intro role of CM to patient in ICU room. Patient is awake, alert and able to participate. Explained recommendation for further care on dc with SNF. Patient is agreeable and states she feels this would be good. Discussed options for SNF in area, pt prefers TCU. KENDALL DAY let her know her name can be placed on TCU list and transition on discharge when she is medically ready. Patient is agreeable to DC plan. Call to TCU referral line to update that patient is agreeable for TCU on dc. Jose Roberto JERRYN RN ACM
[2020-02-19] MEDS: Atorvastatin Calcium 10 MG Tablet PO (20:44)
[2020-02-19] MEDS: Hydrocortisone 10 MG Tablet PO (20:47)
[2020-02-19] MEDS: MELATONIN 3 MG TABLET PO (21:58)
[2020-02-20] VITALS (32 sets, daily range): BP systolic 72–140; BP diastolic 22–121; PULSE 101–146; RESP 16–43; TEMP 37.2–39.5; O2SAT 90–98
[2020-02-20] MEDS: Ipratropium/Albuterol Sulfate 3 ML AMPUL.NEB INHALATION ×2 (03:46→07:21)
[2020-02-20] MEDS: oxyCODONE 5 MG Tablet PO (03:56)
[2020-02-20 04:36] LABS: Absolute Lymphocyte Count 0.84 X10^3/uL (0.83-4.51); Absolute Neutrophil Count 12.4 X10^3/uL (2.0-7.7); Basophil# 0.06 X10^3/uL; Basophil% 0.4 % (0-1); Eosinophil# 0.05 X10^3/uL; Eosinophils% 0.4 % (0-5); Hematocrit 31.9 % (37-47); Hemoglobin 10.4 g/dL (12.0-15.0); Lymphocyte # 0.84 X10^3/ul (4.0); Lymphocyte % 6.1 % (19-41); Mean Corp Hgb Conc 32.6 g/dL (32-36); Mean Corpuscular Hgb 30.4 pg (27.0-32.0); Mean Corpuscular Volume 93.3 fL (81-99); Mean Platelet Vol. 10.3 fl (6.2-12.0); Monocyte# 0.34 X10^3/uL; Monocyte% 2.5 % (0-10); NRBC Flagged by Analyzer 0.1 % (0-5); Neutrophil # 12.37 X10^3/uL (2.7-7.7); Neutrophil % 89.9 % (47-70); Platelet Count 261 K/mm3 (150-450); RBC Distribution Width CV 14.7 % (11.6-14.6); RBC Distribution Width SD 50.7 fl (35.1-43.9); Red Blood Count 3.42 M/mm3 (4.2-5.4); White Blood Count 13.8 K/mm3 (4.4-11.0)
[2020-02-20 04:49] LABS: Anion Gap 7 (5-15); BUN 14 mg/dL (7-18); BUN/Creat Ratio 20.1 RATIO (10-20); Calcium,Total 8.5 mg/dL (8.5-10.1); Chloride 103 mmol/L (98-107); EST Glomerular Filtration Rate 90 mL/min (>60); Est Glom Filt Rate - Afr Amer 109 mL/min (>60); Estimated Creatinine Clearance 66.28 ml/min; Glucose 87 mg/dL (74-106); Potassium 3.4 mmol/L (3.5-5.1); Sodium Level 137 mmol/L (136-145)
--- NOTE | 2020-02-20 07:40 | PN_ITS ---
Subjective: Patient continues to have significant oxygen demands to maintain saturations. Overnight, patient did spike a fever to 39.9 ?C with associated tachycardia. No cultures or antibiotics were given. Patient was transitioned to baseline hydrocortisone yesterday. General: Alert, Oriented x3, Cooperative, - - Moderate respiratory distress HEENT: Atraumatic, PERRLA, EOMI, Normocephalic, - - No scleral icterus or injection noted Oral: Moist Mucosa, No Gingival or Mucosal Lesions/ Ulcerations Neck: Supple, No Nodes, Trachea Midline, JVD, Right Lungs: No rhonchi, No wheeze, Diminished, Rales Cardiovascular: Normal S1, Normal S2, No murmurs, No rub noted, No Gallop, Tachycardic Abdomen: Bowel Sounds Present, Soft, Non Tender, Non-Distended Extremities: No clubbing, No cyanosis, Edema - Her extremity Skin: - - No change compared to previous Musculoskeletal: No Tenderness to Palpation of Joints or Extremities Lymphatic: No Cervical, Supraclavicular, or Inguinal Adenopathy Neurological: Cranial nerves II-XII grossly intact, Neuro grossly intact, Motor Exam 5/5 strength throughout Psych/Mental Status: Anxious Vital Signs Temp Pulse Resp BP Pulse Ox 37.2 C 110 H 24 H 107/61 97 02/20/20 05:00 02/20/20 07:21 02/20/20 07:21 02/20/20 06:00 02/20/20 07:22 Oxygen Flow Rate (L/min) 12 Oxygen Delivery Method Nasal Cannula Weight: 67.5 kg Body Mass Index (BMI) 24.7 Finger Stick Blood Glucose 61 Intake and Output for Last 24 Hours 02/18/20 02/19/20 02/20/20 23:59 23:59 23:59 Intake Total 3871.67 / 3871.67 1580 / 1580 600 / 600 Output Total 1900 / 2625 3900 / 3970 195 / 195 Balance 1971.67 / 1246.67 -2320 / -2390 405 / 405 Labs (Last 48 Hours) 02/18/20 02/19/20 02/19/20 22:50 05:25 05:25 WBC 14.6 H RBC 3.00 L Hgb 9.1 L Hct 28.3 L MCV 94.3 MCH 30.3 MCHC 32.2 RDW Std Deviation 51.9 H RDW Coeff of Nehemiah 14.8 H Plt Count 243 MPV 9.9 Immature Gran % (Auto) 1.200 H Neut % (Auto) 90.4 H Lymph % (Auto) 4.7 L [place] % (Auto) 3.6 Eos % (Auto) 0.0 Baso % (Auto) 0.1 Absolute Neuts (auto) 13.2 H Absolute Lymphs (auto) 0.68 L Nucleated RBC % 0 Sodium 139 Potassium 3.3 L Chloride 108 H Carbon Dioxide 24.0 Anion Gap 7 BUN 17 Creatinine 0.66 Estim Creat Clear Calc 70.30 Est GFR (MDRD) Af Amer 115 Est GFR (MDRD) Non-Af 95 BUN/Creatinine Ratio 25.6 H Glucose 109 H Calcium 8.1 L B-Natriuretic Peptide 1472.3 H 02/20/20 02/20/20 04:25 04:25 WBC 13.8 H RBC 3.42 L Hgb 10.4 L Hct 31.9 L MCV 93.3 MCH 30.4 MCHC 32.6 RDW Std Deviation 50.7 H RDW Coeff of Nehemiah 14.7 H Plt Count 261 MPV 10.3 Immature Gran % (Auto) 0.700 Neut % (Auto) 89.9 H Lymph % (Auto) 6.1 L [place] % (Auto) 2.5 Eos % (Auto) 0.4 Baso % (Auto) 0.4 Absolute Neuts (auto) 12.4 H Absolute Lymphs (auto) 0.84 Nucleated RBC % 0.1 Sodium 137 Potassium 3.4 L Chloride 103 Carbon Dioxide 27.0 Anion Gap 7 BUN 14 Creatinine 0.70 Estim Creat Clear Calc 66.28 Est GFR (MDRD) Af Amer 109 Est GFR (MDRD) Non-Af 90 BUN/Creatinine Ratio 20.1 H Glucose 87 Calcium 8.5 B-Natriuretic Peptide Microbiology 02/19/20 06:10 Sputum, Expectorated/Coughed Gram Stain - Final 02/16/20 17:20 Urine, Clean Catch Urine Culture - Final Culture exhibits no growth. 02/16/20 16:41 Blood Culture (Wb) - Anticubital Left Blood Culture - Preliminary No growth in 48 hours. 02/16/20 16:40 Blood Culture (Wb) - Right Hand Blood Culture - Preliminary No growth in 48 hours. Medical Necessity - Tobacco Use Smoking Status: Former smoker Assessment/Plan All Active Problems (Last Updated 07/01/17 @ 12:07 by Lsia Ferreira) STEMI (ST elevation myocardial infarction) (Ruled-out) Cardiac arrest (Acute) Torsades de pointes (Acute) Ventricular tachycardia (Acute) NSTEMI (non-ST elevated myocardial infarction) (Acute) Cardiogenic shock (Acute) RECOMMENDATIONS: 1. Administer additional dose of Lasix with potassium repletion 2. Continue bronchodilators and steroids. Seroquel for anxiety. Avoid Ativan. 3. Continue baseline hydrocortisone unless patient becomes hypotensive 4. Wean FiO2 to maintain oxygen saturations at or above 90%. 5. Encourage incentive spirometer use and mobilize patient as tolerated. 6. Obtain mixon cultures and reinitiate empiric antibiotics. 7. Aggressive incentive spirometer and pain control given costochondritis IMPRESSIONS: 1. Acute on chronic hypoxemic respiratory failure secondary to acute on chronic CHF The patient was just discharged from the hospital on February 14 after having been admitted with respiratory failure as a consequence of acute cardiac arrest, necessitating revascularization. The patient was also noted to have an aspiration pneumonia during that hospitalization, which was being treated with antimicrobials. She does have an apparent history of COPD of unknown severity along with a baseline 2 L/min oxygen requirement. Low clinical suspicion for infectious etiology initially and was monitoring off of antibiotics. However, patient spiked a temperature overnight. Will obtain pancultures and initiate empiric antibiotics. Drug fever from Seroquel and adrenal insufficiency would also be considerations. 2. History of COPD of unknown severity/history of tobacco dependency Continue scheduled bronchodilator therapy. Wean supplemental oxygen as tolerated. The patient would likely benefit from formal work-up in the pulmonary medicine clinic following discharge. 3. History of coronary artery disease status post CABG Continue current medical management per cardiology recommendations. 4. History of adrenal insufficiency The patient does have a history of adrenal insufficiency and is on baseline hydrocortisone therapy in her home environment. On baseline hydrocortisone. No hypotension to suggest need to transition to IV stress dose steroids 5. Hypertension/hyperlipidemia/anxiety/costochondritis from CPR Complicates care, management, recovery and prognosis. Continue home medications as indicated. Addendum 1341: Called to patient's bedside secondary to agitation by nursing. Patient was noted to be tachycardic with decreasing blood pressure and fever. On my arrival, patient was wrapped in a blanket and complaining that SCDs were not being applied. Patient also stated that we were trying to drug her to be an easy patient. Patient had refused blood cultures earlier in the day and stated that she felt that the monitors are not correct and she is doing fine. After 30-minute discussion, patient was willing to have blood cultures obtained. Patient will have SCDs applied. Patient will also have Seroquel transition to 25 mg with sleep. Patient was upset that Ativan cannot be restarted, but had extensive conversation about the risk of delirium associated with the use of benzodiazepines. Patient states that her chest pain is well controlled at this time. Patient did not have any recollection of my morning assessment. TIME: 32 minutes critical care time spent addressing patient's acute on chronic respiratory failure, fever, review of all data and collaboration with care team (6 AM to 7 AM) 9xxxx: [id number] Critical care first hour
--- NOTE | 2020-02-20 07:43 | PN_ITS ---
Subjective: Patient seen and examined. She is now on 12 L of oxygen. Still remains tachypneic. Review of systems otherwise negative. She does feel she is getting better. Potassium is 3.4. Patient also mildly tachycardic this morning. She is in cumulative positive balance by 6.42 L. Vitals/I&O's: Vital Signs Temp Pulse Resp BP Pulse Ox 99 F 110 H 24 H 107/61 97 02/20/20 05:00 02/20/20 07:21 02/20/20 07:21 02/20/20 06:00 02/20/20 07:22 Oxygen Flow Rate (L/min) 12 Oxygen Delivery Method Nasal Cannula Weight: 148 lb 12.992 oz Body Mass Index (BMI) 24.7 Finger Stick Blood Glucose 61 Intake and Output for Last 24 Hours 02/18/20 02/19/20 02/20/20 23:59 23:59 23:59 Intake Total 3871.67 / 3871.67 1580 / 1580 600 / 600 Output Total 1900 / 2625 3900 / 3970 195 / 195 Balance 1971.67 / 1246.67 -2320 / -2390 405 / 405 General: Alert, Oriented x3, Cooperative, No apparent distress HEENT: Atraumatic, PERRLA, EOMI, Normocephalic Oral: Dry Mucosa Neck: Supple, No JVD, Negative Carotid Bruits Lungs: - - mild wheezing and crackles in all lung gao; on 12L of oxygen by nasal canula Cardiovascular: Regular Rhythm, Normal S1, Normal S2, No murmurs, Tachycardic Abdomen: Bowel Sounds Present, Soft, Non Tender Extremities: No clubbing, No cyanosis, No edema, Capillary Refill Less than 3 Seconds Skin: No rashes, No breakdown Musculoskeletal: No Tenderness to Palpation of Joints or Extremities Lymphatic: No Cervical, Supraclavicular, or Inguinal Adenopathy Neurological: Cranial nerves II-XII grossly intact, Neuro grossly intact, Motor Exam 5/5 strength throughout Psych/Mental Status: Normal Affect, Appropriate, Alert and oriented to time, place, person, mood and affect Microbiology Past 72 Hours 02/19/20 06:10 Sputum, Expectorated/Coughed Gram Stain - Final 02/16/20 17:20 Urine, Clean Catch Urine Culture - Final Culture exhibits no growth. 02/16/20 16:41 Blood Culture (Wb) - Anticubital Left Blood Culture - Preliminary No growth in 48 hours. 02/16/20 16:40 Blood Culture (Wb) - Right Hand Blood Culture - Preliminary No growth in 48 hours. 02/17/20 03:55 Stool Enteric Bacteriology - Final 02/17/20 03:55 Stool C. difficile DNA Amplification - Final 02/17/20 02:25 Urine Catheter - Michaud Legionella Antigen - Final 02/17/20 02:25 Urine Catheter - Michaud Streptococcus pneumoniae Antigen (M - Final Laboratory Results 02/20/20 04:25: WBC 13.8 H, RBC 3.42 L, Hgb 10.4 L, Hct 31.9 L, MCV 93.3, MCH 30.4, MCHC 32.6, RDW Std Deviation 50.7 H, RDW Coeff of Nehemiah 14.7 H, Plt Count 261, MPV 10.3, Immature Gran % (Auto) 0.700, Neut % (Auto) 89.9 H, Lymph % (Auto) 6.1 L, [place] % (Auto) 2.5, Eos % (Auto) 0.4, Baso % (Auto) 0.4, Absolute Neuts (auto) 12.4 H, Absolute Lymphs (auto) 0.84, Nucleated RBC % 0.1 02/20/20 04:25: Sodium 137, Potassium 3.4 L, Chloride 103, Carbon Dioxide 27.0, Anion Gap 7, BUN 14, Creatinine 0.70, Estim Creat Clear Calc 66.28, Est GFR (MDRD) Af Amer 109, Est GFR (MDRD) Non-Af 90, BUN/Creatinine Ratio 20.1 H, Glucose 87, Calcium 8.5 Current Medications Acetaminophen (Acetaminophen 325 Mg Tablet) 650 mg PO Q6H PRN PRN PRN Reason: Pain Score 1-10/Temp > 100.7 F Last Admin: 02/19/20 21:03 Dose: 650 mg Documented by: Al Hydroxide/Mg Hydroxide (Mag Hydrox/Al Hydrox/Simeth 30 Ml Udc) 30 ml PO Q6H PRN PRN PRN Reason: Gastric Burning Albuterol Sulfate (Albuterol 2.5 Mg/3 Ml Vial.Neb.) 2.5 mg INHALATION Q2H PRN PRN PRN Reason: SOB/Wheezing Albuterol/Ipratropium (Ipratropium/Albuterol Sulfate 3 Ml Ampul.Neb) 3 ml INHALATION Q4H.RT [facility] Last Admin: 02/20/20 07:21 Dose: 3 ml Documented by: Aspirin (Aspirin 81 Mg Tab.Chew) 81 mg PO DAILY [facility] Last Admin: 02/19/20 07:57 Dose: 81 mg Documented by: Atorvastatin Calcium (Atorvastatin Calcium 10 Mg Tablet) 10 mg PO QHS [facility] Last Admin: 02/19/20 20:44 Dose: 10 mg Documented by: Benzonatate (Benzonatate 100 Mg Capsule) 100 mg PO TID PRN PRN PRN Reason: COUGH Last Admin: 02/19/20 20:42 Dose: 100 mg Documented by: Diphenhydramine HCl (Diphenhydramine 25 Mg Capsule) 25 mg PO BID PRN PRN PRN Reason: ITCHING Last Admin: 02/19/20 07:58 Dose: 25 mg Documented by: Docusate Sodium (Docusate Sodium 100 Mg Capsule) 100 mg PO BID PRN PRN PRN Reason: Constipation Enoxaparin Sodium (Enoxaparin 40 Mg/0.4 Ml Syringe) 40 mg SC DAILY [facility] Last Admin: 02/19/20 07:59 Dose: 40 mg Documented by: Hydrocortisone (Hydrocortisone 10 Mg Tablet) 20 mg PO DAILY [facility] Last Admin: 02/19/20 10:53 Dose: 20 mg Documented by: Hydrocortisone (Hydrocortisone 10 Mg Tablet) 10 mg PO QHS [facility] Last Admin: 02/19/20 20:47 Dose: 10 mg Documented by: Meropenem 1 gm/ Sodium (Chloride) 120 mls @ 33 mls/hr IV Q8 [facility] Vancomycin IV Pharmacy to Dose (1 ea/ Sodium Chloride) 500 mls @ 250 mls/hr IV X1 PRN; Protocol PRN Reason: Rx to Dose Melatonin (Melatonin 3 Mg Tablet) 3 mg PO QHS PRN PRN PRN Reason: INSOMNIA Last Admin: 02/19/20 21:58 Dose: 3 mg Documented by: Ondansetron HCl (Ondansetron 4 Mg/2 Ml Vial) 4 mg IV Q8H PRN PRN PRN Reason: NAUSEA/VOMITING Last Admin: 02/19/20 07:58 Dose: 4 mg Documented by: Oxycodone HCl (Oxycodone 5 Mg Tablet) 5 mg PO Q4H PRN PRN PRN Reason: Pain Score 6-10 Last Admin: 02/20/20 03:56 Dose: 5 mg Documented by: Quetiapine Fumarate (Quetiapine 25 Mg Tablet) 25 mg PO BID [facility] Last Admin: 02/19/20 20:44 Dose: 25 mg Documented by: Sodium Chloride (0.9% Saline Lock 10 Ml Syringe) 10 - 40 ml IV UD PRN PRN Reason: SALINE FLUSH Last Admin: 02/18/20 21:58 Dose: 20 ml Documented by: Ticagrelor (Ticagrelor 90 Mg Tablet) 90 mg PO BID [facility] Last Admin: 02/19/20 20:47 Dose: 90 mg Documented by: STROKE Vital Signs/Narrative: Vital Signs Temp Pulse Resp BP Pulse Ox 02/20/20 07:22 97 02/20/20 07:21 110 H 24 H 02/20/20 06:00 124 H 22 H 107/61 97 02/20/20 05:00 99 F 113 H 19 H 106/59 L 95 02/20/20 04:00 121 H 16 140/121 H 98 02/20/20 03:47 110 H 26 H Medical Necessity - Tobacco Use Smoking Status: Former smoker Assessment/Plan All Active Problems (Last Updated 07/01/17 @ 12:07 by Lisa Ferreira) STEMI (ST elevation myocardial infarction) (Ruled-out) Cardiac arrest (Acute) Torsades de pointes (Acute) Ventricular tachycardia (Acute) NSTEMI (non-ST elevated myocardial infarction) (Acute) Cardiogenic shock (Acute) # Acute hypoxic respiratory failure * Due to health associated pneumonia. * Has right upper lobe pneumonia due to gram-negative organisms with previous sputum cultures growing E. coli. * Currently on Zosyn and vancomycin * Now on 12L of oxygen. Titrate oxygen to maintain saturation above 90%. * Blood cultures and sputum cultures negative * On breathing treatment with bronchodilators. * #Septic shock due to health associated pneumonia: * As above. Also on IV Levophed for hemodynamic support. * Critical care on board. * On IV hydrocortisone 50 mg every 8hrs * #Diarrhea: Improving. C. difficile screen was negative. #Acute on chronic heart failure with reduced ejection fraction: * EF is 40%. BNP is >1400 * ANGIE inhibitor and beta-nakul on hold on account of septic shock. * On IV lasix #Recent non-STEMI * Was recently admitted for cardiopulmonary arrest due to non-STEMI and had left heart cath with PCI and stent placement to SVG to . * Troponin was elevated on admission but this is likely residual from her recent cardiopulmonary arrest due to nonstemi. Cath with stent placement just about a week ago. * On aspirin, statin and Brilinta. ANGIE inhibitor and beta-nakul on hold on account of hypotension and septic shock. * #Hypokalemia: K is 3.4 today. Will replace per protocol and monitor # Anemia: * Hb is up to 10.4 today, from 8.4 yesterday * will continue monitoring * #History of adrenal insufficiency: Currently on stress dose of hydrocortisone #COPD: On breathing treatments with bronchodilators. Currently on oxygen as well due to respiratory failure from pneumonia DVT prophylaxis: lovenox Inpatient E&M: 92[address] [facility] L3
[2020-02-20] MEDS: Aspirin 81 MG TAB.CHEW PO (08:33)
[2020-02-20] MEDS: Enoxaparin 40 MG/0.4 ML Syringe SC (08:33)
[2020-02-20] MEDS: Benzonatate 100 MG Capsule PO (08:33)
[2020-02-20] MEDS: DiphenhydrAMINE 25 MG Capsule PO (08:33)
[2020-02-20] MEDS: QUEtiapine 25 MG Tablet PO ×2 (08:33→21:32)
[2020-02-20] MEDS: Acetaminophen 325 MG Tablet 650 MG PO (08:34)
[2020-02-20] MEDS: Hydrocortisone 10 MG Tablet 20 MG PO (08:36)
[2020-02-20] MEDS: TICAGRELOR 90 MG TABLET PO ×2 (08:36→21:32)
[2020-02-20] MEDS: Furosemide 20 MG/2 ML VIAL IV (09:05)
[2020-02-20] MEDS: Vancomycin IV 1,000 MG/200 ML BAG 200 MG IV ×2 (10:16→23:31)
[2020-02-20] MEDS: Metoprolol(XL)Succ 25 MG Tablet PO (10:16)
--- NOTE | 2020-02-20 10:51 | PCM.RX.CS ---
Consult Pharmacy has been consulted to manage selected antiobiotic: Vancomycin Type of Consult: New start Suspected Infection: Pneumonia Prior Doses of Antibiotics Received/Current Regimen: pt had previously been on vancomycin (most recent dose of 1000mg IV q12h) which was discontinued a couple days ago. Labs: Sodium 137 mmol/L (136-145) 02/20/20 04:25 Potassium 3.4 mmol/L (3.5-5.1) L 02/20/20 04:25 Chloride 103 mmol/L (98-107) 02/20/20 04:25 Carbon Dioxide 27.0 mmol/L (21.0-32.0) 02/20/20 04:25 Anion Gap 7 (5-15) 02/20/20 04:25 BUN 14 mg/dL (7-18) 02/20/20 04:25 Creatinine 0.70 mg/dL (0.55-1.02) 02/20/20 04:25 Est GFR (MDRD) Af Amer 109 mL/min (>60) 02/20/20 04:25 Est GFR (MDRD) Non-Af 90 mL/min (>60) 02/20/20 04:25 BUN/Creatinine Ratio 20.1 RATIO (10-20) H 02/20/20 04:25 Glucose 87 mg/dL (74-106) 02/20/20 04:25 Vancomycin Trough 8.5 ug/mL (5.0-15.0) 02/18/20 05:45 Microbiology: Microbiology 02/19/20 06:10 Sputum, Expectorated/Coughed Gram Stain - Final 02/16/20 17:20 Urine, Clean Catch Urine Culture - Final Culture exhibits no growth. 02/16/20 16:41 Blood Culture (Wb) - Anticubital Left Blood Culture - Preliminary No growth in 48 hours. 02/16/20 16:40 Blood Culture (Wb) - Right Hand Blood Culture - Preliminary No growth in 48 hours. 02/17/20 03:55 Stool Enteric Bacteriology - Final 02/17/20 03:55 Stool C. difficile DNA Amplification - Final 02/17/20 02:25 Urine Catheter - Michaud Legionella Antigen - Final 02/17/20 02:25 Urine Catheter - Michaud Streptococcus pneumoniae Antigen (M - Final 02/16/20 16:45 Mucosa - Nose SARS-CoV-2 Antigen (Rapid) - Final Weight used for dosin.5 kg Estimated Creatinine Clearance: 66 ml/min Goal Trough: 15-20 mcg/mL Pharmacy Plan for Drug Dosing: Will restart the patient's most recent dose of 1000mg IV q12h. Will check a trough level before the 4th dose tomorrow night. Pharmacy Service will continue to monitor and adjust dosing as required. Follow-Up Labs: Trough Vancomycin Labs to be done on [date and time ordered]: 02/21/20 21:30
[2020-02-20] MEDS: Metoprolol Tartrate 5 MG/5 ML Vial 2.5 MG IV (20:05)
[2020-02-20] MEDS: Furosemide 40 MG/4 ML Vial IV (20:10)
[2020-02-20] MEDS: Hydrocortisone 10 MG Tablet PO (21:32)
[2020-02-20] MEDS: Atorvastatin Calcium 10 MG Tablet PO (21:32)
[2020-02-20 23:00] LABS: Allen Test Positive; Base Excess 4 mmol/L (-2 to +2); Bicarbonate 27.7 mmol/L (22-26); Blood Gas Specimen Type ART; FI02 75; O2 Delivery Device BiPAP; PEEP 10; PO2 67 mmHG (75-100); PS 17; RR 12; SITE L Radial; SO2 94 % (95-99); Total Carbon Dioxide 29 mmol/L; Vt 450; pCO2 41.2 mmHg (35-45); pH 7.44 (7.35-7.45)
[2020-02-21] VITALS (38 sets, daily range): BP systolic 76–113; BP diastolic 46–72; PULSE 85–134; RESP 12–41; TEMP 36.3–39.2; O2SAT 90–99
[2020-02-21] MEDS: Ipratropium 0.5 MG/2.5 ML SOLUTION INHALATION ×6 (00:35→23:13)
[2020-02-21 05:50] LABS: Hematocrit 27.7 % (37-47); Mean Corp Hgb Conc 32.5 g/dL (32-36); Mean Corpuscular Hgb 30.3 pg (27.0-32.0); Mean Corpuscular Volume 93.3 fL (81-99); Mean Platelet Vol. 10.5 fl (6.2-12.0); POSITIVE COUNT YES; POSITIVE MORPHOLOGY YES; Platelet Count 267 K/mm3 (150-450); RBC Distribution Width CV 14.7 % (11.6-14.6); RBC Distribution Width SD 50.4 fl (35.1-43.9); Red Blood Count 2.97 M/mm3 (4.2-5.4); White Blood Count 9.7 K/mm3 (4.4-11.0)
[2020-02-21 05:53] LABS: Differential Indicated MANUAL DIFF
[2020-02-21 06:06] LABS: Anion Gap 7 (5-15); BUN 17 mg/dL (7-18); BUN/Creat Ratio 26.2 RATIO (10-20); Calcium,Total 7.7 mg/dL (8.5-10.1); Chloride 101 mmol/L (98-107); Creatinine, Serum 0.65 mg/dL (0.55-1.02); EST Glomerular Filtration Rate 97 mL/min (>60); Est Glom Filt Rate - Afr Amer 118 mL/min (>60); Estimated Creatinine Clearance 71.38 ml/min; Glucose 85 mg/dL (74-106); Potassium 3.8 mmol/L (3.5-5.1); Sodium Level 134 mmol/L (136-145)
--- NOTE | 2020-02-21 06:20 | EKG12_ITS ---
Test Reason : Blood Pressure : / mmHG Vent. Rate : 130 BPM Atrial Rate : 130 BPM P-R Int : 130 ms QRS Dur : 088 ms QT Int : 328 ms P-R-T Axes : 066 076 049 degrees QTc Int : 482 ms Sinus tachycardia with Premature atrial complexes Nonspecific T wave abnormality Abnormal ECG Confirmed by BRAXTON BUSTILLOS, JOE ([id number]), newspaper editor KENROY HICKS ([id number]) on 02/25/2020 9:55:03 AM Referred By: Nelida Vargas Confirmed By:JOE LIMON MD
[2020-02-21 06:39] LABS: Total Cells Counted 100 (MANUAL DIFF)
[2020-02-21 06:43] LABS: Eosinophil 2 % (0-5); Lymphocyte 12 % (19-41); Metamyelocyte 1 % (0-1); Monocyte 5 % (0-10); Neutrophil-Band 5 % (0-5); Neutrophil-Segmented 75 % (47-70)
[2020-02-21 06:44] LABS: Platelet Estimate ADEQUATE (ADEQ)
[2020-02-21 06:45] LABS: Absolute Neutrophil Count 7.8 X10^3/uL (2.0-7.7); Neutrophil # 7.76 X10^3/uL (2.7-7.7)
[2020-02-21 06:46] LABS: Absolute Lymphocyte Count 1.16 X10^3/uL (0.83-4.51); Hypochromasia RARE; Lymphocyte # 1.16 X10^3/ul (4.0)
[2020-02-21] MEDS: Metoprolol(XL)Succ 25 MG Tablet PO (09:18)
[2020-02-21] MEDS: TICAGRELOR 90 MG TABLET PO ×2 (09:18→21:59)
[2020-02-21] MEDS: Enoxaparin 40 MG/0.4 ML Syringe SC (09:21)
[2020-02-21] MEDS: Hydrocortisone 10 MG Tablet 20 MG PO (09:22)
[2020-02-21] MEDS: Vancomycin IV 1,000 MG/200 ML BAG 200 MG IV ×2 (09:35→23:54)
--- NOTE | 2020-02-21 10:27 | PN_ITS ---
Subjective: Patient seen and examined. Patient states she does not feel like she is getting better. She still remains short of breath. She is still tachypneic and tachycardic with respiratory rate going up to the 40s overnight and heart rate up to the 140s. WBC is down to 9.7. She still remained febrile with a temperature of 102.5 Fahrenheit today. Sputum culture growing Klebsiella pneumonia. Repeat blood cultures pending. Vitals/I&O's: Vital Signs Temp Pulse Resp BP Pulse Ox 102.5 F H 121 H 24 H 107/55 L 90 02/21/20 06:00 02/21/20 09:18 02/21/20 07:00 02/21/20 09:18 02/21/20 07:00 Oxygen Flow Rate (L/min) 12 Oxygen Delivery Method Bi-pap Weight: 144 lb 6.444 oz Body Mass Index (BMI) 24.7 Finger Stick Blood Glucose 61 Intake and Output for Last 24 Hours 02/19/20 02/20/20 02/21/20 23:59 23:59 23:59 Intake Total 1580 / 1580 2240 / 2240 440 / 440 Output Total 3900 / 3970 3295 / 3295 275 / 275 Balance -2320 / -2390 -1055 / -1055 165 / 165 General: Alert, Oriented x3, Cooperative, No apparent distress HEENT: Atraumatic, PERRLA, EOMI, Normocephalic Oral: Dry Mucosa Neck: Supple, No JVD, Negative Carotid Bruits Lungs: - - mild wheezing and crackles in all lung gao; on BIPAP, tachypneic Cardiovascular: Regular Rhythm, Normal S1, Normal S2, No murmurs, Tachycardic Abdomen: Bowel Sounds Present, Soft, Non Tender Extremities: No clubbing, No cyanosis, No edema, Capillary Refill Less than 3 Seconds Skin: No rashes, No breakdown Musculoskeletal: No Tenderness to Palpation of Joints or Extremities Lymphatic: No Cervical, Supraclavicular, or Inguinal Adenopathy Neurological: Cranial nerves II-XII grossly intact, Neuro grossly intact, Motor Exam 5/5 strength throughout Psych/Mental Status: Normal Affect, Appropriate, Alert and oriented to time, place, person, mood and affect Microbiology Past 72 Hours 02/19/20 06:10 Sputum, Expectorated/Coughed Gram Stain - Final 02/19/20 06:10 Sputum, Expectorated/Coughed Respiratory Culture - Final Klebsiella pneumoniae sp pneum 02/16/20 16:41 Blood Culture (Wb) - Anticubital Left Blood Culture - Preliminary No growth in 48 hours. 02/16/20 16:40 Blood Culture (Wb) - Right Hand Blood Culture - Preliminary No growth in 48 hours. 02/16/20 17:20 Urine, Clean Catch Urine Culture - Final Culture exhibits no growth. Laboratory Results 02/20/20 22:52: Specimen Type ART, Sample Site L Radial, pH 7.44, Bicarbonate Actual 27.7 H, Total CO2 29, Base Excess 4 H, O2 Saturation 94 L, O2 % 75, ABG pCO2 41.2, ABG pO2 67 L, Zhang Test Positive, Respiration Rate 12, O2 Delivery Device BiPAP, Tidal Volume 450, POC PEEP 10, POC Pressure Suppt 17 02/21/20 05:40: Sodium 134 L, Potassium 3.8, Chloride 101, Carbon Dioxide 26.0, Anion Gap 7, BUN 17, Creatinine 0.65, Estim Creat Clear Calc 71.38, Est GFR (MDRD) Af Amer 118, Est GFR (MDRD) Non-Af 97, BUN/Creatinine Ratio 26.2 H, Glucose 85, Calcium 7.7 L 02/21/20 05:40: WBC 9.7, RBC 2.97 L, Hgb 9.0 L, Hct 27.7 L, MCV 93.3, MCH 30.3, MCHC 32.5, RDW Std Deviation 50.4 H, RDW Coeff of Nehemiah 14.7 H, Plt Count 267, MPV 10.5, Neut % (Auto) Not Reportable, Absolute Neuts (auto) 7.8 H, Absolute Lymphs (auto) 1.16, Total Counted 100, Neutrophils % (Manual) 75 H, Band Neutrophils % 5, Lymphocytes % (Manual) 12 L, Monocytes % (Manual) 5, Eosinophils % (Manual) 2, Metamyelocytes % 1, Diff Path Review May foll, Platelet Estimate ADEQUATE, Hypochromasia RARE Current Medications Acetaminophen (Acetaminophen 325 Mg Tablet) 650 mg PO Q6H PRN PRN PRN Reason: Pain Score 1-10/Temp > 100.7 F Last Admin: 02/20/20 08:34 Dose: 650 mg Documented by: Al Hydroxide/Mg Hydroxide (Mag Hydrox/Al Hydrox/Simeth 30 Ml Udc) 30 ml PO Q6H PRN PRN PRN Reason: Gastric Burning Aspirin (Aspirin 81 Mg Tab.Chew) 81 mg PO DAILY [facility] Last Admin: 02/20/20 08:33 Dose: 81 mg Documented by: Atorvastatin Calcium (Atorvastatin Calcium 10 Mg Tablet) 10 mg PO QHS [facility] Last Admin: 02/20/20 21:32 Dose: 10 mg Documented by: Benzonatate (Benzonatate 100 Mg Capsule) 100 mg PO TID PRN PRN PRN Reason: COUGH Last Admin: 02/20/20 08:33 Dose: 100 mg Documented by: Diphenhydramine HCl (Diphenhydramine 25 Mg Capsule) 25 mg PO BID PRN PRN PRN Reason: ITCHING Last Admin: 02/20/20 08:33 Dose: 25 mg Documented by: Docusate Sodium (Docusate Sodium 100 Mg Capsule) 100 mg PO BID PRN PRN PRN Reason: Constipation Enoxaparin Sodium (Enoxaparin 40 Mg/0.4 Ml Syringe) 40 mg SC DAILY [facility] Last Admin: 02/21/20 09:21 Dose: 40 mg Documented by: Hydrocortisone (Hydrocortisone 10 Mg Tablet) 20 mg PO DAILY [facility] Last Admin: 02/21/20 09:22 Dose: 20 mg Documented by: Hydrocortisone (Hydrocortisone 10 Mg Tablet) 10 mg PO QHS [facility] Last Admin: 02/20/20 21:32 Dose: 10 mg Documented by: Meropenem 1 gm/ Sodium (Chloride) 120 mls @ 33 mls/hr IV Q8 [facility] Last Infusion: 02/21/20 10:01 Dose: Infused Documented by: Vancomycin IV Pharmacy to Dose (1 ea/ Sodium Chloride) 500 mls @ 250 mls/hr IV X1 PRN; Protocol PRN Reason: Rx to Dose Vancomycin HCl (Vancomycin) 1,000 mg in 200 mls @ 200 mls/hr IV Q12H [facility] Last Admin: 02/21/20 09:35 Dose: 200 mls/hr Documented by: Ipratropium Emmalena (Ipratropium 0.5 Mg/2.5 Ml Solution) 0.5 mg INHALATION Q4H.RT [facility] Last Admin: 02/21/20 06:55 Dose: 0.5 mg Documented by: Melatonin (Melatonin 3 Mg Tablet) 3 mg PO QHS PRN PRN PRN Reason: INSOMNIA Last Admin: 02/19/20 21:58 Dose: 3 mg Documented by: Metoprolol Succinate (Metoprolol(Xl)Succ 25 Mg Tablet) 25 mg PO DAILY [facility] Last Admin: 02/21/20 09:18 Dose: 25 mg Documented by: Ondansetron HCl (Ondansetron 4 Mg/2 Ml Vial) 4 mg IV Q8H PRN PRN PRN Reason: NAUSEA/VOMITING Last Admin: 02/19/20 07:58 Dose: 4 mg Documented by: Oxycodone HCl (Oxycodone 5 Mg Tablet) 5 mg PO Q4H PRN PRN PRN Reason: Pain Score 6-10 Last Admin: 02/20/20 03:56 Dose: 5 mg Documented by: Quetiapine Fumarate (Quetiapine 25 Mg Tablet) 25 mg PO QHS [facility] Last Admin: 02/20/20 21:32 Dose: 25 mg Documented by: Sodium Chloride (0.9% Saline Lock 10 Ml Syringe) 10 - 40 ml IV UD PRN PRN Reason: SALINE FLUSH Last Admin: 02/18/20 21:58 Dose: 20 ml Documented by: Ticagrelor (Ticagrelor 90 Mg Tablet) 90 mg PO BID [facility] Last Admin: 02/21/20 09:18 Dose: 90 mg Documented by: STROKE Vital Signs/Narrative: Vital Signs Pulse Resp BP BP Pulse Ox 02/21/20 09:18 121 H 107/55 L 02/21/20 07:00 126 H 24 H 99/50 L 90 02/21/20 06:57 134 H 26 H 92 Medical Necessity - Tobacco Use Smoking Status: Former smoker Assessment/Plan All Active Problems (Last Updated 07/01/17 @ 12:07 by Lisa Ferreira) STEMI (ST elevation myocardial infarction) (Ruled-out) Cardiac arrest (Acute) Torsades de pointes (Acute) Ventricular tachycardia (Acute) NSTEMI (non-ST elevated myocardial infarction) (Acute) Cardiogenic shock (Acute) # Acute hypoxic respiratory failure * Due to health associated pneumonia. * Has right upper lobe pneumonia due to gram-negative organisms with previous sputum cultures growing E. coli. * antibiotics broadened to vancomycin and meropenem. * Now on 12L of oxygen. Titrate oxygen to maintain saturation above 90%. * Blood cultures and sputum cultures negative * On breathing treatment with bronchodilators. * #Septic shock due to health associated pneumonia: * As above. now off levophed * Critical care on board. * now on hydrocortisone PO 20mg daily. * #Diarrhea: Improving. C. difficile screen was negative. #Acute on chronic heart failure with reduced ejection fraction: * EF is 40%. BNP is >1400 * ANGIE inhibitor and beta-nakul on hold on account of septic shock. * On IV lasix #Recent non-STEMI * On aspirin, statin and Brilinta. ANGIE inhibitor and beta-nakul on hold on account of hypotension and septic shock. * #Hypokalemia: resolved. # Anemia: * Hb is 9 today. * will continue monitoring * #History of adrenal insufficiency: on oral hydrocortisone. #COPD: On breathing treatments with bronchodilators. DVT prophylaxis: lovenox 40mg daily Inpatient E&M: [id number] [facility] L3
--- NOTE | 2020-02-21 10:58 | PN_ITS ---
Subjective: Patient with significant difficulties overnight. Patient with tachycardia and hypoxia and significant distress. Patient did respond to Lasix therapy and initiation of BiPAP, so intubation was not necessary. Blood pressures have been on the lower side. Patient has had periods of confusion General: Alert, Confused, Disoriented, - - Good BiPAP synchrony HEENT: Atraumatic, PERRLA, EOMI, Normocephalic, - - Scleral injection without icterus Oral: No Gingival or Mucosal Lesions/ Ulcerations, Dry Mucosa Neck: Supple, No Nodes, Trachea Midline, JVD, Right Lungs: Diminished, Rhonchi - Bilateral, Wheezes Cardiovascular: Normal S1, Normal S2, No murmurs, No rub noted, No Gallop, Tachycardic Abdomen: Bowel Sounds Present, Soft, Non Tender, Non-Distended, Obese Extremities: No clubbing, No cyanosis, Edema Skin: - - No change from previous Musculoskeletal: No Tenderness to Palpation of Joints or Extremities Lymphatic: No Cervical, Supraclavicular, or Inguinal Adenopathy Neurological: Cranial nerves II-XII grossly intact, Neuro grossly intact, Motor Exam 5/5 strength throughout Psych/Mental Status: Anxious, Impulsive, Restless Vital Signs Temp Pulse Resp BP Pulse Ox 39.2 C H 126 H 26 H 107/55 L 95 02/21/20 06:00 02/21/20 10:50 02/21/20 10:50 02/21/20 09:18 02/21/20 10:50 Oxygen Flow Rate (L/min) 12 Oxygen Delivery Method Bi-pap Weight: 65.5 kg Body Mass Index (BMI) 24.7 Finger Stick Blood Glucose 61 Intake and Output for Last 24 Hours 02/19/20 02/20/20 02/21/20 23:59 23:59 23:59 Intake Total 1580 / 1580 2240 / 2240 640 / 640 Output Total 3900 / 3970 3295 / 3295 275 / 275 Balance -2320 / -2390 -1055 / -1055 365 / 365 Labs (Last 48 Hours) 02/20/20 02/20/20 02/20/20 04:25 04:25 22:52 WBC 13.8 H RBC 3.42 L Hgb 10.4 L Hct 31.9 L MCV 93.3 MCH 30.4 MCHC 32.6 RDW Std Deviation 50.7 H RDW Coeff of Nehemiah 14.7 H Plt Count 261 MPV 10.3 Immature Gran % (Auto) 0.700 Neut % (Auto) 89.9 H Lymph % (Auto) 6.1 L [place] % (Auto) 2.5 Eos % (Auto) 0.4 Baso % (Auto) 0.4 Absolute Neuts (auto) 12.4 H Absolute Lymphs (auto) 0.84 Total Counted Neutrophils % (Manual) Band Neutrophils % Lymphocytes % (Manual) Monocytes % (Manual) Eosinophils % (Manual) Metamyelocytes % Nucleated RBC % 0.1 Diff Path Review Platelet Estimate Hypochromasia Specimen Type ART Sample Site L Radial pH 7.44 Bicarbonate Actual 27.7 H Total CO2 29 Base Excess 4 H O2 Saturation 94 L O2 % 75 ABG pCO2 41.2 ABG pO2 67 L Zhang Test Positive Respiration Rate 12 O2 Delivery Device BiPAP Tidal Volume 450 POC PEEP 10 POC Pressure Suppt 17 Sodium 137 Potassium 3.4 L Chloride 103 Carbon Dioxide 27.0 Anion Gap 7 BUN 14 Creatinine 0.70 Estim Creat Clear Calc 66.28 Est GFR (MDRD) Af Amer 109 Est GFR (MDRD) Non-Af 90 BUN/Creatinine Ratio 20.1 H Glucose 87 Calcium 8.5 02/21/20 02/21/20 05:40 05:40 WBC 9.7 RBC 2.97 L Hgb 9.0 L Hct 27.7 L MCV 93.3 MCH 30.3 MCHC 32.5 RDW Std Deviation 50.4 H RDW Coeff of Nehemiah 14.7 H Plt Count 267 MPV 10.5 Immature Gran % (Auto) Neut % (Auto) Not Reportable Lymph % (Auto) [place] % (Auto) Eos % (Auto) Baso % (Auto) Absolute Neuts (auto) 7.8 H Absolute Lymphs (auto) 1.16 Total Counted 100 Neutrophils % (Manual) 75 H Band Neutrophils % 5 Lymphocytes % (Manual) 12 L Monocytes % (Manual) 5 Eosinophils % (Manual) 2 Metamyelocytes % 1 Nucleated RBC % Diff Path Review May foll Platelet Estimate ADEQUATE Hypochromasia RARE Specimen Type Sample Site pH Bicarbonate Actual Total CO2 Base Excess O2 Saturation O2 % ABG pCO2 ABG pO2 Zhang Test Respiration Rate O2 Delivery Device Tidal Volume POC PEEP POC Pressure Suppt Sodium 134 L Potassium 3.8 Chloride 101 Carbon Dioxide 26.0 Anion Gap 7 BUN 17 Creatinine 0.65 Estim Creat Clear Calc 71.38 Est GFR (MDRD) Af Amer 118 Est GFR (MDRD) Non-Af 97 BUN/Creatinine Ratio 26.2 H Glucose 85 Calcium 7.7 L Microbiology 02/20/20 09:15 Urine Catheter - Michaud Urine Culture - Preliminary Culture exhibits no growth. 02/19/20 06:10 Sputum, Expectorated/Coughed Gram Stain - Final 02/19/20 06:10 Sputum, Expectorated/Coughed Respiratory Culture - Final Klebsiella pneumoniae sp pneum 02/16/20 16:41 Blood Culture (Wb) - Anticubital Left Blood Culture - Preliminary No growth in 48 hours. 02/16/20 16:40 Blood Culture (Wb) - Right Hand Blood Culture - Preliminary No growth in 48 hours. 02/16/20 17:20 Urine, Clean Catch Urine Culture - Final Culture exhibits no growth. Medical Necessity - Tobacco Use Smoking Status: Former smoker Assessment/Plan All Active Problems (Last Updated 07/01/17 @ 12:07 by Lisa Ferreira) STEMI (ST elevation myocardial infarction) (Ruled-out) Cardiac arrest (Acute) Torsades de pointes (Acute) Ventricular tachycardia (Acute) NSTEMI (non-ST elevated myocardial infarction) (Acute) Cardiogenic shock (Acute) RECOMMENDATIONS: 1. Administer additional dose of Lasix with potassium repletion as patient tolerates 2. Continue bronchodilators and steroids. Hold daytime Seroquel. Avoid Ativan. 3. Continue baseline hydrocortisone unless patient becomes hypotensive 4. Wean FiO2 to maintain oxygen saturations at or above 90%. 5. Encourage incentive spirometer use and mobilize patient as tolerated. 6. Continue to monitor in the intensive care unit IMPRESSIONS: 1. Acute on chronic hypoxemic respiratory failure secondary to acute on chronic CHF/Klebsiella pneumonia The patient was just discharged from the hospital on February 14 after having been admitted with respiratory failure as a consequence of acute cardiac arrest, necessitating revascularization. The patient was also noted to have an aspiration pneumonia during that hospitalization, which was being treated with antimicrobials. She does have an apparent history of COPD of unknown severity along with a baseline 2 L/min oxygen requirement. Patient growing only 1+ Klebsiella in the sputum, but was pretreated with antibiotics. This likely indicates this is a true infection and antibiotic should be continued. 2. History of COPD of unknown severity/history of tobacco dependency Continue scheduled bronchodilator therapy. Wean supplemental oxygen as tolerated. The patient would likely benefit from formal work-up in the pulmonary medicine clinic following discharge. 3. History of coronary artery disease status post CABG Continue current medical management per cardiology recommendations. Patient with sinus tachycardia with PACs on EKG this morning. 4. History of adrenal insufficiency The patient does have a history of adrenal insufficiency and is on baseline hydrocortisone therapy in her home environment. On baseline hydrocortisone. May transition back to IV stress dose steroids if blood pressure continues to fall. 5. Hypertension/hyperlipidemia/anxiety/costochondritis from CPR Complicates care, management, recovery and prognosis. Continue home medications as indicated. TIME: 35 minutes critical care time spent addressing patient's acute on chronic respiratory failure, fever, review of all data and collaboration with care team (8 AM to 9 AM) [id number]: [id number] Critical care first hour
--- NOTE | 2020-02-21 12:10 | CASEMGMT ---
RN CM NOTE: participated in ICU interdisciplinary rounds. Remains on Bipap 50%. Continuing Meropenem 1 gm IV. Pt failed mobility. Pt remains confused at times. Seroquel changed to once a day. Cardiac diet. DC plan is for TCU on discharge. Jose Roberto MEYER RN ACM
[2020-02-21] MEDS: Aspirin 81 MG TAB.CHEW PO (12:31)
[2020-02-21 12:49] LABS: Pathologist Review Reviewed
--- NOTE | 2020-02-21 13:03 | CASEMGMT ---
Social Work Social Work participated in ICU rounds. Pt is currently on Bipap. PT/OT is working with pt who is standing for 10 seconds before asking to sit. Physician stating pt will likly be here through the weekend. Phone call to TCU and a bed will be available on Tuesday for pt. EMMA Corrigan
[2020-02-21] MEDS: Acetaminophen 325 MG Tablet 650 MG PO (13:20)
[2020-02-21] MEDS: QUEtiapine 25 MG Tablet PO (21:59)
[2020-02-21] MEDS: Atorvastatin Calcium 10 MG Tablet PO (21:59)
[2020-02-21] MEDS: Hydrocortisone 10 MG Tablet PO (21:59)
[2020-02-21 22:31] LABS: Vancomycin, Trough Level 10.4 ug/mL (5.0-15.0)
[2020-02-22] VITALS (40 sets, daily range): BP systolic 102–139; BP diastolic 55–84; PULSE 90–118; RESP 12–32; TEMP 37.1–38.1; O2SAT 90–100
--- NOTE | 2020-02-22 01:03 | PCM.RX.CS ---
Consult Pharmacy has been consulted to manage selected antiobiotic: Vancomycin Type of Consult: Follow-up Suspected Infection: Pneumonia Prior Doses of Antibiotics Received/Current Regimen: Medications Vancomycin HCl 1,500 mg/ (Sodium Chloride) 530 mls @ 250 mls/hr IV Q12H ANTONIO Discontinued Medications Vancomycin HCl (Vancomycin) 1,000 mg in 200 mls @ 200 mls/hr IV Q12H ANTONIO Last Admin: 02/21/20 23:54 Dose: 200 mls/hr Labs: Sodium 134 mmol/L (136-145) L 02/21/20 05:40 Potassium 3.8 mmol/L (3.5-5.1) 02/21/20 05:40 Chloride 101 mmol/L (98-107) 02/21/20 05:40 Carbon Dioxide 26.0 mmol/L (21.0-32.0) 02/21/20 05:40 Anion Gap 7 (5-15) 02/21/20 05:40 BUN 17 mg/dL (7-18) 02/21/20 05:40 Creatinine 0.65 mg/dL (0.55-1.02) 02/21/20 05:40 Est GFR (MDRD) Af Amer 118 mL/min (>60) 02/21/20 05:40 Est GFR (MDRD) Non-Af 97 mL/min (>60) 02/21/20 05:40 BUN/Creatinine Ratio 26.2 RATIO (10-20) H 02/21/20 05:40 Glucose 85 mg/dL (74-106) 02/21/20 05:40 Vancomycin Trough 10.4 ug/mL (5.0-15.0) 02/21/20 21:50 Microbiology: Microbiology 02/20/20 09:15 Urine Catheter - Michaud Urine Culture - Preliminary Culture exhibits no growth. 02/19/20 06:10 Sputum, Expectorated/Coughed Gram Stain - Final 02/19/20 06:10 Sputum, Expectorated/Coughed Respiratory Culture - Final Klebsiella pneumoniae sp pneum 02/16/20 16:41 Blood Culture (Wb) - Anticubital Left Blood Culture - Preliminary No growth in 48 hours. 02/16/20 16:40 Blood Culture (Wb) - Right Hand Blood Culture - Preliminary No growth in 48 hours. 02/16/20 17:20 Urine, Clean Catch Urine Culture - Final Culture exhibits no growth. 02/17/20 03:55 Stool Enteric Bacteriology - Final 02/17/20 03:55 Stool C. difficile DNA Amplification - Final 02/17/20 02:25 Urine Catheter - Michaud Legionella Antigen - Final 02/17/20 02:25 Urine Catheter - Michaud Streptococcus pneumoniae Antigen (M - Final 02/16/20 16:45 Mucosa - Nose SARS-CoV-2 Antigen (Rapid) - Final Weight used for dosin.5 kg Estimated Creatinine Clearance: 71 Goal Trough: 15-20 mcg/mL Pharmacy Plan for Drug Dosing: Vancomycin trough level of 10.4 was below target range of 15-20. Will increase dose to 1500mg q12h and re-draw trough prior to 4th dose of new regimen. Pharmacy Service will continue to monitor and adjust dosing as required. Follow-Up Labs: Trough Vancomycin Labs to be done on [date and time ordered]: 02-23-20 @[id number]
[2020-02-22] MEDS: Ipratropium 0.5 MG/2.5 ML SOLUTION INHALATION ×6 (02:25→23:06)
[2020-02-22 04:11] LABS: Absolute Neutrophil Count 6.8 X10^3/uL (2.0-7.7); Basophil# 0.02 X10^3/uL; Basophil% 0.3 % (0-1); Eosinophil# 0.08 X10^3/uL; Hematocrit 23.3 % (37-47); Hemoglobin 7.5 g/dL (12.0-15.0); Lymphocyte % 6.5 % (19-41); Mean Corp Hgb Conc 32.2 g/dL (32-36); Mean Corpuscular Hgb 30.1 pg (27.0-32.0); Mean Corpuscular Volume 93.6 fL (81-99); Mean Platelet Vol. 10.7 fl (6.2-12.0); Monocyte# 0.13 X10^3/uL; Monocyte% 1.7 % (0-10); NRBC Flagged by Analyzer 0 % (0-5); Neutrophil # 6.84 X10^3/uL (2.7-7.7); Neutrophil % 89.1 % (47-70); POSITIVE DIFFERENTIAL YES; Platelet Count 258 K/mm3 (150-450); RBC Distribution Width SD 51.5 fl (35.1-43.9); Red Blood Count 2.49 M/mm3 (4.2-5.4); White Blood Count 7.7 K/mm3 (4.4-11.0)
[2020-02-22 04:16] LABS: Differential Indicated SCAN CRITERIA MET
[2020-02-22 04:19] LABS: Anion Gap 5 (5-15); BUN 15 mg/dL (7-18); BUN/Creat Ratio 38.7 RATIO (10-20); Calcium,Total 7.5 mg/dL (8.5-10.1); Chloride 104 mmol/L (98-107); Creatinine, Serum 0.39 mg/dL (0.55-1.02); EST Glomerular Filtration Rate 176 mL/min (>60); Est Glom Filt Rate - Afr Amer 213 mL/min (>60); Estimated Creatinine Clearance 118.96 ml/min; Glucose 103 mg/dL (74-106); Potassium 3.2 mmol/L (3.5-5.1); Sodium Level 139 mmol/L (136-145)
[2020-02-22 04:53] LABS: Differential Comment SCANNED
[2020-02-22 04:54] LABS: Hypochromasia RARE
[2020-02-22] MEDS: Menthol/Lanolin/Calamine/Znox 113 GM Tube 1 APPLIC TOPICAL ×3 (05:24→21:09)
[2020-02-22] MEDS: Furosemide 20 MG/2 ML VIAL IV (05:56)
--- NOTE | 2020-02-22 08:38 | PCM.PN.INT ---
Subjective: Patient did okay overnight. No acute issues were reported. Patient did wear BiPAP overnight with sleep. Patient feels subjectively improved compared to yesterday. Patient's goal is to work with therapy today. General: Alert, Oriented x3, Cooperative, No apparent distress, - - Less conversational dyspnea today HEENT: Atraumatic, PERRLA, EOMI, Normocephalic, - - Slight scleral injection Oral: Moist Mucosa, No Gingival or Mucosal Lesions/ Ulcerations Neck: Supple, No JVD, No Nodes, Trachea Midline Lungs: No rhonchi, No wheeze, Diminished, Rales Cardiovascular: Regular rate, Regular Rhythm, Normal S1, Normal S2, No murmurs, No rub noted, No Gallop Abdomen: Bowel Sounds Present, Soft, Non Tender, Non-Distended Extremities: No clubbing, No cyanosis, Edema Skin: - - No change from previous Musculoskeletal: No Tenderness to Palpation of Joints or Extremities Lymphatic: No Cervical, Supraclavicular, or Inguinal Adenopathy Neurological: Cranial nerves II-XII grossly intact, Neuro grossly intact, Motor Exam 5/5 strength throughout Psych/Mental Status: Alert and oriented to time, place, person, mood and affect Vital Signs Temp Pulse Resp BP Pulse Ox 37.5 C H 104 H 20 H 130/68 H 97 02/22/20 05:00 02/22/20 06:00 02/22/20 06:00 02/22/20 06:00 02/22/20 06:00 Oxygen Flow Rate (L/min) 12 Oxygen Delivery Method Airvo Weight: 68.2 kg Body Mass Index (BMI) 24.7 Finger Stick Blood Glucose 61 Intake and Output for Last 24 Hours 02/20/20 02/21/20 02/22/20 23:59 23:59 23:59 Intake Total 2240 / 2240 1480 / 1480 410 / 410 Output Total 3295 / 3295 2135 / 2285 375 / 375 Balance -1055 / -1055 -655 / -805 35 / 35 Labs (Last 48 Hours) 02/20/20 02/21/20 02/21/20 22:52 05:40 05:40 WBC 9.7 RBC 2.97 L Hgb 9.0 L Hct 27.7 L MCV 93.3 MCH 30.3 MCHC 32.5 RDW Std Deviation 50.4 H RDW Coeff of Nehemiah 14.7 H Plt Count 267 MPV 10.5 Immature Gran % (Auto) Neut % (Auto) Not Reportable Lymph % (Auto) [place] % (Auto) Eos % (Auto) Baso % (Auto) Absolute Neuts (auto) 7.8 H Absolute Lymphs (auto) 1.16 Total Counted 100 Neutrophils % (Manual) 75 H Band Neutrophils % 5 Lymphocytes % (Manual) 12 L Monocytes % (Manual) 5 Eosinophils % (Manual) 2 Metamyelocytes % 1 Nucleated RBC % Differential Comment Diff Path Review Reviewed Platelet Estimate ADEQUATE Hypochromasia RARE Specimen Type ART Sample Site L Radial pH 7.44 Bicarbonate Actual 27.7 H Total CO2 29 Base Excess 4 H O2 Saturation 94 L O2 % 75 ABG pCO2 41.2 ABG pO2 67 L Zhang Test Positive Respiration Rate 12 O2 Delivery Device BiPAP Tidal Volume 450 POC PEEP 10 POC Pressure Suppt 17 Sodium 134 L Potassium 3.8 Chloride 101 Carbon Dioxide 26.0 Anion Gap 7 BUN 17 Creatinine 0.65 Estim Creat Clear Calc 71.38 Est GFR (MDRD) Af Amer 118 Est GFR (MDRD) Non-Af 97 BUN/Creatinine Ratio 26.2 H Glucose 85 Calcium 7.7 L Vancomycin Trough 02/21/20 02/22/20 02/22/20 21:50 04:00 04:00 WBC 7.7 RBC 2.49 L Hgb 7.5 L Hct 23.3 L MCV 93.6 MCH 30.1 MCHC 32.2 RDW Std Deviation 51.5 H RDW Coeff of Nehemiah 15.0 H Plt Count 258 MPV 10.7 Immature Gran % (Auto) 1.400 H Neut % (Auto) 89.1 H Lymph % (Auto) 6.5 L [place] % (Auto) 1.7 Eos % (Auto) 1.0 Baso % (Auto) 0.3 Absolute Neuts (auto) 6.8 Absolute Lymphs (auto) 0.50 L Total Counted Neutrophils % (Manual) Band Neutrophils % Lymphocytes % (Manual) Monocytes % (Manual) Eosinophils % (Manual) Metamyelocytes % Nucleated RBC % 0 Differential Comment SCANNED Diff Path Review Platelet Estimate Hypochromasia RARE Specimen Type Sample Site pH Bicarbonate Actual Total CO2 Base Excess O2 Saturation O2 % ABG pCO2 ABG pO2 Zhang Test Respiration Rate O2 Delivery Device Tidal Volume POC PEEP POC Pressure Suppt Sodium 139 Potassium 3.2 L Chloride 104 Carbon Dioxide 30.0 Anion Gap 5 BUN 15 Creatinine 0.39 L Estim Creat Clear Calc 118.96 Est GFR (MDRD) Af Amer 213 Est GFR (MDRD) Non-Af 176 BUN/Creatinine Ratio 38.7 H Glucose 103 Calcium 7.5 L Vancomycin Trough 10.4 Microbiology 02/16/20 16:41 Blood Culture (Wb) - Anticubital Left Blood Culture - Final No growth in 5 days. 02/16/20 16:40 Blood Culture (Wb) - Right Hand Blood Culture - Final No growth in 5 days. 02/20/20 13:55 Blood Culture (Wb) - Right Hand Blood Culture - Preliminary No growth in 48 hours. 02/20/20 09:15 Urine Catheter - Michaud Urine Culture - Preliminary Culture exhibits no growth. 02/19/20 06:10 Sputum, Expectorated/Coughed Gram Stain - Final 02/19/20 06:10 Sputum, Expectorated/Coughed Respiratory Culture - Final Klebsiella pneumoniae sp pneum Medical Necessity - Tobacco Use Smoking Status: Former smoker Assessment/Plan All Active Problems (Last Updated 07/01/17 @ 12:07 by Lisa Ferreira) STEMI (ST elevation myocardial infarction) (Ruled-out) Cardiac arrest (Acute) Torsades de pointes (Acute) Ventricular tachycardia (Acute) NSTEMI (non-ST elevated myocardial infarction) (Acute) Cardiogenic shock (Acute) RECOMMENDATIONS: 1. Administer additional dose of Lasix with potassium repletion as patient tolerates 2. Continue bronchodilators. 3. Continue baseline hydrocortisone unless patient becomes hypotensive 4. Wean FiO2 to maintain oxygen saturations at or above 90%. 5. Encourage incentive spirometer use and mobilize patient as tolerated. 6. Continue to monitor in the intensive care unit IMPRESSIONS: 1. Acute on chronic hypoxemic respiratory failure secondary to acute on chronic CHF/Klebsiella pneumonia The patient was just discharged from the hospital on February 14 after having been admitted with respiratory failure as a consequence of acute cardiac arrest, necessitating revascularization. The patient was also noted to have an aspiration pneumonia during that hospitalization, which was being treated with antimicrobials. She does have an apparent history of COPD of unknown severity along with a baseline 2 L/min oxygen requirement. Patient growing only 1+ Klebsiella in the sputum, but was pretreated with antibiotics. This likely indicates this is a true infection and antibiotic should be continued. Vancomycin can be discontinued. We will continue to diuresis patient tolerates. 2. History of COPD of unknown severity/history of tobacco dependency Continue scheduled bronchodilator therapy. Wean supplemental oxygen as tolerated. The patient would likely benefit from formal work-up in the pulmonary medicine clinic following discharge. 3. History of coronary artery disease status post CABG Continue current medical management per cardiology recommendations. Patient with sinus tachycardia with PACs on EKG this morning. Patient tolerating beta-nakul well. 4. History of adrenal insufficiency The patient does have a history of adrenal insufficiency and is on baseline hydrocortisone therapy in her home environment. On baseline hydrocortisone. May transition back to IV stress dose steroids if blood pressure falls. 5. Hypertension/hyperlipidemia/anxiety/costochondritis from CPR Complicates care, management, recovery and prognosis. Continue home medications as indicated. TIME: 32 minutes critical care time spent addressing patient's acute on chronic respiratory failure, fever, review of all data and collaboration with care team (7:30 AM to 8:30 AM) [phone]: [id number] Critical care first hour
--- NOTE | 2020-02-22 10:29 | PN_ITS ---
Subjective: Patient seen and examined. She feels like her shortness of breath is much better from yesterday as she gets easily crescencio of the slightest exertion. She still has a low-grade fever and has remained tachycardic and tachypneic. Potassium is 3.2 today. Hemoglobin is dropped to 7.5 today. Vitals/I&O's: Vital Signs Temp Pulse Resp BP Pulse Ox 99.5 F H 104 H 20 H 130/68 H 97 02/22/20 05:00 02/22/20 06:00 02/22/20 06:00 02/22/20 06:00 02/22/20 06:00 Oxygen Flow Rate (L/min) 12 Oxygen Delivery Method Airvo Weight: 150 lb 5.684 oz Body Mass Index (BMI) 24.7 Finger Stick Blood Glucose 61 Intake and Output for Last 24 Hours 02/20/20 02/21/20 02/22/20 23:59 23:59 23:59 Intake Total 2240 / 2240 1480 / 1480 410 / 410 Output Total 3295 / 3295 2135 / 2285 375 / 375 Balance -1055 / -1055 -655 / -805 35 / 35 General: Alert, Oriented x3, Cooperative, No apparent distress HEENT: Atraumatic, PERRLA, EOMI, Normocephalic Oral: Dry Mucosa Neck: Supple, No JVD, Negative Carotid Bruits Lungs: - - coarse crackles in mid and lower lung gao, tachypneic; on AirVo Cardiovascular: Regular Rhythm, Normal S1, Normal S2, No murmurs, Tachycardic Abdomen: Bowel Sounds Present, Soft, Non Tender Extremities: No clubbing, No cyanosis, No edema, Capillary Refill Less than 3 Seconds Skin: No rashes, No breakdown Musculoskeletal: No Tenderness to Palpation of Joints or Extremities Lymphatic: No Cervical, Supraclavicular, or Inguinal Adenopathy Neurological: Cranial nerves II-XII grossly intact, Neuro grossly intact, Motor Exam 5/5 strength throughout Psych/Mental Status: Normal Affect, Appropriate, Alert and oriented to time, place, person, mood and affect Microbiology Past 72 Hours 02/20/20 09:15 Urine Catheter - Michaud Urine Culture - Final Culture exhibits no growth. 02/16/20 16:41 Blood Culture (Wb) - Anticubital Left Blood Culture - Final No growth in 5 days. 02/16/20 16:40 Blood Culture (Wb) - Right Hand Blood Culture - Final No growth in 5 days. 02/20/20 13:55 Blood Culture (Wb) - Right Hand Blood Culture - Preliminary No growth in 48 hours. 02/19/20 06:10 Sputum, Expectorated/Coughed Gram Stain - Final 02/19/20 06:10 Sputum, Expectorated/Coughed Respiratory Culture - Final Klebsiella pneumoniae sp pneum 02/16/20 17:20 Urine, Clean Catch Urine Culture - Final Culture exhibits no growth. Laboratory Results 02/21/20 05:40: Diff Path Review Reviewed 02/21/20 21:50: Vancomycin Trough 10.4 02/22/20 04:00: WBC 7.7, RBC 2.49 L, Hgb 7.5 L, Hct 23.3 L, MCV 93.6, MCH 30.1, MCHC 32.2, RDW Std Deviation 51.5 H, RDW Coeff of Nehemiah 15.0 H, Plt Count 258, MPV 10.7, Immature Gran % (Auto) 1.400 H, Neut % (Auto) 89.1 H, Lymph % (Auto) 6.5 L , [place] % (Auto) 1.7, Eos % (Auto) 1.0, Baso % (Auto) 0.3, Absolute Neuts (auto) 6.8, Absolute Lymphs (auto) 0.50 L, Nucleated RBC % 0, Differential Comment SCANNED, Hypochromasia RARE 02/22/20 04:00: Sodium 139, Potassium 3.2 L, Chloride 104, Carbon Dioxide 30.0, Anion Gap 5, BUN 15, Creatinine 0.39 L, Estim Creat Clear Calc 118.96, Est GFR (MDRD) Af Amer 213, Est GFR (MDRD) Non-Af 176, BUN/Creatinine Ratio 38.7 H, Glucose 103, Calcium 7.5 L Current Medications Acetaminophen (Acetaminophen 325 Mg Tablet) 650 mg PO Q6H PRN PRN PRN Reason: Pain Score 1-10/Temp > 100.7 F Last Admin: 02/21/20 13:20 Dose: 650 mg Documented by: Al Hydroxide/Mg Hydroxide (Mag Hydrox/Al Hydrox/Simeth 30 Ml Udc) 30 ml PO Q6H PRN PRN PRN Reason: Gastric Burning Aspirin (Aspirin 81 Mg Tab.Chew) 81 mg PO DAILY [facility] Last Admin: 02/21/20 12:31 Dose: 81 mg Documented by: Atorvastatin Calcium (Atorvastatin Calcium 10 Mg Tablet) 10 mg PO QHS [facility] Last Admin: 02/21/20 21:59 Dose: 10 mg Documented by: Benzonatate (Benzonatate 100 Mg Capsule) 100 mg PO TID PRN PRN PRN Reason: COUGH Last Admin: 02/20/20 08:33 Dose: 100 mg Documented by: Calamine/Phenol (Menthol/Lanolin/Calamine/Znox 113 Gm Tube) 1 applic TOPICAL TID [facility]; Protocol Last Admin: 02/22/20 05:24 Dose: 1 applicatio Documented by: Diphenhydramine HCl (Diphenhydramine 25 Mg Capsule) 25 mg PO BID PRN PRN PRN Reason: ITCHING Last Admin: 02/20/20 08:33 Dose: 25 mg Documented by: Docusate Sodium (Docusate Sodium 100 Mg Capsule) 100 mg PO BID PRN PRN PRN Reason: Constipation Enoxaparin Sodium (Enoxaparin 40 Mg/0.4 Ml Syringe) 40 mg SC DAILY [facility] Last Admin: 02/21/20 09:21 Dose: 40 mg Documented by: Hydrocortisone (Hydrocortisone 10 Mg Tablet) 20 mg PO DAILY [facility] Last Admin: 02/21/20 09:22 Dose: 20 mg Documented by: Hydrocortisone (Hydrocortisone 10 Mg Tablet) 10 mg PO QHS [facility] Last Admin: 02/21/20 21:59 Dose: 10 mg Documented by: Meropenem 1 gm/ Sodium (Chloride) 120 mls @ 33 mls/hr IV Q8 [facility] Last Admin: 02/22/20 05:24 Dose: 33 mls/hr Documented by: Ipratropium [place] (Ipratropium 0.5 Mg/2.5 Ml Solution) 0.5 mg INHALATION Q4H.RT [facility] Last Admin: 02/22/20 06:54 Dose: 0.5 mg Documented by: Melatonin (Melatonin 3 Mg Tablet) 3 mg PO QHS PRN PRN PRN Reason: INSOMNIA Last Admin: 02/19/20 21:58 Dose: 3 mg Documented by: Metoprolol Succinate (Metoprolol(Xl)Succ 25 Mg Tablet) 25 mg PO DAILY [facility] Last Admin: 02/21/20 09:18 Dose: 25 mg Documented by: Ondansetron HCl (Ondansetron 4 Mg/2 Ml Vial) 4 mg IV Q8H PRN PRN PRN Reason: NAUSEA/VOMITING Last Admin: 02/19/20 07:58 Dose: 4 mg Documented by: Oxycodone HCl (Oxycodone 5 Mg Tablet) 5 mg PO Q4H PRN PRN PRN Reason: Pain Score 6-10 Last Admin: 02/20/20 03:56 Dose: 5 mg Documented by: Quetiapine Fumarate (Quetiapine 25 Mg Tablet) 25 mg PO QHS [facility] Last Admin: 02/21/20 21:59 Dose: 25 mg Documented by: Sodium Chloride (0.9% Saline Lock 10 Ml Syringe) 10 - 40 ml IV UD PRN PRN Reason: SALINE FLUSH Last Admin: 02/18/20 21:58 Dose: 20 ml Documented by: Ticagrelor (Ticagrelor 90 Mg Tablet) 90 mg PO BID [facility] Last Admin: 02/21/20 21:59 Dose: 90 mg Documented by: Medical Necessity - Tobacco Use Smoking Status: Former smoker Assessment/Plan All Active Problems (Last Updated 07/01/17 @ 12:07 by Lisa Ferreira) STEMI (ST elevation myocardial infarction) (Ruled-out) Cardiac arrest (Acute) Torsades de pointes (Acute) Ventricular tachycardia (Acute) NSTEMI (non-ST elevated myocardial infarction) (Acute) Cardiogenic shock (Acute) # Acute hypoxic respiratory failure * Due to health associated pneumonia. * Has right upper lobe pneumonia due to gram-negative organisms with previous sputum cultures growing E. coli. * antibiotics broadened to vancomycin and meropenem. * on AirVO. * Blood cultures; sputum culture growing Klebsiella pneumoniae * On breathing treatment with bronchodilators. * #Septic shock due to health associated pneumonia: * As above. now off levophed * Critical care on board. * now on hydrocortisone PO 20mg daily. * #Diarrhea: Improving. C. difficile screen was negative. #Acute on chronic heart failure with reduced ejection fraction: * EF is 40%. BNP was >1400 * ANGIE inhibitor and beta-nakul on hold on account of septic shock. * On IV lasix #Recent non-STEMI * On aspirin, statin and Brilinta. metoprolol resumed since septic shock has resolved. * #Hypokalemia: resolved. # Anemia: * Hb is down to 7.5 today. will check stool for occult blood. * check iron panel. transfuse if Hb <7 * will continue monitoring * #History of adrenal insufficiency: on oral hydrocortisone. #COPD: On breathing treatments with bronchodilators. DVT prophylaxis: lovenox 40mg daily Inpatient E&M: [id number] [facility] Hosp L3
[2020-02-22] MEDS: Acetaminophen 325 MG Tablet 650 MG PO ×2 (10:59→21:06)
[2020-02-22] MEDS: Aspirin 81 MG TAB.CHEW PO (11:00)
[2020-02-22] MEDS: Enoxaparin 40 MG/0.4 ML Syringe SC (11:01)
[2020-02-22] MEDS: Hydrocortisone 10 MG Tablet 20 MG PO (11:01)
[2020-02-22] MEDS: Metoprolol(XL)Succ 25 MG Tablet PO (11:01)
[2020-02-22] MEDS: TICAGRELOR 90 MG TABLET PO ×2 (11:01→21:08)
[2020-02-22] MEDS: 0.9% Saline Lock 10 ML Syringe IV ×2 (11:03→21:15)
[2020-02-22 11:17] LABS: Ferritin 738 ng/mL (8-252); Iron 10 ug/dL (50-170); Iron Binding Capacity,Total 164 ug/dL (250-450); PERCENT IRON SATURATION 6.1 % (15.0-55.0)
--- NOTE | 2020-02-22 11:19 | CASEMGMT ---
Social Work SW attended ICU rounds. Pt will remain in unit through the weekend and will likely be ready for discharge on Tuesday. Phone call to [facility] in TCU and they will be able to accept pt on Tuesday. ASA met with pt and updated on d/c plan and she is agreeable. SW to continue to follow for d/c planning. EMMA Corrigan
--- NOTE | 2020-02-22 14:55 | CON.PCM_ITS ---
Problem List (1) Cardiac arrest Status: Acute Reason for Consult: pneumonia Consulted by: Dr. Rodriguez History of Present Illness: The patient is a 64 year old F presented with chest pain, cough, fever, SOB. Had just been admitted for cardiac arrest requiring cpr. Had been going on for a while, but was trying to make it through the holidays. This ED visit, admitted on vanc/zosyn, had worsening fever, changed to meropenem, feeling better overall. Full ROS performed and neg except as noted above. - Medical History Past Medical History (Chronic Problems): Chronic Problems (Last Updated 07/01/17 @ 12:07 by Lisa Ferreira) Chronic obstructive pulmonary disease (COPD) (Chronic) Tobacco use (Chronic) Presence of stent in coronary artery (Chronic) Stent assisted PTCA of prox LAD and cutting balloon 11/06/02; PTCA/Stent of the CX 09/18/13 Aortocoronary bypass status (Chronic ~09/24/13) CABG x 3- KENNY to LAD, SVG to OM, SVG to distal right 09/24/13 Peripheral vascular insufficiency (Chronic) History of myocardial infarction (Chronic) Atherosclerotic heart disease of [place] coronary artery without angina pectoris (Chronic) CABG x 3- KENNY to LAD, SVG to OM, SVG to distal right 09/24/13; Stent assisted PTCA of prox LAD and cutting balloon 11/06/02; PTCA/Stent of the CX 09/18/13 S/P PTCA (percutaneous transluminal coronary angioplasty) (Chronic) Stent assisted PTCA of prox LAD and cutting balloon 11/06/02; PTCA/Stent of the CX 09/18/13 Hyperlipidemia (Chronic) Hypertension (Chronic) Squamous cell carcinoma of left lung (Chronic) Allergies/Adverse Reactions: Allergies atorvastatin Adverse Reaction (Severe, Verified 02/16/20 16:30) Myalgias hydrocodone Adverse Reaction (Verified 02/16/20 16:30) Itching hydrocodone bitartrate [From Vicodin] Adverse Reaction (Verified 02/16/20 16:30) Itching oxycodone HCl [From Percocet] Adverse Reaction (Verified 02/16/20 16:30) Itching Home Medications: Ambulatory Orders Medication Instructions Recorded Aspirin [Aspirin, Baby] 81 mg PO DAILY 02/17/13 Lorazepam [Ativan] 1 mg PO QHS 07/25/18 Hydrocortisone [Cortef] 10 mg PO QHS 02/11/20 Hydrocortisone [Cortef] 20 mg PO DAILY 02/11/20 Acetaminophen [Tylenol Tablet] 650 mg PO Q4H PRN PRN tab 02/15/20 Albuterol Sulfate [Albuterol 2 puff IH Q4H PRN PRN #1 inhaler 02/15/20 Sulfate HFA] Oxycodone [Oxyir] 5 mg PO Q4H PRN PRN 3 Days #15 tab 02/15/20 Amoxicillin/Potassium Clav 1 ea PO BID 02/16/20 [Augmentin 875-125 Tablet] Atorvastatin Calcium [Lipitor] 10 mg PO QHS 02/16/20 Furosemide [Lasix] 40 mg PO DAILY 02/16/20 Lisinopril [Zestril] 5 mg PO DAILY 02/16/20 Metoprolol(XL)Succ [Toprol Xl 25 mg PO DAILY 02/16/20 (Beta Herminia)] Potassium Chloride [K-Dur] 20 meq PO BIDCM 02/16/20 Ticagrelor [Brilinta] 90 mg PO BID 02/16/20 - Social History SMOKING STATUS:: Former smoker Vital Signs Temp Pulse Resp BP Pulse Ox 99.9 F H 103 H 22 H 105/59 L 90 02/22/20 14:00 02/22/20 14:46 02/22/20 14:46 02/22/20 14:00 02/22/20 14:00 Oxygen Flow Rate (L/min) 50 Oxygen Delivery Method Airvo Weight: 68.2 kg Body Mass Index (BMI) 24.7 Finger Stick Blood Glucose 61 Microbiology Past 72 Hours 02/20/20 09:15 Urine Culture - Final Urine Catheter - Michaud Culture exhibits no growth. 02/16/20 16:41 Blood Culture - Final Blood Culture (Wb) - Anticubital Left No growth in 5 days. 02/16/20 16:40 Blood Culture - Final Blood Culture (Wb) - Right Hand No growth in 5 days. 02/20/20 13:55 Blood Culture - Preliminary Blood Culture (Wb) - Right Hand No growth in 48 hours. 02/19/20 06:10 Gram Stain - Final Sputum, Expectorated/Coughed Respiratory Culture - Final Klebsiella pneumoniae sp pneum Laboratory Tests Past 24 Hrs 01/07/21 01/08/21 01/08/21 21:50 04:00 04:00 WBC 7.7 RBC 2.49 L Hgb 7.5 L Hct 23.3 L MCV 93.6 MCH 30.1 MCHC 32.2 RDW Std Deviation 51.5 H RDW Coeff of Nehemiah 15.0 H Plt Count 258 MPV 10.7 Immature Gran % (Auto) 1.400 H Neut % (Auto) 89.1 H Lymph % (Auto) 6.5 L [place] % (Auto) 1.7 Eos % (Auto) 1.0 Baso % (Auto) 0.3 Absolute Neuts (auto) 6.8 Absolute Lymphs (auto) 0.50 L Nucleated RBC % 0 Differential Comment SCANNED Hypochromasia RARE Sodium 139 Potassium 3.2 L Chloride 104 Carbon Dioxide 30.0 Anion Gap 5 BUN 15 Creatinine 0.39 L Estim Creat Clear Calc 118.96 Est GFR (MDRD) Af Amer 213 Est GFR (MDRD) Non-Af 176 BUN/Creatinine Ratio 38.7 H Glucose 103 Calcium 7.5 L Iron TIBC Iron Saturation Ferritin Vancomycin Trough 10.4 02/22/20 04:00 WBC RBC Hgb Hct MCV MCH MCHC RDW Std Deviation RDW Coeff of Nehemiah Plt Count MPV Immature Gran % (Auto) Neut % (Auto) Lymph % (Auto) [place] % (Auto) Eos % (Auto) Baso % (Auto) Absolute Neuts (auto) Absolute Lymphs (auto) Nucleated RBC % Differential Comment Hypochromasia Sodium Potassium Chloride Carbon Dioxide Anion Gap BUN Creatinine Estim Creat Clear Calc Est GFR (MDRD) Af Amer Est GFR (MDRD) Non-Af BUN/Creatinine Ratio Glucose Calcium Iron 10 L TIBC 164 L Iron Saturation 6.1 L Ferritin 738 H Vancomycin Trough - Other Studies Radiology: [] reviewed Other Studies: [] Route of nutrition/ use of supplements: [] Nutritional Intake: [] IV Site: [] Michaud Catheter: [] - Physical Exam General: Alert, Cooperative, No apparent distress HEENT: Atraumatic, PERRLA, EOMI Neck: Supple, No Nodes Lungs: Diminished, Rhonchi, Wheezes Cardiovascular: Tachycardic Abdomen: Soft, Non Tender, Non-Distended Extremities: No edema Skin: No rashes IV Site: Peripheral, without redness Musculoskeletal: No Tenderness to Palpation of Joints or Extremities Neurological: Cranial nerves II-XII grossly intact - Assessment/Plan Antibiotics: [] Assessment/Plan: [] sepsis due to pneumonia s/p recent cardiac arrest - fever and wbc improving, on meropenem, cxs neg so far. Covid was neg. Sputum with klebs. Will follow, thank you
[2020-02-22] MEDS: Atorvastatin Calcium 10 MG Tablet PO (21:08)
[2020-02-22] MEDS: QUEtiapine 25 MG Tablet PO (21:08)
[2020-02-22] MEDS: Hydrocortisone 10 MG Tablet PO (21:08)
[2020-02-23] VITALS (26 sets, daily range): BP systolic 98–123; BP diastolic 54–84; PULSE 82–104; RESP 15–28; TEMP 36.4–37.1; O2SAT 92–100
[2020-02-23] MEDS: Ipratropium 0.5 MG/2.5 ML SOLUTION INHALATION ×6 (03:27→23:46)
[2020-02-23 04:27] LABS: Absolute Lymphocyte Count 0.64 X10^3/uL (0.83-4.51); Absolute Neutrophil Count 5.7 X10^3/uL (2.0-7.7); Basophil# 0.02 X10^3/uL; Basophil% 0.3 % (0-1); Eosinophil# 0.03 X10^3/uL; Eosinophils% 0.5 % (0-5); Hematocrit 24.7 % (37-47); Hemoglobin 8.2 g/dL (12.0-15.0); Lymphocyte # 0.64 X10^3/ul (4.0); Lymphocyte % 9.7 % (19-41); Mean Corp Hgb Conc 33.2 g/dL (32-36); Mean Corpuscular Hgb 30.4 pg (27.0-32.0); Mean Corpuscular Volume 91.5 fL (81-99); Mean Platelet Vol. 11.1 fl (6.2-12.0); Monocyte# 0.17 X10^3/uL; Monocyte% 2.6 % (0-10); NRBC Flagged by Analyzer 0 % (0-5); Neutrophil # 5.68 X10^3/uL (2.7-7.7); Neutrophil % 85.5 % (47-70); Platelet Count 273 K/mm3 (150-450); RBC Distribution Width CV 14.7 % (11.6-14.6); RBC Distribution Width SD 49.5 fl (35.1-43.9); White Blood Count 6.6 K/mm3 (4.4-11.0)
[2020-02-23 04:40] LABS: Anion Gap 6 (5-15); BUN 19 mg/dL (7-18); BUN/Creat Ratio 38.9 RATIO (10-20); Calcium,Total 7.8 mg/dL (8.5-10.1); Chloride 104 mmol/L (98-107); Creatinine, Serum 0.49 mg/dL (0.55-1.02); EST Glomerular Filtration Rate 135 mL/min (>60); Est Glom Filt Rate - Afr Amer 164 mL/min (>60); Estimated Creatinine Clearance 94.69 ml/min; Glucose 118 mg/dL (74-106); Sodium Level 141 mmol/L (136-145)
[2020-02-23] MEDS: Acetaminophen 325 MG Tablet 650 MG PO ×3 (04:42→17:18)
[2020-02-23] MEDS: Menthol/Lanolin/Calamine/Znox 113 GM Tube 1 APPLIC TOPICAL ×3 (04:42→20:33)
[2020-02-23] MEDS: Furosemide 20 MG/2 ML VIAL IV (05:52)
--- NOTE | 2020-02-23 07:35 | PCM.PN.INT ---
Subjective: Patient did well overnight. Oxygenation continues to improve. Patient feels stronger today compared to previous. Chest pain is being controlled with Tylenol. General: Alert, Oriented x3, Cooperative, No apparent distress, - - Speaking in full sentences HEENT: Atraumatic, PERRLA, EOMI, Normocephalic, - - No scleral icterus or injection Oral: Moist Mucosa, No Gingival or Mucosal Lesions/ Ulcerations Neck: Supple, No Nodes, Trachea Midline, JVD, Right Lungs: No rhonchi, No wheeze, No rales, Diminished, - - Symmetric expansion. No dullness to percussion. Cardiovascular: Regular rate, Regular Rhythm, Normal S1, Normal S2, No murmurs, No rub noted, No Gallop, - - Sinus rhythm noted on telemetry Abdomen: Bowel Sounds Present, Soft, Non Tender, Non-Distended Extremities: No clubbing, No cyanosis, Edema Skin: - - No change from previous Musculoskeletal: No Tenderness to Palpation of Joints or Extremities Lymphatic: No Cervical, Supraclavicular, or Inguinal Adenopathy Neurological: Cranial nerves II-XII grossly intact, Neuro grossly intact, Motor Exam 5/5 strength throughout Psych/Mental Status: Alert and oriented to time, place, person, mood and affect Vital Signs Temp Pulse Resp BP Pulse Ox 37.0 C 94 23 H 98/55 L 94 02/23/20 06:00 02/23/20 06:53 02/23/20 06:53 02/23/20 06:00 02/23/20 06:53 Oxygen Flow Rate (L/min) 40 Oxygen Delivery Method Airvo Weight: 63.7 kg Body Mass Index (BMI) 24.7 Finger Stick Blood Glucose 61 Intake and Output for Last 24 Hours 02/21/20 02/22/20 02/23/20 23:59 23:59 23:59 Intake Total 1480 / 1480 1400 / 1400 340 / 340 Output Total 2135 / 2285 3710 / 3710 300 / 300 Balance -655 / -805 -2310 / -2310 40 / 40 Labs (Last 48 Hours) 02/21/20 02/21/20 02/22/20 05:40 21:50 04:00 WBC 7.7 RBC 2.49 L Hgb 7.5 L Hct 23.3 L MCV 93.6 MCH 30.1 MCHC 32.2 RDW Std Deviation 51.5 H RDW Coeff of Nehemiah 15.0 H Plt Count 258 MPV 10.7 Immature Gran % (Auto) 1.400 H Neut % (Auto) 89.1 H Lymph % (Auto) 6.5 L Bowman % (Auto) 1.7 Eos % (Auto) 1.0 Baso % (Auto) 0.3 Absolute Neuts (auto) 6.8 Absolute Lymphs (auto) 0.50 L Nucleated RBC % 0 Differential Comment SCANNED Diff Path Review Reviewed Hypochromasia RARE Sodium Potassium Chloride Carbon Dioxide Anion Gap BUN Creatinine Estim Creat Clear Calc Est GFR (MDRD) Af Amer Est GFR (MDRD) Non-Af BUN/Creatinine Ratio Glucose Calcium Magnesium Iron TIBC Iron Saturation Ferritin Vancomycin Trough 10.4 02/22/20 02/22/20 02/23/20 04:00 04:00 04:20 WBC 6.6 RBC 2.70 L Hgb 8.2 L Hct 24.7 L MCV 91.5 MCH 30.4 MCHC 33.2 RDW Std Deviation 49.5 H RDW Coeff of Nehemiah 14.7 H Plt Count 273 MPV 11.1 Immature Gran % (Auto) 1.400 H Neut % (Auto) 85.5 H Lymph % (Auto) 9.7 L Bowman % (Auto) 2.6 Eos % (Auto) 0.5 Baso % (Auto) 0.3 Absolute Neuts (auto) 5.7 Absolute Lymphs (auto) 0.64 L Nucleated RBC % 0 Differential Comment Diff Path Review Hypochromasia Sodium 139 Potassium 3.2 L Chloride 104 Carbon Dioxide 30.0 Anion Gap 5 BUN 15 Creatinine 0.39 L Estim Creat Clear Calc 118.96 Est GFR (MDRD) Af Amer 213 Est GFR (MDRD) Non-Af 176 BUN/Creatinine Ratio 38.7 H Glucose 103 Calcium 7.5 L Magnesium Iron 10 L TIBC 164 L Iron Saturation 6.1 L Ferritin 738 H Vancomycin Trough 02/23/20 02/23/20 04:20 04:20 WBC RBC Hgb Hct MCV MCH MCHC RDW Std Deviation RDW Coeff of Nehemiah Plt Count MPV Immature Gran % (Auto) Neut % (Auto) Lymph % (Auto) [place] % (Auto) Eos % (Auto) Baso % (Auto) Absolute Neuts (auto) Absolute Lymphs (auto) Nucleated RBC % Differential Comment Diff Path Review Hypochromasia Sodium 141 Potassium 3.0 L Chloride 104 Carbon Dioxide 31.0 Anion Gap 6 BUN 19 H Creatinine 0.49 L Estim Creat Clear Calc 94.69 Est GFR (MDRD) Af Amer 164 Est GFR (MDRD) Non-Af 135 BUN/Creatinine Ratio 38.9 H Glucose 118 H Calcium 7.8 L Magnesium Pending Iron TIBC Iron Saturation Ferritin Vancomycin Trough Microbiology 02/23/20 02:45 Stool Stool Occult Blood (MILDRED) - Final 02/20/20 09:15 Urine Catheter - Michaud Urine Culture - Final Culture exhibits no growth. 02/16/20 16:41 Blood Culture (Wb) - Anticubital Left Blood Culture - Final No growth in 5 days. 02/16/20 16:40 Blood Culture (Wb) - Right Hand Blood Culture - Final No growth in 5 days. 02/20/20 13:55 Blood Culture (Wb) - Right Hand Blood Culture - Preliminary No growth in 48 hours. 02/19/20 06:10 Sputum, Expectorated/Coughed Gram Stain - Final 02/19/20 06:10 Sputum, Expectorated/Coughed Respiratory Culture - Final Klebsiella pneumoniae sp pneum Medical Necessity - Tobacco Use Smoking Status: Former smoker Assessment/Plan All Active Problems (Last Updated 07/01/17 @ 12:07 by Lisa Ferreira) STEMI (ST elevation myocardial infarction) (Ruled-out) Cardiac arrest (Acute) Torsades de pointes (Acute) Ventricular tachycardia (Acute) NSTEMI (non-ST elevated myocardial infarction) (Acute) Cardiogenic shock (Acute) RECOMMENDATIONS: 1. Administer additional dose of Lasix with potassium repletion as patient tolerates 2. Continue bronchodilators. 3. Continue baseline hydrocortisone unless patient becomes hypotensive 4. Wean FiO2 to maintain oxygen saturations at or above 90%. 5. Encourage incentive spirometer use and mobilize patient as tolerated. 6. Likely okay to transition out of the intensive care unit from my perspective IMPRESSIONS: 1. Acute on chronic hypoxemic respiratory failure secondary to acute on chronic CHF/Klebsiella pneumonia The patient was just discharged from the hospital on February 14 after having been admitted with respiratory failure as a consequence of acute cardiac arrest, necessitating revascularization. The patient was also noted to have an aspiration pneumonia during that hospitalization, which was being treated with antimicrobials. She does have an apparent history of COPD of unknown severity along with a baseline 2 L/min oxygen requirement. Patient growing only 1+ Klebsiella in the sputum, but was pretreated with antibiotics. This likely indicates this is a true infection and antibiotic should be continued. Defer antibiotics to infectious disease. We will continue to diuresis patient tolerates, but will need aggressive potassium repletion 2. History of COPD of unknown severity/history of tobacco dependency Continue scheduled bronchodilator therapy. Wean supplemental oxygen as tolerated. The patient would likely benefit from formal work-up in the pulmonary medicine clinic following discharge. 3. History of coronary artery disease status post CABG Continue current medical management per cardiology recommendations. Patient with sinus tachycardia with PACs on EKG this morning. Patient tolerating beta-nakul well. 4. History of adrenal insufficiency The patient does have a history of adrenal insufficiency and is on baseline hydrocortisone therapy in her home environment. On baseline hydrocortisone. May transition back to IV stress dose steroids only if blood pressure falls. 5. Hypertension/hyperlipidemia/anxiety/costochondritis from CPR Complicates care, management, recovery and prognosis. Continue home medications as indicated. Inpatient E&M: [id number] [facility] H[facility] L3
--- NOTE | 2020-02-23 07:37 | PCM.PN.HOSP ---
Patient Problems: Active and Suspected Problems (Last Updated 07/01/17 @ 12:07 by Lisa Ferreira) Cardiac arrest (Acute) Subjective: Patient seen and examined. No active events overnight. She is now on 6L of oxygen by nasal canula. Her breathing is getting better. She complains of burning with the Michaud catheter in place. Still remains tachypneic but tachycardia has resolved and fever has also resolved. Potassium was 3 today. Hb is 8.2 today. Vitals/I&O's: Vital Signs Temp Pulse Resp BP Pulse Ox 98.6 F 94 23 H 98/55 L 94 02/23/20 06:00 02/23/20 06:53 02/23/20 06:53 02/23/20 06:00 02/23/20 06:53 Oxygen Flow Rate (L/min) 40 Oxygen Delivery Method Airvo Weight: 140 lb 6.951 oz Body Mass Index (BMI) 24.7 Finger Stick Blood Glucose 61 Intake and Output for Last 24 Hours 02/21/20 02/22/20 02/23/20 23:59 23:59 23:59 Intake Total 1480 / 1480 1400 / 1400 340 / 340 Output Total 2135 / 2285 3710 / 3710 300 / 300 Balance -655 / -805 -2310 / -2310 40 / 40 General: Alert, Oriented x3, Cooperative, No apparent distress HEENT: Atraumatic, PERRLA, EOMI, Normocephalic Oral: Dry Mucosa Neck: Supple, No JVD, Negative Carotid Bruits Lungs: - - coarse crackles in mid and lower lung gao, tachypneic; on AirVo Cardiovascular: Regular Rhythm, Normal S1, Normal S2, No murmurs, Tachycardic Abdomen: Bowel Sounds Present, Soft, Non Tender Extremities: No clubbing, No cyanosis, No edema, Capillary Refill Less than 3 Seconds Skin: No rashes, No breakdown Musculoskeletal: No Tenderness to Palpation of Joints or Extremities Lymphatic: No Cervical, Supraclavicular, or Inguinal Adenopathy Neurological: Cranial nerves II-XII grossly intact, Neuro grossly intact, Motor Exam 5/5 strength throughout Psych/Mental Status: Normal Affect, Appropriate, Alert and oriented to time, place, person, mood and affect Microbiology Past 72 Hours 02/23/20 02:45 Stool Stool Occult Blood (MILDRED) - Final 02/20/20 09:15 Urine Catheter - Michaud Urine Culture - Final Culture exhibits no growth. 02/16/20 16:41 Blood Culture (Wb) - Anticubital Left Blood Culture - Final No growth in 5 days. 02/16/20 16:40 Blood Culture (Wb) - Right Hand Blood Culture - Final No growth in 5 days. 02/20/20 13:55 Blood Culture (Wb) - Right Hand Blood Culture - Preliminary No growth in 48 hours. 02/19/20 06:10 Sputum, Expectorated/Coughed Gram Stain - Final 02/19/20 06:10 Sputum, Expectorated/Coughed Respiratory Culture - Final Klebsiella pneumoniae sp pneum Laboratory Results 02/22/20 04:00: Iron 10 L, TIBC 164 L, Iron Saturation 6.1 L, Ferritin 738 H 02/23/20 04:20: WBC 6.6, RBC 2.70 L, Hgb 8.2 L, Hct 24.7 L, MCV 91.5, MCH 30.4, MCHC 33.2, RDW Std Deviation 49.5 H, RDW Coeff of Nehemiah 14.7 H, Plt Count 273, MPV 11.1, Immature Gran % (Auto) 1.400 H, Neut % (Auto) 85.5 H, Lymph % (Auto) 9.7 L, [place] % (Auto) 2.6, Eos % (Auto) 0.5, Baso % (Auto) 0.3, Absolute Neuts (auto) 5.7, Absolute Lymphs (auto) 0.64 L, Nucleated RBC % 0 02/23/20 04:20: Sodium 141, Potassium 3.0 L, Chloride 104, Carbon Dioxide 31.0, Anion Gap 6, BUN 19 H, Creatinine 0.49 L, Estim Creat Clear Calc 94.69, Est GFR (MDRD) Af Amer 164, Est GFR (MDRD) Non-Af 135, BUN/Creatinine Ratio 38.9 H, Glucose 118 H, Calcium 7.8 L 02/23/20 04:20: Magnesium Pending Current Medications Acetaminophen (Acetaminophen 325 Mg Tablet) 650 mg PO Q6H PRN PRN PRN Reason: Pain Score 1-10/Temp > 100.7 F Last Admin: 02/23/20 04:42 Dose: 650 mg Documented by: Al Hydroxide/Mg Hydroxide (Mag Hydrox/Al Hydrox/Simeth 30 Ml Udc) 30 ml PO Q6H PRN PRN PRN Reason: Gastric Burning Aspirin (Aspirin 81 Mg Tab.Chew) 81 mg PO DAILY [facility] Last Admin: 02/22/20 11:00 Dose: 81 mg Documented by: Atorvastatin Calcium (Atorvastatin Calcium 10 Mg Tablet) 10 mg PO QHS [facility] Last Admin: 02/22/20 21:08 Dose: 10 mg Documented by: Benzonatate (Benzonatate 100 Mg Capsule) 100 mg PO TID PRN PRN PRN Reason: COUGH Last Admin: 02/20/20 08:33 Dose: 100 mg Documented by: Calamine/Phenol (Menthol/Lanolin/Calamine/Znox 113 Gm Tube) 1 applic TOPICAL TID [facility]; Protocol Last Admin: 02/23/20 04:42 Dose: 1 applicatio Documented by: Diphenhydramine HCl (Diphenhydramine 25 Mg Capsule) 25 mg PO BID PRN PRN PRN Reason: ITCHING Last Admin: 02/20/20 08:33 Dose: 25 mg Documented by: Docusate Sodium (Docusate Sodium 100 Mg Capsule) 100 mg PO BID PRN PRN PRN Reason: Constipation Enoxaparin Sodium (Enoxaparin 40 Mg/0.4 Ml Syringe) 40 mg SC DAILY [facility] Last Admin: 02/22/20 11:01 Dose: 40 mg Documented by: Hydrocortisone (Hydrocortisone 10 Mg Tablet) 20 mg PO DAILY [facility] Last Admin: 02/22/20 11:01 Dose: 20 mg Documented by: Hydrocortisone (Hydrocortisone 10 Mg Tablet) 10 mg PO QHS [facility] Last Admin: 02/22/20 21:08 Dose: 10 mg Documented by: Meropenem 1 gm/ Sodium (Chloride) 120 mls @ 33 mls/hr IV Q8 [facility] Last Admin: 02/23/20 05:45 Dose: 33 mls/hr Documented by: Potassium Chloride 40 meq/ (Sodium Chloride) 120 mls @ 100 mls/hr IV BOLUS X1 ONE Stop: 02/23/20 15:11 Ipratropium [place] (Ipratropium 0.5 Mg/2.5 Ml Solution) 0.5 mg INHALATION Q4H.RT [facility] Last Admin: 02/23/20 06:52 Dose: 0.5 mg Documented by: Melatonin (Melatonin 3 Mg Tablet) 3 mg PO QHS PRN PRN PRN Reason: INSOMNIA Last Admin: 02/19/20 21:58 Dose: 3 mg Documented by: Metoprolol Succinate (Metoprolol(Xl)Succ 25 Mg Tablet) 25 mg PO DAILY [facility] Last Admin: 02/22/20 11:01 Dose: 25 mg Documented by: Ondansetron HCl (Ondansetron 4 Mg/2 Ml Vial) 4 mg IV Q8H PRN PRN PRN Reason: NAUSEA/VOMITING Last Admin: 02/19/20 07:58 Dose: 4 mg Documented by: Oxycodone HCl (Oxycodone 5 Mg Tablet) 5 mg PO Q4H PRN PRN PRN Reason: Pain Score 6-10 Last Admin: 02/20/20 03:56 Dose: 5 mg Documented by: Potassium Chloride (Potassium Chloride 20 Meq Tablet) 20 meq PO X1 ONE Stop: 02/23/20 08:01 Quetiapine Fumarate (Quetiapine 25 Mg Tablet) 25 mg PO QHS [facility] Last Admin: 02/22/20 21:08 Dose: 25 mg Documented by: Sodium Chloride (0.9% Saline Lock 10 Ml Syringe) 10 - 40 ml IV UD PRN PRN Reason: SALINE FLUSH Last Admin: 02/22/20 21:15 Dose: 10 ml Documented by: Ticagrelor (Ticagrelor 90 Mg Tablet) 90 mg PO BID [facility] Last Admin: 02/22/20 21:08 Dose: 90 mg Documented by: STROKE Vital Signs/Narrative: Vital Signs Temp Pulse Resp BP Pulse Ox 02/23/20 06:53 89 23 H 94 02/23/20 06:00 98.6 F 104 H 20 H 98/55 L 94 02/23/20 05:00 98.4 F 97 20 H 98/84 H 94 02/23/20 04:00 98.3 F 87 25 H 116/70 98 02/23/20 03:43 91 Medical Necessity - Tobacco Use Smoking Status: Former smoker Assessment/Plan All Active Problems (Last Updated 07/01/17 @ 12:07 by Lisa Ferreira) STEMI (ST elevation myocardial infarction) (Ruled-out) Cardiac arrest (Acute) Torsades de pointes (Acute) Ventricular tachycardia (Acute) NSTEMI (non-ST elevated myocardial infarction) (Acute) Cardiogenic shock (Acute) # Acute hypoxic respiratory failure Due to health associated pneumonia. Has right upper lobe pneumonia due to gram-negative organisms with previous sputum cultures growing E. coli. antibiotics broadened to vancomycin and meropenem. on AirVO. oxygen requirments decreaasing. Blood cultures; sputum culture growing Klebsiella pneumoniae On breathing treatment with bronchodilators. #Septic shock due to health associated pneumonia: As above. now off levophed Critical care on board. now on hydrocortisone PO 20mg daily. #Diarrhea: Improving. C. difficile screen was negative. #Acute on chronic heart failure with reduced ejection fraction: EF is 40%. BNP was >1400 ANGIE inhibitor and beta-nakul on hold on account of septic shock. On IV lasix #Recent non-STEMI On aspirin, statin and Brilinta. metoprolol resumed since septic shock has resolved. #Hypokalemia: potassium today is 3. Will replace per protocol. Check magnesium level # Anemia: Hb today is 8.2. Iron panel showed iron of 10 with iron saturation of 6.1 but elevated ferritin of 738 with TIBC of 164 which indicates anemia of chronic disease. transfuse if Hb <7 #History of adrenal insufficiency: on oral hydrocortisone. #COPD: On breathing treatments with bronchodilators. DVT prophylaxis: lovenox 40mg daily Disposition:transfer to PCU Inpatient E&M: [id number] [facility] Hosp L3
[2020-02-23 07:55] LABS: Magnesium 1.8 mg/dL (1.6-2.6)
[2020-02-23] MEDS: Aspirin 81 MG TAB.CHEW PO (08:40)
[2020-02-23] MEDS: Enoxaparin 40 MG/0.4 ML Syringe SC (08:40)
[2020-02-23] MEDS: Metoprolol(XL)Succ 25 MG Tablet PO (08:40)
[2020-02-23] MEDS: Hydrocortisone 10 MG Tablet 20 MG PO (08:41)
[2020-02-23] MEDS: TICAGRELOR 90 MG TABLET PO ×2 (08:41→20:34)
--- NOTE | 2020-02-23 11:55 | CPS ---
Patient does not like the pep device and refuses to use it
[2020-02-23] MEDS: 0.9% NaCl IVPB Med Flush (250 mL) 15 ML IV (18:08)
[2020-02-23] MEDS: Hydrocortisone 10 MG Tablet PO (20:34)
[2020-02-23] MEDS: QUEtiapine 25 MG Tablet PO (20:34)
[2020-02-23] MEDS: Atorvastatin Calcium 10 MG Tablet PO (20:34)
[2020-02-24] VITALS (16 sets, daily range): BP systolic 125–140; BP diastolic 63–81; PULSE 83–105; RESP 16–20; TEMP 36.2–36.6; O2SAT 94–100
[2020-02-24] MEDS: oxyCODONE 5 MG Tablet PO ×5 (03:42→21:29)
[2020-02-24] MEDS: Benzonatate 100 MG Capsule PO ×3 (03:42→21:29)
[2020-02-24] MEDS: Menthol/Lanolin/Calamine/Znox 113 GM Tube 1 APPLIC TOPICAL ×3 (05:11→21:27)
[2020-02-24 05:57] LABS: Absolute Lymphocyte Count 0.93 X10^3/uL (0.83-4.51); Absolute Neutrophil Count 6.5 X10^3/uL (2.0-7.7); Basophil# 0.01 X10^3/uL; Basophil% 0.1 % (0-1); Eosinophil# 0.04 X10^3/uL; Eosinophils% 0.5 % (0-5); Hematocrit 26.3 % (37-47); Hemoglobin 8.4 g/dL (12.0-15.0); Lymphocyte # 0.93 X10^3/ul (4.0); Lymphocyte % 11.8 % (19-41); Mean Corp Hgb Conc 31.9 g/dL (32-36); Mean Corpuscular Hgb 29.8 pg (27.0-32.0); Mean Corpuscular Volume 93.3 fL (81-99); Monocyte# 0.32 X10^3/uL; Monocyte% 4.1 % (0-10); NRBC Flagged by Analyzer 0 % (0-5); Neutrophil # 6.48 X10^3/uL (2.7-7.7); Neutrophil % 82.6 % (47-70); Platelet Count 322 K/mm3 (150-450); RBC Distribution Width CV 14.8 % (11.6-14.6); RBC Distribution Width SD 50.2 fl (35.1-43.9); Red Blood Count 2.82 M/mm3 (4.2-5.4); White Blood Count 7.9 K/mm3 (4.4-11.0)
[2020-02-24] MEDS: Acetaminophen 325 MG Tablet 650 MG PO ×2 (06:33→21:29)
[2020-02-24 06:36] LABS: Anion Gap 4 (5-15); BUN 17 mg/dL (7-18); BUN/Creat Ratio 31.8 RATIO (10-20); Calcium,Total 7.7 mg/dL (8.5-10.1); Chloride 108 mmol/L (98-107); Creatinine, Serum 0.54 mg/dL (0.55-1.02); EST Glomerular Filtration Rate 122 mL/min (>60); Est Glom Filt Rate - Afr Amer 147 mL/min (>60); Estimated Creatinine Clearance 85.92 ml/min; Glucose 88 mg/dL (74-106); Potassium 4.2 mmol/L (3.5-5.1); Sodium Level 142 mmol/L (136-145)
[2020-02-24] MEDS: Ipratropium 0.5 MG/2.5 ML SOLUTION INHALATION ×5 (06:57→23:20)
--- NOTE | 2020-02-24 07:59 | PN_ITS ---
Patient Problems: Active and Suspected Problems (Last Updated 07/01/17 @ 12:07 by Lisa Ferreira) Cardiac arrest (Acute) Subjective: Patient seen and examined. She is feeling much better. She is down to 5 L of oxygen. Tachypnea has resolved as well as tachycardia. Review of systems otherwise negative. She has remained hemodynamically stable. Hemoglobin is 8.4. Vitals/I&O's: Vital Signs Temp Pulse Resp BP Pulse Ox 97.3 F L 94 18 140/71 H 100 02/24/20 03:40 02/24/20 06:44 02/24/20 03:40 02/24/20 03:40 02/24/20 03:40 Oxygen Flow Rate (L/min) 5 Oxygen Delivery Method Nasal Cannula Weight: 140 lb 6.951 oz Body Mass Index (BMI) 24.7 Finger Stick Blood Glucose 61 Intake and Output for Last 24 Hours 02/22/20 02/23/20 02/24/20 23:59 23:59 23:59 Intake Total 1400 / 1400 1140 / 1140 285.75 / 285.75 Output Total 3710 / 3710 1600 / 1600 Balance -2310 / -2310 -460 / -460 285.75 / 285.75 General: Alert, Oriented x3, Cooperative, No apparent distress HEENT: Atraumatic, PERRLA, EOMI, Normocephalic Oral: Dry Mucosa Neck: Supple, No JVD, Negative Carotid Bruits Lungs: - - diminished breath sounds bibasally, on 5L of oxygen by nasal canula Cardiovascular: Regular Rhythm, Normal S1, Normal S2, No murmurs Abdomen: Bowel Sounds Present, Soft, Non Tender Extremities: No clubbing, No cyanosis, No edema, Capillary Refill Less than 3 Seconds Skin: No rashes, No breakdown Musculoskeletal: No Tenderness to Palpation of Joints or Extremities Lymphatic: No Cervical, Supraclavicular, or Inguinal Adenopathy Neurological: Cranial nerves II-XII grossly intact, Neuro grossly intact, Motor Exam 5/5 strength throughout Psych/Mental Status: Normal Affect, Appropriate, Alert and oriented to time, place, person, mood and affect Microbiology Past 72 Hours 02/23/20 02:45 Stool Stool Occult Blood (MILDRED) - Final 02/20/20 09:15 Urine Catheter - Michaud Urine Culture - Final Culture exhibits no growth. 02/16/20 16:41 Blood Culture (Wb) - Anticubital Left Blood Culture - Final No growth in 5 days. 02/16/20 16:40 Blood Culture (Wb) - Right Hand Blood Culture - Final No growth in 5 days. 02/20/20 13:55 Blood Culture (Wb) - Right Hand Blood Culture - Preliminary No growth in 48 hours. 02/19/20 06:10 Sputum, Expectorated/Coughed Gram Stain - Final 02/19/20 06:10 Sputum, Expectorated/Coughed Respiratory Culture - Final Klebsiella pneumoniae sp pneum Laboratory Results 02/24/20 05:00: WBC 7.9, RBC 2.82 L, Hgb 8.4 L, Hct 26.3 L, MCV 93.3, MCH 29.8, MCHC 31.9 L, RDW Std Deviation 50.2 H, RDW Coeff of Nehemiah 14.8 H, Plt Count 322, MPV 11.0, Immature Gran % (Auto) 0.900, Neut % (Auto) 82.6 H, Lymph % (Auto) 11.8 L, [place] % (Auto) 4.1, Eos % (Auto) 0.5, Baso % (Auto) 0.1, Absolute Neuts (auto) 6.5, Absolute Lymphs (auto) 0.93, Nucleated RBC % 0 02/24/20 05:00: Sodium 142, Potassium 4.2, Chloride 108 H, Carbon Dioxide 30.0, Anion Gap 4 L, BUN 17, Creatinine 0.54 L, Estim Creat Clear Calc 85.92, Est GFR (MDRD) Af Amer 147, Est GFR (MDRD) Non-Af 122, BUN/Creatinine Ratio 31.8 H, Glucose 88, Calcium 7.7 L Current Medications Acetaminophen (Acetaminophen 325 Mg Tablet) 650 mg PO Q6H PRN PRN PRN Reason: Pain Score 1-10/Temp > 100.7 F Last Admin: 02/24/20 06:33 Dose: 650 mg Documented by: Al Hydroxide/Mg Hydroxide (Mag Hydrox/Al Hydrox/Simeth 30 Ml Udc) 30 ml PO Q6H PRN PRN PRN Reason: Gastric Burning Aspirin (Aspirin 81 Mg Tab.Chew) 81 mg PO DAILY [facility] Last Admin: 02/23/20 08:40 Dose: 81 mg Documented by: Atorvastatin Calcium (Atorvastatin Calcium 10 Mg Tablet) 10 mg PO QHS [facility]CLUDES [facility] Last Admin: 02/23/20 20:34 Dose: 10 mg Documented by: Benzonatate (Benzonatate 100 Mg Capsule) 100 mg PO TID PRN PRN PRN Reason: COUGH Last Admin: 02/24/20 03:42 Dose: 100 mg Documented by: Calamine/Phenol (Menthol/Lanolin/Calamine/Znox 113 Gm Tube) 1 applic TOPICAL TID COUNT [facility]CLUDES [facility]; Protocol Last Admin: 02/24/20 05:11 Dose: 1 applicatio Documented by: Diphenhydramine HCl (Diphenhydramine 25 Mg Capsule) 25 mg PO BID PRN PRN PRN Reason: ITCHING Last Admin: 02/20/20 08:33 Dose: 25 mg Documented by: Docusate Sodium (Docusate Sodium 100 Mg Capsule) 100 mg PO BID PRN PRN PRN Reason: Constipation Enoxaparin Sodium (Enoxaparin 40 Mg/0.4 Ml Syringe) 40 mg SC DAILY [facility]CLUDES [facility] Last Admin: 02/23/20 08:40 Dose: 40 mg Documented by: Hydrocortisone (Hydrocortisone 10 Mg Tablet) 20 mg PO DAILY COUNT INCLUDES [facility] Last Admin: 02/23/20 08:41 Dose: 20 mg Documented by: Hydrocortisone (Hydrocortisone 10 Mg Tablet) 10 mg PO QHS COUNT INCLUDES THE [facility] Last Admin: 02/23/20 20:34 Dose: 10 mg Documented by: Meropenem 1 gm/ Sodium (Chloride) 120 mls @ 33 mls/hr IV Q8 [facility] INCLUDES [facility] Last Admin: 02/24/20 05:11 Dose: 33 mls/hr Documented by: Sodium Chloride () 250 mls @ 15 mls/hr IV .[id number] PRN PRN Reason: SALINE FLUSH Last Infusion: 02/24/20 05:11 Dose: 0 mls/hr Documented by: Ipratropium [place] (Ipratropium 0.5 Mg/2.5 Ml Solution) 0.5 mg INHALATION Q4H.RT COUNT INCLUDES THE [facility] Last Admin: 02/24/20 06:57 Dose: 0.5 mg Documented by: Melatonin (Melatonin 3 Mg Tablet) 3 mg PO QHS PRN PRN PRN Reason: INSOMNIA Last Admin: 02/19/20 21:58 Dose: 3 mg Documented by: Metoprolol Succinate (Metoprolol(Xl)Succ 25 Mg Tablet) 25 mg PO DAILY [facility]CLUD[facility] Last Admin: 02/23/20 08:40 Dose: 25 mg Documented by: Ondansetron HCl (Ondansetron 4 Mg/2 Ml Vial) 4 mg IV Q8H PRN PRN PRN Reason: NAUSEA/VOMITING Last Admin: 02/19/20 07:58 Dose: 4 mg Documented by: Oxycodone HCl (Oxycodone 5 Mg Tablet) 5 mg PO Q4H PRN PRN PRN Reason: Pain Score 6-10 Last Admin: 02/24/20 03:42 Dose: 5 mg Documented by: Quetiapine Fumarate (Quetiapine 25 Mg Tablet) 25 mg PO QHS COUNT INCLUDES THE [facility] Last Admin: 02/23/20 20:34 Dose: 25 mg Documented by: Sodium Chloride (0.9% Saline Lock 10 Ml Syringe) 10 - 40 ml IV UD PRN PRN Reason: SALINE FLUSH Last Admin: 02/22/20 21:15 Dose: 10 ml Documented by: Ticagrelor (Ticagrelor 90 Mg Tablet) 90 mg PO BID COUNT INCLUDES THE [facility] Last Admin: 02/23/20 20:34 Dose: 90 mg Documented by: STROKE Vital Signs/Narrative: Vital Signs Pulse 02/24/20 06:44 94 Medical Necessity - Tobacco Use Smoking Status: Former smoker Assessment/Plan All Active Problems (Last Updated 07/01/17 @ 12:07 by Lisa Ferreira) STEMI (ST elevation myocardial infarction) (Ruled-out) Cardiac arrest (Acute) Torsades de pointes (Acute) Ventricular tachycardia (Acute) NSTEMI (non-ST elevated myocardial infarction) (Acute) Cardiogenic shock (Acute) # Acute hypoxic respiratory failure * Due to health associated pneumonia. * Has right upper lobe pneumonia due to gram-negative organisms with previous sputum cultures growing E. coli. * on IV vancomycin and meropenem * now down to 5L of oxygen. * Blood cultures; sputum culture growing Klebsiella pneumoniae * On breathing treatment with bronchodilators. * #Septic shock due to health associated pneumonia: * resolved. * now on hydrocortisone PO 20mg daily. * #Diarrhea: resolved #Acute on chronic heart failure with reduced ejection fraction: * EF is 40%. BNP was >1400 * ANGIE inhibitor and beta-nakul on hold on account of septic shock. * On IV lasix #Recent non-STEMI * On aspirin, statin and Brilinta. metoprolol resumed since septic shock has resolved. * #Hypokalemia: resolved # Anemia: * Hb today is 8.4 * Iron panel showed iron of 10 with iron saturation of 6.1 but elevated ferritin of 738 with TIBC of 164 which indicates anemia of chronic disease. * transfuse if Hb <7 * * #History of adrenal insufficiency: on oral hydrocortisone. #COPD: On breathing treatments with bronchodilators. DVT prophylaxis: lovenox 40mg daily Inpatient E&M: [id number] [facility] H[facility] L3
[2020-02-24] MEDS: Hydrocortisone 10 MG Tablet 20 MG PO (08:20)
[2020-02-24] MEDS: TICAGRELOR 90 MG TABLET PO ×2 (08:20→21:26)
[2020-02-24] MEDS: Aspirin 81 MG TAB.CHEW PO (08:20)
[2020-02-24] MEDS: Metoprolol(XL)Succ 25 MG Tablet PO (08:20)
--- NOTE | 2020-02-24 08:57 | PCM.PN.PUL ---
Patient Problems: Active and Suspected Problems (Last Updated 07/01/17 @ 12:07 by Lisa Ferreira) Cardiac arrest (Acute) Subjective: Patient did well overnight. No acute issues were reported. Patient overall feels subjectively improved compared to previous. No hypotension or desaturation was noted overnight. - Physical Exam Vitals/I&O's: Vital Signs Temp Pulse Resp BP Pulse Ox 36.6 C 92 17 136/63 H 99 02/24/20 08:17 02/24/20 08:20 02/24/20 08:17 02/24/20 08:20 02/24/20 08:17 Oxygen Flow Rate (L/min) 5 Oxygen Delivery Method Nasal Cannula Weight: 63.7 kg Body Mass Index (BMI) 24.7 Finger Stick Blood Glucose 61 Intake and Output for Last 24 Hours 02/22/20 02/23/20 02/24/20 23:59 23:59 23:59 Intake Total 1400 / 1400 1140 / 1140 405.75 / 405.75 Output Total 3710 / 3710 1600 / 1600 Balance -2310 / -2310 -460 / -460 405.75 / 405.75 General: Alert, Oriented x3, Cooperative, No apparent distress, - - No conversational dyspnea. HEENT: Atraumatic, PERRLA, EOMI, Normocephalic, - - Slight scleral injection without icterus Oral: Moist Mucosa, No Gingival or Mucosal Lesions/ Ulcerations Neck: Supple, No JVD, No Nodes, Trachea Midline Lungs: No rhonchi, No wheeze, No rales, Diminished Cardiovascular: Normal S1, Normal S2, No murmurs, No rub noted, No Gallop, Tachycardic Abdomen: Bowel Sounds Present, Soft, Non Tender, Non-Distended Extremities: No clubbing, No cyanosis, No edema, Capillary Refill Less than 3 Seconds Skin: No rashes, No breakdown Musculoskeletal: No Tenderness to Palpation of Joints or Extremities Lymphatic: No Cervical, Supraclavicular, or Inguinal Adenopathy Neurological: Cranial nerves II-XII grossly intact, Neuro grossly intact, Motor Exam 5/5 strength throughout Psych/Mental Status: Alert and oriented to time, place, person, mood and affect Microbiology Past 72 Hours 02/23/20 02:45 Stool Stool Occult Blood (MILDRED) - Final 02/20/20 09:15 Urine Catheter - Michaud Urine Culture - Final Culture exhibits no growth. 02/16/20 16:41 Blood Culture (Wb) - Anticubital Left Blood Culture - Final No growth in 5 days. 02/16/20 16:40 Blood Culture (Wb) - Right Hand Blood Culture - Final No growth in 5 days. 02/20/20 13:55 Blood Culture (Wb) - Right Hand Blood Culture - Preliminary No growth in 48 hours. 02/19/20 06:10 Sputum, Expectorated/Coughed Gram Stain - Final 02/19/20 06:10 Sputum, Expectorated/Coughed Respiratory Culture - Final Klebsiella pneumoniae sp pneum Laboratory Results 02/24/20 05:00: WBC 7.9, RBC 2.82 L, Hgb 8.4 L, Hct 26.3 L, MCV 93.3, MCH 29.8, MCHC 31.9 L, RDW Std Deviation 50.2 H, RDW Coeff of Nehemiah 14.8 H, Plt Count 322, MPV 11.0, Immature Gran % (Auto) 0.900, Neut % (Auto) 82.6 H, Lymph % (Auto) 11.8 L, Blaine % (Auto) 4.1, Eos % (Auto) 0.5, Baso % (Auto) 0.1, Absolute Neuts (auto) 6.5, Absolute Lymphs (auto) 0.93, Nucleated RBC % 0 02/24/20 05:00: Sodium 142, Potassium 4.2, Chloride 108 H, Carbon Dioxide 30.0, Anion Gap 4 L, BUN 17, Creatinine 0.54 L, Estim Creat Clear Calc 85.92, Est GFR (MDRD) Af Amer 147, Est GFR (MDRD) Non-Af 122, BUN/Creatinine Ratio 31.8 H, Glucose 88, Calcium 7.7 L Current Medications Acetaminophen (Acetaminophen 325 Mg Tablet) 650 mg PO Q6H PRN PRN PRN Reason: Pain Score 1-10/Temp > 100.7 F Last Admin: 02/24/20 06:33 Dose: 650 mg Documented by: Al Hydroxide/Mg Hydroxide (Mag Hydrox/Al Hydrox/Simeth 30 Ml Udc) 30 ml PO Q6H PRN PRN PRN Reason: Gastric Burning Aspirin (Aspirin 81 Mg Tab.Chew) 81 mg PO DAILY AN[facility]IO Last Admin: 02/24/20 08:20 Dose: 81 mg Documented by: Atorvastatin Calcium (Atorvastatin Calcium 10 Mg Tablet) 10 mg PO QHS [facility] Last Admin: 02/23/20 20:34 Dose: 10 mg Documented by: Benzonatate (Benzonatate 100 Mg Capsule) 100 mg PO TID PRN PRN PRN Reason: COUGH Last Admin: 02/24/20 03:42 Dose: 100 mg Documented by: Calamine/Phenol (Menthol/Lanolin/Calamine/Znox 113 Gm Tube) 1 applic TOPICAL TID [facility]; Protocol Last Admin: 02/24/20 05:11 Dose: 1 applicatio Documented by: Diphenhydramine HCl (Diphenhydramine 25 Mg Capsule) 25 mg PO BID PRN PRN PRN Reason: ITCHING Last Admin: 02/20/20 08:33 Dose: 25 mg Documented by: Docusate Sodium (Docusate Sodium 100 Mg Capsule) 100 mg PO BID PRN PRN PRN Reason: Constipation Enoxaparin Sodium (Enoxaparin 40 Mg/0.4 Ml Syringe) 40 mg SC DAILY [facility] Last Admin: 02/24/20 08:21 Dose: Not Given Documented by: Hydrocortisone (Hydrocortisone 10 Mg Tablet) 20 mg PO DAILY [facility] Last Admin: 02/24/20 08:20 Dose: 20 mg Documented by: Hydrocortisone (Hydrocortisone 10 Mg Tablet) 10 mg PO QHS [facility] Last Admin: 02/23/20 20:34 Dose: 10 mg Documented by: Meropenem 1 gm/ Sodium (Chloride) 120 mls @ 33 mls/hr IV Q8 [facility] Last Infusion: 02/24/20 08:55 Dose: Infused Documented by: Sodium Chloride () 250 mls @ 15 mls/hr IV .[id number] PRN PRN Reason: SALINE FLUSH Last Infusion: 02/24/20 08:55 Dose: 15 mls/hr Documented by: Ipratropium [place] (Ipratropium 0.5 Mg/2.5 Ml Solution) 0.5 mg INHALATION Q4H.RT [facility] Last Admin: 02/24/20 06:57 Dose: 0.5 mg Documented by: Melatonin (Melatonin 3 Mg Tablet) 3 mg PO QHS PRN PRN PRN Reason: INSOMNIA Last Admin: 02/19/20 21:58 Dose: 3 mg Documented by: Metoprolol Succinate (Metoprolol(Xl)Succ 25 Mg Tablet) 25 mg PO DAILY [facility] Last Admin: 02/24/20 08:20 Dose: 25 mg Documented by: Ondansetron HCl (Ondansetron 4 Mg/2 Ml Vial) 4 mg IV Q8H PRN PRN PRN Reason: NAUSEA/VOMITING Last Admin: 02/19/20 07:58 Dose: 4 mg Documented by: Oxycodone HCl (Oxycodone 5 Mg Tablet) 5 mg PO Q4H PRN PRN PRN Reason: Pain Score 6-10 Last Admin: 02/24/20 08:28 Dose: 5 mg Documented by: Quetiapine Fumarate (Quetiapine 25 Mg Tablet) 25 mg PO QHS [facility] Last Admin: 02/23/20 20:34 Dose: 25 mg Documented by: Sodium Chloride (0.9% Saline Lock 10 Ml Syringe) 10 - 40 ml IV UD PRN PRN Reason: SALINE FLUSH Last Admin: 02/22/20 21:15 Dose: 10 ml Documented by: Ticagrelor (Ticagrelor 90 Mg Tablet) 90 mg PO BID [facility] Last Admin: 02/24/20 08:20 Dose: 90 mg Documented by: Medical Necessity - Tobacco Use Smoking Status: Former smoker Assessment/Plan All Active Problems (Last Updated 07/01/17 @ 12:07 by Lisa Ferreira) STEMI (ST elevation myocardial infarction) (Ruled-out) Cardiac arrest (Acute) Torsades de pointes (Acute) Ventricular tachycardia (Acute) NSTEMI (non-ST elevated myocardial infarction) (Acute) Cardiogenic shock (Acute) RECOMMENDATIONS: 1. Consider additional dose of Lasix if oxygenation does not improve during the day 2. Continue bronchodilators. 3. Continue baseline hydrocortisone unless patient becomes hypotensive 4. Wean FiO2 to maintain oxygen saturations at or above 90%. 5. Encourage incentive spirometer use and mobilize patient as tolerated. 6. Anticipate walking oximetry tomorrow IMPRESSIONS: 1. Acute on chronic hypoxemic respiratory failure secondary to acute on chronic CHF/Klebsiella pneumonia The patient was just discharged from the hospital on February 14 after having been admitted with respiratory failure as a consequence of acute cardiac arrest, necessitating revascularization. The patient was also noted to have an aspiration pneumonia during that hospitalization, which was being treated with antimicrobials. She does have an apparent history of COPD of unknown severity along with a baseline 2 L/min oxygen requirement. Patient growing only 1+ Klebsiella in the sputum, but was pretreated with antibiotics. This likely indicates this is a true infection and antibiotic should be continued. Defer antibiotics to infectious disease. Potassium much improved. If oxygenation continues to require 5 L after patient is mobile in the room, could consider a dose of Lasix later today. Defer to hospitalist. 2. History of COPD of unknown severity/history of tobacco dependency Continue scheduled bronchodilator therapy. Wean supplemental oxygen as tolerated. The patient would likely benefit from formal work-up in the pulmonary medicine clinic following discharge. 3. History of coronary artery disease status post CABG Continue current medical management per cardiology recommendations. Patient with sinus tachycardia with PACs on EKG this morning. Patient tolerating beta-nakul well. 4. History of adrenal insufficiency The patient does have a history of adrenal insufficiency and is on baseline hydrocortisone therapy in her home environment. On baseline hydrocortisone. May transition back to IV stress dose steroids only if blood pressure falls. 5. Hypertension/hyperlipidemia/anxiety/costochondritis from CPR Complicates care, management, recovery and prognosis. Continue home medications as indicated. Inpatient E&M: 12496 Subs Hosp L2
[2020-02-24] MEDS: Albuterol 2.5 MG/3 ML VIAL.NEB. INHALATION (10:47)
[2020-02-24] MEDS: 0.9% NaCl IVPB Med Flush (250 mL) 15 ML IV (16:56)
[2020-02-24] MEDS: Hydrocortisone 10 MG Tablet PO (21:27)
[2020-02-24] MEDS: Atorvastatin Calcium 10 MG Tablet PO (21:27)
[2020-02-24] MEDS: MELATONIN 3 MG TABLET PO (21:29)
[2020-02-25] VITALS (9 sets, daily range): BP systolic 124–136; BP diastolic 65–78; PULSE 71–92; RESP 16–20; TEMP 36.1–37; O2SAT 95–97
[2020-02-25] MEDS: oxyCODONE 5 MG Tablet PO ×3 (01:29→13:52)
[2020-02-25] MEDS: Ipratropium 0.5 MG/2.5 ML SOLUTION INHALATION ×3 (03:32→10:41)
[2020-02-25] MEDS: Benzonatate 100 MG Capsule PO (05:37)
[2020-02-25] MEDS: Menthol/Lanolin/Calamine/Znox 113 GM Tube 1 APPLIC TOPICAL (05:40)
[2020-02-25] MEDS: 0.9% Saline Lock 10 ML Syringe IV (05:42)
[2020-02-25 05:53] LABS: Absolute Lymphocyte Count 1.54 X10^3/uL (0.83-4.51); Absolute Neutrophil Count 7.6 X10^3/uL (2.0-7.7); Basophil# 0.04 X10^3/uL; Basophil% 0.4 % (0-1); Eosinophil# 0.08 X10^3/uL; Eosinophils% 0.8 % (0-5); Hematocrit 26.3 % (37-47); Hemoglobin 8.2 g/dL (12.0-15.0); Lymphocyte # 1.54 X10^3/ul (4.0); Lymphocyte % 15.5 % (19-41); Mean Corp Hgb Conc 31.2 g/dL (32-36); Mean Corpuscular Hgb 29.8 pg (27.0-32.0); Mean Corpuscular Volume 95.6 fL (81-99); Mean Platelet Vol. 10.3 fl (6.2-12.0); Monocyte# 0.56 X10^3/uL; Monocyte% 5.6 % (0-10); NRBC Flagged by Analyzer 0 % (0-5); Neutrophil # 7.57 X10^3/uL (2.7-7.7); POSITIVE MORPHOLOGY YES; Platelet Count 348 K/mm3 (150-450); RBC Distribution Width CV 15.1 % (11.6-14.6); RBC Distribution Width SD 52.8 fl (35.1-43.9); Red Blood Count 2.75 M/mm3 (4.2-5.4)
[2020-02-25 06:12] LABS: Anion Gap 4 (5-15); BUN 17 mg/dL (7-18); BUN/Creat Ratio 36.8 RATIO (10-20); Calcium,Total 7.9 mg/dL (8.5-10.1); Chloride 106 mmol/L (98-107); Creatinine, Serum 0.46 mg/dL (0.55-1.02); EST Glomerular Filtration Rate 144 mL/min (>60); Est Glom Filt Rate - Afr Amer 174 mL/min (>60); Estimated Creatinine Clearance 100.86 ml/min; Glucose 98 mg/dL (74-106); Potassium 3.9 mmol/L (3.5-5.1); Sodium Level 141 mmol/L (136-145)
[2020-02-25 06:14] LABS: Differential Indicated SCAN CRITERIA MET
[2020-02-25] MEDS: Hydrocortisone 10 MG Tablet 20 MG PO (08:14)
[2020-02-25] MEDS: TICAGRELOR 90 MG TABLET PO (08:14)
[2020-02-25] MEDS: Metoprolol(XL)Succ 25 MG Tablet PO (08:14)
[2020-02-25] MEDS: Aspirin 81 MG TAB.CHEW PO (08:14)
--- NOTE | 2020-02-25 10:11 | PCM.TXEXTCAR ---
- Diet 02/16/20 21:38 Diet: Cardiac - Heart Healthy Food consistency:: Regular Liquid Consistency:: Regular/Thin Diet Comments: 120mL ensure w/ B&D; Magic Cup w/ L - Routine Orders/Code Status O2 Frequency: Continuous Keep PO Greater than or Equal to (%): 90 Code Status: Full Code - Wound(s) cleft Wound Type: shearing - Therapies Physical Therapy: Eval and Treat Occupational Therapy: Eval and Treat - Allergies/Procedures Done in Hospital Allergies/Adverse Reactions: Allergies atorvastatin Adverse Reaction (Severe, Verified 02/16/20 16:30) Myalgias hydrocodone Adverse Reaction (Verified 02/16/20 16:30) Itching hydrocodone bitartrate [From Vicodin] Adverse Reaction (Verified 02/16/20 16:30) Itching oxycodone HCl [From Percocet] Adverse Reaction (Verified 02/16/20 16:30) Itching - Type of Care/Length of Stay Estimated LOS: Convalescent Care Less Than 30 days Type of Care Needed: Skilled Rehab Potential: Good Prognosis: Good - Additional Orders/Day of Discharge Day of Discharge: 02/25/20 - Dietary and Speech Recommendations Dietitian Recommendations/Changes: Continue cardiac diet as tolerated. Will continue ONS w/ meals for additional calories/protein if consumed. - Follow Up Care Primary Care Physician: Harvey Chow MD [Primary Care Provider] - Please Follow Up With: Lisa Irizarry, PA When: Tuesday
--- NOTE | 2020-02-25 10:13 | PCM.DC.SUM ---
Discharge Date and Diagnosis - Problem List Patient Problems: Active and Suspected Problems (Last Updated 07/01/17 @ 12:07 by Lisa Ferreira) Cardiac arrest (Acute) Date of Admission: 02/16/20 Date of Discharge: 02/25/20 - Primary Discharge Diagnosis Acute Problems: Active Problems (Last Updated 07/01/17 @ 12:07 by Lisa Ferreira) Cardiac arrest (Acute) - Secondary Discharge Diagnosis Chronic Problems: Chronic Problems (Last Updated 07/01/17 @ 12:07 by Lisa Ferreira) Chronic obstructive pulmonary disease (COPD) (Chronic) Tobacco use (Chronic) Presence of stent in coronary artery (Chronic) Stent assisted PTCA of prox LAD and cutting balloon 11/06/02; PTCA/Stent of the CX 09/18/13 Aortocoronary bypass status (Chronic ~09/24/13) CABG x 3- KENNY to LAD, SVG to OM, SVG to distal right 09/24/13 Peripheral vascular insufficiency (Chronic) History of myocardial infarction (Chronic) Atherosclerotic heart disease of tang[place]q coronary artery without angina pectoris (Chronic) CABG x 3- KENNY to LAD, SVG to OM, SVG to distal right 09/24/13; Stent assisted PTCA of prox LAD and cutting balloon 11/06/02; PTCA/Stent of the CX 09/18/13 S/P PTCA (percutaneous transluminal coronary angioplasty) (Chronic) Stent assisted PTCA of prox LAD and cutting balloon 11/06/02; PTCA/Stent of the CX 09/18/13 Hyperlipidemia (Chronic) Hypertension (Chronic) Squamous cell carcinoma of left lung (Chronic) Hospital Course and Treatment Imaging Results: Clinical Impression(s) from Imaging Studies Chest X-Ray 02/16/20 17:20 IMPRESSION: Worsening right upper lobe pneumonia. Electronically Signed: Brandon Hernandez MD ([place]) at 17:53 EST , Service support , Chest CTA 02/17/20 06:41 IMPRESSION: Wedge-shaped consolidation in the right mid lateral lung field extending from the right perihilar region to the pleural surface with air bronchograms suspicious for infiltrative pneumonia Subtle airspace opacifications in both upper lung gao suggests the possibility of superimposed Covid pneumonia. Concerning subcarinal lymphadenopathy extending to the right perihilar region surrounding the right mainstem bronchus and slightly narrowing is concerning for metastasis Right pleural effusion with associated atelectasis No demonstrated noncalcified mass or nodule Degenerative bony changes Remote CABG Electronically Signed: Raji Valdez MD at 11:09 EST , Service support , Chest X-Ray 02/18/20 21:00 IMPRESSION: Worsening bilateral infiltrates. Electronically Signed: Boo Esparza DO at 22:51 EST Tel [phone], Service support , Operations: None Summary of Care Provided: Patient is a 64-year-old recently discharged from the hospital following admission for cardiopulmonary arrest as a result of acute myocardial infarction (acute non-STEMI) for which she underwent angioplasty presented to the emergency department with fever. Imaging studies obtained on admission demonstrated Worsening right upper lobe pneumonia. Admitted to monitored bed for subsequent management 1. Acute hypoxic respiratory failure aspiration pneumonia with gram-negative organisms (E. coli and Klebsiella pneumonia) ?Secondary to right upper lobe pneumonia with gram-negative organisms (previous sputum cultures had grown E. coli and patient was discharged on Augmentin based on sensitivity) repeat sputum cultures obtained during patient hospital admission was positive for Klebsiella. Patient was managed with meropenem discharged on Levaquin 2. Septic shock secondary to above Resuscitated with IV fluid started on Levophed in addition to broad-spectrum antibiotic therapy 3; diarrhea ?Suspected to be secondary to antibiotic induced diarrhea patient was kept in enteric isolation whilst to for C. difficile sent to rule out C. difficile colitis 4. Recent admission for acute non-STEMI ?Patient presented with cardiopulmonary arrest underwent successful left heart catheterization with PCI to SVG to OM patient has elevated troponin residual from recent admission 5. Coronary artery disease ?With previous CABG 6. Chronic congestive heart failure with reduced ejection fraction EF estimated to be 40%. Patient was discharged on beta-blockers and ANGIE inhibitors; ANGIE inhibitors and beta-blockers held in view of patient low blood pressure 7. COPD ?Aerosol treatments as needed 7. Adrenal insufficiency ?On steroids at home started on stress dose steroids?hydrocortisone 50 mg every 8 hours 8. DVT prophylaxis ?Lovenox 9. Physical deconditioning - Requested for PT OT eval and social group worker to assist with discharge planning Patient Problems: Active and Suspected Problems (Last Updated 07/01/17 @ 12:07 by Lisa Ferreira) Cardiac arrest (Acute) Objective: GENERAL: cooperative HEENT: Atraumatic; EYES; Anicteric, Normal Conjunctiva NECK; supple, normal thyroid, RESPIRATORY: Diminished to auscultation CARDIOVASCULAR: Regular S1 S2, GI: soft, normoactive bowel sounds, : No Renal angle tenderness; EXTREMITIES: No edema, no clubbing, MUSCULOSKELETAL: no muscle waisting NEURO: Awake; no lateralizing signs. SKIN: No Rash PSYCH; Flat affect - Physical Exam Vitals/I&O's: Vital Signs Temp Pulse Resp BP Pulse Ox 97.0 F L 89 16 128/73 H 95 02/25/20 05:50 02/25/20 08:14 02/25/20 06:54 02/25/20 05:50 02/25/20 06:54 Oxygen Flow Rate (L/min) 4 Oxygen Delivery Method Nasal Cannula Weight: 63.7 kg Body Mass Index (BMI) 24.7 Finger Stick Blood Glucose 61 Intake and Output for Last 24 Hours 02/23/20 02/24/20 02/25/20 23:59 23:59 23:59 Intake Total 1140 / 1140 1680.00 / 1680.00 449.25 / 449.25 Output Total 1600 / 1600 Balance -460 / -460 1680.00 / 1680.00 449.25 / 449.25 Microbiology Past 72 Hours 02/23/20 02:45 Stool Stool Occult Blood (MILDRED) - Final 02/20/20 09:15 Urine Catheter - Michaud Urine Culture - Final Culture exhibits no growth. 02/16/20 16:41 Blood Culture (Wb) - Anticubital Left Blood Culture - Final No growth in 5 days. 02/16/20 16:40 Blood Culture (Wb) - Right Hand Blood Culture - Final No growth in 5 days. 02/20/20 13:55 Blood Culture (Wb) - Right Hand Blood Culture - Preliminary No growth in 48 hours. Laboratory Results 02/25/20 05:45: WBC 10.0, RBC 2.75 L, Hgb 8.2 L, Hct 26.3 L, MCV 95.6, MCH 29.8, MCHC 31.2 L, RDW Std Deviation 52.8 H, RDW Coeff of Nehemiah 15.1 H, Plt Count 348, MPV 10.3, Immature Gran % (Auto) 1.700 H, Neut % (Auto) 76.0 H, Lymph % (Auto) 15.5 L, Moore % (Auto) 5.6, Eos % (Auto) 0.8, Baso % (Auto) 0.4, Absolute Neuts (auto) 7.6, Absolute Lymphs (auto) 1.54, Nucleated RBC % 0 02/25/20 05:45: Sodium 141, Potassium 3.9, Chloride 106, Carbon Dioxide 31.0, Anion Gap 4 L, BUN 17, Creatinine 0.46 L, Estim Creat Clear Calc 100.86, Est GFR (MDRD) Af Amer 174, Est GFR (MDRD) Non-Af 144, BUN/Creatinine Ratio 36.8 H, Glucose 98, Calcium 7.9 L Current Medications Acetaminophen (Acetaminophen 325 Mg Tablet) 650 mg PO Q6H PRN PRN PRN Reason: Pain Score 1-10/Temp > 100.7 F Last Admin: 02/24/20 21:29 Dose: 650 mg Documented by: Al Hydroxide/Mg Hydroxide (Mag Hydrox/Al Hydrox/Simeth 30 Ml Udc) 30 ml PO Q6H PRN PRN PRN Reason: Gastric Burning Aspirin (Aspirin 81 Mg Tab.Chew) 81 mg PO DAILY [facility] Last Admin: 02/25/20 08:14 Dose: 81 mg Documented by: Atorvastatin Calcium (Atorvastatin Calcium 10 Mg Tablet) 10 mg PO QHS [facility] Last Admin: 02/24/20 21:27 Dose: 10 mg Documented by: Benzonatate (Benzonatate 100 Mg Capsule) 100 mg PO TID PRN PRN PRN Reason: COUGH Last Admin: 02/25/20 05:37 Dose: 100 mg Documented by: Calamine/Phenol (Menthol/Lanolin/Calamine/Znox 113 Gm Tube) 1 applic TOPICAL TID [facility]; Protocol Last Admin: 02/25/20 05:40 Dose: 1 applicatio Documented by: Diphenhydramine HCl (Diphenhydramine 25 Mg Capsule) 25 mg PO BID PRN PRN PRN Reason: ITCHING Last Admin: 02/20/20 08:33 Dose: 25 mg Documented by: Docusate Sodium (Docusate Sodium 100 Mg Capsule) 100 mg PO BID PRN PRN PRN Reason: Constipation Enoxaparin Sodium (Enoxaparin 40 Mg/0.4 Ml Syringe) 40 mg SC DAILY [facility] Last Admin: 02/25/20 08:14 Dose: Not Given Documented by: Hydrocortisone (Hydrocortisone 10 Mg Tablet) 20 mg PO DAILY [facility] Last Admin: 02/25/20 08:14 Dose: 20 mg Documented by: Hydrocortisone (Hydrocortisone 10 Mg Tablet) 10 mg PO QHS [facility] Last Admin: 02/24/20 21:27 Dose: 10 mg Documented by: Meropenem 1 gm/ Sodium (Chloride) 120 mls @ 33 mls/hr IV Q8 [facility] Last Admin: 02/25/20 05:37 Dose: 33 mls/hr Documented by: Sodium Chloride () 250 mls @ 15 mls/hr IV .[id number] PRN PRN Reason: SALINE FLUSH Last Infusion: 02/25/20 01:33 Dose: 0 mls/hr Documented by: Ipratropium [place] (Ipratropium 0.5 Mg/2.5 Ml Solution) 0.5 mg INHALATION Q4H.RT [facility] Last Admin: 02/25/20 06:54 Dose: 0.5 mg Documented by: Melatonin (Melatonin 3 Mg Tablet) 3 mg PO QHS PRN PRN PRN Reason: INSOMNIA Last Admin: 02/24/20 21:29 Dose: 3 mg Documented by: Metoprolol Succinate (Metoprolol(Xl)Succ 25 Mg Tablet) 25 mg PO DAILY [facility] Last Admin: 02/25/20 08:14 Dose: 25 mg Documented by: Ondansetron HCl (Ondansetron 4 Mg/2 Ml Vial) 4 mg IV Q8H PRN PRN PRN Reason: NAUSEA/VOMITING Last Admin: 02/19/20 07:58 Dose: 4 mg Documented by: Oxycodone HCl (Oxycodone 5 Mg Tablet) 5 mg PO Q4H PRN PRN PRN Reason: Pain Score 6-10 Last Admin: 02/25/20 05:36 Dose: 5 mg Documented by: Quetiapine Fumarate (Quetiapine 25 Mg Tablet) 25 mg PO QHS [facility] Last Admin: 02/24/20 21:28 Dose: Not Given Documented by: Sodium Chloride (0.9% Saline Lock 10 Ml Syringe) 10 - 40 ml IV UD PRN PRN Reason: SALINE FLUSH Last Admin: 02/25/20 05:42 Dose: 20 ml Documented by: Ticagrelor (Ticagrelor 90 Mg Tablet) 90 mg PO BID [facility] Last Admin: 02/25/20 08:14 Dose: 90 mg Documented by: Discharge Diet: Low fat/ Low Cholesterol Discharge Activity: Return to Normal Activity Home Medications: Medications to take at Discharge Aspirin [Aspirin, Baby] 81 mg PO DAILY 02/17/13 Hydrocortisone [Cortef] 10 mg PO QHS 02/11/20 Hydrocortisone [Cortef] 20 mg PO DAILY 02/11/20 Acetaminophen [Tylenol Tablet] 650 mg PO Q4H PRN PRN tab 02/15/20 Atorvastatin Calcium [Lipitor] 10 mg PO QHS 02/16/20 Furosemide [Lasix] 40 mg PO DAILY 02/16/20 Lisinopril [Zestril] 5 mg PO DAILY 02/16/20 Metoprolol(XL)Succ [Toprol Xl (Beta Herminia)] 25 mg PO DAILY 02/16/20 Potassium Chloride [K-Dur] 20 meq PO BIDCM 02/16/20 Ticagrelor [Brilinta] 90 mg PO BID 02/16/20 Acetaminophen [Tylenol Tablet] 650 mg PO Q6H PRN PRN tablet 02/25/20 Benzonatate [Tessalon Perle] 100 mg PO TID PRN PRN capsule 02/25/20 DiphenhydrAMINE [Benadryl] 25 mg PO BID PRN PRN capsule 02/25/20 Docusate Sodium [Colace] 100 mg PO BID PRN PRN capsule 02/25/20 Enoxaparin [Lovenox] 40 mg SC DAILY syringe 02/25/20 Levofloxacin [Levaquin] 750 mg PO DAILY #5 tab 02/25/20 Oxycodone [Oxyir] 5 mg PO Q4H PRN PRN 1 Days #3 tab 02/25/20 Quetiapine Fumarate [Seroquel] 25 mg PO QHS tablet 02/25/20 Following Prescriptions Were Given to Patient: Levofloxacin [Levaquin] 750 mg PO DAILY #5 tab Prescription Printed Oxycodone [Oxyir] 5 mg PO Q4H PRN PRN 1 Days #3 tab PRN Reason: Pain Score 6-10 Prescription Printed Primary Care Physician: Harvey Chow MD [Primary Care Provider] - Please Follow Up With: Lisa Irizarry PA, PA When: Tuesday Disposition: [facility] facility Minutes spent on discharge:: 45 Patient Condition:: Stable Medical Necessity - Tobacco Use Smoking Status: Former smoker Meaningful Use Info Meaningful Use Diagnoses (Choose all that apply): None applicable Inpatient E&M: 50726 Disch Hosp
--- NOTE | 2020-02-25 10:19 | CASEMGMT ---
Patient is ready for discharge to TCU today. SW spoke with patient and she already contacted family to notify them of her d/c to TCU. Patient will be discharged to [facility] under skilled level of care. Plan: d/c to [facility]. Jennifer OSBORNE
--- NOTE | 2020-02-25 10:33 | PHA.DC.MR ---
Pharmacy Service has performed discharge medication reconciliation for this patient. The patient's discharge medication list was reviewed for discrepancies and discrepancies were resolved. Home Medications Aspirin [Aspirin, Baby] 81 mg PO DAILY 02/17/13 Hydrocortisone [Cortef] 10 mg PO QHS 02/11/20 Hydrocortisone [Cortef] 20 mg PO DAILY 02/11/20 Atorvastatin Calcium [Lipitor] 10 mg PO QHS 02/16/20 Furosemide [Lasix] 40 mg PO DAILY 02/16/20 Lisinopril [Zestril] 5 mg PO DAILY 02/16/20 Metoprolol(XL)Succ [Toprol Xl (Beta Herminia)] 25 mg PO DAILY 02/16/20 Potassium Chloride [K-Dur] 20 meq PO BIDCM 02/16/20 Ticagrelor [Brilinta] 90 mg PO BID 02/16/20 Acetaminophen [Tylenol Tablet] 650 mg PO Q6H PRN PRN tab 02/25/20 Benzonatate [Tessalon Perle] 100 mg PO TID PRN PRN cap 02/25/20 DiphenhydrAMINE [Benadryl] 25 mg PO BID PRN PRN cap 02/25/20 Docusate Sodium [Colace] 100 mg PO BID PRN PRN cap 02/25/20 Enoxaparin [Lovenox] 40 mg SC DAILY syringe 02/25/20 Levofloxacin [Levaquin] 750 mg PO DAILY #5 tab 02/25/20 Oxycodone [Oxyir] 5 mg PO Q4H PRN PRN 1 Days #3 tab 02/25/20 Quetiapine Fumarate [Seroquel] 25 mg PO QHS tab 02/25/20
--- NOTE | 2020-02-25 13:43 | NURSING ---
This RN called report to TCU, spoke with nurse pradhan
== END 2020-02-25 14:08 | disposition skilled nursing facility (03) | DRG 871 ==
LOC: ED 17:35 → ICU 18:44 → PCU 02-23 15:49
PROVIDERS: Internal Medicine; Internal Medicine Critical Care Medicine; Student in an Organized Health Care Education/Training Program; Admitting Provider Internal Medicine; Emergency Provider Emergency Medicine; PCP Family Medicine; Referring Provider Internal Medicine; Visit Provider Internal Medicine
DX: A41.9 Sepsis, unspecified organism (principal); I21.4 Non-ST elevation (NSTEMI) myocardial infarction; I50.23 Acute on chronic systolic (congestive) heart failure; J96.21 Acute and chronic respiratory failure with hypoxia; J69.0 Pneumonitis due to inhalation of food and vomit; R65.21 Severe sepsis with septic shock; J15.6 Pneumonia due to other Gram-negative bacteria; E87.1 Hypo-osmolality and hyponatremia; I47.2 Ventricular tachycardia; E27.40 Unspecified adrenocortical insufficiency; J44.0 Chronic obstructive pulmonary disease with (acute) lower respiratory infection; N17.9 Acute kidney failure, unspecified; K52.1 Toxic gastroenteritis and colitis; Z86.74 Personal history of sudden cardiac arrest; I11.0 Hypertensive heart disease with heart failure; E78.5 Hyperlipidemia, unspecified; E87.6 Hypokalemia; M94.0 Chondrocostal junction syndrome [Tietze]; F41.9 Anxiety disorder, unspecified; I25.10 Atherosclerotic heart disease of native coronary artery without angina pectoris; I25.2 Old myocardial infarction; Z85.118 Personal history of other malignant neoplasm of bronchus and lung; Z95.1 Presence of aortocoronary bypass graft; B96.1 Klebsiella pneumoniae [K. pneumoniae] as the cause of diseases classified elsewhere; Y95 Nosocomial condition; D63.8 Anemia in other chronic diseases classified elsewhere; Z87.19 Personal history of other diseases of the digestive system; I73.9 Peripheral vascular disease, unspecified; Z79.82 Long term (current) use of aspirin; Z79.899 Other long term (current) drug therapy; T36.95XA Adverse effect of unspecified systemic antibiotic, initial encounter; Y92.9 Unspecified place or not applicable; Z87.891 Personal history of nicotine dependence
CPT/HCPCS: 36569; 36600; 51702; 71045; 71275; 80048; 80053; 80202; 81001; 82274; 82728; 82803; 82962; 83540; 83550; 83605; 83735; 83880; 84100; 84484; 85025; 85610; 85730; 87040; 87070; 87077; 87086; 87186; 87205; 87426; 87449; 87493; 87506; 87641; 92610; 93005; 94002; 94003; 94640; 94660; 94667; 94668; 97110; 97116; 97162; 97166; 97530; 97535; 97802; 99251; 99285; 99406; J2185; J7030; J7040; J7050; Q9967; A4216; G0463; J1940; J2405

== ENCOUNTER 2020-02-25 14:08 | Inpatient (IN) | payer MEDICARE, MEDICAID, SELFPAY ==
[2020-02-16 21:38] VITALS: BMI 24.7
[2020-02-25 14:28] VITALS: BP 138/76; PULSE 92; RESP 22; O2SAT 96
[2020-02-25 14:46] VITALS: BMI 23.0
[2020-02-25 14:47] VITALS: BMI 23.0
[2020-02-25] MEDS: TICAGRELOR 90 MG TABLET PO (17:05)
[2020-02-25] MEDS: levoFLOXacin 750 MG Tablet PO (17:05)
--- NOTE | 2020-02-25 17:22 | CASEMGMT ---
Social Work Pt arrived on unit and immediately asked to speak with SW. Met with pt. Pt expressed she felt very mislead on where she was going and arriving to find out this is a SNF, she got upset and does not want to remain. She states she has everything she needs at home and can call Dr. Chow tomorrow to get scripts for her Levaquin or anything else she needs. She has four people coming to her house to take care of her dogs so she will have help. She felt she did not get it communicated to her well where she was going. Provided supportive listening and emphasized with her frustration. Explained she has the right to leave. Explained the goal of this unit. Encouraged her to remain to see what she may need assist with and get stronger. Pt declined. Offered to set up HHC - she declined, that she knows what therapy will tell her to do. Explained she can have PCP order that if that changes. Pt adamant about discharging. Compromised for pt to wait to see Dr. Loredo before she leaves - pt agreed but will have ride ready to transport her. Nursing notified. Greta Duque, [facility]
--- NOTE | 2020-02-25 18:23 | NURSING ---
pt signed AMA form. Dr Loredo in spoke with her and pt still wanting to go home against medical advice. pt wheeled to main entrance via WC to meet significant other at the door with personal belongings. pt left without oxygen, pt states she doesnt need it for ride home, has tank at home for chronic use.
--- NOTE | 2020-02-25 20:46 | HP.PCM_ITS ---
Problem List (1) Debility Status: Acute (2) Healthcare associated bacterial pneumonia Status: Acute (3) Acute respiratory failure Status: Acute (4) Aspiration pneumonia Status: Acute (5) Septic shock Status: Acute (6) Anxiety Status: Chronic (7) Adrenal insufficiency Status: Chronic (8) Coronary artery disease Status: Chronic (9) Hypokalemia Status: Chronic (10) STEMI (ST elevation myocardial infarction) Status: Acute Qualifiers: (11) Cardiac arrest Status: Acute (12) Chronic obstructive pulmonary disease (COPD) Status: Chronic Qualifiers: (13) Hyperlipidemia Status: Chronic Qualifiers: (14) Hypertension Status: Chronic History of Present Illness Date of Admission: 02/25/20 Chief Complaint: Here for rehabilitation, strengthening, prior to discharge home with significant other. 02/16/2020 The patient is a 64 year old Female with below past medical history presented to [facility] Emergency Department with severe shortness of breath. 02/16/2020 EKG sinus tachycardia, nonspecific ST abnormality. 02/16/2020 Chest X-ray showed right upper lobe pneumonia. Recent NV, cardiac arrest, resuscitated. Diarrhea. Vancomycin, Zosyn, IV fluids given for sepsis secondary to pneumonia. 02/16/2020 Admit to Hospital. BiPAP, oxygen for acute respiratory failure. Vancomycin, Zosyn for Healthcare associated pneumonia, COVID NEGATIVE. IV Fluids for hypotension. Stress dose steroids for adrenal insufficiency. 02/17/2020 CTA chest showed right lung pneumonia, ? COVID pneumonia, concerning lymphadenopathy. Right pleural effusion with atelectasis. 02/18/2020 Chest X-ray showed worsening bilateral infiltrates. Gram negative aspiration pneumonia. E. Coli pneumonia treated with Augmentin. Klebsiella pneumonia treated with Meropenem, transitioned to Levaquin. Septic shock responded to IV fluids, Levophed. Diarrhea secondary to antibiotics, C. Diff ruled out. Elevated Troponin residual from recent NV. Chronic systolic congestive heart failure EF 40% treated with beta herminia, ACEI. [facility] 02/25/2020 Admit to TCU with debility, here for rehabilitation, strengthening, prior to discharge home with significant other. Past Medical History Past Medical History (Chronic Problems): Chronic Problems (Last Updated 07/01/17 @ 12:07 by Lisa Ferreira) Anxiety (Chronic) Adrenal insufficiency (Chronic) Coronary artery disease (Chronic) Hypokalemia (Chronic) Chronic obstructive pulmonary disease (COPD) (Chronic) Tobacco use (Chronic) Presence of stent in coronary artery (Chronic) Stent assisted PTCA of prox LAD and cutting balloon 11/06/02; PTCA/Stent of the CX 09/18/13 Aortocoronary bypass status (Chronic ~09/24/13) CABG x 3- KENNY to LAD, SVG to OM, SVG to distal right 09/24/13 Peripheral vascular insufficiency (Chronic) History of myocardial infarction (Chronic) Atherosclerotic heart disease of [place] coronary artery without angina pectoris (Chronic) CABG x 3- KENNY to LAD, SVG to OM, SVG to distal right 09/24/13; Stent assisted PTCA of prox LAD and cutting balloon 11/06/02; PTCA/Stent of the CX 09/18/13 S/P PTCA (percutaneous transluminal coronary angioplasty) (Chronic) Stent assisted PTCA of prox LAD and cutting balloon 11/06/02; PTCA/Stent of the CX 09/18/13 Hyperlipidemia (Chronic) Hypertension (Chronic) Squamous cell carcinoma of left lung (Chronic) Medical History: Medical History (Last Updated 07/01/17 @ 12:07 by Lisa Ferreira) Peripheral vascular insufficiency (Chronic) I73.9 History of myocardial infarction (Chronic) I25.2 Atherosclerotic heart disease of [place] coronary artery without angina pectoris (Chronic) I25.10 CABG x 3- KENNY to LAD, SVG to OM, SVG to distal right 09/24/13; Stent assisted PTCA of prox LAD and cutting balloon 11/06/02; PTCA/Stent of the CX 09/18/13 Hyperlipidemia (Chronic) E78.5 Hypertension (Chronic) I10 Squamous cell carcinoma of left lung (Chronic) C34.92 History of GI bleed Z87.19 COPD (chronic obstructive pulmonary disease) J44.9 Tobacco abuse Z72.0 Hypotension (Inactive) I95.9 Left shoulder pain (Inactive) M25.512 Shock (Inactive) R57.9 Allergies atorvastatin Adverse Reaction (Severe, Verified 02/16/20 16:30) Myalgias hydrocodone Adverse Reaction (Verified 02/16/20 16:30) Itching hydrocodone bitartrate [From Vicodin] Adverse Reaction (Verified 02/16/20 16:30) Itching oxycodone HCl [From Percocet] Adverse Reaction (Verified 02/16/20 16:30) Itching Home Medications: Ambulatory Orders Medication Instructions Recorded Aspirin [Aspirin, Baby] 81 mg PO DAILY 02/17/13 Hydrocortisone [Cortef] 10 mg PO QHS 02/11/20 Hydrocortisone [Cortef] 20 mg PO DAILY 02/11/20 Atorvastatin Calcium [Lipitor] 10 mg PO QHS 02/16/20 Furosemide [Lasix] 40 mg PO DAILY 02/16/20 Lisinopril [Zestril] 5 mg PO DAILY 02/16/20 Metoprolol(XL)Succ [Toprol Xl 25 mg PO DAILY 02/16/20 (Beta Herminia)] Potassium Chloride [K-Dur] 20 meq PO BIDCM 02/16/20 Ticagrelor [Brilinta] 90 mg PO BID 02/16/20 Acetaminophen [Tylenol Tablet] 650 mg PO Q6H PRN PRN tab 02/25/20 Benzonatate [Tessalon Perle] 100 mg PO TID PRN PRN cap 02/25/20 DiphenhydrAMINE [Benadryl] 25 mg PO BID PRN PRN cap 02/25/20 Docusate Sodium [Colace] 100 mg PO BID PRN PRN cap 02/25/20 Enoxaparin [Lovenox] 40 mg SC DAILY 02/25/20 Levofloxacin [Levaquin] 750 mg PO DAILY #5 tab 02/25/20 Oxycodone [Oxyir] 5 mg PO Q4H PRN PRN 1 Days #3 tab 02/25/20 Quetiapine Fumarate [Seroquel] 25 mg PO QHS 02/25/20 Surgical History: Surgical History (Last Updated 07/01/17 @ 12:07 by Lisa Ferreira) Presence of stent in coronary artery (Chronic) Z95.5 Stent assisted PTCA of prox LAD and cutting balloon 11/06/02; PTCA/Stent of the CX 09/18/13 Aortocoronary bypass status (Chronic) Onset Date: ~09/24/13 Z95.1 CABG x 3- KENNY to LAD, SVG to OM, SVG to distal right 09/24/13 S/P PTCA (percutaneous transluminal coronary angioplasty) (Chronic) Z98.61 Stent assisted PTCA of prox LAD and cutting balloon 11/06/02; PTCA/Stent of the CX 09/18/13 Surgical History: angioplasty - CABG x 3 and PCI., appendectomy, coronary bypass surgery - x 3., - - Bilateral tubal ligation. Psychiatric History: Anxiety BONER MEAT History: No pertinent BONER MEAT history Lives: Spouse/ Significant Other Smoking Status: Current every day smoker Tobacco Use: Cigarettes Alcohol: None Drugs: None - *Family History Offspring Family History: Family History (Last Updated 07/01/17 @ 12:08 by Lisa Ferreira) Mother Heart disease Hypertension History Items: Heart Disease - Patient with son with significant cardiac disease concurrently, CAD. Paternal Family History: Family History (Last Updated 07/01/17 @ 12:08 by Lisa Ferreira) Mother Heart disease Hypertension History Items: - - Patient with no market paternal family history including heart disease, diabetes, cancer. Maternal Family History: Family History (Last Updated 07/01/17 @ 12:08 by Lisa Ferreira) Mother Heart disease Hypertension History Items: Heart Disease Review of Systems Constitutional: Denies: Chills, Fever, Weight Change HEENT: Denies: Head Aches, Sinus Congestion, Sinus Drainage Cardiovascular: Denies: Chest Pain, Palpitations Respiratory: Denies: Cough, Shortness of breath at rest, Sputum production Gastrointestinal: Denies: Abdominal Pain, Nausea, Vomiting Genitourinary: Denies: Dysuria Musculoskeletal: Denies: Joint Pain, Joint Tenderness Skin: Denies: Rash, Wounds Neurological: Denies: Numbness, Tingling, Focal weakness Psychiatric: Denies: Anxiety, Depression, Homicidal Ideations, Suicidal Ideations Hematologic/ Lymphatic: Denies: Easy Bruising, Easy Bleeding VTE Information - Inpt Only VTE Present on Admission: No VTE Mechan Device Prophylaxis: Knee High TOOTIE Hose VTE Pharm Prophylaxis ordered?: Yes Patient Problems: Active and Suspected Problems (Last Updated 07/01/17 @ 12:07 by Lisa Ferreira) Debility (Acute) Healthcare associated bacterial pneumonia (Acute) Acute respiratory failure (Acute) Aspiration pneumonia (Acute) Septic shock (Acute) STEMI (ST elevation myocardial infarction) (Acute) Cardiac arrest (Acute) - Physical Exam Vitals/I&O's: Vital Signs Pulse Resp BP Pulse Ox 92 22 H 138/76 H 96 02/25/20 14:28 02/25/20 14:28 02/25/20 14:28 02/25/20 14:28 Oxygen Flow Rate (L/min) 4 Oxygen Delivery Method Nasal Cannula Weight: 58.967 kg Body Mass Index (BMI) 23.0 Finger Stick Blood Glucose 61 General: Alert, Oriented x3, Cooperative HEENT: Atraumatic, PERRLA, EOMI, Normocephalic Neck: Supple, No JVD, Negative Carotid Bruits Lungs: Clear to auscultation, Normal air movement Cardiovascular: Regular rate, No murmurs Abdomen: Bowel Sounds Present, Soft, Non Tender Extremities: No edema, Capillary Refill Less than 3 Seconds Skin: No rashes, No breakdown Musculoskeletal: No Tenderness to Palpation of Joints or Extremities Neurological: Cranial nerves II-XII grossly intact Psych/Mental Status: Normal Affect, Appropriate Assessment/Plan All Active Problems (Last Updated 07/01/17 @ 12:07 by Lisa Ferreira) Debility (Acute) Healthcare associated bacterial pneumonia (Acute) Acute respiratory failure (Acute) Aspiration pneumonia (Acute) Septic shock (Acute) STEMI (ST elevation myocardial infarction) (Acute) Cardiac arrest (Acute) [place]ors[place] de pointes (Acute) Ventricular tachycardia (Acute) NSTEMI (non-ST elevated myocardial infarction) (Acute) Cardiogenic shock (Acute) 64 year old female with below past medical history significant for recent cardiac arrest, myocardial infarction hospitalized for septic shock, acute respiratory failure secondary to gram negative aspiration pneumonia, admitted to TCU with debility, here for rehabilitation, strengthening, prior to discharge home with significant other. * Debility - PT/OT. * Pain - Tylenol 1000MG Q6H PRN pain (1-3), Oxycodone 5MG Q4H PRN pain (4-10). * Bowel - Miralax 17GM daily, Senna/colace 1 tablet BID, MOM 30ML daily PRN, Dulcolax 10MG OK daily PRN. * Adult immunization - Administer Prevnar 13, Pneumovax 23, Fluzone, COVID19 vaccine as appropriate. * DVT prophylaxis - Lovenox 40MG SC daily. * Coronary artery disease status post stent - Metoprolol succinate 25MG daily, Lisinopril 5MG daily, Brilinta 90MG BID, Aspirin 81MG daily. * Adrenal insufficiency - Corteg 20MG daily, 10MG QHS. * Hyperlipidemia - Atorvastatin 10MG QHS. * Chronic systolic congestive heart failure - Metoprolol succinate 25Mg daily, Lisinopril 5MG daily, Lasix 40Mg daily. * Hypokalemia - K-Dur 20MEQ BID. * Klebsiella Pneumonia - Levaquin 750MG daily thru 02/29/2020.
--- NOTE | 2020-02-25 21:03 | DCINST_ITS ---
- Discharge Diagnoses Current Active Problems: Current Active and Chronic Problems (Last Updated 07/01/17 @ 12:07 by Lisa Ferreira) Debility (Acute) Healthcare associated bacterial pneumonia (Acute) Acute respiratory failure (Acute) Aspiration pneumonia (Acute) Septic shock (Acute) Anxiety (Chronic) Adrenal insufficiency (Chronic) Coronary artery disease (Chronic) Hypokalemia (Chronic) STEMI (ST elevation myocardial infarction) (Acute) Cardiac arrest (Acute) Chronic obstructive pulmonary disease (COPD) (Chronic) Hyperlipidemia (Chronic) Hypertension (Chronic) You will use the following diet at home:: No restrictions, Regular Your food should be the consistency of: Regular Your liquids should be the consistency of: Regular/Thin Discharge Activity: Return to Normal Activity, May Shower, Use Walker Weight Bearing Status: Weight bearing as tolerated Call your doctor if you observe: Fever of 101 or Higher, Inability to urinate, Inability to have a bowel movement, Shortness of breath, Chest pain, Uncontrolled pain Allergies/Adverse Reactions: Allergies atorvastatin Adverse Reaction (Severe, Verified 02/16/20 16:30) Myalgias hydrocodone Adverse Reaction (Verified 02/16/20 16:30) Itching hydrocodone bitartrate [From Vicodin] Adverse Reaction (Verified 02/16/20 16:30) Itching oxycodone HCl [From Percocet] Adverse Reaction (Verified 02/16/20 16:30) Itching Medications to take at Discharge RX: Aspirin [Aspirin, Baby] 81 mg PO DAILY 02/17/13 RX: Hydrocortisone [Cortef] 10 mg PO QHS 02/11/20 RX: Hydrocortisone [Cortef] 20 mg PO DAILY 02/11/20 RX: Atorvastatin Calcium [Lipitor] 10 mg PO QHS 02/16/20 RX: Furosemide [Lasix] 40 mg PO DAILY 02/16/20 RX: Lisinopril [Zestril] 5 mg PO DAILY 02/16/20 RX: Metoprolol(XL)Succ [Toprol Xl (Beta Herminia)] 25 mg PO DAILY 02/16/20 RX: Potassium Chloride [K-Dur] 20 meq PO BIDCM 02/16/20 RX: Ticagrelor [Brilinta] 90 mg PO BID 02/16/20 RX: Acetaminophen [Tylenol Tablet] 650 mg PO Q6H PRN PRN tab 02/25/20 RX: Benzonatate [Tessalon Perle] 100 mg PO TID PRN PRN cap 02/25/20 RX: DiphenhydrAMINE [Benadryl] 25 mg PO BID PRN PRN cap 02/25/20 RX: Docusate Sodium [Colace] 100 mg PO BID PRN PRN cap 02/25/20 RX: Enoxaparin [Lovenox] 40 mg SC DAILY 02/25/20 RX: Levofloxacin [Levaquin] 750 mg PO DAILY #5 tab 02/25/20 RX: Oxycodone [Oxyir] 5 mg PO Q4H PRN PRN 1 Days #3 tab 02/25/20 RX: Quetiapine Fumarate [Seroquel] 25 mg PO QHS 02/25/20 The following prescriptions were given: RX: Levofloxacin [Levaquin] 750 mg PO DAILY #5 tab Transmission Status: Received by [facility] Primary Care Physician: Harvey Chow MD [Primary Care Provider] - Please follow up with your Primary Care Physician in: 2 weeks. Test Results: Test results from this visit will be discussed in further detail at your follow- up appointment, if applicable. Please Follow Up With: Lisa Irizarry PA When: 2 weeks. Please Follow Up With: Harvey Chow When: 2 weeks Proposed Discharge Date: 02/25/20
--- NOTE | 2020-02-25 21:04 | PCM.DC.SUM ---
Discharge Date and Diagnosis - Problem List Patient Problems: Active and Suspected Problems (Last Updated 07/01/17 @ 12:07 by Lisa Ferreira) Debility (Acute) Healthcare associated bacterial pneumonia (Acute) Acute respiratory failure (Acute) Aspiration pneumonia (Acute) Septic shock (Acute) STEMI (ST elevation myocardial infarction) (Acute) Cardiac arrest (Acute) Date of Admission: 02/25/20 Date of Discharge: 02/25/20 - Primary Discharge Diagnosis Acute Problems: Active Problems (Last Updated 07/01/17 @ 12:07 by Lisa Ferreira) Debility (Acute) Healthcare associated bacterial pneumonia (Acute) Acute respiratory failure (Acute) Aspiration pneumonia (Acute) Septic shock (Acute) STEMI (ST elevation myocardial infarction) (Acute) Cardiac arrest (Acute) - Secondary Discharge Diagnosis Chronic Problems: Chronic Problems (Last Updated 07/01/17 @ 12:07 by Lisa Ferreira) Anxiety (Chronic) Adrenal insufficiency (Chronic) Coronary artery disease (Chronic) Hypokalemia (Chronic) Chronic obstructive pulmonary disease (COPD) (Chronic) Tobacco use (Chronic) Presence of stent in coronary artery (Chronic) Stent assisted PTCA of prox LAD and cutting balloon 11/06/02; PTCA/Stent of the CX 09/18/13 Aortocoronary bypass status (Chronic ~09/24/13) CABG x 3- KENNY to LAD, SVG to OM, SVG to distal right 09/24/13 Peripheral vascular insufficiency (Chronic) History of myocardial infarction (Chronic) Atherosclerotic heart disease of [place] coronary artery without angina pectoris (Chronic) CABG x 3- KENNY to LAD, SVG to OM, SVG to distal right 09/24/13; Stent assisted PTCA of prox LAD and cutting balloon 11/06/02; PTCA/Stent of the CX 09/18/13 S/P PTCA (percutaneous transluminal coronary angioplasty) (Chronic) Stent assisted PTCA of prox LAD and cutting balloon 11/06/02; PTCA/Stent of the CX 09/18/13 Hyperlipidemia (Chronic) Hypertension (Chronic) Squamous cell carcinoma of left lung (Chronic) Hospital Course and Treatment Operations: None Procedures: None Summary of Care Provided: The patient is a 64 year old Female with below past medical history significant for recent cardiac arrest, myocardial infarction hospitalized for septic shock, acute respiratory failure secondary to gram negative aspiration pneumonia, admitted to TCU with debility, here for rehabilitation, strengthening, prior to discharge home with significant other. On arrival to TCU, resident wanted to leave, she told me she was mislead about what TCU is all about, she also mentioned she did not want her insurance involved, and she did not want a bill from staying in the TCU, her reasons for wanting to leave are unclear to me, because I could not follow her reasoning. Resident discharged against medical advice. Patient Problems: Active and Suspected Problems (Last Updated 07/01/17 @ 12:07 by Lisa Ferreira) Debility (Acute) Healthcare associated bacterial pneumonia (Acute) Acute respiratory failure (Acute) Aspiration pneumonia (Acute) Septic shock (Acute) STEMI (ST elevation myocardial infarction) (Acute) Cardiac arrest (Acute) - Physical Exam Vitals/I&O's: Vital Signs Pulse Resp BP Pulse Ox 92 22 H 138/76 H 96 02/25/20 14:28 02/25/20 14:28 02/25/20 14:28 02/25/20 14:28 Oxygen Flow Rate (L/min) 4 Oxygen Delivery Method Nasal Cannula Weight: 58.967 kg Body Mass Index (BMI) 23.0 Finger Stick Blood Glucose 61 Discharge Diet: No Restrictions Discharge Activity: Return to Normal Activity, May Shower, Use Walker Weight Bearing Status: Weight bearing as tolerated Call your doctor if you observe: Fever of 101 or Higher, Inability to urinate, Inability to have a bowel movement, Shortness of breath, Chest pain, Uncontrolled pain Home Medications: Medications to take at Discharge Aspirin [Aspirin, Baby] 81 mg PO DAILY 02/17/13 Hydrocortisone [Cortef] 10 mg PO QHS 02/11/20 Hydrocortisone [Cortef] 20 mg PO DAILY 02/11/20 Atorvastatin Calcium [Lipitor] 10 mg PO QHS 02/16/20 Furosemide [Lasix] 40 mg PO DAILY 02/16/20 Lisinopril [Zestril] 5 mg PO DAILY 02/16/20 Metoprolol(XL)Succ [Toprol Xl (Beta Hemrinia)] 25 mg PO DAILY 02/16/20 Potassium Chloride [K-Dur] 20 meq PO BIDCM 02/16/20 Ticagrelor [Brilinta] 90 mg PO BID 02/16/20 Acetaminophen [Tylenol Tablet] 650 mg PO Q6H PRN PRN tab 01/11/21 Benzonatate [Tessalon Perle] 100 mg PO TID PRN PRN cap 02/25/20 DiphenhydrAMINE [Benadryl] 25 mg PO BID PRN PRN cap 02/25/20 Docusate Sodium [Colace] 100 mg PO BID PRN PRN cap 02/25/20 Enoxaparin [Lovenox] 40 mg SC DAILY 02/25/20 Levofloxacin [Levaquin] 750 mg PO DAILY #5 tab 02/25/20 Oxycodone [Oxyir] 5 mg PO Q4H PRN PRN 1 Days #3 tab 02/25/20 Quetiapine Fumarate [Seroquel] 25 mg PO QHS 02/25/20 Following Prescriptions Were Given to Patient: Levofloxacin [Levaquin] 750 mg PO DAILY #5 tab Transmission Status: Received by [facility] #[facility] Primary Care Physician: Harvey Chow MD [Primary Care Provider] - Please follow up with your Primary Care Physician in: 2 weeks. Please Follow Up With: Lisa Irizarry PA When: 2 weeks. Please Follow Up With: Harvey Chow When: 2 weeks Disposition: Against Medical Advice Minutes spent on discharge:: 30 Patient Condition:: Guarded Medical Necessity - Tobacco Use Smoking Status: Current every day smoker Tobacco Use: Cigarettes Meaningful Use Info Meaningful Use Diagnoses (Choose all that apply): None applicable
== END 2020-02-25 18:20 | disposition left against medical advice (07) | DRG 190 ==
LOC: TCU 14:16
PROVIDERS: Admitting Provider Family Medicine Geriatric Medicine; PCP Family Medicine; Visit Provider Family Medicine Geriatric Medicine
DX: J44.0 Chronic obstructive pulmonary disease with (acute) lower respiratory infection (principal); J15.0 Pneumonia due to Klebsiella pneumoniae; J15.5 Pneumonia due to Escherichia coli; I50.22 Chronic systolic (congestive) heart failure; E27.40 Unspecified adrenocortical insufficiency; E78.5 Hyperlipidemia, unspecified; I11.0 Hypertensive heart disease with heart failure; E87.6 Hypokalemia; I25.10 Atherosclerotic heart disease of native coronary artery without angina pectoris; F41.9 Anxiety disorder, unspecified; Z86.74 Personal history of sudden cardiac arrest; I25.2 Old myocardial infarction; I73.9 Peripheral vascular disease, unspecified; Z95.1 Presence of aortocoronary bypass graft; F17.210 Nicotine dependence, cigarettes, uncomplicated

== ENCOUNTER → 2020-04-01 12:48 | Outpatient (CLI) | payer MEDICARE, SELFPAY ==
[2020-03-24 15:35] VITALS: BMI 21.4
--- NOTE | 2020-04-01 12:51 | ART_ITS ---
Reason For Study: Claudication Procedure A bilateral lower extremity continuous wave Doppler with analog waveform analysis,segmental pressures,and ankle brachial indexes without exercise. Left Segmental Pressures Left brachial= 114mmHg. Left thigh = 72mmHg. Left calf = 62mmHg. Left posterior tibial artery = 63mmHg. Left dorsalis pedis artery = 55mmHg. Left digit = 35 mmHg. The left dorsalis pedis waveforms are monophasic. The left posterior tibial artery waveforms are monophasic. Right Segmental Pressures Right brachial= 121mmHg. Right thigh = 118mmHg. Right calf = 100mmHg. Right posterior tibial artery = 96mmHg. Right dorsalis pedis artery = 82mmHg. Right digit = 75 mmHg. The right dorsalis pedis waveforms are biphasic. The right posterior tibial artery waveforms are biphasic. Indices The right ankle brachial index by the dorsalis pedis is 0.68. The right ankle brachial index by the posterior tibial artery is 0.79. The right digital-brachial index is 0.62. The left ankle brachial index by the dorsalis pedis is 0.45. The left ankle brachial index by the posterior tibial artery is 0.52. The left digital-brachial index is 0.29. Interpretation Summary Bilateral moderate occlussive disease with right biphasic and AMAYA 0.79. Left is monophasic and AMAYA 0.52. DBI 0.62 and 0.29. Ordering Physician: Lisa Irizarry Referring Physician: Harvey Chow Performed By: Julissa Panda RVT
== END ==
PROVIDERS: PCP Family Medicine; Referring Provider Physician Assistant Medical; Visit Provider Physician Assistant Medical
DX: I73.9 Peripheral vascular disease, unspecified (principal)
CPT/HCPCS: 93923

== ENCOUNTER → 2020-04-09 10:52 | Outpatient (CLI) | payer MEDICARE, MEDICAID, SELFPAY ==
[2020-03-24 15:35] VITALS: BMI 21.4
--- NOTE | 2020-04-09 10:56 | CDU_ITS ---
Reason For Study: Neck pain, CAD, Tobacco abuse Rt. Velocities/BP Lt. Velocities/BP Prox CCA 81.2/13.4 cm/sec. Prox CCA 63/13.9 cm/sec. Mid CCA 72.1/18.6 cm/sec. Mid CCA 52.2/12.6 cm/sec. Dist CCA 57.5/16.8 cm/sec. Dist CCA 48.5/14.5 cm/sec. Prox ICA 85.1/28.6 cm/sec. Prox ICA 180.6/66.5 cm/sec. Mid ICA 77.7/26.2 cm/sec. Mid ICA 155.8/33.4 cm/sec. Dist ICA 75.3/22.5 cm/sec. Dist ICA 69.5/24.5 cm/sec. Rt. ICA/CCA = 1.18. Lt. ICA/CCA = 3.5. Prox ECA 103.5/16.3 cm/sec. Prox ECA 86/10.2 cm/sec. Rt. Vert. 45.8/12.6 cm/sec. Lt. Vert. 62.9/20.1 cm/sec. Right Extracranial There is homogeneous, smooth atherosclerotic plaque noted in the right common carotid artery. There is heterogeneous, irregular atherosclerotic plaque noted in the right internal carotid artery. There is intimal thickening but no significant atherosclerotic plaque noted in the right external carotid artery. Flow could not be demonstrated in the right vertebral artery. Left Extracranial There is homogeneous, smooth atherosclerotic plaque noted in the left common carotid artery. There is heterogeneous, irregular atherosclerotic plaque noted in the left internal carotid artery. The atherosclerotic plaque causes acoustic shadowing. There is intimal thickening but no significant atherosclerotic plaque noted in the left external carotid artery. Antegrade flow is noted in the left vertebral artery. Interpretation Summary Irregular calcific plaque at the proximal right internal carotid <50% stenosis right internal carotid <50% stenosis right external carotid Irregular calcific plaque at the proximal left internal carotid with 50-69% stenosis <50% stenosis left external carotid Patent and antegrade vertebrals bilaterally Ordering Physician: Lisa Irizarry Referring Physician: Harvey Chow Performed By: Julissa Panda RVT
== END ==
PROVIDERS: PCP Family Medicine; Referring Provider Physician Assistant Medical; Visit Provider Physician Assistant Medical
DX: I25.10 Atherosclerotic heart disease of native coronary artery without angina pectoris (principal); I79.8 Other disorders of arteries, arterioles and capillaries in diseases classified elsewhere; Z72.0 Tobacco use
CPT/HCPCS: 93880

== ENCOUNTER → 2020-07-24 11:14 | Outpatient (CLI) | payer MEDICARE, MEDICAID, SELFPAY ==
[2020-07-24 10:33] VITALS: BMI 20.5
[2020-07-24 11:54] LABS: AST(SGOT) 14 U/L (15-37); Alanine Aminotransfer ALT/SGPT 19 U/L (13-56); Albumin, Serum 3.3 g/dL (3.2-5.0); Alkaline Phosphatase 85 U/L (45-117); Bilirubin, Direct 0.11 mg/dL (0.00-0.30); Cholesterol 162 mg/dL (200); Globulin 4.4 g/dL (2.2-4.2); High Density Lipoprotein 58 mg/dL; Protein, Total 7.7 g/dL (6.4-8.2); Triglycerides 160 mg/dL; Very Low Density Lipoprotein 32 mg/dL (5-40)
== END ==
PROVIDERS: PCP Family Medicine; Referring Provider Physician Assistant Medical; Visit Provider Physician Assistant Medical
DX: I25.10 Atherosclerotic heart disease of native coronary artery without angina pectoris (principal); E78.5 Hyperlipidemia, unspecified
CPT/HCPCS: 36415; 80061; 80076

== ENCOUNTER 2021-02-19 08:45 | Outpatient (CLI) | payer MEDICARE, SELFPAY ==
--- NOTE | 2021-02-19 08:49 | ECHOD_ITS ---
Reason For Study: CAD/ASHD Procedure This was a 2D Doppler, Color Flow transthoracic echocardiogram. The study was technically difficult. Exam performed in department. Left Ventricle Normal LV size. Mild segmental systolic dysfunction (see wall motion). The estimated ejection fraction is 50 %. No evidence for diastolic dysfunction. Posterior-Basal: Hypokinetic. Infero-Basal: Hypokinetic. Basal inferoseptal: Hypokinetic. Mid-Lateral : Hypokinetic. Mid-Posterior: Hypokinetic. Mid-Inferior: Hypokinetic. Right Ventricle Normal RV size. Normal systolic function. Atria Normal left atrium. Normal right atrium. No doppler evidence for ASD. Mitral Valve There is no mitral annular calcification. Mild diffuse mitral valve thickening. Mild mitral valve prolapse. Mild (1+) mitral valve insufficiency. Tricuspid Valve Normal tricuspid valve. Mild tricuspid valve insufficiency. Right ventricular systolic pressure estimated to be 30 mmHg. Aortic Valve Trisinus/trileaflet aortic valve. Mild diffuse aortic valve thickening. Pulmonic Valve The pulmonic valve is not well visualized. Mild (1+) pulmonic valve insufficiency. Great Vessels Normal sized aortic root. Pericardium/Pleural No pericardial effusion. MMode/2D Measurements & Calculations LVIDd: 4.5 cm IVSd: 0.81 cm Ao root diam: 3.5 cm LVIDs: 3.4 cm LVPWd: 0.82 cm FS: 23.8 % LAV(MOD-bp): 38.2 ml LVAd ap4: 24.6 cm2 LVAd ap2: 22.2 cm2 LAV(MOD-bp) Indexed: 24.4 ml/m2 LVLd ap4: 6.9 cm LVLd ap2: 6.5 cm LAV(MOD-sp2): 38.7 ml EDV(MOD-sp4): 74.8 ml EDV(MOD-sp2): 65.1 ml LAV(MOD-sp4): 35.4 ml EDV(sp4-el): 74.4 ml EDV(sp2-el): 64.3 ml LVAs ap4: 15.3 cm2 LVAs ap2: 13.8 cm2 LVLs ap4: 6.3 cm LVLs ap2: 5.5 cm ESV(MOD-sp4): 32.0 ml ESV(MOD-sp2): 29.8 ml ESV(sp4-el): 31.5 ml ESV(sp2-el): 29.6 ml EF(MOD-sp4): 57.3 % EF(MOD-sp2): 54.3 % EF(sp4-el): 57.6 % SV(MOD-sp4): 42.8 ml SV(MOD-sp2): 35.3 ml SV(sp4-el): 42.9 ml LA dimension(2D): 3.2 cm LA A4 area: 14.1 cm2 Time Measurements MV dec time: 0.18 sec Doppler Measurements & Calculations MV E max joe: 43.3 cm/sec Lat Peak E' Joe: 7.2 cm/sec Med Peak E' Joe: 7.2 cm/sec MV A max joe: 68.8 cm/sec E/E' lat: 6.0 E/E' med: 6.0 MV E/A: 0.63 Ao V2 max: 97.6 cm/sec LV V1 max: 77.3 cm/sec PA V2 max: 85.1 cm/sec Ao max P.8 mmHg LV V1 max P.4 mmHg TR max joe: 259.5 cm/sec TR max P.0 mmHg ECHO/Echo Complete Interpretation Summary The study was technically difficult. The estimated ejection fraction is 50 %. Mild segmental systolic dysfunction (see wall motion). Mild diffuse mitral valve thickening. Mild mitral valve prolapse. Mild (1+) mitral valve insufficiency. Mild tricuspid valve insufficiency. Mild diffuse aortic valve thickening. Mild (1+) pulmonic valve insufficiency. Right ventricular systolic pressure estimated to be 30 mmHg. No evidence for diastolic dysfunction. Ordering Physician: Alexy John Referring Physician: Harvey Chow Performed By: Lexie Riggins, RDCS, RVT
== END 2021-02-19 23:59 | disposition short-term general hospital (02) ==
PROVIDERS: PCP Family Medicine; Referring Provider Internal Medicine Cardiovascular Disease; Visit Provider Internal Medicine Cardiovascular Disease
DX: I25.10 Atherosclerotic heart disease of native coronary artery without angina pectoris (principal); I10 Essential (primary) hypertension; Z95.1 Presence of aortocoronary bypass graft; E78.5 Hyperlipidemia, unspecified
CPT/HCPCS: 93306

== ENCOUNTER 2021-02-23 06:47 | Outpatient (CLI) | payer MEDICARE, SELFPAY ==
--- NOTE | 2021-02-23 10:24 | STRESSREP ---
Stress Test Report Date: 02-23-2021 Procedure: Pharmacologic stress nuclear imaging study Indications: Chest pain; CAD; PCI; CABG Consent: Per the patient Procedure: The patient underwent pharmacologic (Regadenoson 0.4mg ) evaluation with a peak heart rate of 105 beats per minute (68%predicted maximal heart rate) and a peak blood pressure of 126/74 mmHg. The baseline ECG demonstrated normal sinus rhythm. The peak pharmacologic ECG demonstrated no obvious ECG changes. During infusion there was notation of transient 2-1 and 3-1 AV block with subsequent spontaneous return to sinus rhythm. There was no complaint of chest discomfort during pharmacologic infusion or recovery. The examination was discontinued secondary to completion of protocol. Impression: 1. Pharmacologic (Regadenoson) evaluation 2. Peak pharmacologic ECG with no obvious ECG changes. 3. During infusion there was notation of transient 2-1 and 3-1 AV block with subsequent spontaneous return to sinus rhythm. 4. Nuclear images pending Myocardial perfusion imaging study: Technique: The patient was injected with 11.3 millicuries of technetium 99m Cardiolite and subsequently rest SPECT Cardiolite nuclear imaging was obtained in the horizontal long, vertical long, and short axis views. The patient underwent pharmacologic (Regadenoson) evaluation with a peak heart rate of 105 beats per minute (68% percent predicted maximal heart rate) and a peak blood pressure of 126/74 mmHg. The patient was injected with 33.5 millicuries of technetium 99m Cardiolite and subsequently stress SPECT Cardiolite nuclear imaging was obtained in the horizontal long, vertical long, and short axis views. A gated Cardiolite study at peak stress was obtained. Interpretation: Rest and stress SPECT Cardiolite nuclear imaging status post realignment, normalization, and attenuation correction demonstrate relative uniform tracer uptake and myocardial perfusion appearing within normal limits. There is end systolic thickening and brightening. The gated Cardiolite study demonstrates myocardial thickening and inward wall motion. The reported LVEF is 59%. Impression: 1. rest and stress SPECT Cardiolite nuclear imaging demonstrate relative uniform tracer uptake and myocardial perfusion appearing within normal limits. 2. The gated Cardiolite study reports an LVEF of 59%. Comment: The cardiac dysrhythmia/conduction system findings during infusion appear to be compatible with the effects of the pharmacologic agent-Regadenoson/Lexiscan. This note was generated with [place] [employer] software. It may contain incorrect words, spelling, and punctuation that were not noted in checking the note before signing.
== END 2021-02-23 23:59 | disposition short-term general hospital (02) ==
LOC: CVS 06:48
PROVIDERS: PCP Family Medicine; Referring Provider Internal Medicine Cardiovascular Disease; Visit Provider Internal Medicine Cardiovascular Disease
DX: I25.10 Atherosclerotic heart disease of native coronary artery without angina pectoris (principal); I10 Essential (primary) hypertension; E78.5 Hyperlipidemia, unspecified; Z95.1 Presence of aortocoronary bypass graft; Z95.5 Presence of coronary angioplasty implant and graft
CPT/HCPCS: 78452; 93017; A9500; A4216; J2785

== ENCOUNTER 2021-03-11 13:17 | Outpatient (CLI) | payer MEDICARE, SELFPAY | END 2021-03-11 23:59 | disposition short-term general hospital (02) | LOC: PSN 13:18 | PROVIDERS: PCP Family Medicine; Referring Provider Internal Medicine Cardiovascular Disease; Visit Provider Internal Medicine Cardiovascular Disease | DX: I44.30 Unspecified atrioventricular block (principal) | CPT/HCPCS: 93225; 93226 ==

== ENCOUNTER 2021-06-17 09:20 | Emergency (ER) | payer MEDICARE, SELFPAY ==
[2021-06-17 09:21] VITALS: BP 140/95; PULSE 104; RESP 16; TEMP 36.4; O2SAT 98; BMI 21.9
--- NOTE | 2021-06-17 09:34 | EDS_ITS ---
HPI History of Present Illness Chief Complaint: Back Informant: patient Narrative Narrative: 65-year-old female presenting to the emergency department for the evaluation of back pain. Patient states that she went to bed last night fined. Around 5:00 this morning she began to cough very forcefully due to her longstanding COPD. She states that after she got done with her coughing she began to feel tightness in her low back. She states that now her back is in a spasm. She notes no radicular symptoms. No fevers. She notes that she chronically has some low back pain that is managed with Tylenol. She took 2-1/2 mg of diazepam this morning which did not help her. She tried wearing her back brace. [facility] Medical History Adrenal insufficiency Anxiety Aspiration pneumonia Atherosclerotic heart disease of [place] coronary artery without angina pectoris Cardiac arrest Cardiogenic shock Cardiomyopathy Carotid stenosis Carotid stenosis, left Chronic obstructive pulmonary disease (COPD) Coronary artery disease Debility Essential hypertension Healthcare associated bacterial pneumonia History of GI bleed History of myocardial infarction Hyperlipidemia Hypokalemia Hypotension Left shoulder pain NSTEMI (non-ST elevated myocardial infarction) PAD (peripheral artery disease) Peripheral vascular insufficiency Squamous cell carcinoma of left lung STEMI (ST elevation myocardial infarction) Tobacco abuse Tobacco use Torsades de pointes Ventricular tachycardia Home Medications lorazepam 1 mg tablet 1 mg PO QHS 04/15/20 [History Last Taken Unknown] metoprolol tartrate 25 mg tablet 25 mg PO BID #60 tab 07/21/20 [Rx Last Taken Unknown] ticagrelor 90 mg tablet 90 mg PO BID #180 tab 08/21/20 [Rx Last Taken Unknown] cilostazol 100 mg tablet 50 mg PO DAILY tab 02/04/21 [History Last Taken Unknown] hydrocortisone 10 mg tablet 20 mg PO .COMPLEX 02/04/21 [History Last Taken Unknown] nitroglycerin 0.4 mg sublingual tablet 0.4 mg SUBLINGUAL Q5-15M PRN #90 tab 02/04/21 [Rx Last Taken Unknown] lisinopril 2.5 mg tablet 2.5 mg PO DAILY #30 tab 04/01/21 [Rx Last Taken Unknown ] evolocumab 140 mg/mL subcutaneous pen injector 140 mg SC Q2W #2 ml 06/10/21 [Rx Last Taken Unknown] diazepam 2.5 mg PO Q8 PRN #10 tab 06/17/21 [Rx Last Taken Unknown] tramadol 50 mg PO Q6H PRN PRN 3 Days #15 tab 06/17/21 [Rx Last Taken Unknown] Allergy/AdvReac Type Severity Reaction Status Date / Time atorvastatin AdvReac Severe Myalgias Verified 06/17/21 09:23 hydrocodone AdvReac Itching Verified 06/17/21 09:23 hydrocodone bitartrate AdvReac Itching Verified 06/17/21 09:23 [From Vicodin] oxycodone HCl [From Percocet] AdvReac Itching Verified 06/17/21 09:23 Family History Mother Heart disease Hypertension CVA (cerebral vascular accident) Surgical History Aortocoronary bypass status (~09/24/13) Hx of appendectomy Hx of tubal ligation Presence of stent in coronary artery (~02/10/20) Social History Smoking Status: Current every day smoker tobacco type: cigarettes quit status: considering quitting alcohol intake: never substance use type: does not use caffeine: Yes what type of physical activity do you participate in: none frequency: does not exercise ROS ROS ED Constitutional Constitutional ED: Denies chills, fever(s) or weight loss Eyes Eyes: Denies change in vision or diplopia ENT ENT ED: Denies ear pain, rhinorrhea or sore throat Cardiovascular Cardiovascular: Denies chest pain, orthopnea, palpitations or racing heartbeat Respiratory/Chest Respiratory/Chest: Reports other Details: Chronic cough ; Denies cough, dyspnea or orthopnea Gastrointestinal Gastrointestinal: Denies abdominal pain, diarrhea, nausea or vomiting Genitourinary Genitourinary ED: Denies dysuria, hematuria or urinary frequency Musculoskeletal Musculoskeletal: Reports back pain; Denies arthralgias or myalgias Integumentary Denies abscess or rash Neurologic Neurologic: Denies headache(s) or weakness Psychiatric Psychiatric: Denies anxiety, depression, suicidal ideation or suicidal thoughts Endocrine Endocrinology: Denies polydipsia, polyphagia or polyuria Allergic/Immunologic Allergic/Immunologic ED: Denies mouth swelling, tongue swelling or urticaria EXAM Physical Exam Narrative Exam Narrative: Patient with antalgic gait and walking bent over Const Vital Signs: 06/17/21 09:21 Temperature 97.5 F L Temperature Source Oral Pulse Rate 104 H Respiratory Rate 16 Blood Pressure 140/95 H Blood Pressure Mean 110 Pulse Ox 98 Positive well nourished and well developed General Appearance ED: well developed HEENT Reports normocephalic, head/scalp atraumatic, TM's clear and moist mucous membranes Negative for trauma Tympanic Membrane ED: Yes TM's clear Eyes PERRL and EOMs intact bilaterally Neck no lymphadenopathy, supple and no JVD Resp normal respiratory effort and clear to auscultation bilaterally Cardio regular rate, regular rhythm and no murmurs GI normal to inspection, nondistended, normoactive bowel sounds and non-tender Palpation: soft Back/Spine no CVA tenderness and normal ROM Back/Spine Narrative: Patient sitting on the side of the bed bent partially over. Patient with limited painful range of motion. Patient with tenderness to palpation over the lumbar paraspinal musculature. Extremity normal to inspection General Extremety ED: Negative for edema General Extremity: Negative for edema Neuro oriented x3 and CN's II-XII intact bilaterally Sensorium / Orientation: alert Motor Exam: strength 5/5 throughout Deep Tendon Reflexes: Rt Patellar (L4): 2+, Lt Patellar (L4): 2+, Rt Ankle (S1): 2+ and Lt Ankle (S1): 2+ Deep Tendon Reflexes Back: Rt Patellar (L4): 2+, Lt Patellar (L4): 2+, Rt Ankle (S1): 2+ and Lt Ankle (S1): 2+ Psych mental status grossly normal Mood & Affect: Negative for depressed or tearful Skin no rashes or lesions noted and no wounds Skin Narrative: No tissue texture changes to suggest underlying infection MDM MDM MDM Narrative Medical decision making narrative: Patient received a dose of Toradol and morphine. She feels improved on repeat examination. I will write for her to have some diazepam and tramadol at home. I think based on the history and exam is most likely going to be a muscular strain. I doubt that this represents abscess, infarction, or disc herniation, or other spinal emergency. Return if worsening or concerns Discharge Plan Triage Chief Complaint: Back ED Provider: Shaun Hendricks Dx/Rx/DC Orders Clinical Impression: Acute lumbar myofascial strain Instructions: ED Back Sprain/Strain Prescriptions: New tramadol 50 MG tablet 50 mg PO Q6H PRN PRN (Reason: Pain) 3 Days Qty: 15 RF: 0 diazepam [diazepam] 5 MG tablet 2.5 mg PO Q8 PRN (Reason: Muscle Spasm) Qty: 10 RF: 0 No Action lorazepam [Ativan] 1 mg tablet 1 mg PO QHS RF: 0 cilostazol 100 mg tablet 50 mg PO DAILY RF: 0 nitroglycerin 0.4 mg tablet, sublingual 0.4 mg sublingual Q5-15M PRN (Reason: chest pain) Qty: 90 RF: 6 hydrocortisone 10 mg tablet 20 mg PO .COMPLEX RF: 0 metoprolol tartrate 25 mg tablet 25 mg PO BID Qty: 60 RF: 11 ticagrelor 90 mg tablet 90 mg PO BID Qty: 180 RF: 3 lisinopril 2.5 mg tablet 2.5 mg PO DAILY Qty: 30 RF: 11 Repatha SureClick 140 mg/mL pen injector 140 mg SC Q2W Qty: 2 RF: 11 Primary Care Provider: Harvey Chow Referrals: Harvey Chow MD [Primary Care Provider] - 3-5 Days if not improving Disposition Disposition: Home, Self Care
[2021-06-17] MEDS: morphine 10 MG/ML Syringe 5 MG IM (09:45)
[2021-06-17] MEDS: Ketorolac 60 MG/2 ML Vial IM (09:45)
== END 2021-06-17 10:40 | disposition home or self-care (01) ==
PROVIDERS: Emergency Provider Emergency Medicine; PCP Family Medicine; Visit Provider Emergency Medicine
DX: S39.012A Strain of muscle, fascia and tendon of lower back, initial encounter (principal); J44.9 Chronic obstructive pulmonary disease, unspecified; I42.9 Cardiomyopathy, unspecified; I73.9 Peripheral vascular disease, unspecified; X58.XXXA Exposure to other specified factors, initial encounter; F41.9 Anxiety disorder, unspecified; I25.10 Atherosclerotic heart disease of native coronary artery without angina pectoris; I65.22 Occlusion and stenosis of left carotid artery; Z87.01 Personal history of pneumonia (recurrent); I25.2 Old myocardial infarction; Z87.19 Personal history of other diseases of the digestive system; E78.5 Hyperlipidemia, unspecified; Z85.828 Personal history of other malignant neoplasm of skin; Z86.74 Personal history of sudden cardiac arrest; G89.29 Other chronic pain; Z79.899 Other long term (current) drug therapy; Z95.1 Presence of aortocoronary bypass graft
CPT/HCPCS: 96372; 99282

== ENCOUNTER → 2022-06-30 | Outpatient (CLI) | payer MEDICARE, SELFPAY ==
[2022-06-30 13:01] LABS: AST(SGOT) 21 U/L (15-37); Alanine Aminotransfer ALT/SGPT 32 U/L (13-56); Albumin, Serum 3.2 g/dL (3.2-5.0); Alkaline Phosphatase 66 U/L (45-117); Bilirubin, Direct 0.06 mg/dL (0.00-0.30); Cholesterol 162 mg/dL (200); High Density Lipoprotein 60 mg/dL; Protein, Total 7.2 g/dL (6.4-8.2); Triglycerides 155 mg/dL; Very Low Density Lipoprotein 31 mg/dL (5-40)
== END | disposition home or self-care (01) ==
LOC: LAB 11:32
PROVIDERS: PCP Nurse Practitioner Family; Referring Provider Nurse Practitioner Gerontology; Visit Provider Nurse Practitioner Gerontology
DX: E78.5 Hyperlipidemia, unspecified (principal)
CPT/HCPCS: 36415; 80061; 80076

== ENCOUNTER 2022-07-19 11:07 | Emergency (ER) | payer MEDICARE, SELFPAY ==
[2022-07-19 11:08] VITALS: BP 115/85; PULSE 87; RESP 16; TEMP 35.7; O2SAT 97; BMI 23.2
--- NOTE | 2022-07-19 11:40 | RAD_ITS ---
STUDY: X-RAY - RIGHT WRIST REASON FOR EXAM: Female, 66 years old. Injury/Pain TECHNIQUE: 3 view(s) of the wrist were obtained. COMPARISON: None. FINDINGS: Normal visualized distal radius and ulna. Normal radiocarpal articulation. Normal distal radioulnar articulation. Normal carpal bones. Normal carpal articulations. Normal carpometacarpal articulation of the thumb. Normal second through fifth carpometacarpal articulations. Normal visualized metacarpal bones. The soft tissue structures are unremarkable. RAD/Wrist min 3 Views IMPRESSION: Normal x-ray examination of the wrist. Electronically Signed: Philippe Herrera MD at 12:17 EDT ,
--- NOTE | 2022-07-19 11:53 | EDS_ITS ---
HPI History of Present Illness HPI Narrative: Patient presents with right wrist injury that occurred 5 days ago. 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 Patient states the handle from the cord came back and hit her directly on the volar aspect of her right wrist. Patient thinks it supinated her right wrist. Patient states she felt a pop. Patient describes her pain as aching and burning. Patient states it is worse with movement. Patient states nothing seems to help with the pain. Patient denies any paresthesias or weakness. Patient denies any other injuries. Chief Complaint: Upper Extremity Injury Informant: patient Occured/Mechanism Mechanism/Context: Yes blunt trauma Onset/Context/Timing Onset: Days (5) Context: Sudden Onset Timing: Continuous Quality of Pain: Aching and Burning Location: Right wrist Worsened by: Movement Relieved by: Nothing Associated Symptoms Associated Symptoms: Negative for Parasthesia, Weakness or Loss of Funtion PFSH PFS Medical History Adrenal insufficiency Anxiety Aspiration pneumonia Atherosclerotic heart disease of [place] coronary artery without angina pectoris Cardiac arrest Cardiogenic shock Cardiomyopathy Carotid stenosis Carotid stenosis, left Chronic obstructive pulmonary disease (COPD) Coronary artery disease Debility Essential hypertension Healthcare associated bacterial pneumonia History of GI bleed History of myocardial infarction Hyperlipidemia Hypokalemia Hypotension Left shoulder pain NSTEMI (non-ST elevated myocardial infarction) PAD (peripheral artery disease) Peripheral vascular insufficiency Squamous cell carcinoma of left lung STEMI (ST elevation myocardial infarction) Tobacco abuse Tobacco use Torsades de pointes Ventricular tachycardia Home Medications lorazepam 1 mg tablet (Ativan) 1 mg PO QHS 04/15/20 [History Last Taken Unknown] hydrocortisone 10 mg tablet 20 mg PO .COMPLEX adrenal insufficiency 02/04/21 [History Last Taken Unknown] diazepam 5 mg tablet 2.5 mg PO Q8 PRN Muscle Spasm #10 tabs 06/17/21 [Rx Last Taken Unknown] ticagrelor 90 mg tablet 90 mg PO BID blood thinner #180 tabs 08/19/21 [Rx Last Taken Unknown] albuterol sulfate 0.63 mg/3 mL solution for nebulization 0.63 mg inhalation Q4H 12/18/21 [History Last Taken Unknown] cilostazol 50 mg tablet 50 mg PO BID 12/18/21 [History Last Taken Unknown] lisinopril 2.5 mg tablet 2.5 mg PO DAILY #90 tabs 04/05/22 [Rx Last Taken Unknown] evolocumab 140 mg/mL subcutaneous pen injector (Enriqueta Anna) 140 mg subcut Q2W #2 mL 05/18/22 [Rx Last Taken Unknown] aspirin 81 mg tablet,delayed release (Adult Low Dose Aspirin) 81 mg PO DAILY 06/30/22 [History Last Taken Unknown] escitalopram oxalate 20 mg tablet (Lexapro) 20 mg PO DAILY 06/30/22 [History Last Taken Unknown] nitroglycerin 0.4 mg sublingual tablet 0.4 mg sublingual Q5-15M PRN chest pain #25 tabs 06/30/22 [Rx Last Taken Unknown] metoprolol tartrate 25 mg tablet 25 mg PO BID #180 tabs 07/14/22 [Rx Last Taken Unknown] Allergy/AdvReac Type Severity Reaction Status Date / Time atorvastatin AdvReac Severe Myalgias Verified 07/19/22 11:11 hydrocodone AdvReac Itching Verified 07/19/22 11:11 hydrocodone bitartrate AdvReac Itching Verified 07/19/22 11:11 [From Vicodin] oxycodone HCl [From Percocet] AdvReac Itching Verified 07/19/22 11:11 Family History Mother Heart disease Hypertension CVA (cerebral vascular accident) Surgical History Aortocoronary bypass status (~09/24/13) Hx of appendectomy Hx of tubal ligation Presence of stent in coronary artery (~02/10/20) Social History Smoking Status: Current every day smoker tobacco type: cigarettes quit status: considering quitting alcohol intake: never substance use type: does not use caffeine: Yes what type of physical activity do you participate in: none frequency: does not exercise ROS ROS ED Constitutional Constitutional ED: Denies chills or fever(s) Eyes Eyes: Denies blurry vision or change in vision ENT ENT ED: Denies rhinorrhea or sore throat Cardiovascular Cardiovascular: Denies chest pain or palpitations Respiratory/Chest Respiratory/Chest: Denies cough or dyspnea Gastrointestinal Gastrointestinal: Denies nausea or vomiting Genitourinary Genitourinary ED: Denies dysuria or hematuria Musculoskeletal Musculoskeletal: Denies back pain or neck pain Integumentary Denies abscess or rash Neurologic Neurologic: Denies headache(s) or weakness Allergic/Immunologic Allergic/Immunologic ED: Denies mouth swelling or urticaria EXAM Physical Exam Const Vital Signs: 07/19/22 11:08 Temperature 96.2 F L Temperature Source Temporal Pulse Rate 87 Respiratory Rate 16 Blood Pressure 115/85 H Blood Pressure Mean 95 Pulse Ox 97 Oxygen Delivery Method Room Air Positive well nourished and well developed General Appearance ED: well developed and NAD HEENT Reports moist mucous membranes Neck full ROM and supple Extremity Extremity Narrative: There is tenderness and mild edema over the right distal radius and wrist area. There is no obvious deformity noted. There is some ecchymosis over this area. Range of motion was limited in flexion and extension secondary to pain. Strength was 5/5 in the radial, median, and ulnar areas. Sensation was intact to light touch in the radial, median, and ulnar areas. Radial pulses are equal bilaterally. Capillary refill is less than 2 seconds in all digits. Neuro oriented x3, CN's II-XII intact bilaterally, moves all extremities, no focal motor deficits and no sensory deficits noted Sensorium / Orientation: alert Motor Exam: strength 5/5 throughout Psych mental status grossly normal MDM MDM MDM Narrative Medical decision making narrative: Differential diagnosis includes contusion, sprain, and occult fracture. X-rays of the right wrist will be obtained to assess for occult fracture. Radiography Diagnostic Testing: X-rays of the right wrist were obtained. There are 3 views. On my independent interpretation, there is a questionable nondisplaced fracture of the volar aspect of the right distal radius. There is some mild soft tissue swelling. Radiologist also interpreted the x-ray and does not report any fracture. Treatment and Re-Evaluation Narrative: Patient was advised of her findings. Patient was placed in a well-padded custom made volar short arm splint. Neurovascular exam was intact before and after placement of the splint. Patient was instructed to ice and elevate the right wrist. Patient was instructed to follow-up with her primary care physician in 5 to 7 days. Patient was also given referral for orthopedics for follow-up care. Patient understood and was agreeable with the plan. All questions were answered. Procedures Upper Extremity Splints Upper Extremity Splint: Orthoglass and Volar Splint Fabrication: Fabricated Location: Right Discharge Plan Triage Chief Complaint: Upper Extremity Injury ED Provider: Raheel Yun Dx/Rx/DC Orders Clinical Impression: Closed fracture of right distal radius, Tobacco use Instructions: ED Fracture, Upper Extremity Prescriptions: No Action lorazepam [Ativan] 1 mg tablet 1 mg PO QHS cilostazol 50 mg tablet 50 mg PO BID albuterol sulfate 0.63 mg/3 mL solution for nebulization 0.63 mg inhalation Q4H escitalopram oxalate [Lexapro] 20 mg tablet 20 mg PO DAILY aspirin [Adult Low Dose Aspirin] 81 mg tablet,delayed release (DR/EC) 81 mg PO DAILY nitroglycerin 0.4 mg tablet, sublingual 0.4 mg sublingual Q5-15M PRN (Reason: chest pain) Qty: 25 6RF Rx Instructions: do not exceed 3 doses per episode hydrocortisone 10 mg tablet 20 mg PO .COMPLEX Label Comments: TAKE 2 TABLETS BY MOUTH at 7AM and ONE TABLET at 7PM Rx Instructions: 20 mg PO TAKE 2 TABLETS BY MOUTH at 7AM and ONE TABLET at 7PM; diazepam [diazepam] 5 MG tablet 2.5 mg PO Q8 PRN (Reason: Muscle Spasm) Qty: 10 0RF ticagrelor 90 mg tablet 90 mg PO BID Qty: 180 3RF lisinopril 2.5 mg tablet 2.5 mg PO DAILY Qty: 90 3RF Repatha SureClick 140 mg/mL pen injector 140 mg SC Q2W Qty: 2 11RF metoprolol tartrate 25 mg tablet 25 mg PO BID Qty: 180 3RF Primary Care Provider: Nereyda Mcdonald Referrals: Nereyda Mcdonald, [employer] [Primary Care Provider] - 5-7 Days Disposition Disposition: Home, Self Care
== END 2022-07-19 12:42 | disposition home or self-care (01) ==
LOC: ED 12:34
PROVIDERS: Emergency Provider Emergency Medicine; PCP Nurse Practitioner Family; Visit Provider Emergency Medicine
DX: S52.501A Unspecified fracture of the lower end of right radius, initial encounter for closed fracture (principal); J44.9 Chronic obstructive pulmonary disease, unspecified; I42.9 Cardiomyopathy, unspecified; E78.5 Hyperlipidemia, unspecified; I10 Essential (primary) hypertension; I25.10 Atherosclerotic heart disease of native coronary artery without angina pectoris; W22.8XXA Striking against or struck by other objects, initial encounter; Y93.89 Activity, other specified; F17.210 Nicotine dependence, cigarettes, uncomplicated; F41.9 Anxiety disorder, unspecified; Z79.899 Other long term (current) drug therapy; Z79.52 Long term (current) use of systemic steroids; Z79.02 Long term (current) use of antithrombotics/antiplatelets; Z79.82 Long term (current) use of aspirin; Z90.49 Acquired absence of other specified parts of digestive tract; Z95.5 Presence of coronary angioplasty implant and graft
CPT/HCPCS: 29125; 73110; 99282

== ENCOUNTER 2023-02-03 09:23 | Emergency (ER) | payer MEDICARE, SELFPAY ==
[2023-02-03] VITALS (7 sets, daily range): BP systolic 88–136; BP diastolic 63–117; PULSE 93–101; RESP 15–23; TEMP 35.8–36.8; O2SAT 88–94; BMI 24.2
--- NOTE | 2023-02-03 09:46 | EX.ED.VIS.UR ---
HPI HPI - URI History of Present Illness Chief Complaint: Shortness of Breath Informant: patient Onset/Context/Timing Onset: Days Context: Gradual Onset Timing: Continuous Current Severity: Mild Maximum Severity: Mild Associated Symptoms Associated Symptoms: Positive for Nasal Congestion, Myalgias and Nonproductive cough Narrative Narrative: 67-year-old female history of COPD on 2 L of oxygen at home at night. She has nebulizer. Also prior history of [place] on the blood thinner Brilinta and aspirin. States since Tuesday she has not felt well developed a significant cough on Tuesday she had fevers as high as 100. And has posttussive emesis. She is able to drink fluids. States that her wheezing is gotten worse. Prior similar symptoms: Yes Recent Illness/Hospitalization: No ROS ROS ED ROS Narrative Cough. Fever. Wheezing. Review of Systems ROS Unobtainable: Denies due to encephalopathy Constitutional Constitutional ED: Reports fever(s); Denies chills Eyes Eyes: Denies blurry vision ENT ENT ED: Denies ear pain Cardiovascular Cardiovascular: Denies chest pain Respiratory/Chest Respiratory/Chest: Reports cough and dyspnea Gastrointestinal Gastrointestinal: Denies abdominal pain Genitourinary Genitourinary ED: Denies dysuria or hematuria Musculoskeletal Musculoskeletal: Denies arthralgias Integumentary Denies abscess Neurologic Neurologic: Denies headache(s) or paresthesias Psychiatric Psychiatric: Denies anxiety or depression Endocrine Endocrinology: Denies cold intolerance or heat intolerance Hematologic/Lymphatic Hematologic/Lymphatic: Denies lymphadenopathy Allergic/Immunologic Allergic/Immunologic ED: Denies mouth swelling, tongue swelling or urticaria [facility] Medical History Adrenal insufficiency Anxiety Aspiration pneumonia Atherosclerotic heart disease of [place] coronary artery without angina pectoris Cardiac arrest Cardiogenic shock Cardiomyopathy Carotid stenosis Carotid stenosis, left Chronic obstructive pulmonary disease (COPD) Coronary artery disease Debility Essential hypertension Healthcare associated bacterial pneumonia History of GI bleed History of myocardial infarction Hyperlipidemia Hypokalemia Hypotension Left shoulder pain NSTEMI (non-ST elevated myocardial infarction) PAD (peripheral artery disease) Peripheral vascular insufficiency Squamous cell carcinoma of left lung STEMI (ST elevation myocardial infarction) Tobacco abuse Tobacco use Torsades de pointes Ventricular tachycardia Home Medications lorazepam 1 mg tablet (Ativan) 1 mg PO QHS 04/15/20 [History Last Taken Unknown] hydrocortisone 10 mg tablet 20 mg PO .COMPLEX adrenal insufficiency 02/04/21 [History Last Taken Unknown] diazepam 5 mg tablet 2.5 mg (1/2 x 5 mg) PO Q8 PRN Muscle Spasm #10 tabs 06/17/21 [Rx Last Taken Unknown] cilostazol 50 mg tablet 50 mg PO BID 12/18/21 [History Last Taken Unknown] lisinopril 2.5 mg tablet 2.5 mg PO DAILY #90 tabs 04/05/22 [Rx Last Taken Unknown] evolocumab 140 mg/mL subcutaneous pen injector (Enriqueta Sanchezick) 140 mg subcut Q2W #2 mL 05/18/22 [Rx Last Taken Unknown] escitalopram oxalate 20 mg tablet (Lexapro) 20 mg PO DAILY 06/30/22 [History Last Taken Unknown] nitroglycerin 0.4 mg sublingual tablet 0.4 mg sublingual Q5-15M PRN chest pain #25 tabs 06/30/22 [Rx Last Taken Unknown] metoprolol tartrate 25 mg tablet 25 mg PO BID #180 tabs 07/14/22 [Rx Last Taken Unknown] ticagrelor 90 mg tablet 90 mg PO BID blood thinner #180 tabs 08/16/22 [Rx Last Taken Unknown] aspirin 81 mg tablet,delayed release (Adult Low Dose Aspirin) 81 mg PO BID 01/03/23 [History Last Taken Unknown] hydrocodone-homatropine 5 mg-1.5 mg/5 mL (5 mL) oral syrup (Hycodan) 5 ml PO Q6H PRN cough 5 days #50 mL 02/03/23 [Rx Last Taken Unknown] prednisone 20 mg tablet 40 mg (2 x 20 mg) PO DAILY 7 days #14 tabs 02/03/23 [Rx Last Taken Unknown] Allergy/AdvReac Type Severity Reaction Status Date / Time acetaminophen [From Vicodin] Allergy Intermediate Itching Verified 02/03/23 10:21 atorvastatin AdvReac Severe Myalgias Verified 02/03/23 09:25 hydrocodone AdvReac Itching Verified 02/03/23 09:25 hydrocodone bitartrate AdvReac Itching Verified 02/03/23 09:25 [From Vicodin] oxycodone HCl [From Percocet] AdvReac Itching Verified 02/03/23 09:25 Family History Mother Heart disease Hypertension CVA (cerebral vascular accident) Surgical History Aortocoronary bypass status (~09/24/13) Hx of appendectomy Hx of tubal ligation Presence of stent in coronary artery (~02/10/20) Social History Smoking Status: Current every day smoker tobacco type: cigarettes quit status: considering quitting alcohol intake: never substance use type: does not use caffeine: Yes what type of physical activity do you participate in: none frequency: does not exercise EXAM Physical Exam Narrative Exam Narrative: 67-year-old female. Vital signs are stable her pulse ox on room air is 88% on 2 L is 93%. She is hypoxic without being on oxygen. She is currently afebrile. She does not look septic or toxic. She does not look significantly dehydrated. H EENT exam unremarkable. Neck nontender. No lymphadenopathy. Lungs scattered expiratory wheezes. No rales or rhonchi. Equal symmetrical. Heart regular rhythm rate about 100 no murmur. Chest wall and ribs nontender. Abdomen soft nontender. Moving all 4 extremities. Calves are nontender without edema or cords. Neurologically she is awake and alert with no focal motor deficits. Son present in the room. Const Vital Signs: 02/03/23 09:26 02/03/23 09:29 02/03/23 09:30 Temperature 96.4 F L 96.4 F L Temperature Source Oral Oral Pulse Rate 101 H 101 H Respiratory Rate 23 H 23 H Respiratory Effort Respiratory Depth Respiratory Pattern Blood Pressure 136/117 H 136/117 H Blood Pressure Mean 123 123 Pulse Ox 88 93 94 Oxygen Delivery Method Room Air Nasal Cannula Nasal Cannula Oxygen Flow Rate (L/min) 2 2 02/03/23 10:05 02/03/23 10:21 02/03/23 10:23 Temperature 98.2 F Temperature Source Oral Pulse Rate 100 95 Respiratory Rate 22 H 15 Respiratory Effort Short of Breath Respiratory Depth Normal Respiratory Pattern Normal Normal Blood Pressure 88/63 L Blood Pressure Mean 71 Pulse Ox 93 Oxygen Delivery Method Nasal Cannula Nasal Cannula Oxygen Flow Rate (L/min) 2 2 02/03/23 10:23 Temperature 98.2 F Temperature Source Oral Pulse Rate 93 Respiratory Rate 22 H Respiratory Effort Respiratory Depth Respiratory Pattern Blood Pressure 88/63 L Blood Pressure Mean 71 Pulse Ox 94 Oxygen Delivery Method Nasal Cannula Oxygen Flow Rate (L/min) 2 Positive well nourished and well developed; Negative for obese, cachectic or contractures General Appearance ED: well developed and NAD; Negative for cachectic, contractures, cyanotic, diaphoretic or pallor Nutritional Appearance: Negative for cachectic or obese HEENT Reports moist mucous membranes normocephalic and atraumatic; Negative for scalp tenderness Throat: posterior oropharynx normal Eyes PERRL and EOMs intact bilaterally General Eye ED: Negative for pale conjunctiva or scleral icterus Neck no lymphadenopathy, supple, no meningeal signs and no JVD General: Negative for anterior neck swelling or lymphadenopathy Resp normal respiratory effort and No clear to auscultation bilaterally Auscultation: wheezes; Negative for rales, rhonchi or diminished lung sounds Cardio S1 normal heart sound, S2 normal heart sound and no murmurs Rate: regular rate Rhythm: regular rhythm GI non-tender, non-distended and no masses Inspection: Negative for abdominal distention Auscultation: normoactive bowel sounds Palpation: soft; Negative for tender or guarding Back/Spine no CVA tenderness and normal ROM General Back: Negative for CVA tenderness Cervical Spine: Negative for cervical spine tenderness Thoracic Spine / Upper Back: Negative for thoracic spinal tenderness Lumbar Spine / Lower Back: Negative for lumbar spinal tenderness Sacrum: Negative for tenderness Extremity normal to inspection and full ROM General Extremety ED: Negative for cyanosis, tenderness or other findings General Extremity: Negative for cyanosis or other findings Neuro oriented x3 and CN's II-XII intact bilaterally Sensorium / Orientation: alert, oriented to person, oriented to place and oriented to time; Negative for orientation impaired, lethargic or stuporous Sensory Exam: No sensory level loss detected Motor Exam: strength 5/5 throughout; Negative for general weakness or strength abnormal Psych mental status grossly normal Appearance: Negative for other Attitude: No agitated Mood & Affect: Negative for depressed, anxious or tearful Skin General Skin Exam: Negative for jaundice or pallor Lesions: no lesions Rashes: no rashes Trauma: Negative for abrasion or laceration MDM MDM MDM Narrative Medical decision making narrative: 67-year-old female with URI symptoms may have COVID or the flu or other viral URI. Rule out pneumonia. She has COPD but has oxygen at home. She is hypoxic currently without oxygen. She will be treated with aerosols and oral prednisone. Screening labs and viral swabs will be obtained. Repeat exam patient is doing well at 11:25 AM doing well. She and her son are comfortable with her being discharged home. She has oxygen at home. She has nebulizer at home. She will be placed on prednisone 40 mg a day for 1 week. Hycodan cough syrup. She will follow-up as needed return if worse. History & Record Review Discussion w/independent historian: Patient Additional record(s) reviewed:: Prior inpatient record Lab Data Attestation: I reviewed the patient's lab results. Lab results narrative: CBC normal. White count of 7. H&H of 15 and 44. Platelets 220. Chemistries show a sodium 135. Gap of 8. Normal BUN of 7 creatinine 0.8. Glucose 115. COVID and flu negative. RSV positive. Labs: Laboratory Results - last 24 hr 02/03/23 10:00 WBC 7.2 RBC 4.84 Hgb 15.0 Hct 44.6 MCV 92.1 MCH 31.0 MCHC 33.6 RDW Std Deviation 47.2 H RDW Coeff of Nehemiah 13.8 Plt Count 220 MPV 9.6 Immature Gran % (Auto) 0.300 Neut % (Auto) 71.9 H Lymph % (Auto) 15.2 L [place] % (Auto) 9.7 Eos % (Auto) 2.5 Baso % (Auto) 0.4 Absolute Neuts (auto) 5.2 Absolute Lymphs (auto) 1.09 Nucleated RBC % 0 Sodium 135 L Potassium 3.8 Chloride 104 Carbon Dioxide 23.0 Anion Gap 8 BUN 7 Creatinine 0.80 Estim Creat Clear Calc 53.23 Est GFR (MDRD) Af Amer 92 Est GFR (MDRD) Non-Af 76 BUN/Creatinine Ratio 8.8 L Glucose 115 H Calcium 8.9 Radiography Chest X-Ray - ED: 1 View, Read by ED Physician, Read by Radiologist, Heart, Lungs, Mediastinum, Bony Structures, No Acute Disease and Chronic Changes Diagnostic Testing: Clinical Impression(s) from Imaging Studies Chest X-Ray 02/03/23 10:34 IMPRESSION: Hyperinflation. The lungs are clear. Electronically Signed: Philippe Herrera MD at 10:47 EST , Chest x-ray, portable, single view shows no acute abnormality. Normal cardiac silhouette. Normal lung gao. Prior sternotomy. Interpreted both by myself and the radiologist. Rhythm Strip Rhythm Strip: Sinus Tach Rate: 17 Ectopy: None EKG Initial EKG: Attestation: I personally reviewed and interpreted this EKG as follows: Interpretation: No Acute Injury Pattern and Sinus Tachycardia Comments: Sinus tachycardia rate of 107. Nonspecific ST-T wave abnormalities patient is underlying cardiac disease and prior MIs. No ST elevation. Discharge Plan Triage Chief Complaint: Shortness of Breath ED Provider: Keith Howe Dx/Rx/DC Orders Clinical Impression: RSV bronchitis, COPD exacerbation Instructions: RSV (Respiratory Syncytial Virus), ED COPD Flare Prescriptions: New prednisone 20 mg tablet 40 mg PO DAILY 7 Days Qty: 14 0RF hydrocodone-homatropine [Hycodan] 5-1.5 mg/5 mL (5 mL) syrup 5 ml PO Q6H PRN (Reason: cough) 5 Days Qty: 50 0RF No Action lorazepam [Ativan] 1 mg tablet 1 mg PO QHS cilostazol 50 mg tablet 50 mg PO BID escitalopram oxalate [Lexapro] 20 mg tablet 20 mg PO DAILY nitroglycerin 0.4 mg tablet, sublingual 0.4 mg sublingual Q5-15M PRN (Reason: chest pain) Qty: 25 6RF Rx Instructions: do not exceed 3 doses per episode aspirin [Adult Low Dose Aspirin] 81 mg tablet,delayed release (DR/EC) 81 mg PO BID hydrocortisone 10 mg tablet 20 mg PO .COMPLEX Patient Comments: TAKE 2 TABLETS BY MOUTH at 7AM and ONE TABLET at 7PM Rx Instructions: 20 mg PO TAKE 2 TABLETS BY MOUTH at 7AM and ONE TABLET at 7PM; diazepam [diazepam] 5 MG tablet 2.5 mg PO Q8 PRN (Reason: Muscle Spasm) Qty: 10 0RF lisinopril 2.5 mg tablet 2.5 mg PO DAILY Qty: 90 3RF Repatha SureClick 140 mg/mL pen injector 140 mg SC Q2W Qty: 2 11RF metoprolol tartrate 25 mg tablet 25 mg PO BID Qty: 180 3RF ticagrelor 90 mg tablet 90 mg PO BID Qty: 180 3RF Primary Care Provider: Nereyda Mcdonald Referrals: Nereyda Mcdonald, [employer] [Primary Care Provider] - 1 Week if not improving Activity Restrictions/Additional Instructions: Use your oxygen at 2 L as needed at home. I would use it constantly the next several days. If you start feeling better you can only use it at night again. Prednisone daily for the next 7 days starting tomorrow. Hycodan cough syrup as needed. It has codeine in it. Fluids and rest. Return if you are feeling a lot worse. Disposition Disposition: Home, Self Care
[2023-02-03] MEDS: Ipratropium/Albuterol Sulfate 3 ML AMPUL.NEB INHALATION (10:02)
[2023-02-03] MEDS: 0.9% Normal Saline (1000mL) 1,000 ML 999 ML IV (10:17)
[2023-02-03] MEDS: predniSONE 20 MG Tablet 60 MG PO (10:17)
[2023-02-03 10:19] LABS: Absolute Lymphocyte Count 1.09 X10^3/uL (0.83-4.51); Absolute Neutrophil Count 5.2 X10^3/uL (2.0-7.7); Basophil# 0.03 X10^3/uL; Basophil% 0.4 % (0-1); Eosinophil# 0.18 X10^3/uL; Eosinophils% 2.5 % (0-5); Hematocrit 44.6 % (37-47); Lymphocyte # 1.09 X10^3/ul (0.83-4.51); Lymphocyte % 15.2 % (19-41); Mean Corp Hgb Conc 33.6 g/dL (32-36); Mean Corpuscular Volume 92.1 fL (81-99); Mean Platelet Vol. 9.6 fl (6.2-12.0); Monocyte% 9.7 % (0-10); NRBC Flagged by Analyzer 0 % (0-5); Neutrophil # 5.17 X10^3/uL (2.7-7.7); Neutrophil % 71.9 % (47-70); Platelet Count 220 K/mm3 (150-450); RBC Distribution Width CV 13.8 % (11.6-14.6); RBC Distribution Width SD 47.2 fl (35.1-43.9); Red Blood Count 4.84 M/mm3 (4.2-5.4); White Blood Count 7.2 K/mm3 (4.4-11.0)
[2023-02-03 10:23] LABS: Anion Gap 8 (5-15); BUN 7 mg/dL (7-18); BUN/Creat Ratio 8.8 RATIO (10-20); Calcium,Total 8.9 mg/dL (8.5-10.1); Chloride 104 mmol/L (98-107); EST Glomerular Filtration Rate 76 mL/min (>60); Est Glom Filt Rate - Afr Amer 92 mL/min (>60); Estimated Creatinine Clearance 53.23 ml/min; Glucose 115 mg/dL (74-106); Potassium 3.8 mmol/L (3.5-5.1); Sodium Level 135 mmol/L (136-145)
--- NOTE | 2023-02-03 10:34 | RAD_ITS ---
STUDY: X-RAY CHEST REASON FOR EXAM: Female, 67 years old. Cough TECHNIQUE: Single AP portable view of the chest. COMPARISON: Comparison is made with prior study of February 18, 2020. FINDINGS: EKG electrodes are seen. Hyperinflation. There is no demonstrated pleural abnormality. Sternal cerclage wires are present from a prior sternotomy. Normal mediastinum and mary. Normal visualized pulmonary arteries. There is atherosclerotic calcification of the aortic arch with tortuosity. Normal visualized thoracic spine. Normal visualized ribs, clavicles, and shoulders. There is no demonstrated abnormality of the visualized soft tissue structures of the upper abdomen. RAD/Chest 1 View (Portable) IMPRESSION: Hyperinflation. The lungs are clear. Electronically Signed: Philippe Herrera MD at 10:47 EST ,
--- NOTE | 2023-02-03 10:54 | EKG12_ITS ---
Test Reason : SHORT OF BREATH Blood Pressure : / mmHG Vent. Rate : 107 BPM Atrial Rate : 107 BPM P-R Int : 126 ms QRS Dur : 086 ms QT Int : 338 ms P-R-T Axes : 068 067 060 degrees QTc Int : 451 ms Sinus tachycardia Nonspecific ST abnormality Abnormal ECG Confirmed by NOAH BUSTILLOS, JASMEET ([id number]), sound editor KENROY HICKS ([id number]) on 02/04/2023 1:31:36 PM Referred By: JASON Confirmed By:JASMEET ZAMORA MD
== END 2023-02-03 11:54 | disposition home or self-care (01) ==
PROVIDERS: Emergency Provider Emergency Medicine; PCP Nurse Practitioner Family; Visit Provider Emergency Medicine
DX: J44.0 Chronic obstructive pulmonary disease with (acute) lower respiratory infection (principal); J44.1 Chronic obstructive pulmonary disease with (acute) exacerbation; J20.5 Acute bronchitis due to respiratory syncytial virus; I25.10 Atherosclerotic heart disease of native coronary artery without angina pectoris; I10 Essential (primary) hypertension; I25.2 Old myocardial infarction; F17.210 Nicotine dependence, cigarettes, uncomplicated; R09.02 Hypoxemia; Z95.1 Presence of aortocoronary bypass graft; Z95.5 Presence of coronary angioplasty implant and graft; Z79.02 Long term (current) use of antithrombotics/antiplatelets; Z79.82 Long term (current) use of aspirin; Z79.899 Other long term (current) drug therapy; Z86.74 Personal history of sudden cardiac arrest
CPT/HCPCS: 99283; 71045; 80048; 85025; 87428; 87807; 93005; 94640; A4216

== ENCOUNTER 2023-02-04 02:58 | Inpatient (IN) | payer MEDICARE, SELFPAY ==
[2023-02-04] VITALS (37 sets, daily range): BP systolic 93–173; BP diastolic 61–102; PULSE 73–127; RESP 14–44; TEMP 37.1–38.3; O2SAT 87–97; BMI 23.8; BMI 22.9
--- NOTE | 2023-02-04 03:09 | EKG12_ITS ---
Test Reason : Blood Pressure : / mmHG Vent. Rate : 115 BPM Atrial Rate : 115 BPM P-R Int : 130 ms QRS Dur : 090 ms QT Int : 292 ms P-R-T Axes : 051 054 068 degrees QTc Int : 403 ms Sinus tachycardia Otherwise normal ECG Confirmed by NOAH BUSTILLOS, JASMEET ([id number]), assistant film editor KENROY HICKS ([id number]) on 02/04/2023 2:08:10 PM Referred By: Confirmed By:JASMEET ZAMORA MD
--- NOTE | 2023-02-04 03:11 | EDS_ITS ---
HPI History of Present Illness Chief Complaint: Shortness of Breath Informant: patient and EMS Limited: stupor and uncooperative Onset/Context/Timing Onset: Yesterday Context: gradual Timing: Continuous Narrative Narrative: Patient presents with shortness of breath that became worse today. Patient was seen here yesterday and was diagnosed with RSV. Patient was able to be discharged home yesterday. Patient has home oxygen at home aerosols. Patient was started on prednisone. EMS reports that the patient was nonverbal for them. Patient did not answer any questions for me. EMS administered Solu-Medrol prior to arrival. [facility] Medical History Adrenal insufficiency Anxiety Aspiration pneumonia Atherosclerotic heart disease of [place] coronary artery without angina pectoris Cardiac arrest Cardiogenic shock Cardiomyopathy Carotid stenosis Carotid stenosis, left Chronic obstructive pulmonary disease (COPD) Coronary artery disease Debility Essential hypertension Healthcare associated bacterial pneumonia History of GI bleed History of myocardial infarction Hyperlipidemia Hypokalemia Hypotension Left shoulder pain NSTEMI (non-ST elevated myocardial infarction) PAD (peripheral artery disease) Peripheral vascular insufficiency Squamous cell carcinoma of left lung STEMI (ST elevation myocardial infarction) Tobacco abuse Tobacco use Torsades de pointes Ventricular tachycardia Home Medications lorazepam 1 mg tablet (Ativan) 1 mg PO QHS 04/15/20 [History Last Taken Unknown] hydrocortisone 10 mg tablet 20 mg PO .COMPLEX adrenal insufficiency 02/04/21 [History Last Taken Unknown] diazepam 5 mg tablet 2.5 mg (1/2 x 5 mg) PO Q8 PRN Muscle Spasm #10 tabs 06/17/21 [Rx Last Taken Unknown] cilostazol 50 mg tablet 50 mg PO BID 12/18/21 [History Last Taken Unknown] lisinopril 2.5 mg tablet 2.5 mg PO DAILY #90 tabs 04/05/22 [Rx Last Taken Unknown] evolocumab 140 mg/mL subcutaneous pen injector (Repatha SureClick) 140 mg subcut Q2W #2 mL 05/18/22 [Rx Last Taken Unknown] escitalopram oxalate 20 mg tablet (Lexapro) 20 mg PO DAILY 06/30/22 [History Last Taken Unknown] nitroglycerin 0.4 mg sublingual tablet 0.4 mg sublingual Q5-15M PRN chest pain #25 tabs 06/30/22 [Rx Last Taken Unknown] metoprolol tartrate 25 mg tablet 25 mg PO BID #180 tabs 07/14/22 [Rx Last Taken Unknown] ticagrelor 90 mg tablet 90 mg PO BID blood thinner #180 tabs 08/16/22 [Rx Last Taken Unknown] aspirin 81 mg tablet,delayed release (Adult Low Dose Aspirin) 81 mg PO DAILY 01/03/23 [History Last Taken Unknown] hydrocodone-homatropine 5 mg-1.5 mg/5 mL (5 mL) oral syrup (Hycodan) 5 ml PO Q6H PRN cough 5 days #50 mL 02/03/23 [Rx Last Taken Unknown] prednisone 20 mg tablet 40 mg (2 x 20 mg) PO DAILY 7 days #14 tabs 02/03/23 [Rx Last Taken Unknown] Allergy/AdvReac Type Severity Reaction Status Date / Time acetaminophen [From Vicodin] Allergy Intermediate Itching Verified 02/04/23 03:05 atorvastatin AdvReac Severe Myalgias Verified 02/04/23 03:05 hydrocodone AdvReac Itching Verified 02/04/23 03:05 hydrocodone bitartrate AdvReac Itching Verified 02/04/23 03:05 [From Vicodin] oxycodone HCl [From Percocet] AdvReac Itching Verified 02/04/23 03:05 Family History Mother Heart disease Hypertension CVA (cerebral vascular accident) Surgical History Aortocoronary bypass status (~09/24/13) Hx of appendectomy Hx of tubal ligation Presence of stent in coronary artery (~02/10/20) Social History Smoking Status: Current every day smoker tobacco type: cigarettes quit status: considering quitting alcohol intake: never substance use type: does not use caffeine: Yes what type of physical activity do you participate in: none frequency: does not exercise ROS ROS ED Review of Systems ROS Unobtainable: due to mental condition and due to mental status EXAM Physical Exam Const Vital Signs: 02/04/23 02:59 02/04/23 03:03 02/04/23 03:31 Temperature 98.8 F 98.8 F Temperature Source Axillary Axillary Pulse Rate 114 H 124 H Respiratory Rate 26 H 36 H Respiratory Effort Short of Breath Accessory Muscle Use Head [place] Respiratory Depth Shallow Respiratory Pattern Tachypnea Blood Pressure 173/102 H 156/92 H Blood Pressure Mean 125 113 Pulse Ox 87 94 Oxygen Delivery Method Nasal Cannula Nasal Cannula Bi-pap Oxygen Flow Rate (L/min) 6 12 Fraction of Inspired Oxygen (FIO2) 45 02/04/23 03:42 02/04/23 03:35 02/04/23 05:33 Temperature Temperature Source Pulse Rate 124 H 127 H 120 H Respiratory Rate 40 H 42 H 38 H Respiratory Effort Respiratory Depth Respiratory Pattern Tachypnea Tachypnea Blood Pressure 127/92 H Blood Pressure Mean 103 Pulse Ox 89 95 Oxygen Delivery Method Oxygen Flow Rate (L/min) Fraction of Inspired Oxygen (FIO2) 50 45 02/04/23 05:18 Temperature Temperature Source Pulse Rate 120 H Respiratory Rate 37 H Respiratory Effort Respiratory Depth Respiratory Pattern Tachypnea Blood Pressure Blood Pressure Mean Pulse Ox 95 Oxygen Delivery Method Oxygen Flow Rate (L/min) Fraction of Inspired Oxygen (FIO2) 45 Positive well nourished and well developed General Appearance ED: well developed Neck supple and no meningeal signs Resp Auscultation: wheezes expiratory wheezes and throughout Cardio regular rhythm Rate: tachycardic GI non-distended Palpation: soft Extremity normal to inspection General Extremety ED: Negative for edema or tenderness General Extremity: Negative for edema Neuro CN's II-XII intact bilaterally [place] Coma Scale: document GCS findings To Voice Withdraws to Pain Incomprehe nsible 9 Motor Exam: strength 5/5 throughout Psych Attitude: agitated Mood & Affect: anxious MDM MDM MDM Narrative Medical decision making narrative: Differential diagnosis includes pneumonia, pneumothorax, COPD exacerbation, viral infection, pulmonary embolism, cardiac dysrhythmia, cardiac ischemia, and congestive heart failure. EKG will be obtained to assess for cardiac dysrhythmia and cardiac ischemia. Chest x-ray will be obtained to assess for congestive heart failure, pneumonia, and pneumothorax. CBC will be obtained to assess for leukocytosis and anemia. Basic metabolic profile will be obtained to assess for electrolyte abnormality and renal function. High-sensitivity troponin will be obtained to assess for cardiac ischemia. Lactate will be obtained to assess for sepsis. Blood cultures will be obtained to assess for sepsis. Arterial blood gas will be obtained to assess for pH and oxygenation status. D-dimer will be obtained to assess for pulmonary embolism. Urinalysis will be obtained to assess for urinary tract infection. Urine culture will be obtained to assess for urinary tract infection. Lab Data Lab results narrative: Arterial blood gas was reviewed. pH was 7.155, pCO2 was 72.4, pO2 was 66.5, bicarb was 25.5, and oxygen saturation was 85.5%. This was obtained just after starting BiPAP. CBC was reviewed. There is a leukocytosis of 14.2. The remainder is within normal limits. Basic metabolic profile was reviewed. Glucose was slightly elevated at 236. Anion gap was normal. CO2 was normal. Creatinine was slightly elevated at 1.06. High-sensitivity troponin was reviewed and was elevated at 128. Serum lactate was reviewed and was normal at 1.6. PT was INR and PTT were reviewed and were within normal limits. D-dimer was reviewed and was elevated at 2.08. Repeat ABG after 30 minutes on BiPAP showed a pH of 7.217, pCO2 of 62.0, pO2 of 77.4, bicarb of 25.2, and oxygen saturation of 91.8%. Urinalysis was reviewed. Leukocyte esterase was 100 with 25-50 white blood cells. There were 10-25 epithelial cells. There is 3+ bacteria. Labs: Laboratory Results - last 24 hr 02/04/23 02/04/23 02/04/23 03:04 03:18 04:07 WBC 14.2 H RBC 4.73 Hgb 14.4 Hct 45.9 MCV 97.0 D MCH 30.4 MCHC 31.4 L D RDW Std Deviation 51.1 H RDW Coeff of Nehemiah 14.1 Plt Count 279 MPV 11.0 Immature Gran % (Auto) 0.600 Neut % (Auto) 60.2 Lymph % (Auto) 27.9 Prentiss % (Auto) 10.4 H Eos % (Auto) 0.4 Baso % (Auto) 0.5 Absolute Neuts (auto) 8.5 H Absolute Lymphs (auto) 3.96 Nucleated RBC % 0 PT 13.7 INR 1.1 APTT 28.7 D-Dimer Quant (PE/DVT) 2.08 H* Sodium 138 Potassium 4.3 Chloride 106 Carbon Dioxide 25.0 Anion Gap 7 BUN 8 Creatinine 1.06 H Estim Creat Clear Calc 40.17 Est GFR (MDRD) Af Amer 66 Est GFR (MDRD) Non-Af 55 L BUN/Creatinine Ratio 7.5 L Glucose 236 H Lactic Acid 1.6 Calcium 8.3 L Troponin I High Sens 128 H* Urine Color Yellow Urine Clarity Clear Urine pH 5.0 Ur Specific [place] 1.025 Urine Protein 100 H Urine Glucose (UA) Normal Urine Ketones Negative Urine Occult Blood 250 H Urine Nitrite Negative Urine Bilirubin Negative Urine Urobilinogen Normal Ur Leukocyte Esterase 100 H Urine RBC 0-5 SEEN Urine WBC 25-50 SEEN Ur Squamous Epith Cells 10-25 SEEN Urine Bacteria 3+ Urine Mucus 0 SEEN ABG Data ABG results: ABG 02/04/23 02/04/23 03:25 04:23 Specimen Type ART ART Sample Site R Radial L Radial pH 7.16 L* 7.22 L Bicarbonate Actual 25.5 25.2 Total CO2 28 27 Base Excess -3 L -3 L O2 Saturation 86 L 92 L O2 % 48.0 50.0 ABG pCO2 72.4 H* 62.0 H ABG pO2 67 L 77 Zhang Test Positive Positive Respiration Rate 12 14 O2 Delivery Device BiPAP BiPAP Vent Mode Not entered Not entered Tidal Volume 500.0 500.0 POC PEEP 12 Crit Call To/Read Back Yes Radiography Chest X-Ray - ED: 1 View, Read by ED Physician, Read by Radiologist and Right Infiltrate Diagnostic Testing: Clinical Impression(s) from Imaging Studies Chest X-Ray 02/04/23 03:33 IMPRESSION: 1. Thickening of the interlobular septa likely due to interstitial edema which is new since the previous exam. 2. Slight right pleural effusion. Electronically Signed: Bakari Bledsoe MD at 3:49 EST , Chest CTA 02/04/23 04:19 IMPRESSION: 1. No pulmonary embolism or dissection. 2. Diffuse bronchial wall thickening bilaterally with scattered areas of mucus plugging bilaterally. 3. Spiculated pleural-based lesion measuring 1 cm left superior sulcus. Fleischner Society Guidelines recommend a follow-up chest CT in 6-12 months in patients with a low or high risk of malignancy. 4. Small foci of tree-in-bud nodular opacities in the apical posterior segment and the anterior segment of the left upper lobe may represent small foci of infection. 5. Emphysema. 6. Coronary artery disease. 7. Subsegmental atelectasis in the lingula. Electronically Signed: Bakari Bledsoe MD at 6:04 EST , Portable chest x-ray was obtained. There is 1 view. On my independent interpretation, there is some right lower lobe interstitial edema and a right pleural effusion. There is no cardiomegaly noted. Bony thorax is normal. Radiologist also interpreted the x-ray and agrees. Because of the elevated D-dimer, CTA of the chest was obtained. EKG Initial EKG: Attestation: I personally reviewed and interpreted this EKG as follows: Interpretation: No Acute Injury Pattern and Sinus Tachycardia (115) Comments: EKG was obtained. On my independent interpretation, it shows a sinus tachycardia with a rate of 115. GA interval was 130 ms. QRS interval was 90 ms. QTc interval was 403 ms. Bertrand was normal at 54. There are nonspecific ST-T wave changes. There is no ST elevation. Prior EKG tracings: available for review Prior: Unchanged (02/03/2023) Treatment and Re-Evaluation :: Patient was started on BiPAP. Patient was given a DuoNeb aerosol through the BiPAP. Since the patient was nonverbal and there is a question of her ability to protect her airway, family was advised of the possibility of the need for intubation. Family is agreeable with this if it is necessary. After the patient returned from her CTA, she became more awake and alert. Patient was able to sit up in bed and talk. Patient was awake, alert, oriented x 3. Patient states she was still somewhat short of breath but feeling better. Because of this, we will hold off on intubation. Patient was started on Rocephin for urinary tract infection coverage. Case was discussed with the hospitalist. He will admit the patient to ICU. Patient and family understand and are agreeable with the plan. All questions were answered. Critical Care Time Critical Care Time: Yes Critical care time (excluding procedures): 30-74 minutes (41), Including time spent:, Discussing w/Patient &/or Family/Lime Spreader, Discussing w/Consultants, Arranging Admission or Transfer and Performing Direct Patient Care at Bedside Discharge Plan Dx/Rx/DC Orders Clinical Impression: Acute hypercapnic respiratory failure, RSV bronchitis, Hypoxia, Urinary tract infection, Sepsis Disposition Disposition: Acute Care [facility]
--- OUTSIDE RECORDS SUMMARY | 2023-02-04 03:17 | XMS RPT_ITS | CCD ---
Author Name Unknown Address [address] [place] [address] [address] [place] [address] Organization [facility] Care Team Providers Care Toilet Attendant Name Role Phone Steven Chow Primary Care Provider [phone] GABRIEL CARABALLO Referring Unavailable STEVEN CHOW Primary Care Unavailable GABRIEL CARABALLO Attending Unavailable GABRIEL CARABALLO Attending Unavailable STEVEN CHOW Primary Care Unavailable Steven Chow MD Primary Care Provider ROBIN FRIED Attending Unavailable ELIUD MAYA Referring Unavailable STEVEN CHOW Primary Care Unavailable ELIUD MAYA Referring Unavailable STEVEN CHOW Primary Care Unavailable ELIUD MAYA Referring Unavailable STEVEN CHOW Primary Care Unavailable STEVEN CHOW Primary Care Unavailable JEEVAN JOHNSON Attending Unavailable ROBIN FRIED Referring Unavailable STEVEN CHOW Primary Care Unavailable JEEVAN JOHNSON Referring Unavailable STEVEN CHOW Primary Care Unavailable STEVEN CHOW Primary Care Unavailable Allergies Allergy Classification Reported Allergen(s) Allergy Type Date of Onset Reaction(s) Facility HMG-CoA Reductase Inhibitors (statins) (2 sources) atorvastatin Drug Allergy 08-05-2020 [facility] (4 sources) HYDROcodone Drug Allergy 08-05-2020 [facility] (15 sources) Acetaminophen / HYDROcodone; Translations: [HYDROCODONE-ACETA MINOPHEN] Drug Allergy 06-10-2014 GI Upset [facility] Work Phone: (15 sources) Acetaminophen / oxyCODONE; Translations: [OXYCODONE-ACETAMI NOPHEN] Drug Allergy 06-10-2014 GI Upset [facility] Work Phone: Medications Completed/Discontinued Medications Medication Drug Class(es) Dates Sig (Normalized) Sig (Original) albuterol 0.83 mg/ml inhalation solution (14 sources) beta2-Adrenergic Agonist Start: 09-05-2019 albuterol (PROVENTIL) 2.5 mg /3 mL (0.083 %) nebulizer solution Inhale 1 ampule via nebulizer every 4 hours as needed for wheezing. 0 09/05/2019 Active Problems Active Problems Problem Classification Problem Date Documented Da te Episodic/Chronic Cancer of bronchus; lung (20 sources) Malignant neoplasm of lower respiratory tract; Translations: [Malignant neoplasm of unspecified part of unspecified bronchus or lung] Onset: 09-12-2014 Chronic Occlusion or stenosis of precerebral arteries (4 sources) Left carotid artery occlusion; Translations: [Occlusion and stenosis of left carotid artery] Onset: 08-05-2020 08-05-2020 Chronic Other endocrine disorders (19 sources) Hypoadrenalism; Translations: [Unspecified adrenocortical insufficiency] Onset: 07-17-2020 Chronic Other endocrine disorders (14 sources) Mass of left adrenal gland; Translations: [Other specified disorders of adrenal gland] Onset: 06-10-2014 06-10-2014 Chronic Other endocrine disorders (14 sources) Mass of right adrenal gland; Translations: [Other specified disorders of adrenal gland] Onset: 06-10-2014 06-10-2014 Chronic Other endocrine disorders (14 sources) Adrenal cortical hypofunction; Translations: [Unspecified adrenocortical insufficiency] Onset: 10-25-2016 10-25-2016 Chronic Peripheral and visceral atherosclerosis (20 sources) Intermittent claudication of bilateral lower limbs co-occurrent and due to atherosclerosis; Translations: [Atherosclerosis of campo arteries of extremities with intermittent claudication, bilateral legs] Onset: 08-05-2020 Chronic Secondary malignancies (20 sources) Secondary malignant neoplasm of adrenal gland; Translations: [Secondary malignant neoplasm of unspecified adrenal gland] Onset: 09-13-2014 Chronic Secondary malignancies (14 sources) Secondary malignant neoplasm of brain; Translations: [Secondary malignant neoplasm of brain] Onset: 09-13-2014 09-13-2014 Chronic Secondary malignancies (1 source) Secondary malignant neoplasm of unspecified adrenal gland; Translations: [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, unspecified laterality (HCC)] Onset: 09-13-2014 Chronic Past or Other Problems Problem Classification Problem Date Documented Da te Episodic/Chronic Malaise and fatigue (17 sources) Malaise and fatigue; Translations: [Other malaise] Onset: 01-16-2016 01-16-2016 Episodic Results Test Name Value Interpretation Reference Range Facil ity Vital Signs Date Time Vital Sign Value Performing Clinician Sandhya joseph 01-25-2023 10:41-0500 Body height 156.2 cm Jeevan Johnson MD Work Phone: [facility] 01-25-2023 10:41-0500 Body temperature 97.39 [degF] Jeevan Johnson MD Work Phone: [facility] 01-25-2023 10:41-0500 Body weight 57.83 kg Jeevan Johnson MD Work Phone: [facility] 01-25-2023 10:41-0500 Diastolic blood pressure 74 mm[Hg] Jeevan Johnson MD Work Phone: [facility] 01-25-2023 10:41-0500 Heart rate 88 /min Jeevan Johnson MD Work Phone: [facility] 01-25-2023 10:41-0500 SaO2% (BldA) [Mass fraction] 96 % Jeevan Johnson MD Work Phone: [facility] 01-25-2023 10:41-0500 Systolic blood pressure 113 mm[Hg] Jeevan Johnson MD Work Phone: [facility] 07-19-2022 10:18-0400 Body height 156 cm Robin Fried PROCUREMENT COST COORDINATOR.DIE CUTTER Work Phone: [facility] 07-19-2022 10:18-0400 Body temperature 97.81 [degF] Robin Fried PROCUREMENT COST COORDINATOR.DIE CUTTER Work Phone: [facility] 07-19-2022 10:18-0400 Body weight 59.65 kg Robin Fried PROCUREMENT COST COORDINATOR.DIE CUTTER Work Phone: [facility] 07-19-2022 10:18-0400 Diastolic blood pressure 82 mm[Hg] Robin Fried PROCUREMENT COST COORDINATOR.DIE CUTTER Work Phone: [facility] 07-19-2022 10:18-0400 Heart rate 90 /min Napoleon Fried PROCUREMENT COST COORDINATOR.DIE CUTTER Work Phone: [facility] 07-19-2022 10:18-0400 SaO2% (BldA) [Mass fraction] 95 % Robin Fried PROCUREMENT COST COORDINATOR.DIE CUTTER Work Phone: [facility] 07-19-2022 10:18-0400 Systolic blood pressure 123 mm[Hg] Robin Fried PROCUREMENT COST COORDINATOR.DIE CUTTER Work Phone: [facility] 01-13-2022 14:52-0500 Body temperature 98.4 [degF] Eliud Maya MD Work Phone: [facility] 01-13-2022 14:52-0500 Body weight 59.42 kg Eliud Maya MD Work Phone: [facility] 01-13-2022 14:52-0500 Diastolic blood pressure 85 mm[Hg] Eliud Maya MD Work Phone: [facility] 01-13-2022 14:52-0500 Heart rate 104 /min Eliud Maya MD Work Phone: [facility] 01-13-2022 14:52-0500 SaO2% (BldA) [Mass fraction] 94 % Eliud Maya MD Work Phone: [facility] 01-13-2022 14:52-0500 Systolic blood pressure 126 mm[Hg] Eliud Maya MD Work Phone: [facility] 07-14-2021 10:59-0400 Body height 157.5 cm Eliud Maya MD Work Phone: [facility] 07-14-2021 10:59-0400 Body temperature 98.29 [degF] Eliud Maya MD Work Phone: [facility] 07-14-2021 10:59-0400 Body weight 56.47 kg Eliud Maya MD Work Phone: [facility] 07-14-2021 10:59-0400 Diastolic blood pressure 68 mm[Hg] Eliud Maya MD Work Phone: [facility] 07-14-2021 10:59-0400 Heart rate 90 /min Eliud Maya MD Work Phone: [facility] 07-14-2021 10:59-0400 SaO2% (BldA) [Mass fraction] 95 % Eliud Maya MD Work Phone: [facility] 07-14-2021 10:59-0400 Systolic blood pressure 100 mm[Hg] Eliud Maya MD Work Phone: [facility] Encounters Encounter Date Encounter Type Care Provider Facility Start: 01-25-2023 End: 01-25-2023 ambulatory STEVEN HENRIK AUSTEN Facility:[facility] Start: 01-25-2023 End: 01-25-2023 ambulatory Jeevan Johnson MD Work Phone: Hematology/Oncology Procedures Date Procedure Procedure Detail Performing Clinician Start: 01-25-2023 Radiologic exam ches t 2 views Jeevan Johnson MD Work Phone: Start: 08-19-2022 Radex wrist complete minimum 3 views [facility] Start: 07-23-2022 End: 07-23-2022 Radex forearm 2 views [facility] Provider Start: 07-13-2022 Ct thorax w/o contra st material Eliud Maya MD Work Phone: Start: 07-09-2021 Ct thorax w/contrast material Eliud Maya MD Work Phone: Start: 01-15-2021 Adult depression scr eening assessment Ct (I-Stat) Work Phone: Start: 09-15-2020 Cta abdl aorta&bi il iofem w/contrast&postp Joey Oglesby MD Work Phone: Start: 08-22-2020 Creatinine blood Joey Oglesby MD Work Phone: Start: 12-25-[address] (I-Stat ) Work Phone: Plan of Treatment Date Care Activity Detail Author Start: 07-13-2025 DIABETES SCREEN DIABETES SCREEN [facility] Start: 07-13-2025 Diabetes Screening Diabetes Screenin g [facility] Start: 01-13-2025 DIABETES SCREEN DIABETES SCREEN [facility] Start: 07-09-2024 DIABETES SCREEN DIABETES SCREEN [facility] Start: 07-27-2023 End: 02-24-2024 Ct thorax w/o contrast material CT CHEST WO IVCON Radiology Routine Malignant neoplasm of unspecified part of unspecified bronchus or lung (HCC) Expected: 07/27/2023 (Approximate), Expires: 02/24/2024 [facility] Work Phone: Immunizations Immunization Date Immunization Notes Care Provider Talisha gaines 11-12-2021 influenza virus vaccine, unspecified formulation Xr Mob Work Phone: [facility] 11-25-2017 influenza, injectabl e, quadrivalent, preservative free Ct ([facility]) Work Phone: [facility] 11-30-2016 influenza, injectabl e, quadrivalent, preservative free Ct (I-Stat) Work Phone: [facility] 10-27-2015 influenza, high dose seasonal, preservative-free Ct (I-Stat) Work Phone: [facility] 11-25-2014 influenza, injectabl e, quadrivalent, preservative free Ct (I-Stat) Work Phone: [facility] Work Phone: Payers Date Payer Category Payer Medicare [id number] 2021 Unknown ANTHEM BLUE [facility] S AND BLUE [employer] ANTHEM [employer] O [id number] 2021-Present [phone] [address] [place] [address] [facility] [id number] 2021 Unknown [id number] 2020 Medicaid MEDICAID [facility] DEPT OF JOB [id number] 2020-Present [phone] [address] [place] [address] [id number] 2020 Medicare MEDICARE MEDICAR E PART A AND B [id number] 2020-Present [phone] [place] [address] [id number] Social History Date Type Detail Facility Start: 08-22-2020 End: 01-25-2023 Tobacco smoking status WVIS Current every day smoker [facility] Start: 02-15-1972 History of tobacco use Cigarette Smo ker [facility] Start: 08-22-2020 End: 07-19-2022 Cigarettes smoked current (pack per day) - Reported [facility] Start: 08-22-2020 End: 01-25-2023 Tobacco use and exposure Never used [facility] Start: 08-22-2020 Alcohol intake Lifetime non-d polina (finding) [facility] Work Phone: Start: 08-05-2020 History SDOH Alcohol Frequency [address] [facility] [employer] Phone: Start: 1955 Sex Assigned At Not on file [employer] Work Phone: Start: 01-03-2022 End: 01-13-2022 Exposure to SARS-CoV-2 (event) Not sure [facility] Start: 1955 Sex Assigned At Female [employer] Work Phone: Start: 01-15-2021 End: 01-25-2023 Alcohol intake Current non-drinker of alcohol (finding) [facility] Start: 11-05-2019 End: 01-25-2023 Tobacco Comment Pt has cut back to 1/4 pack daily. [facility] Start: 01-15-2021 End: 07-19-2022 Tobacco use panel [facility] Adult Depression Screening Assessment 0 [facility] Start: 07-13-2020 Gender identity Identifies as female gender (finding) [facility] Start: 07-13-2020 Sexual orientation Heterosexual (moriah howard) [facility] Clinical Notes 07-15-2015 to 01-25-2023 Jeevan Johnson MD - 01/25/2023 10:50 AM Senia Branham, RT(R) - 01/25/2023 10:10 AM ESTTelephone Encounter - Lilly Grant - 08/30/2022 8:18 AM EDT Note Date & Type Note Facility 01-25-2023 Note HNO ID: [id number] Author: Jeevan Johnson MD Service: ? 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 Treated initially with carboplatin taxol, then SA nivolumab through December 2017. Also had brain met treated with GK. She's been followed since December 2017, has done well. Scans reviewed. 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 Clinically she is well RECOMMENDATION/PLAN: 1. Update scans in June 2023 2. Chest x ray today Written and verbal health teaching given to patient, patient verbalizes understanding and agrees with treatment plan. PAST MEDICAL HISTORY Diagnosis Date COPD (chronic obstructive pulmonary disease) (HCC) Emphysema/COPD (HCC) Hypercholesteraemia Hypertension Premature menopause Underweight Unspecified cardiovascular disease PAST SURGICAL HISTORY Procedure Laterality Date APPENDECTOMY 1973 PAST SURGICAL HISTORY OF [id number] cardiac stent x4 PAST SURGICAL HISTORY OF 09/2013 triple bipass surgery PAST SURGICAL HISTORY OF Suction DANDC, missed AB TUBAL LIGATION FAMILY HISTORY Problem Relation Age of Onset Heart Mother Social History Tobacco Use Smoking status: Every Day Packs/day: 1.00 Years: 51.00 Additional pack years: 0.00 Total pack years: 51.00 Types: Cigarettes Smokeless tobacco: Never Tobacco comments: Pt has cut back to 1/4 pack daily. Vaping Use Vaping Use: Never used Substance Use Topics Alcohol use: No Drug use: No Comment: occassionally marijuana in past ALLERGIES: ALLERGIES Allergen Reactions Percocet [Oxycodone* GI Upset Vicodin [Hydrocodon* GI Upset CURRENT OUTPATIENT MEDICATIONS: hydrocortisone (CORTEF) 10 mg tablet 20mg orally 7 AM AND 10mg orally 7 PM. escitalopram oxalate (LEXAPRO) 20 mg tablet Take 20 mg by mouth once daily. aspirin 81 mg cap Take 1 tablet by mouth two times a day. cilostazol (PLETAL) 100 mg tablet Take 1/2 tablet by mouth twice daily. BRILINTA 90 mg tablet Take 90 mg by mouth twice daily. lisinopril 2.5 mg tablet Take 2.5 mg by mouth once daily. metoprolol tartrate, short acting, (LOPRESSOR) 25 mg tablet Take 25 mg by mouth twice daily. LORazepam (ATIVAN) 1 mg tablet Take 1.5 mg by mouth at bedtime as needed. REPATHA SURECLICK 140 mg/mL pen injector inject 140 MG SUBCUTANEOUSLY EVERY 2 WEEKS albuterol (PROVENTIL) 2.5 mg /3 mL (0.083 %) nebulizer solution Inhale 1 ampule via nebulizer every 4 hours as needed for wheezing. OXYGEN, HOME THERAPY, Inhale 2 L/min as instructed daily at bedtime. REVIEW OF SYSTEMS: GENERAL: No fever, night sweats, weight loss or malaise. All other reviewed and negative other than HPI. PHYSICAL EXAMINATION: VITAL SIGNS: BP 113/74 Pulse 88 Temp (Src) 97.4 (Temporal) Ht 5' 1.5 (1.56m) Wt 127 lb 8 oz (57.8kg) SpO2 96% BMI 23.70 kg/(m2). GENERAL APPEARANCE: Well appearing, in no acute distress, alert and oriented x3, well-hydrated, well nourished. No palpable adenopathy. I spent a total of 30 minutes on the date of the service which included preparing to see the patient, [id number] patient care, completing clinical documentation, obtaining and/or reviewing separately obtained history, performing a medically appropriate examination, counseling and educating the patient/family/caregiver, ordering medications, tests, or procedures, independently interpreting results (not separately reported), and communicating results to the patient/family/caregiver. Electronically Signed: Jeevan Johnson MD January 25, 2023 10:52 AM [facility] 01-25-2023 Note HNO ID: [id number] Author: Senia Ponce RT(R) Service: Radiology Author Type: Technologist Type: Progress Notes Filed: 01/25/2023 10:27 AM Note Text: Radiology Service Progress Note PATIENT NAME: Jonelle Coronado DATE OF SERVICE: January 25, 2023 TIME: 10:15 AM PATIENT IDENTITY VERIFICATION COMPLETED USING TWO (2) IDENTIFIERS: Name and Date of confirmed by patient verbally. FALL SCREENING: Has the patient had 2 falls in the last year or 1 fall with injury or currently using an Ambulatory Assistive Device (Walker, Cane, Wheelchair, Crutches, etc.)? No PATIENT GENDER DATA: Female. status: : No status: NO. PATIENT RELEVANT IMPLANT DATA REVIEWED: Yes RADIOLOGY DEPARTMENT: General X-ray: Exam(s) Completed: Chest X-Ray PERIPHERAL IV DATA: Not applicable SIGNED BY: Senia Ponce RT(R) January 25, 2023 10:15 AM [facility] 01-25-2023 History of Presen t illness Narrative HISTORY OF PRESENT ILLNESS: Jonelle Coronado is a 67 year old female dx with squamous cell carcinoma lung, found initially on adrenal gland when they investigated abdominal pain. Treated initially with carboplatin taxol, then SA nivolumab through December 2017. Also had brain met treated with GK. She's been followed since December 2017, has done well. Scans reviewed. 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 Clinically she is well RECOMMENDATION/PLAN: 1. Update scans in June 2023 2. Chest x ray today Written and verbal health teaching given to patient, patient verbalizes understanding and agrees with treatment plan. PAST MEDICAL HISTORY Diagnosis Date COPD (chronic obstructive pulmonary disease) (HCC) Emphysema/COPD (HCC) Hypercholesteraemia Hypertension Premature menopause Underweight Unspecified cardiovascular disease PAST SURGICAL HISTORY Procedure Laterality Date APPENDECTOMY 1973 PAST SURGICAL HISTORY OF [id number] cardiac stent x4 PAST SURGICAL HISTORY OF 09/2013 triple bipass surgery PAST SURGICAL HISTORY OF Suction D&C, missed AB TUBAL LIGATION FAMILY HISTORY Problem Relation Age of Onset Heart Mother Social History Tobacco Use Smoking status: Every Day Packs/day: 1.00 Years: 51.00 Additional pack years: 0.00 Total pack years: 51.00 Types: Cigarettes Smokeless tobacco: Never Tobacco comments: Pt has cut back to 1/4 pack daily. Vaping Use Vaping Use: Never used Substance Use Topics Alcohol use: No Drug use: No Comment: occassionally marijuana in past ALLERGIES: ALLERGIES Allergen Reactions Percocet [Oxycodone* GI Upset Vicodin [Hydrocodon* GI Upset CURRENT OUTPATIENT MEDICATIONS: hydrocortisone (CORTEF) 10 mg tablet 20mg orally 7 AM & 10mg orally 7 PM. escitalopram oxalate (LEXAPRO) 20 mg tablet Take 20 mg by mouth once daily. aspirin 81 mg cap Take 1 tablet by mouth two times a day. cilostazol (PLETAL) 100 mg tablet Take 1/2 tablet by mouth twice daily. BRILINTA 90 mg tablet Take 90 mg by mouth twice daily. lisinopril 2.5 mg tablet Take 2.5 mg by mouth once daily. metoprolol tartrate, short acting, (LOPRESSOR) 25 mg tablet Take 25 mg by mouth twice daily. LORazepam (ATIVAN) 1 mg tablet Take 1.5 mg by mouth at bedtime as needed. REPATHA SURECLICK 140 mg/mL pen injector inject 140 MG SUBCUTANEOUSLY EVERY 2 WEEKS albuterol (PROVENTIL) 2.5 mg /3 mL (0.083 %) nebulizer solution Inhale 1 ampule via nebulizer every 4 hours as needed for wheezing. OXYGEN, HOME THERAPY, Inhale 2 L/min as instructed daily at bedtime. REVIEW OF SYSTEMS: GENERAL: No fever, night sweats, weight loss or malaise. All other reviewed and negative other than HPI. PHYSICAL EXAMINATION: VITAL SIGNS: BP 113/74 Pulse 88 Temp (Src) 97.4 (Temporal) Ht 5' 1.5 (1.56m) Wt 127 lb 8 oz (57.8kg) SpO2 96% BMI 23.70 kg/(m^2). GENERAL APPEARANCE: Well appearing, in no acute distress, alert and oriented x3, well-hydrated, well nourished. No palpable adenopathy. I spent a total of 30 minutes on the date of the service which included preparing to see the patient, [id number] patient care, completing clinical documentation, obtaining and/or reviewing separately obtained history, performing a medically appropriate examination, counseling and educating the patient/family/caregiver, ordering medications, tests, or procedures, independently interpreting results (not separately reported), and communicating results to the patient/family/caregiver. Electronically Signed: Jeevan Johnson MD January 25, 2023 10:52 AM documented in this encounter [facility] 01-25-2023 History of Presen t illness Narrative Radiology Service Progress Note PATIENT NAME: Jonelle Coronado DATE OF SERVICE: January 25, 2023 TIME: 10:15 AM PATIENT IDENTITY VERIFICATION COMPLETED USING TWO (2) IDENTIFIERS: Name and Date of confirmed by patient verbally. FALL SCREENING: Has the patient had 2 falls in the last year or 1 fall with injury or currently using an Ambulatory Assistive Device (Walker, Cane, Wheelchair, Crutches, etc.)? No PATIENT GENDER DATA: Female. status: : No status: NO. PATIENT RELEVANT IMPLANT DATA REVIEWED: Yes RADIOLOGY DEPARTMENT: General X-ray: Exam(s) Completed: Chest X-Ray PERIPHERAL IV DATA: Not applicable SIGNED BY: RT Radha(Arely) January 25, 2023 10:15 AM documented in this encounter [facility] 08-30-2022 Miscellaneous Notes Patient has been identified by name and date of : Yes Last office visit in this department: Visit date not found RX INSTRUCTIONS: Patient aware RX will be sent to pharmacy. No need to notify patient. Patient phones requesting refills as follows: Requested Prescriptions Pending Prescriptions Disp Refills hydrocortisone (CORTEF) 10 mg tablet 90 tablet 5 Simg orally 7 AM & 10mg orally 7 PM. Please review and advise. Lilly Walsh documented in this encounter [facility] 08-19-2022 Note HNO ID: [id number] Author: RT Marylin(R) Service: Nuclear Medicine Author Type: Technologist Type: Progress Notes Filed: 08/19/2022 10:16 AM Note Text: Radiology Service Progress Note PATIENT NAME: Jonelle Coronado DATE OF SERVICE: August 19, 2022 TIME: 10:06 AM PATIENT IDENTITY VERIFICATION COMPLETED USING TWO (2) IDENTIFIERS: Name and Date of confirmed by patient verbally. FALL SCREENING: Has the patient had 2 falls in the last year or 1 fall with injury or currently using an Ambulatory Assistive Device (Walker, Cane, Wheelchair, Crutches, etc.)? No PATIENT GENDER DATA: Female. status: : No status: NO. PATIENT RELEVANT IMPLANT DATA REVIEWED: Not Applicable RADIOLOGY DEPARTMENT: General X-ray: Exam(s) Completed: Upper Extremity X-Ray(s): Wrist, right PERIPHERAL IV DATA: Not applicable SIGNED BY: RT Marylin(R) August 19, 2022 10:06 AM [facility] 08-19-2022 History of Presen t illness Narrative Radiology Service Progress Note PATIENT NAME: Jonelle Coronado DATE OF SERVICE: August 19, 2022 TIME: 10:06 AM PATIENT IDENTITY VERIFICATION COMPLETED USING TWO (2) IDENTIFIERS: Name and Date of confirmed by patient verbally. FALL SCREENING: Has the patient had 2 falls in the last year or 1 fall with injury or currently using an Ambulatory Assistive Device (Walker, Cane, Wheelchair, Crutches, etc.)? No PATIENT GENDER DATA: Female. status: : No status: NO. PATIENT RELEVANT IMPLANT DATA REVIEWED: Not Applicable RADIOLOGY DEPARTMENT: General X-ray: Exam(s) Completed: Upper Extremity X-Ray(s): Wrist, right PERIPHERAL IV DATA: Not applicable SIGNED BY: RT Marylin(R) August 19, 2022 10:06 AM documented in this encounter [facility] 07-23-2022 Note HNO ID: [id number] Author: RT Sally(R) Service: ? Author Type: Technologist Type: Progress Notes Filed: 07/23/2022 3:10 PM Note Text: Radiology Service Progress Note PATIENT NAME: Jonelle Coronado DATE OF SERVICE: July 23, 2022 TIME: 3:10 PM PATIENT IDENTITY VERIFICATION COMPLETED USING TWO (2) IDENTIFIERS: Name and Date of confirmed by patient verbally. FALL SCREENING: Has the patient had 2 falls in the last year or 1 fall with injury or currently using an Ambulatory Assistive Device (Walker, Cane, Wheelchair, Crutches, etc.)? No PATIENT GENDER DATA: Female. status: : No status: NO. PATIENT RELEVANT IMPLANT DATA REVIEWED: Not Applicable RADIOLOGY DEPARTMENT: General X-ray: Exam(s) Completed: Upper Extremity X-Ray(s): Forearm, right and Wrist, right PERIPHERAL IV DATA: Not applicable SIGNED BY: RT Sally(R) July 23, 2022 3:10 PM [facility] 07-23-2022 History of Presen t illness Narrative Radiology Service Progress Note PATIENT NAME: Jonelle Coronado DATE OF SERVICE: July 23, 2022 TIME: 3:10 PM PATIENT IDENTITY VERIFICATION COMPLETED USING TWO (2) IDENTIFIERS: Name and Date of confirmed by patient verbally. FALL SCREENING: Has the patient had 2 falls in the last year or 1 fall with injury or currently using an Ambulatory Assistive Device (Walker, Cane, Wheelchair, Crutches, etc.)? No PATIENT GENDER DATA: Female. status: : No status: NO. PATIENT RELEVANT IMPLANT DATA REVIEWED: Not Applicable RADIOLOGY DEPARTMENT: General X-ray: Exam(s) Completed: Upper Extremity X-Ray(s): Forearm, right and Wrist, right PERIPHERAL IV DATA: Not applicable SIGNED BY: RT Sally(R) July 23, 2022 3:10 PM documented in this encounter [facility] 07-19-2022 Miscellaneous Notes Sent e-mail to [facility] leadership regarding this. Patient states she left office visit today without being seen. She states she does not want her insurance billed for OV. documented in this encounter [facility] 07-19-2022 Note HNO ID: [id number] Author: Robin Fried APRN.DIE CUTTER Service: ? Author Type: Nurse Practitioner Type: Progress Notes Filed: 07/19/2022 11:26 AM Note Text: Pt. left without being seen. Robin Fried APRN.CNP [facility] 07-19-2022 History of Presen t illness Narrative Pt. left without being seen. Robin Fried APRN.CNP documented in this encounter [facility] 07-13-2022 Note HNO ID: [id number] Author: RT Abel(R) Service: ? Author Type: Inking Machine Tender Type: Progress Notes Filed: 07/13/2022 1:59 PM Note Text: Radiology Service Progress Note PATIENT NAME: Jonelle Coronado DATE OF SERVICE: July 13, 2022 TIME: 1:59 PM PATIENT IDENTITY VERIFICATION COMPLETED USING TWO (2) IDENTIFIERS: Name and Date of confirmed by patient verbally. FALL SCREENING: Has the patient had 2 falls in the last year or 1 fall with injury or currently using an Ambulatory Assistive Device (Walker, Cane, Wheelchair, Crutches, etc.)? No PATIENT GENDER DATA: Female. status: : No status: NO. PATIENT RELEVANT IMPLANT DATA REVIEWED: Yes RADIOLOGY DEPARTMENT: CT; Exam(s) Completed: Chest PERIPHERAL IV DATA: Not applicable SIGNED BY: RT Brittanie(R) July 13, 2022 1:59 PM [facility] 07-13-2022 History of Presen t illness Narrative Radiology Service Progress Note PATIENT NAME: Jonelle Coronado DATE OF SERVICE: July 13, 2022 TIME: 1:59 PM PATIENT IDENTITY VERIFICATION COMPLETED USING TWO (2) IDENTIFIERS: Name and Date of confirmed by patient verbally. FALL SCREENING: Has the patient had 2 falls in the last year or 1 fall with injury or currently using an Ambulatory Assistive Device (Walker, Cane, Wheelchair, Crutches, etc.)? No PATIENT GENDER DATA: Female. status: : No status: NO. PATIENT RELEVANT IMPLANT DATA REVIEWED: Yes RADIOLOGY DEPARTMENT: CT; Exam(s) Completed: Chest PERIPHERAL IV DATA: Not applicable SIGNED BY: RT Brittanie(R) July 13, 2022 1:59 PM documented in this encounter [facility] 03-01-2022 Miscellaneous Notes Patient's request for medication is as follows Requested Prescriptions Signed Prescriptions Disp Refills hydrocortisone (CORTEF) 10 mg tablet 90 tablet 5 Simg orally 7 AM & 10mg orally 7 PM. Authorizing Provider: ELIUD MAYA Order entered - please phone pharmacy and notify patient. Eliud Maya MD Patient has been identified by name and date of : Yes, Provider FRANCESCO Patient phones for refill(s): Requested Prescriptions Pending Prescriptions Disp Refills hydrocortisone (CORTEF) 10 mg tablet 90 tablet 5 Simg orally 7 AM & 10mg orally 7 PM. Date of last office visit in primary care: 01/13/22 Last 2 Encounter Wt Readings: Date: Wt: 01/13/2022 59.4 kg (131 lb) 07/14/2021 56.5 kg (124 lb 8 oz) Previous labs/tests for medication: Not applicable Please advise. Thank you. Kayla Gibson documented in this encounter [facility] 01-13-2022 History of Presen t illness Narrative PATIENT NAME: Jonelle Coronado. CLINIC NO: [id number]. ATTENDING PHYSICIAN: Eliud Maya MD. DATE OF SERVICE: 01/13/2022 DIAGNOSIS: Metastatic (stage IV) lung cancer; bilateral adrenal metastasis and isolated brain metastasis- in complete remission. 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 Patient had recurrent abdominal pain for several months. The adrenal masses were incidentally discovered during evaluation for an abdominal pain. A heterogeneous and enhancing right adrenal mass and two other smallerl nodules were found on CT scan. On MRI the right adrenal mass which measured 5.0 x 3.1 x 6.7 cm contained foci of T2 signal intensity and with no signal droptout on opposed phase intensity.On the left were two adrenal masses ( an adrenal tumor having 2.7 x 1.2 cm, and another mass 1.3 x 1.0 cm ), both demonstrated signal dropout on opposed phase imaging which define lipid rich adenomas A Chest CT revealed a 1.3 cm pleural-based spiculated nodule in the posterior left apex that is suspicious for a primary bronchogenic Ca. Initial biochemical studies revealed a 24 hr urinary normetanephrine of 277 ug and plasma free NMN of 123 pg/mL. A 24 hour urinary VMA was 3.3 mg. A plasma cortisol was 16.4 ng/dL (no concomitant ACTH). Clinically, she has not had any signs and symptoms suggestive of either catecholamine excess or adrenal cortisol dysfunction. She denied any signs and symptoms suggestive of angina, CHF, cardiac arrhythmia, TIA stroke or PAD. She has had a CABG in September 2013 and had no problems cardiovascular-wiise. She is also taking aspirin and Plavix. Patient was recently discharged from the hospital for acute pancreatitis. Patient has no history of alcohol abuse, or gallstone. Patient has a 5 pound weight loss in the last 2 months, she has chronic nonproductive cough no hemoptysis or shortness of breath. Her performance status remained stable. Patient has no headaches or neurological symptom. CT-guided biopsy of the adrenal metastasis. Pathology indicates non-small cell, squamous cell, carcinoma. Previous treatment therapy: Gamma Knife Stereotactic Radiosurgery for isolated brain metastasis on 09/30/14. Carboplatin/Taxol x 4 ( 09/24/2014 - 12/16/2014 ) with partial response ( < 30% ) Nivolumab ( December 2015- November 2017 ) Interim history: She is doing well without complaint. She has no chest pain, cough or shortness of breath. No unexplained weight loss or increased fatigue. No headaches or neurological symptoms. She still smokes about 1 pack of cigarettes per day. All medications & allergies updated and reviewed by me. REVIEW OF SYSTEMS Appetite: Good, Energy level: Fair Denies fevers Mouth:denies sores Resp:denies cough or sob or chest pain Cardiac:denies palpitations GI:denies abd pain, no nausea or vomiting, no diarrhea :denies dysuria/hematuria Extrem:denies pain currently Neuro: neuropathy both feet has improved. Skin:denies rashes/lesions Heme:denies bleeding The ROS is otherwise negative. Past medical history, appointments, medications, allergies & KP score reviewed. No changes. EXAM: APPEARANCE thin appearing, alert, in no acute distress, well-hydrated Performance status: 100% BP 126/85 Pulse 104 Temp (Src) 98.4 (Temporal) Wt 131 lb (59.4kg) SpO2 94% MOUTH no mucositis HEART sinus rhythm with normal S1 and S2, no murmurs, no gallops, no JVD appreciated LUNG clear to auscultation, no wheezing, rales or rhonchi. LYMPH NODES No cervical lymphadenopathy, No supraclavicular lymphadenopathy and No axillary lymphadenopathy. ABDOMEN bowel sounds normoactive, no bruits, soft, non-tender, non-distended, without organomegaly or palpable masses EXTREMITIES No edema NEURO Awake, alert and oriented x 3, Normal gait and No involuntary motions. Decreased deep tendon reflex SKIN Skin color, texture, turgor normal, no suspicious rashes or lesions. LABS: Component Latest Ref Rng & Units 01/13/2022 WBC 3.70 - 11.00 k/uL 12.18 (H) RBC 3.90 - 5.20 m/uL 4.70 Hemoglobin 11.5 - 15.5 g/dL 14.4 Hematocrit 36.0 - 46.0 % 43.2 MCV 80.0 - 100.0 fL 91.9 MCH 26.0 - 34.0 pg 30.6 MCHC 30.5 - 36.0 g/dL 33.3 RDW-CV 11.5 - 15.0 % 13.2 Platelet Count 150 - 400 k/uL 255 MPV 9.0 - 12.7 fL 9.9 Neut% % 61.3 Abs Neut (ANC) 1.45 - 7.50 k/uL 7.46 Lymph% % 28.8 Abs Lymph 1.00 - 4.00 k/uL 3.51 [place]% % 7.1 Abs [place] <0.87 k/uL 0.86 Eosin% % 2.1 Abs Eosin <0.46 k/uL 0.26 Baso% % 0.4 Abs Baso <0.11 k/uL 0.05 Immature Gran % % 0.3 IMMATURE GRANS (ABS) <0.10 k/uL 0.04 NRBC /100 WBC 0.0 Absolute nRBC <0.01 k/uL <0.01 DTYPE Auto Component Latest Ref Rng & Units 01/13/2022 Protein, Total 6.3 - 8.0 g/dL 6.8 Albumin 3.9 - 4.9 g/dL 3.9 Calcium 8.5 - 10.2 mg/dL 9.2 Bilirubin, Total 0.2 - 1.3 mg/dL <0.2 (L) Alkaline Phosphatase 34 - 123 U/L 66 AST 13 - 35 U/L 11 (L) ALT 7 - 38 U/L 14 Glucose 74 - 99 mg/dL 111 (H) BUN 7 - 21 mg/dL 21 Creatinine 0.58 - 0.96 mg/dL 0.87 Sodium 136 - 144 mmol/L 137 Potassium 3.7 - 5.1 mmol/L 4.0 Chloride 97 - 105 mmol/L 104 CO2 22 - 30 mmol/L 23 Anion Gap 9 - 18 mmol/L 10 eGFR >=60 mL/min/1.73m 73 CXR: Stable exam without acute findings. ASSESSMENT: 1. Cancer of trachea, bronchus, and lung, left (HCC) - ICD9: 162.8, ICD10: C34.82 (primary diagnosis) -stable left upper lobe nodule. RADHA. 2. Brain metastasis (HCC) - ICD9: 198.3, ICD10: C79.31- neurologically stable. 3. Bilateral adrenal metastasis-resolved in complete remission, but she still has secondary adrenal insufficiency 4. COPD /emphysema & tobacco addiction. 5. CAD & peripheral vascular disease -symptoms improved with cilostazol & started REPATHA SURECLICK injection for hyperlipidemia PLAN: -Continue observation & I encourage patient to stop smoking and follow-up with PCP -Continue hydrocortisone replacement therapy for secondary adrenal insufficiency. -Repeat CBC, CMP, and CT chest & OV in 6 months. Portions of this documentation were copied and pasted from previous office visit notes in order to provide a cohesive continuity of the history. The note has been reviewed and edited and updated as necessary. Eliud Maya MD Cc: Steven Chow MD documented in this encounter [facility] 09-07-2021 Miscellaneous Notes Patient's request for medication is as follows Signed Prescriptions Disp Refills hydrocortisone (CORTEF) 10 mg tablet 90 tablet 5 Simg orally 7 AM & 10mg orally 7 PM. SABINE: No Authorizing Provider: ELIUD MAYA Order entered - please phone pharmacy and notify patient. Eliud Maya MD Patient has been identified by name and date of : Yes Last office visit in this department: Visit date not found RX INSTRUCTIONS: Patient aware RX will be sent to pharmacy. No need to notify patient. Patient phones requesting refills as follows: Pending Prescriptions Disp Refills HYDROCORTISONE 10 MG TABLET 90 tablet 5 Simg orally 7 AM & 10mg orally 7 PM. SABINE: No Please review and advise. Carmen Martinez documented in this encounter [facility] 07-14-2021 History of Presen t illness Narrative PATIENT NAME: Jonelle Coronado. CLINIC NO: [id number]. ATTENDING PHYSICIAN: Eliud Maya MD. DATE OF SERVICE: 07/14/2021 DIAGNOSIS: Metastatic (stage IV) lung cancer; bilateral adrenal metastasis and isolated brain metastasis- in complete remission. 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 Patient had recurrent abdominal pain for several months. The adrenal masses were incidentally discovered during evaluation for an abdominal pain. A heterogeneous and enhancing right adrenal mass and two other smallerl nodules were found on CT scan. On MRI the right adrenal mass which measured 5.0 x 3.1 x 6.7 cm contained foci of T2 signal intensity and with no signal droptout on opposed phase intensity.On the left were two adrenal masses ( an adrenal tumor having 2.7 x 1.2 cm, and another mass 1.3 x 1.0 cm ), both demonstrated signal dropout on opposed phase imaging which define lipid rich adenomas A Chest CT revealed a 1.3 cm pleural-based spiculated nodule in the posterior left apex that is suspicious for a primary bronchogenic Ca. Initial biochemical studies revealed a 24 hr urinary normetanephrine of 277 ug and plasma free NMN of 123 pg/mL. A 24 hour urinary VMA was 3.3 mg. A plasma cortisol was 16.4 ng/dL (no concomitant ACTH). Clinically, she has not had any signs and symptoms suggestive of either catecholamine excess or adrenal cortisol dysfunction. She denied any signs and symptoms suggestive of angina, CHF, cardiac arrhythmia, TIA stroke or PAD. She has had a CABG in September 2013 and had no problems cardiovascular-wiise. She is also taking aspirin and Plavix. Patient was recently discharged from the hospital for acute pancreatitis. Patient has no history of alcohol abuse, or gallstone. Patient has a 5 pound weight loss in the last 2 months, she has chronic nonproductive cough no hemoptysis or shortness of breath. Her performance status remained stable. Patient has no headaches or neurological symptom. CT-guided biopsy of the adrenal metastasis. Pathology indicates non-small cell, squamous cell, carcinoma. Previous treatment therapy: Gamma Knife Stereotactic Radiosurgery for isolated brain metastasis on 09/30/14. Carboplatin/Taxol x 4 ( 09/24/2014 - 12/16/2014 ) with minimal response ( < 30% ) Nivolumab ( December 2015- November 2017 ) Interim history: She is doing well without complaint. She has no chest pain, cough or shortness of breath. No unexplained weight loss or increased fatigue. No headaches or neurological symptoms. She still smokes about 1 pack of cigarettes per day. All medications & allergies updated and reviewed by me. REVIEW OF SYSTEMS Appetite: Good, Energy level: Fair Denies fevers Mouth:denies sores Resp:denies cough or sob or chest pain Cardiac:denies palpitations GI:denies abd pain, no nausea or vomiting, no diarrhea :denies dysuria/hematuria Extrem:denies pain currently Neuro: neuropathy both feet has improved. Skin:denies rashes/lesions Heme:denies bleeding The ROS is otherwise negative. Past medical history, appointments, medications, allergies & KP score reviewed. No changes. EXAM: APPEARANCE thin appearing, alert, in no acute distress, well-hydrated Performance status: 100% BP 100/68 Pulse 90 Temp (Src) 98.3 (Temporal) Ht 5' 2 (1.58m) Wt 124 lb 8 oz (56.5kg) SpO2 95% BMI 22.77 kg/(m^2). MOUTH no mucositis HEART sinus rhythm with normal S1 and S2, no murmurs, no gallops, no JVD appreciated LUNG clear to auscultation, no wheezing, rales or rhonchi. LYMPH NODES No cervical lymphadenopathy, No supraclavicular lymphadenopathy and No axillary lymphadenopathy. ABDOMEN bowel sounds normoactive, no bruits, soft, non-tender, non-distended, without organomegaly or palpable masses EXTREMITIES No edema NEURO Awake, alert and oriented x 3, Normal gait and No involuntary motions. Decreased deep tendon reflex SKIN Skin color, texture, turgor normal, no suspicious rashes or lesions. LABS: Component Latest Ref Rng & Units 07/09/2021 WBC 3.70 - 11.00 k/uL 13.82 (H) RBC 3.90 - 5.20 m/uL 4.94 Hemoglobin 11.5 - 15.5 g/dL 15.6 (H) Hematocrit 36.0 - 46.0 % 46.4 (H) MCV 80.0 - 100.0 fL 93.9 MCH 26.0 - 34.0 pg 31.6 MCHC 30.5 - 36.0 g/dL 33.6 RDW-CV 11.5 - 15.0 % 13.3 Platelet Count 150 - 400 k/uL 266 MPV 9.0 - 12.7 fL 9.4 Neut% % 72.1 Abs Neut (ANC) 1.45 - 7.50 k/uL 9.96 (H) Lymph% % 19.8 Abs Lymph 1.00 - 4.00 k/uL 2.74 [place]% % 5.3 Abs [place] <0.87 k/uL 0.73 Eosin% % 1.7 Abs Eosin <0.46 k/uL 0.24 Baso% % 0.6 Abs Baso <0.11 k/uL 0.08 Immature Gran % % 0.5 IMMATURE GRANS (ABS) <0.10 k/uL 0.07 NRBC /100 WBC 0.0 Absolute nRBC <0.01 k/uL <0.01 DTYPE Auto Component Latest Ref Rng & Units 07/09/2021 Protein, Total 6.3 - 8.0 g/dL 7.6 Albumin 3.9 - 4.9 g/dL 4.1 Calcium 8.5 - 10.2 mg/dL 9.3 Bilirubin, Total 0.2 - 1.3 mg/dL 0.3 Alkaline Phosphatase 34 - 123 U/L 71 AST 13 - 35 U/L 15 Glucose 74 - 99 mg/dL 112 (H) BUN 7 - 21 mg/dL 17 Creatinine 0.58 - 0.96 mg/dL 0.73 Sodium 136 - 144 mmol/L 135 (L) Potassium 3.7 - 5.1 mmol/L 4.2 Chloride 97 - 105 mmol/L 104 CO2 22 - 30 mmol/L 20 (L) Anion Gap 9 - 18 mmol/L 11 ALT 7 - 38 U/L 16 eGFR- eGFR-All Other Races . >60 eGFR >=60 mL/min/1.73m 91 CT CHEST: Comparison: CT chest on 07/11/2020 IMPRESSION: Stable spiculated nodule in the left apex. A few tiny nodules along the major fissures. No new nodules identified. Emphysema. Mildly enlarged right hilar lymph node unchanged. No progressive lymphadenopathy. .ASSESSMENT/PLAN: 1. Cancer of trachea, bronchus, and lung, left (HCC) - ICD9: 162.8, ICD10: C34.82 (primary diagnosis) -stable left upper lobe nodule. RADHA. 2. Brain metastasis (HCC) - ICD9: 198.3, ICD10: C79.31- neurologically stable. 3. 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 5. CAD & peripheral vascular disease -symptoms improved with cilostazol PLAN: -Continue observation & I encourage patient to stop smoking and follow-up with PCP -Continue hydrocortisone replacement therapy for acquired adrenal insufficiency. -Repeat CBC, CMP, and CXR & OV in 6 months. Portions of this documentation were copied and pasted from previous office visit notes in order to provide a cohesive continuity of the history. The note has been reviewed and edited and updated as necessary. Eliud Maya MD Cc: Steven Chow MD documented in this encounter [facility] 07-09-2021 History of Presen t illness Narrative Radiology Service Progress Note DATE OF SERVICE: July 09, 2021 TIME: 12:22 PM PATIENT IDENTITY VERIFICATION COMPLETED USING TWO (2) STANDARD IDENTIFIERS: Name and Date of confirmed by patient verbally. FALL SCREENING: Has the patient had 2 falls in the last year or 1 fall with injury or currently using an Ambulatory Assistive Device (Walker, Cane, Wheelchair, Crutches, etc.)? No PATIENT GENDER DATA: Female. status: : No status: NO. PATIENT RELEVANT IMPLANT DATA REVIEWED: Yes ALLERGIES: Reviewed and unchanged CONTRAST ALLERGY: NO. EXAM: CT -CONTRAST INDUCED NEPHROPATHY RISK FACTORS: Patient age > 60 years CREATININE: Creatinine Date Value Ref Range Status 07/09/2021 0.73 0.58 - 0.96 mg/dL Final 01/15/2021 0.65 0.58 - 0.96 mg/dL Final 07/11/2020 0.70 0.58 - 0.96 mg/dL Final Estimated Glomerular Filtration Rate Date Value Ref Range Status 07/09/2021 91 >=60 mL/min/1.73m Final Comment: Estimated Glomerular Filtration Rate (eGFR) is calculated using the 2020 CKD-EPI creatinine equation. This equation utilizes serum creatinine, sex, and age as parameters. The creatinine assay has traceable calibration to isotope dilution-mass spectrometry. Refer to KDIGO guidelines for clinical interpretation. In patients with unstable renal function, e.g. those with acute kidney injury, the eGFR may not accurately reflect actual GFR. eGFR- Date Value Ref Range Status 01/15/2021 >60 Final P.O.C.T. RESULTS: POC done: Yes, See Lab Tab July 09, 2021 TREATMENT: N/A PERIPHERAL IV DATA: Ambulatory: A peripheral IV was started in the Left hand with a Angio cath: 22 gauge. RADIOLOGY DEPARTMENT: CT; Exam(s) Completed: Chest SIGNATURE: RT Brittanie(R) PATIENT NAME: Jonelle Coronado DATE: July 09, 2021 TIME: 12:22 PM documented in this encounter [facility] documented as of this encounter (statuses as of 07/10/2021) [facility] Narrative* Problem Noted Date Resolved Date Lung cancer, hilus 08/28/2014 12/16/2014 Lung mass 08/28/2014 09/12/2014 documented as of this encounter (statuses as of 07/15/2021) [address]15-2015 History of Past illness Narrative* Problem Noted Date Resolved Date Lung cancer, hilus 08/28/2014 12/16/2014 Lung mass 08/28/2014 09/12/2014 documented as of this encounter (statuses as of 09/07/2021) [facility] Narrative* Problem Noted Date Resolved Date Lung cancer, hilus 08/28/2014 12/16/2014 Lung mass 08/28/2014 09/12/2014 documented as of this encounter (statuses as of 01/14/2022) [facility] Narrative* Problem Noted Date Resolved Date Lung cancer, hilus 08/28/2014 12/16/2014 Lung mass 08/28/2014 09/12/2014 documented as of this encounter (statuses as of 03/01/2022) [address]15-2015 History of Past illness Narrative* Problem Noted Date Resolved Date Lung cancer, hilus 08/28/2014 12/16/2014 Lung mass 08/28/2014 09/12/2014 documented as of this encounter (statuses as of 07/19/2022) [facility] N[facility]ative* Problem Noted Date Resolved Date Lung cancer, hilus 08/28/2014 12/16/2014 Lung mass 08/28/2014 09/12/2014 documented as of this encounter (statuses as of 07/19/2022) [facility] Narrative* Problem Noted Date Resolved Date Lung cancer, hilus 08/28/2014 12/16/2014 Lung mass 08/28/2014 09/12/2014 documented as of this encounter (statuses as of 07/20/2022) [facility] Narrative* Problem Noted Date Diagnosed Date Resolved Date Lung cancer, hilus 08/28/2014 5 Lung mass 08/28/2014 09/12/2014 documented as of this encounter (statuses as of 08/31/2022) [facility]* Problem Noted Date Diagnosed Date Resolved Date Lung cancer, hilus 08/28/2014 5 Lung mass 08/28/2014 09/12/2014 documented as of this encounter (statuses as of 12/19/2022) [facility]ative* Problem Noted Date Diagnosed Date Resolved Date Lung cancer, hilus 08/28/2014 5 Lung mass 08/28/2014 09/12/2014 documented as of this encounter (statuses as of 12/19/2022) [facility]ative* Problem Noted Date Diagnosed Date Resolved Date Lung cancer, hilus 08/28/2014 5 Lung mass 08/28/2014 09/12/2014 documented as of this encounter (statuses as of 01/26/2023) [facility]* Problem Noted Date Diagnosed Date Resolved Date Lung cancer, hilus 08/28/2014 5 Lung mass 08/28/2014 09/12/2014 documented as of this encounter (statuses as of 01/26/2023) [facility] note* Diagnosis Atherosclerosis of campo arteries of extremities with intermittent claudication, bilateral legs (HCC) documented in this encounter [employer] Phone: Evaluation note* Diagnosis Atherosclerosis of campo arteries of extremities with intermittent claudication, bilateral legs (HCC) documented in this encounter [employer] Phone: Evaluation note* Diagnosis Malignant neoplasm of unspecified part of unspecified bronchus or lung (HCC) Adrenal insufficiency (HCC) 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, 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) [facility] Diagnosis Adrenal insufficiency (HCC)- Primary 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, 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) [facility] Diagnosis 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, unspecified laterality (HCC) Malaise and fatigue Other malaise and fatigue Adrenal insufficiency (HCC) Glucocorticoid deficiency [facility] Diagnosis Malignant neoplasm of unspecified part of unspecified bronchus or lung (HCC)- Primary 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, unspecified laterality (HCC) [facility] Diagnosis 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, unspecified laterality (HCC) Malaise and fatigue Other malaise and fatigue Adrenal insufficiency (HCC) Glucocorticoid deficiency documented in this encounter [facility] note* Diagnosis Malignant neoplasm of unspecified part of unspecified bronchus or lung (HCC)- Primary documented in this encounter [facility] note* Diagnosis 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, unspecified laterality (HCC) Malaise and fatigue Other malaise and fatigue Adrenal insufficiency (HCC) Glucocorticoid deficiency documented in this encounter [facility] note* Diagnosis Malignant neoplasm of unspecified part of unspecified bronchus or lung (HCC) 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, unspecified laterality (HCC) documented in this encounter [facility] note* Diagnosis Malignant neoplasm of unspecified part of unspecified bronchus or lung (HCC)- Primary documented in this encounter [facility] note* Diagnosis 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, unspecified laterality (HCC) documented in this encounter [facility] Summary Purpose Family History No Family History Records FoundNo Family History Records FoundNo Family History Records FoundNo Family History Records Found Advance Directives No Advanced Directives Records FoundNo Advanced Directives Records FoundNo Advanced Directives Records FoundNo Advanced Directives Records Found Reason for Referral Status Reason Specialty Diagnoses / Procedures Referre d By Contact Referred To Contact Closed Radiology Diagnoses Atherosclerosis of campo arteries of extremities with intermittent claudication, bilateral legs (HCC) Procedures CTA ABDOMINAL AORTA W BILAT RUNOFF W WO CONTRAST Joey Oglesby MD [address] [facility] [address] [place] [address] Specialty Diagnoses / Procedures Referred By Contac t Referred To Contact CT IMAGING Diagnoses Malignant neoplasm of unspecified part of unspecified bronchus or lung (HCC) Adrenal insufficiency (HCC) 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, 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) Procedures CT CHEST W IVCON CAT SCAN OF CHEST CONTRAST Eliud Maya MD [address] [place] [address] Ct Imaging Referral ID Status Reason Start Date Expiration Date V isits Requested Visits Authorized [id number] Closed Auto-Generate d Referral 07/09/2021 02/14/2022 1 1 Specialty Diagnoses / Procedures Referred By Contac t Referred To Contact CT IMAGING Diagnoses Malignant neoplasm of unspecified part of unspecified bronchus or lung (HCC) 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, unspecified laterality (HCC) Procedures CT CHEST WO IVCON DIAGNOSTIC COMPUTED TOMOGRAPHY THORAX W/O CNTRST Eliud Maya MD [address] [place] [address] Ct Imaging Referral ID Status Reason Start Date Expiration Date Visits Requested Visits Authorized [id number] Authorized Auto-Generat ed Referral 07/13/2022 02/12/2023 1 1 Specialty Diagnoses / Procedures Referred By Contac t Referred To Contact CT IMAGING Diagnoses Malignant neoplasm of unspecified part of unspecified bronchus or lung (HCC) 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, unspecified laterality (HCC) Procedures CT CHEST WO IVCON DIAGNOSTIC COMPUTED TOMOGRAPHY THORAX W/O CNTRST Eliud Maya MD [address] [place] [address] [place] [address] Referral ID Status Reason Start Date Expiration Date V isits Requested Visits Authorized [id number] Closed Auto-Generate d Referral 07/13/2022 02/12/2023 1 1 Specialty Diagnoses / Procedures Referred By Contac t Referred To Contact CT IMAGING Diagnoses Malignant neoplasm of unspecified part of unspecified bronchus or lung (HCC) Procedures CT CHEST WO IVCON DIAGNOSTIC COMPUTED TOMOGRAPHY THORAX W/[place] [address] [place] [address] [place] [address] Referral ID Status Reason Start Date Expiration Date Visits Requested Visits Authorized [id number] Authorized Auto-Generat ed Referral 07/27/2023 02/24/2024 1 1 Additional Source Comments INFORMATION SOURCE (unrecogn ized section and content) DATE CREATED AUTHOR AUTHOR'S ORGANIZ ATION 09/18/2020 [facility] DATE CREATED AUTHOR AUTHOR'S ORGANIZ ATION 01/11/2023 [facility] DATE CREATED AUTHOR AUTHOR'S ORGANIZ ATION 01/27/2023 [facility] Source Comments (unrecognize d section and content) In the event this informatio n is protected by the Federal Confidentiality of Alcohol and Drug Abuse Patient Records regulations: The Federal rules restrict any use of the information to criminally investigate or prosecute any alcohol or drug abuse patient.[facility] the event this information is protected by the Federal Confidentiality of Alcohol and Drug Abuse Patient Records regulations: The Federal rules restrict any use of the information to criminally investigate or prosecute any alcohol or drug abuse patient.[facility] System[facility] the event this information is protected by the Federal Confidentiality of Alcohol and Drug Abuse Patient Records regulations: The Federal rules restrict any use of the information to criminally investigate or prosecute any alcohol or drug abuse patient.[facility] System[facility] the event this information is protected by the Federal Confidentiality of Alcohol and Drug Abuse Patient Records regulations: The Federal rules restrict any use of the information to criminally investigate or prosecute any alcohol or drug abuse patient.[facility] System[facility] the event this information is protected by the Federal Confidentiality of Alcohol and Drug Abuse Patient Records regulations: The Federal rules restrict any use of the information to criminally investigate or prosecute any alcohol or drug abuse patient.[facility] System[facility] the event this information is protected by the Federal Confidentiality of Alcohol and Drug Abuse Patient Records regulations: The Federal rules restrict any use of the information to criminally investigate or prosecute any alcohol or drug abuse patient.[facility] System[facility] the event this information is protected by the Federal Confidentiality of Alcohol and Drug Abuse Patient Records regulations: The Federal rules restrict any use of the information to criminally investigate or prosecute any alcohol or drug abuse patient.[facility] System[facility] the event this information is protected by the Federal Confidentiality of Alcohol and Drug Abuse Patient Records regulations: The Federal rules restrict any use of the information to criminally investigate or prosecute any alcohol or drug abuse patient.[facility] System[facility] the event this information is protected by the Federal Confidentiality of Alcohol and Drug Abuse Patient Records regulations: The Federal rules restrict any use of the information to criminally investigate or prosecute any alcohol or drug abuse patient.[facility] System[facility] the event this information is protected by the Federal Confidentiality of Alcohol and Drug Abuse Patient Records regulations: The Federal rules restrict any use of the information to criminally investigate or prosecute any alcohol or drug abuse patient.[facility] System[facility] the event this information is protected by the Federal Confidentiality of Alcohol and Drug Abuse Patient Records regulations: The Federal rules restrict any use of the information to criminally investigate or prosecute any alcohol or drug abuse patient.[facility] System[facility] the event this information is protected by the Federal Confidentiality of Alcohol and Drug Abuse Patient Records regulations: The Federal rules restrict any use of the information to criminally investigate or prosecute any alcohol or drug abuse patient.[facility] System[facility] the event this information is protected by the Federal Confidentiality of Alcohol and Drug Abuse Patient Records regulations: The Federal rules restrict any use of the information to criminally investigate or prosecute any alcohol or drug abuse patient.[facility] System[facility] the event this information is protected by the Federal Confidentiality of Alcohol and Drug Abuse Patient Records regulations: The Federal rules restrict any use of the information to criminally investigate or prosecute any alcohol or drug abuse patient.[facility] Reason for Visit (unrecogniz ed section and content) Specialty Diagnoses / Procedures Referred By Contac t Referred To Contact CT IMAGING Diagnoses Malignant neoplasm of unspecified part of unspecified bronchus or lung (HCC) Adrenal insufficiency (HCC) 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, 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) Procedures CT CHEST W IVCON CAT SCAN OF CHEST CONTRAST Eliud Maya MD [address] [facility] [place] [place] [address] Ct Imaging Referral ID Status Reason Start Date Expiration Date V isits Requested Visits Authorized [id number] Closed Auto-Generate d Referral 07/09/2021 02/14/2022 1 1 Reason Comments Established Patient Reason Comments Refill Request Reason Comments Established Patient Reason Onset Date Comments Refill Request 03/01/2022 Reason Comments Appointment Reason Onset Date Comments Refill Request 08/30/2022 Specialty Diagnoses / Procedures Referred By Sukumar t Referred To Contact CT IMAGING Diagnoses Malignant neoplasm of unspecified part of unspecified bronchus or lung (HCC) 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, unspecified laterality (HCC) Procedures CT CHEST WO IVCON DIAGNOSTIC COMPUTED TOMOGRAPHY THORAX W/O CNTRST Eliud [place] [address] [place] [address] Referral ID Status Reason Start Date Expiration Date V isits Requested Visits Authorized [id number] Closed Auto-Generate d Referral 07/13/2022 02/12/2023 1 1 Care Teams (unrecognized sec tion and content) Toilet Attendant Relationship Specialty Start Date End Date Steven Chow MD PCP - General Family Practice 06/07/14 Toilet Attendant Relationship Specialty Start Date End Date Steven Chow MD PCP - General Family Practice 06/07/14 Toilet Attendant Relationship Specialty Start Date End Date Steven Chow MD PCP - General Family Medicine 06/07/14 Toilet Attendant Relationship Specialty Start Date End Date Steven Chow MD PCP - General Family Medicine 06/07/14 Toilet Attendant Relationship Specialty Start Date End Date Steven Chow MD PCP - General Family Medicine 06/07/14 Toilet Attendant Relationship Specialty Start Date End Date Steven Chow MD PCP - General Family Medicine 06/07/14 Toilet Attendant Relationship Specialty Start Date End Date Steven Chow MD PCP - General Family [facility] 06/07/14 Toilet Attendant Relationship Specialty Start Date End Date Steven Chow MD [facility] 06/07/14 Toilet Attendant Relationship Specialty Start Date End Date Steven Chow MD [facility] 06/07/14 Toilet Attendant Relationship Specialty Start Date End Date Steven Chow MD [facility] 06/07/14 Toilet Attendant Relationship Specialty Start Date End Date Steven Chow MD [facility] 06/07/14 Toilet Attendant Relationship Specialty Start Date End Date Steven Chow MD [facility] 06/07/14 Toilet Attendant Relationship Specialty Start Date End Date Steven Chow MD [facility] 06/07/14 FOR RECORDS PERTAINING TO PATIENTS WHO ARE OR HAVE BEEN ENROLLED IN A CHEMICAL DEPENDENCY/SUBSTANCEABUSE PROGRAM, SOME INFORMATION MAY BE OMITTED. This clinical summary was aggregated from multiple sources. Caution should be exercised in using it in the provision of clinical care. This summary normalizes information from multiple sources, and as a consequence, information in this document may materially change the coding, format and clinical context of patient data. In addition, data may be omitted in some cases. CLINICAL DECISIONS SHOULD BE BASED ON THE PRIMARY CLINICAL RECORDS. [facility] [employer] [facility]. provides no warranty or guarantee of the accuracy or completeness of information in this document.
[2023-02-04 03:20] LABS: Absolute Lymphocyte Count 3.96 X10^3/uL (0.83-4.51); Absolute Neutrophil Count 8.5 X10^3/uL (2.0-7.7); Basophil# 0.07 X10^3/uL; Basophil% 0.5 % (0-1); Eosinophil# 0.05 X10^3/uL; Eosinophils% 0.4 % (0-5); Hematocrit 45.9 % (37-47); Hemoglobin 14.4 g/dL (12.0-15.0); Lymphocyte # 3.96 X10^3/ul (0.83-4.51); Lymphocyte % 27.9 % (19-41); Mean Corp Hgb Conc 31.4 g/dL (32-36); Mean Corpuscular Hgb 30.4 pg (27.0-32.0); Monocyte# 1.47 X10^3/uL; Monocyte% 10.4 % (0-10); NRBC Flagged by Analyzer 0 % (0-5); Neutrophil # 8.53 X10^3/uL (2.7-7.7); Neutrophil % 60.2 % (47-70); Platelet Count 279 K/mm3 (150-450); RBC Distribution Width CV 14.1 % (11.6-14.6); RBC Distribution Width SD 51.1 fl (35.1-43.9); Red Blood Count 4.73 M/mm3 (4.2-5.4); White Blood Count 14.2 K/mm3 (4.4-11.0)
[2023-02-04 03:29] LABS: Allen Test Positive; Base Excess -3 mmol/L (-2 to +2); Bicarbonate 25.5 mmol/L (22-26); Blood Gas Specimen Type ART; Mode Not entered; O2 Delivery Device BiPAP; PO2 67 mmHG (75-100); RR 12; SITE R Radial; SO2 86 % (95-99); Total Carbon Dioxide 28 mmol/L; pCO2 72.4 mmHg (35-45); pH 7.16 (7.35-7.45)
--- NOTE | 2023-02-04 03:33 | RAD_ITS ---
EXAM: XR CHEST, 1 VIEW CLINICAL INDICATION: Dyspnea TECHNIQUE: Frontal view of the chest. COMPARISON: 02/03/2023. FINDINGS: LUNGS AND PLEURAL SPACES: Thickening of the interlobular septa likely due to interstitial edema which is new since the previous exam. Slight right pleural effusion. No pneumothorax. HEART: Unremarkable. Cardiac silhouette not enlarged. MEDIASTINUM: Central airways and mediastinal contour are unremarkable. BONES/JOINTS: Sternal wires. No acute fracture. SOFT TISSUES: Unremarkable. RAD/Chest 1 View (Portable) IMPRESSION: 1. Thickening of the interlobular septa likely due to interstitial edema which is new since the previous exam. 2. Slight right pleural effusion. Electronically Signed: Bakari Bledsoe MD at 3:49 EST ,
--- NOTE | 2023-02-04 03:35 | CPS ---
Critical ABG values, Dr. Griffin aware.
[2023-02-04] MEDS: Ipratropium/Albuterol Sulfate 3 ML AMPUL.NEB INHALATION ×2 (03:41→19:03)
[2023-02-04 03:43] LABS: Anion Gap 7 (5-15); BUN 8 mg/dL (7-18); BUN/Creat Ratio 7.5 RATIO (10-20); Calcium,Total 8.3 mg/dL (8.5-10.1); Chloride 106 mmol/L (98-107); Creatinine, Serum 1.06 mg/dL (0.55-1.02); EST Glomerular Filtration Rate 55 mL/min (>60); Est Glom Filt Rate - Afr Amer 66 mL/min (>60); Estimated Creatinine Clearance 40.17 ml/min; Glucose 236 mg/dL (74-106); Potassium 4.3 mmol/L (3.5-5.1); Sodium Level 138 mmol/L (136-145); Troponin-I HS 128 pg/mL (3.0-54.0)
[2023-02-04 04:01] LABS: International Normalized Ratio 1.1; Prothrombin Time (Protime)PT. 13.7 SECONDS (11.7-14.9)
[2023-02-04 04:03] LABS: Partial Thromboplast Time 28.7 Seconds (24.1-36.2)
[2023-02-04 04:08] LABS: Lactic Acid 1.6 mmol/L (0.4-1.9)
[2023-02-04 04:12] LABS: Mucous, Urine 0 SEEN /hpf (<or=2+)
[2023-02-04 04:15] LABS: Color, Urine Yellow (Yellow); Glucose, Dipstick Normal (Normal); Ketone-Dipstick Negative (Negative); Leukocyte Esterase-Dipstick 100 /ul (Negative); Nitrite-Dipstick Negative (Negative); Occult Blood-Urine 250 /ul (Negative); Protein-Dipstick 100 mg/dl (Negative); Specific Gravity, Urine 1.025 (1.002-1.030); Urine Bilirubin Dipstick Negative (Negative); Urine Clarity Clear (Clear); Urine Urobilinogen Normal (Normal)
[2023-02-04 04:18] LABS: D-Dimer Quantitative (DVT/PE) 2.08 FEU/ug/m (0.27-0.49)
--- NOTE | 2023-02-04 04:19 | CT_ITS ---
EXAM: CT ANGIOGRAPHY CHEST WITHOUT AND WITH INTRAVENOUS CONTRAST CLINICAL INDICATION: Pulmonary embolism TECHNIQUE: Helically acquired angiography images were obtained of the chest without and with intravenous contrast. This CT exam was performed using one or more of the following dose reduction techniques: automated exposure control, adjustment of the mA and/or kV according to patient size, and/or use of iterative reconstruction technique. MIP reconstructed images were created and reviewed. CONTRAST: 75 cc of Isovue-370 IV. RADIATION DOSE: CTDIvol = 13.54 mGy, DLP = 395.76 mGy-cm COMPARISON: 02/17/2020. FINDINGS: PULMONARY ARTERIES: Unremarkable. Normal in caliber. No evidence of pulmonary embolism. AORTA: Unremarkable. Normal in caliber. No evidence of dissection. GREAT VESSELS OF AORTIC ARCH: Unremarkable. Normal in caliber. No evidence of dissection. LUNGS AND PLEURAL SPACES: Spiculated pleural-based lesion measuring 1 cm left superior sulcus. Diffuse bronchial wall thickening bilaterally with scattered areas of mucus plugging bilaterally. Small foci of tree-in-bud nodular opacities in the apical posterior segment and the anterior segment of the left upper lobe may represent small foci of infection. Emphysema. Subsegmental atelectasis in the lingula. No pneumothorax. HEART: Coronary artery calcifications. Status post coronary artery bypass graft. Heart size is normal. No pericardial effusion. MEDIASTINUM: Unremarkable. No mediastinal or hilar adenopathy. Esophagus is unremarkable. No hiatal hernia. THYROID: Unremarkable. No thyroid lesions. BONES/JOINTS: Unremarkable. No suspicious lytic or blastic abnormality. TUBES, LINES AND DEVICES: Sternal wires. CT/CTA Chest W/WO Contrast IMPRESSION: 1. No pulmonary embolism or dissection. 2. Diffuse bronchial wall thickening bilaterally with scattered areas of mucus plugging bilaterally. 3. Spiculated pleural-based lesion measuring 1 cm left superior sulcus. Fleischner Society Guidelines recommend a follow-up chest CT in 6-12 months in patients with a low or high risk of malignancy. 4. Small foci of tree-in-bud nodular opacities in the apical posterior segment and the anterior segment of the left upper lobe may represent small foci of infection. 5. Emphysema. 6. Coronary artery disease. 7. Subsegmental atelectasis in the lingula. Electronically Signed: Bakari Bledsoe MD at 6:04 EST ,
[2023-02-04 04:27] LABS: Allen Test Positive; Base Excess -3 mmol/L (-2 to +2); Bicarbonate 25.2 mmol/L (22-26); Blood Gas Specimen Type ART; Mode Not entered; O2 Delivery Device BiPAP; PEEP 12; PO2 77 mmHG (75-100); RR 14; SITE L Radial; SO2 92 % (95-99); Total Carbon Dioxide 27 mmol/L; pH 7.22 (7.35-7.45)
--- NOTE | 2023-02-04 04:37 | PCM.HP.STD ---
[facility] - [facility] General Date of Service: 02/04/23 Chief Complaint: Severe shortness of breath HPI Narrative ANDIE CORONADO, is a 67 F with a past medical history of essential hypertension, hyperlipidemia; with intolerance to statins which cause myalgias, chronic ongoing tobacco abuse, coronary artery disease; status post CABG x 3 (2013) with subsequent stents (2013 and 2019), history of STEMI; on chronic baby aspirin and ticagrelor, history of cardiomyopathy; with history of cardiogenic shock, history of torsade de pointes, history of left carotid stenosis, peripheral arterial disease, history of squamous cell carcinoma of the left lung, history of GI bleed, adrenal insufficiency, osteoarthritis and recently diagnosed RSV pneumonitis during her ER visit on 02/03/2023 with patient subsequently discharged home who re-presents to [facility] ER complaining of severe shortness of breath. Ms. Coronado is not a fully reliable historian at this time as she is extremely lethargic and acidotic on BiPAP with labored respirations so information was gathered from chart, medical staff and computer. EMS records also show that the patient was nonverbal for them and they administered Solu-Medrol for acute severe bronchospasm. According to the records she developed the abrupt onset of shortness of breath that became much worse today in spite of being started on home oxygen, nebulizers and prednisone. In the ER she was noted to have diffuse expiratory wheezes throughout with diminished breath sounds with an initial arterial blood gases showed a pH of 7.155/pCO2 72.4/pO2 66.5/bicarbonate 25.5 with an oxygen saturation of 85% shortly after starting BiPAP with an x-ray that shows hazy right perihilar infiltrate consistent with suspected early bacterial pneumonia superinfection in the setting of acute severe RSV pneumonitis complicated by clinical evidence of acute hypoxic respiratory failure requiring BiPAP with an associated severe metabolic encephalopathy and her second ABG showing a pH of 7.217/pCO2 of 62/pO2 of 77.4/HCO3 of 25.2 with an oxygen saturation of 91.8% still on BiPAP with relatively poor mental status compounded by an elevated initial troponin of 128 pg/mL present on admission with a nonspecific EKG that shows sinus tachycardia 115 bpm with no acute ischemic changes and normal intervals suspected to be due to acute cardiac strain/non-STEMI type II with a critically elevated D-dimer of 2.08 suspicious for acute PE with CTA of the chest pending at this time. She was then admitted to the ICU for ongoing care for stay that is expected to be greater than 48 hours. [facility] Medical History Adrenal insufficiency Anxiety Aspiration pneumonia Atherosclerotic heart disease of [place] coronary artery without angina pectoris Cardiac arrest Cardiogenic shock Cardiomyopathy Carotid stenosis Carotid stenosis, left Chronic obstructive pulmonary disease (COPD) Coronary artery disease Debility Essential hypertension Healthcare associated bacterial pneumonia History of GI bleed History of myocardial infarction Hyperlipidemia Hypokalemia Hypotension Left shoulder pain NSTEMI (non-ST elevated myocardial infarction) PAD (peripheral artery disease) Peripheral vascular insufficiency Squamous cell carcinoma of left lung STEMI (ST elevation myocardial infarction) Tobacco abuse Tobacco use Torsades de pointes Ventricular tachycardia Home Medications lorazepam 1 mg tablet (Ativan) 1 mg PO QHS 04/15/20 [History Last Taken Unknown] hydrocortisone 10 mg tablet 20 mg PO .COMPLEX adrenal insufficiency 02/04/21 [History Last Taken Unknown] diazepam 5 mg tablet 2.5 mg (1/2 x 5 mg) PO Q8 PRN Muscle Spasm #10 tabs 06/17/21 [Rx Last Taken Unknown] cilostazol 50 mg tablet 50 mg PO BID 12/18/21 [History Last Taken Unknown] lisinopril 2.5 mg tablet 2.5 mg PO DAILY #90 tabs 04/05/22 [Rx Last Taken Unknown] evolocumab 140 mg/mL subcutaneous pen injector (Repatha SureClick) 140 mg subcut Q2W #2 mL 05/18/22 [Rx Last Taken Unknown] escitalopram oxalate 20 mg tablet (Lexapro) 20 mg PO DAILY 06/30/22 [History Last Taken Unknown] nitroglycerin 0.4 mg sublingual tablet 0.4 mg sublingual Q5-15M PRN chest pain #25 tabs 06/30/22 [Rx Last Taken Unknown] metoprolol tartrate 25 mg tablet 25 mg PO BID #180 tabs 07/14/22 [Rx Last Taken Unknown] ticagrelor 90 mg tablet 90 mg PO BID blood thinner #180 tabs 08/16/22 [Rx Last Taken Unknown] aspirin 81 mg tablet,delayed release (Adult Low Dose Aspirin) 81 mg PO DAILY 01/03/23 [History Last Taken Unknown] hydrocodone-homatropine 5 mg-1.5 mg/5 mL (5 mL) oral syrup (Hycodan) 5 ml PO Q6H PRN cough 5 days #50 mL 02/03/23 [Rx Last Taken Unknown] prednisone 20 mg tablet 40 mg (2 x 20 mg) PO DAILY 7 days #14 tabs 02/03/23 [Rx Last Taken Unknown] Allergy/AdvReac Type Severity Reaction Status Date / Time acetaminophen [From Vicodin] Allergy Intermediate Itching Verified 02/04/23 03:05 atorvastatin AdvReac Severe Myalgias Verified 02/04/23 03:05 hydrocodone AdvReac Itching Verified 02/04/23 03:05 hydrocodone bitartrate AdvReac Itching Verified 02/04/23 03:05 [From Vicodin] oxycodone HCl [From Percocet] AdvReac Itching Verified 02/04/23 03:05 Family History Mother Heart disease Hypertension CVA (cerebral vascular accident) Surgical History Aortocoronary bypass status (~09/24/13) Hx of appendectomy Hx of tubal ligation Presence of stent in coronary artery (~02/10/20) Social History Smoking Status: Current every day smoker tobacco type: cigarettes quit status: considering quitting alcohol intake: never substance use type: does not use caffeine: Yes what type of physical activity do you participate in: none frequency: does not exercise ROS ROS Narrative Patient is lethargic and encephalopathic on BiPAP with severe shortness of breath so review of systems cannot be completed at this time. Review of Systems ROS Unobtainable: due to encephalopathy Vital Signs Vital Signs Vital Signs: 02/04/23 02:59 02/04/23 03:03 02/04/23 03:31 Temperature 98.8 F 98.8 F Temperature Source Axillary Axillary Pulse Rate 114 H 124 H Respiratory Rate 26 H 36 H Respiratory Effort Short of Breath Accessory Muscle Use Head [place] Respiratory Depth Shallow Respiratory Pattern Tachypnea Blood Pressure 173/102 H 156/92 H Blood Pressure Mean 125 113 Pulse Ox 87 94 Oxygen Delivery Method Nasal Cannula Nasal Cannula Bi-pap Oxygen Flow Rate (L/min) 6 12 Fraction of Inspired Oxygen (FIO2) 45 02/04/23 03:42 02/04/23 03:35 Temperature Temperature Source Pulse Rate 124 H 127 H Respiratory Rate 40 H 42 H Respiratory Effort Respiratory Depth Respiratory Pattern Tachypnea Tachypnea Blood Pressure Blood Pressure Mean Pulse Ox 89 Oxygen Delivery Method Oxygen Flow Rate (L/min) Fraction of Inspired Oxygen (FIO2) 50 Weight Weight: 130 lb 4.691 oz Body Mass Index (BMI) 23.8 Physical Exam Const Constitutional Narrative: Patient is lethargic, confused and listless on BiPAP. Orientation / Consciousness: confused, disoriented and lethargic HEENT normocephalic, head/scalp atraumatic and hearing grossly normal bilaterally HEENT Narrative: Oropharynx dry. Eyes PERRL Neck no lymphadenopathy and supple Resp Resp Narrative: Patient has diffuse inspiratory and expiratory wheezing with diminished breath sounds throughout and very labored respirations on BiPAP with patient still breathing approximately 40 times per minute. Auscultation: wheezes Cardio regular rate and regular rhythm Cardio Narrative: Tachycardia in the 124 bpm range. GI normal to inspection, nondistended, normoactive bowel sounds, soft to palpation, non-tender and non-distended Extremity normal to inspection Skin Skin Narrative: Patient has no evidence of rash at this time. Neuro Neuro Narrative: Patient is lethargic, confused and listless on BiPAP. Psych Psych Narrative: Patient is confused and lethargic and cannot follow any commands. Results Medical Records Data Attestation: I reviewed the patient's medical records Lab / Micro Data Attestation: I reviewed the patient's lab results. 02/04/23 03:04 02/04/23 03:04 Labs: Laboratory Results - last 24 hr 02/04/23 03:04: WBC 14.2 H, RBC 4.73, Hgb 14.4, Hct 45.9, MCV 97.0 D, MCH 30.4, MCHC 31.4 L D, RDW Std Deviation 51.1 H, RDW Coeff of Nehemiah 14.1, Plt Count 279, MPV 11.0, Immature Gran % (Auto) 0.600, Neut % (Auto) 60.2, Lymph % (Auto) 27.9, [place] % (Auto) 10.4 H, Eos % (Auto) 0.4, Baso % (Auto) 0.5, Absolute Neuts (auto) 8.5 H, Absolute Lymphs (auto) 3.96, Nucleated RBC % 0, PT 13.7, INR 1.1, APTT 28.7, D-Dimer Quant (PE/DVT) 2.08 H*, Sodium 138, Potassium 4.3, Chloride 106, Carbon Dioxide 25.0, Anion Gap 7, BUN 8, Creatinine 1.06 H, Estim Creat Clear Calc 40.17, Est GFR (MDRD) Af Amer 66, Est GFR (MDRD) Non-Af 55 L, BUN/Creatinine Ratio 7.5 L, Glucose 236 H, Calcium 8.3 L, Troponin I High Sens 128 H* 02/04/23 03:18: Lactic Acid 1.6 ABG Data ABG results: ABG 02/04/23 02/04/23 03:25 04:23 Specimen Type ART ART Sample Site R Radial L Radial pH 7.16 L* 7.22 L Bicarbonate Actual 25.5 25.2 Total CO2 28 27 Base Excess -3 L -3 L O2 Saturation 86 L 92 L O2 % 48.0 50.0 ABG pCO2 72.4 H* 62.0 H ABG pO2 67 L 77 Zhang Test Positive Positive Respiration Rate 12 14 O2 Delivery Device BiPAP BiPAP Vent Mode Not entered Not entered Tidal Volume 500.0 500.0 POC PEEP 12 Crit Call To/Read Back Yes Attestation: I personally reviewed and interpreted this ABG as follows: Interpretation: Severe acute respiratory acidosis essentially refractory to treatment BiPAP Imagaing Radiology Impression Chest X-Ray 02/04/23 03:33 IMPRESSION: 1. Thickening of the interlobular septa likely due to interstitial edema which is new since the previous exam. 2. Slight right pleural effusion. Electronically Signed: Bakari Bledsoe MD at 3:49 EST , Assessment & Plan Assessment/Plan (1) RSV bronchitis: (2) Secondary bacterial pneumonia: (3) COPD exacerbation: (4) Acute respiratory failure: QUALIFIERS: Respiratory failure complication: hypoxia and hypercapnia Qualified Code(s): J96.01 - Acute respiratory failure with hypoxia; J96.02 - Acute respiratory failure with hypercapnia (5) Elevated troponin I level: (6) Acute metabolic encephalopathy: PLAN: Plan 1. Severe acute RSV pneumonitis complicated by right hilar infiltrate suspected to be due to acute bacterial superinfection with acute hypoxic respiratory failure refractory to treatment with BiPAP - Admit to ICU on contact and droplet precautions. Continue broad-spectrum antibiotics and await culture and sensitivity data. Give Tylenol as needed for pain or fever. Patient in no evidence of sepsis at the time of admission. 2. Elevated troponin of 128 pg/mL present on admission likely due to non-STEMI type II from acute cardiac strain stemming from #1 in the setting of an extensive cardiac history including CABG x3, multiple stents, STEMI and known cardiomyopathy with previous VT/torsades de pointes - Start IV heparin and continue baby aspirin and ticagrelor along with statin. Serialize troponin. Check echocardiogram to evaluate left ventricular ejection fraction. Finally, we will consult seal mixing operator on-call to see this patient on rounds in the a.m. for further recommendations with help appreciated in advance. 3. Acute exacerbation of COPD in the setting of ongoing tobacco abuse compounding #1 & #2 setting of a known history of squamous cell carcinoma of the left lung - Continue IV Solu-Medrol with scheduled and as needed breathing treatments. Tobacco cessation will be strongly encouraged with nicotine patch not placed due to relatively increased risk of coronary artery vasospasm related to #2. 4. Critically elevated D-dimer of 2.08 present on admission suspicious for underlying DVT/PE adding to the pathology of #1 - #3 - Proceed with CTA of the chest ordered in the ER with patient's x-rays not consistent with the degree of acute severe respiratory illness she is manifesting clinically at this time. 5. Severe acute metabolic encephalopathy arising from #1 - #4 - Continue supportive care and monitor for improvement. Check TSH. 6. History of squamous cell carcinoma of the left lung 7. Essential hypertension - Hold scheduled antihypertensives at this time. Give IV hydralazine as needed for systolic blood pressure greater than 160 mmHg. 8. Hyperlipidemia; with intolerance to statins which cause myalgias - Check lipid profile this admission to assess effectiveness of Repatha. 9. History of left carotid stenosis - Noted. Continue antiplatelet therapy as previous. 10. Peripheral arterial disease - Noted. Apparently stable at this time. 11. History of GI bleed - Give Protonix IV in light of high-dose steroids for #3. 12. Adrenal insufficiency - Patient on high-dose Solu-Medrol with stable blood pressures at this time. 13. Osteoarthritis - Stable. 14. DVT prophylaxis - Patient started on IV heparin per protocol for #2 & #4. Update: Just after patient was about to be intubated after her CT was completed she clinically improved and was alert and responsive. She will therefore be continued on BiPAP at this time with repeat ABG pending. Total time: Approximately 95 minutes. Charges/Coding Visit Charges Inpatient E&M: 44635 Init Hosp L3
[2023-02-04 04:53] LABS: Bacteria 3+ /hpf (None Seen); Red Blood Cells-Urine 0-5 SEEN /hpf (0-5); Squamous Epithelial Cells - UA 10-25 SEEN /hpf (5-10); White Blood Cells 25-50 SEEN /hpf (0-5)
[2023-02-04] MEDS: Ondansetron 4 MG/2 ML Vial IV (06:00)
--- NOTE | 2023-02-04 06:28 | ECHOCS_ITS ---
Reason For Study: S/P ME Procedure This was a 2D Doppler, Color Flow transthoracic echocardiogram. The study was technically difficult. Pt on Bipap. Exam performed portable in ICU/CCU. Left Ventricle Mildly dilated left ventricle. The estimated ejection fraction is 10-15 %. Severe segmental systolic dysfunction (see wall motion). Severe global left ventricular systolic dysfunction. Anterio-Basal: Hypokinetic. Lateral-Basal: Hypokinetic. Posterior-Basal: Hypokinetic. Infero-Basal: Akinetic. Basal inferoseptal: Akinetic. Mid-Anterior : Hypokinetic. Mid-Lateral : Akinetic. Mid-Posterior: Hypokinetic. Mid-Inferior: Akinetic. Mid-inferoseptal : Akinetic. Septal [place] : Akinetic. Right Ventricle Normal RV size. Normal systolic function. Atria The left and right atria are normal. Mitral Valve The mitral valve is structurally normal. No prolapse or stenosis seen. Mild (1+) mitral valve insufficiency. Tricuspid Valve Normal tricuspid valve. Mild to moderate (1-2+) tricuspid valve insufficiency. Right ventricular systolic pressure estimated to be 34 mmHg. Aortic Valve The aortic valve is not well visualized in the short axis view. Mild diffuse aortic valve thickening. There is no aortic stenosis. Pulmonic Valve Normal pulmonic valve. Great Vessels Normal aortic root. Pericardium/Pleural No pericardial effusion. Medication Diluted definity 3ml given slow IV push to enhance endocardial definition. MMode/2D Measurements & Calculations LVIDd: 4.9 cm IVSd: 0.76 cm Ao root diam: 3.3 cm LVIDs: 4.4 cm LVPWd: 0.71 cm RVDd: 3.2 cm FS: 10.3 % LAV(MOD-bp): 24.2 ml LVAd ap4: 20.0 cm2 SV(MOD-sp4): 6.8 ml LAV(MOD-bp) Indexed: 15.2 ml/m2 LVLd ap4: 6.2 cm LAV(MOD-sp2): 20.9 ml EDV(MOD-sp4): 54.1 ml LAV(MOD-sp4): 21.8 ml EDV(sp4-el): 55.0 ml LVAs ap4: 17.7 cm2 LVLs ap4: 5.5 cm ESV(MOD-sp4): 47.4 ml ESV(sp4-el): 47.9 ml EF(MOD-sp4): 12.5 % EF(sp4-el): 13.0 % SV(sp4-el): 7.1 ml LA A4 area: 11.2 cm2 LA dimension(2D): 3.4 cm RA A4 area: 11.5 cm2 Time Measurements MV dec time: 0.15 sec Doppler Measurements & Calculations MV E max joe: 67.0 cm/sec Lat Peak E' Joe: 9.1 cm/sec Med Peak E' Joe: 7.2 cm/sec MV A max joe: 54.6 cm/sec E/E' lat: 7.4 E/E' med: 9.3 MV E/A: 1.2 Ao V2 max: 85.2 cm/sec LV V1 max: 64.2 cm/sec PA V2 max: 50.6 cm/sec Ao max P.9 mmHg LV V1 max P.6 mmHg TR max joe: 254.6 cm/sec TR max P.9 mmHg ECHO/Echo Complete W/ Contrast Interpretation Summary The estimated ejection fraction is 10-15 %. Severe global left ventricular systolic dysfunction. Severe segmental systolic dysfunction (see wall motion). Mild (1+) mitral valve insufficiency. Mild to moderate (1-2+) tricuspid valve insufficiency. Mild diffuse aortic valve thickening. Compared to previous echo, the LV systolic function has worsened drastically. Cannot exclude mobile mass on posterior medial mitral valve papilary/chordea. R ecommend EZ if clinically indicated. The study was technically difficult. Contrast injection w as performed. Ordering Physician: Prince Ortega Referring Physician: PATSY STAFFORD Performed By: Mita Buckner RDCS
--- NOTE | 2023-02-04 06:29 | VDLE_ITS ---
Reason For Study: Elevated D-dimer: 2.08 RIGHT LEFT GSV is normal. GSV is normal. CFV is compressible, spontaneous, phasic, CFV is compressible, spontaneous, phasic, competent and demonstrates normal competent, and demonstrates normal augmentation. augmentation. FV is compressible, spontaneous, phasic, FV is compressible, spontaneous, phasic, competent and demonstrates normal competent and demonstrates normal augmentation. augmentation. POP V is compressible, spontaneous, phasic, POP V is compressible, spontaneous, phasic, competent and demonstrates normal competent and demonstrates normal augmentation. augmentation. T/P Trunk is compressible. T/P Trunk is compressible. PTV is compressible. PTV is compressible. RT PerV is compressible. LT PerV is compressible. Procedure This is a venous duplex using B-mode, color flow and spectral Doppler. Exam performed portable in ICU/CCU. A preliminary report was called and/or faxed to [facility]. VL/Venous Duplex US - Carlos Enrique Extrem Interpretation Summary Deep veins of the bilateral lower extremities are patent and compressible segme ntally. There is no evidence of bilateral lower extremity deep vein thrombosis. The left great saph enous vein appears patent and compressible segmentally. Ordering Physician: Prince Ortega Referring Physician: Nereyda Mcdonald Performed By: Julissa Panda RVT
[2023-02-04] MEDS: Ceftriaxone 1 GM/50 ML BAG IV (06:38)
--- OUTSIDE RECORDS SUMMARY | 2023-02-04 06:40 | XMS RPT_ITS | CCD ---
Author Name Unknown Address [address] [place] [address] [address] [place] [address] Organization [facility] Care Team Providers Care Oil Analyst Name Role Phone Steven Chow Primary Care Provider GABRIEL CARABALLO Referring Unavailable STEVEN CHOW Primary [...] [HYDROCODONE-ACETA MINOPHEN] Drug Allergy 06-10-2014 GI Upset [facility] Work Phone: (15 sources) Acetaminophen / oxyCODONE; Translations: [OXYCODONE-ACETAMI NOPHEN] Drug Allergy 06-10-2014 GI Upset [facility] Work Phone: Medications Completed/Discontinued Medications Medication Drug [...] and due to atherosclerosis; Translations: [Atherosclerosis of [place] arteries of extremities with intermittent claudication, bilateral [...] 01-25-2023 10:41-0500 Body height 156.2 cm Jeevan Johnosn MD Work Phone: [facility] 01-25-2023 10:41-0500 Body temperature 97.39 [degF] Jeevan Johnson MD Work Phone: [facility] 01-25-2023 10:41-0500 Body weight 57.83 kg Jeevan Johnson MD Work Phone: [facility] 01-25-2023 10:41-0500 Diastolic blood pressure 74 mm[Hg] Jeevan Johnson MD Work Phone: [facility] 01-25-2023 10:41-0500 Heart rate 88 /min Jeevan Johnson MD Work Phone: [facility] 01-25-2023 10:41-0500 SaO2% (BldA) [Mass fraction] 96 % Jeevan Johnson MD Work Phone: [facility] 01-25-2023 10:41-0500 Systolic blood pressure 113 mm[Hg] Jeevan Johnson MD Work Phone: [facility] 07-19-2022 10:18-0400 Body height 156 cm Robin Fried FACTORY ASSEMBLER.EMAIL MARKETER Work Phone: [facility] 07-19-2022 10:18-0400 Body temperature 97.81 [degF] Robin Fried FACTORY ASSEMBLER.EMAIL MARKETER Work Phone: [facility] 07-19-2022 10:18-0400 Body weight 59.65 kg Robin Fried FACTORY ASSEMBLER.EMAIL MARKETER Work Phone: [facility] 07-19-2022 10:18-0400 Diastolic blood pressure 82 mm[Hg] Robin Fried FACTORY ASSEMBLER.EMAIL MARKETER Work Phone: [facility] 07-19-2022 10:18-0400 Heart rate 90 /min Almo Fried FACTORY ASSEMBLER.EMAIL MARKETER Work Phone: [facility] 07-19-2022 10:18-0400 SaO2% (BldA) [Mass fraction] 95 % Robin Fried FACTORY ASSEMBLER.EMAIL MARKETER Work Phone: [facility] 07-19-2022 10:18-0400 Systolic blood pressure 123 mm[Hg] Robin Fried FACTORY ASSEMBLER.EMAIL MARKETER Work Phone: [facility] 01-13-2022 14:52-0500 Body temperature 98.4 [degF] Eliud Maya MD Work Phone: [facility] 01-13-2022 14:52-0500 Body weight 59.42 kg Eliud Maya MD Work Phone: [facility] 01-13-2022 14:52-0500 Diastolic blood pressure 85 mm[Hg] Eliud Maya MD Work Phone: [facility] 01-13-2022 14:52-0500 Heart rate 104 /min Eliud Maya MD Work Phone: [facility] 01-13-2022 14:52-0500 SaO2% (BldA) [Mass fraction] 94 % Eliud Maya MD Work Phone: [facility] 01-13-2022 14:52-0500 Systolic blood pressure 126 mm[Hg] Eliud Maya MD Work Phone: [facility] 07-14-2021 10:59-0400 Body height 157.5 cm Eliud Maya MD Work Phone: [facility] 07-14-2021 10:59-0400 Body temperature 98.29 [degF] Eliud Maya MD Work Phone: [facility] 07-14-2021 10:59-0400 Body weight 56.47 kg Eliud Maya MD Work Phone: [facility] 07-14-2021 10:59-0400 Diastolic blood pressure 68 mm[Hg] Eliud Maya MD Work Phone: [facility] 07-14-2021 10:59-0400 Heart rate 90 /min Eliud Maya MD Work Phone: [facility] 07-14-2021 10:59-0400 SaO2% (BldA) [Mass fraction] 95 % Eliud Maya MD Work Phone: [facility] 07-14-2021 10:59-0400 Systolic blood pressure 100 mm[Hg] Eliud Maya MD Work Phone: [facility] Encounters Encounter Date Encounter Type Care Provider Facility Start: 01-25-2023 End: 01-25-2023 ambulatory STEVEN HENRIK AUSTEN Facility:[facility] Start: 01-25-2023 End: 01-25-2023 ambulatory Jeevan [...] Author Start: 07-13-2025 DIABETES SCREEN DIABETES SCREEN [facility] Start: 07-13-2025 Diabetes Screening Diabetes Screenin g [facility] Start: 01-13-2025 DIABETES SCREEN DIABETES SCREEN [facility] Start: 07-09-2024 DIABETES SCREEN DIABETES SCREEN [facility] Start: 07-27-2023 End: 02-24-2024 Ct thorax w/o contrast material CT CHEST WO IVCON Radiology Routine Malignant neoplasm of unspecified part of unspecified bronchus or lung (HCC) Expected: 07/27/2023 (Approximate), Expires: 02/24/2024 [facility] Work Phone: Immunizations Immunization Date Immunization Notes Care Provider Talisha gaines 11-12-2021 influenza virus vaccine, unspecified formulation Xr Mob Work Phone: [facility] 11-25-2017 influenza, injectabl e, quadrivalent, preservative free Ct (I-Stat) Work Phone: [facility] 11-30-2016 influenza, injectabl e, quadrivalent, preservative free Ct (I-Stat) Work Phone: [facility] 10-27-2015 influenza, high dose seasonal, preservative-free Ct (I-Stat) Work Phone: [facility] 11-25-2014 influenza, injectabl e, quadrivalent, preservative free Ct (I-Stat) Work Phone: [facility] Work Phone: Payers Date Payer Category Payer Medicare [id number] 2021 Unknown [facility] AND [employer] O [id number] 2021-Present [phone] [address] [place] [address] [facility] [id number] 2021 Unknown [id number] 2020 Medicaid MEDICAID [facility] DEPT OF JOB [id number] 2020-Present [phone] [address] [place] [address] [id number] 2020 Medicare MEDICARE MEDICAR E PART A AND B [id number] 2020-Present [phone] [place] [address] [id number] Social History Date Type Detail Facility Start: 08-22-2020 End: 01-25-2023 Tobacco smoking status NMIS Current every day smoker [facility] Start: 02-15-1972 History of tobacco use Cigarette Smo ker [facility] Start: 08-22-2020 End: 07-19-2022 Cigarettes smoked current (pack per day) - Reported [facility] Start: 08-22-2020 End: 01-25-2023 Tobacco use and exposure Never used [facility] Start: 08-22-2020 Alcohol intake Lifetime non-d polina (finding) [facility] Work Phone: Start: 08-05-2020 History SDOH Alcohol Frequency 1 [facility] [employer] Phone: Start: 1955 Sex Assigned At Not on file [facility] Work Phone: Start: 01-03-2022 End: 01-13-2022 Exposure to SARS-CoV-2 (event) Not sure [facility] Start: 1955 Sex Assigned At Female [facility] Work Phone: Start: 01-15-2021 End: 01-25-2023 Alcohol intake Current non-drinker of alcohol (finding) [facility] Start: 11-05-2019 End: 01-25-2023 Tobacco Comment Pt has cut back to 1/4 pack daily. [facility] Start: 01-15-2021 End: 07-19-2022 Tobacco use panel [facility] Adult Depression Screening Assessment 0 [facility] Start: 07-13-2020 Gender identity Identifies as female gender (finding) [facility] Start: 07-13-2020 Sexual orientation Heterosexual (moriah howard) [facility] Clinical Notes 07-15-2015 to 01-25-2023 Jeevan Johnson MD - 01/25/2023 10:50 AM Senia Branham, RT(R) - 01/25/2023 10:10 AM ESTTelephone Encounter - Lilly Grant - 08/30/2022 8:18 AM EDT Note Date & Type Note Facility 01-25-2023 Note HNO ID: [id number] Author: Jeevan Johnson MD Service: ? Author [...] Date APPENDECTOMY 1974 PAST SURGICAL HISTORY OF [id number] cardiac stent x4 PAST SURGICAL HISTORY OF [...] which included preparing to see the patient, [id number] patient care, completing clinical documentation, obtaining and/or reviewing separately obtained history, performing a medically appropriate examination, counseling and educating the patient/family/caregiver, ordering medications, tests, or procedures, independently interpreting results (not separately reported), and communicating results to the patient/family/caregiver. Electronically Signed: Jeevan Johnson MD January 25, 2023 10:52 AM [facility] 01-25-2023 Note HNO ID: [id number] Author: Senia Ponce RT(R) Service: Radiology Author [...] Ponce RT(R) January 25, 2023 10:15 AM [facility] 01-25-2023 History of Presen t illness Narrative [...] Date APPENDECTOMY 1973 PAST SURGICAL HISTORY OF [id number] cardiac stent x4 PAST SURGICAL HISTORY OF [...] which included preparing to see the patient, [id number] patient care, completing clinical documentation, obtaining and/or reviewing separately obtained history, performing a medically appropriate examination, counseling and educating the patient/family/caregiver, ordering medications, tests, or procedures, independently interpreting results (not separately reported), and communicating results to the patient/family/caregiver. Electronically Signed: Jevean Johnson MD January 25, 2023 10:52 AM documented in this encounter [facility] 01-25-2023 History of Presen t illness Narrative [...] 2023 10:15 AM documented in this encounter [facility] 08-30-2022 Miscellaneous Notes Patient has been identified [...] advise. Lilly Walsh documented in this encounter [facility] 08-19-2022 Note HNO ID: [id number] Author: RT Marylin(R) Service: Nuclear Medicine Author [...] RT Marylin(R) August 19, 2022 10:06 AM [facility] 08-19-2022 History of Presen t illness Narrative [...] 2022 10:06 AM documented in this encounter [facility] 07-23-2022 Note HNO ID: [id number] Author: RT Sally(R) Service: ? Author Type: [...] RT Sally(R) July 23, 2022 3:10 PM [facility] 07-23-2022 History of Presen t illness Narrative [...] 2022 3:10 PM documented in this encounter [facility] 07-19-2022 Miscellaneous Notes Sent e-mail to [facility] leadership regarding this. Patient states she left office visit today without being seen. She states she does not want her insurance billed for OV. documented in this encounter [facility] 07-19-2022 Note HNO ID: [id number] Author: Robin Fried APRN.EMAIL MARKETER Service: ? Author Type: Nurse Practitioner Type: Progress Notes Filed: 07/19/2022 11:26 AM Note Text: Pt. left without being seen. Robin Fried APRN.CNP [facility] 07-19-2022 History of Presen t illness Narrative Pt. left without being seen. Robin Fried APRN.CNP documented in this encounter [facility] 07-13-2022 Note HNO ID: [id number] Author: RT Abel(R) Service: ? Author Type: Real Estate Sales Manager Type: Progress Notes Filed: 07/13/2022 1:59 PM [...] RT Brittanie(R) July 13, 2022 1:59 PM [facility] 07-13-2022 History of Presen t illness Narrative [...] 2022 1:59 PM documented in this encounter [facility] 03-01-2022 Miscellaneous Notes Patient's request for medication [...] you. Kayla Gibson documented in this encounter [facility] 01-13-2022 History of Presen t illness Narrative PATIENT NAME: Jonelle Coronado. CLINIC NO: [id number]. ATTENDING PHYSICIAN: Eliud Maya MD. DATE OF [...] Abs Lymph 1.00 - 4.00 k/uL 3.51 [place]% % 7.[address] [place] <0.87 k/uL 0.86 Eosin% % 2.1 Abs [...] Steven Chow MD documented in this encounter [facility] 09-07-2021 Miscellaneous Notes Patient's request for medication [...] advise. Carmen Martinez documented in this encounter [facility] 07-14-2021 History of Presen t illness Narrative PATIENT NAME: Jonelle Coronado. CLINIC NO: [id number]. ATTENDING PHYSICIAN: Eliud Maya MD. DATE OF [...] Abs Lymph 1.00 - 4.00 k/uL 2.74 [place]% % 5.[address] [place] <0.87 k/uL 0.73 Eosin% % 1.7 Abs [...] Steven Chow MD documented in this encounter [facility] 07-09-2021 History of Presen t illness Narrative [...] TIME: 12:22 PM documented in this encounter [facility] documented as of this encounter (statuses as of 07/10/2021) [facility] History of Past illness Narrative* Problem Noted Date Resolved Date Lung cancer, hilus 08/28/2014 12/16/2014 Lung mass 08/28/2014 09/12/2014 documented as of this encounter (statuses as of 07/15/2021) [address]15-2015 History of Past illness Narrative* Problem Noted Date Resolved Date Lung cancer, hilus 08/28/2014 12/16/2014 Lung mass 08/28/2014 09/12/2014 documented as of this encounter (statuses as of 09/07/2021) [facility] History of Past illness Narrative* Problem Noted Date Resolved Date Lung cancer, hilus 08/28/2014 12/16/2014 Lung mass 08/28/2014 09/12/2014 documented as of this encounter (statuses as of 01/14/2022) [facility] History of Past illness Narrative* Problem Noted Date Resolved Date Lung cancer, hilus 08/28/2014 12/16/2014 Lung mass 08/28/2014 09/12/2014 documented as of this encounter (statuses as of 03/01/2022) [address]15-2015 History of Past illness Narrative* Problem Noted Date Resolved Date Lung cancer, hilus 08/28/2014 12/16/2014 Lung mass 08/28/2014 09/12/2014 documented as of this encounter (statuses as of 07/19/2022) [facility] History of Past illness Narrative* Problem Noted Date Resolved Date Lung cancer, hilus 08/28/2014 12/16/2014 Lung mass 08/28/2014 09/12/2014 documented as of this encounter (statuses as of 07/19/2022) [facility] History of Past illness Narrative* Problem Noted Date Resolved Date Lung cancer, hilus 08/28/2014 12/16/2014 Lung mass 08/28/2014 09/12/2014 documented as of this encounter (statuses as of 07/20/2022) [facility] History of Past illness Narrative* Problem Noted Date Diagnosed Date Resolved Date Lung cancer, hilus 08/28/2014 5 Lung mass 08/28/2014 09/12/2014 documented as of this encounter (statuses as of 08/31/2022) [facility] History of Past illness Narrative* Problem Noted Date Diagnosed Date Resolved Date Lung cancer, hilus 08/28/2014 5 Lung mass 08/28/2014 09/12/2014 documented as of this encounter (statuses as of 12/19/2022) [facility] History of Past illness Narrative* Problem Noted Date Diagnosed Date Resolved Date Lung cancer, hilus 08/28/2014 5 Lung mass 08/28/2014 09/12/2014 documented as of this encounter (statuses as of 12/19/2022) [facility] History of Past illness Narrative* Problem Noted Date Diagnosed Date Resolved Date Lung cancer, hilus 08/28/2014 5 Lung mass 08/28/2014 09/12/2014 documented as of this encounter (statuses as of 01/26/2023) [facility] History of Past illness Narrative* Problem Noted Date Diagnosed Date Resolved Date Lung cancer, hilus 08/28/2014 5 Lung mass 08/28/2014 09/12/2014 documented as of this encounter (statuses as of 01/26/2023) [facility] note* Diagnosis Atherosclerosis of [place] arteries of extremities with intermittent claudication, bilateral legs (HCC) documented in this encounter [employer] Work Phone: Evaluation note* Diagnosis Atherosclerosis of [place] arteries of extremities with intermittent claudication, bilateral legs (HCC) documented in this encounter [employer] Phone: Evaluation note* Diagnosis Malignant neoplasm of unspecified part of unspecified bronchus or lung (HCC) Adrenal insufficiency (HCC) 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, 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) [facility] Diagnosis Adrenal insufficiency (HCC)- Primary 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, 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) documented [facility] this encounter [facility] Diagnosis 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, unspecified laterality (HCC) Malaise and fatigue Other malaise and fatigue Adrenal insufficiency (HCC) Glucocorticoid deficiency [facility] Diagnosis Malignant neoplasm of unspecified part of unspecified bronchus or lung (HCC)- Primary 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, unspecified laterality (HCC) [facility] this encounter [facility] Diagnosis 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, unspecified laterality (HCC) Malaise and fatigue Other malaise and fatigue Adrenal insufficiency (HCC) Glucocorticoid deficiency documented in this encounter [facility] note* Diagnosis Malignant neoplasm of unspecified part of unspecified bronchus or lung (HCC)- Primary documented in this encounter [facility] note* Diagnosis 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, unspecified laterality (HCC) Malaise and fatigue Other malaise and fatigue Adrenal insufficiency (HCC) Glucocorticoid deficiency documented in this encounter [facility] note* Diagnosis Malignant neoplasm of unspecified part of unspecified bronchus or lung (HCC) 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, unspecified laterality (HCC) documented in this encounter [facility] note* Diagnosis Malignant neoplasm of unspecified part of unspecified bronchus or lung (HCC)- Primary documented in this encounter [facility] note* Diagnosis 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, unspecified laterality (HCC) documented in this encounter [facility] Summary Purpose Family History No Family History Records FoundNo Family History Records FoundNo Family History Records FoundNo Family History Records Found Advance Directives No Advanced Directives Records FoundNo Advanced Directives Records FoundNo Advanced Directives Records FoundNo Advanced Directives Records Found Reason for Referral Status Reason Specialty Diagnoses / Procedures Referre d By Contact Referred To Contact Closed Radiology Diagnoses Atherosclerosis of [place] arteries of extremities with intermittent claudication, bilateral legs (HCC) Procedures CTA ABDOMINAL AORTA W BILAT RUNOFF W WO CONTRAST Joey Oglesby MD [address] [facility] [address] [place] [address] Specialty Diagnoses / Procedures Referred By Contac t Referred To Contact CT IMAGING Diagnoses Malignant neoplasm of unspecified part of unspecified bronchus or lung (HCC) Adrenal insufficiency (HCC) 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, 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) Procedures CT CHEST W IVCON CAT SCAN OF CHEST CONTRAST Eliud Maya MD [address] [place] [address] Ct Imaging Referral ID Status Reason Start Date Expiration Date V isits Requested Visits Authorized [id number] Closed Auto-Generate d Referral 07/09/2021 02/14/2022 1 1 Specialty Diagnoses / Procedures Referred By Contac t Referred To Contact CT IMAGING Diagnoses Malignant neoplasm of unspecified part of unspecified bronchus or lung (HCC) 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, unspecified laterality (HCC) Procedures CT CHEST WO IVCON DIAGNOSTIC COMPUTED TOMOGRAPHY THORAX W/O CNTRST Eliud Maya MD [address] [place] [address] Ct Imaging Referral ID Status Reason Start Date Expiration Date Visits Requested Visits Authorized [id number] Authorized Auto-Generat ed Referral 07/13/2022 02/12/2023 1 1 Specialty Diagnoses / Procedures Referred By Contac t Referred To Contact CT IMAGING Diagnoses Malignant neoplasm of unspecified part of unspecified bronchus or lung (HCC) 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, unspecified laterality (HCC) Procedures CT CHEST WO IVCON DIAGNOSTIC COMPUTED TOMOGRAPHY THORAX W/O CNTRST Eliud Maya MD [address] [place] [address] [place] [address] Referral ID Status Reason Start Date Expiration Date V isits Requested Visits Authorized [id number] Closed Auto-Generate d Referral 07/13/2022 02/12/2023 1 1 Specialty Diagnoses / Procedures Referred By Contac t Referred To Contact CT IMAGING Diagnoses Malignant neoplasm of unspecified part of unspecified bronchus or lung (HCC) Procedures CT CHEST WO IVCON DIAGNOSTIC COMPUTED TOMOGRAPHY THORAX W/[place] [address] [place] [address] [place] [address] Referral ID Status Reason Start Date Expiration Date Visits Requested Visits Authorized [id number] Authorized Auto-Generat ed Referral 07/27/2023 02/24/2024 1 1 Additional Source Comments INFORMATION SOURCE (unrecogn ized section and content) DATE CREATED AUTHOR AUTHOR'S ORGANIZ ATION 09/18/2020 [facility] DATE CREATED AUTHOR AUTHOR'S ORGANIZ ATION 01/11/2023 [facility] DATE CREATED AUTHOR AUTHOR'S ORGANIZ ATION 01/27/2023 [facility] Source Comments (unrecognize d section and content) In the event this informatio n is protected by the Federal Confidentiality of Alcohol and Drug Abuse Patient Records regulations: The Federal rules restrict any use of the information to criminally investigate or prosecute any alcohol or drug abuse patient.[facility] the event this information is protected by the Federal Confidentiality of Alcohol and Drug Abuse Patient Records regulations: The Federal rules restrict any use of the information to criminally investigate or prosecute any alcohol or drug abuse patient.[facility] the event this information is protected by the Federal Confidentiality of Alcohol and Drug Abuse Patient Records regulations: The Federal rules restrict any use of the information to criminally investigate or prosecute any alcohol or drug abuse patient.[facility] the event this information is protected by the Federal Confidentiality of Alcohol and Drug Abuse Patient Records regulations: The Federal rules restrict any use of the information to criminally investigate or prosecute any alcohol or drug abuse patient.[facility] CenterIn the event this information is protected by the Federal Confidentiality of Alcohol and Drug Abuse Patient Records regulations: The Federal rules restrict any use of the information to criminally investigate or prosecute any alcohol or drug abuse patient.[facility] CenterIn the event this information is protected by the Federal Confidentiality of Alcohol and Drug Abuse Patient Records regulations: The Federal rules restrict any use of the information to criminally investigate or prosecute any alcohol or drug abuse patient.[facility] CenterIn the event this information is protected by the Federal Confidentiality of Alcohol and Drug Abuse Patient Records regulations: The Federal rules restrict any use of the information to criminally investigate or prosecute any alcohol or drug abuse patient.[facility] CenterIn the event this information is protected by the Federal Confidentiality of Alcohol and Drug Abuse Patient Records regulations: The Federal rules restrict any use of the information to criminally investigate or prosecute any alcohol or drug abuse patient.[facility] CenterIn the event this information is protected by the Federal Confidentiality of Alcohol and Drug Abuse Patient Records regulations: The Federal rules restrict any use of the information to criminally investigate or prosecute any alcohol or drug abuse patient.[facility] CenterIn the event this information is protected by the Federal Confidentiality of Alcohol and Drug Abuse Patient Records regulations: The Federal rules restrict any use of the information to criminally investigate or prosecute any alcohol or drug abuse patient.[facility] CenterIn the event this information is protected by the Federal Confidentiality of Alcohol and Drug Abuse Patient Records regulations: The Federal rules restrict any use of the information to criminally investigate or prosecute any alcohol or drug abuse patient.[facility] CenterIn the event this information is protected by the Federal Confidentiality of Alcohol and Drug Abuse Patient Records regulations: The Federal rules restrict any use of the information to criminally investigate or prosecute any alcohol or drug abuse patient.[facility] CenterIn the event this information is protected by the Federal Confidentiality of Alcohol and Drug Abuse Patient Records regulations: The Federal rules restrict any use of the information to criminally investigate or prosecute any alcohol or drug abuse patient.[facility] CenterIn the event this information is protected by the Federal Confidentiality of Alcohol and Drug Abuse Patient Records regulations: The Federal rules restrict any use of the information to criminally investigate or prosecute any alcohol or drug abuse patient.[facility] Reason for Visit (unrecogniz ed section and [...] OF CHEST CONTRAST Eliud Maya MD [address] [facility] [place] [address] [address] Imaging Referral ID Status Reason Start Date Expiration Date V isits Requested Visits Authorized [id number] Closed Auto-Generate d Referral 07/09/2021 02/14/2022 1 [...] TOMOGRAPHY THORAX W/O CNTRST [place]ud [place] [address] [place] [id number] Referral ID Status Reason Start Date Expiration Date V isits Requested Visits Authorized [id number] Closed Auto-Generate d Referral 07/13/2022 02/12/2023 1 1 Care Teams (unrecognized sec tion and content) Oil Analyst Relationship Specialty Start Date End Date Steven Chow MD PCP - General Family Practice 06/07/14 Oil Analyst Relationship Specialty Start Date End Date Steven Chow MD PCP - General Family Practice 06/07/14 Oil Analyst Relationship Specialty Start Date End Date Steven Chow MD PCP - General Family Medicine 06/07/14 Oil Analyst Relationship Specialty Start Date End Date Steven Chow MD PCP - General Family Medicine 06/07/14 Oil Analyst Relationship Specialty Start Date End Date Steven Chow MD PCP - General Family Medicine 06/07/14 Oil Analyst Relationship Specialty Start Date End Date Steven Chow MD PCP - General Family Medicine 06/07/14 Oil Analyst Relationship Specialty Start Date End Date Steven Chow MD PCP - General Family [facility] 06/07/14 Oil Analyst Relationship Specialty Start Date End Date Steven Chow MD [facility] 06/07/14 Oil Analyst Relationship Specialty Start Date End Date Steven Chow MD [facility] 06/07/14 Oil Analyst Relationship Specialty Start Date End Date Steven Chow MD [facility] 06/07/14 Oil Analyst Relationship Specialty Start Date End Date Steven Chow MD [facility] 06/07/14 Oil Analyst Relationship Specialty Start Date End Date Steven Chow MD [facility] 06/07/14 Oil Analyst Relationship Specialty Start Date End Date Steven Chow MD [facility] 06/07/14 FOR RECORDS PERTAINING TO PATIENTS WHO [...] PRIMARY CLINICAL RECORDS. [facility] [employer] [facility]. provides no warranty or guarantee of the accuracy or completeness of information in this document.
[2023-02-04 07:00] LABS: Troponin-I HS 2716 pg/mL (3.0-54.0)
--- NOTE | 2023-02-04 07:00 | NURSING ---
ICU AMANDA HYPERCAPNIC RESP FAILURE, RSV BRONCHITIS, UTI, SEPSIS
[2023-02-04 07:48] LABS: Allen Test Positive; Base Excess -4 mmol/L (-2 to +2); Bicarbonate 22.5 mmol/L (22-26); Blood Gas Specimen Type ART; Comment avaps; Mode Not entered; O2 Delivery Device BiPAP; PEEP 12; PO2 71 mmHG (75-100); RR 14; SITE R Radial; SO2 93 % (95-99); Total Carbon Dioxide 24 mmol/L; pCO2 43.6 mmHg (35-45); pH 7.32 (7.35-7.45)
[2023-02-04] MEDS: 0.9% Normal Saline (1000mL) 1,000 ML 100 ML IV ×2 (08:03→19:31)
[2023-02-04] MEDS: 0.9% Saline Lock 10 ML Syringe IV (08:03)
[2023-02-04] MEDS: MethylPREDNISolone 125 MG/2 ML Vial 60 MG IV (09:54)
[2023-02-04] MEDS: Aspirin E.C. 81 MG Tablet PO (09:54)
[2023-02-04] MEDS: TICAGRELOR 90 MG TABLET PO ×2 (09:54→20:28)
[2023-02-04] MEDS: Escitalopram Oxalate 20 MG Tablet PO (09:54)
[2023-02-04] MEDS: Pantoprazole Sodium 40 MG in 0.9% Normal Saline (100mL MB+) 100 ML 330 MG IV (09:54)
[2023-02-04] MEDS: Cilostazol 50 MG Tablet PO ×2 (09:54→20:28)
[2023-02-04] MEDS: Enoxaparin 60 MG/0.6 ML Syringe SC ×2 (09:55→20:27)
[2023-02-04] MEDS: Azithromycin 500 MG in Dextrose 5%-Water (250mL Bag) 250 ML 250 MG IV (09:55)
--- NOTE | 2023-02-04 10:53 | CON.PCM.CC_ITS ---
Assessment & Plan Assessment/Plan (1) Acute hypercapnic respiratory failure: (2) Urinary tract infection: (3) Sepsis: (4) RSV bronchitis: (5) Tobacco abuse: PLAN: Plan RECOMMENDATIONS: 1. Reinitiate hydrocortisone 2. Continue steroids, bronchodilators 3. Only short BiPAP breaks for now 4. Discontinue antibiotics of urine culture negative 5. Okay to reinitiate beta-nakul 6. Wean oxygen as tolerated IMPRESSIONS: 1. Acute combined respiratory failure secondary to RSV pneumonitis in the setting of probable COPD exacerbation Patient does have an extensive smoking history with stigmata consistent with COPD previously. Patient also has a history of squamous cell lung carcinoma that is in reported remission. Patient has responded well to BiPAP clinically. Will continue with BiPAP for now. Patient does state she would be willing to be intubated if necessary. Will continue broad-spectrum antibiotics for now, but if culture negative, likely discontinue antibiotics at 48 hours. Symptomatic control of fever will be helpful. Patient is in appropriate isolation. 2. Elevated troponin Unclear etiology. Patient was tachycardic and does have an extensive cardiac history. However, patient was also severely hypoxic on presentation. Patient does have an echocardiogram ordered. Cardiology has been consulted. Patient is on a heparin drip for now. Await recommendations. 3. Possible UTI Patient does have significant bacteria and leukocyte esterase on UA. However, patient also has several squamous cells. If cultures are negative, cef triaxone can likely be discontinued. CT of the chest is consistent with a viral etiology 4. Metabolic encephalopathy secondary to hypercarbia secondary to problem #1 Patient appears to be improving significantly with BiPAP therapy. Continue with delirium protocol. Patient will be at risk given need for BiPAP and steroids for development of delirium moving forward. 5. History of GI bleed/adrenal insufficiency/osteoarthritis/peripheral vascular disease/continued smoking/lack of pulmonary care Complicates care, management, recovery and prognosis. Okay to reinitiate hydrocortisone in addition to Solu-Medrol. Patient does have a history of SVT. Clinical suspicion is current SVT is secondary to acute status, but patient is not hypotensive so metoprolol can be continued for now. HPI Consult Data Date of Consult: 02/04/23 HPI Narrative HPI Narrative: ANDIE SCOTT is a 67 F, with past medical history listed below, who presents to [facility] on 02/04[facility]2023 secondary to progressive shortness of breath. Patient had been seen on the day prior in the ER and diagnosed with RSV. Patient was able to be discharged on home oxygen with aerosols. Patient was also started on prednisone. Patient reportedly had progressed overnight and called EMS. Patient was not conversational at that time and brought to the ER for evaluation. On arrival to the emergency room, patient was afebrile, but tachycardic at 124 bpm. Patient was normotensive, but requiring BiPAP at 50% to maintain saturations. Patient's laboratory workup showed a white blood cell count of 14.2, hemoglobin of 14.4 and platelets of 279. Coagulation studies were within normal limits, but D-dimer was elevated 2.08. Chemistry showed an elevated bicarbonate of 25, creatinine of 1.06 and a lactate of 1.6. Patient's troponin was slightly elevated at 128. Patient did have a UA showing leukocyte Estrace and occult blood along with bacteria, but some squamous were noted. Initial ABG showed a combined metabolic and respiratory acidosis with increased AA gradient. Patient was placed on BiPAP with some improvement. Chest x-ray showed an interstitial pattern. CTA of the chest showed no PE or dissection, but diffuse bronchial thickening with scattered areas of mucous plugging, tree-in-bud op acities and a spiculated pleural-based nodule in the sulcus. Patient was placed on BiPAP and given DuoNebs. Patient did start to respond. Patient was placed on azithromycin and Rocephin and admitted to the intensive care unit secondary to concerns for her respiratory status. Since being in the intensive care unit, patient has relatively stabilized on BiPAP. Patient currently on AVAPS with a targeted tidal volume of 500. Patient does get very short of breath shortly after removal of BiPAP. Patient states that she has continued to smoke. 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 Patient assumes that she has COPD, but has not been tested that she is aware of. Patient denies any trauma. Patient is unaware of any sick contacts. Patient denies any chest pain or palpitations at this time. Review of systems otherwise negative from a constitutional, HEENT, respiratory, cardiovascular, GI, genitourinary, musculoskeletal, skin, neurologic, psychiatric and hematologic system unless stated above. [facility] Medical History Adrenal insufficiency Anxiety Aspiration pneumonia Atherosclerotic heart disease of [place] coronary artery without angina pectoris Cardiac arrest Cardiogenic shock Cardiomyopathy Carotid stenosis Carotid stenosis, left Chronic obstructive pulmonary disease (COPD) Coronary artery disease Debility Essential hypertension Healthcare associated bacterial pneumonia History of GI bleed History of myocardial infarction Hyperlipidemia Hypokalemia Hypotension Left shoulder pain NSTEMI (non-ST elevated myocardial infarction) PAD (peripheral artery disease) Peripheral vascular insufficiency Squamous cell carcinoma of left lung STEMI (ST elevation myocardial infarction) Tobacco abuse Tobacco use Torsades de pointes Ventricular tachycardia Home Medications lorazepam 1 mg tablet (Ativan) 1 mg PO QHS 04/15/20 [History Last Taken Unknown] hydrocortisone 10 mg tablet 20 mg PO .COMPLEX adrenal insufficiency 02/04/21 [History Last Taken Unknown] diazepam 5 mg tablet 2.5 mg (1/2 x 5 mg) PO Q8 PRN Muscle Spasm #10 tabs 06/17/21 [Rx Last Taken Unknown] cilostazol 50 mg tablet 50 mg PO BID 12/18/21 [History Last Taken Unknown] lisinopril 2.5 mg tablet 2.5 mg PO DAILY #90 tabs 04/05/22 [Rx Last Taken Unkno wn] evolocumab 140 mg/mL subcutaneous pen injector (Repatha SureClick) 140 mg subcut Q2W #2 mL 05/18/22 [Rx Last Taken Unknown] escitalopram oxalate 20 mg tablet (Lexapro) 20 mg PO DAILY 06/30/22 [History Last Taken Unknown] nitroglycerin 0.4 mg sublingual tablet 0.4 mg sublingual Q5-15M PRN chest pain #25 tabs 06/30/22 [Rx Last Taken Unknown] metoprolol tartrate 25 mg tablet 25 mg PO BID #180 tabs 07/14/22 [Rx Last Taken Unknown] ticagrelor 90 mg tablet 90 mg PO BID blood thinner #180 tabs 08/16/22 [Rx Last Taken Unknown] aspirin 81 mg tablet,delayed release (Adult Low Dose Aspirin) 81 mg PO DAILY 01/03/23 [History Last Taken Unknown] hydrocodone-homatropine 5 mg-1.5 mg/5 mL (5 mL) oral syrup (Hycodan) 5 ml PO Q6H PRN cough 5 days #50 mL 02/03/23 [Rx Last Taken Unknown] prednisone 20 mg tablet 40 mg (2 x 20 mg) PO DAILY 7 days #14 tabs 02/03/23 [Rx Last Taken Unknown] Allergy/AdvReac Type Severity Reaction Status Date / Time acetaminophen [From Vicodin] Allergy Intermediate Itching Verified 02/04/23 03:05 atorvastatin AdvReac Severe Myalgias Verified 02/04/23 03:05 hydrocodone AdvReac Itching Verified 02/04/23 03:05 hydrocodone bitartrate AdvReac Itching Verified 02/04/23 03:05 [From Vicodin] oxycodone HCl [From Percocet] AdvReac Itching Verified 02/04/23 03:05 Family History Mother Heart disease Hypertension CVA (cerebral vascular accident) Surgical History Aortocoronary bypass status (~09/24/13) Hx of appendectomy Hx of tubal ligation Presence of stent in coronary artery (~02/10/20) Social History Smoking Status: Current every day smoker tobacco type: cigarettes quit status: considering quitting alcohol intake: never substance use type: does not use caffeine: Yes what type of physical activity do you participate in: none frequency: does not exercise ROS ROS Narrative See HPI Physical Exam Const alert and oriented x3 Constitutional Narrative: Good BiPAP synchrony. Conversational dyspnea noted. General Appearance: cooperative HEENT normocephalic, head/scalp atraumatic and hearing grossly normal bilaterally HEENT Narrative: Oropharynx dry. Eyes PERRL, EOMs intact bilaterally and conjunctivae normal Neck no lymphadenopathy and supple Resp normal respiratory effort Effort and Inspection: prolonged expiratory phase Auscultation: wheezes; Negative for rales or rhonchi Cardio regular rhythm, S1 normal heart sound, S2 normal heart sound, no murmurs, no rub and no gallops Rate: tachycardic GI normal to inspection, nondistended, normoactive bowel sounds, soft to palpation, non-tender and non-distended Extremity normal to inspection General Extremity: clubbing; Negative for edema Skin no rashes or lesions noted Neuro oriented x3, CN's II-XII intact bilaterally, moves all extremities and no focal motor deficits Psych Activity / Motor Behavior: restless Mood & Affect: anxious Medical Records Data Attestation: I reviewed the patient's medical records Medical records narrative: Patient does not have any previous PFT results available for review Lab / Micro Data Attestation: I reviewed the patient's lab results. 02/04/23 03:04 02/04/23 03:04 Labs: Laboratory Results - last 24 hr 02/04/23 03:04: WBC 14.2 H, RBC 4.73, Hgb 14.4, Hct 45.9, MCV 97.0 D, MCH 30.4, MCHC 31.4 L D, RDW Std Deviation 51.1 H, RDW Coeff of [place]hem[place] 14.1, Plt Count 279, MPV 11.0, Immature Gran % (Auto) 0.600, Neut % (Auto) 60.2, Lymph % (Auto) 27.9, Coleman % (Auto) 10.4 H, Eos % (Auto) 0.4, Baso % (Auto) 0.5, Absolute Neuts (auto) 8.5 H, Absolute Lymphs (auto) 3.96, Nucleated RBC % 0, PT 13.7, INR 1.1, APTT 28.7, D-Dimer Quant (PE/DVT) 2.08 H*, Sodium 138, Potassium 4.3, Chloride 106, Carbon Dioxide 25.0, Anion Gap 7, BUN 8, Creatinine 1.06 H, Estim Creat Clear Calc 40.17, Est GFR (MDRD) Af Amer 66, Est GFR (MDRD) Non-Af 55 L, BUN/Creatinine Ratio 7.5 L, Glucose 236 H, Calcium 8.3 L, Troponin I High Sens 128 H* 02/04/23 03:18: Lactic Acid 1.6 02/04/23 04:07: Urine Color Yellow, Urine Clarity Clear, Urine pH 5.0, Ur Specific [place] 1.025, Urine Protein 100 H, Urine Glucose (UA) Normal, Urine Ketones Negative, Urine Occult Blood 250 H, Urine Nitrite Negative, Urine Bi lirubin Negative, Urine Urobilinogen Normal, Ur Leukocyte Esterase 100 H, Urine RBC 0-5 SEEN, Urine WBC 25-50 SEEN, Ur Squamous Epith Cells 10-25 SEEN, Urine Bacteria 3+, Urine Mucus 0 SEEN 02/04/23 06:34: Troponin I High Sens 2716 H* ABG Data ABG results: ABG 02/04/23 02/04/23 02/04/23 03:25 04:23 07:45 Specimen Type ART ART ART Sample Site R Radial L Radial R Radial pH 7.16 L* 7.22 L 7.32 L Bicarbonate Actual 25.5 25.2 22.5 Total CO2 28 27 24 Base Excess -3 L -3 L -4 L O2 Saturation 86 L 92 L 93 L O2 % 48.0 50.0 45.0 ABG pCO2 72.4 H* 62.0 H 43.6 ABG pO2 67 L 77 71 L Zhang Test Positive Positive Positive Respiration Rate 12 14 14 O2 Delivery Device BiPAP BiPAP BiPAP Vent Mode Not entered Not entered Not entered Tidal Volume 500.0 500.0 500.0 POC PEEP 12 12 Crit Call To/Read Back Yes Clinical Comments avaps Imagaing Radiology Impression Chest X-Ray 02/04/23 03:33 IMPRESSION: 1. Thickening of the interlobular septa likely due to interstitial edema which is new since the previous exam. 2. Slight right pleural effusion. Electronically Signed: Bakari Bledsoe MD at 3:49 EST , Chest CTA 02/04/23 04:19 IMPRESSION: 1. No pulmonary embolism or dissection. 2. Diffuse bronchial wall thickening bilaterally with scattered areas of mucus plugging bilaterally. 3. Spiculated pleural-based lesion measuring 1 cm left superior sulcus. Fleischner Society Guidelines recommend a follow-up chest CT in 6-12 months in patients with a low or high risk of malignancy. 4. Small foci of tree-in-bud nodular opacities in the apical posterior segment and the anterior segment of the left upper lobe may represent small foci of infection. 5. Emphysema. 6. Coronary artery disease. 7. Subsegmental atelectasis in the lingula. Electronically Signed: Bakari Bledsoe MD at 6:04 EST , Charges/Coding Visit Charges Inpatient E&M: 46363 Init Hosp L3
[2023-02-04] MEDS: Metoprolol Tartrate 25 MG Tablet PO ×2 (11:35→20:28)
--- NOTE | 2023-02-04 13:15 | CON.PCM.CA_ITS ---
<Statement entered by Jazmine Smith MD - 02/04/23 15:46> Pt seen & evaluated w/[facility]. I personally interviewed & exam the pt. I was involved in all aspects of pt's orders, interpretation of results & treatment Assessment & Plan Assessment/Plan (1) Elevated troponin I level: (2) Sepsis: (3) Aortocoronary bypass status: (4) Presence of stent in coronary artery: (5) PAD (peripheral artery disease): (6) Essential hypertension: (7) Hyperlipidemia: (8) Cardiomyopathy: PLAN: Plan * Pts troponin is elevated, this could be related to her hypoxia or it could be CAD related. At this time will not pursue a heart cath with her sepsis. Will monitor her t/o her hospital stay. If need be we can pursue on in Pt basis, but can consider this on OP basis. She did have a negative stress test in 2021. * Cardiomyopathy: EF has worsened. As mentioned above, would consider a heart cath on OP basis. Do not want to pursue as inpt with her sepsis. Recommend maximizing medications. This will need to be based on BP readings. She is currently on Metoprolol, recommend switching this to Coreg. Based on VS recommend starting entresto, spirolactone and SGL2. This may need to be done on OP basis. * Recommend repeating echo in 1-3 months post d/c to see if EF improved. If not will need to consider prophylactic ICD. HPI Consult Data Date of Consult: 02/04/23 HPI Narrative HPI Narrative: ANDIE SCOTT, is a 67 F who presented to [facility] ER on 02/04/23 for increased SOB. She was diagnosed with RSV on 02/03/2023. She was admitted with Sepsis, Acute respiratory failure, UTI. She was admitted to ICU on Bipap. She did have an elevated DDimer. CTA was negative for PE. She was also noted to have an elevated troponin, this trended 128/2716. She was seen in our office last month. She does have history of CAD, PCI, CABG, ischemic mediated cardiomyopathy, cardiac dysrhythmia/torsade de pointes, peripheral artery disease, hyperlipidemia, and hypertension. In February 10, 2020 with acute arrest, torsades to points, non-STEMI, cardiogenic shock and ventricular tachycardia. Patient had a witnessed arrest and CPR was started. She did undergo an urgent catheterization where she had a PCI to her SVG to the OM 1. She was also noted to have a reduced ejection fraction of 40%. She had bypass surgery in 2013 where she had an KENNY to the LAD, SVG to the OM, SVG to the distal right. Echocardiogram in 02/2021 demonstrated and EF of 50%. Stress test 11/2021 was negative for ischemia. Preliminary echo today demonstrated a decrease in her EF. This demonstrated and EF of 10-15%. [facility] Medical History Adrenal insufficiency Anxiety Aspiration pneumonia Atherosclerotic heart disease of [place] coronary artery without angina pectoris Cardiac arrest Cardiogenic shock Cardiomyopathy Carotid stenosis Carotid stenosis, left Chronic obstructive pulmonary disease (COPD) Coronary artery disease Debility Essential hypertension Healthcare associated bacterial pneumonia History of GI bleed History of myocardial infarction Hyperlipidemia Hypokalemia Hypotension Left shoulder pain NSTEMI (non-ST elevated myocardial infarction) PAD (peripheral artery disease) Peripheral vascular insufficiency Squamous cell carcinoma of left lung STEMI (ST elevation myocardial infarction) Tobacco abuse Tobacco use Torsades de pointes Ventricular tachycardia Home Medications lorazepam 1 mg tablet (Ativan) 1 mg PO QHS 04/15/20 [History Last Taken Unknown] hydrocortisone 10 mg tablet 20 mg PO .COMPLEX adrenal insufficiency 02/04/21 [History Last Taken Unknown] diazepam 5 mg tablet 2.5 mg (1/2 x 5 mg) PO Q8 PRN Muscle Spasm #10 tabs 06/17/21 [Rx Last Taken Unknown] cilostazol 50 mg tablet 50 mg PO BID 12/18/21 [History Last Taken Unknown] lisinopril 2.5 mg tablet 2.5 mg PO DAILY #90 tabs 04/05/22 [Rx Last Taken Unknown] evolocumab 140 mg/mL subcutaneous pen injector (Repatha SureClick) 140 mg subcut Q2W #2 mL 05/18/22 [Rx Last Taken Unknown] escitalopram oxalate 20 mg tablet (Lexapro) 20 mg PO DAILY 06/30/22 [History Last Taken Unknown] nitroglycerin 0.4 mg sublingual tablet 0.4 mg sublingual Q5-15M PRN chest pain #25 tabs 06/30/22 [Rx Last Taken Unknown] metoprolol tartrate 25 mg tablet 25 mg PO BID #180 tabs 07/14/22 [Rx Last Taken Unknown] ticagrelor 90 mg tablet 90 mg PO BID blood thinner #180 tabs 08/16/22 [Rx Last Taken Unknown] aspirin 81 mg tablet,delayed release (Adult Low Dose Aspirin) 81 mg PO DAILY 01/03/23 [History Last Taken Unknown] hydrocodone-homatropine 5 mg-1.5 mg/5 mL (5 mL) oral syrup (Hycodan) 5 ml PO Q6H PRN cough 5 days #50 mL 02/03/23 [Rx Last Taken Unknown] prednisone 20 mg tablet 40 mg (2 x 20 mg) PO DAILY 7 days #14 tabs 02/03/23 [Rx Last Taken Unknown] Allergy/AdvReac Type Severity Reaction Status Date / Time acetaminophen [From Vicodin] Allergy Intermediate Itching Verified 02/04/23 03:05 atorvastatin AdvReac Severe Myalgias Verified 02/04/23 03:05 hydrocodone AdvReac Itching Verified 02/04/23 03:05 hydrocodone bitartrate AdvReac Itching Verified 02/04/23 03:05 [From Vicodin] oxycodone HCl [From Percocet] AdvReac Itching Verified 02/04/23 03:05 Family History Mother Heart disease Hypertension CVA (cerebral vascular accident) Surgical History Aortocoronary bypass status (~09/24/13) Hx of appendectomy Hx of tubal ligation Presence of stent in coronary artery (~02/10/20) Social History Smoking Status: Current every day smoker tobacco type: cigarettes quit status: considering quitting alcohol intake: never substance use type: does not use caffeine: Yes what type of physical activity do you participate in: none frequency: does not exercise Physical Exam Const alert and oriented x3 Constitutional Narrative: Good BiPAP synchrony. Conversational dyspnea noted. General Appearance: cooperative HEENT normocephalic, head/scalp atraumatic and hearing grossly normal bilaterally HEENT Narrative: Oropharynx dry. Eyes PERRL, EOMs intact bilaterally and conjunctivae normal Neck no lymphadenopathy and supple Resp normal respiratory effort Effort and Inspection: prolonged expiratory phase Auscultation: wheezes; Negative for rales or rhonchi Cardio regular rhythm, S1 normal heart sound, S2 normal heart sound, no murmurs, no rub and no gallops Rate: tachycardic GI normal to inspection, nondistended, normoactive bowel sounds, soft to palpation, non-tender and non-distended Extremity normal to inspection General Extremity: clubbing; Negative for edema Skin no rashes or lesions noted Neuro oriented x3, CN's II-XII intact bilaterally, moves all extremities and no focal motor deficits Psych Activity / Motor Behavior: restless Mood & Affect: anxious Risk Stratification Risk Stratification Applicable: Yes Age >/= 65: Yes >/= 3 CAD Risk Factors (HTN, HLD, DM, family hx of CAD, or current smoker): Yes Aspirin Use in the Past 7 Days: Yes Severe Angina (>/= episodes in 24 hours): No EKG ST Changes >/= 0.5mm: No Positive Cardiac Marker: Yes LUANNE Risk Stratification Score: 4 LUANNE % Risk: 20% Risk Objective Data Vital Signs: Vital Signs Temp Pulse Resp BP Pulse Ox O2 Del Method O2 Flow Rate 100.2 F H 82 26 H 95/77 95 Bi-pap 12 02/04/23 13:00 02/04/23 13:00 02/04/23 13:00 02/04/23 13:00 02/04/23 13:00 02/04/23 13:00 02/04/23 03:03 FiO2 45 02/04/23 13:00 Oxygen Flow Rate (L/min) 12 Oxygen Delivery Method Bi-pap Weight: 125 lb 7.088 oz Body Mass Index (BMI) 22.9 Intake & Output: Intake and Output for Last 24 Hours 02/02/23 02/03/23 02/04/23 23:59 23:59 23:59 Intake Total 701.67 / 701.67 Output Total 250 / 250 Balance 451.67 / 451.67 Lab / Micro Data 02/04/23 03:04 02/04/23 03:04 Labs: Laboratory Results - last 24 hr 02/04/23 03:04: WBC 14.2 H, RBC 4.73, Hgb 14.4, Hct 45.9, MCV 97.0 D, MCH 30.4, MCHC 31.4 L D, RDW Std Deviation 51.1 H, RDW Coeff of Nehemiah 14.1, Plt Count 279, MPV 11.0, Immature Gran % (Auto) 0.600, Neut % (Auto) 60.2, Lymph % (Auto) 27.9, [place] % (Auto) 10.4 H, Eos % (Auto) 0.4, Baso % (Auto) 0.5, Absolute Neuts (auto) 8.5 H, Absolute Lymphs (auto) 3.96, Nucleated RBC % 0, PT 13.7, INR 1.1, APTT 28.7, D-Dimer Quant (PE/DVT) 2.08 H*, Sodium 138, Potassium 4.3, Chloride 106, Carbon Dioxide 25.0, Anion Gap 7, BUN 8, Creatinine 1.06 H, Estim Creat Clear Calc 40.17, Est GFR (MDRD) Af Amer 66, Est GFR (MDRD) Non-Af 55 L, BUN/Creatinine Ratio 7.5 L, Glucose 236 H, Calcium 8.3 L, Troponin I High Sens 128 H* 02/04/23 03:18: Lactic Acid 1.6 02/04/23 04:07: Urine Color Yellow, Urine Clarity Clear, Urine pH 5.0, Ur Specific [place] 1.025, Urine Protein 100 H, Urine Glucose (UA) Normal, Urine Ketones Negative, Urine Occult Blood 250 H, Urine Nitrite Negative, Urine Bilirubin Negative, Urine Urobilinogen Normal, Ur Leukocyte Esterase 100 H, Urine RBC 0-5 SEEN, Urine WBC 25-50 SEEN, Ur Squamous Epith Cells 10-25 SEEN, Urine Bacteria 3+, Urine Mucus 0 SEEN 02/04/23 06:34: Troponin I High Sens 2716 H* ABG Data ABG results: ABG 02/04/23 02/04/23 02/04/23 03:25 04:23 07:45 Specimen Type ART ART ART Sample Site R Radial L Radial R Radial pH 7.16 L* 7.22 L 7.32 L Bicarbonate Actual 25.5 25.2 22.5 Total CO2 28 27 24 Base Excess -3 L -3 L -4 L O2 Saturation 86 L 92 L 93 L O2 % 48.0 50.0 45.0 ABG pCO2 72.4 H* 62.0 H 43.6 ABG pO2 67 L 77 71 L Zhang Test Positive Positive Positive Respiration Rate 12 14 14 O2 Delivery Device BiPAP BiPAP BiPAP Vent Mode Not entered Not entered Not entered Tidal Volume 500.0 500.0 500.0 POC PEEP 12 12 Crit Call To/Read Back Yes Clinical Comments avaps Cardiology Labs/Tests 02/04/23 03:04: WBC 14.2 H, RBC 4.73, Hgb 14.4, Hct 45.9, MCV 97.0 D, MCH 30.4, MCHC 31.4 L D, Plt Count 279, MPV 11.0, Immature Gran % (Auto) 0.600, Neut % (Auto) 60.2, Lymph % (Auto) 27.9, [place] % (Auto) 10.4 H, Eos % (Auto) 0.4, Baso % (Auto) 0.5, Absolute Neuts (auto) 8.5 H, Nucleated RBC % 0, PT 13.7, INR 1.1, APTT 28.7, D-Dimer Quant (PE/DVT) 2.08 H*, Sodium 138, Potassium 4.3, Chloride 106, Carbon Dioxide 25.0, Anion Gap 7, BUN 8, Creatinine 1.06 H, Est GFR (MDRD) Af Amer 66, Est GFR (MDRD) Non-Af 55 L, BUN/Creatinine Ratio 7.5 L, Glucose 236 H, Calcium 8.3 L 02/04/23 03:18: Lactic Acid 1.6 02/04/23 03:25: pH 7.16 L*, Bicarbonate Actual 25.5, Base Excess -3 L, O2 Saturation 86 L, ABG pCO2 72.4 H*, ABG pO2 67 L, Zhang Test Positive 02/04/23 04:07: Urine Color Yellow, Urine Clarity Clear, Urine pH 5.0, Ur Specific [place] 1.025, Urine Protein 100 H, Urine Glucose (UA) Normal, Urine Ketones Negative, Urine Occult Blood 250 H, Urine Nitrite Negative, Urine Bilirubin Negative, Urine Urobilinogen Normal, Ur Leukocyte Esterase 100 H, Urine RBC 0-5 SEEN, Urine WBC 25-50 SEEN 02/04/23 04:23: pH 7.22 L, Bicarbonate Actual 25.2, Base Excess -3 L, O2 Saturation 92 L, ABG pCO2 62.0 H, ABG pO2 77, Zhang Test Positive 02/04/23 07:45: pH 7.32 L, Bicarbonate Actual 22.5, Base Excess -4 L, O2 Saturation 93 L, ABG pCO2 43.6, ABG pO2 71 L, Zhang Test Positive Rhythm: SR with PAC's Radiography Diagnostic Testing: Radiology Impression Chest X-Ray 02/04/23 03:33 IMPRESSION: 1. Thickening of the interlobular septa likely due to interstitial edema which is new since the previous exam. 2. Slight right pleural effusion. Electronically Signed: Bakari Bledsoe MD at 3:49 EST , Chest CTA 02/04/23 04:19 IMPRESSION: 1. No pulmonary embolism or dissection. 2. Diffuse bronchial wall thickening bilaterally with scattered areas of mucus plugging bilaterally. 3. Spiculated pleural-based lesion measuring 1 cm left superior sulcus. Fleischner Society Guidelines recommend a follow-up chest CT in 6-12 months in patients with a low or high risk of malignancy. 4. Small foci of tree-in-bud nodular opacities in the apical posterior segment and the anterior segment of the left upper lobe may represent small foci of infection. 5. Emphysema. 6. Coronary artery disease. 7. Subsegmental atelectasis in the lingula. Electronically Signed: Bakari Bledsoe MD at 6:04 EST ,
--- NOTE | 2023-02-04 15:35 | CASEMGMT ---
Addendum entered by Maddy Garcia 02/04/23 16:10: [facility] is closed today and we are unable to verify home O2 orders. Caesar Garcia RN, CM Original Note: KENDALL DAY Assessment Face to Face with patient for initial transition planning/care coordination assessment. KENDALL DAY introduced self and role at [facility], pt voices understanding. Pt is A&Ox4 and is resting comfortably in bed and is calm. Pt is on BiPAP and is agreeable to answering questions. Care providers, pharmacy, and demographics verified. Admitting dx: Severe Acute RSV LACE Strata: 2 PCP: Harry Specialists: Pt states seeing an oncologist but could not specify. And a guest experience manager through [facility]. Pt also reports seeing a vascular specialist in [place]. Preferred Pharmacy: [facility] Insurance: [employer] Prescription Benefit: Yes LNOK: Eduardo Coronado (Son) POA/LW: Pt denies POA and living will and denied needing further information Living Arrangements: Pt states living alone with 4 animals in a 1 level duplex with 1 step to enter. Pt denies issues entering the home. ADLs/IADLs: Pt states complete independence with all ADLs and IADLs. Pt states there is 1 grab bar in the shower. Transportation: Pt drives. Pt SO and son can also drive her if needed. DME: Pt states wearing 2L O2 at night only via [place] through [facility]. Pt states she has a walker and a cane at home but does not use them. Pt reports that she utilizes a nebulizer and a pulse ox. Drugs/ Tobacco: Pt states she smokes half a pack of cigarettes per day. Pt also states that she smokes cannabis every day. HHC/SNF: Denies history. Pt states she would deny SNF placement but would be willing to accept HHC if warranted. Pt?s goal: Pt goal is to DC home to her animals with the support of her son or SO. Plan: The plan is to monitor pt status and see if she would be OK to DC home with no additional needs. Pt may need HHC post discharge. Will monitor for any increased home O2 needs. Green sheet on chart for home O2. Caesar Garcia RN, CM
[2023-02-04] MEDS: LORazepam 1 MG Tablet PO (20:28)
[2023-02-04] MEDS: Hydrocortisone 10 MG Tablet PO (20:28)
[2023-02-05] VITALS (36 sets, daily range): BP systolic 102–148; BP diastolic 23–90; PULSE 60–106; RESP 12–38; TEMP 37.1–37.9; O2SAT 92–98; BMI 23.7
[2023-02-05] MEDS: Ipratropium/Albuterol Sulfate 3 ML AMPUL.NEB INHALATION ×4 (02:19→18:49)
[2023-02-05 03:46] LABS: Absolute Lymphocyte Count 0.64 X10^3/uL (0.83-4.51); Absolute Neutrophil Count 7.9 X10^3/uL (2.0-7.7); Basophil# 0.01 X10^3/uL; Basophil% 0.1 % (0-1); Hematocrit 36.5 % (37-47); Hemoglobin 11.7 g/dL (12.0-15.0); Lymphocyte # 0.64 X10^3/ul (0.83-4.51); Lymphocyte % 7.1 % (19-41); Mean Corp Hgb Conc 32.1 g/dL (32-36); Mean Corpuscular Hgb 31.1 pg (27.0-32.0); Mean Corpuscular Volume 97.1 fL (81-99); Mean Platelet Vol. 10.3 fl (6.2-12.0); Monocyte# 0.49 X10^3/uL; Monocyte% 5.4 % (0-10); NRBC Flagged by Analyzer 0 % (0-5); Neutrophil # 7.87 X10^3/uL (2.7-7.7); Neutrophil % 86.7 % (47-70); Platelet Count 149 K/mm3 (150-450); RBC Distribution Width CV 14.3 % (11.6-14.6); RBC Distribution Width SD 51.1 fl (35.1-43.9); Red Blood Count 3.76 M/mm3 (4.2-5.4); White Blood Count 9.1 K/mm3 (4.4-11.0)
[2023-02-05 04:11] LABS: ALB/GLOB Ratio 0.8 RATIO (0.9-2.4); AST(SGOT) 47 U/L (15-37); Alanine Aminotransfer ALT/SGPT 37 U/L (13-56); Albumin, Serum 2.6 g/dL (3.2-5.0); Alkaline Phosphatase 49 U/L (45-117); Anion Gap 5 (5-15); BUN 19 mg/dL (7-18); BUN/Creat Ratio 23.7 RATIO (10-20); Calcium,Total 7.2 mg/dL (8.5-10.1); Chloride 114 mmol/L (98-107); EST Glomerular Filtration Rate 76 mL/min (>60); Est Glom Filt Rate - Afr Amer 91 mL/min (>60); Estimated Creatinine Clearance 53.23 ml/min; Globulin 3.4 g/dL (2.2-4.2); Glucose 129 mg/dL (74-106); Magnesium 1.9 mg/dL (1.6-2.6); Phosphorus 2.8 mg/dL (2.5-4.9); Sodium Level 143 mmol/L (136-145); Thyroid Stim Hormone (TSH) 0.41 uIU/mL (0.358-3.74)
[2023-02-05] MEDS: 0.9% Normal Saline (1000mL) 1,000 ML 100 ML IV ×3 (04:57→23:49)
[2023-02-05] MEDS: Hydrocortisone 10 MG Tablet 20 MG PO (06:23)
--- NOTE | 2023-02-05 06:41 | PN.CC_ITS ---
Assessment & Plan Assessment/Plan (1) Acute hypercapnic respiratory failure: (2) Urinary tract infection: (3) Sepsis: (4) RSV bronchitis: (5) Tobacco abuse: PLAN: Plan RECOMMENDATIONS: 1. Defer to cardiology on possible interventions 2. Continue steroids, bronchodilators 3. BiPAP breaks as tolerated. Continue BiPAP with sleep. 4. Discontinue antibiotics of urine culture negative 5. Increase activity as tolerated 6. Wean oxygen as tolerated IMPRESSIONS: 1. Acute combined respiratory failure secondary to RSV pneumonitis in the setting of probable COPD exacerbation Patient does have an extensive smoking history with stigmata consistent with COPD previously. Patient also has a history of squamous cell lung carcinoma that is in reported remission. Patient has responded well to BiPAP clinically. Will continue with BiPAP for now. Patient does state she would be willing to be intubated if necessary. Will continue broad-spectrum antibiotics for now, but if culture negative, likely discontinue antibiotics at 48 hours. Symptomatic control of fever will be helpful. Patient is in appropriate isolati on. 2. Elevated troponin Unclear etiology. Patient was tachycardic and does have an extensive cardiac history. However, patient was also severely hypoxic on presentation. Echocardiogram is showing severe depression of EF and possible mobile mass. Cardiology has been consulted. Patient is on a heparin drip for now. Await recommendations. If blood cultures are positive, patient may need a EZ. Patient has not been significantly hypotensive 3. Possible UTI Patient does have significant bacteria and leukocyte esterase on UA. Ho wever, patient also has several squamous cells. If cultures are negative, ceftriaxone can likely be discontinued. CT of the chest is consistent with a viral etiology 4. Metabolic encephalopathy secondary to hypercarbia secondary to problem #1 Patient appears to be improving significantly with BiPAP therapy. Continue with delirium protocol. Patient will be at risk given need for BiPAP and steroids for development of delirium moving forward. 5. History of GI bleed/adrenal insufficiency/osteoarthritis/peripheral vascular disease/continued smoking/lack of pulmonary care Complicates care, management, recovery and prognosis. Okay to continue hydrocortisone in addition to Solu-Medrol. Patient does have a history of SVT. Heart rate better controlled on metoprolol Subjective Subjective Patient did okay overnight. Patient has been on BiPAP for most of the evening with only short breaks. Patient continues to have cough. Patient states that she gets her care in [place]. Patient does have a long cardiac history, but is not aware of her previous EF. Objective Data Objective Data Echocardiogram shows significant decrease in EF and a possible mobile mass. Vital Signs: Vital Signs Temp Pulse Resp BP Pulse Ox O2 Del Method O2 Flow Rate 37.8 C H 96 27 H 117/72 92 Nasal Cannula 10 02/05/23 06:00 02/05/23 06:37 02/05/23 06:37 02/05/23 06:00 02/05/23 06:37 02/05/23 06:25 02/05/23 06:25 FiO2 35 02/05/23 06:37 Oxygen Flow Rate (L/min) 10 Oxygen Delivery Method Nasal Cannula Weight: 58.5 kg Body Mass Index (BMI) 23.7 Intake & Output: Intake and Output for Last 24 Hours 02/03/23 02/04/23 02/05/23 23:59 23:59 23:59 Intake Total 1575.00 / 1575.00 943.33 / 943.33 Output Total 700 / 700 140 / 140 Balance 875.00 / 875.00 803.33 / 803.33 Lab / Micro Data Attestation: I reviewed the patient's lab results. 02/05/23 03:40 02/05/23 03:40 Labs: Laboratory Results - last 24 hr 02/04/23 06:34: Troponin I High Sens 2716 H* 02/05/23 03:40: WBC 9.1, RBC 3.76 L, Hgb 11.7 L, Hct 36.5 L, MCV 97.1, MCH 31.1, MCHC 32.1, RDW Std Deviation 51.1 H, RDW Coeff of Nehemiah 14.3, Plt Count 149 L, MPV 10.3, Immature Gran % (Auto) 0.700, Neut % (Auto) 86.7 H, Lymph % (Auto) 7.1 L, [place] % (Auto) 5.4, Eos % (Auto) 0.0, Baso % (Auto) 0.1, Absolute Neuts (auto) 7.9 H, Absolute Lymphs (auto) 0.64 L, Nucleated RBC % 0, Sodium 143, Potassium 4.0, Chloride 114 H, Carbon Dioxide 24.0, Anion Gap 5, BUN 19 H, Creatinine 0.80, Estim Creat Clear Calc 53.23, Est GFR (MDRD) Af Amer 91, Est GFR (MDRD) Non-Af 76, BUN/Creatinine Ratio 23.7 H, Glucose 129 H, Calcium 7.2 L, Phosphorus 2.8, Magnesium 1.9, Total Bilirubin 0.30, AST 47 H, ALT 37, Alkaline Phosphatase 49, Total Protein 6.0 L, Albumin 2.6 L, Globulin 3.4, Albumin/Globulin Ratio 0.8 L, TSH 0.41 ABG Data ABG results: ABG 02/04/23 07:45 Specimen Type ART Sample Site R Radial pH 7.32 L Bicarbonate Actual 22.5 Total CO2 24 Base Excess -4 L O2 Saturation 93 L O2 % 45.0 ABG pCO2 43.6 ABG pO2 71 L Zhang Test Positive Respiration Rate 14 O2 Delivery Device BiPAP Vent Mode Not entered Tidal Volume 500.0 POC PEEP 12 Clinical Comments avaps Radiography Diagnostic Testing: Radiology Impression Echocardiogram 02/04/23 06:28 Interpretation Summary The estimated ejection fraction is 10-15 %. Severe global left ventricular systolic dysfunction. Severe segmental systolic dysfunction (see wall motion). Mild (1+) mitral valve insufficiency. Mild to moderate (1-2+) tricuspid valve insufficiency. Mild diffuse aortic valve thickening. Compared to previous echo, the LV systolic function has worsened drastically. Cannot exclude mobile mass on posterior medial mitral valve papilary/chordea. Recommend EZ if clinically indicated. The study was technically difficult. Contrast injection was performed. Ordering Physician: Prince Ortega Referring Physician: PATSY STAFFORD Performed By: Mita Buckner RDCS Physical Exam Const alert and oriented x3 Constitutional Narrative: Good BiPAP synchrony. Conversational dyspnea noted. Slightly better co nversational status off BiPAP today than yesterday General Appearance: cooperative HEENT normocephalic, head/scalp atraumatic and hearing grossly normal bilaterally Eyes PERRL, EOMs intact bilaterally and conjunctivae normal Neck no lymphadenopathy and supple Resp normal respiratory effort Effort and Inspection: prolonged expiratory phase Auscultation: wheezes; Negative for rales or rhonchi Cardio regular rhythm, S1 normal heart sound, S2 normal heart sound, no murmurs, no rub and no gallops Rate: tachycardic GI normal to inspection, nondistended, normoactive bowel sounds, soft to palpation, non-tender and non-distended Extremity normal to inspection General Extremity: clubbing; Negative for edema Skin no rashes or lesions noted Neuro oriented x3, CN's II-XII intact bilaterally, moves all extremities and no focal motor deficits Psych Activity / Motor Behavior: restless Mood & Affect: anxious Charges/Coding Visit Charges Inpatient E&M: 97837 [facility] L[facility]
[2023-02-05] MEDS: Metoprolol Tartrate 25 MG Tablet PO ×2 (08:18→19:55)
[2023-02-05] MEDS: Aspirin E.C. 81 MG Tablet PO (08:18)
[2023-02-05] MEDS: Cilostazol 50 MG Tablet PO ×2 (08:19→19:56)
[2023-02-05] MEDS: Escitalopram Oxalate 20 MG Tablet PO (08:19)
[2023-02-05] MEDS: TICAGRELOR 90 MG TABLET PO ×2 (08:19→19:56)
[2023-02-05] MEDS: Enoxaparin 60 MG/0.6 ML Syringe SC ×2 (08:20→19:56)
[2023-02-05] MEDS: Pantoprazole Sodium 40 MG in 0.9% Normal Saline (100mL MB+) 100 ML 330 MG IV (08:20)
[2023-02-05] MEDS: CHLORHEXIDINE GLUC 2% CLOTH 1 EACH TOWELETTE TOPICAL (08:21)
[2023-02-05] MEDS: Ceftriaxone 1 GM/50 ML BAG IV (08:47)
--- NOTE | 2023-02-05 09:03 | PN.HOSP_ITS ---
Subjective Subjective Maintaining her saturations on BiPAP, no new issues overnight Objective Data Objective Data Vital Signs: Vital Signs Temp Pulse Resp BP Pulse Ox O2 Del Method O2 Flow Rate 100.2 F H 92 22 H 117/77 94 Bi-pap 10 02/05/23 08:00 02/05/23 09:00 02/05/23 09:00 02/05/23 09:00 02/05/23 09:00 02/05/23 09:00 02/05/23 06:25 FiO2 35 02/05/23 09:00 Oxygen Flow Rate (L/min) 10 Oxygen Delivery Method Bi-pap Weight: 128 lb 15.527 oz Body Mass Index (BMI) 23.7 Intake & Output: Intake and Output for Last 24 Hours 02/04/23 02/05/23 02/06/23 03:59 03:59 03:59 Intake Total 1575.00 / 1575.00 1053.33 / 1053.33 Output Total 700 / 700 140 / 140 Balance 875.00 / 875.00 913.33 / 913.33 Lab / Micro Data 02/05/23 03:40 02/05/23 03:40 Labs: Laboratory Results - last 24 hr 02/05/23 03:40: WBC 9.1, RBC 3.76 L, Hgb 11.7 L, Hct 36.5 L, MCV 97.1, MCH 31.1, MCHC 32.1, RDW Std Deviation 51.1 H, RDW Coeff of Nehemiah 14.3, Plt Count 149 L, MPV 10.3, Immature Gran % (Auto) 0.700, Neut % (Auto) 86.7 H, Lymph % (Auto) 7.1 L, [place] % (Auto) 5.4, Eos % (Auto) 0.0, Baso % (Auto) 0.1, Absolute Neuts (auto) 7.9 H, Absolute Lymphs (auto) 0.64 L, Nucleated RBC % 0, Sodium 143, Potassium 4.0, Chloride 114 H, Carbon Dioxide 24.0, Anion Gap 5, BUN 19 H, Creatinine 0.80, Estim Creat Clear Calc 53.23, Est GFR (MDRD) Af Amer 91, Est GFR (MDRD) Non-Af 76, BUN/Creatinine Ratio 23.7 H, Glucose 129 H, Calcium 7.2 L, Phosphorus 2.8, Magnesium 1.9, Total Bilirubin 0.30, AST 47 H, ALT 37, Alkaline Phosphatase 49, Total Protein 6.0 L, Albumin 2.6 L, Globulin 3.4, Albumin/Globulin Ratio 0.8 L, TSH 0.41 Radiography Diagnostic Testing: Radiology Impression Echocardiogram 02/04/23 06:28 Interpretation Summary The estimated ejection fraction is 10-15 %. Severe global left ventricular systolic dysfunction. Severe segmental systolic dysfunction (see wall motion). Mild (1+) mitral valve insufficiency. Mild to moderate (1-2+) tricuspid valve insufficiency. Mild diffuse aortic valve thickening. Compared to previous echo, the LV systolic function has worsened drastically. Cannot exclude mobile mass on posterior medial mitral valve papilary/chordea. Recommend EZ if clinically indicated. The study was technically difficult. Contrast injection was performed. Ordering Physician: Prince Ortega Referring Physician: PATSY STAFFORD Performed By: Mita Buckner RDCS Physical Exam Narrative General: Alert, Oriented x3, Cooperative, No apparent distress HEENT: Atraumatic, PERRLA, EOMI, Normocephalic Oral: Moist Mucosa Neck: Supple, No JVD Lungs: Diminished, Normal air movement, No rhonchi, wheeze, No rales Cardiovascular: Tachycardic, Regular Rhythm, Normal S1, Normal S2, No murmurs Abdomen: Soft, Non Tender, Non-Distended, No Hepato-splenomegaly Extremities: No edema, Capillary Refill Less than 3 Seconds Skin: No rashes, No breakdown Musculoskeletal: No Tenderness to Palpation of Joints or Extremities Neurological: Cranial nerves II-XII grossly intact, Motor Exam 5/5 strength throughout, Sensory exam intact to light touch and pain Psych/Mental Status: Anxious Assessment & Plan Assessment/Plan (1) RSV bronchitis: (2) Secondary bacterial pneumonia: (3) COPD exacerbation: (4) Acute respiratory failure: QUALIFIERS: Respiratory failure complication: hypoxia and hypercapnia Qualified Code(s): J96.01 - Acute respiratory failure with hypoxia; J96.02 - Acute respiratory failure with hypercapnia (5) Elevated troponin I level: (6) Acute metabolic encephalopathy: PLAN: Plan 1. Acute combined respiratory failure secondary to RSV pneumonitis in the setting of COPD exacerbation/metabolic encephalopathy/tobacco abuse ? Continue with BiPAP ? Continue antibiotics until cultures finalize ? She probably does have a history of COPD will continue with inhalers as well as steroids ? The encephalopathy appears to be improving ? She does have a history of stage IV lung cancer that treated however she continues to smoke 2. HTN/HLD/carotid stenosis/peripheral artery disease/elevated troponin/chronic systolic CHF ? Echo with significant reduced EF to 10 to 15% and there is the possibility of a mobile mass on the mitral valve ? Continue with antibiotics if blood cultures do come back positive we will need to proceed with a EZ otherwise consulted cardiology and appreciate their recommendations ? ? We will continue with blood pressure medications and monitor make adjustments as necessary 3. GERD with history of GI bleed ? Continue with PPI ? Stable 4. Adrenal insufficiency ? Continue with hydrocortisone and Solu-Medrol DVT: Therapeutic Lovenox Charges/Coding Visit Charges Inpatient E&M: 19108 Subs Hosp L2
[2023-02-05] MEDS: Azithromycin 500 MG in Dextrose 5%-Water (250mL Bag) 250 ML 250 MG IV (11:05)
[2023-02-05] MEDS: Hydrocortisone 10 MG Tablet PO (18:19)
[2023-02-05] MEDS: LORazepam 1 MG Tablet PO (19:56)
[2023-02-06] VITALS (35 sets, daily range): BP systolic 99–145; BP diastolic 42–88; PULSE 69–112; RESP 14–29; TEMP 36.3–37.3; O2SAT 90–100; BMI 24.3
[2023-02-06] MEDS: Ipratropium/Albuterol Sulfate 3 ML AMPUL.NEB INHALATION ×4 (01:54→18:55)
[2023-02-06 05:06] LABS: Absolute Lymphocyte Count 0.59 X10^3/uL (0.83-4.51); Absolute Neutrophil Count 8.5 X10^3/uL (2.0-7.7); Basophil# 0.01 X10^3/uL; Basophil% 0.1 % (0-1); Hematocrit 35.1 % (37-47); Hemoglobin 11.3 g/dL (12.0-15.0); Lymphocyte # 0.59 X10^3/ul (0.83-4.51); Lymphocyte % 6.1 % (19-41); Mean Corp Hgb Conc 32.2 g/dL (32-36); Mean Corpuscular Volume 96.4 fL (81-99); Mean Platelet Vol. 10.9 fl (6.2-12.0); Monocyte# 0.56 X10^3/uL; Monocyte% 5.7 % (0-10); NRBC Flagged by Analyzer 0 % (0-5); Neutrophil # 8.49 X10^3/uL (2.7-7.7); Neutrophil % 87.2 % (47-70); POSITIVE DIFFERENTIAL YES; Platelet Count 165 K/mm3 (150-450); RBC Distribution Width CV 14.3 % (11.6-14.6); RBC Distribution Width SD 50.7 fl (35.1-43.9); Red Blood Count 3.64 M/mm3 (4.2-5.4); White Blood Count 9.7 K/mm3 (4.4-11.0)
[2023-02-06 05:10] LABS: Differential Indicated SCAN CRITERIA MET
[2023-02-06 05:27] LABS: ALB/GLOB Ratio 0.7 RATIO (0.9-2.4); AST(SGOT) 53 U/L (15-37); Alanine Aminotransfer ALT/SGPT 47 U/L (13-56); Albumin, Serum 2.4 g/dL (3.2-5.0); Alkaline Phosphatase 46 U/L (45-117); Anion Gap 4 (5-15); BUN 20 mg/dL (7-18); BUN/Creat Ratio 42.4 RATIO (10-20); Calcium,Total 7.7 mg/dL (8.5-10.1); Chloride 114 mmol/L (98-107); Creatinine, Serum 0.47 mg/dL (0.55-1.02); EST Glomerular Filtration Rate 139 mL/min (>60); Est Glom Filt Rate - Afr Amer 169 mL/min (>60); Estimated Creatinine Clearance 42.59 ml/min; Globulin 3.6 g/dL (2.2-4.2); Glucose 109 mg/dL (74-106); Potassium 4.5 mmol/L (3.5-5.1); Sodium Level 142 mmol/L (136-145)
[2023-02-06 06:32] LABS: Differential Comment SCANNNED
[2023-02-06] MEDS: Hydrocortisone 10 MG Tablet 20 MG PO (06:39)
--- NOTE | 2023-02-06 07:13 | PCM.PN.INT ---
Assessment & Plan Assessment/Plan (1) Acute hypercapnic respiratory failure: (2) Urinary tract infection: (3) Sepsis: (4) RSV bronchitis: (5) Tobacco abuse: PLAN: Plan RECOMMENDATIONS: 1. Defer to cardiology on possible interventions 2. Wean steroids. Continue bronchodilators 3. BiPAP breaks as tolerated. Continue BiPAP with sleep. 4. Complete a 5-day course of antibiotics for UTI 5. Increase activity as tolerated 6. Wean oxygen as tolerated 7. Discontinue IV fluids. Initiate diet. IMPRESSIONS: 1. Acute combined respiratory failure secondary to RSV pneumonitis in the setting of probable COPD exacerbation Patient does have an extensive smoking history with stigmata consistent with COPD previously. Patient also has a history of squamous cell lung carcinoma that is in reported remission. Patient has responded well to BiPAP clinically. Will continue with BiPAP for now, but encourage better breaks during the day. Patient does state she would be willing to be intubated if necessary. Urine currently growing gram-negative, so will complete 5 days of antibiotics. Symptomatic control of fever will be helpful. Patient is in appropriate isolation. 2. Elevated troponin Unclear etiology. Patient was tachycardic and does have an extensive cardiac history. However, patient was also severely hypoxic on presentation. Echocardiogram is showing severe depression of EF and possible mobile mass. Blood cultures are negative at this time. Cardiology has been consulted. Patient is on a heparin drip for now. Await recommendations. Patient has not been significantly hypotensive 3. Gram-negative UTI Patient does have significant bacteria and leukocyte esterase on UA. However, patient also has several squamous cells. Anticipate 5 days of antibiotics given patient has not been bacteremic or hypotensive. CT of the chest is consistent with a viral etiology 4. Metabolic encephalopathy secondary to hypercarbia secondary to problem #1 Improving. Patient appears to be improving significantly with BiPAP therapy. Continue with delirium protocol. Patient will be at risk given need for BiPAP and steroids for development of delirium moving forward. Still with significant anxiety 5. History of GI bleed/adrenal insufficiency/osteoarthritis/peripheral vascular disease/continued smoking/lack of pulmonary care Complicates care, management, recovery and prognosis. Okay to continue hydrocortisone in addition to Solu-Medrol. Patient does have a history of SVT. Heart rate better controlled on metoprolol Subjective Subjective Patient did okay yesterday. Patient was able to come off of BiPAP for approximately 4 hours last evening, but slept overnight on BiPAP. Patient continues to have coughing episodes with desaturations. Patient states she is hungry. Objective Data Objective Data Vital Signs: Vital Signs Temp Pulse Resp BP Pulse Ox O2 Del Method O2 Flow Rate 37.3 C 90 24 H 137/71 H 90 High Flow 4 02/06/23 07:00 02/06/23 07:00 02/06/23 07:00 02/06/23 07:00 02/06/23 07:00 02/06/23 07:00 02/06/23 07:00 FiO2 35 02/06/23 06:00 Oxygen Flow Rate (L/min) 4 Oxygen Delivery Method High Flow Weight: 60.1 kg Body Mass Index (BMI) 24.3 Intake & Output: Intake and Output for Last 24 Hours 02/04/23 02/05/23 02/06/23 23:59 23:59 23:59 Intake Total 1575.00 / 1575.00 3240.00 / 3240.00 0 / 0 Output Total 700 / 700 240 / 240 300 / 300 Balance 875.00 / 875.00 3000.00 / 3000.00 -300 / -300 Lab / Micro Data Attestation: I reviewed the patient's lab results. 02/06/23 04:40 02/06/23 04:40 Labs: Laboratory Results - last 24 hr 02/06/23 04:40: WBC 9.7, RBC 3.64 L, Hgb 11.3 L, Hct 35.1 L, MCV 96.4, MCH 31.0, MCHC 32.2, RDW Std Deviation 50.7 H, RDW Coeff of Nehemiah 14.3, Plt Count 165, MPV 10.9, Immature Gran % (Auto) 0.900, Neut % (Auto) 87.2 H, Lymph % (Auto) 6.1 L, [place] % (Auto) 5.7, Eos % (Auto) 0.0, Baso % (Auto) 0.1, Absolute Neuts (auto) 8.5 H, Absolute Lymphs (auto) 0.59 L, Nucleated RBC % 0, Differential Comment SCANNNED, Sodium 142, Potassium 4.5, Chloride 114 H, Carbon Dioxide 24.0, Anion Gap 4 L, BUN 20 H, Creatinine 0.47 L, Estim Creat Clear Calc 42.59, Est GFR (MDRD) Af Amer 169, Est GFR (MDRD) Non-Af 139, BUN/Creatinine Ratio 42.4 H, Glucose 109 H, Calcium 7.7 L, Total Bilirubin 0.40, AST 53 H, ALT 47, Alkaline Phosphatase 46, Total Protein 6.0 L, Albumin 2.4 L, Globulin 3.6, Albumin/Globulin Ratio 0.7 L Micro: Microbiology 02/04/23 03:18 Blood Culture (Wb) - Left Hand Blood Culture - Preliminary No growth in 48 hours. 02/04/23 03:27 Blood Culture (Wb) - Anticubital Left Blood Culture - Preliminary No growth in 48 hours. 02/04/23 04:07 Urine, Clean Catch Urine Culture - Preliminary GNR lactose motor and generator brush cutter GNR lactose motor and generator brush cutter#2 Physical Exam Const alert and oriented x3 Constitutional Narrative: On nasal cannula during my evaluation General Appearance: cooperative HEENT normocephalic, head/scalp atraumatic and hearing grossly normal bilaterally Eyes PERRL, EOMs intact bilaterally and conjunctivae normal Neck no lymphadenopathy and supple Resp normal respiratory effort Effort and Inspection: prolonged expiratory phase Auscultation: wheezes; Negative for rales or rhonchi Cardio regular rhythm, S1 normal heart sound, S2 normal heart sound, no murmurs, no rub and no gallops Rate: tachycardic GI normal to inspection, nondistended, normoactive bowel sounds, soft to palpation, non-tender and non-distended Extremity normal to inspection General Extremity: clubbing; Negative for edema Skin no rashes or lesions noted Neuro oriented x3, CN's II-XII intact bilaterally, moves all extremities and no focal motor deficits Psych Activity / Motor Behavior: restless Mood & Affect: anxious Charges/Coding Visit Charges Inpatient E&M: 46438 Subs Hosp L3
[2023-02-06] MEDS: 0.9% Saline Lock 10 ML Syringe IV (07:47)
[2023-02-06] MEDS: Furosemide 20 MG/2 ML VIAL IV (07:47)
[2023-02-06] MEDS: Enoxaparin 60 MG/0.6 ML Syringe SC (07:57)
[2023-02-06] MEDS: TICAGRELOR 90 MG TABLET PO ×2 (07:58→20:48)
[2023-02-06] MEDS: Aspirin E.C. 81 MG Tablet PO (07:58)
[2023-02-06] MEDS: Metoprolol Tartrate 25 MG Tablet PO ×2 (07:58→20:30)
[2023-02-06] MEDS: Cilostazol 50 MG Tablet PO ×2 (07:58→20:30)
[2023-02-06] MEDS: Escitalopram Oxalate 20 MG Tablet PO (07:58)
[2023-02-06] MEDS: Pantoprazole Sodium 40 MG in 0.9% Normal Saline (100mL MB+) 100 ML 330 MG IV (07:59)
--- NOTE | 2023-02-06 08:22 | PCM.PN.HOSP ---
Subjective Subjective Intermittently off the BiPAP however still requiring 10 L of oxygen. She is about 3 L positive so remaining solution discontinued by the sampler pickup and will decrease her steroids Objective Data Objective Data Vital Signs: Vital Signs Temp Pulse Resp BP Pulse Ox O2 Del Method O2 Flow Rate 97.5 F L 112 H 29 H 145/75 H 95 High Flow 10 02/06/23 08:00 02/06/23 08:00 02/06/23 08:00 02/06/23 08:00 02/06/23 08:00 02/06/23 08:00 02/06/23 08:00 FiO2 35 02/06/23 06:00 Oxygen Flow Rate (L/min) 10 Oxygen Delivery Method High Flow Weight: 132 lb 7.965 oz Body Mass Index (BMI) 24.3 Intake & Output: Intake and Output for Last 24 Hours 02/05/23 02/06/23 02/07/23 03:59 03:59 03:59 Intake Total 1575.00 / 1575.00 3240.00 / 3240.00 763.33 / 763.33 Output Total 700 / 700 240 / 240 300 / 300 Balance 875.00 / 875.00 3000.00 / 3000.00 463.33 / 463.33 Lab / Micro Data 02/06/23 04:40 02/06/23 04:40 Labs: Laboratory Results - last 24 hr 02/06/23 04:40: WBC 9.7, RBC 3.64 L, Hgb 11.3 L, Hct 35.1 L, MCV 96.4, MCH 31.0, MCHC 32.2, RDW Std Deviation 50.7 H, RDW Coeff of Nehemiah 14.3, Plt Count 165, MPV 10.9, Immature Gran % (Auto) 0.900, Neut % (Auto) 87.2 H, Lymph % (Auto) 6.1 L, [place] % (Auto) 5.7, Eos % (Auto) 0.0, Baso % (Auto) 0.1, Absolute Neuts (auto) 8.5 H, Absolute Lymphs (auto) 0.59 L, Nucleated RBC % 0, Differential Comment SCANNNED, Sodium 142, Potassium 4.5, Chloride 114 H, Carbon Dioxide 24.0, Anion Gap 4 L, BUN 20 H, Creatinine 0.47 L, Estim Creat Clear Calc 42.59, Est GFR (MDRD) Af Amer 169, Est GFR (MDRD) Non-Af 139, BUN/Creatinine Ratio 42.4 H, Glucose 109 H, Calcium 7.7 L, Total Bilirubin 0.40, AST 53 H, ALT 47, Alkaline Phosphatase 46, Total Protein 6.0 L, Albumin 2.4 L, Globulin 3.6, Albumin/Globulin Ratio 0.7 L Micro: Microbiology 02/04/23 04:07 Urine, Clean Catch Urine Culture - Preliminary Escherichia coli GNR lactose programmer business#2 02/04/23 03:18 Blood Culture (Wb) - Left Hand Blood Culture - Preliminary No growth in 48 hours. 02/04/23 03:27 Blood Culture (Wb) - Anticubital Left Blood Culture - Preliminary No growth in 48 hours. Physical Exam Narrative General: Alert, Oriented x3, Cooperative, No apparent distress HEENT: Atraumatic, PERRLA, EOMI, Normocephalic Oral: Moist Mucosa Neck: Supple, No JVD Lungs: Diminished, Normal air movement, No rhonchi, wheeze, No rales Cardiovascular: Tachycardic, Regular Rhythm, Normal S1, Normal S2, No murmurs Abdomen: Soft, Non Tender, Non-Distended, No Hepato-splenomegaly Extremities: No edema, Capillary Refill Less than 3 Seconds Skin: No rashes, No breakdown Musculoskeletal: No Tenderness to Palpation of Joints or Extremities Neurological: Cranial nerves II-XII grossly intact, Motor Exam 5/5 strength throughout, Sensory exam intact to light touch and pain Psych/Mental Status: Anxious Assessment & Plan Assessment/Plan (1) RSV bronchitis: (2) Secondary bacterial pneumonia: (3) COPD exacerbation: (4) Acute respiratory failure: QUALIFIERS: Respiratory failure complication: hypoxia and hypercapnia Qualified Code(s): J96.01 - Acute respiratory failure with hypoxia; J96.02 - Acute respiratory failure with hypercapnia (5) Elevated troponin I level: (6) Acute metabolic encephalopathy: PLAN: Plan 1. Acute combined respiratory failure secondary to RSV pneumonitis in the setting of COPD exacerbation/metabolic encephalopathy/tobacco abuse ? Continue with BiPAP ? Continue antibiotics until cultures finalize ? She probably does have a history of COPD will continue with inhalers as well as steroids ? The encephalopathy appears to be improving ? She does have a history of stage IV lung cancer that treated however she continues to smoke 2. HTN/HLD/carotid stenosis/peripheral artery disease/elevated troponin/chronic systolic CHF ? Echo with significant reduced EF to 10 to 15% and there is the possibility of a mobile mass on the mitral valve ? Continue with antibiotics if blood cultures do come back positive we will need to proceed with a EZ otherwise consulted cardiology and appreciate their recommendations ? ? We will continue with blood pressure medications and monitor make adjustments as necessary 3. GERD with history of GI bleed ? Continue with PPI ? Stable 4. Adrenal insufficiency ? Continue with hydrocortisone and Solu-Medrol DVT: Therapeutic Lovenox Charges/Coding Visit Charges Inpatient E&M: 05483 Subs Hosp L2
[2023-02-06] MEDS: Azithromycin 500 MG in Dextrose 5%-Water (250mL Bag) 250 ML 250 MG IV (09:25)
[2023-02-06] MEDS: CHLORHEXIDINE GLUC 2% CLOTH 1 EACH TOWELETTE TOPICAL (09:25)
[2023-02-06] MEDS: Ceftriaxone 1 GM/50 ML BAG IV (10:52)
[2023-02-06] MEDS: Ensure Plus High Protein 120 ML LIQUID PO ×2 (13:36→17:18)
[2023-02-06] MEDS: Hydrocortisone 10 MG Tablet PO (17:18)
[2023-02-06] MEDS: LORazepam 1 MG Tablet PO (20:31)
[2023-02-07] VITALS (35 sets, daily range): BP systolic 85–150; BP diastolic 43–100; PULSE 76–123; RESP 14–28; TEMP 36.6–37.3; O2SAT 18–99; BMI 24.0
[2023-02-07] MEDS: Ipratropium/Albuterol Sulfate 3 ML AMPUL.NEB INHALATION ×4 (00:53→19:05)
[2023-02-07 03:51] LABS: Absolute Neutrophil Count 6.8 X10^3/uL (2.0-7.7); Basophil# 0.02 X10^3/uL; Basophil% 0.3 % (0-1); Hematocrit 34.7 % (37-47); Hemoglobin 11.1 g/dL (12.0-15.0); Lymphocyte % 8.9 % (19-41); Mean Corpuscular Hgb 30.3 pg (27.0-32.0); Mean Corpuscular Volume 94.8 fL (81-99); Mean Platelet Vol. 10.4 fl (6.2-12.0); Monocyte# 0.29 X10^3/uL; Monocyte% 3.7 % (0-10); NRBC Flagged by Analyzer 0 % (0-5); Neutrophil # 6.82 X10^3/uL (2.7-7.7); Neutrophil % 86.3 % (47-70); POSITIVE MORPHOLOGY YES; Platelet Count 161 K/mm3 (150-450); RBC Distribution Width CV 13.9 % (11.6-14.6); RBC Distribution Width SD 48.3 fl (35.1-43.9); Red Blood Count 3.66 M/mm3 (4.2-5.4); White Blood Count 7.9 K/mm3 (4.4-11.0)
[2023-02-07 03:56] LABS: Differential Indicated SCAN CRITERIA MET
[2023-02-07 04:09] LABS: Anion Gap 5 (5-15); BUN 21 mg/dL (7-18); BUN/Creat Ratio 39.5 RATIO (10-20); Calcium,Total 7.8 mg/dL (8.5-10.1); Chloride 108 mmol/L (98-107); Creatinine, Serum 0.53 mg/dL (0.55-1.02); EST Glomerular Filtration Rate 122 mL/min (>60); Est Glom Filt Rate - Afr Amer 147 mL/min (>60); Estimated Creatinine Clearance 42.59 ml/min; Glucose 126 mg/dL (74-106); Magnesium 2.1 mg/dL (1.6-2.6); Potassium 3.6 mmol/L (3.5-5.1); Sodium Level 142 mmol/L (136-145)
[2023-02-07] MEDS: Potassium Phosphate 40 MMOL in 0.9% Normal Saline (500mL Bag) 500 ML 62.5 MMOL IV (05:00)
--- NOTE | 2023-02-07 06:01 | PN.CC_ITS ---
Assessment & Plan Assessment/Plan (1) Acute hypercapnic respiratory failure: (2) Urinary tract infection: (3) Sepsis: (4) RSV bronchitis: (5) Tobacco abuse: PLAN: Plan RECOMMENDATIONS: 1. Defer to cardiology on possible interventions 2. Keep steroids at current dose for now. Continue bronchodilators 3. BiPAP breaks as tolerated. Continue BiPAP with sleep. 4. Complete a 5-day course of antibiotics for UTI 5. Increase activity as tolerated 6. Wean oxygen as tolerated 7. Challenge with diuretic therapy IMPRESSIONS: 1. Acute combined respiratory failure secondary to RSV pneumonitis in the setting of probable COPD exacerbation Patient does have an extensive smoking history with stigmata consistent with COPD previously. Patient also has a history of squamous cell lung carcinoma that is in reported remission. Patient has responded well to BiPAP clinically. Will continue with BiPAP for now, but encourage better breaks during the day. Patient does state she would be willing to be intubated if nece ssary. Urine currently growing gram-negative, so will complete 5 days of antibiotics. 2. Elevated troponin Unclear etiology. Patient was tachycardic and does have an extensive cardiac history. However, patient was also severely hypoxic on presentation. Echocardiogram is showing severe depression of EF and possible mobile mass. Blood cultures are negative at this time. Cardiology has been consulted. Defer to cardiology, but will attempt to keep volume under control 3. Gram-negative UTI Patient does have significant bacteria and leukocyte esterase on UA. However, patient also has several squamous cells. Anticipate 5 days of antibiotics given patient has not been bacteremic or hypotensive. CT of the chest is consistent with a viral etiology 4. Metabolic encephalopathy secondary to hypercarbia secondary to problem #1 Resolved. Still very anxious, but this appears to be baseline. Patient appears to be improving significantly with BiPAP therapy. Continue with delirium protocol. Patient will be at risk given need for BiPAP and steroids for development of delirium moving forward. 5. History of GI bleed/adrenal insufficiency/osteoarthritis/peripheral vascular disease/continued smoking/lack of pulmonary care Complicates care, management, recovery and prognosis. Okay to continue hydrocortisone in addition to Solu-Medrol. Patient does have a history of SVT. Heart rate better controlled on metoprolol Subjective Subjective Patient did well overnight. Patient was able to stay off of BiPAP during the day yesterday, but was on 10 L/min to maintain saturations. Patient did use BiPAP with sleep. Patient has reported some diarrhea. This was tested overnight and found to be guaiac negative Objective Data Objective Data Vital Signs: Vital Signs Temp Pulse Resp BP Pulse Ox O2 Del Method O2 Flow Rate 37.3 C 78 16 106/63 96 Bi-pap 10 02/07/23 00:00 02/07/23 04:12 02/07/23 04:12 02/07/23 03:00 02/07/23 04:12 02/07/23 03:00 02/07/23 00:00 FiO2 35 02/07/23 04:12 Oxygen Flow Rate (L/min) 10 Oxygen Delivery Method Bi-pap Weight: 60.1 kg Body Mass Index (BMI) 24.3 Intake & Output: Intake and Output for Last 24 Hours 02/05/23 02/06/23 02/07/23 23:59 23:59 23:59 Intake Total 3240.00 / 3240.00 1978.33 / 1978.33 100 / 100 Output Total 240 / 240 2350 / 2350 1750 / 1750 Balance 3000.00 / 3000.00 -371.67 / -371.67 -1650 / -1650 Lab / Micro Data Attestation: I reviewed the patient's lab results. 02/07/23 03:35 02/07/23 03:35 Labs: Laboratory Results - last 24 hr 02/06/23 04:40: Differential Comment SCANNNED 02/07/23 03:35: WBC 7.9, RBC 3.66 L, Hgb 11.1 L, Hct 34.7 L, MCV 94.8, MCH 30.3, MCHC 32.0, RDW Std Deviation 48.3 H, RDW Coeff of Nehemiah 13.9, Plt Count 161, MPV 10.4, Immature Gran % (Auto) 0.800, Neut % (Auto) 86.3 H, Lymph % (Auto) 8.9 L, [place] % (Auto) 3.7, Eos % (Auto) 0.0, Baso % (Auto) 0.3, Absolute Neuts (auto) 6.8, Absolute Lymphs (auto) 0.70 L, Nucleated RBC % 0, Sodium 142, Potassium 3.6, Chloride 108 H, Carbon Dioxide 29.0, Anion Gap 5, BUN 21 H, Creatinine 0.53 L, Estim Creat Clear Calc 42.59, Est GFR (MDRD) Af Amer 147, Est GFR (MDRD) Non- Af 122, BUN/Creatinine Ratio 39.5 H, Glucose 126 H, Calcium 7.8 L, Phosphorus 2.0 L, Magnesium 2.1 Micro: Microbiology 02/06/23 20:28 Stool Stool Occult Blood (MILDRED) - Final 02/04/23 04:07 Urine, Clean Catch Urine Culture - Preliminary Escherichia coli GNR lactose central office operator supervisor#2 02/04/23 03:18 Blood Culture (Wb) - Left Hand Blood Culture - Preliminary No growth in 48 hours. 02/04/23 03:27 Blood Culture (Wb) - Anticubital Left Blood Culture - Preliminary No growth in 48 hours. Physical Exam Const alert and oriented x3 Constitutional Narrative: On BiPAP during my evaluation General Appearance: cooperative HEENT normocephalic, head/scalp atraumatic and hearing grossly normal bilaterally Eyes PERRL, EOMs intact bilaterally and conjunctivae normal Neck no lymphadenopathy and supple Resp normal respiratory effort Effort and Inspection: prolonged expiratory phase Auscultation: wheezes; Negative for rales or rhonchi Cardio regular rate, regular rhythm, S1 normal heart sound, S2 normal heart sound, no murmurs, no rub and no gallops Rate: tachycardic GI normal to inspection, nondistended, normoactive bowel sounds, soft to palpation, non-tender and non-distended Extremity normal to inspection General Extremity: clubbing; Negative for edema Skin no rashes or lesions noted Neuro oriented x3, CN's II-XII intact bilaterally, moves all extremities and no focal motor deficits Psych Activity / Motor Behavior: restless Mood & Affect: anxious Charges/Coding Visit Charges Inpatient E&M: 33495 Subs Hosp L3
[2023-02-07] MEDS: Hydrocortisone 10 MG Tablet 20 MG PO (06:56)
[2023-02-07] MEDS: Furosemide 20 MG/2 ML VIAL IV (06:57)
[2023-02-07 08:02] LABS: Reactive Lymphocyte RARE
--- NOTE | 2023-02-07 08:20 | PN.HOSP_ITS ---
Subjective Subjective Doing well, no issues overnight. Should be placed back on BiPAP for sleep Objective Data Objective Data Vital Signs: Vital Signs Temp Pulse Resp BP Pulse Ox O2 Del Method O2 Flow Rate 98.1 F 81 18 143/100 H 98 High Flow 10 02/07/23 07:00 02/07/23 07:25 02/07/23 07:25 02/07/23 07:00 02/07/23 07:55 02/07/23 07:55 02/07/23 07:55 FiO2 35 02/07/23 07:00 Oxygen Flow Rate (L/min) 10 Oxygen Delivery Method High Flow Weight: 131 lb 9.855 oz Body Mass Index (BMI) 24.0 Intake & Output: Intake and Output for Last 24 Hours 02/06/23 02/07/23 02/08/23 03:59 03:59 03:59 Intake Total 3240.00 / 3240.00 2078.33 / 2078.33 0 / 0 Output Total 240 / 240 4100 / 4100 200 / 200 Balance 3000.00 / 3000.00 -2021.67 / -2021.67 -200 / -200 Lab / Micro Data 02/07/23 03:35 02/07/23 03:35 Labs: Laboratory Results - last 24 hr 02/07/23 03:35: WBC 7.9, RBC 3.66 L, Hgb 11.1 L, Hct 34.7 L, MCV 94.8, MCH 30.3, MCHC 32.0, RDW Std Deviation 48.3 H, RDW Coeff of Nehemiah 13.9, Plt Count 161, MPV 10.4, Immature Gran % (Auto) 0.800, Neut % (Auto) 86.3 H, Lymph % (Auto) 8.9 L, [place] % (Auto) 3.7, Eos % (Auto) 0.0, Baso % (Auto) 0.3, Absolute Neuts (auto) 6.8, Absolute Lymphs (auto) 0.70 L, Nucleated RBC % 0, Reactive Lymphocytes RARE, Sodium 142, Potassium 3.6, Chloride 108 H, Carbon Dioxide 29.0, Anion Gap 5, BUN 21 H, Creatinine 0.53 L, Estim Creat Clear Calc 42.59, Est GFR (MDRD) Af Amer 147, Est GFR (MDRD) Non-Af 122, BUN/Creatinine Ratio 39.5 H, Glucose 126 H, Calcium 7.8 L, Phosphorus 2.0 L, Magnesium 2.1 Micro: Microbiology 02/06/23 20:28 Stool Stool Occult Blood (MILDRED) - Final 02/04/23 04:07 Urine, Clean Catch Urine Culture - Preliminary Escherichia coli GNR lactose marking clerk#[email or web address] 02/04/23 03:18 Blood Culture (Wb) - Left Hand Blood Culture - Preliminary No growth in 48 hours. 02/04/23 03:27 Blood Culture (Wb) - Anticubital Left Blood Culture - Preliminary No growth in 48 hours. Physical Exam Narrative General: Alert, Oriented x3, Cooperative, No apparent distress HEENT: Atraumatic, PERRLA, EOMI, Normocephalic Oral: Moist Mucosa Neck: Supple, No JVD Lungs: Diminished, Normal air movement, No rhonchi, wheeze, No rales Cardiovascular: Regular rate, Regular Rhythm, Normal S1, Normal S2, No murmurs Abdomen: Soft, Non Tender, Non-Distended, No Hepato-splenomegaly Extremities: No edema, Capillary Refill Less than 3 Seconds Skin: No rashes, No breakdown Musculoskeletal: No Tenderness to Palpation of Joints or Extremities Neurological: Cranial nerves II-XII grossly intact, Motor Exam 5/5 strength throughout, Sensory exam intact to light touch and pain Psych/Mental Status: Anxious Assessment & Plan Assessment/Plan (1) RSV bronchitis: (2) Secondary bacterial pneumonia: (3) COPD exacerbation: (4) Acute respiratory failure: QUALIFIERS: Respiratory failure complication: hypoxia and hypercapnia Qualified Code(s): J96.01 - Acute respiratory failure with hypoxia; J96.02 - Acute respiratory failure with hypercapnia (5) Elevated troponin I level: (6) Acute metabolic encephalopathy: PLAN: Plan 1. Acute combined respiratory failure secondary to RSV pneumonitis in the setting of COPD exacerbation/metabolic encephalopathy/tobacco abuse ? Continue with BiPAP ? She probably does have a history of COPD will continue with inhalers as well as steroids ? The encephalopathy appears to be improving ? She does have a history of stage IV lung cancer that treated however she continues to smoke 2. HTN/HLD/carotid stenosis/peripheral artery disease/elevated troponin/chronic systolic CHF ? Echo with significant reduced EF to 10 to 15% and there is the possibility of a mobile mass on the mitral valve ? Continue with antibiotics if blood cultures do come back positive we will need to proceed with a EZ otherwise consulted cardiology and appreciate their recommendations ? We will continue with blood pressure medications and monitor make adjustments as necessary 3. GERD with history of GI bleed ? Continue with PPI ? Stable 4. Adrenal insufficiency ? Continue with hydrocortisone and Solu-Medrol 5. UTI ? Cultures pending, initial cultures show a pansensitive E. coli followed by a second gram-negative blanca ? Continue with antibiotics DVT: Therapeutic Lovenox Charges/Coding Visit Charges Inpatient E&M: 38984 Subs Hosp L2
[2023-02-07] MEDS: 0.9% Saline Lock 10 ML Syringe IV ×2 (08:36→19:59)
[2023-02-07] MEDS: Cilostazol 50 MG Tablet PO ×2 (08:36→20:04)
[2023-02-07] MEDS: Pantoprazole Sodium 40 MG in 0.9% Normal Saline (100mL MB+) 100 ML 330 MG IV (08:40)
[2023-02-07] MEDS: Ensure Plus High Protein 120 ML LIQUID PO ×2 (08:40→17:46)
[2023-02-07] MEDS: Aspirin E.C. 81 MG Tablet PO (08:41)
[2023-02-07] MEDS: CHLORHEXIDINE GLUC 2% CLOTH 1 EACH TOWELETTE TOPICAL (08:41)
[2023-02-07] MEDS: Metoprolol Tartrate 25 MG Tablet PO ×2 (08:41→20:03)
[2023-02-07] MEDS: TICAGRELOR 90 MG TABLET PO ×2 (08:41→20:03)
[2023-02-07] MEDS: Escitalopram Oxalate 20 MG Tablet PO (08:49)
[2023-02-07] MEDS: Ceftriaxone 1 GM/50 ML BAG IV (09:21)
[2023-02-07] MEDS: Azithromycin 500 MG in Dextrose 5%-Water (250mL Bag) 250 ML 250 MG IV (10:27)
[2023-02-07] MEDS: Hydrocortisone 10 MG Tablet PO (17:47)
[2023-02-07] MEDS: diazePAM 5 MG Tablet 2.5 MG PO (19:59)
[2023-02-07] MEDS: MELATONIN 3 MG TABLET PO (19:59)
[2023-02-07] MEDS: LORazepam 1 MG Tablet PO (19:59)
[2023-02-08] VITALS (33 sets, daily range): BP systolic 92–139; BP diastolic 46–113; PULSE 52–103; RESP 14–22; TEMP 36.2–37; O2SAT 89–99; BMI 23.3
[2023-02-08] MEDS: Ipratropium/Albuterol Sulfate 3 ML AMPUL.NEB INHALATION ×4 (01:20→19:14)
[2023-02-08] MEDS: Hydrocortisone 10 MG Tablet 20 MG PO (06:01)
[2023-02-08 06:08] LABS: Absolute Lymphocyte Count 1.33 X10^3/uL (0.83-4.51); Absolute Neutrophil Count 6.7 X10^3/uL (2.0-7.7); Basophil# 0.05 X10^3/uL; Basophil% 0.6 % (0-1); Eosinophil# 0.21 X10^3/uL; Eosinophils% 2.4 % (0-5); Hematocrit 37.6 % (37-47); Hemoglobin 12.1 g/dL (12.0-15.0); Lymphocyte # 1.33 X10^3/ul (0.83-4.51); Lymphocyte % 15.2 % (19-41); Mean Corp Hgb Conc 32.2 g/dL (32-36); Mean Corpuscular Hgb 30.3 pg (27.0-32.0); Mean Platelet Vol. 10.4 fl (6.2-12.0); Monocyte# 0.37 X10^3/uL; Monocyte% 4.2 % (0-10); NRBC Flagged by Analyzer 0 % (0-5); Neutrophil % 76.8 % (47-70); POSITIVE MORPHOLOGY YES; Platelet Count 182 K/mm3 (150-450); RBC Distribution Width SD 48.2 fl (35.1-43.9); White Blood Count 8.7 K/mm3 (4.4-11.0)
[2023-02-08 06:10] LABS: Differential Indicated SCAN CRITERIA MET
[2023-02-08 06:22] LABS: Anion Gap 3 (5-15); BUN 22 mg/dL (7-18); BUN/Creat Ratio 35.5 RATIO (10-20); Calcium,Total 8.4 mg/dL (8.5-10.1); Chloride 105 mmol/L (98-107); Creatinine, Serum 0.62 mg/dL (0.55-1.02); EST Glomerular Filtration Rate 102 mL/min (>60); Est Glom Filt Rate - Afr Amer 123 mL/min (>60); Estimated Creatinine Clearance 42.59 ml/min; Glucose 147 mg/dL (74-106); Potassium 4.2 mmol/L (3.5-5.1); Sodium Level 139 mmol/L (136-145)
[2023-02-08 06:33] LABS: Differential Comment SCANNED; Reactive Lymphocyte 1+
--- NOTE | 2023-02-08 07:04 | PCM.PN.INT ---
Assessment & Plan Assessment/Plan (1) Acute hypercapnic respiratory failure: (2) Urinary tract infection: (3) Sepsis: (4) RSV bronchitis: (5) Tobacco abuse: PLAN: Plan RECOMMENDATIONS: 1. Defer to cardiology on possible interventions 2. Keep steroids at current dose for now. Continue bronchodilators 3. BiPAP breaks as tolerated. Continue BiPAP with sleep. 4. Complete a 5-day course of antibiotics for UTI 5. Increase activity as tolerated 6. Wean oxygen as tolerated. Encourage incentive spirometer. 7. Hold on further diuretic therapy IMPRESSIONS: 1. Acute combined respiratory failure secondary to RSV pneumonitis in the setting of probable COPD exacerbation Patient does have an extensive smoking history with stigmata consistent with COPD previously. Patient also has a history of squamous cell lung carcinoma that is in reported remission. Patient has responded well to BiPAP clinically. Will continue with BiPAP with sleep for now, but encourage better breaks during the day. Patient does state she would be willing to be intubated if necessary. Urine currently growing E. coli, so will complete 5 days of antibiotics. Unfortunately, patient does not have PFTs, but advanced lung disease is suspected. 2. Elevated troponin Unclear etiology. Patient was tachycardic and does have an extensive cardiac history. However, patient was also severely hypoxic on presentation. Echocardiogram is showing severe depression of EF and possible mobile mass. Blood cultures are negative at this time. Cardiology has been consulted. Defer to cardiology, but will attempt to keep volume under control using intermittent Lasix. Hold today. 3. E. coli UTI Patient does have significant bacteria and leukocyte esterase on UA. However, patient also has several squamous cells. Anticipate 5 days of antibiotics given patient has not been bacteremic or hypotensive. CT of the chest is consistent with a viral etiology. Patient also has Klebsiella pneumonia, but not a pathologic levels. Both are treated by ceftriaxone. 4. Metabolic encephalopathy secondary to hypercarbia secondary to problem #1 Resolved. Still very anxious, but this appears to be baseline. Patient appears to be improving significantly with BiPAP therapy. Continue with delirium protocol. Patient will be at risk given need for BiPAP and steroids for development of delirium moving forward. 5. History of GI bleed/adrenal insufficiency/osteoarthritis/peripheral vascular disease/continued smoking/lack of pulmonary care Complicates care, management, recovery and prognosis. Okay to continue hydrocortisone in addition to Solu-Medrol. Patient does have a history of SVT. Heart rate better controlled on metoprolol Subjective Subjective Patient did okay overnight. Patient continues to be able to stay off of BiPAP during the day, but is still requiring 10 L/min. Patient did have decreased urine output overnight. Patient continues to have anxiety and coughing issues. Objective Data Objective Data Vital Signs: Vital Signs Temp Pulse Resp BP Pulse Ox O2 Del Method O2 Flow Rate 36.6 C 77 17 131/83 H 95 Bi-pap 10 02/08/23 04:00 02/08/23 06:00 02/08/23 06:00 02/08/23 06:00 02/08/23 06:00 02/08/23 06:00 02/08/23 04:00 FiO2 35 02/08/23 06:00 Oxygen Flow Rate (L/min) 10 Oxygen Delivery Method Bi-pap Weight: 58 kg Body Mass Index (BMI) 23.3 Intake & Output: Intake and Output for Last 24 Hours 02/06/23 02/07/23 02/08/23 23:59 23:59 23:59 Intake Total 1977.33 / 1977.33 1248.3333 / 1448.3333 200 / 200 Output Total 2350 / 2350 2600 / 2700 150 / 150 Balance -371.67 / -371.67 -1351.6667 / -1251.6667 50 / 50 Lab / Micro Data Attestation: I reviewed the patient's lab results. 02/08/23 05:55 02/08/23 05:55 Labs: Laboratory Results - last 24 hr 02/07/23 03:35: Reactive Lymphocytes RARE 02/08/23 05:55: WBC 8.7, RBC 4.00 L, Hgb 12.1, Hct 37.6, MCV 94.0, MCH 30.3, MCHC 32.2, RDW Std Deviation 48.2 H, RDW Coeff of Nehemiah 14.0, Plt Count 182, MPV 10.4, Immature Gran % (Auto) 0.800, Neut % (Auto) 76.8 H, Lymph % (Auto) 15.2 L, [place] % (Auto) 4.2, Eos % (Auto) 2.4, Baso % (Auto) 0.6, Absolute Neuts (auto) 6.7, Absolute Lymphs (auto) 1.33, Nucleated RBC % 0, Differential Comment SCANNED, Reactive Lymphocytes 1+, Sodium 139, Potassium 4.2, Chloride 105, Carbon Dioxide 31.0, Anion Gap 3 L, BUN 22 H, Creatinine 0.62, Estim Creat Clear Calc 42.59, Est GFR (MDRD) Af Amer 123, Est GFR (MDRD) Non-Af 102, BUN/Creatinine Ratio 35.5 H, Glucose 147 H, Calcium 8.4 L Micro: Microbiology 02/04/23 04:07 Urine, Clean Catch Urine Culture - Final Escherichia coli Klebsiella pneumoniae sp pneum 02/06/23 20:28 Stool Stool Occult Blood (MILDRED) - Final 02/04/23 03:18 Blood Culture (Wb) - Left Hand Blood Culture - Preliminary No growth in 48 hours. 02/04/23 03:27 Blood Culture (Wb) - Anticubital Left Blood Culture - Preliminary No growth in 48 hours. Physical Exam Const alert and oriented x3 Constitutional Narrative: On BiPAP during my evaluation with good synchrony General Appearance: cooperative HEENT normocephalic, head/scalp atraumatic and hearing grossly normal bilaterally Eyes PERRL, EOMs intact bilaterally and conjunctivae normal Neck no lymphadenopathy and supple Resp normal respiratory effort Effort and Inspection: prolonged expiratory phase Auscultation: wheezes; Negative for rales or rhonchi Cardio regular rate, regular rhythm, S1 normal heart sound, S2 normal heart sound, no murmurs, no rub and no gallops GI normal to inspection, nondistended, normoactive bowel sounds, soft to palpation, non-tender and non-distended Extremity normal to inspection General Extremity: clubbing; Negative for edema Skin no rashes or lesions noted Neuro oriented x3, CN's II-XII intact bilaterally, moves all extremities and no focal motor deficits Psych Activity / Motor Behavior: restless Mood & Affect: anxious Charges/Coding Visit Charges Inpatient E&M: 09005 Subs Hosp L3
[2023-02-08] MEDS: Pantoprazole Sodium 40 MG in 0.9% Normal Saline (100mL MB+) 100 ML 330 MG IV (08:39)
--- NOTE | 2023-02-08 09:11 | PN.CARD_ITS ---
Subjective Subjective Pt seen and examined today. Pt notes that she did not have any CP prior to coming into hosptial. She feels her SOB came on fast as the month prior she was in the office without any issues. Objective Data Vital Signs: Vital Signs Temp Pulse Resp BP Pulse Ox O2 Del Method O2 Flow Rate 97.9 F 70 17 128/71 H 95 Nasal Cannula 10 02/08/23 04:00 02/08/23 07:20 02/08/23 07:20 02/08/23 07:00 02/08/23 07:20 02/08/23 07:00 02/08/23 07:00 FiO2 35 02/08/23 07:20 Oxygen Flow Rate (L/min) 10 Oxygen Delivery Method Nasal Cannula Weight: 127 lb 13.89 oz Body Mass Index (BMI) 23.3 Intake & Output: Intake and Output for Last 24 Hours 02/06/23 02/07/23 02/08/23 23:59 23:59 23:59 Intake Total 1977.33 / 1977.33 1248.3333 / 1448.3333 310 / 310 Output Total 2350 / 2350 2600 / 2700 150 / 150 Balance -371.67 / -371.67 -1351.6667 / -1251.6667 160 / 160 Lab / Micro Data 02/08/23 05:55 02/08/23 05:55 Labs: Laboratory Results - last 24 hr 02/08/23 05:55: WBC 8.7, RBC 4.00 L, Hgb 12.1, Hct 37.6, MCV 94.0, MCH 30.3, MCHC 32.2, RDW Std Deviation 48.2 H, RDW Coeff of Nehemiah 14.0, Plt Count 182, MPV 10.4, Immature Gran % (Auto) 0.800, Neut % (Auto) 76.8 H, Lymph % (Auto) 15.2 L, [place] % (Auto) 4.2, Eos % (Auto) 2.4, Baso % (Auto) 0.6, Absolute Neuts (auto) 6.7, Absolute Lymphs (auto) 1.33, Nucleated RBC % 0, Differential Comment SCANNED, Reactive Lymphocytes 1+, Sodium 139, Potassium 4.2, Chloride 105, Carbon Dioxide 31.0, Anion Gap 3 L, BUN 22 H, Creatinine 0.62, Estim Creat Clear Calc 42.59, Est GFR (MDRD) Af Amer 123, Est GFR (MDRD) Non-Af 102, BUN/Creatinine Ratio 35.5 H, Glucose 147 H, Calcium 8.4 L Micro: Microbiology 02/04/23 04:07 Urine, Clean Catch Urine Culture - Final Escherichia coli Klebsiella pneumoniae sp pneum Cardiology Labs/Tests 02/08/23 05:55: WBC 8.7, RBC 4.00 L, Hgb 12.1, Hct 37.6, MCV 94.0, MCH 30.3, MCHC 32.2, Plt Count 182, MPV 10.4, Immature Gran % (Auto) 0.800, Neut % (Auto) 76.8 H, Lymph % (Auto) 15.2 L, [place] % (Auto) 4.2, Eos % (Auto) 2.4, Baso % (Auto) 0.6, Absolute Neuts (auto) 6.7, Nucleated RBC % 0, Sodium 139, Potassium 4.2, Chloride 105, Carbon Dioxide 31.0, Anion Gap 3 L, BUN 22 H, Creatinine 0.62, Est GFR (MDRD) Af Amer 123, Est GFR (MDRD) Non-Af 102, BUN/Creatinine Ratio 35.5 H, Glucose 147 H, Calcium 8.4 L Rhythm: NSR Physical Exam Const alert and oriented x3 General Appearance: cooperative HEENT normocephalic, head/scalp atraumatic and hearing grossly normal bilaterally Eyes PERRL, EOMs intact bilaterally and conjunctivae normal Neck no lymphadenopathy and supple Resp normal respiratory effort Effort and Inspection: prolonged expiratory phase Auscultation: diminished lung sounds bilateral; Negative for rales or rhonchi Cardio regular rhythm, S1 normal heart sound, S2 normal heart sound, no murmurs, no rub and no gallops GI normal to inspection, nondistended, normoactive bowel sounds, soft to palpation, non-tender and non-distended Extremity normal to inspection General Extremity: clubbing; Negative for edema Skin no rashes or lesions noted Neuro oriented x3, CN's II-XII intact bilaterally, moves all extremities and no focal motor deficits Psych Activity / Motor Behavior: restless Mood & Affect: anxious Assessment & Plan Assessment/Plan (1) Elevated troponin I level: (2) Sepsis: (3) Aortocoronary bypass status: (4) Presence of stent in coronary artery: (5) PAD (peripheral artery disease): (6) Essential hypertension: (7) Hyperlipidemia: (8) Cardiomyopathy: PLAN: Plan * Pts troponin is elevated, this could be related to her hypoxia or it could be CAD related. At this time will not pursue a heart cath with her sepsis. Will monitor her t/o her hospital stay. If need be we can pursue on in Pt basis, but can consider this on OP basis. She did have a negative stress test in 2021. * Cardiomyopathy: EF has worsened. As mentioned above, would consider a heart cath on OP basis. Do not want to pursue as inpt with her sepsis. Will add low dose Entresto and SLT2 today. Will monitor VS. May consider Spirolactone based on VS. Will consider switching metoprolol to coreg. However will monitor VS with addition of medications today. . * Recommend repeating echo in 1-3 months post d/c to see if EF improved. If not will need to consider prophylactic ICD. Charges/Coding Visit Charges Inpatient E&M: 41963 Subs Hosp L2
--- NOTE | 2023-02-08 09:17 | PN.HOSP_ITS ---
Subjective Subjective Requires 10 L/min when not on BiPAP and still requires BiPAP at night Objective Data Objective Data Vital Signs: Vital Signs Temp Pulse Resp BP Pulse Ox O2 Del Method O2 Flow Rate 97.9 F 70 17 128/71 H 95 Nasal Cannula 10 02/08/23 04:00 02/08/23 07:20 02/08/23 07:20 02/08/23 07:00 02/08/23 07:20 02/08/23 07:00 02/08/23 07:00 FiO2 35 02/08/23 07:20 Oxygen Flow Rate (L/min) 10 Oxygen Delivery Method Nasal Cannula Weight: 127 lb 13.89 oz Body Mass Index (BMI) 23.3 Intake & Output: Intake and Output for Last 24 Hours 02/07/23 02/08/23 02/09/23 03:59 03:59 03:59 Intake Total 2078.33 / 2078.33 1348.3333 / 1348.3333 110 / 110 Output Total 4100 / 4100 950 / 950 50 / 50 Balance -2021.67 / -2021.67 398.3333 / 398.3333 60 / 60 Lab / Micro Data 02/08/23 05:55 02/08/23 05:55 Labs: Laboratory Results - last 24 hr 02/08/23 05:55: WBC 8.7, RBC 4.00 L, Hgb 12.1, Hct 37.6, MCV 94.0, MCH 30.3, MCHC 32.2, RDW Std Deviation 48.2 H, RDW Coeff of Nehemiah 14.0, Plt Count 182, MPV 10.4, Immature Gran % (Auto) 0.800, Neut % (Auto) 76.8 H, Lymph % (Auto) 15.2 L, [place] % (Auto) 4.2, Eos % (Auto) 2.4, Baso % (Auto) 0.6, Absolute Neuts (auto) 6.7, Absolute Lymphs (auto) 1.33, Nucleated RBC % 0, Differential Comment SC ANNED, Reactive Lymphocytes 1+, Sodium 139, Potassium 4.2, Chloride 105, Carbon Dioxide 31.0, Anion Gap 3 L, BUN 22 H, Creatinine 0.62, Estim Creat Clear Calc 42.59, Est GFR (MDRD) Af Amer 123, Est GFR (MDRD) Non-Af 102, BUN/Creatinine Ratio 35.5 H, Glucose 147 H, Calcium 8.4 L Micro: Microbiology 02/04/23 04:07 Urine, Clean Catch Urine Culture - Final Escherichia coli Klebsiella pneumoniae sp pneum 02/06/23 20:28 Stool Stool Occult Blood (MILDRED) - Final 02/04/23 03:18 Blood Culture (Wb) - Left Hand Blood Culture - Preliminary No growth in 48 hours. 02/04/23 03:27 Blood Culture (Wb) - Anticubital Left Blood Culture - Preliminary No growth in 48 hours. Physical Exam Narrative General: Alert, Oriented x3, Cooperative, No apparent distress HEENT: Atraumatic, PERRLA, EOMI, Normocephalic Oral: Moist Mucosa Neck: Supple, No JVD Lungs: Diminished, Normal air movement, No rhonchi, wheeze, No rales Cardiovascular: Regular rate, Regular Rhythm, Normal S1, Normal S2, No murmurs Abdomen: Soft, Non Tender, Non-Distended, No Hepato-splenomegaly Extremities: No edema, Capillary Refill Less than 3 Seconds Skin: No rashes, No breakdown Musculoskeletal: No Tenderness to Palpation of Joints or Extremities Neurological: Cranial nerves II-XII grossly intact, Motor Exam 5/5 strength throughout, Sensory exam intact to light touch and pain Psych/Mental Status: Anxious Assessment & Plan Assessment/Plan (1) RSV bronchitis: (2) Secondary bacterial pneumonia: (3) COPD exacerbation: (4) Acute respiratory failure: QUALIFIERS: Respiratory failure complication: hypoxia and hypercapnia Qualified Code(s): J96.01 - Acute respiratory failure with hypoxia; J96.02 - Acute respiratory failure with hypercapnia (5) Elevated troponin I level: (6) Acute metabolic encephalopathy: PLAN: Plan 1. Acute combined respiratory failure secondary to RSV pneumonitis in the setting of COPD exacerbation/metabolic encephalopathy/tobacco abuse ? Continue with BiPAP ? She probably does have a history of COPD will continue with inhalers as well as steroids ? The encephalopathy appears to be resolved ? She does have a history of squamous cell lung cancer that treated however she continues to smoke 2. HTN/HLD/carotid stenosis/peripheral artery disease/elevated troponin/chronic systolic CHF ? Echo with significant reduced EF to 10 to 15% and there is the possibility of a mobile mass on the mitral valve ? Continue with antibiotics if blood cultures do come back positive we will need to proceed with a EZ otherwise consulted cardiology and appreciate their recommendations ? We will continue with blood pressure medications and monitor make adjustments as necessary 3. GERD with history of GI bleed ? Continue with PPI ? Stable 4. Adrenal insufficiency ? Continue with hydrocortisone and Solu-Medrol 5. UTI ? Cultures pending, initial cultures show a pansensitive E. coli followed by a second gram-negative blanca ? Continue with antibiotics DVT: Therapeutic Lovenox Charges/Coding Visit Charges Inpatient E&M: 42639 Subs Hosp L2
[2023-02-08] MEDS: Ensure Plus High Protein 120 ML LIQUID PO ×2 (09:54→17:46)
[2023-02-08] MEDS: TICAGRELOR 90 MG TABLET PO ×2 (09:55→20:47)
[2023-02-08] MEDS: Cilostazol 50 MG Tablet PO ×2 (09:55→20:47)
[2023-02-08] MEDS: Escitalopram Oxalate 20 MG Tablet PO (09:55)
[2023-02-08] MEDS: Aspirin E.C. 81 MG Tablet PO (09:55)
[2023-02-08] MEDS: CHLORHEXIDINE GLUC 2% CLOTH 1 EACH TOWELETTE TOPICAL (09:56)
[2023-02-08] MEDS: Ceftriaxone 1 GM/50 ML BAG IV (09:56)
[2023-02-08] MEDS: Metoprolol Tartrate 25 MG Tablet PO ×2 (09:56→20:48)
[2023-02-08] MEDS: Azithromycin 500 MG in Dextrose 5%-Water (250mL Bag) 250 ML 250 MG IV (10:03)
[2023-02-08] MEDS: SACUBITRIL/VALSARTAN 24/26 MG TABLET 1 EACH PO ×2 (10:52→20:47)
[2023-02-08] MEDS: Empagliflozin 10 MG Tablet PO (10:52)
[2023-02-08] MEDS: Hydrocortisone 10 MG Tablet PO (17:46)
[2023-02-08] MEDS: MELATONIN 3 MG TABLET PO (20:41)
[2023-02-08] MEDS: LORazepam 1 MG Tablet PO (20:41)
[2023-02-08] MEDS: diazePAM 5 MG Tablet 2.5 MG PO (20:42)
[2023-02-08] MEDS: guaiFENesin 10 ML UDC (200MG/10ML) PO (20:53)
--- NOTE | 2023-02-08 21:53 | NURSING ---
Pt called, ready for the mask. BiPAP placed in comfortable position.
[2023-02-09] VITALS (21 sets, daily range): BP systolic 85–131; BP diastolic 54–80; PULSE 77–106; RESP 14–23; TEMP 36.3–36.8; O2SAT 90–99; BMI 24.0
[2023-02-09] MEDS: Ipratropium/Albuterol Sulfate 3 ML AMPUL.NEB INHALATION ×4 (01:57→18:51)
[2023-02-09] MEDS: Hydrocortisone 10 MG Tablet 20 MG PO (07:57)
[2023-02-09] MEDS: Aspirin E.C. 81 MG Tablet PO (07:58)
[2023-02-09] MEDS: Sodium Chloride 0.65% 1 SPRAY SPRAY.BTL 2 SPRAY NASAL ×2 (07:59→14:22)
--- NOTE | 2023-02-09 08:15 | CPS ---
decreased NC to 4L
--- NOTE | 2023-02-09 09:07 | PN.HOSP_ITS ---
Subjective Subjective Currently off BiPAP and 90% on 4 L nasal cannula Objective Data Objective Data Vital Signs: Vital Signs Temp Pulse Resp BP Pulse Ox O2 Del Method O2 Flow Rate 97.3 F L 100 23 H 96/80 90 Nasal Cannula 4 02/09/23 07:00 02/09/23 08:00 02/09/23 08:00 02/09/23 08:00 02/09/23 08:37 02/09/23 08:00 02/09/23 08:37 FiO2 35 02/09/23 07:00 Oxygen Flow Rate (L/min) 4 Oxygen Delivery Method Nasal Cannula Weight: 131 lb 6.328 oz Body Mass Index (BMI) 24.0 Intake & Output: Intake and Output for Last 24 Hours 02/08/23 02/09/23 02/10/23 03:59 03:59 03:59 Intake Total 1348.3333 / 1348.3333 1395 / 1395 200 / 200 Output Total 950 / 950 700 / 700 Balance 398.3333 / 398.3333 695 / 695 200 / 200 Lab / Micro Data 02/08/23 05:55 02/08/23 05:55 Micro: Microbiology 02/04/23 03:27 Blood Culture (Wb) - Anticubital Left Blood Culture - Final No growth in 5 days. 02/04/23 03:18 Blood Culture (Wb) - Left Hand Blood Culture - Final No growth in 5 days. 02/04/23 04:07 Urine, Clean Catch Urine Culture - Final Escherichia coli Klebsiella pneumoniae sp pneum 02/06/23 20:28 Stool Stool Occult Blood (MILDRED) - Final Radiography Diagnostic Testing: Radiology Impression Venous Doppler Study 02/04/23 06:29 Interpretation Summary Deep veins of the bilateral lower extremities are patent and compressible segmentally. There is no evidence of bilateral lower extremity deep vein thrombosis. The left great saphenous vein appears patent and compressible segmentally. Ordering Physician: Prince Ortega Referring Physician: Harry, Nereyda Performed By: Julissa Panda RVT Physical Exam Narrative General: Alert, Oriented x3, Cooperative, No apparent distress HEENT: Atraumatic, PERRLA, EOMI, Normocephalic Oral: Moist Mucosa Neck: Supple, No JVD Lungs: Diminished, Normal air movement, No rhonchi, wheeze, No rales Cardiovascular: Regular rate, Regular Rhythm, Normal S1, Normal S2, No murmurs Abdomen: Soft, Non Tender, Non-Distended, No Hepato-splenomegaly Extremities: No edema, Capillary Refill Less than 3 Seconds Skin: No rashes, No breakdown Musculoskeletal: No Tenderness to Palpation of Joints or Extremities Neurological: Cranial nerves II-XII grossly intact, Motor Exam 5/5 strength throughout, Sensory exam intact to light touch and pain Psych/Mental Status: Anxious Assessment & Plan Assessment/Plan (1) RSV bronchitis: (2) Secondary bacterial pneumonia: (3) COPD exacerbation: (4) Acute respiratory failure: QUALIFIERS: Respiratory failure complication: hypoxia and hy percapnia Qualified Code(s): J96.01 - Acute respiratory failure with hypoxia; J96.02 - Acute respiratory failure with hypercapnia (5) Elevated troponin I level: (6) Acute metabolic encephalopathy: PLAN: Plan 1. Acute combined respiratory failure secondary to RSV pneumonitis in the setting of COPD exacerbation/metabolic encephalopathy/tobacco abuse ? Continue with BiPAP ? She probably does have a history of COPD will continue with inhalers as well as steroids ? The encephalopathy appears to be resolved ? She does have a history of squamous cell lung cancer that was treated however she continues to smoke 2. HTN/HLD/carotid stenosis/peripheral artery disease/elevated troponin/chronic systolic CHF ? Echo with significant reduced EF to 10 to 15% and there is the possibility of a mobile mass on the mitral valve ? Continue with antibiotics if blood cultures do come back positive we will need to proceed with a EZ otherwise consulted cardiology and appreciate their recommendations ? We will continue with blood pressure medications and monitor make adjustments as necessary 3. GERD with history of GI bleed ? Continue with PPI ? Stable 4. Adrenal insufficiency ? Continue with hydrocortisone and Solu-Medrol 5. UTI ? Cultures pending, initial cultures show a pansensitive E. coli followed by a second gram-negative blanca ? Continue with antibiotics DVT: Therapeutic Lovenox Charges/Coding Visit Charges Inpatient E&M: 31337 Subs Hosp L2
[2023-02-09] MEDS: Ensure Plus High Protein 120 ML LIQUID PO ×4 (09:15→21:05)
[2023-02-09] MEDS: Pantoprazole Sodium 40 MG in 0.9% Normal Saline (100mL MB+) 100 ML 330 MG IV (09:15)
[2023-02-09] MEDS: Empagliflozin 10 MG Tablet PO (09:18)
[2023-02-09] MEDS: SACUBITRIL/VALSARTAN 24/26 MG TABLET 1 EACH PO ×2 (09:18→21:03)
[2023-02-09] MEDS: 0.9% Saline Lock 10 ML Syringe IV ×2 (09:18→21:03)
[2023-02-09] MEDS: TICAGRELOR 90 MG TABLET PO ×2 (09:18→21:03)
[2023-02-09] MEDS: Cilostazol 50 MG Tablet PO ×2 (09:19→21:03)
[2023-02-09] MEDS: Metoprolol Tartrate 25 MG Tablet PO ×2 (09:19→21:10)
[2023-02-09] MEDS: Escitalopram Oxalate 20 MG Tablet PO (09:19)
[2023-02-09] MEDS: Ceftriaxone 1 GM/50 ML BAG IV (09:20)
--- NOTE | 2023-02-09 09:24 | PN.CC_ITS ---
Assessment & Plan Assessment/Plan (1) Acute hypercapnic respiratory failure: (2) Urinary tract infection: (3) Sepsis: (4) RSV bronchitis: (5) Tobacco abuse: PLAN: Plan RECOMMENDATIONS: 1. Continue to wean supplemental oxygen to maintain saturations at or above 90%. 2. Continue antimicrobials. 3. Continue bronchodilators and steroids. 4. Empiric BiPAP therapy nightly. 5. Encourage incentive spirometer use and mobilize patient as tolerated. 6. The patient is medically stable for transfer out of the intensive care unit. IMPRESSIONS: 1. Acute combined respiratory failure secondary to RSV pneumonitis in the setting of probable COPD exacerbation The patient does have an extensive smoking history with stigmata consistent with COPD previously. The patient also has a history of squamous cell lung carcinoma that is in reported remission. The patient has responded well clinically to therapeutic interventions including BiPAP, bronchodilators and steroids. Continue to wean supplemental oxygen as tolerated to maintain saturations at or above 90%. Encourage incentive spirometer use and mobilize patient as tolerated. 2. Elevated troponin Echocardiogram revealed a severely depressed ejection fraction. Cardiology is following to assist with medical management, but is not planning any form of cardiac catheterization. 3. E. coli UTI Continue antimicrobials to complete treatment course. 4. History of GI bleed/adrenal insufficiency/osteoarthritis/peripheral vascular disease/continued smoking/lack of pulmonary care Complicates care, management, recovery and prognosis. Okay to continue hydrocortisone in addition to Solu-Medrol. Continue remainder of home medications as indicated. This note was generated with [employer] - Smart[employer] RFID dictation software. It may contain incorrect words, spelling, and punctuation that were not noted in checking the note before signing. Subjective Subjective The patient was seen and examined at the bedside this morning. Events from the last 24 hours have been reviewed. The patient is currently afebrile, hemodynamically stable and maintaining appropriate oxygen saturations on 4 L/min via nasal cannula. The patient's oxygenation status has improved quite a bit since yesterday. She reported that she typically utilizes 2 L/min of supplemental oxygen, but only on a nightly basis. Objective Data Objective Data The patient's most recent lab work, culture data and imaging studies have all been personally reviewed. Respiratory viral panel was positive for RSV. Urine culture dated February 04 was positive for E. coli and Klebsiella pneumonia. Vital Signs: Vital Signs Temp Pulse Resp BP Pulse Ox O2 Del Method O2 Flow Rate 97.3 F L 105 H 23 H 96/80 90 Nasal Cannula 4 02/09/23 07:00 02/09/23 09:19 02/09/23 08:00 02/09/23 08:00 02/09/23 08:37 02/09/23 08:00 02/09/23 08:37 FiO2 35 02/09/23 07:00 Oxygen Flow Rate (L/min) 4 Oxygen Delivery Method Nasal Cannula Weight: 131 lb 6.328 oz Body Mass Index (BMI) 24.0 Intake & Output: Intake and Output for Last 24 Hours 02/07/23 02/08/23 02/09/23 23:59 23:59 23:59 Intake Total 1248.3333 / 1448.3333 1595 / 1595 200 / 200 Output Total 2600 / 2700 800 / 800 Balance -1351.6667 / -1251.6667 795 / 795 200 / 200 Lab / Micro Data Attestation: I reviewed the patient's lab results. 02/08/23 05:55 02/08/23 05:55 Micro: Microbiology 02/04/23 03:27 Blood Culture (Wb) - Anticubital Left Blood Culture - Final No growth in 5 days. 02/04/23 03:18 Blood Culture (Wb) - Left Hand Blood Culture - Final No growth in 5 days. 02/04/23 04:07 Urine, Clean Catch Urine Culture - Final Escherichia coli Klebsiella pneumoniae sp pneum 02/06/23 20:28 Stool Stool Occult Blood (MILDRED) - Final Radiography Diagnostic Testing: Radiology Impression Venous Doppler Study 02/04/23 06:29 Interpretation Summary Deep veins of the bilateral lower extremities are patent and compressible segmentally. There is no evidence of bilateral lower extremity deep vein thrombosis. The left great saphenous vein appears patent and compressible segmentally. Ordering Physician: Prince Ortega Referring Physician: Nereyda Mcdonald Performed By: Willinger, Julissa, RVT Physical Exam Const alert and no apparent distress Constitutional Narrative: Sitting in bedside recliner. General Appearance: cooperative HEENT normocephalic and head/scalp atraumatic Eyes PERRL, EOMs intact bilaterally and conjunctivae normal Neck supple General: trachea midline Chest inspection of chest normal Resp normal respiratory effort Auscultation: diminished lung sounds; Negative for rales, rhonchi or wheezes Cardio regular rate and regular rhythm GI normal to inspection, nondistended, normoactive bowel sounds Extremity no clubbing, cyanosis or edema Skin no rashes or lesions noted Neuro oriented x3, CN's II-XII intact bilaterally, moves all extremities and no focal motor deficits Psych cooperative and affect normal Charges/Coding Visit Charges Inpatient E&M: 05222 Subs Hosp L2
[2023-02-09] MEDS: Azithromycin 500 MG in Dextrose 5%-Water (250mL Bag) 250 ML 250 MG IV (10:45)
--- NOTE | 2023-02-09 12:43 | CASEMGMT ---
KENDALL DAY into pt room, pt sitting up in chair with oxygen on . Pt states she does not feel that she will need any therapy or services at dc. She states she is independent at home, it just takes her longer than it used to. KENDALL DAY to follow for increased oxygen needs.
[2023-02-09] MEDS: guaiFENesin 10 ML UDC (200MG/10ML) PO ×2 (14:20→19:41)
[2023-02-09] MEDS: Hydrocortisone 10 MG Tablet PO (18:24)
[2023-02-09] MEDS: diazePAM 5 MG Tablet 2.5 MG PO (21:02)
[2023-02-09] MEDS: LORazepam 1 MG Tablet PO (21:03)
[2023-02-09] MEDS: MELATONIN 3 MG TABLET PO (21:03)
[2023-02-10] VITALS (15 sets, daily range): BP systolic 94–138; BP diastolic 53–85; PULSE 73–92; RESP 14–22; TEMP 36.4–36.8; O2SAT 91–97; BMI 24.4
[2023-02-10] MEDS: Ipratropium/Albuterol Sulfate 3 ML AMPUL.NEB INHALATION ×4 (01:40→19:35)
--- NOTE | 2023-02-10 07:42 | PN.CC_ITS ---
Assessment & Plan Assessment/Plan (1) Acute hypercapnic respiratory failure: (2) Urinary tract infection: (3) Sepsis: (4) RSV bronchitis: (5) Tobacco abuse: PLAN: Plan RECOMMENDATIONS: 1. Continue to wean supplemental oxygen to maintain saturations at or above 90%. 2. Continue antimicrobials. 3. Continue bronchodilators and steroids. Okay to transition to prednisone 40 mg daily with plans for a 5-day burst at discharge. 4. Empiric BiPAP therapy nightly. 5. Encourage incentive spirometer use and mobilize patient as tolerated. 6. Will sign off at this time from a critical care perspective. Please call with any additional questions. IMPRESSIONS: 1. Acute combined respiratory failure secondary to RSV pneumonitis in the setting of probable COPD exacerbation The patient does have an extensive smoking history with stigmata consistent with COPD previously. The patient also has a history of squamous cell lung carcinoma that is in reported remission. The patient has responded well clinically to therapeutic interventions including BiPAP, bronchodilators and steroids. Continue to wean supplemental oxygen as tolerated to maintain saturations at or above 90%. Encourage incentive spirometer use and mobilize patient as tolerated. 2. Elevated troponin Echocardiogram revealed a severely depressed ejection fraction. Cardiology is following to assist with medical management, but is not planning any form of cardiac catheterization. 3. E. coli UTI Continue antimicrobials to complete treatment course. 4. History of GI bleed/adrenal insufficiency/osteoarthritis/peripheral vascular disease/continued smoking/lack of pulmonary care Complicates care, management, recovery and prognosis. Continue home medications as indicated. This note was generated with [employer] dictation software. It may contain incorrect words, spelling, and punctuation that were not noted in checking the note before signing. Subjective Subjective The patient was seen and examined at the bedside this morning. Events from the last 24 hours have been reviewed. The patient remains afebrile hemodynamically stable. No overnight issues were identified by the nursing staff. Objective Data Objective Data The patient's most recent lab work, culture data and imaging studies have all been personally reviewed. Respiratory viral panel was positive for RSV. Urine culture dated February 04 was positive for E. coli and Klebsiella pneumonia. Vital Signs: Vital Signs Temp Pulse Resp BP Pulse Ox O2 Del Method O2 Flow Rate 98.2 F 77 17 94/53 L 97 Bi-pap 5 02/10/23 06:15 02/10/23 07:20 02/10/23 07:20 02/10/23 06:15 02/10/23 07:20 02/10/23 06:15 02/09/23 21:00 FiO2 35 02/10/23 07:20 Oxygen Flow Rate (L/min) 5 Oxygen Delivery Method Bi-pap Weight: 132 lb 15.02 oz Body Mass Index (BMI) 24.4 Intake & Output: Intake and Output for Last 24 Hours 02/08/23 02/09/23 02/10/23 23:59 23:59 23:59 Intake Total 1595 / 1595 1095 / 1095 Output Total 800 / 800 750 / 850 100 / 100 Balance 795 / 795 345 / 245 -100 / -100 Lab / Micro Data Attestation: I reviewed the patient's lab results. 02/08/23 05:55 02/08/23 05:55 Micro: Microbiology 02/04/23 03:27 Blood Culture (Wb) - Anticubital Left Blood Culture - Final No growth in 5 days. 02/04/23 03:18 Blood Culture (Wb) - Left Hand Blood Culture - Final No growth in 5 days. 02/04/23 04:07 Urine, Clean Catch Urine Culture - Final Escherichia coli Klebsiella pneumoniae sp pneum 02/06/23 20:28 Stool Stool Occult Blood (MILDRED) - Final Radiography Diagnostic Testing: Radiology Impression Venous Doppler Study 02/04/23 06:29 Interpretation Summary Deep veins of the bilateral lower extremities are patent and compressible segmentally. There is no evidence of bilateral lower extremity deep vein thrombosis. The left great s aphenous vein appears patent and compressible segmentally. Ordering Physician: Prince Ortega Referring Physician: Nereyda Mcdonald Performed By: Julissa Panda, RVT Physical Exam Const alert and no apparent distress General Appearance: cooperative HEENT normocephalic and head/scalp atraumatic Eyes PERRL, EOMs intact bilaterally and conjunctivae normal Neck supple General: trachea midline Chest inspection of chest normal Resp normal respiratory effort Auscultation: diminished lung sounds; Negative for rales, rhonchi or wheezes Cardio regular rate and regular rhythm GI normal to inspection, nondistended, normoactive bowel sounds Extremity no clubbing, cyanosis or edema Skin no rashes or lesions noted Neuro oriented x3, CN's II-XII intact bilaterally, moves all extremities and no focal motor deficits Psych cooperative and affect normal Charges/Coding Visit Charges Inpatient E&M: 95863 Subs Hosp L2
[2023-02-10] MEDS: Hydrocortisone 10 MG Tablet 20 MG PO (07:46)
[2023-02-10] MEDS: Ensure Plus High Protein 120 ML LIQUID PO ×4 (07:51→21:25)
[2023-02-10] MEDS: Pantoprazole Sodium 40 MG in 0.9% Normal Saline (100mL MB+) 100 ML 330 MG IV (07:51)
[2023-02-10] MEDS: Azithromycin 500 MG in Dextrose 5%-Water (250mL Bag) 250 ML 250 MG IV (07:51)
[2023-02-10] MEDS: SACUBITRIL/VALSARTAN 24/26 MG TABLET 1 EACH PO ×2 (07:52→21:19)
[2023-02-10] MEDS: Escitalopram Oxalate 20 MG Tablet PO (07:52)
[2023-02-10] MEDS: TICAGRELOR 90 MG TABLET PO ×2 (07:52→21:18)
[2023-02-10] MEDS: Empagliflozin 10 MG Tablet PO (07:52)
[2023-02-10] MEDS: Cilostazol 50 MG Tablet PO ×2 (07:52→21:19)
[2023-02-10] MEDS: Aspirin E.C. 81 MG Tablet PO (07:52)
[2023-02-10] MEDS: Metoprolol Tartrate 25 MG Tablet PO ×2 (07:53→21:19)
[2023-02-10] MEDS: Ceftriaxone 1 GM/50 ML BAG IV (08:57)
[2023-02-10] MEDS: predniSONE 20 MG Tablet 40 MG PO (09:38)
--- NOTE | 2023-02-10 16:30 | PCM.PN.HOSP ---
Reason for Visit Reason for Visit: Diagnoses Sepsis, unspecified organism (02/04/23) Hyperlipidemia, unspecified (02/04/23) Metabolic encephalopathy (02/04/23) Essential (primary) hypertension (02/04/23) Cardiomyopathy, unspecified (02/04/23) Peripheral vascular disease, unspecified (02/04/23) Unspecified bacterial pneumonia (02/04/23) Acute bronchitis due to respiratory syncytial virus (02/04/23) Chronic obstructive pulmonary disease with (acute) exacerbation (02/04/23) Acute respiratory failure with hypoxia (02/04/23) Acute respiratory failure with hypercapnia (02/04/23) Urinary tract infection, site not specified (02/04/23) Hypoxemia (02/04/23) Other specified abnormal findings of blood chemistry (02/04/23) Tobacco use (02/04/23) Presence of aortocoronary bypass graft (02/04/23) Presence of coronary angioplasty implant and graft (02/04/23) Objective Data Objective Data Vital Signs: Vital Signs Temp Pulse Resp BP Pulse Ox O2 Del Method O2 Flow Rate 97.8 F 82 16 109/70 93 Nasal Cannula 2 02/10/23 08:15 02/10/23 12:15 02/10/23 12:15 02/10/23 08:15 02/10/23 12:23 02/10/23 13:57 02/10/23 13:57 FiO2 35 02/10/23 07:20 Oxygen Flow Rate (L/min) 2 Oxygen Delivery Method Nasal Cannula Weight: 132 lb 15.02 oz Body Mass Index (BMI) 24.4 Intake & Output: Intake and Output for Last 24 Hours 02/08/23 02/09/23 02/10/23 23:59 23:59 23:59 Intake Total 1595 / 1595 1095 / 1095 415 / 415 Output Total 800 / 800 750 / 850 400 / 400 Balance 795 / 795 345 / 245 Lab / Micro Data 02/08/23 05:55 02/08/23 05:55 Micro: Microbiology 02/04/23 03:27 Blood Culture (Wb) - Anticubital Left Blood Culture - Final No growth in 5 days. 02/04/23 03:18 Blood Culture (Wb) - Left Hand Blood Culture - Final No growth in 5 days. 02/04/23 04:07 Urine, Clean Catch Urine Culture - Final Escherichia coli Klebsiella pneumoniae sp pneum 02/06/23 20:28 Stool Stool Occult Blood (MILDRED) - Final Physical Exam Narrative Seen and examined. Overall patient feeling better than yesterday. Patient on BiPAP at night 35%. On 5 L of oxygen during daytime. Patient chronically on 3 L of oxygen at home. 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 Physical exam General: Alert, Oriented x3, Cooperative HEENT: Atraumatic, PERRLA, EOMI, Normocephalic Oral: No Gingival or Mucosal Lesions/ Ulcerations Neck: Supple, No JVD, Negative Carotid Bruits Lungs: Air entry diminished in bilateral lung bases. Bilateral expiratory rhonchi. No tachypnea. Dyspnea on exertion. Cardiovascular: Regular rate, Regular Rhythm, Normal S1, Normal S2, No murmurs Abdomen: Bowel Sounds Present, Soft, Non Tender, Non-Distended : No renal angle tenderness. No suprapubic tenderness. Extremities: No edema, Capillary Refill Less than 3 Seconds Skin: No rashes, No breakdown Musculoskeletal: No Tenderness to Palpation of Joints or Extremities Neurological: Cranial nerves II-XII grossly intact, DTR 2+/4. No acute focal neurological deficit. Psych/Mental Status: Normal Affect, Appropriate. Assessment & Plan Assessment/Plan (1) RSV bronchitis: (2) Secondary bacterial pneumonia: (3) COPD exacerbation: (4) Acute respiratory failure: QUALIFIERS: Respiratory failure complication: hypoxia and hypercapnia Qualified Code(s): J96.01 - Acute respiratory failure with hypoxia; J96.02 - Acute respiratory failure with hypercapnia (5) Elevated troponin I level: (6) Acute metabolic encephalopathy: PLAN: Plan 1. Acute combined respiratory failure secondary to RSV pneumonitis in the setting of COPD exacerbation, chronic cigarette smoking/nicotine use patient is being admitted in ICU. Continue bronchodilator and steroid. IV Solu-Medrol changed to prednisone 40 mg daily for 5 days as per therapy. BiPAP at night. Incentive spirometry and PEP. Logistics Tech signed off. She does have a history of squamous cell lung cancer that was treated however she continues to smoke 2. Acute metabolic encephalopathy related to respiratory failure as mentioned above: Currently patient is awake and alert related x 3. Acute encephalopathy resolved. 3. HTN/HLD/carotid stenosis/peripheral artery disease/elevated troponin/chronic systolic CHF ? Echo with significant reduced EF to 10 to 15%. Severe segmental systolic dysfunction. Mitral valve structurally normal with mild MR. 1 to 2+ TR. RVSP 34 mmHg. Mild diffuse aortic valve thickening no aortic stenosis. Cannot exclude mobile mass on posterior medial mitral valve papillary or chordae. Troponin was elevated. Evaluated by cardiology seem to be due to increased hypoxia. Currently not appropriate for persuasion of ischemic workup but may be outpatient basis. Negative stress test in 2021. Low-dose Entresto and SGLT2. Switch metoprolol to Coreg. Spironolactone if patient can tolerate. Recommended repeat echo in 1 to 3 months. ? 3. GERD with history of GI bleed ? Continue with PPI ? Stable 4. Adrenal insufficiency ? Continue with hydrocortisone and Solu-Medrol 5. UTI: Urine culture shows more than 8000 colonies of E. coli, Klebsiella pneumoniae 25,000-50,000 suggestive of E. coli UTI and coronation of Klebsiella. Continue with IV antibiotics. Blood cultures x 2 negative for 5 days. ? Continue with antibiotics DVT: Therapeutic Lovenox Charges/Coding Visit Charges Inpatient E&M: 73267 Subs Hosp L3
--- NOTE | 2023-02-10 19:35 | CPS ---
Pt is refusing BiPAP tonight, says she wants to see how well she sleeps with only nasal cannula on instead.
[2023-02-10] MEDS: LORazepam 1 MG Tablet PO (21:18)
[2023-02-10] MEDS: Hydrocortisone 10 MG Tablet PO (21:25)
[2023-02-10] MEDS: guaiFENesin 10 ML UDC (200MG/10ML) PO (23:56)
[2023-02-11] VITALS (8 sets, daily range): BP systolic 100–117; BP diastolic 67–73; PULSE 83–102; RESP 18–22; TEMP 36.3–36.6; O2SAT 82–93; BMI 23.6
--- NOTE | 2023-02-11 00:22 | CPS ---
Pt. refuses bipap at this time
[2023-02-11] MEDS: Ipratropium/Albuterol Sulfate 3 ML AMPUL.NEB INHALATION ×2 (01:06→07:13)
[2023-02-11] MEDS: Hydrocortisone 10 MG Tablet 20 MG PO (06:24)
[2023-02-11] MEDS: Pantoprazole Sodium 40 MG in 0.9% Normal Saline (100mL MB+) 100 ML 330 MG IV (08:46)
[2023-02-11] MEDS: Azithromycin 500 MG in Dextrose 5%-Water (250mL Bag) 250 ML 250 MG IV (08:47)
[2023-02-11] MEDS: guaiFENesin 10 ML UDC (200MG/10ML) PO (08:51)
[2023-02-11] MEDS: Aspirin E.C. 81 MG Tablet PO (08:52)
[2023-02-11] MEDS: Escitalopram Oxalate 20 MG Tablet PO (08:52)
[2023-02-11] MEDS: TICAGRELOR 90 MG TABLET PO (08:52)
[2023-02-11] MEDS: SACUBITRIL/VALSARTAN 24/26 MG TABLET 1 EACH PO (08:53)
[2023-02-11] MEDS: predniSONE 20 MG Tablet 40 MG PO (08:53)
[2023-02-11] MEDS: Metoprolol Tartrate 25 MG Tablet PO (08:53)
[2023-02-11] MEDS: Ensure Plus High Protein 120 ML LIQUID PO ×2 (08:53→14:44)
[2023-02-11] MEDS: Cilostazol 50 MG Tablet PO (08:54)
[2023-02-11] MEDS: 0.9% Saline Lock 10 ML Syringe IV (08:55)
--- NOTE | 2023-02-11 11:18 | PCM.DC ---
Discharge Instructions Diet Discharge Diet: No restrictions Activity Discharge Activity: Return to Normal Activity Weight Bearing Status: Weight bearing as tolerated Dressing / Incision Call your doctor if you observe: Fever of 101 or Higher, Coldness, Increased Pain, Numbness or Tingling, Change in Color, Inability to urinate, Inability to have a bowel movement, Using more than 1 pad per hour, Shortness of breath, Dizziness, Fainting spells, Swelling in the ankles, Chest pain, Prolonged hiccupping, Increased palpitations (irregular heartbeat) and Calf discomfort Follow Up Care When: IN 2 WEEKS Test Results: Test results from this visit will be discussed in further detail at your follow-up appointment, if applicable. Discharge Plan Admission Admit Date/Time: 02/04/23 06:12 Attending Provider: Dewayne Cleveland Primary Care Provider: Nereyda Mcdonald Consulting Providers: Prince Ortega; Karime Cota; Nina Wilson; Eunice Sharma; Cj Rain; Cruz Reynolds; Braeden Nino; Rahul Curtis; Raheel Bradley; Jazmine Smith; Bakari Tan; Montez Lara; Kal Lopez; Nicolette Bullock; Aelxy John; Rufus Arreola; Rene Solo; Jovany Castro; Eduardo Bermudez ACCOUNT SERVICES MANAGER; Karime Roblero ACCOUNT SERVICES MANAGER; Lisa Irizarry PA; Juan Dupree Instructions Additional Instructions / Restrictions: Patient completed 8 days of IV antibiotics. Metoprolol did not change to Coreg because of Blood pressure in 110s to 120s and Hanssen of hypotension. Patient on multiple antihypertensive, pain and Ativan medications Discharge Orders/Prescriptions Prescriptions: New Entresto 24-26 mg Tablet 1 tab PO BID Qty: 60 2RF Rx Instructions: Hold for SBP less than 90 mmHg Jardiance 10 mg Tablet 10 mg PO DAILY Qty: 30 2RF Rx Instructions: Hold if patient gets vaginitis/moniliasis pantoprazole [Protonix] 40 mg tablet,delayed release (DR/EC) 40 mg PO DAILY Qty: 30 2RF Continued lorazepam [Ativan] 1 mg tablet 1 mg PO QHS cilostazol 50 mg tablet 50 mg PO BID escitalopram oxalate [Lexapro] 20 mg tablet 20 mg PO DAILY nitroglycerin 0.4 mg tablet, sublingual 0.4 mg sublingual Q5-15M PRN (Reason: chest pain) Qty: 25 6RF Rx Instructions: do not exceed 3 doses per episode aspirin [Adult Low Dose Aspirin] 81 mg tablet,delayed release (DR/EC) 81 mg PO DAILY diazepam 5 MG tablet 2.5 mg PO Q8 PRN (Reason: Muscle Spasm) Qty: 10 0RF hydrocodone-homatropine [Hycodan] 5-1.5 mg/5 mL (5 mL) syrup 5 ml PO Q6H PRN (Reason: cough) 5 Days Qty: 50 0RF prednisone 20 mg tablet 40 mg PO DAILY 4 Days Qty: 8 0RF Repatha SureClick 140 mg/mL pen injector 140 mg SC Q2W Qty: 2 11RF metoprolol tartrate 25 mg tablet 25 mg PO BID Qty: 180 3RF ticagrelor 90 mg tablet 90 mg PO BID Qty: 180 3RF Held hydrocortisone 10 mg tablet 20 mg PO .COMPLEX Hold Instructions: Hold while taking prednisone. Patient Comments: TAKE 2 TABLETS BY MOUTH at 7AM and ONE TABLET at 7PM Rx Instructions: 20 mg PO TAKE 2 TABLETS BY MOUTH at 7AM and ONE TABLET at 7PM; Discontinued lisinopril 2.5 mg tablet 2.5 mg PO DAILY Qty: 90 3RF Referrals / Follow Up: Loy Matthew DO [Med Staff - Active Staff] - Within 2 Weeks Karime Roblero NP, JERRELL-C [Non-Staff -Ordering Privileges] - 03/08/23 10:30 am Nereyda Mcdonald NP-C [Primary Care Provider] - Disposition Disposition (needs filled in before D/C Order can be placed): Home, Self Care
[2023-02-11] MEDS: Empagliflozin 10 MG Tablet PO (11:28)
[2023-02-11] MEDS: Ceftriaxone 1 GM/50 ML BAG IV (11:28)
--- NOTE | 2023-02-11 11:31 | PCM.DC.SUM ---
Providers Date of Admission: 02/04/23 Date of Discharge: 02/11/23 Primary Care Physician: HERSON Matthews Consultations 02/04/23 06:41 Consult: Cardiology Routine Consulting Provider: [facility] Reason for Consult: Elevated troponin likely due to non-STEMI type II EMERGENT Consult: No Notified: Yes Date Notified: 02/04/23 Time Notified: 09:13 Method of Notification: Verbal Method of Consult:: In-Person 02/04/23 08:11 Consult: [employer] / Pulmonary Medicine Routine Consulting Provider: [facility] Reason for Consult: RSV, on Bipap EMERGENT Consult: No Notified: Yes Date Notified: 02/04/23 Time Notified: 08:11 Method of Notification: Verbal Reason For Visit: SEVERE ACUTE RSV PNEUMONITIS WITH BACTERIAL Diagnosis Discharge Diagnosis (1) RSV bronchitis: Status: Acute Code(s): J20.5 - Acute bronchitis due to respiratory syncytial virus (2) Secondary bacterial pneumonia: Status: Acute Code(s): J15.9 - Unspecified bacterial pneumonia (3) COPD exacerbation: Status: Inactive Code(s): J44.1 - Chronic obstructive pulmonary disease with (acute) exacerbation (4) Acute respiratory failure: Status: Acute Code(s): J96.00 - Acute respiratory failure, unspecified whether with hypoxia or hypercapnia Qualifiers: Respiratory failure complication: hypoxia and hypercapnia Qualified Code(s): J96.01 - Acute respiratory failure with hypoxia; J96.02 - Acute respiratory failure with hypercapnia (5) Elevated troponin I level: Status: Acute Code(s): R79.89 - Other specified abnormal findings of blood chemistry (6) Acute metabolic encephalopathy: Status: Acute Code(s): G93.41 - Metabolic encephalopathy Plan 67-year-old female was admitted for shortness of breath, acute on chronic got worse for 2 days after RSV diagnosis. Patient is on home oxygen 3 L and undiagnosable. 1. Acute combined respiratory failure secondary to RSV pneumonitis in the setting of COPD exacerbation, chronic cigarette smoking/nicotine use patient is being admitted in ICU. Continue bronchodilator and steroid. IV Solu-Medrol changed to prednisone 40 mg daily for 5 days as per therapy. BiPAP at night. Incentive spirometry and PEP. [employer] signed off. She does have a history of squamous cell lung cancer that was treated however she continues to smoke 02/11: patient discharged only on prednisone 40 mg daily for 4 more days. Follow-up in pulmonary clinic. Hold hydrocortisone while patient is taking prednisone. 2. Acute metabolic encephalopathy related to respiratory failure as mentioned above: Currently patient is awake and alert related x 3. Acute encephalopathy resolved. 02/03 E. coli UTI: Patient had 8 days of IV antibiotics ceftriaxone. No need for further antibiotic. 3. HTN/HLD/carotid stenosis/peripheral artery disease/elevated troponin/chronic systolic CHF ? Echo with significant reduced EF to 10 to 15%. Severe segmental systolic dysfunction. Mitral valve structurally normal with mild MR. 1 to 2+ TR. RVSP 34 mmHg. Mild diffuse aortic valve thickening no aortic stenosis. Cannot exclude mobile mass on posterior medial mitral valve papillary or chordae. Troponin was elevated. Evaluated by cardiology seem to be due to increased hypoxia. Currently not appropriate for persuasion of ischemic workup but may be outpatient basis. Negative stress test in 2021. Low-dose Entresto and SGLT2. Switch metoprolol to Coreg. Spironolactone if patient can tolerate. Recommended repeat echo in 1 to 3 months. 02/11: Metoprolol was not changed to Coreg as her SBP is 110s and apprehensive of hypotension. Patient already on Entresto.Prescriptions given for empagliflozin, Entresto and follow-up in cardiology clinic. 3. GERD with history of GI bleed ? Continue with PPI ? Stable 4. Adrenal insufficiency ? Continue with hydrocortisone and Solu-Medrol 5. UTI: Urine culture shows more than 8000 colonies of E. coli, Klebsiella pneumoniae 25,000-50,000 suggestive of E. coli UTI and coronation of Klebsiella. Continue with IV antibiotics. Blood cultures x 2 negative for 5 days. ? Continue with antibiotics DVT: Therapeutic Lovenox Discharge medication reconciliation done. Discharge follow-up instructions completed. Discharge process discussed with the patient and all questions were answered to patient's satisfaction. Follow with PCP in 1 to 2 weeks Total time spent, exact 35 minutes on discharge meds reconciliation, examination, coordination of care with nurses and ancillary staff, review of imaging and blood test and discussion with the patient on follow-up instructions. Medications at Discharge Home Medications lorazepam 1 mg tablet (Ativan) 1 mg PO QHS 04/15/20 hydrocortisone 10 mg tablet 20 mg PO .COMPLEX adrenal insufficiency 02/04/21 diazepam 5 mg tablet 2.5 mg (1/2 x 5 mg) PO Q8 PRN Muscle Spasm #10 tabs 06/17/21 cilostazol 50 mg tablet 50 mg PO BID 12/18/21 evolocumab 140 mg/mL subcutaneous pen injector (Repatha SureClick) 140 mg subcut Q2W #2 mL 05/18/22 escitalopram oxalate 20 mg tablet (Lexapro) 20 mg PO DAILY 06/30/22 nitroglycerin 0.4 mg sublingual tablet 0.4 mg sublingual Q5-15M PRN chest pain #25 tabs 06/30/22 metoprolol tartrate 25 mg tablet 25 mg PO BID #180 tabs 07/14/22 ticagrelor 90 mg tablet 90 mg PO BID blood thinner #180 tabs 08/16/22 aspirin 81 mg tablet,delayed release (Adult Low Dose Aspirin) 81 mg PO DAILY 01/03/23 hydrocodone-homatropine 5 mg-1.5 mg/5 mL (5 mL) oral syrup (Hycodan) 5 ml PO Q6H PRN cough 5 days #50 mL 02/03/23 empagliflozin 10 mg tablet (Jardiance) 10 mg PO DAILY #30 tabs 02/11/23 pantoprazole 40 mg tablet,delayed release (Protonix) 40 mg PO DAILY #30 tabs 02/11/23 prednisone 20 mg tablet 40 mg (2 x 20 mg) PO DAILY 4 days #8 tabs 02/11/23 sacubitril 24 mg-valsartan 26 mg tablet (Entresto) 1 tab PO BID #60 tabs 02/11/23 Physical Exam Narrative Seen and examined. Overall patient feeling better than yesterday. Patient on BiPAP at night 35%. On 5 L of oxygen during daytime. Patient chronically on 3 L of oxygen at home. 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 Although patient required 6 L on walking but she states he feels normal and does not feel dyspneic. The option was given to stay 1 more night but she states he feels fine to go home. Physical exam General: Alert, Oriented x3, Cooperative HEENT: Atraumatic, PERRLA, EOMI, Normocephalic Oral: No Gingival or Mucosal Lesions/ Ulcerations Neck: Supple, No JVD, Negative Carotid Bruits Lungs: Air entry diminished in bilateral lung bases. Bilateral expiratory rhonchi. No tachypnea. Cardiovascular: Regular rate, Regular Rhythm, Normal S1, Normal S2, No murmurs Abdomen: Bowel Sounds Present, Soft, Non Tender, Non-Distended : No renal angle tenderness. No suprapubic tenderness. Extremities: No edema, Capillary Refill Less than 3 Seconds Skin: No rashes, No breakdown Musculoskeletal: No Tenderness to Palpation of Joints or Extremities. ROM full and intact. Neurological: Cranial nerves II-XII grossly intact, DTR 2+/4. No acute focal neurological deficit. Psych/Mental Status: Normal Affect, Appropriate. Weight / BMI Weight Weight: 128 lb 1.417 oz Body Mass Index (BMI) 23.6 ABG / Lab / Microbiology Data 02/08/23 05:55 02/08/23 05:55 Microbiology: Microbiology 02/04/23 03:27 Blood Culture (Wb) - Anticubital Left Blood Culture - Final No growth in 5 days. 02/04/23 03:18 Blood Culture (Wb) - Left Hand Blood Culture - Final No growth in 5 days. 02/04/23 04:07 Urine, Clean Catch Urine Culture - Final Escherichia coli Klebsiella pneumoniae sp pneum 02/06/23 20:28 Stool Stool Occult Blood (MILDRED) - Final D/C Instructions Discharge Diet: No restrictions Weight Bearing Status: Weight bearing as tolerated Call your doctor if you observe: Fever of 101 or Higher, Coldness, Increased Pain, Numbness or Tingling, Change in Color, Inability to urinate, Inability to have a bowel movement, Using more than 1 pad per hour, Shortness of breath, Dizziness, Fainting spells, Swelling in the ankles, Chest pain, Prolonged hiccupping, Increased palpitations (irregular heartbeat) and Calf discomfort When: IN 2 WEEKS Meaningful Use Info Meaningful Use Diagnoses (Choose all that apply): None applicable Discharge Plan Admission Admit Date/Time: 02/04/23 06:12 Primary Reason for Your Visit: COPD exacerbation from RSV bronchitis Attending Provider: Dewayne Cleveland Primary Care Provider: Nereyda Mcdonald Consulting Providers: Prince Ortega; Karime Cota; Nina Wilson; Eunice Sharma; Cj Rain; Cruz Reynolds; Braeden Nino; Rahul Curtis; Raheel Bradley; Jazmine Smith; Bakari Tan; Montez Lara; Kal Lopez; Nicolette Bullock; Alexy John; Rufus Arreola; Rene Solo; Jovany Castro; Eduardo Bermudez [employer]; Karime Roblero [employer]; Lisa Irizarry PA; Juan Dupree Instructions Additional Instructions / Restrictions: Patient completed 8 days of IV antibiotics. Metoprolol did not change to Coreg because of Blood pressure in 110s to 120s and Hanssen of hypotension. Patient on multiple antihypertensive, pain and Ativan medications Discharge Orders/Prescriptions Prescriptions: New Entresto 24-26 mg Tablet 1 tab PO BID Qty: 60 2RF Rx Instructions: Hold for SBP less than 90 mmHg Jardiance 10 mg Tablet 10 mg PO DAILY Qty: 30 2RF Rx Instructions: Hold if patient gets vaginitis/moniliasis pantoprazole [Protonix] 40 mg tablet,delayed release (DR/EC) 40 mg PO DAILY Qty: 30 2RF Continued lorazepam [Ativan] 1 mg tablet 1 mg PO QHS cilostazol 50 mg tablet 50 mg PO BID escitalopram oxalate [Lexapro] 20 mg tablet 20 mg PO DAILY nitroglycerin 0.4 mg tablet, sublingual 0.4 mg sublingual Q5-15M PRN (Reason: chest pain) Qty: 25 6RF Rx Instructions: do not exceed 3 doses per episode aspirin [Adult Low Dose Aspirin] 81 mg tablet,delayed release (DR/EC) 81 mg PO DAILY diazepam 5 MG tablet 2.5 mg PO Q8 PRN (Reason: Muscle Spasm) Qty: 10 0RF hydrocodone-homatropine [Hycodan] 5-1.5 mg/5 mL (5 mL) syrup 5 ml PO Q6H PRN (Reason: cough) 5 Days Qty: 50 0RF prednisone 20 mg tablet 40 mg PO DAILY 4 Days Qty: 8 0RF Repatha SureClick 140 mg/mL pen injector 140 mg SC Q2W Qty: 2 11RF metoprolol tartrate 25 mg tablet 25 mg PO BID Qty: 180 3RF ticagrelor 90 mg tablet 90 mg PO BID Qty: 180 3RF Held hydrocortisone 10 mg tablet 20 mg PO .COMPLEX Hold Instructions: Hold while taking prednisone. Patient Comments: TAKE 2 TABLETS BY MOUTH at 7AM and ONE TABLET at 7PM Rx Instructions: 20 mg PO TAKE 2 TABLETS BY MOUTH at 7AM and ONE TABLET at 7PM; Discontinued lisinopril 2.5 mg tablet 2.5 mg PO DAILY Qty: 90 3RF Referrals / Follow Up: Loy Matthew DO [Med Staff - Active Staff] - 02/25/23 9:15 am Karime Roblero NP, [employer]-C [Non-Staff -Ordering Privileges] - 03/08/23 10:30 am Nereyda Mcdonald NP-C [Primary Care Provider] - 02/18/23 1:20 pm Disposition Disposition (needs filled in before D/C Order can be placed): Home, Self Care Charges/Coding Visit Charges Inpatient E&M: 27812 Disch Hosp >30min
--- NOTE | 2023-02-11 15:00 | CASEMGMT ---
Patient needing increase in home oxygen, 4lpm at rest and 6lpm exertion. Updated script received and sent to [facility] and arranged for delivery of portable tank to room. RN CM in to discuss discharge with patient. Patient denies further needs at discharge. Patient had no further questions or concerns at this time.
[2023-02-11] MEDS: Albuterol 2.5 MG/3 ML VIAL.NEB. INHALATION (15:04)
== END 2023-02-11 18:06 | disposition home or self-care (01) | DRG 189 ==
LOC: ED 06:09 → ICU 06:38 → PCU 02-10 17:55
PROVIDERS: Family Medicine; Internal Medicine Critical Care Medicine; Admitting Provider Internal Medicine; Emergency Provider Emergency Medicine; PCP Nurse Practitioner Family; Visit Provider Internal Medicine
DX: J96.01 Acute respiratory failure with hypoxia (principal); J12.1 Respiratory syncytial virus pneumonia; G93.41 Metabolic encephalopathy; J15.9 Unspecified bacterial pneumonia; E87.4 Mixed disorder of acid-base balance; E27.40 Unspecified adrenocortical insufficiency; I42.9 Cardiomyopathy, unspecified; I50.22 Chronic systolic (congestive) heart failure; J44.0 Chronic obstructive pulmonary disease with (acute) lower respiratory infection; J44.1 Chronic obstructive pulmonary disease with (acute) exacerbation; N39.0 Urinary tract infection, site not specified; I47.10 Supraventricular tachycardia, unspecified; I11.0 Hypertensive heart disease with heart failure; I73.9 Peripheral vascular disease, unspecified; J96.02 Acute respiratory failure with hypercapnia; I65.29 Occlusion and stenosis of unspecified carotid artery; I34.0 Nonrheumatic mitral (valve) insufficiency; I25.10 Atherosclerotic heart disease of native coronary artery without angina pectoris; J20.5 Acute bronchitis due to respiratory syncytial virus; M79.10 Myalgia, unspecified site; E78.5 Hyperlipidemia, unspecified; M19.90 Unspecified osteoarthritis, unspecified site; I25.2 Old myocardial infarction; K21.9 Gastro-esophageal reflux disease without esophagitis; F41.9 Anxiety disorder, unspecified; F17.210 Nicotine dependence, cigarettes, uncomplicated; Z79.52 Long term (current) use of systemic steroids; Z79.02 Long term (current) use of antithrombotics/antiplatelets; Z95.5 Presence of coronary angioplasty implant and graft; Z82.3 Family history of stroke; Z79.891 Long term (current) use of opiate analgesic; B96.20 Unspecified Escherichia coli [E. coli] as the cause of diseases classified elsewhere; R77.8 Other specified abnormalities of plasma proteins; B96.1 Klebsiella pneumoniae [K. pneumoniae] as the cause of diseases classified elsewhere
CPT/HCPCS: 36600; 71045; 71275; 80048; 80053; 81001; 82274; 82803; 83605; 83735; 84100; 84443; 84484; 85025; 85379; 85610; 85730; 87040; 87077; 87086; 87088; 87186; 87428; 87807; 93005; 93306; 93970; 94002; 94003; 94640; 94668; 94762; 97110; 97116; 97162; 97166; 97530; 97535; 97802; 97803; 99283; 99285; 99406; J7030; J7040; Q9957; Q9967; A4216; C8929; J1940; J2405

== ENCOUNTER → 2023-04-11 | Outpatient (CLI) | payer MEDICARE, SELFPAY ==
--- OUTSIDE RECORDS SUMMARY | 2023-04-11 06:22 | XMS RPT_ITS | CCD ---
Author Name Unknown Address [address] [place] [address] [address] [place] [address] Organization [facility] Care Team Providers [facility] [employer] Location Manager Name Role Phone Steven Chow Primary Care [...] [HYDROCODONE-ACETA MINOPHEN] Drug Allergy 06-10-2014 GI Upset [facility] Work Phone: (15 sources) Acetaminophen / oxyCODONE; Translations: [OXYCODONE-ACETAMI NOPHEN] Drug Allergy 06-10-2014 GI Upset [facility] Work Phone: Medications Completed/Discontinued Medications Medication Drug [...] and due to atherosclerosis; Translations: [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, bilateral [...] 156.2 cm Jeevan Johnson MD Work Phone: [facility] 01-25-2023 10:41-0500 Body temperature 97.39 [degF] Jeevan Johnson MD Work Phone: [facility] 01-25-2023 10:41-0500 Body weight 57.83 kg Jeevan Johnson MD Work Phone: [facility] 01-25-2023 10:41-0500 Diastolic blood pressure 74 mm[Hg] Jeevan Johnson MD Work Phone: [facility] 01-25-2023 10:41-0500 Heart rate 88 /min Jeevan Johnson MD Work Phone: [facility] 01-25-2023 10:41-0500 SaO2% (BldA) [Mass fraction] 96 % Jeevan Johnson MD Work Phone: [facility] 01-25-2023 10:41-0500 Systolic blood pressure 113 mm[Hg] Jeevan Johnson MD Work Phone: [facility] 07-19-2022 10:18-0400 Body height 156 cm Robin Fried MEDICAL ADMINISTRATOR.[employer] Work Phone: [facility] 07-19-2022 10:18-0400 Body temperature 97.81 [degF] Robin Fried MEDICAL ADMINISTRATOR.[employer] Work Phone: [facility] 07-19-2022 10:18-0400 Body weight 59.65 kg Robin Fried MEDICAL ADMINISTRATOR.[employer] Work Phone: [facility] 07-19-2022 10:18-0400 Diastolic blood pressure 82 mm[Hg] Robin Fried MEDICAL ADMINISTRATOR.[employer] Work Phone: [facility] 07-19-2022 10:18-0400 Heart rate 90 /min Robin Fried MEDICAL ADMINISTRATOR.[employer] Work Phone: [facility] 07-19-2022 10:18-0400 SaO2% (BldA) [Mass fraction] 95 % Robin Fried MEDICAL ADMINISTRATOR.[employer] Work Phone: [facility] 07-19-2022 10:18-0400 Systolic blood pressure 123 mm[Hg] Robin Fried MEDICAL ADMINISTRATOR.[employer] Work Phone: [facility] 01-13-2022 14:52-0500 Body temperature 98.4 [degF] Eliud Maya MD Work Phone: [facility] 01-13-2022 14:52-0500 Body weight 59.42 kg Eliud Maya MD Work Phone: [facility] 01-13-2022 14:52-0500 Diastolic blood pressure 85 mm[Hg] Eliud Maya MD Work Phone: [facility] 01-13-2022 14:52-0500 Heart rate 104 /min Eliud Maya MD Work Phone: [facility] 01-13-2022 14:52-0500 SaO2% (BldA) [Mass fraction] 94 % Eliud Maya MD Work Phone: [facility] 01-13-2022 14:52-0500 Systolic blood pressure 126 mm[Hg] Eliud Maya MD Work Phone: [facility] 07-14-2021 10:59-0400 Body height 157.5 cm Eliud Maya MD Work Phone: [facility] 07-14-2021 10:59-0400 Body temperature 98.29 [degF] Eliud Maya MD Work Phone: [facility] 07-14-2021 10:59-0400 Body weight 56.47 kg Eliud Maya MD Work Phone: [facility] 07-14-2021 10:59-0400 Diastolic blood pressure 68 mm[Hg] Eliud Maya MD Work Phone: [facility] 07-14-2021 10:59-0400 Heart rate 90 /min Eliud Maya MD Work Phone: [facility] 07-14-2021 10:59-0400 SaO2% (BldA) [Mass fraction] 95 % Eliud Maya MD Work Phone: [facility] 07-14-2021 10:59-0400 Systolic blood pressure 100 mm[Hg] Eliud Maay MD Work Phone: [facility] Encounters Encounter Date Encounter Type Care Provider Facility Start: 01-25-2023 End: 01-25-2023 ambulatory STEVEN HENRIK AUSTEN Facility:[facility] Start: 01-25-2023 End: 01-25-2023 ambulatory Jeevan [...] Author Start: 07-13-2025 DIABETES SCREEN DIABETES SCREEN [facility] Start: 07-13-2025 Diabetes Screening Diabetes Screenin g [facility] Start: 01-13-2025 DIABETES SCREEN DIABETES SCREEN [facility] Start: 07-09-2024 DIABETES SCREEN DIABETES SCREEN [facility] Start: 07-27-2023 End: 02-24-2024 Ct thorax w/o contrast material CT CHEST WO IVCON Radiology Routine Malignant neoplasm of unspecified part of unspecified bronchus or lung (HCC) Expected: 07/27/2023 (Approximate), Expires: 02/24/2024 [facility] Work Phone: Immunizations Immunization Date Immunization Notes Care Provider Talisha gaines 11-12-2021 influenza virus vaccine, unspecified formulation Xr Mob Work Phone: [facility] 11-25-2017 influenza, injectabl e, quadrivalent, preservative free Ct (I-Stat) Work Phone: [facility] 11-30-2016 influenza, injectabl e, quadrivalent, preservative free Ct (I-Stat) Work Phone: [facility] 10-27-2015 influenza, high dose seasonal, preservative-free Ct (I-Stat) Work Phone: [facility] 11-25-2014 influenza, injectabl e, quadrivalent, preservative free Ct (I-Stat) Work Phone: [facility] Work Phone: Payers Date Payer Category Payer Medicare [id number] 2021 Unknown ANTHEM BLUE [facility] AND BLUE [employer] ANTHEM [employer] O [id number] 2021-Present [phone] [address] [place] [address] [facility] [id number] 2021 Unknown [id number] 2020 Medicaid [facility] DEPT OF JOB [id number] 2020-Present [phone] [address] [place] [address] [id number] 2020 Medicare MEDICARE MEDICAR E PART A AND B [id number] 2020-Present [phone] [place] [address] [id number] Social History Date Type Detail Facility Start: 08-22-2020 End: 01-25-2023 Tobacco smoking status NEIS Current every day smoker [facility] Start: 02-15-1972 History of tobacco use Cigarette Smo ker [facility] Start: 08-22-2020 End: 07-19-2022 Cigarettes smoked current (pack per day) - Reported [facility] Start: 08-22-2020 End: 01-25-2023 Tobacco use and exposure Never used [facility] Start: 08-22-2020 Alcohol intake Lifetime non-d polina (finding) [facility] Work Phone: Start: 08-05-2020 History SDOH Alcohol Frequency 1 [employer] Phone: Start: 1955 Sex Assigned At Not on file [facility] [employer] Work Phone: Start: 01-03-2022 End: 01-13-2022 Exposure to SARS-CoV-2 (event) Not sure [facility] Start: 1955 Sex Assigned At Female [employer] Work Phone: Start: 01-15-2021 End: 01-25-2023 Alcohol intake Current non-drinker of alcohol (finding) [facility] Start: 11-05-2019 End: 01-25-2023 Tobacco Comment Pt has cut back to 1/4 pack daily. [facility] Start: 01-15-2021 End: 07-19-2022 Tobacco use panel [facility] Adult Depression Screening Assessment 0 [facility] Start: 07-13-2020 Gender identity Identifies as female gender (finding) [facility] Start: 07-13-2020 Sexual orientation Heterosexual (moriah gore [facility] Clinical Notes 08-28-2014 to 01-25-2023 Jeevan Johnson MD - 01/25/2023 10:50 AM Senia Branham, RT(R) - 01/25/2023 10:10 AM ESTTelephone Encounter - Lilly Grant - 08/30/2022 8:18 AM EDT Note Date & Type Note Facility 01-25-2023 Note HNO ID: [id number] Author: Jeevan Johnson MD Service: ? Author [...] Date APPENDECTOMY 1974 PAST SURGICAL HISTORY OF [id number] cardiac stent x4 PAST SURGICAL HISTORY OF [...] which included preparing to see the patient, [id number] patient care, completing clinical documentation, obtaining and/or reviewing separately obtained history, performing a medically appropriate examination, counseling and educating the patient/family/caregiver, ordering medications, tests, or procedures, independently interpreting results (not separately reported), and communicating results to the patient/family/caregiver. Electronically Signed: Jeevan Johnson MD January 25, 2023 10:52 AM [facility] 01-25-2023 Note HNO ID: [id number] Author: Senia Ponce RT(R) Service: Radiology Author [...] Ponce RT(R) January 25, 2023 10:15 AM [facility] 01-25-2023 History of Presen t illness [...] Date APPENDECTOMY 1974 PAST SURGICAL HISTORY OF [id number] cardiac stent x4 PAST SURGICAL HISTORY OF [...] which included preparing to see the patient, [id number] patient care, completing clinical documentation, obtaining and/or reviewing separately obtained history, performing a medically appropriate examination, counseling and educating the patient/family/caregiver, ordering medications, tests, or procedures, independently interpreting results (not separately reported), and communicating results to the patient/family/caregiver. Electronically Signed: Jeevan Johnson MD January 25, 2023 10:52 AM documented in this encounter [facility] 01-25-2023 History of Presen t illness Narrative [...] IV DATA: Not applicable SIGNED BY: RT Radha(R) January 25, 2023 10:15 AM documented in this encounter [facility] 08-30-2022 Miscellaneous Notes Patient has been identified [...] advise. Lilly Walsh documented in this encounter [facility] 08-19-2022 Note HNO ID: [id number] Author: RT Marylin(R) Service: Nuclear Medicine Author [...] RT Marylin(R) August 19, 2022 10:06 AM [facility] 08-19-2022 History of Presen t illness [...] 2022 10:06 AM documented in this encounter [facility] 07-23-2022 Note HNO ID: [id number] Author: RT Sally(R) Service: ? Author Type: [...] RT Sally(R) July 23, 2022 3:10 PM [facility] 07-23-2022 History of Presen t illness [...] 2022 3:10 PM documented in this encounter [facility] 07-19-2022 Miscellaneous Notes Sent e-mail to [facility] leadership regarding this. Patient states she left office visit today without being seen. She states she does not want her insurance billed for OV. documented in this encounter [facility] 07-19-2022 Note HNO ID: [id number] Author: Robin Fried APRN.[employer] Service: ? Author Type: Nurse Practitioner Type: Progress Notes Filed: 07/19/2022 11:26 AM Note Text: Pt. left without being seen. Robin Fried APRN.CNP [facility] 07-19-2022 History of Presen t illness Narrative Pt. left without being seen. Robin Fried APRN.CNP documented in this encounter [facility] 07-13-2022 Note HNO ID: [id number] Author: RT Abel(R) Service: ? Author Type: [employer] Dispatcher Type: Progress Notes Filed: 07/13/2022 1:59 PM [...] RT Brittanie(R) July 13, 2022 1:59 PM [facility] 07-13-2022 History of Presen t illness [...] 2022 1:59 PM documented in this encounter [facility] 03-01-2022 Miscellaneous Notes Patient's request for medication [...] you. Kayla Gibson documented in this encounter [facility] 01-13-2022 History of Presen t illness Narrative PATIENT NAME: Jonelle Coronado. CLINIC NO: [id number]. ATTENDING PHYSICIAN: Eliud Maya MD. DATE OF [...] Abs Lymph 1.00 - 4.00 k/uL 3.51 Wetzel% % 7.1 Abs Wetzel <0.87 k/uL 0.86 Eosin% % 2.1 Abs [...] Steven Chow MD documented in this encounter [facility] 09-07-2021 Miscellaneous Notes Patient's request for medication [...] advise. Carmen Martinez documented in this encounter [facility] 07-14-2021 History of Presen t illness Narrative PATIENT NAME: Jonelle Coronado. CLINIC NO: [id number]. ATTENDING PHYSICIAN: Eliud Maya MD. DATE OF [...] Abs Lymph 1.00 - 4.00 k/uL 2.74 Wetzel% % 5.3 Abs Wetzel <0.87 k/uL 0.73 Eosin% % 1.7 Abs [...] Steven Chow MD documented in this encounter [facility] 07-09-2021 History of Presen t illness Narrative [...] TIME: 12:22 PM documented in this encounter [facility] documented as of this encounter (statuses as of 07/10/2021) [facility] History of Past illness Narrative* Problem Noted Date Resolved Date Lung cancer, hilus 08/28/2014 12/16/2014 Lung mass 08/28/2014 09/12/2014 documented as of this encounter (statuses as of 07/15/2021) [address]15-2015 History of Past illness Narrative* Problem Noted Date Resolved Date Lung cancer, hilus 08/28/2014 12/16/2014 Lung mass 08/28/2014 09/12/2014 documented as of this encounter (statuses as of 09/07/2021) [facility] History of Past illness Narrative* Problem Noted Date Resolved Date Lung cancer, hilus 08/28/2014 12/16/2014 Lung mass 08/28/2014 09/12/2014 documented as of this encounter (statuses as of 01/14/2022) [facility] History of Past illness Narrative* Problem Noted Date Resolved Date Lung cancer, hilus 08/28/2014 12/16/2014 Lung mass 08/28/2014 09/12/2014 documented as of this encounter (statuses as of 03/01/2022) [address]15-2015 History of Past illness Narrative* Problem Noted Date Resolved Date Lung cancer, hilus 08/28/2014 12/16/2014 Lung mass 08/28/2014 09/12/2014 documented as of this encounter (statuses as of 07/19/2022) [facility] History of Past illness Narrative* Problem Noted Date Resolved Date Lung cancer, hilus 08/28/2014 12/16/2014 Lung mass 08/28/2014 09/12/2014 documented as of this encounter (statuses as of 07/19/2022) [facility] History of Past illness Narrative* Problem Noted Date Resolved Date Lung cancer, hilus 08/28/2014 12/16/2014 Lung mass 08/28/2014 09/12/2014 documented as of this encounter (statuses as of 07/20/2022) [facility] History of Past illness Narrative* Problem Noted Date Diagnosed Date Resolved Date Lung cancer, hilus 08/28/2014 5 Lung mass 08/28/2014 09/12/2014 documented as of this encounter (statuses as of 08/31/2022) [facility] History of Past illness Narrative* Problem Noted Date Diagnosed Date Resolved Date Lung cancer, hilus 08/28/2014 5 Lung mass 08/28/2014 09/12/2014 documented as of this encounter (statuses as of 12/19/2022) [facility] History of Past illness Narrative* Problem Noted Date Diagnosed Date Resolved Date Lung cancer, hilus 08/28/2014 5 Lung mass 08/28/2014 09/12/2014 documented as of this encounter (statuses as of 12/19/2022) [facility] History of Past illness Narrative* Problem Noted Date Diagnosed Date Resolved Date Lung cancer, hilus 08/28/2014 5 Lung mass 08/28/2014 09/12/2014 documented as of this encounter (statuses as of 01/26/2023) [facility] History of Past illness Narrative* Problem Noted Date Diagnosed Date Resolved Date Lung cancer, hilus 08/28/2014 5 Lung mass 08/28/2014 09/12/2014 documented as of this encounter (statuses as of 01/26/2023) [facility] Diagnosis 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, bilateral legs (HCC) documented in this encounter [employer] Work Phone: Evaluation note* Diagnosis 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, bilateral legs (HCC) documented in this encounter [employer] Phone: Evaluation note* Diagnosis Malignant neoplasm of unspecified part of unspecified bronchus or lung (HCC) Adrenal insufficiency (HCC) 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, 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) [facility] Diagnosis Adrenal insufficiency (HCC)- Primary 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, 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) [facility] Diagnosis 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, unspecified laterality (HCC) Malaise and fatigue Other malaise and fatigue Adrenal insufficiency (HCC) Glucocorticoid deficiency [facility] Diagnosis Malignant neoplasm of unspecified part of unspecified bronchus or lung (HCC)- Primary 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, unspecified laterality (HCC) [facility] encounter [facility]* Diagnosis 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, unspecified laterality (HCC) Malaise and fatigue Other malaise and fatigue Adrenal insufficiency (HCC) Glucocorticoid deficiency documented in this encounter [facility] note* Diagnosis Malignant neoplasm of unspecified part of unspecified bronchus or lung (HCC)- Primary documented in this encounter [facility] note* Diagnosis 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, unspecified laterality (HCC) Malaise and fatigue Other malaise and fatigue Adrenal insufficiency (HCC) Glucocorticoid deficiency documented in this encounter [facility] note* Diagnosis Malignant neoplasm of unspecified part of unspecified bronchus or lung (HCC) 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, unspecified laterality (HCC) documented in this encounter [facility] note* Diagnosis Malignant neoplasm of unspecified part of unspecified bronchus or lung (HCC)- Primary documented in this encounter [facility] note* Diagnosis 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, unspecified laterality (HCC) documented in this encounter [facility] Summary Purpose Family History No Family History Records FoundNo Family History Records FoundNo Family History Records FoundNo Family History Records Found Advance Directives No Advanced Directives Records FoundNo Advanced Directives Records FoundNo Advanced Directives Records FoundNo Advanced Directives Records Found Reason for Referral Status Reason Specialty Diagnoses / Procedures Referre d By Contact Referred To Contact Closed Radiology Diagnoses 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, bilateral legs (HCC) Procedures CTA ABDOMINAL AORTA W BILAT RUNOFF W WO CONTRAST Joey Oglesby MD [address] [place] [address] [address] [place] [address] Specialty Diagnoses / Procedures Referred By Contac t Referred To Contact CT IMAGING Diagnoses Malignant neoplasm of unspecified part of unspecified bronchus or lung (HCC) Adrenal insufficiency (HCC) 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, 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) Procedures CT CHEST W IVCON CAT SCAN OF CHEST CONTRAST Eliud Maya MD [address] [place] [address] Ct Imaging Referral ID Status Reason Start Date Expiration Date V isits Requested Visits Authorized [id number] Closed Auto-Generate d Referral 07/09/2021 02/14/2022 1 1 Specialty Diagnoses / Procedures Referred By Contac t Referred To Contact CT IMAGING Diagnoses Malignant neoplasm of unspecified part of unspecified bronchus or lung (HCC) 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, unspecified laterality (HCC) Procedures CT CHEST WO IVCON DIAGNOSTIC COMPUTED TOMOGRAPHY THORAX W/O CNTRST Eliud Maya MD [address] [place] [address] Ct Imaging Referral ID Status Reason Start Date Expiration Date Visits Requested Visits Authorized [id number] Authorized Auto-Generat ed Referral 07/13/2022 02/12/2023 1 1 Specialty Diagnoses / Procedures Referred By Contac t Referred To Contact CT IMAGING Diagnoses Malignant neoplasm of unspecified part of unspecified bronchus or lung (HCC) 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, unspecified laterality (HCC) Procedures CT CHEST WO IVCON DIAGNOSTIC COMPUTED TOMOGRAPHY THORAX W/O CNTRST Eliud Maya MD [address] [place] [address] [place] [id number] Referral ID Status Reason Start Date Expiration Date V isits Requested Visits Authorized [id number] Closed Auto-Generate d Referral 07/13/2022 02/12/2023 1 1 Specialty Diagnoses / Procedures Referred By Contac t Referred To Contact CT IMAGING Diagnoses Malignant neoplasm of unspecified part of unspecified bronchus or lung (HCC) Procedures CT CHEST WO IVCON DIAGNOSTIC COMPUTED TOMOGRAPHY THORAX W/[place] [address] [place] [address] [place] [id number] Referral ID Status Reason Start Date Expiration Date Visits Requested Visits Authorized [id number] Authorized Auto-Generat ed Referral 07/27/2023 02/24/2024 1 1 Additional Source Comments INFORMATION SOURCE (unrecogn ized section and content) DATE CREATED AUTHOR AUTHOR'S ORGANIZ ATION 09/18/2020 [facility] DATE CREATED AUTHOR AUTHOR'S ORGANIZ ATION [facility]/2023 [facility] DATE CREATED AUTHOR AUTHOR'S ORGANIZ ATION 01/27/2023 [facility] Source Comments (unrecognize d section and content) In the event this informatio n is protected by the Federal Confidentiality of Alcohol and Drug Abuse Patient Records regulations: The Federal rules restrict any use of the information to criminally investigate or prosecute any alcohol or drug abuse patient.[facility] the event this information is protected by the Federal Confidentiality of Alcohol and Drug Abuse Patient Records regulations: The Federal rules restrict any use of the information to criminally investigate or prosecute any alcohol or drug abuse patient.[facility] the event this information is protected by the Federal Confidentiality of Alcohol and Drug Abuse Patient Records regulations: The Federal rules restrict any use of the information to criminally investigate or prosecute any alcohol or drug abuse patient.[facility] the event this information is protected by the Federal Confidentiality of Alcohol and Drug Abuse Patient Records regulations: The Federal rules restrict any use of the information to criminally investigate or prosecute any alcohol or drug abuse patient.[facility] the event this information is protected by the Federal Confidentiality of Alcohol and Drug Abuse Patient Records regulations: The Federal rules restrict any use of the information to criminally investigate or prosecute any alcohol or drug abuse patient.[facility] the event this information is protected by the Federal Confidentiality of Alcohol and Drug Abuse Patient Records regulations: The Federal rules restrict any use of the information to criminally investigate or prosecute any alcohol or drug abuse patient.[facility] the event this information is protected by the Federal Confidentiality of Alcohol and Drug Abuse Patient Records regulations: The Federal rules restrict any use of the information to criminally investigate or prosecute any alcohol or drug abuse patient.[facility] the event this information is protected by the Federal Confidentiality of Alcohol and Drug Abuse Patient Records regulations: The Federal rules restrict any use of the information to criminally investigate or prosecute any alcohol or drug abuse patient.[facility] the event this information is protected by the Federal Confidentiality of Alcohol and Drug Abuse Patient Records regulations: The Federal rules restrict any use of the information to criminally investigate or prosecute any alcohol or drug abuse patient.[facility] the event this information is protected by the Federal Confidentiality of Alcohol and Drug Abuse Patient Records regulations: The Federal rules restrict any use of the information to criminally investigate or prosecute any alcohol or drug abuse patient.[facility] the event this information is protected by the Federal Confidentiality of Alcohol and Drug Abuse Patient Records regulations: The Federal rules restrict any use of the information to criminally investigate or prosecute any alcohol or drug abuse patient.[facility] the event this information is protected by the Federal Confidentiality of Alcohol and Drug Abuse Patient Records regulations: The Federal rules restrict any use of the information to criminally investigate or prosecute any alcohol or drug abuse patient.[facility] the event this information is protected by the Federal Confidentiality of Alcohol and Drug Abuse Patient Records regulations: The Federal rules restrict any use of the information to criminally investigate or prosecute any alcohol or drug abuse patient.[facility] [place] the event this information is protected by the Federal Confidentiality of Alcohol and Drug Abuse Patient Records regulations: The Federal rules restrict any use of the information to criminally investigate or prosecute any alcohol or drug abuse patient.[facility] Reason for Visit (unrecogniz ed section and [...] OF CHEST CONTRAST Eliud Maya MD [address] [place] [address] Ct Imaging Referral ID Status Reason Start Date Expiration Date V isits Requested Visits Authorized [id number] Closed Auto-Generate d Referral 07/09/2021 02/14/2022 1 [...] TOMOGRAPHY THORAX W/O CNTRST Eliud [place] [address] [place] [id number] Referral ID Status Reason Start Date Expiration Date V isits Requested Visits Authorized [id number] Closed Auto-Generate d Referral 07/13/2022 02/12/2023 1 1 Care Teams (unrecognized sec tion and content) [facility] Location [employer] Relationship Specialty Start Date End Date Steven Chow MD PCP - General Family Practice 06/07/14 [facility] Location Manager Relationship Specialty Start Date End Date Steven Chow MD PCP - General Family Practice 06/07/14 [facility] Location Manager Relationship Specialty Start Date End Date Steven Chow MD PCP - General Family Medicine 06/07/14 [facility] Location Manager Relationship Specialty Start Date End Date Steven Chow MD PCP - General Family Medicine 06/07/14 [facility] Location Manager Relationship Specialty Start Date End Date Steven Chow MD PCP - General Family Medicine 06/07/14 [facility] Location Manager Relationship Specialty Start Date End Date Steven Chow MD PCP - General Family Medicine 06/07/14 [facility] Location Manager Relationship Specialty Start Date End Date Steven Chow MD PCP - [facility] 06/07/14 [facility] Location Manager Relationship Specialty Start Date End Date Steven Chow MD PCP [facility] 06/07/14 [facility] Location Manager Relationship Specialty Start Date End Date Steven Chow MD PCP [facility] 06/07/14 [facility] Location Manager Relationship Specialty Start Date End Date Steven Chow MD PCP [facility] 06/07/14 [facility] Location Manager Relationship Specialty Start Date End Date Steven Chow MD [facility] 06/07/14 [facility] Location Manager Relationship Specialty Start Date End Date Steven Chow MD [facility] 06/07/14 [facility] Location Manager Relationship Specialty Start Date End Date Steven Chow MD [facility] 06/07/14 FOR RECORDS PERTAINING TO PATIENTS [...] BE BASED ON THE PRIMARY CLINICAL RECORDS. [facility] [employer] [facility]. provides no warranty or guarantee of the accuracy or completeness of information in this document.
--- NOTE | 2023-04-11 06:24 | ECHOLC_ITS ---
Reason For Study: Cardiomyopathy Procedure This was a limited 2D transthoracic echocardiogram. The study was technically difficult. Contrast injection was performed. Exam performed in department. Left Ventricle Normal size and thickness. Basal to mid posterior wall hypokinesis. Estimated LV systolic ejection fraction 50%. Right Ventricle Normal right ventricle. Atria The left and right atria are normal. Mitral Valve Trivial mitral valve insufficiency. Tricuspid Valve Normal tricuspid valve. Aortic Valve Trisinus/trileaflet aortic valve. Pulmonic Valve The pulmonic valve is not well visualized. Great Vessels The aortic root is not well visualized. Pericardium/Pleural No pericardial effusion. Medication 20 gauge I.V. with prn adaptor inserted into right arm. Diluted definity 2.5ml given slow IV push to enhance endocardial definition. MMode/2D Measurements & Calculations LVIDd: 4.6 cm IVSd: 0.76 cm LA dimension: 3.7 cm LVIDs: 3.2 cm LVPWd: 0.61 cm RVDd: 3.2 cm FS: 29.3 % LAV(MOD-sp4): 32.0 ml LVAd ap4: 27.0 cm2 SV(MOD-sp4): 39.2 ml LVLd ap4: 6.9 cm EDV(MOD-sp4): 85.7 ml EDV(sp4-el): 89.2 ml LVAs ap4: 18.5 cm2 LVLs ap4: 6.1 cm ESV(MOD-sp4): 46.6 ml ESV(sp4-el): 47.8 ml EF(MOD-sp4): 45.7 % EF(sp4-el): 46.4 % SV(sp4-el): 41.4 ml LA A4 area: 14.1 cm2 RA A4 area: 12.3 cm2 ECHO/Echo Limited w/Contrast Interpretation Summary Basal to mid posterior wall hypokinesis. Estimated LV systolic ejection fractio n 50%. Ordering Physician: Karime Roblero Referring Physician: Karime Roblero Performed By: Luis Angel Alberto RCS
--- NOTE | 2023-04-14 15:07 | STRESSREP ---
Stress Test Report Date: 04/11/2023 Procedure: Pharmacologic stress nuclear imaging study Indications: Coronary artery disease Consent: Per the patient Procedure: The patient underwent pharmacologic (Regadenoson 0.4mg ) evaluation with a peak heart rate of 92 beats per minute (60%predicted maximal heart rate) and a peak blood pressure of 134/70 mmHg. The baseline ECG demonstrated sinus rhythm. The peak pharmacologic ECG demonstrated no ischemic changes. Transient AV block noted with administration of Lexiscan. There was no complaint of chest discomfort during pharmacologic infusion or recovery. The patient was injected with 11.8 millicuries of technetium 99m Cardiolite and subsequently rest SPECT Cardiolite nuclear imaging was obtained in the horizontal long, vertical long, and short axis views. The patient underwent pharmacologic (Regadenoson) evaluation. The patient was injected with 34.2 millicuries of technetium 99m Cardiolite and subsequently stress SPECT Cardiolite nuclear imaging was obtained in the horizontal long, vertical long, and short axis views. A gated Cardiolite study at peak stress was obtained. The examination was stopped secondary to completion of protocol. Rest and stress SPECT Cardiolite nuclear imaging status post realignment, normalization, and attenuation correction demonstrate small reversible perfusion defect of the basal lateral wall. There is end systolic thickening and brightening. The gated Cardiolite study demonstrates myocardial thickening and inward wall motion. The reported LVEF is 65%. Impression: 1. Pharmacologic (Regadenoson) evaluation 2. Peak pharmacologic ECG with no ischemic changes. 3. Transient AV block with administration of Lexiscan.. 5. Mild reversible perfusion defect of the lateral wall compatible with mild ischemia. 6. The gated Cardiolite study reports an LVEF of 65%. This note was generated with [employer] software. It may contain incorrect words, spelling, and punctuation that were not noted in checking the note before signing.
== END | disposition home or self-care (01) ==
PROVIDERS: PCP Nurse Practitioner Family; Referring Provider Nurse Practitioner Gerontology; Visit Provider Nurse Practitioner Gerontology
DX: I25.10 Atherosclerotic heart disease of native coronary artery without angina pectoris (principal); I42.9 Cardiomyopathy, unspecified
CPT/HCPCS: 78452; 93017; 93308; A9500; Q9957; A4216; C8924; J2785

== ENCOUNTER 2023-04-29 10:25 | Observation (INO) | payer MEDICARE, SELFPAY ==
--- NOTE | 2023-04-15 15:15 | PCM.HP.BLA ---
History and Physical Date of Admission: 04/29/23 This is a 67-year-old white female who presents today for a cardiac catheterization following an abnormal stress test. She has a history of CAD, PCI, CABG, ischemic mediated cardiomyopathy, cardiac dysrhythmia/torsade de pointes, peripheral artery disease, hyperlipidemia, and hypertension. She presented to [facility] ER on 02/04/23 for increased SOB. She was diagnosed with RSV on 02/03/2023. She was admitted with Sepsis, Acute respiratory failure, UTI. She was admitted to ICU on Bipap. She did have an elevated DDimer. CTA was negative for PE. She was also noted to have an elevated troponin, this trended 128/2716. He echocardiogram on 02/04/23 demonstrated an ejection fraction of 10-15%. From a cardiac standpoint, the patient is doing well. She denies any palpitations, chest pain, pressure or heaviness. She denies SOB, Orthopnea, and PND. She does not have bleeding issues; no blood in urine, stool or nosebleeds. She does acknowledge chronic fatigue. She denies myalgias, or claudication. She does not have edema, or sudden weight gain. She denies dizziness, lightheadedness, syncopal or near syncopal episodes, and headaches. Intake Vital Signs See EMR Allergies See EMR Medications See EMR [facility] Medical History Adrenal insufficiency Anxiety Aspiration pneumonia Atherosclerotic heart disease of [place] coronary artery without angina pectoris Cardiac arrest Cardiogenic shock Cardiomyopathy Carotid stenosis Carotid stenosis, left Chronic obstructive pulmonary disease (COPD) Coronary artery disease Debility Essential hypertension Healthcare associated bacterial pneumonia History of GI bleed History of myocardial infarction Hyperlipidemia Hypokalemia Hypotension Left shoulder pain NSTEMI (non-ST elevated myocardial infarction) PAD (peripheral artery disease) Peripheral vascular insufficiency Squamous cell carcinoma of left lung STEMI (ST elevation myocardial infarction) Tobacco abuse Tobacco use Torsades de pointes Ventricular tachycardia Surgical History Aortocoronary bypass status (~09/24/13) Hx of appendectomy Hx of tubal ligation Presence of stent in coronary artery (~02/10/20) Family History Mother Heart disease Hypertension CVA (cerebral vascular accident) Social History Smoking Status: Current every day smoker tobacco type: cigarettes quit status: considering quitting alcohol intake: never substance use type: does not use caffeine: Yes what type of physical activity do you participate in: none frequency: does not exercise ROS Const Const: Positive for fatigue (chronic); Negative for weakness, fever(s), headache(s), chills, frequent falls, weight gain or weight loss Eyes Eyes: Negative for blind spots, loss of peripheral vision, transient loss of vision, blurry vision, change in vision, double vision, floaters or tunnel vision ENT ENT: Negative for headache(s), dizziness, Nosebleed/epistaxis, balance problems or neck pain Cardio Chest Pain: No Palpitations: No Edema: None Muscle aches with walking: None Resp Respiratory: Negative for SOB with activity, SOB at rest or SOB orthopnea\SOB lying down GI GI: Negative nausea, vomiting, heartburn, bloating, vomiting blood/hematemesis, bright, red blood in stools or black,tarry stools Musc Musc: Negative for muscle aches/ myalgia, muscle weakness, joint pain or balance problems Neuro Neuro: Negative for dizziness, lightheadedness, near syncope, syncope, orthostatic symptoms, frequent falls, headache(s), weakness, blurry vision or double vision Tyrese Hematologic/Lymphatic: Negative for easy bleeding or easy bruising Endo Endo: Positive for fatigue (chronic) Cardiology Exam Const Appearance: cooperative, healthy appearing, comfortable, no acute distress, well developed and well groomed Nutritional Appearance: average body habitus Orientation: alert, awake and oriented x3 Head Head: normal to inspection, normocephalic and atraumatic Ears: hearing grossly normal bilaterally Nose: external nose normal and nares normal Face and Sinus: face symmetric Eyes Eyelids: eyelids normal Pupils: PERRL EOM: EOM intact bilaterally Neck Neck: normal visual inspection and full ROM Carotids: normal carotid upstroke carotid endarterectomy: Left Chest Chest inspection: normal inspection of the chest, symmetric chest movement and normal respiratory effort Auscultation: Bilateral: Diminished Lung Sounds Cardio Palpation: normal PMI Rate: regular rate Rhythm: regular rhythm Heart sounds: S1 normal and S2 normal; Negative murmur GI GI: normal to inspection and soft Neuro General: patient alert, patient awake, patient oriented x3 and moves all extremities Skin Skin: no rashes or lesions noted Extremities Pulses: Normal: Right Radial Pulse and Left Radial Pulse Lower Extremity Edema: None: Bilateral Psych Psychological: normal affect Supplemental Info Supplemental Information Stress Test 04/14/2023: Impression: 1. Pharmacologic (Regadenoson) evaluation 2. Peak pharmacologic ECG with no ischemic changes. 3. Transient AV block with administration of Lexiscan.. 5. Mild reversible perfusion defect of the lateral wall compatible with mild ischemia. 6. The gated Cardiolite study reports an LVEF of 65%. Echocardiogram 02/04/2023: Interpretation Summary The estimated ejection fraction is 10-15 %. Severe global left ventricular systolic dysfunction. Severe segmental systolic dysfunction (see wall motion). Mild (1+) mitral valve insufficiency. Mild to moderate (1-2+) tricuspid valve insufficiency. Mild diffuse aortic valve thickening. Compared to previous echo, the LV systolic function has worsened drastically. Cannot exclude mobile mass on posterior medial mitral valve papilary/chordea. Recommend EZ if clinically indicated. The study was technically difficult. Contrast injection was performed. Echocardiogram: 02-10-2020 Interpretation Summary The estimated ejection fraction is 40 %. Stage 1 diastolic dysfunction. Severe hypokinesis of the inferior wall and lateral wall. The study was technically difficult. Contrast injection was performed. Echocardiogram: 02/19/2021 Interpretation Summary The study was technically difficult. The estimated ejection fraction is 50 %. Mild segmental systolic dysfunction (see wall motion). Mild diffuse mitral valve thickening. Mild mitral valve prolapse. Mild (1+) mitral valve insufficiency. Mild tricuspid valve insufficiency. Mild diffuse aortic valve thickening. Mild (1+) pulmonic valve insufficiency. Right ventricular systolic pressure estimated to be 30 mmHg. No evidence for diastolic dysfunction. Stress test: 10-30-2013 EXERCISE TOLERANCE TEST: The patient exercised on a Wyatt protocol for 3 minutes completing stage 1 achieving a peak heart rate of 113 beats per minute (70% predicted maximum heart rate) with a peak blood pressure of 112/78 mmHg and a peak MET capacity of approximately 4 METS. The baseline ECG demonstrated normal sinus rhythm. The peak exercise ECG demonstrated no obvious ECG changes at the heart rate achieved. There were no obvious cardiac dysrhythmias pretest, during exercise, or recovery. The functional capacity was considered decreased. The patient had no complaint of chest discomfort during exercise or recovery. The examination was discontinued secondary to leg discomfort. IMPRESSION: 1. Technically inadequate (percent predicted maximum heart rate less than 85%) exercise tolerance test. 2. Peak exercise ECG with no obvious ECG changes at the heart rate achieved. 3. Decreased functional capacity. Stress Test Report Date: 02-23-2021 Procedure: Pharmacologic stress nuclear imaging study Indications: Chest pain; CAD; PCI; CABG Consent: Per the patient Procedure: The patient underwent pharmacologic (Regadenoson 0.4mg ) evaluation with a peak heart rate of 105 beats per minute (68%predicted maximal heart rate) and a peak blood pressure of 126/74 mmHg. The baseline ECG demonstrated normal sinus rhythm. The peak pharmacologic ECG demonstrated no obvious ECG changes. During infusion there was notation of transient 2-1 and 3-1 AV block with subsequent spontaneous return to sinus rhythm. There was no complaint of chest discomfort during pharmacologic infusion or recovery. The examination was discontinued secondary to completion of protocol. Impression: 1. Pharmacologic (Regadenoson) evaluation 2. Peak pharmacologic ECG with no obvious ECG changes. 3. During infusion there was notation of transient 2-1 and 3-1 AV block with subsequent spontaneous return to sinus rhythm. 4. Nuclear images pending Myocardial perfusion imaging study: Technique: The patient was injected with 11.3 millicuries of technetium 99m Cardiolite and subsequently rest SPECT Cardiolite nuclear imaging was obtained in the horizontal long, vertical long, and short axis views. The patient underwent pharmacologic (Regadenoson) evaluation with a peak heart rate of 105 beats per minute (68% percent predicted maximal heart rate) and a peak blood pressure of 126/74 mmHg. The patient was injected with 33.5 millicuries of technetium 99m Cardiolite and subsequently stress SPECT Cardiolite nuclear imaging was obtained in the horizontal long, vertical long, and short axis views. A gated Cardiolite study at peak stress was obtained. Interpretation: Rest and stress SPECT Cardiolite nuclear imaging status post realignment, normalization, and attenuation correction demonstrate relative uniform tracer uptake and myocardial perfusion appearing within normal limits. There is end systolic thickening and brightening. The gated Cardiolite study demonstrates myocardial thickening and inward wall motion. The reported LVEF is 59%. Impression: 1. rest and stress SPECT Cardiolite nuclear imaging demonstrate relative uniform tracer uptake and myocardial perfusion appearing within normal limits. 2. The gated Cardiolite study reports an LVEF of 59%. Comment: The cardiac dysrhythmia/conduction system findings during infusion appear to be compatible with the effects of the pharmacologic agent-Regadenoson/Lexiscan. Cardiac catheterization: 09-18-2013: [facility] Final impression: 1. Elevated left ventricular end-diastolic pressure compatible decreased diastolic compliance 2. Left ventricle: A. Mild hypokinesis of the anterior, anterior, basal inferior, mid inferior, and inferior apical segments B. Estimated LVEF 55% 3. Left main coronary: A. Large short vessel B. Angiographically normal 4. Left anterior descending coronary artery: A. Proximal stented segment with the appearance of 85% hazy proximal in-stent stenosis and 85% hazy distal in-stent stenosis B. Left to right collateral flow to the distal RCA system 5. Left circumflex coronary artery: A. Stented segment with the appearance of an in-stent subtotal occlusion 6. Right coronary artery: A. Large dominant vessel B. Proximal to distal stented segment with mid 100% occlusion C. A portion of the right PDA fills from left to right collateral flow 7. Mitral valve: A. Mild to moderate mitral valve regurgitation Cardiac catheterization: 02-10-2020 Left main coronary artery patent LAD: Apvghett-wz-pqwqg occlusion Diagonal branch: 1-in-stent occlusion LCx: Occluded [id number] RCA: Occluded qvqyaunuzl-mg-ymbwo KENNY to the LAD: Atretic SVG to OM1-acutely occluded with LUANNE I flow SVG to the RCA: Widely patent PCI: 11-06-2002: [facility] Stent assisted PTCA of the proximal LAD using a Cypher stent and facilitated by a cutting balloon PCI: 02-10-2020 Aspiration thrombectomy and synergy 3.0 x 18 mm stent to the SVG to the OM graft CAB09-24-2013: [facility] KENNY to the LAD as a free pedicle graft SVG to the OM SVG to the RCA Assessment and Plan Assessment and Plan (1) Atherosclerotic heart disease of mus[place]ee coronary artery without angina pectoris: Status: Chronic Qualifiers: [place] vs. transplanted heart: unspecified whether mus[place]og[place] or transplanted heart Qualified Code(s): I25.10 - Atherosclerotic heart disease of [place] coronary artery without angina pectoris Comment: CABG x 3- KENNY to LAD, SVG to OM, SVG to distal right 09/24/13; Stent assisted PTCA of prox LAD and cutting balloon 11/06/02; PTCA/Stent of the CX 09/18/13 Plan: Patient has a history of coronary artery disease with CABG x 3 in 2013, and stent placement. Her most recent stress test from 04/14/2023 was abnormal. Would like to proceed with a cardiac catheterization to further assess this. Depending on results, further recommendations will be made.
[2023-04-20 12:03] LABS: Absolute Lymphocyte Count 1.84 X10^3/uL (0.83-4.51); Basophil# 0.05 X10^3/uL; Basophil% 0.5 % (0-1); Hematocrit 43.8 % (37-47); Hemoglobin 13.9 g/dL (12.0-15.0); Lymphocyte # 1.84 X10^3/ul (0.83-4.51); Lymphocyte % 19.2 % (19-41); Mean Corp Hgb Conc 31.7 g/dL (32-36); Mean Corpuscular Hgb 28.6 pg (27.0-32.0); Mean Corpuscular Volume 90.1 fL (81-99); Mean Platelet Vol. 9.9 fl (6.2-12.0); Monocyte# 0.53 X10^3/uL; Monocyte% 5.5 % (0-10); NRBC Flagged by Analyzer 0 % (0-5); Neutrophil # 7.02 X10^3/uL (2.7-7.7); Neutrophil % 73.3 % (47-70); Platelet Count 277 K/mm3 (150-450); RBC Distribution Width SD 46.2 fl (35.1-43.9); Red Blood Count 4.86 M/mm3 (4.2-5.4); White Blood Count 9.6 K/mm3 (4.4-11.0)
[2023-04-20 13:18] LABS: Anion Gap 6 (5-15); BUN 13 mg/dL (7-18); BUN/Creat Ratio 13.3 RATIO (10-20); Calcium,Total 8.8 mg/dL (8.5-10.1); Chloride 109 mmol/L (98-107); Creatinine, Serum 0.98 mg/dL (0.55-1.02); EST Glomerular Filtration Rate 60 mL/min (>60); Est Glom Filt Rate - Afr Amer 73 mL/min (>60); Glucose 108 mg/dL (74-106); Potassium 3.9 mmol/L (3.5-5.1); Sodium Level 140 mmol/L (136-145)
[2023-04-28 13:59] VITALS: BMI 25.7
[2023-04-29] VITALS (15 sets, daily range): BP systolic 98–133; BP diastolic 6–73; PULSE 60–71; RESP 16; TEMP 36.6–36.7; O2SAT 92–99; BMI 23.1
--- NOTE | 2023-04-29 10:31 | DCINST_ITS ---
Discharge Instructions Diet Discharge Diet: Low fat / Low cholesterol Activity Discharge Activity: Return to Normal Activity May resume sexual activity in: No Restrictions Dressing / Incision Call your doctor if your incision/area has: Continuous Slow Oozing, Sudden Increased Bleeding, Increased Pain/ Swelling, Increased Redness, Foul Smelling Discharge and Swelling at the incision site Call your doctor if you observe: Fever of 101 or Higher, Coldness, Increased Pain and Numbness or Tingling Follow Up Care Please Follow Up With: Karime Roblero NP, JERRELL-C When: 2 weeks Test Results: Test results from this visit will be discussed in further detail at your follow- up appointment, if applicable. Discharge Plan Admission Attending Provider: Eunice Sharma Primary Care Provider: Nereyda Mcdonald Discharge Orders/Prescriptions Prescriptions: New aspirin 81 mg Tablet,Delayed Release (Dr/Ec) 81 mg PO DAILY@0800 Qty: 100 3RF Continued lorazepam [Ativan] 1 mg tablet 1.5 mg PO QHS escitalopram oxalate [Lexapro] 20 mg tablet 20 mg PO DAILY nitroglycerin 0.4 mg tablet, sublingual 0.4 mg sublingual Q5-15M PRN (Reason: chest pain) Qty: 25 6RF Rx Instructions: do not exceed 3 doses per episode hydrocortisone 10 mg tablet 20 mg PO .COMPLEX Hold Instructions: Hold while taking prednisone. Patient Comments: TAKE 2 TABLETS BY MOUTH at 7AM and ONE TABLET at 7PM Rx Instructions: 20 mg PO TAKE 2 TABLETS BY MOUTH at 7AM and ONE TABLET at 7PM; Entresto 24-26 mg Tablet 1 tab PO BID Qty: 60 2RF Rx Instructions: Hold for SBP less than 90 mmHg Jardiance 10 mg Tablet 10 mg PO DAILY Qty: 30 2RF Rx Instructions: Hold if patient gets vaginitis/moniliasis pantoprazole [Protonix] 40 mg tablet,delayed release (DR/EC) 40 mg PO DAILY Qty: 30 2RF Repatha SureClick 140 mg/mL pen injector 140 mg SC Q2W Qty: 2 11RF ticagrelor 90 mg tablet 90 mg PO BID Qty: 180 3RF metoprolol tartrate 25 mg tablet 25 mg PO BID Qty: 180 3RF Discontinued cilostazol 50 mg tablet 50 mg PO BID Referrals / Follow Up: Nereyda Mcdonald NP-C [Primary Care Provider] - Disposition Disposition (needs filled in before D/C Order can be placed): Home, Self Care
--- NOTE | 2023-04-29 11:05 | PHA.DC_ITS ---
Pharmacy [facility] has performed discharge medication reconciliation and counseling for this patient. The patient's discharge medication list was reviewed for discrepancies and discrepancies were resolved. The patient was counseled on the following discharge medications and changes in medications for homegoing were reviewed. The Reason for Use, instructions for use, and potential side effects were reviewed for all new medications. The patient's questions regarding all of their medications were answered. 1. Aspirin 81 mg PO daily The patient was able to verbally demonstrate an understanding of their discharge medications. Medications at Discharge Home Medications hydrocortisone 10 mg tablet 20 mg PO .COMPLEX adrenal insufficiency 02/04/21 evolocumab 140 mg/mL subcutaneous pen injector (Repatha SureClick) 140 mg subcut Q2W #2 mL 05/18/22 escitalopram oxalate 20 mg tablet (Lexapro) 20 mg PO DAILY 06/30/22 nitroglycerin 0.4 mg sublingual tablet 0.4 mg sublingual Q5-15M PRN chest pain #25 tabs 06/30/22 ticagrelor 90 mg tablet 90 mg PO BID blood thinner #180 tabs 08/16/22 empagliflozin 10 mg tablet (Jardiance) 10 mg PO DAILY #30 tabs 02/11/23 pantoprazole 40 mg tablet,delayed release (Protonix) 40 mg PO DAILY #30 tabs 02/11/23 sacubitril 24 mg-valsartan 26 mg tablet (Entresto) 1 tab PO BID #60 tabs 02/11/23 lorazepam 1 mg tablet (Ativan) 1.5 mg PO QHS 03/08/23 metoprolol tartrate 25 mg tablet 25 mg PO BID #180 tabs 04/19/23 aspirin 81 mg tablet,delayed release 81 mg PO DAILY@0800 #100 tabs 04/29/23
[2023-04-29] MEDS: 0.9% Normal Saline (1000mL) 1,000 ML 100 ML IV (11:35)
[2023-04-29] MEDS: Aspirin E.C. 81 MG Tablet PO (11:35)
--- NOTE | 2023-04-29 12:50 | CRPHASE1 ---
Patient Communication Patient Information Former Patient:: Phase I and Phase II PHII Cardiac Rehab Discussed with Patient:: Yes Guide to Cardiac Rehab Given to Patient:: Yes Cardiac Rehab Facility Choice List Given to Patient:: Yes Communication to Cardiac Rehab Choice Program [facility] CR PHII:: Communication Given to CR Outgoing Inspector:: Eunice Sharma Phase II Cardiac Rehab:: Yes Sessions:: 36 sessions - 3 days/wk, 12 weeks Cardiac Rehabilitation Info Program Information Cardiac Rehabilitation Program Information: Cardiac Rehab The cardiac rehab team at [facility] consists of highly skilled exercise physiologists, nurses, respiratory therapists and physicians working together with you. Our purpose is to help you have a full recovery and achieve the goals you set for yourself. Over the years many of our patients have returned to activities they assumed they would never do again! We can help restore your confidence and motivation to make lifestyle changes that can have a significant impact on your health and quality of life! We can help answer questions and concerns you may have about exercise, lifestyle, medications, diet, stress and anxiety which are common following a hospitalization. WE monitor ECG and vital signs during exercise and discuss your progress with you and report to your physician(s). Cardiac Rehab is proven to help reduce readmissions, improve functional capacity and lower recurrence of problems with your heart. Our Cardiac Rehab program is Certified by the [place] [employer]io-Vascular and Pulmonary Rehabilitation (AACVPR) and Accredited by the [place] [employer] through our [facility]. You can contact us at . We invite you to call us with your questions or to get started in our program. If you have other questions or concerns be sure to ask your physician/provider during your follow-up visit. WE look forward to seeing you!
--- NOTE | 2023-04-29 12:51 | CRPH1.INSTRU ---
General Education Discussed with Patient CAD and cardiac anatomy and function:: Patient communicates acknowledgment Explanation of diagnoses and procedures:: Patient communicates acknowledgment Sign/Symptoms of MS:: Patient communicates acknowledgment Antiplatelet therapy: Patient communicates acknowledgment Proper use of NTG-SL: Patient communicates acknowledgment Emergency procedures and activation of EMS: Patient communicates acknowledgment Compliance of all prescribed medications: Patient communicates acknowledgment Smoking Risk Factors Patient Nicotine/Smoking Risk Factors Are:: Cigarettes Recommendations Recommendations Include:: Smoking cessation strategies/Smoking packet Response Code Nicotine/Smoking Response Code:: Patient communicates acknowledgment Dyslipidemia Recommendations Recommendations Include:: Lipid profile not available Response Code Dyslipidemia Response Code:: Patient communicates acknowledgment Overweight/Obesity Risk Factors Patient Overweight/Obesity Risk Factors Are:: BMI Normal [24-29 & > 65 years old] Recommendations Recommendations Include:: Exercise 5-7 times/week Response Code Overweight/Obesity:: Patient communicates acknowledgment Hypertension Recommendations Recommendations Include:: Maintain BP <130/85 Response Code Hypertension:: Patient communicates acknowledgment Heart Disease Risk Factors Patient Heart Disease Risk Factors Are:: Previous cardiac event Recommendations Recommendations Include:: Educated family members of their risk Response Code Heart Disease Response Code:: Patient communicates acknowledgment Diabetes Recommendations Recommendations Include:: Maintain fasting blood sugars 70-110 md/dL Response Code Diabetes:: Patient communicates acknowledgment Metabolic Syndrome Recommendations Recommendations Include:: Does not meet criteria Sedentary Recommendations Recommendations Include:: Monitored Outpatient Cardiac Rehab Response Code Sedentary Response Code:: Patient communicates acknowledgment Stress Recommendations Recommendations Include:: Identification of stressors, and assessment of coping skills and Stress management techniques Response Code Stress Response Code:: Patient communicates acknowledgment
[2023-04-29] MEDS: Hydrocortisone 10 MG Tablet PO (18:36)
[2023-04-29] MEDS: LORazepam 0.5 MG Tablet 1.5 MG PO (21:41)
[2023-04-29] MEDS: Metoprolol Tartrate 25 MG Tablet PO (21:41)
[2023-04-29] MEDS: SACUBITRIL/VALSARTAN 24/26 MG TABLET 1 EACH PO (21:41)
[2023-04-29] MEDS: TICAGRELOR 90 MG TABLET PO (21:41)
[2023-04-30 02:47] VITALS: BP 133/77; PULSE 55; RESP 18; TEMP 36.6; O2SAT 95
[2023-04-30 05:11] LABS: Hematocrit 45.4 % (37-47); Mean Corp Hgb Conc 30.8 g/dL (32-36); Mean Corpuscular Hgb 27.8 pg (27.0-32.0); Mean Corpuscular Volume 90.3 fL (81-99); Mean Platelet Vol. 9.8 fl (6.2-12.0); Platelet Count 257 K/mm3 (150-450); RBC Distribution Width CV 14.1 % (11.6-14.6); RBC Distribution Width SD 46.8 fl (35.1-43.9); Red Blood Count 5.03 M/mm3 (4.2-5.4); White Blood Count 7.3 K/mm3 (4.4-11.0)
[2023-04-30 05:39] LABS: ALB/GLOB Ratio 0.8 RATIO (0.9-2.4); AST(SGOT) 19 U/L (15-37); Alanine Aminotransfer ALT/SGPT 21 U/L (13-56); Albumin, Serum 2.8 g/dL (3.2-5.0); Alkaline Phosphatase 60 U/L (45-117); Anion Gap 2 (5-15); BUN 14 mg/dL (7-18); Calcium,Total 8.6 mg/dL (8.5-10.1); Chloride 113 mmol/L (98-107); Creatinine, Serum 0.82 mg/dL (0.55-1.02); EST Glomerular Filtration Rate 73 mL/min (>60); Est Glom Filt Rate - Afr Amer 89 mL/min (>60); Estimated Creatinine Clearance 54.32 ml/min; Globulin 3.7 g/dL (2.2-4.2); Glucose 97 mg/dL (74-106); Potassium 4.2 mmol/L (3.5-5.1); Protein, Total 6.5 g/dL (6.4-8.2); Sodium Level 140 mmol/L (136-145)
[2023-04-30] MEDS: Hydrocortisone 10 MG Tablet 20 MG PO (06:11)
[2023-04-30 08:04] VITALS: BP 138/76; PULSE 80; RESP 18; TEMP 36.2; O2SAT 92
--- NOTE | 2023-04-30 10:00 | EKG12_ITS ---
Test Reason : AM EKG Blood Pressure : / mmHG Vent. Rate : 064 BPM Atrial Rate : 064 BPM P-R Int : 144 ms QRS Dur : 082 ms QT Int : 414 ms P-R-T Axes : 065 063 031 degrees QTc Int : 427 ms Normal sinus rhythm Normal ECG When compared with ECG of 29-APR-2023 10:40, MANUAL COMPARISON REQUIRED, DATA IS UNCONFIRMED Confirmed by NOAH BUSTILLOS, JASMEET ([id number]), photograph editor KENROY HICKS ([id number]) on 05/03/2023 6:55:59 AM Referred By: Eunice Sharma Confirmed By:JASMEET ZAMORA MD
[2023-04-30 16:03] LABS: ACT Activated Clotting Time 255 sec (74-137)
[2023-04-30 16:03] LABS: ACT Activated Clotting Time 293 sec (74-137)
--- NOTE | 2023-05-03 14:26 | CL.I_ITS ---
Patient Name: ANDIE SCOTT Study Date: 04/29/2023 Performing: Eunice Sharma MD Ht: 62 inches 157 cm : 1955 Wt: 140.2 lbs 63.5 kg Age: 67 Gender: female BSA: 1.64 PROCEDURE(S) PERFORMED IC14-([id number])GRAFT-ELIE AND/OR PTCA, SINGLE GRAFT [id number]-([id number])LHC/COR/LV/CABG CLINICAL PROFILE AND CO-MORBIDITIES Indications: Stable Known CAD Heart Failure: None Stress/Imaging Stress Test w/SPECT MPI: Yes Result: Positive Intermediate Risk Stress Test with SPECT MPI: Positive Intermediate Risk CONCLUSIONS 100% Prox LAD; Free KENNY graft to LAD patent 100% Mid LCX; Previous stent to SVG to OM patent, 80% distal SVG to OM/[place] OM RCA RISK COMPLIANCE MANAGER known from before; SVG to RCA 100% LVEF 60% LVEDP 30 mm Hg Successful ELIE distal SVG to OM into [place] OM using Marika [place] 2.5x12 mm, optimized proximally using 3.5 mm balloon RECOMMENDATIONS ASA Indefinitley Brilinta for at least 12 months DESCRIPTION OF PROCEDURE The patient arrived to the procedure lab. The risks and benefits of the procedure as well as a full description of our services here and lack of surgical backup were fully explained to the patient and/or their significant other prior to the catheterization. The Timeout was completed, verifying the correct patient and procedure. The patient's procedural site was prepped and draped in the usual fashion. Local anesthetic was given subcutaneously to right radial region with Lidocaine 2%. Using a modified Seldinger technique, arterial access was obtained via the right radial artery, a 6Fr sheath was inserted.. Left Coronary Artery selective angiography was performed in multiple views using a 5 Fr. 4.0 [place] catheter. Saphenous Vein graft to the OM 1 selective angiography was performed in multiple views using a 5 Fr. 4.0 [place] catheter. Saphenous Vein graft to the unknown artery (occluded graft) selective angiography was performed in single view using a 5 Fr. 4.0 [place] catheter. Free Left internal mammary artery graft to the LAD selective angiography was performed in multiple views using a 5 Fr. 4.0 [place] catheter. Left Ventriculography was performed in FERREIRA projection using a 5 Fr. Pigtail catheter. LV to AO pullback pressures were then recordedThe images were reviewed and options discussed. A decision was then made to proceed with an Intervention, IVUS or other adjunct procedure. LCB Guide catheter was inserted and engaged into the SVG to the OM 1. Runthrough Guide wire was advanced to the SVG to 1st OM. 2.5 x 12 Marika [place] Drug Eluting stent was inserted. Drug Eluting stent was advanced across the lesion in the SVG to first obtuse marginal, distal anastomosis Angiogram performed post stent deployment. 3.5 x 6 NC Euphora Balloon catheter was inserted post stent. Runthrough (2) Guide wire was advanced to the SVG to 1st OM. 2 x 8 Emerge Balloon catheter was inserted. 2.5 x 8 NC Euphora Balloon catheter was inserted post stent. Angiogram performed post balloon dilatation. The arterial sheath was pulled and a TR Band was applied for hemostasis. 15cc air CORONARY ANGIOGRAPHY DOMINANCE: Right Dominant LEFT HEART ASSESSMENT Left Ventricular Ejection Fraction: by LV Gram 60 % Elevated Left Ventricular End Diastolic Pressure LEFT MAIN: Angiographically normal LEFT ANTERIOR DESCENDING ARTERY: LAD: Tubular 100% Proximal lesion in LAD OM 1: Tubular 80% Mid lesion in MARG1 OM 2: Tubular 80% Mid lesion in MARG1 RIGHT CORONARY ARTERY: RCA: Tubular 100% Proximal lesion in RCA GRAFTS: SVG Graft to RT PDA Tubular 100% lesion in SVG Graft to RT PDA SVG Graft to LAD KENNY Graft to MARG1 Tubular 80% lesion in KENNY Graft to MARG1 COLLATERAL FLOW: Collateral flow from LAD to Acute Marginal Collateral flow from LAD Septal to RT PDA VALVE FINDINGS: Mitral Valve Insufficiency - Grade 2 INTERVENTION INFORMATION LESION SITE: Vein > to 1st OM Segment Number: 20-First obtuse marginal branch segment - 1st OM , Lesion Location: Distal Lesion Complexity: High/C, lesion length: 10 mm Pre Stenosis: 80 % Pre intervention LUANNE flow: 3 PROCEDURE: Drug Eluting Stent with post dilatation Post Stenosis: 0 % Post intervention LUANNE flow: 3 Lesion Devices: Cordis 6 Fr LCB 100cm Guide Catheter Terumo .014 180cm Runthrough Extra Floppy straight Medtronic 2.50 x 12 MARIKA FRONTIER ELIE Terumo .014 180cm Runthrough Extra Floppy straight Medtronic NC EUPHORA RX 3.5x06 BALLOON Medtronic NC EUPHORA RX 2.5x08 BALLOON Ariel Sci EMERGE MR 2.00x08 BALLOON COMPLICATIONS No Complications PROCEDURE MEDICATIONS Fentanyl 50 mcg IV Versed 1 mg IV Versed 1 mg IV Versed 1 mg IV Oxygen: 2 L/min via nasal cannula Aspirin (325mg) 1 Tabs PO @ 04/29/2023 07:40:30 Heparin given IA 04/29/2023 08:54:59 Heparin 2000 unit(s) IV 04/29/2023 09:13:53 Heparin 2000 unit(s) IV 04/29/2023 09:28:13 Nitro 100 mcg IC 04/29/2023 09:29:36 Verapamil 2.5mg, Ntg 200mcgs, 2000 units of Heparin given IA 04/29/2023 08:54:59 IV Fluids: .9 NaCl increased to 100 ml/hr 04/29/2023 09:06:15 SUMMARY OF HEMODYNAMIC DATA Time AIR REST ECG 07:36:16 AO 116/68 (86) SA 09:07:25 LV 125/11, 24 09:17:29 LV 133/11, 37 09:17:38 LV 122/23, 31 09:18:50 LVp 116/23, 30 09:18:55 AOp 125/-79 (79) 09:19:02 Signed By Euniec Sharma MD On 04/29/2023 10:23:38 Eunice Sharma MD
== END 2023-04-30 09:02 | disposition home or self-care (01) ==
LOC: PCU 10:31
PROVIDERS: Nurse Practitioner Gerontology; Admitting Provider Internal Medicine Cardiovascular Disease; PCP Nurse Practitioner Family; Referring Provider Internal Medicine Cardiovascular Disease; Visit Provider Internal Medicine Cardiovascular Disease
DX: I25.10 Atherosclerotic heart disease of native coronary artery without angina pectoris (principal); J44.9 Chronic obstructive pulmonary disease, unspecified; I42.9 Cardiomyopathy, unspecified; I73.9 Peripheral vascular disease, unspecified; R94.39 Abnormal result of other cardiovascular function study; I44.30 Unspecified atrioventricular block; Z95.5 Presence of coronary angioplasty implant and graft; E78.5 Hyperlipidemia, unspecified; I10 Essential (primary) hypertension; I49.9 Cardiac arrhythmia, unspecified; F17.210 Nicotine dependence, cigarettes, uncomplicated; Z95.1 Presence of aortocoronary bypass graft
CPT/HCPCS: 36415; 80048; 80053; 85025; 85027; 85347; 92937; 93005; 93459; 96360; 96361; 97802; 99152; 99153; 99221; C1725; C1887; J7030; J7040; Q9967; C1769; C1874; C1894; C9604; G0378

== ENCOUNTER → 2023-05-19 | Outpatient (CLI) | payer MEDICARE, SELFPAY ==
--- NOTE | 2023-05-19 12:00 | RAD_ITS ---
INDICATION: GUERRA EXAMINATION/TECHNIQUE: X-RAY - XR Chest 2 Views COMPARISON: Prior study dated: 02/04/2023 FINDINGS: LINES/DEVICES: None. LUNGS: No consolidation, edema or effusion. No pneumothorax. MEDIASTINUM AND CARDIOVASCULAR STRUCTURES: Normal cardiac silhouette. Status post median sternotomy. Coronary calcifications. BONES AND SOFT TISSUES: Minimal dextroscoliosis. RAD/Chest PA and Lateral IMPRESSION: No radiographic evidence of acute cardiopulmonary disease. Electronically Signed: Vishal Thomason MD at 10:36 EDT ,
[2023-05-19 13:07] LABS: Absolute Lymphocyte Count 2.04 X10^3/uL (0.83-4.51); Absolute Neutrophil Count 8.3 X10^3/uL (2.0-7.7); Basophil# 0.09 X10^3/uL; Basophil% 0.8 % (0-1); Eosinophil# 0.17 X10^3/uL; Eosinophils% 1.5 % (0-5); Hematocrit 49.2 % (37-47); Hemoglobin 15.1 g/dL (12.0-15.0); Lymphocyte # 2.04 X10^3/ul (0.83-4.51); Lymphocyte % 17.8 % (19-41); Mean Corp Hgb Conc 30.7 g/dL (32-36); Mean Corpuscular Hgb 27.6 pg (27.0-32.0); Mean Corpuscular Volume 89.9 fL (81-99); Mean Platelet Vol. 10.2 fl (6.2-12.0); Monocyte# 0.79 X10^3/uL; Monocyte% 6.9 % (0-10); NRBC Flagged by Analyzer 0 % (0-5); Neutrophil % 72.6 % (47-70); Platelet Count 279 K/mm3 (150-450); RBC Distribution Width CV 14.4 % (11.6-14.6); RBC Distribution Width SD 47.7 fl (35.1-43.9); Red Blood Count 5.47 M/mm3 (4.2-5.4); White Blood Count 11.4 K/mm3 (4.4-11.0)
[2023-05-19 13:24] LABS: BNP,B-Type NATRIURETIC PEPTIDE 98.3 pg/mL (0-100)
[2023-05-19 13:33] LABS: Anion Gap 5 (5-15); BUN 16 mg/dL (7-18); BUN/Creat Ratio 18.4 RATIO (10-20); Calcium,Total 9.4 mg/dL (8.5-10.1); Chloride 109 mmol/L (98-107); Creatinine, Serum 0.87 mg/dL (0.55-1.02); EST Glomerular Filtration Rate 69 mL/min (>60); Est Glom Filt Rate - Afr Amer 83 mL/min (>60); Glucose 99 mg/dL (74-106); Potassium 4.1 mmol/L (3.5-5.1); Sodium Level 136 mmol/L (136-145)
== END | disposition home or self-care (01) ==
LOC: RAD 12:02
PROVIDERS: PCP Nurse Practitioner Family; Referring Provider Nurse Practitioner Gerontology; Visit Provider Nurse Practitioner Gerontology
DX: R06.09 Other forms of dyspnea (principal)
CPT/HCPCS: 36415; 71046; 80048; 83880; 85025; 85379

== ENCOUNTER → 2023-06-06 | Outpatient (CLI) | payer MEDICARE, SELFPAY ==
--- NOTE | 2023-06-06 12:48 | CT_ITS ---
STUDY: CTA CHEST REASON FOR EXAM: Female, 67 years old. Elevated d-dimer. Stage IV lung carcinoma with metastasis. RADIATION DOSAGE (If Supplied By Facility): CTDIvol = ( 3.02 ) mGy, DLP = ( 98.55 ) mGycm TECHNIQUE: The examination was performed with the intravenous administration of IV 100mL Isovue-370. Post-processing of the angiographic images was performed, with multiplanar reformation and 3D reconstruction. Individualized dose optimization techniques were used for this CT. COMPARISON: Comparison is made with prior study dated February 04, 2023. FINDINGS: Normal enhancement of the main pulmonary artery and right and left pulmonary arteries. Normal enhancement of the bilateral peripheral pulmonary arteries. There is no demonstrated pulmonary embolism. Normal thoracic aorta and visualized great vessels. There is no demonstrated aortic dissection. Sternal cerclage wires and vascular clips are present from a prior sternotomy and coronary artery bypass graft procedure (CABG). There are calcifications of the coronary arteries. Normal mediastinum. Normal hilar regions. Normal visualized trachea and bronchi. The lungs are well expanded. Stable 4.7 mm x 4.4 mm spicular nodule in the posterior aspect of the left upper lobe. Stable emphysematous changes more prominent in the upper lobes with evidence of centrilobular emphysema. Stable mild degree of bronchiectasis with tree-in-bud nodular opacities in the left upper lobe.. Normal pleura. Normal chest wall structures. There are mild degenerative changes of thoracic spine. Normal visualized upper abdomen. CT/CTA Chest W/WO Contrast IMPRESSION: Stable examination. No evidence of pulmonary embolism. Electronically Signed: Philippe Herrera MD at 13:37 EDT ,
== END | disposition home or self-care (01) ==
LOC: CT 12:48
PROVIDERS: PCP Nurse Practitioner Family; Referring Provider Nurse Practitioner Gerontology; Visit Provider Nurse Practitioner Gerontology
DX: R06.09 Other forms of dyspnea (principal); I25.10 Atherosclerotic heart disease of native coronary artery without angina pectoris; R79.89 Other specified abnormal findings of blood chemistry
CPT/HCPCS: 71275; Q9967

== ENCOUNTER → 2023-06-07 | Outpatient (CLI) | payer MEDICARE, SELFPAY | END | disposition home or self-care (01) | LOC: BFHLAB 15:14 | PROVIDERS: PCP Nurse Practitioner Family; Visit Provider Nurse Practitioner Family | DX: N39.0 Urinary tract infection, site not specified (principal) | CPT/HCPCS: 87086; 87088; 87186 ==

== ENCOUNTER 2023-07-29 07:56 | Emergency (ER) | payer MEDICARE, SELFPAY ==
[2023-07-29 07:57] VITALS: BP 123/91; PULSE 91; RESP 18; TEMP 37.4; O2SAT 97
--- NOTE | 2023-07-29 08:00 | ED.RN ---
PT YELLING AT FAMILY MEMBER WHILE SITTING IN W/C AT PROGRAM OR PROJECT ADMINISTRATOR, PT LOUD AND RUDE WITH THIS RN WHEN QUESTIONS WHERE BEING ASKED.
--- NOTE | 2023-07-29 08:44 | EDS_ITS ---
HPI HPI - GI History of Present Illness Chief Complaint: Abd Pain Informant: patient Narrative Narrative: 67-year-old female presented to the emergency room with vomiting diarrhea and abdominal cramps. Patient states that on Tuesday evening she stopped and had a burrito at [facility]. During the night on Tuesday she developed vomiting and diarrhea which has persisted until today. She states that her cramps are in her abdomen and her back. Patient states that the diarrhea is yellow water. She denies any blood in the stool or emesis. Subjective fever yesterday. Patient states she feels dehydrated. No rashes. [facility] Medical History Carotid stenosis Essential hypertension PAD (peripheral artery disease) Carotid stenosis, left Cardiomyopathy Hypokalemia Coronary artery disease Adrenal insufficiency Anxiety Aspiration pneumonia Healthcare associated bacterial pneumonia Debility Cardiogenic shock NSTEMI (non-ST elevated myocardial infarction) Tobacco use Chronic obstructive pulmonary disease (COPD) Ventricular tachycardia Torsades de pointes Cardiac arrest STEMI (ST elevation myocardial infarction) History of GI bleed Peripheral vascular insufficiency History of myocardial infarction Atherosclerotic heart disease of [place] coronary artery without angina pectoris Tobacco abuse Hypotension Left shoulder pain Squamous cell carcinoma of left lung Hyperlipidemia Home Medications ?Medication ?Instructions ?Recorded ?Last Taken ?Type hydrocortisone 10 mg tablet 20 mg PO .COMPLEX adrenal 02/04/21 04/29/23 History insufficiency escitalopram oxalate 20 mg tablet 20 mg PO DAILY mental health 06/30/22 04/29/23 History (Lexapro) nitroglycerin 0.4 mg sublingual 0.4 mg sublingual Q5-15M PRN chest 06/30/22 Unknown Rx tablet pain #25 tabs lorazepam 1 mg tablet (Ativan) 1.5 mg PO QHS anxiety 03/08/23 Unknown History aspirin 81 mg tablet,delayed 81 mg PO DAILY@0800 #100 tabs 04/29/23 Unknown Rx release empagliflozin 10 mg tablet 10 mg PO DAILY diabetes #30 tabs 05/02/23 Unknown Rx (Jardiance) evolocumab 140 mg/mL subcutaneous 140 mg subcut Q2W cholesterol #2 mL 05/02/23 Unknown Rx pen injector (Repatha SureClick) sacubitril 24 mg-valsartan 26 mg 1 tab PO BID heart #180 tabs 05/06/23 Unknown Rx tablet (Entresto) ticagrelor 90 mg tablet 90 mg PO BID blood thinner #180 05/19/23 Unknown Rx tabs pantoprazole 40 mg tablet,delayed 40 mg PO DAILY reflux #30 tabs 06/23/23 Unknown Rx release (Protonix) metoprolol tartrate 25 mg tablet 25 mg PO BID blood pressure #180 07/18/23 Unknown Rx tabs Allergy/AdvReac Type Severity Reaction Status Date / Time acetaminophen (From Vicodin) Allergy Intermediate Itching Verified 07/29/23 07:57 atorvastatin AdvReac Severe Myalgias Verified 07/29/23 07:57 hydrocodone AdvReac Itching Verified 07/29/23 07:57 hydrocodone bitartrate (From AdvReac Itching Verified 07/29/23 07:57 Vicodin) oxycodone HCl (From Percocet) AdvReac Itching Verified 07/29/23 07:57 Family History Mother Heart disease Hypertension CVA (cerebral vascular accident) Surgical History Hx of tubal ligation Hx of appendectomy Presence of stent in coronary artery (~04/29/23) Aortocoronary bypass status (~09/24/13) Social History Smoking Status: Current every day smoker tobacco type: cigarettes quit status: considering quitting alcohol intake: never substance use type: does not use caffeine: Yes what type of physical activity do you participate in: none frequency: does not exercise ROS ROS ED Constitutional Constitutional ED: Reports chills, fever(s), subjective and sweats; Denies weight loss Eyes Eyes: Denies change in vision or diplopia ENT ENT ED: Denies ear pain, rhinorrhea or sore throat Cardiovascular Cardiovascular: Denies chest pain, orthopnea, palpitations or racing heartbeat Respiratory/Chest Respiratory/Chest: Denies cough, dyspnea or orthopnea Gastrointestinal Gastrointestinal: Reports abdominal pain, diarrhea, nausea and vomiting; Denies melena Genitourinary Genitourinary ED: Denies dysuria, hematuria or urinary frequency Musculoskeletal Musculoskeletal: Reports back pain; Denies arthralgias or myalgias Integumentary Denies abscess or rash Neurologic Neurologic: Denies headache(s) or weakness Psychiatric Psychiatric: Denies anxiety, depression, suicidal ideation or suicidal thoughts Endocrine Endocrinology: Denies polydipsia, polyphagia or polyuria Allergic/Immunologic Allergic/Immunologic ED: Denies mouth swelling, tongue swelling or urticaria EXAM Physical Exam Narrative Exam Narrative: Patient is lying in the left recumbent position. She is hyperventilating. Const Vital Signs: 07/29/23 07:57 07/29/23 09:57 Temperature 99.3 F H Temperature Source Temporal Pulse Rate 91 90 Respiratory Rate 18 16 Blood Pressure 123/91 H 121/79 H Blood Pressure Mean 101 93 Pulse Ox 97 97 Oxygen Delivery Method Room Air Room Air Positive well nourished and well developed General Appearance ED: well developed HEENT Reports normocephalic, head/scalp atraumatic and dry mucous membranes Mouth ED: Yes dry mucous membranes Mouth: dry mucous membranes Eyes PERRL and EOMs intact bilaterally Neck no lymphadenopathy, supple and no JVD Resp normal respiratory effort and clear to auscultation bilaterally Cardio regular rate, regular rhythm and no murmurs Cardio Narrative: Capillary refill 3 seconds GI Inspection: Negative for abdominal distention Auscultation: normoactive bowel sounds Palpation: soft and tender other (Diffusely tender to palpation); Negative for rebound tenderness present Back/Spine no CVA tenderness and normal ROM Extremity normal to inspection General Extremety ED: Negative for edema General Extremity: Negative for edema Neuro oriented x3 and CN's II-XII intact bilaterally Sensorium / Orientation: alert Motor Exam: strength 5/5 throughout Psych Attitude: agitated Mood & Affect: Negative for depressed or tearful Skin no rashes or lesions noted and no wounds MDM MDM MDM Narrative Medical decision making narrative: Differential diagnosis includes gastroenteritis both viral bacterial unspecified dehydration and electrolyte abnormality kidney injury anemia sepsis colitis diverticulitis volvulus bowel obstruction perforated viscus pancreatitis IV established patient received IV fluids as well as Benadryl and Reglan. She has a history of torsades. White count 11.3 with a hemoglobin 16.5 platelet count is 232. CO2 of 19 creatinine 1.4 normal liver enzymes glucose of 110 lipase of 36. Stool cultures were ordered. Patient was in the emergency department for approximately 3 hours and have not yet had a specimen. I did tell her we would need her to go to the bathroom and provide as well. Apparently nursing came in for me that the patient became upset that she had been here for 3 hours and left. History & Record Review Discussion w/independent historian: Patient Additional record(s) reviewed:: Prior inpatient record, Prior ED visit and Prior labs Lab Data Attestation: I reviewed the patient's lab results. Labs: Laboratory Results - last 24 hr 07/29/23 07/29/23 08:20 09:54 WBC 11.3 H RBC 5.95 H Hgb 16.5 H Hct 51.3 H MCV 86.2 MCH 27.7 MCHC 32.2 RDW Std Deviation 51.0 H RDW Coeff of Nehemiah 16.6 H Plt Count 232 MPV 10.3 Immature Gran % (Auto) 0.600 Neut % (Auto) 71.9 H Lymph % (Auto) 20.5 Centre % (Auto) 5.2 Eos % (Auto) 1.4 Baso % (Auto) 0.4 Absolute Neuts (auto) 8.1 H Absolute Lymphs (auto) 2.32 Nucleated RBC % 0 Sodium Cancelled 136 Potassium Cancelled 3.6 Chloride Cancelled 107 Carbon Dioxide Cancelled 19.0 L Anion Gap Cancelled 10 BUN Cancelled 15 Creatinine Cancelled 1.40 H Estim Creat Clear Calc Cancelled 34.00 Est GFR (MDRD) Af Amer Cancelled 48 L Est GFR (MDRD) Non-Af Cancelled 40 L BUN/Creatinine Ratio Cancelled 10.7 Glucose Cancelled 110 H Calcium Cancelled 8.2 L Total Bilirubin Cancelled 0.40 Direct Bilirubin Cancelled 0.09 AST Cancelled 23 ALT Cancelled 26 Alkaline Phosphatase Cancelled 72 Total Protein Cancelled 6.9 Albumin Cancelled 2.8 L Globulin Cancelled 4.1 Lipase Cancelled 36 Discharge Plan Triage Chief Complaint: Abd Pain ED Provider: Shaun Hendricks Dx/Rx/DC Orders Prescriptions: No Action lorazepam [Ativan] 1 mg tablet 1.5 mg PO QHS escitalopram oxalate [Lexapro] 20 mg tablet 20 mg PO DAILY nitroglycerin 0.4 mg tablet, sublingual 0.4 mg sublingual Q5-15M PRN (Reason: chest pain) Qty: 25 6RF Rx Instructions: do not exceed 3 doses per episode ticagrelor 90 mg tablet 90 mg PO BID Qty: 180 3RF hydrocortisone 10 mg tablet 20 mg PO .COMPLEX Patient Comments: TAKE 2 TABLETS BY MOUTH at 7AM and ONE TABLET at 7PM Rx Instructions: 20 mg PO TAKE 2 TABLETS BY MOUTH at 7AM and ONE TABLET at 7PM; aspirin 81 mg Tablet,Delayed Release (Dr/Ec) 81 mg PO DAILY@0800 Qty: 100 3RF Repatha SureClick 140 mg/mL pen injector 140 mg SC Q2W Qty: 2 11RF Jardiance 10 mg tablet 10 mg PO DAILY Qty: 30 11RF Rx Instructions: Hold if patient gets vaginitis/moniliasis Entresto 24-26 mg tablet 1 tab PO BID Qty: 180 3RF Rx Instructions: Hold for SBP less than 90 mmHg pantoprazole [Protonix] 40 mg tablet,delayed release (DR/EC) 40 mg PO DAILY Qty: 30 2RF metoprolol tartrate 25 mg tablet 25 mg PO BID Qty: 180 3RF Primary Care Provider: Nereyda Mcdonald Referrals: Nereyda Mcdonald, COUNTY PROGRAM TECHNICIAN-C [Primary Care Provider] - Print Language: Croatian
[2023-07-29 08:48] LABS: Absolute Lymphocyte Count 2.32 X10^3/uL (0.83-4.51); Absolute Neutrophil Count 8.1 X10^3/uL (2.0-7.7); Basophil# 0.05 X10^3/uL; Basophil% 0.4 % (0-1); Eosinophil# 0.16 X10^3/uL; Eosinophils% 1.4 % (0-5); Hematocrit 51.3 % (37-47); Hemoglobin 16.5 g/dL (12.0-15.0); Lymphocyte # 2.32 X10^3/ul (0.83-4.51); Lymphocyte % 20.5 % (19-41); Mean Corp Hgb Conc 32.2 g/dL (32-36); Mean Corpuscular Hgb 27.7 pg (27.0-32.0); Mean Corpuscular Volume 86.2 fL (81-99); Mean Platelet Vol. 10.3 fl (6.2-12.0); Monocyte# 0.59 X10^3/uL; Monocyte% 5.2 % (0-10); NRBC Flagged by Analyzer 0 % (0-5); Neutrophil % 71.9 % (47-70); POSITIVE MORPHOLOGY YES; Platelet Count 232 K/mm3 (150-450); RBC Distribution Width CV 16.6 % (11.6-14.6); Red Blood Count 5.95 M/mm3 (4.2-5.4); White Blood Count 11.3 K/mm3 (4.4-11.0)
[2023-07-29 08:49] LABS: Differential Indicated SCAN CRITERIA MET
[2023-07-29] MEDS: DiphenhydrAMINE 50 MG/ML Syringe IV (08:54)
[2023-07-29] MEDS: 0.9% Normal Saline (1000mL) 1,000 ML 999 ML IV (08:54)
[2023-07-29] MEDS: Metoclopramide 10 MG/2 ML Vial 5 MG IV (08:54)
[2023-07-29 08:57] VITALS: BMI 20.5
--- NOTE | 2023-07-29 09:08 | NURSING ---
NEED A NEW GREEN TOP, PER LAB.
--- NOTE | 2023-07-29 09:54 | ED.RN ---
danielle and sent pt labs at this time due to specimen hemolyzed
[2023-07-29 09:57] VITALS: BP 121/79; PULSE 90; RESP 16; O2SAT 97
[2023-07-29 10:17] LABS: AST(SGOT) 23 U/L (15-37); Alanine Aminotransfer ALT/SGPT 26 U/L (13-56); Albumin, Serum 2.8 g/dL (3.2-5.0); Alkaline Phosphatase 72 U/L (45-117); Anion Gap 10 (5-15); BUN 15 mg/dL (7-18); BUN/Creat Ratio 10.7 RATIO (10-20); Bilirubin, Direct 0.09 mg/dL (0.00-0.30); Calcium,Total 8.2 mg/dL (8.5-10.1); Chloride 107 mmol/L (98-107); EST Glomerular Filtration Rate 40 mL/min (>60); Est Glom Filt Rate - Afr Amer 48 mL/min (>60); Globulin 4.1 g/dL (2.2-4.2); Glucose 110 mg/dL (74-106); Lipase 36 U/L (13-75); Potassium 3.6 mmol/L (3.5-5.1); Protein, Total 6.9 g/dL (6.4-8.2); Sodium Level 136 mmol/L (136-145)
--- NOTE | 2023-07-29 10:30 | ED.RN ---
0845 blood work sent down after iv started.
--- NOTE | 2023-07-29 10:31 | ED.RN ---
called labs d/t showing not received by lab. lab is investigating and to come draw if needed.
--- NOTE | 2023-07-29 11:41 | ED.RN ---
I have been waiting for 3 hours and no one has told me anything RN explained that a stool sample is needed, pt stated she did not know this. Family member told this RN You got a lot of beds for being busy. IV removed prior to pt leaving department.
== END 2023-07-29 11:43 | disposition left against medical advice (07) ==
PROVIDERS: Emergency Provider Emergency Medicine; PCP Nurse Practitioner Family; Visit Provider Emergency Medicine
DX: R10.9 Unspecified abdominal pain (principal); J44.9 Chronic obstructive pulmonary disease, unspecified; F17.210 Nicotine dependence, cigarettes, uncomplicated; Z98.51 Tubal ligation status; Z90.49 Acquired absence of other specified parts of digestive tract; Z95.5 Presence of coronary angioplasty implant and graft; I10 Essential (primary) hypertension; I25.10 Atherosclerotic heart disease of native coronary artery without angina pectoris; I25.2 Old myocardial infarction; E78.5 Hyperlipidemia, unspecified; Z79.899 Other long term (current) drug therapy; F41.9 Anxiety disorder, unspecified; Z79.82 Long term (current) use of aspirin; R11.10 Vomiting, unspecified; R19.7 Diarrhea, unspecified
CPT/HCPCS: 80048; 80076; 83690; 85025; 96361; 96374; 96375; 99283; J7030; A4216

== ENCOUNTER → 2024-03-12 | Outpatient (CLI) | payer MEDICARE, SELFPAY ==
--- NOTE | 2024-03-12 11:54 | CYSPIN_PTH ---
PATIENT: ANDIE SCOTT LOC: [facility] U#:[id number] AGE/SX: 68/F ROOM: RE03/12/[address]: HERSON Matthews : 1955 BED: DIS: 03/12/2024 SPEC #: [id number] RECD: 03/13/24 08:03 STATUS: JULIANN ZAHEER #: [id number] KIANA: 03/12/24 11:[address]: Nereyda Mcdonald DEPT: CYTOLOGY RECD BY: Sarah Workman Tissues: Urine Procedures: Pap Stain (control) Special Stain Group II Cytospin Fluid HEADER OPERATION: Not noted PRE-OP DIAGNOSIS: Hematuria TISSUE SUBMITTED: Urine for cytology DIAGNOSIS CYTOLOGY Urine for cytology (cytospins): Negative for high grade urothelial carcinoma (NHGUC), Nieves System Category II. Acute inflammation. See comment. 03/13/2024 COMMENT Numerous organisms consistent with bacteria are also noted. The specimen predominantly consists of squamous epithelial cells. A few red blood cells are also noted. The Nieves System for urine cytology diagnostic categorization was used in the evaluation of this case. CYTOLOGY STUDY Slides are reviewed. CYTOLOGY GROSS Received is 25 ml of yellow cloudy fluid labeled with the patient's name and and designated per the requisition as urine. Submitted for cytology preparation. Mr 03/13/2024 TC:2 CPT: 62043
[2024-03-14 11:45] LABS: Cytology, Body Fluid / CSF SEE PATHOLOGY REPORT
== END | disposition home or self-care (01) ==
PROVIDERS: PCP Nurse Practitioner Family; Visit Provider Nurse Practitioner Family
DX: R31.9 Hematuria, unspecified (principal)
CPT/HCPCS: 87077; 87086; 87088; 87186; 88108; 88313

== ENCOUNTER 2024-09-30 09:54 | Emergency (ER) | payer MEDICARE, SELFPAY ==
[2024-09-30 09:54] VITALS: BP 119/61; PULSE 77; RESP 18; TEMP 36.2; O2SAT 99; BMI 18.3
--- NOTE | 2024-09-30 10:01 | EDS_ITS ---
HPI History of Present Illness HPI Narrative: Patient presents with right ankle injury that occurred last night. Patient states that she got up to go dancing and twisted her right ankle. Patient fell to the floor at the time. Patient denies any head injury or loss of consciousness. Patient states the pain and swelling is worse today. Patient describes it as stabbing, burning, aching, and throbbing. Patient states her pain is worse with walking. Patient states it is better with rest. Patient denies any paresthesias or weakness. Patient denies any other injuries. Chief Complaint: Lower Extremity Injury Occured/Mechanism Mechanism/Context: Yes fall Onset/Context/Timing Onset: Yesterday Context: Sudden Onset Timing: Continuous Quality of Pain: Aching, Burning, Stabbing and Throbbing Location: Right ankle Worsened by: Walking Relieved by: Rest Associated Symptoms Associated Symptoms: Negative for Parasthesia, Weakness or Loss of Funtion [facility] Medical History Carotid stenosis Essential hypertension PAD (peripheral artery disease) Carotid stenosis, left Cardiomyopathy Hypokalemia Coronary artery disease Adrenal insufficiency Anxiety Aspiration pneumonia Healthcare associated bacterial pneumonia Debility Cardiogenic shock NSTEMI (non-ST elevated myocardial infarction) Tobacco use Chronic obstructive pulmonary disease (COPD) Ventricular tachycardia [place] Cardiac arrest STEMI (ST elevation myocardial infarction) History of GI bleed Peripheral vascular insufficiency History of myocardial infarction Atherosclerotic heart disease of [place] coronary artery without angina pectoris Tobacco abuse Hypotension Left shoulder pain Squamous cell carcinoma of left lung Hyperlipidemia Home Medications ?Medication ?Instructions ?Recorded ?Last Taken ?Type hydrocortisone 10 mg tablet 20 mg PO .COMPLEX adrenal 02/04/21 04/29/23 History insufficiency escitalopram oxalate 20 mg tablet 20 mg PO DAILY [facility] 06/30/22 04/29/23 History (Lexapro) lorazepam 1 mg tablet (Ativan) 1.5 mg PO QHS anxiety 0 03/08/23 Unknown History aspirin 81 mg tablet,delayed 81 mg PO DAILY@0800 #100 tabs 04/29/23 Unknown Rx release pantoprazole 40 mg tablet,delayed 40 mg PO DAILY reflu x #30 tabs 09/26/23 Unknown Rx release (Protonix) nitroglycerin 0.4 mg sublingual 0.4 mg sublingual Q5-1 5M PRN chest 10/13/23 Unknown Rx tablet pain #25 tabs evolocumab 140 mg/mL subcutaneous 140 mg subcut Q2W ch olesterol #2 mL 04/02/24 Unknown Rx pen injector (Enriqueta Anna) sacubitril 24 mg-valsartan 26 mg 1 tab PO BID heart #1 80 tabs 04/24/24 Unknown Rx tablet (Entresto) ticagrelor 90 mg tablet 90 mg PO BID blood thinner # 180 05/14/24 Unknown Rx tabs metoprolol tartrate 25 mg tablet 25 mg PO BID blood pr essure #180 07/16/24 Unknown Rx tabs Allergy/AdvReac Type Severity Reaction Status Date / Time acetaminophen (From Vicodin) Allergy Intermediate Itching Verified 09/30/24 09:55 atorvastatin AdvReac Severe Myalgias Verified 09/30/24 09:55 empagliflozin (From AdvReac Severe Frequent Verified 09/30/24 09:55 Jardiance) and continuous UTI's hydrocodone AdvReac Itching Verified 09/30/24 09:55 hydrocodone bitartrate (From AdvReac Itching Verified 09/30/24 09:55 Vicodin) oxycodone HCl (From Percocet) AdvReac Itching Verified 09/30/24 09:55 Family History Mother Heart disease Hypertension CVA (cerebral vascular accident) Surgical History Hx of tubal ligation Hx of appendectomy Presence of stent in coronary artery (~04/29/23) Aortocoronary bypass status (~09/24/13) Social History Smoking Status: Current every day smoker tobacco type: cigarettes quit status: considering quitting alcohol intake: never substance use type: does not use caffeine: Yes what type of physical activity do you participate in: none frequency: does not exercise ROS ROS ED Constitutional Constitutional ED: Denies chills or fever(s) Eyes Eyes: Denies blurry vision or change in vision ENT ENT ED: Denies rhinorrhea or sore throat Cardiovascular Cardiovascular: Denies chest pain or palpitations Respiratory/Chest Respiratory/Chest: Denies cough or dyspnea Gastrointestinal Gastrointestinal: Denies nausea or vomiting Genitourinary Genitourinary ED: Denies dysuria or hematuria Musculoskeletal Musculoskeletal: Denies back pain or neck pain Integumentary Reports rash; Denies abscess Neurologic Neurologic: Denies headache(s) or weakness Allergic/Immunologic Allergic/Immunologic ED: Denies mouth swelling or urticaria EXAM Physical Exam Const Vital Signs: 09/30/24 09:54 Temperature 97.2 F L Temperature Source Temporal Pulse Rate 77 Respiratory Rate 18 Blood Pressure 119/61 Blood Pressure Mean 80 Pulse Ox 99 Oxygen Delivery Method Room Air Positive well nourished and well developed General Appearance ED: well developed and NAD HEENT Reports moist mucous membranes Neck full ROM and supple Extremity Extremity Narrative: There is tenderness, edema, and ecchymosis over the right ankle, worse over the lateral aspect of the ankle. There is no obvious deformity noted. Range of motion was limited in all motions of the right ankle secondary to pain. There is no tenderness over the proximal fibula. There is no tenderness over the fifth metatarsal. Pedal pulses are equal bilaterally. Sensation was intact to light touch in all digits. Capillary refills less than 2 seconds in all digits. Neuro oriented x3, CN's II-XII intact bilaterally, moves all extremities and no sensory deficits noted Sensorium / Orientation: alert Motor Exam: strength 5/5 throughout Psych mental status grossly normal MDM MDM MDM Narrative Medical decision making narrative: Differential diagnosis includes sprain, fracture, and contusion. X-rays of the right ankle will be obtained to assess for fracture. History & Record Review Additional record(s) reviewed:: Prior ED visit Radiography Diagnostic Testing: X-rays of the right ankle were obtained. There are 3 views. On my independent interpretation, there is a questionable avulsion of the tip of the lateral malleolus. There is no obvious deformity noted. There is some soft tissue swelling noted. Radiologist also interpreted the x-rays and did not feel there is a avulsion fracture. Treatment and Re-Evaluation Narrative: Patient was advised of her findings. Patient was given a dose of Naprosyn here. Patient was instructed to ice and elevate the right ankle. Patient was given an Aircast. Patient was instructed to take Tylenol or ibuprofen as needed for pain. Patient was instructed to return if worse in any way. Patient understood and was agreeable with the plan. All questions were answered. Discharge Plan Triage Chief Complaint: Lower Extremity Injury ED Provider: Raheel Yun Dx/Rx/DC Orders Clinical Impression: Right ankle sprain, Fall, COPD (chronic obstructive pulmonary disease) Instructions: ED Ankle Sprain (Adult) Prescriptions: No Action lorazepam [Ativan] 1 mg tablet 1.5 mg PO QHS escitalopram oxalate [Lexapro] 20 mg tablet 20 mg PO DAILY hydrocortisone 10 mg tablet 20 mg PO .COMPLEX Patient Comments: TAKE 2 TABLETS BY MOUTH at 7AM and ONE TABLET at 7PM Rx Instructions: 20 mg PO TAKE 2 TABLETS BY MOUTH at 7AM and ONE TABLET at 7PM; aspirin 81 mg Tablet,Delayed Release (Dr/Ec) 81 mg PO DAILY@0800 Qty: 100 3RF pantoprazole [Protonix] 40 mg tablet,delayed release (DR/EC) 40 mg PO DAILY Qty: 30 11RF nitroglycerin 0.4 mg tablet, sublingual 0.4 mg sublingual Q5-15M PRN (Reason: chest pain) Qty: 25 6RF Rx Instructions: do not exceed 3 doses per episode Repatha SureClick 140 mg/mL pen injector 140 mg SC Q2W Qty: 2 11RF Entresto 24-26 mg tablet 1 tab PO BID Qty: 180 3RF Rx Instructions: Hold for SBP less than 90 mmHg ticagrelor 90 mg tablet 90 mg PO BID Qty: 180 3RF metoprolol tartrate 25 mg tablet 25 mg PO BID Qty: 180 3RF Primary Care Provider: Nereyda Mcdonald Referrals: Nereyda Mcdonald, [facility] [Primary Care Provider] - 5-7 Days Print Language: Czech Disposition Disposition: Home, Self Care
--- NOTE | 2024-09-30 10:22 | RAD_ITS ---
PROCEDURE: ANKLE MIN 3 VIEWS 09/30/2024 REASON FOR EXAM: INJURY/PAIN TECHNIQUE: ANKLE MIN 3 VIEWS Laterality: COMPARISON: None. FINDINGS: Bones: No acute bony abnormalities. Joints: No dislocations. Soft tissues: Soft tissue abnormality at the lateral right ankle. RAD/Ankle min 3 Views IMPRESSION: No acute bony abnormalities. Reading Location: [id number]
--- OUTSIDE RECORDS SUMMARY | 2024-09-30 10:22 | XMS RPT_ITS | CCD ---
Author Organization [facility] Care Team Providers Care Jacquard Card Cutter Name Role Phone Harvey Chow Primary Care Provider Dr. Harvey Chow Primary Care Provider Dr. Alexy John Attending Provider Dr. Alexy John Referring Provider [phone] Dr. Alexy John Other Provider [phone] Harvey Chow Referring Provider RAQUEL Lombardo Attending Provider Harvey Chow MD Primary Care Provider [phone] Harvey Chow MD Primary Care Provider [phone] Dr. Harvey Chow Primary Care Provider Dr. Harvey Chow Referring Provider HERSON Roblero NP Attending Provider Dr. Harvey Chow Referring Provider Unavailable HERSON Roblero NP Attending Provider HERSON Stafford Primary Care Provider [phone] Dr. Raheel Yun Emergency Provider [phone] Prince Ortega Attending Provider Unavail Dr. Harvey Cruz Referring Provider Unavailable HERSON Roblero NP Attending Provider HERSON Stafford Primary Care Provider [phone] Dr. Raheel Yun Emergency Provider [phone] Prince Ortega Attending Provider Unavail Dr. Raheel Johnson Attending Provider Dr. Jazmine Smith Attending Provider Dr. Prince Ortega Admit Provider Unavailabl e Dr. Prince Ortega Other Provider Unavailabl e Dr. Juan Dupree Other Provider Karime Cota Other Provider Unavailable Dr. Nina Wilson Other Provider Unavailable Dr. Eunice Sharma Other Provider Dr. Cj Rain Other Provider Dr. Cruz Reynolds Other Provider Unavailable Dr. Braeden Nino Other Provider Dr. Rahul Curtis Other Provider Dr. Raheel Bradley Other Provider Dr. Jazmine Smith Other Provider Dr. Bakari Tan Other Provider Dr. Montez Lara Other Provider Dr. Kal Lopez Other Provider Dr. Nicolette Bullock Other Provider Dr. Alexy John Other Provider Dr. Rufus Arreola Other Provider Dr. Rene Solo Other Provider [phone] Dr. Jovany Castro Other Provider Roof CLINICAL LAB CLERK, CLINICAL LAB CLERK-C Eduardo Subramanian Other Provider Osbaldo CLINICAL LAB CLERK, CLINICAL LAB CLERK-C Karime Other Provider Edie PA, PA Lisa Scott Other Provider Dr. Wyatt Wyatt Attending Provider Dr. Wyatt Wyatt Other Provider Dr. Loy Matthew Other Provider Dr. Lori Willson Other Provider Unavailable Dr. Federico Al Other Provider Unavailab surinder Chang CLINICAL LAB CLERK, CLINICAL LAB CLERK-C Brigitte Other Provider Dr. Juan Dupree Attending Provider Edie GARCÍA, PA Lisa Scott Attending Provider Dr. Loy Matthew Attending Provider Dr. Dewayne Cleveland Other Provider Dr. Dewayne Cleveland Attending Provider Dr. Raheel Sandoval Attending Provider Dr. Prince Ortega Referring Provider Unavail able Dr. Jazmine Smith Attending Provider Dr. Prince Ortega Admit Provider Unavailabl e Dr. Prince Ortega Other Provider Unavailabl e Dr. Juan Dupree Other Provider Karime Cota Other Provider Unavailable Dr. Nina Wilson Other Provider Unavailable Dr. Eunice Sharma Other Provider Dr. Cj Rain Other Provider Dr. Cruz Reynolds Other Provider Unavailable Dr. Braeden Nino Other Provider Dr. Rahul Curtis Other Provider Dr. Raheel Bradley Other Provider Dr. Jazmine Smith Other Provider Dr. Bakari Tan Other Provider Dr. Montez Lara Other Provider Dr. Kal Lopez Other Provider Dr. Nicolette Bullock Other Provider Dr. Alexy John Other Provider Dr. Rufus Arreola Other Provider Dr. Rene Solo Other Provider Dr. Jovany Castro Other Provider Aidan CLINICAL LAB CLERK, CLINICAL LAB CLERK-C Eduardo Subramanian Other Provider Osbaldo CLINICAL LAB CLERK, CLINICAL LAB CLERK-C Karime Other Provider Edie GARCÍA, PA Lisa Scott Other Provider Dr. Wyatt Wyatt Attending Provider Dr. Wyatt Wyatt Other Provider Dr. Loy Matthew Other Provider Dr. Lori Willson Other Provider Unavailable Dr. Federico Al Other Provider Unavailab surinder Chang CLINICAL LAB CLERK, CLINICAL LAB CLERK-C Brigitte Other Provider Dr. Dewayne Cleveland Referring Provider Dr. Juan Dupree Attending Provider Edie GARCÍA PA Lisa Scott Attending Provider Dr. Loy Matthew Attending Provider Dr. Dewayne Cleveland Other Provider Dr. Dewayne Cleveland Attending Provider JERRELL Stafford-C Patsy Referring Provider Dr. Eunice Sharma Attending Provider Osbaldo CLINICAL LAB CLERK, CLINICAL LAB CLERK-C Karime Referring Provider Dr. Harvey Chow Referring Provider Unavailable Osbaldo CLINICAL LAB CLERK, CLINICAL LAB CLERK-C Karime Attending Provider JERRELL Stafford-C Patsy Primary Care Provider Dr. Raheel Yun Emergency Provider Dr. Prince Ortega Attending Provider Unavail able Dr. Raheel Sandoval Attending Provider Dr. Prince Ortega Referring Provider Unavail able Dr. Jazmine Smith Attending Provider Dr. Prince Ortega Admit Provider Unavailabl e Dr. Prince Ortega Other Provider Unavailabl e Dr. Juan Dupree Other Provider Karime Cota Other Provider Unavailable Dr. Nina Wilson Other Provider Unavailable Dr. Eunice Sharma Other Provider Dr. Cj Rain Other Provider Dr. Cruz Reynolds Other Provider Unavailable Dr. Braeden Nino Other Provider Dr. Rahul Curtis Other Provider Dr. Raheel Bradley Other Provider Dr. Jazmine Smith Other Provider Dr. Bakari Tan Other Provider Dr. Montez Lara Other Provider Dr. Kal Lopez Other Provider Dr. Nicolette Bullock Other Provider Dr. Alexy John Other Provider Dr. Rufus Arreola Other Provider Dr. Rene Solo Other Provider Dr. Jovany Castro Other Provider Roof CLINICAL LAB CLERK, CLINICAL LAB CLERK-C Eduardo Subramanian Other Provider Osbaldo CLINICAL LAB CLERK, CLINICAL LAB CLERK-C Karime Other Provider Edie GARCÍA, PA Lisa Scott Other Provider Dr. Wyatt Wyatt Attending Provider Dr. Wyatt Wyatt Other Provider Dr. Loy Matthew Other Provider Dr. Lori Willson Other Provider Unavailable Dr. Federico Al Other Provider Unavailab surinder Chang CLINICAL LAB CLERK, CLINICAL LAB CLERK-C Brigitte Other Provider Dr. Dewayne Cleveland Referring Provider Dr. Juan Dupree Attending Provider Edie GARCÍA, PA Lisa Scott Attending Provider Dr. Loy Matthew Attending Provider Dr. Dewayne Cleveland Other Provider Dr. Dewayne Cleveland Attending Provider JERRELL Stafford-C Patsy Referring Provider Dr. Eunice Sharma Attending Provider Osbaldo CLINICAL LAB CLERK, CLINICAL LAB CLERK-C Karime Referring Provider Karime Cota Attending Provider Unavailable Harry, CLINICAL LAB CLERK-C Patsy Primary Care Provider Osbaldo ALLAN, JERRELL-C Karime Attending Provider Dr. Eunice Sharma Referring Provider Harry, CLINICAL LAB CLERK-C Patsy Primary Care Provider Dr. Raheel Yun Emergency Provider Dr. Prince Ortega Admit Provider Unavailabl e Dr. Prince Ortega Other Provider Unavailabl e Karime Cota Other Provider Unavailable Dr. Nina Wilson Other Provider Unavailable Dr. Eunice Sharma Other Provider Dr. Cj Rain Other Provider Dr. Cruz Reynolds Other Provider Unavailable Dr. Braeden Nino Other Provider Dr. Rahul Curtis Other Provider Dr. Raheel Bradley Other Provider Dr. Jazmine Smith Other Provider Dr. Bakari Tan Other Provider Dr. Montez Lara Other Provider Dr. Kal Lopez Other Provider Dr. Nicolette Bullock Other Provider Dr. Alexy John Other Provider Dr. Rufus Arreola Other Provider Dr. Rene Solo Other Provider [phone] Dr. Jovany Castro Other Provider Roof CLINICAL LAB CLERK, CLINICAL LAB CLERK-C Eduardo Subramanian Other Provider Osbaldo CLINICAL LAB CLERK, CLINICAL LAB CLERK-C Karime Other Provider RAQUEL Gutierres Other Provider Dr. Wyatt Wyatt Other Provider Dr. Loy Matthew Attending Provider Dr. Loy Matthew Other Provider Dr. Lori Willson Other Provider Unavailable Dr. Federico Al Other Provider Unavailab surinder Chang CLINICAL LAB CLERK, CLINICAL LAB CLERK-C Brigitte Other Provider Dr. Dewayne Cleveland Referring Provider Dr. Dewayne Cleveland Other Provider Dr. Juan Dupree Other Provider Dr. Dewayne Cleveland Attending Provider JERRELL Stafford-C Patsy Referring Provider [phone] Osbaldo ALLAN, CLINICAL LAB CLERK-C Karime Attending Provider Dr. Eunice Sharma Attending Provider Osbaldo ALLAN, CLINICAL LAB CLERK-C Karime Referring Provider Karime Cota Attending Provider Unavailable Dr. Eunice Sharma Referring Provider HERSON Stafford Primary Care Provider Osbaldo ALLAN, CLINICAL LAB CLERK-C Karime Other Provider Jeevan Boss MD Unavailable Harry ALLAN, Patsy Primary Care Provider [phone] PATSY STAFFORD Primary Care Unavailable JEEVAN BOSS Referring Unavailable JEEVAN BOSS Attending Unavailable PAOLA FRIED Referring Unavailable HARVEY CHOW Primary Care Unavailable HARVEY CHOW Primary Care Unavailable JEEVAN BOSS Referring Unavailable HARVEY CHOW Primary Care Unavailable Harvey Chow MD Primary Care Provider [phone] Harvey Chow Primary Care Provider Jessica Tellez MD Unavailable Jonathan GARCÍA-C, Simi Unavailable Harry, Patsy Primary Care Unavailable Osbaldo CLINICAL LAB CLERK, Karime Referring Unavailable Osbaldo CLINICAL LAB CLERK, Karime Attending Unavailable Harry, Patsy Primary Care Unavailable Shaun Hendricks Attending Unavailable Zachary, Eunice Referring Unavailable Harry, Patsy Primary Care Unavailable Zachary, Eunice Attending Unavailable Zachary, Eunice Referring Unavailable Harry, Patsy Primary Care Unavailable Zachary, Eunice Attending Unavailable Harry, Patsy Primary Care Unavailable Osbaldo CLINICAL LAB CLERK, Karime Attending Unavailable Harry, Patsy Referring Unavailable Harry, Patsy Primary Care Unavailable Harry, Patsy Referring Unavailable Roblero CLINICAL LAB CLERK, Karime Attending Unavailable Harry, Patsy Primary Care Unavailable Roblero CLINICAL LAB CLERK, Karime Attending Unavailable Harry, Patsy Referring Unavailable Zachary, Eunice Attending Unavailable Harry, Patsy Primary Care Unavailable Harry, Patsy Primary Care Unavailable Osbaldo CLINICAL LAB CLERK, Karime Attending Unavailable Harry, Patsy Primary Care Unavailable Harry, Patsy Referring Unavailable Zachary, Eunice Attending Unavailable Harry, Patsy Primary Care Unavailable Karime Cota Attending Unavailable Zachary, Eunice Consulting Unavailable Zachary, Eunice Admitting Unavailable Zachary, Eunice Attending Unavailable Harry, Patsy Primary Care Unavailable Osbaldo CLINICAL LAB CLERK, Karime Referring Unavailable Osbaldo CLINICAL LAB CLERK, Karime Consulting Unavailable Harry, Patsy Primary Care Unavailable Osbaldo CLINICAL LAB CLERK, Karime Referring Unavailable Osbaldo CLINICAL LAB CLERK, Karime Attending Unavailable Harry, Patsy Attending Unavailable Harry, Patsy Primary Care Unavailable Harry, Patsy Primary Care Unavailable Harry, Patsy Attending Unavailable Harry, Patsy Primary Care Unavailable Osbaldo CLINICAL LAB CLERK, Karime Referring Unavailable Osbaldo CLINICAL LAB CLERK, Karime Attending Unavailable Zachary, Eunice Admitting Unavailable Zachary, Eunice Referring Unavailable Zachary, Eunice Attending Unavailable Harry, Patsy Primary Care Unavailable Allergies Allergy Classification Reported Allergen(s) Allergy Type Date of Onset Reaction(s) Facility Acetaminophen / HYDROcodone (1 source) Acetaminophen / HYDROcodone Drug Allergy 06-10-2014 [facility] Acetaminophen / oxyCODONE (1 source) Acetaminophen / oxyCODONE Drug Allergy 06-10-2014 [facility] HMG-CoA Reductase Inhibitors (statins) (2 sources) atorvastatin Drug Allergy 08-05-2020 [facility] Opioid Agonists (4 sources) HYDROcodone Drug All[facility] atorvastatin Drug Allergy 06-17-2021 [facility] (13 sources) HYDROcodone Drug Allergy 03-24-2020 [facility] (10 sources) HYDROcodone; Translations: [hydrocodone bitartrate] Drug Allergy 06-17-2021 [facility] (10 sources) oxyCODONE; Translations: [oxycodone HCl] Drug Allergy 06-[facility] (19 sources) Acetaminophen / HYDROcodone; Translations: [HYDROCODONE-ACETA MINOPHEN] Drug Allergy 06-10-2014 [facility] Work Phone: (19 sources) Acetaminophen / oxyCODONE; Translations: [OXYCODONE-ACETAMI NOPHEN] Drug Allergy 06-10-2014 [facility] Work Phone: (7 sources) Acetaminophen Drug Allergy 02-04-2023 [facility] (4 sources) atorvastatin Drug Allergy 03-24-2020 [facility] (4 sources) oxyCODONE Drug Allergy 03-24-2020 [facility] (1 source) Acetaminophen Drug Allergy 07-29-2023 [facility] (1 source) atorvastatin Drug Allergy 07-29-2023 [facility] (1 source) empagliflozin Drug Allergy 02-10-2024 [facility] (1 source) HYDROcodone Drug Allergy 07-29-2023 [facility] Medications Current Medications Medication Drug Class(es) Dates Sig (Normalized) Sig (Original) aspirin 81 mg delayed release oral tablet (20 sources) Platelet Aggregation Inhibitor, Nonsteroidal Anti-inflammatory Drug Start: 04-29-2023 take 81 mg by mouth once daily Aspirin Active 81 MG PO DAILY@0800 100 April 29, 2023 12:00am Start: 06-30-2022 End: 03-08-2023 Aspirin (Adult Low Dose Aspi rin) 81 mg tablet,delayed release (DR/EC) Discontinued 81 MG PO DAILY January 03, 2023 11:03am March 08, 2023 11:32am Start: 02-17-2013 End: 02-04-2021 take 81 mg by mouth once daily Aspirin Discontinued 81 MG PO DAILY February 17, 2013 1:00am February 04, 2021 2:49pm take 1 tablet by fatmata twice daily aspirin 81 mg cap Take 1 tablet by mouth two times a day. Active take 1 tablet by fatmata th once daily aspirin 81 mg cap Take 1 tablet by mouth once daily. 0 Active take 1 tablet by fatmata th once daily aspirin 81 MG EC tablet Take 81 mg by mouth daily. 0 Active Comment on above: Take 1 tablet by fatmata th once daily. Take 1 tablet by fatmata th two times a day. cilostazol 50 mg oral tablet (20 sources) Phosphodiesterase 3 Inhibitor Start: End: take 1 tablet by mouth twice daily cilostazol (Pletal) 50 MG tablet Indications: Atherosclerosis of [place] arteries of extremities with intermittent claudication, bilateral legs (HCC) Take 1 tablet (50 mg) by mouth 2 times daily. 180 tablet 2 04/20/2022 01/15/2023 Active Start: 02-04-2021 End: 12-18-2021 take 50 mg by mouth once daily Cilostazol Discontinued 50 MG PO DAILY February 04, 2021 1:00am December 18, 2021 1:20pm take 0.5 tablet by m outh twice daily cilostazol (PLETAL) 100 mg tablet Take 1/2 tablet by mouth twice daily. Active take 1 tablet by fatmata th twice daily cilostazol (PLETAL) 100 mg tablet Take 100 mg by mouth twice daily. 0 Active Comment on above: Take 100 mg by mouth twice daily. Take 1/2 tablet by m outh twice daily. empagliflozin 10 mg oral tablet (9 sources) Sodium-Glucose Cotransporter 2 Inhibitor Start: End: take 1 tablet by mouth once daily Empagliflozin (Jardiance) 10 mg tablet Active 10 MG PO DAILY May 02, 2023 10:12am Hold if patient gets vaginitis/moniliasis escitalopram 20 mg oral tablet (20 sources) Serotonin Reuptake Inhibitor Start: take 1 tablet by mouth once daily Escitalopram Oxalate (Lexapro) 20 mg tablet Active 20 MG PO DAILY June 30, 2022 12:00am Comment on above: Take 20 mg by mouth once daily. 1 ml evolocumab 140 mg/ml auto-injector (20 sources) PCSK9 Inhibitor Start: End: inject 140 mg by subcutaneous injection every other week REPATHA SURECLICK 140 mg/mL pen injector inject 140 MG SUBCUTANEOUSLY EVERY 2 WEEKS 07/07/2020 Active Start: 04-17-2020 End: 05-02-2023 Evolocumab 140 M G/ML SOAJ Inject into the skin 0 Active Comment on above: inject 140 MG SUBCUT ANEOUSLY EVERY 2 WEEKS hydrocortisone 10 mg oral tablet (20 sources) Corticosteroid Start: End: take 2 tablets by mouth once in the morning, then take 1 tablet by mouth in the evening hydrocortisone (CORTEF) 10 mg tablet Indications: 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 90 tablet 5 09/06/2023 02/23/2024 Discontinued Start: 03-09-2021 End: 08-30-2022 take 2 tablets by mouth in the morning, then take 1 tablet by mouth in the evening hydrocortisone (Cortef) 10 MG tablet TAKE 2 TABLETS BY MOUTH at 7 (SEVEN) a.m. and TAKE 1 TABLET BY MOUTH at 7 (SEVEN) p.m. 0 03/01/2022 Active Start: 02-11-2020 End: 02-04-2021 Hydrocortisone Active 20 MG PO .COMPLEX February 04, 2021 2:48pm 20 mg PO TAKE 2 TABLETS BY MOUTH at 7AM and ONE TABLET at 7PM; Start: 02-11-2020 End: 02-04-2021 take 10 mg by mouth at bedtime Hydrocortisone Disconti nued 10 MG PO AT BEDTIME February 11, 2020 1:00am February 04, 2021 2:49pm take 1 tablet by fatmata th once daily hydrocortisone (Cortef) 20 MG tablet Take 20 mg by mouth daily. 0 Active Comment on above: 20mg orally 7 AM & 1 0mg orally 7 PM. lisinopril 2.5 mg oral tablet (20 sources) Angiotensin Converting Enzyme Inhibitor Start: End: take 5 mg by mouth once daily Lisinopril Discontinued 5 MG PO DAILY February 16, 2020 8:03pm March 24, 2020 4:37pm Start: 12-14-2013 End: 02-11-2023 take 1 tablet by mouth once daily lisinopril 2.5 mg tablet Take 2.5 mg by mouth once daily. 07/07/2020 Active Start: 12-14-2013 End: 03-25-2015 take 5 mg by mouth once daily Lisinopril Discontinued 5 MG PO DAILY December 14, 2013 12:00am March 25, 2015 12:24pm Comment on above: Take 2.5 mg by mouth once daily. LORazepam 1 mg oral tablet (20 sources) Benzodiazepine Start: take 1.5 mg by mouth every twenty-four hours as needed LORazepam (ATIVAN) 1 mg tablet Take 1.5 mg by mouth at bedtime as needed. 07/07/2020 Active Start: 04-15-2020 End: 03-08-2023 take 1 tablet by mouth at bedtime Lorazepam (Ativan) 1 mg tablet Discontinued 1 MG PO AT BEDTIME April 15, 2020 3:20pm March 08, 2023 11:46am Start: 07-25-2018 End: 02-25-2020 take 1 mg by mouth at bedtime Lorazepam Discontinued 1 MG PO AT BEDTIME July 25, 2018 12:00am February 25, 2020 11:08am Start: 07-25-2018 End: 02-25-2020 Comment on above: Take 1 mg by mouth a t bedtime as needed. Take 1.5 mg by mouth at bedtime as needed. metoprolol tartrate 25 mg oral tablet (20 sources) beta-Adrenergic Nakul Start: 03-24-2020 End: 04-19-2023 take 1 tablet by mouth twice daily metoprolol tartrate, short acting, (LOPRESSOR) 25 mg tablet Take 25 mg by mouth twice daily. 06/22/2020 Active Start: 02-15-2020 End: 03-24-2020 take 25 mg by mouth once daily Metoprolol Succinate Di scontinued 25 MG PO DAILY February 16, 2020 8:03pm March 24, 2020 4:37pm Start: 02-17-2013 End: 03-25-2015 take 50 mg by mouth once daily Metoprolol Succinate Di scontinued 50 MG PO DAILY February 17, 2013 1:00am March 25, 2015 12:24pm Comment on above: Take 25 mg by mouth twice daily. nitroglycerin 0.4 mg sublingual tablet (17 sources) Nitrate Vasodilator Start: 02-04-2021 End: 06-30-2022 Nitroglycerin Active 0.4 MG SL every 5 to 15 minutes June 30, 2022 11:17am do not exceed 3 doses per episode Start: 02-04-2021 End: 06-30-2022 OXYGEN, HOME THERAPY, (19 sources) OXYGEN, HOME THE RAPY, Inhale 2 L/min as instructed daily at bedtime. Active OXYGEN, HOME THE RAPY, Inhale 2 L/min as instructed daily at bedtime. 0 Active Comment on above: Inhale 2 L/min as in structed daily at bedtime. pantoprazole 40 mg delayed release oral tablet (6 sources) Proton Pump Inhibitor Start: 3 take 1 tablet by mouth once daily Pantoprazole (Protonix) 40 mg tablet,delayed release (DR/EC) Active 40 MG PO DAILY February 11, 2023 1:00am sacubitril 24 mg / valsartan 26 mg oral tablet (9 sources) Angiotensin 2 Receptor Nakul Start: 3 End: 4 Sacubitril-Valsartan (Entresto) 24-26 mg tablet Active 1 TABLET PO TWICE A DAY May 06, 2023 10:06am Hold for SBP less than 90 mmHg Start: 02-11-2023 End: 05-06-2023 ticagrelor 90 mg oral tablet (20 sources) Start: 02-15-2020 End: 05-19-2023 take 1 tablet by mouth twice daily BRILINTA 90 mg tablet Take 90 mg by mouth twice daily. 07/07/2020 Active Comment on above: Take 90 mg by mouth twice daily. Completed/Discontinued Medications Medication Drug Class(es) Dates Sig (Normalized) Sig (Original) acetaminophen 325 mg oral tablet (18 sources) Start: 02-15-2020 End: 03-24-2020 take 650 mg by mouth every four hours as needed Acetaminophen Discontinued 650 MG PO EVERY 4 HOURS NEEDED February 15, 2020 1:00am February 25, 2020 11:33am Start: 02-15-2020 End: 03-24-2020 take 650 mg by mouth every six hours as needed Acetaminophen Discontinued 650 MG PO EVERY 6 HOURS NEEDED February 25, 2020 1:00am March 24, 2020 4:37pm albuterol 0.21 mg/ml inhalation solution (20 sources) beta2-Adrenergic Agonist Start: 12-18-2021 End: 01-03-2023 take 0.63 mg by inhalation every four hours Albuterol Sulfate Discontinued 0.63 MG INHALATION Q4H December 18, 2021 12:00am January 03, 2023 11:03am Start: 02-15-2020 End: 02-25-2020 take 1 puff(s) by inhalation every four hours as needed Albuterol Sulfate Discontinued 2 PUFF IH EVERY 4 HOURS NEEDED February 15, 2020 11:20am February 25, 2020 11:05am Start: 02-15-2020 End: 02-25-2020 Start: 09-05-2019 albuterol (PRO VENTIL) 2.5 mg /3 mL (0.083 %) nebulizer solution Inhale 1 ampule via nebulizer every 4 hours as needed for wheezing. 09/05/2019 Active Start: 08-22-2014 End: 08-23-2014 Albuterol Sulfate (Ventolin Hfa (Sp)) 1 INHALER inhaler Discontinued 1 PUFF INHALATION EVERY 4 HOURS NEEDED August 22, 2014 10:53am August 23, 2014 5:37pm Start: 08-22-2014 End: 08-23-2014 Albuterol Sulfate (Ventolin Hfa (Sp)) 1 INHALER inhaler Discontinued 1 PUFF INHALATION EVERY 4 HOURS NEEDED August 22, 2014 12:00am August 23, 2014 5:37pm Start: 08-22-2014 End: 08-23-2014 Comment on above: Inhale 1 ampule via nebulizer every 4 hours as needed for wheezing. amoxicillin 875 mg / clavulanate 125 mg oral tablet (20 sources) Penicillin-class Antibacterial Start: 2 End: 2 take 1 tablet by mouth every twelve hours Amoxicillin-Pot Clavulanate Discontinued 1 TABLET PO Q12H 20 10 May 05, 2021 12:00am May 15, 2021 12:04am Start: 05-05-2021 End: 05-15-2021 Start: 02-15-2020 End: 02-25-2020 Amoxicillin-Pot Clavulanate Discontinued 1 EACH PO TWICE A DAY February 16, 2020 8:03pm February 25, 2020 11:07am Start: 02-15-2020 End: 02-25-2020 atorvastatin 10 mg oral tablet (18 sources) HMG-CoA Reductase Inhibitor Start: 02-15-2020 End: 03-24-2020 take 10 mg by mouth at bedtime Atorvastatin Discontinued 10 MG PO AT BEDTIME February 16, 2020 8:03pm March 24, 2020 4:38pm Start: 02-15-2020 End: 03-24-2020 benzonatate 100 mg oral capsule (9 sources) Non-narcotic Antitussive Start: 02-25-2020 End: 03-24-2020 take 100 mg by mouth three times daily as needed Benzonatate Discontinued 100 MG PO 3 TIMES DAILY NEEDED February 25, 2020 1:00am March 24, 2020 4:37pm diazePAM 5 mg oral tablet (14 sources) Benzodiazepine Start: 06-17-2021 End: 03-08-2023 take 7.5 mg by mouth every eight hours Diazepam Discontinued 7.5 MG PO EVERY 8 HOURS March 08, 2023 11:31am March 08, 2023 11:45am Start: 06-17-2021 End: 03-08-2023 take 2.5 mg by mouth every eight hours Diazepam Discontinued 2.5 MG PO EVERY 8 HOURS June 17, 2021 12:00am March 08, 2023 11:32am diphenhydrAMINE hydrochloride 25 mg oral capsule (9 sources) Histamine-1 Receptor Antagonist Start: 02-25-2020 End: 03-24-2020 take 25 mg by mouth twice daily as needed Diphenhydramine Hcl Discontinued 25 MG PO TWICE DAILY NEEDED February 25, 2020 1:00am March 24, 2020 4:37pm docusate sodium 100 mg oral capsule (9 sources) Start: 02-25-2020 End: 03-24-2020 take 100 mg by mouth twice daily as needed Docusate Sodium Discontinued 100 MG PO TWICE DAILY NEEDED February 25, 2020 1:00am March 24, 2020 4:37pm 0.4 ml enoxaparin sodium 100 mg/ml prefilled syringe (18 sources) Low Molecular Weight Heparin Start: 02-25-2020 End: 03-24-2020 Enoxaparin Discontinued 40 MG SC DAILY February 25, 2020 3:23pm March 24, 2020 4:37pm Start: 02-25-2020 End: 03-24-2020 furosemide 40 mg oral tablet (18 sources) Loop Diuretic Start: 02-15-2020 End: 03-24-2020 take 40 mg by mouth once daily Furosemide Discontinued 40 MG PO DAILY February 16, 2020 8:03pm March 24, 2020 4:37pm Hydrocodone-Homatro pine (Hycodan) 5-1.5 mg/5 mL (5 mL) syrup (4 sources) Start: 02-03-2023 End: 03-08-2023 Hydrocodone-Homatrop ine (Hycodan) 5-1.5 mg/5 mL (5 mL) syrup Discontinued 5 ML PO EVERY 6 HOURS 50 February 03, 2023 March 08, 2023 11:32am Start: 02-03-2023 End: 03-08-2023 Hydrocodone-Homatropine (Hyc odan) 5-1.5 mg/5 mL (5 mL) syrup Discontinued 5 ML PO EVERY 6 HOURS 50 February 03, 2023 March 08, 2023 10:32am Start: 02-03-2023 Hydrocodone-Ho matropine (Hycodan) 5-1.5 mg/5 mL (5 mL) syrup Active 5 ML PO EVERY 6 HOURS 50 February 03, 2023 HYDROmorphone hydrochloride 4 mg oral tablet (9 sources) Opioid Agonist Start: 02-23-2015 End: 03-25-2015 take 1 tablet by mouth every three hours Hydromorphone (Dilaudid) 4 MG tablet Discontinued 4 MG PO Q3H February 23, 2015 12:52pm March 25, 2015 12:24pm iopamidol (ISOVUE-370) 76 % injection 75 mL (1 source) Start: 09-15-2020 End: 09-15-2020 iopamidol (ISOVUE-370) 76 % injection 75 mL 24 hr isosorbide mononitrate 30 mg extended release oral tablet (9 sources) Nitrate Vasodilator Start: 02-17-2013 End: 12-14-2013 take 30 mg by mouth once daily Isosorbide Mononitrate Discontinued 30 MG PO DAILY February 17, 2013 1:00am December 14, 2013 7:22am levoFLOXacin 750 mg oral tablet (20 sources) Quinolone Antimicrobial Start: 02-25-2020 End: 03-24-2020 take 750 mg by mouth once daily Levofloxacin Discontinued 750 MG PO DAILY February 25, 2020 7:05pm March 24, 2020 4:37pm Start: 10-20-2016 End: 07-01-2017 take 750 mg by mouth once daily Levofloxacin Discontinued 750 MG PO DAILY@0600 3 October 20, 2016 12:00am July 01, 2017 11:50am Start: 02-17-2013 End: 02-27-2013 take 500 mg by mouth once daily Levofloxacin Discontinued 500 MG PO DAILY February 17, 2013 1:00am February 27, 2013 1:43pm methylPREDNISolone 4 mg oral tablet (9 sources) Corticosteroid Start: 05-05-2021 End: 05-10-2021 take 1 tablet by mouth once Methylprednisolone (Medrol (Tito)) 4 mg tablets,dose pack Discontinued 4 MG PO per package directions 04 07May 05, 2021 12:00am May 10, 2021 12:04am Start: 05-05-2021 End: 05-10-2021 naproxen 500 mg oral tablet (9 sources) Nonsteroidal Anti-inflammatory Drug Start: 06-04-2014 End: 08-23-2014 take 500 mg by mouth twice daily as needed Naproxen Discontinued 500 MG PO TWICE DAILY NEEDED June 04, 2014 12:00am August 23, 2014 5:33pm oxyCODONE hydrochloride 5 mg oral tablet (18 sources) Opioid Agonist Start: 02-15-2020 End: 03-24-2020 take 5 mg by mouth every four hours as needed Oxycodone Discontinued 5 MG PO EVERY 4 HOURS NEEDED 3 February 25, 2020 March 24, 2020 4:37pm microencapsulated potassium chloride 20 meq extended release oral tablet (18 sources) Start: 02-15-2020 End: 03-24-2020 take 20 mEq by mouth twice daily at mealtime Potassium Chloride Discontinued 20 MEQ PO TWICE DAILY WITH MEALS February 16, 2020 8:03pm March 24, 2020 4:38pm predniSONE 20 mg oral tablet (20 sources) Start: 02-03-2023 End: 03-08-2023 take 40 mg by mouth once daily Prednisone Discontinued 40 MG PO DAILY 09 17February 11, 2023 12:28pm March 08, 2023 11:32am Start: 02-17-2013 End: 02-27-2013 Prednisone Discontinued 10 M G PO DAILY February 17, 2013 1:00am February 27, 2013 1:43pm 6 po qd x 3 days, 4 po qd x 3 days, 2 po qd x 3 days, 1 po qd x 3 days QUEtiapine 25 mg oral tablet (18 sources) Atypical Antipsychotic Start: 02-25-2020 End: 03-24-2020 take 25 mg by mouth at bedtime Quetiapine Discontinued 25 MG PO AT BEDTIME February 25, 2020 3:23pm March 24, 2020 4:38pm Start: 02-25-2020 End: 03-24-2020 traMADol hydrochloride 50 mg oral tablet (9 sources) Opioid Agonist Start: 06-17-2021 End: 12-18-2021 take 50 mg by mouth every six hours as needed Tramadol Discontinued 50 MG PO EVERY 6 HOURS NEEDED 15 June 17, 2021 10:28am December 18, 2021 1:30pm (3 sources) Start: 02-03-2023 End: 03-08-2023 Start: 02-03-2023 Problems Active Problems Problem Classification Problem Date Documented Da te Episodic/Chronic Abdominal pain (1 source) Unspecified abdominal pain; Translations: [Unspecified abdominal pain] Onset: Episodic Acute bronchitis (13 sources) Respiratory syncytial virus bronchitis; Translations: [Acute bronchitis due to respiratory syncytial virus] 02-04-2023 Episodic Acute myocardial infarction (18 sources) Myocardial infarction; Translations: [Non-ST elevation (NSTEMI) myocardial infarction] 04-15-2020 Chronic Anxiety disorders (9 sources) Anxiety; Translations: [Anxiety disorder, unspecified] 04-15-2020 Chronic Aspiration pneumonitis; food/vomitus (9 sources) Aspiration pneumonia; Translations: [Pneumonitis due to inhalation of food and vomit] 04-15-2020 Episodic Cancer of bronchus; lung (20 sources) Squamous cell carcinoma of left lung; Translations: [Malignant neoplasm of unspecified part of left bronchus or lung] Onset: 5 Resolved: 5 Chronic Cancer; other respiratory and intrathoracic (19 sources) Malignant neoplasm of lower respiratory tract; 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] Onset: 5 09-12-2014 Chronic Cardiac arrest and ventricular fibrillation (9 sources) Cardiac arrest; Translations: [Cardiac arrest, cause unspecified] 04-15-2020 Chronic Cardiac dysrhythmias (20 sources) Torsades de pointes; Translations: [Ventricular tachycardia] Chronic Chronic obstructive pulmonary disease and bronchiectasis (20 sources) Chronic obstructive lung disease; Translations: [Chronic obstructive pulmonary disease, unspecified] 04-15-2020 Chronic Coronary atherosclerosis and other heart disease (20 sources) History of myocardial infarction; Translations: [Old myocardial infarction] Onset: 4 Chronic Disorders of lipid metabolism (20 sources) Hyperlipidemia; Translations: [Hyperlipidemia, unspecified] Chronic Essential hypertension (20 sources) Essential hypertension; Translations: [Essential (primary) hypertension] Chronic Fluid and electrolyte disorders (9 sources) Hypokalemia; Translations: [Hypokalemia] 04-15-2020 Episodic Fracture of upper limb (8 sources) Closed fracture of distal end of radius; Translations: [Unspecified fracture of the lower end of right radius, initial encounter for closed fracture] 07-19-2022 Episodic Genitourinary symptoms and ill-defined conditions (1 source) Hematuria, unspecified; Translations: [Hematuria, unspecified] Onset: 5 Episodic Malaise and fatigue (20 sources) Asthenia; Translations: [Other malaise] Onset: 6 01-16-2016 Episodic Occlusion or stenosis of precerebral arteries (20 sources) Left carotid artery occlusion; Translations: [Occlusion and stenosis of left carotid artery] Onset: 1 08-05-2020 Chronic Other circulatory disease (9 sources) Low blood pressure; Translations: [Hypotension, unspecified] 02-10-2020 Episodic Other endocrine disorders (20 sources) Hypoadrenalism; Translations: [Unspecified adrenocortical insufficiency] Onset: 1 Chronic Other endocrine disorders (19 sources) Mass of left adrenal gland; Translations: [Other specified disorders of adrenal gland] Onset: 5 06-10-2014 Chronic Other endocrine disorders (19 sources) Mass of right adrenal gland; Translations: [Other specified disorders of adrenal gland] Onset: 5 06-10-2014 Chronic Other endocrine disorders (19 sources) Adrenal cortical hypofunction; Translations: [Unspecified adrenocortical insufficiency] Onset: 7 10-25-2016 Chronic Other gastrointestinal disorders (9 sources) History of gastrointestinal bleed; Translations: [Personal history of other diseases of the digestive system] 01-27-2021 Episodic Other lower respiratory disease (7 sources) Hypoxia; Translations: [Hypoxemia] 02-04-2023 Episodic Other lower respiratory disease (6 sources) Hypoxemia; Translations: [Hypoxemia] 02-04-2023 Episodic Other lower respiratory disease (3 sources) Dyspnea on exertion; Translations: [Other forms of dyspnea] 05-19-2023 Episodic Other nervous system disorders (7 sources) Metabolic encephalopathy; Translations: [Metabolic encephalopathy] 02-04-2023 Chronic Other nervous system disorders (6 sources) Metabolic encephalopathy; Translations: [Metabolic encephalopathy] 02-04-2023 Chronic Other non-traumatic joint disorders (2 sources) Shoulder pain; Translations: [Pain in left shoulder] 02-10-2020 Episodic Other non-traumatic joint disorders (7 sources) Pain in left shoulder; Translations: [Left shoulder pain] 02-10-2020 Episodic Other upper respiratory infections (10 sources) Acute pharyngitis; Translations: [Acute pharyngitis, unspecified] Episodic Jeannette-; endo-; and myocarditis; cardiomyopathy (except that caused by tuberculosis or sexually transmitted disease) (20 sources) Cardiomyopathy; Translations: [Cardiomyopathy, unspecified] Onset: 4 Chronic Peripheral and visceral atherosclerosis (20 sources) Intermittent claudication of bilateral lower limbs co-occurrent and due to atherosclerosis; Translations: [Atherosclerosis of [place] arteries of extremities with intermittent claudication, bilateral legs] Onset: 1 Chronic Pneumonia (except that caused by tuberculosis or sexually transmitted disease) (20 sources) Healthcare associated bacterial pneumonia; Translations: [Unspecified bacterial pneumonia] 07-24-2020 Episodic Residual codes; unclassified (9 sources) Tobacco user; Translations: [Tobacco use] 04-15-2020 Episodic Residual codes; unclassified (9 sources) Tobacco use and exposure - finding; Translations: [Tobacco use] 07-19-2022 Episodic Residual codes; unclassified (5 sources) Tobacco use; Translations: [Tobacco use disorder] 02-11-2023 Episodic Respiratory failure; insufficiency; arrest (adult) (20 sources) Acute respiratory failure; Translations: [Acute respiratory failure, unspecified whether with hypoxia or hypercapnia] 07-24-2020 Episodic Secondary malignancies (20 sources) Secondary malignant neoplasm of adrenal gland; Translations: [Secondary malignant neoplasm of unspecified adrenal gland] Onset: 5 Chronic Secondary malignancies (19 sources) Secondary malignant neoplasm of brain; Translations: [Secondary malignant neoplasm of brain] Onset: 5 09-13-2014 Chronic Septicemia (except in labor) (20 sources) Septic shock; Translations: [Sepsis, unspecified organism] 07-24-2020 Episodic Shock (18 sources) Cardiogenic shock; Translations: [Cardiogenic shock] 04-15-2020 Episodic Spondylosis; intervertebral disc disorders; other back problems (10 sources) Low back pain; Translations: [Low back pain] Episodic Sprains and strains (9 sources) Lower back injury; Translations: [Strain of muscle, fascia and tendon of lower back, initial encounter] 06-25-2021 Episodic Past or Other Problems Problem Classification Problem Date Documented Da te Episodic/Chronic Coronary atherosclerosis and other heart disease (20 sources) Stented coronary artery; Translations: [Presence of coronary angioplasty implant and graft] Onset: 09-14-2013 Episodic Other lower respiratory disease (4 sources) Other forms of dyspnea; Translations: [Other respiratory abnormalities] Onset: 06-10-2023 05-19-2023 Episodic Other lower respiratory disease (5 sources) Lung mass; Translations: [Other nonspecific abnormal finding of lung field] Onset: 08-28-2014 Resolved: 09-12-2014 09-12-2014 Episodic Other screening for suspected conditions (not mental disorders or infectious disease) (19 sources) High troponin I level; Translations: [Other specified abnormal findings of blood chemistry] Onset: 05-22-2023 02-04-2023 Episodic Urinary tract infections (14 sources) Urinary tract infectious disease; Translations: [Urinary tract infection, site not specified] Onset: 06-13-2023 02-04-2023 Episodic Results Test Name Value Interpretation Reference Range Facility Cytology, Body Fluid / CSFon 03-14-2024 CYTOLOGY,BF/CSF SEE PATHOLOGY REPORT Normal [facility] Comment on above: Order Comment: URINE Result Comment: Spec imen submitted to Anatomical Pathology Department for testing. Performed By: #### M 100.2200 #### [facility] [address] [place], [address] Urine Cultureon 03-14-2024 URC Escherichia coli [place] Count 25,000-50,000 Escherichia coli: REACTION Ampicillin Islt MILDRED 8 Ampicillin+Sulbac Islt MILDRED <=2 S Cefepime Islt MILDRED <=0.12 S cefTRIAXone Islt MILDRED <=0.25 S Ciprofloxacin Islt MILDRED 1 R B-Lactamase Extended Susc Islt NEG Gentamicin Islt MILDRED <=1 S levoFLOXacin Islt MILDRED 1 I Meropenem Islt MILDRED <=0.25 S Nitrofurantoin Islt MILDRED <=16 S Pip+Tazo Islt MILDRED <=4 S TMP SMX Islt MILDRED <=20 S Normal [facility] Comment on above: Performed By: #### M 100.2200, L350.1000 ####[facility] [address] [place], [address] Pap Stain (control)on 2024 Pap Stain (control) -- ---- Patient Age/Sex Location Account Attending Physician ---- JONELLE CORONADO 68/F LABSPEC [id number] HERSON Matthews ---- Specimen: [id number] Received: 03/13/24 Status: JULIANN Winters Num: [id number] Spec Type: CYSPIN [place] Subm Dr: HERSON Matthews HEADER OPERATION: Not noted PRE-OP DIAGNOSIS: Hematuria TISSUE SUBMITTED: Urine for cytology ---- DIAGNOSIS CYTOLOGY Urine for cytology (cytospins): Negative for high grade urothelial carcinoma ([facility]), [facility]ieves System Category II. Acute inflammation. See comment. SJ.mr 03/13/2024 COMMENT Numerous organisms consistent with bacteria are also noted. The specimen predominantly consists of squamous epithelial cells. A few red blood cells are also noted. The Nieves System for urine cytology diagnostic categorization was used in the evaluation of this case. CYTOLOGY STUDY Slides are reviewed. CYTOLOGY GROSS Received is 25 ml of yellow cloudy fluid labeled with the patient's name and and designated per the requisition as urine. Submitted for cytology preparation. Mr 03/13/2024 TC:2 CPT: 37551 Signed (signature on file) Dr. Chico Gibbs MD 03/14/24 1058 ---- Normal [facility] Comment on above: Performed By: #### P PAPS ####[facility] [address] [place], [place], [id number] Basic Metabolic Profile (BMP )on 07-29-2023 BUN/CRE 10.7 RATIO Normal 10-20 [facility] Comment on above: Order Comment: REDRA W. PREVIOUS SPECIMEN REJECTED DUE TOHEMOLYSIS. 07/29/23 Julissa Mills. Performed By: #### M 100.2200 #### [facility] [address] [place], [place], [id number] CA,Total 8.2 mg/dL Low 8.5-10.1 [facility] Comment on above: Order Comment: REDRA W. PREVIOUS SPECIMEN REJECTED DUE TOHEMOLYSIS. 07/29/23 Julissa Mills. Performed By: #### M 100.2200 #### [facility] [address] [place], [place], [id number] Chloride [Moles/Vol] 107 mmol/L Normal 98-107 [facility] Comment on above: Order Comment: REDRA W. PREVIOUS SPECIMEN REJECTED DUE TOHEMOLYSIS. 07/29/23909 Julissa Mills. Performed By: #### M 100.2200 #### [facility] [address] [place], [place], [id number] CO2 [Moles/Vol] 19.0 mmol/L Low 21.0-32.0 [facility] Comment on above: Order Comment: REDRA W. PREVIOUS SPECIMEN REJECTED DUE TOHEMOLYSIS. 07/29/23 Julissa Mills. Performed By: #### M 100.2200 #### [facility] [address] [place], [address] Creatinine [Mass/Vol] 1.40 mg/dL High 0.55-1.02 [facility] Comment on above: Order Comment: REDRA W. PREVIOUS SPECIMEN REJECTED DUE TOHEMOLYSIS. 07/29/23 0910 Julissa Mills. Result Comment: The validity of the calculated GFR GFRAA in patients over 70 years has not been determined. Clinical correlation is essential. Performed By: #### M 100.2200 #### [facility] [address] [place], [address] ECRCL 34.00 ml/min Normal [facility] Comment on above: Order Comment: REDRA W. PREVIOUS SPECIMEN REJECTED DUE TOHEMOLYSIS. 07/29/23 0910 Julissa Mills. Performed By: #### M 100.2200 #### [facility] [address] [place], [address] EST GFR - AA 48 mL/min Low >60 [facility] Comment on above: Order Comment: REDRA W. PREVIOUS SPECIMEN REJECTED DUE TOHEMOLYSIS. 07/29/23 0910 Julissa Mills. Result Comment: Afri can [place] GFR Calc Performed By: #### M 100.2200 #### [facility] [address] [place], [address] GAP 10 Normal 5-15 [facility] Comment on above: Order Comment: REDRA W. PREVIOUS SPECIMEN REJECTED DUE TOHEMOLYSIS. 07/29/23 0910 Julissa Mills. Performed By: #### M 100.2200 #### [facility] [address] [place], [address] GFR/1.73 sq M.predicted among non-blacks MDRD (S/P/Bld) [Vol rate/Area] 40 mL/min/{1.73_m2} Low >60 [facility] Comment on above: Order Comment: REDRA W. PREVIOUS SPECIMEN REJECTED DUE TOHEMOLYSIS. 07/29/23Kelly Mills. Result Comment: Non- GFR Calc Performed By: #### M 100.2200 #### [facility] [address] [place], [address] Glucose [Mass/Vol] 110 mg/dL High 74-106 [facility] Comment on above: Order Comment: REDRA W. PREVIOUS SPECIMEN REJECTED DUE TOHEMOLYSIS. 07/29/23909 Julissa Mills. Result Comment: Fast ing Glucose result from 100 to 125 mg/dL suggests IMPAIRED HOMEOSTASIS per A.D.A. criteria. Performed By: #### M 100.2200 #### [facility] [address] [place], [address] Potassium [Moles/Vol] 3.6 mmol/L Normal 3.5-5.1 [facility] Comment on above: Order Comment: REDRA W. PREVIOUS SPECIMEN REJECTED DUE TOHEMOLYSIS. 07/29/23909 Julissa Mills. Performed By: #### M 100.2200 #### [facility] [address] [place], [address] Sodium [Moles/Vol] 136 mmol/L Normal 136-145 [facility] Comment on above: Order Comment: REDRA W. PREVIOUS SPECIMEN REJECTED DUE TOHEMOLYSIS. 07/29/23Kelly Mills. Performed By: #### M 100.2200 #### [facility] [address] [place], [address] Urea nitrogen [Mass/Vol] 15 mg/dL Normal 7-18 [facility] Comment on above: Order Comment: REDRA W. PREVIOUS SPECIMEN REJECTED DUE TOHEMOLYSIS. 07/29/23909 Julissa Mills. Performed By: #### M 100.2200 #### [facility] [address] [place], [address] BUN Normal 7-18 [facility] Comment on above: Result Comment: This specimen has been REJECTED due to Laboratory criteria: Hemolyzed. VIDA has been notified of need of recollection. 07/29/23 Julissa Wolfhope Performed By: #### L 100.0100, L500.2500, L500.3400 #### [facility] [address] [place], [address] BUN/CRE Normal 10-20 [facility] Comment on above: Result Comment: This specimen has been REJECTED due to Laboratory criteria: Hemolyzed. VIDA has been notified of need of recollection. 07/29/23 Julissa Wolfhope Performed By: #### L 100.0100, L500.2500, L500.3400 #### [facility] [address] [place], [address] CA,Total Normal 8.5-10.1 [facility] Comment on above: Result Comment: This specimen has been REJECTED due to Laboratory criteria: Hemolyzed. VIDA has been notified of need of recollection. 07/29/23 Julissa Wolfhope Performed By: #### L 100.0100, L500.2500, L500.3400 #### [facility] [address] [place], [address] CL Normal 98-107 [facility] Comment on above: Result Comment: This specimen has been REJECTED due to Laboratory criteria: Hemolyzed. VIDA has been notified of need of recollection. 07/29/23 Julissa Wolfhope Performed By: #### L 100.0100, L500.2500, L500.3400 #### [facility] [address] [place], [address] CO2 Normal 21.0-32.0 [facility] Comment on above: Result Comment: This specimen has been REJECTED due to Laboratory criteria: Hemolyzed. VIDA has been notified of need of recollection. 07/29/23 Julissa Wolfhope Performed By: #### L 100.0100, L500.2500, L500.3400 #### [facility] [address] [place], [address] CREAT,SERUM Normal 0.55-1.02 [facility] Comment on above: Result Comment: This specimen has been REJECTED due to Laboratory criteria: Hemolyzed. VIDA has been notified of need of recollection. 07/29/23 09 Julissa Mosshope Performed By: #### L 100.0100, L500.2500, L500.3400 #### [facility] [address] [place], [address] EST GFR Normal >60 [facility] Comment on above: Result Comment: This specimen has been REJECTED due to Laboratory criteria: Hemolyzed. VIDA has been notified of need of recollection. 07/29/23 Julissa Nolane Performed By: #### L 100.0100, L500.2500, L500.3400 #### [facility] [address] [place], [address] EST GFR - AA Normal >60 [facility] Comment on above: Result Comment: This specimen has been REJECTED due to Laboratory criteria: Hemolyzed. VIDA has been notified of need of recollection. 07/29/23 Julissa Nolane Performed By: #### L 100.0100, L500.2500, L500.3400 #### [facility] [address] [place], [address] GAP Normal 5-15 [facility] Comment on above: Result Comment: This specimen has been REJECTED due to Laboratory criteria: Hemolyzed. VIDA has been notified of need of recollection. 07/29/23 Julissa Nolane Performed By: #### L 100.0100, L500.2500, L500.3400 #### [facility] [address] [place], [address] GLU Normal 74-106 [facility] Comment on above: Result Comment: This specimen has been REJECTED due to Laboratory criteria: Hemolyzed. VIDA has been notified of need of recollection. 07/29/23 0907 Julissa Nolane Performed By: #### L 100.0100, L500.2500, L500.3400 #### [facility] [address] [place], [address] Potassium Normal 3.5-5.1 [facility] Comment on above: Result Comment: This specimen has been REJECTED due to Laboratory criteria: Hemolyzed. VIDA has been notified of need of recollection. 07/29/23 09 Julissa Nolane Performed By: #### L 100.0100, L500.2500, L500.3400 #### [facility] [address] [place], [address] Basic Metabolic Profile (BMP) Normal 136-145 [facility] Comment on above: Result Comment: This specimen has been REJECTED due to Laboratory criteria: Hemolyzed. VIDA has been notified of need of recollection. 07/29/23 0907 Julissa Nolane Performed By: #### L 100.0100, L500.2500, L500.3400 #### [facility] [address] [place], [address] CBC W/Diff, Automatedon 07-15 Absolute Lymph 2.32 X10 3/uL Normal 0.83-4.51 [facility] Comment on above: Performed By: #### L 100.0100, L500.2500, L500.3400 #### [facility] [address] [place], [address] Absolute Neut 8.1 X10 3/uL High 2.0-7.7 [facility] Comment on above: Performed By: #### L 100.0100, L500.2500, L500.3400 #### [facility] [address] [place], [address] Basophils/100 WBC (Bld) 0.4 % Normal 0-1 [facility] Comment on above: Performed By: #### L 100.0100, L500.2500, L500.3400 #### [facility] [address] [place], [address] Eosinophils/100 WBC (Bld) 1.4 % Normal 0-5 [facility] Comment on above: Performed By: #### L 100.0100, L500.2500, L500.3400 #### [facility] [address] [place], [address] Erythrocyte distribution width (RBC) [Ratio] 16.6 % High 11.6-14.6 [facility] Comment on above: Performed By: #### L 100.0100, L500.2500, L500.3400 #### [facility] [address] [place], [address] Hematocrit (Bld) [Volume fraction] 51.3 % High 37-47 [facility] Comment on above: Performed By: #### L 100.0100, L500.2500, L500.3400 #### [facility] [address] [place], [address] Hemoglobin (Bld) [Mass/Vol] 16.5 g/dL High 12.0-15.0 [facility] Comment on above: Performed By: #### L 100.0100, L500.2500, L500.3400 #### [facility] [address] [place], [address] IG% 0.600 Normal 0.0-0.9 [facility] Comment on above: Result Comment: IG% - Immature Granulocytes (promyelocytes, myelocytes and metamyelocytes) > 1% indicates that a LEFT SHIFT is Present. Performed By: #### L 100.0100, L500.2500, L500.3400 #### [facility] [address] [place], [address] Lymphocytes/100 WBC (Bld) 20.5 % Normal 19-41 [facility] Comment on above: Performed By: #### L 100.0100, L500.2500, L500.3400 #### [facility] [address] [place], [address] MCH (RBC) [Entitic mass] 27.7 pg Normal 27.0-32.0 [facility] Comment on above: Performed By: #### L 100.0100, L500.2500, L500.3400 #### [facility] [address] [place], [address] MCHC (RBC) [Mass/Vol] 32.2 g/dL Normal 32-36 [facility] Comment on above: Performed By: #### L 100.0100, L500.2500, L500.3400 #### [facility] [address] [place], [address] MCV (RBC) [Entitic vol] 86.2 fL Normal 81-99 [facility] Comment on above: Performed By: #### L 100.0100, L500.2500, L500.3400 #### [facility] [address] [place], [address] Monocytes/100 WBC (Bld) 5.2 % Normal 0-10 [facility] Comment on above: Performed By: #### L 100.0100, L500.2500, L500.3400 #### [facility] [address] [place], [address] Neutrophils/100 WBC (Bld) 71.9 % High 47-70 [facility] Comment on above: Performed By: #### L 100.0100, L500.2500, L500.3400 #### [facility] [address] [place], [address] Nucleated RBC (Bld) [#/Vol] 0 10*3/uL Normal 0-5 [facility] Comment on above: Performed By: #### L 100.0100, L500.2500, L500.3400 #### [facility] [address] [place], [address] Platelet mean volume (Bld) [Entitic vol] 10.3 fL Normal 6.2-12.0 [facility] Comment on above: Performed By: #### L 100.0100, L500.2500, L500.3400 #### [facility] [address] [place], [address] Platelets (Bld) [#/Vol] 232 10*3/uL Normal 150-450 [facility] Comment on above: Performed By: #### L 100.0100, L500.2500, L500.3400 #### [facility] [address] [place], [address] RBC (Bld) [#/Vol] 5.95 10*6/uL High 4.2-5.4 [facility] Comment on above: Performed By: #### L 100.0100, L500.2500, L500.3400 #### [facility] [address] [place], [address] RDW SD 51.0 fl High 35.1-43.9 [facility] Comment on above: Performed By: #### L 100.0100, L500.2500, L500.3400 #### [facility] [address] [place], [address] WBC (Bld) [#/Vol] 11.3 10*3/uL High 4.4-11.0 [facility] Comment on above: Performed By: #### L 100.0100, L500.2500, L500.3400 #### [facility] [address] [place], [address] Emergency Department Summary on 07-29-2023 Emergency Department Summary [facility] Medical Records Department [address] [place] [address] Emergency Department Summary 07/29/23 MR#: [id number] Acct: [id number] Name: JONELLE CORONADO Rep #: [id number] : 1955 67 From: Shaun Hendricks DO PCP: HERSON Matthews Status:DEP ER Location: ED HPI HPI - GI History of Present Illness Chief Complaint: Abd Pain Informant: patient Narrative Narrative: 67-year-old female presented to the emergency room with vomiting diarrhea and abdominal cramps. Patient states that on Tuesday evening she stopped and had a burrito at [facility]. During the night on Tuesday she developed vomiting and diarrhea which has persisted until today. She states that her cramps are in her abdomen and her back. Patient states that the diarrhea is yellow water. She denies any blood in the stool or emesis. Subjective fever yesterday. Patient states she feels dehydrated. No rashes. PFSH PFS Medical History Carotid stenosis Essential hypertension PAD (peripheral artery disease) Carotid stenosis, left Cardiomyopathy Hypokalemia Coronary artery disease Adrenal insufficiency Anxiety Aspiration pneumonia Healthcare associated bacterial pneumonia Debility Cardiogenic shock NSTEMI (non-ST elevated myocardial infarction) Tobacco use Chronic obstructive pulmonary disease (COPD) Ventricular tachycardia Torsades de pointes Cardiac arrest STEMI (ST elevation myocardial infarction) History of GI bleed Peripheral vascular insufficiency History of myocardial infarction Atherosclerotic heart disease of [place] coronary artery without angina pectoris Tobacco abuse Hypotension Left shoulder pain Squamous cell carcinoma of left lung Hyperlipidemia Home Medications ???Medication ???Instructions ???Recorded ???Last Taken ???Type hydrocortisone 10 mg tablet 20 mg PO .COMPLEX adrenal 02/04/21 04/29/23 History insufficiency escitalopram oxalate 20 mg tablet 20 mg PO DAILY mental health 06/30/22 04/29/23 History (Lexapro) nitroglycerin 0.4 mg sublingual 0.4 mg sublingual Q5-15M PRN chest 06/30/22 Unknown Rx tablet pain #25 tabs lorazepam 1 mg tablet (Ativan) 1.5 mg PO QHS anxiety 03/08/23 Unknown History aspirin 81 mg tablet,delayed 81 mg PO DAILY@0800 #100 tabs 04/29/23 Unknown Rx release empagliflozin 10 mg tablet 10 mg PO DAILY diabetes #30 tabs 05/02/23 Unknown Rx (Jardiance) evolocumab 140 mg/mL subcutaneous 140 mg subcut Q2W cholesterol #2 mL 05/02/23 Unknown Rx pen injector (Enriqueta Anna) sacubitril 24 mg-valsartan 26 mg 1 tab PO BID heart #180 tabs 05/06/23 Unknown Rx tablet (Entresto) ticagrelor 90 mg tablet 90 mg PO BID blood thinner #180 05/19/23 Unknown Rx tabs pantoprazole 40 mg tablet,delayed 40 mg PO DAILY reflux #30 tabs 06/23/23 Unknown Rx release (Protonix) metoprolol tartrate 25 mg tablet 25 mg PO BID blood pressure #180 07/18/23 Unknown Rx tabs Allergy/AdvReac Type Severity Reaction Status Date / Time acetaminophen (From Vicodin) Allergy Intermediate Itching Verified 07/29/23 07:57 atorvastatin AdvReac Severe Myalgias Verified 07/29/23 07:57 hydrocodone AdvReac Itching Verified 07/29/23 07:57 hydrocodone bitartrate (From AdvReac Itching Verified 07/29/23 07:57 Vicodin) oxycodone HCl (From Percocet) AdvReac Itching Verified 07/29/23 07:57 Family History Mother Heart disease Hypertension CVA (cerebral vascular accident) Surgical History Hx of tubal ligation Hx of appendectomy Presence of stent in coronary artery ( 04/29/23) Aortocoronary bypass status ( 09/24/13) Social History Smoking Status: Current every day smoker tobacco type: cigarettes quit status: considering quitting alcohol intake: never substance use type: does not use caffeine: Yes what type of physical activity do you participate in: none frequency: does not exercise ROS ROS ED Constitutional Constitutional ED: Reports chills, fever(s), subjective and sweats; Denies weight loss Eyes Eyes: Denies change in vision or diplopia ENT ENT ED: Denies ear pain, rhinorrhea or sore throat Cardiovascular Cardiovascular: Denies chest pain, orthopnea, palpitations or racing heartbeat Respiratory/Chest Respiratory/Chest: Denies cough, dyspnea or orthopnea Gastrointestinal Gastrointestinal: Reports abdominal pain, diarrhea, nausea and vomiting; Denies melena Genitourinary Genitourinary ED: Denies dysuria, hematuria or urinary frequency Musculoskeletal Musculoskeletal: Reports back pain; Denies arthralgias or myalgias Integumentary Denies abscess or rash Neurologi (more content not included)... Normal [facility] Lipaseon 07-29-2023 Lipase [Catalytic activity/Vol] 36 U/L Normal 13-75 [facility] Comment on above: Order Comment: REDRA W. PREVIOUS SPECIMEN REJECTED DUE TOHEMOLYSIS. 07/29/23 0910 Julissa Mills. Result Comment: Geneva patel note: LIPASE revised reference range effective 22. New Lipase methodology. Expected to produce lower values than the previous assay method. NEW Reference Range: 13 - 75 U/L Performed By: #### M 100.2200 #### [facility] [address] [place], [place], [address] Liver Profileon 07-29-2023 Albumin [Mass/Vol] 2.8 g/dL Low 3.2-5.0 [facility] Comment on above: Order Comment: REDRA W. PREVIOUS SPECIMEN REJECTED DUE TOHEMOLYSIS. 07/29/23 0910 Julissa Mills. Performed By: #### M 100.2200 #### [facility] [address] [place], [address] ALK P 72 U/L Normal 45-117 [facility] Comment on above: Order Comment: REDRA W. PREVIOUS SPECIMEN REJECTED DUE TOHEMOLYSIS. 07/29/23 0910 Julissa Mills. Performed By: #### M 100.2200 #### [facility] [address] [place], [address] ALT [Catalytic activity/Vol] 26 U/L Normal 13-56 [facility] Comment on above: Order Comment: REDRA W. PREVIOUS SPECIMEN REJECTED DUE TOHEMOLYSIS. 07/29/23Kelly Milsl. Performed By: #### M 100.2200 #### [facility] [address] [place], [address] AST [Catalytic activity/Vol] 23 U/L Normal 15-37 [facility] Comment on above: Order Comment: REDRA W. PREVIOUS SPECIMEN REJECTED DUE TOHEMOLYSIS. 07/29/23909 Julissa Mills. Performed By: #### M 100.2200 #### [facility] [address] [place], [address] Bilirubin [Mass/Vol] 0.40 mg/dL Normal 0.20-1.00 [facility] Comment on above: Order Comment: REDRA W. PREVIOUS SPECIMEN REJECTED DUE TOHEMOLYSIS. 07/29/23909 Julissa Mills. Result Comment: For patients on eltrombopag therapy, use of Dimension [place] TBIL is not recommended. Performed By: #### M 100.2200 #### [facility] [address] [place], [address] Bilirubin.direct [Mass/Vol] 0.09 mg/dL Normal 0.00-0.30 [facility] Comment on above: Order Comment: REDRA W. PREVIOUS SPECIMEN REJECTED DUE TOHEMOLYSIS. 07/29/23909 Julissa Mills. Performed By: #### M 100.2200 #### [facility] [address] [place], [address] Globulin (S) [Mass/Vol] 4.1 g/dL Normal 2.2-4.2 [facility] Comment on above: Order Comment: REDRA W. PREVIOUS SPECIMEN REJECTED DUE TOHEMOLYSIS. 07/29/23909 Julissa Mills. Performed By: #### M 100.2200 #### [facility] [address] [place], [address] T PROT 6.9 g/dL Normal 6.4-8.2 [facility] Comment on above: Order Comment: RED W. PREVIOUS SPECIMEN REJECTED DUE TOHEMOLYSIS. 07/29/23909 Julissa Mossmanuele. Performed By: #### M 100.2200 #### [facility] [address] [place], [address] ALB Normal 3.2-5.0 [facility] Comment on above: Result Comment: This specimen has been REJECTED due to Laboratory criteria: Hemolyzed. VIDA has been notified of need of recollection. 07/29/23906 Julissa Nolane Performed By: #### L 100.0100, L500.2500, L500.3400 #### [facility] [address] [place], [address] ALK P Normal 45-117 [facility] Comment on above: Result Comment: This specimen has been REJECTED due to Laboratory criteria: Hemolyzed. VIDA has been notified of need of recollection. 07/29/23906 Julissa Nolane Performed By: #### L 100.0100, L500.2500, L500.3400 #### [facility] [address] [place], [address] ALT Normal 13-56 [facility] Comment on above: Result Comment: This specimen has been REJECTED due to Laboratory criteria: Hemolyzed. VIDA has been notified of need of recollection. 07/29/23906 Julissa Nolane Performed By: #### L 100.0100, L500.2500, L500.3400 #### [facility] [address] [place], [address] AST Normal 15-37 [facility] Comment on above: Result Comment: This specimen has been REJECTED due to Laboratory criteria: Hemolyzed. VIDA has been notified of need of recollection. 07/29/23906 Julissa Nolane Performed By: #### L 100.0100, L500.2500, L500.3400 #### [facility] [address] [place], [address] D BILI Normal 0.00-0.30 [facility] Comment on above: Result Comment: This specimen has been REJECTED due to Laboratory criteria: Hemolyzed. VIDA has been notified of need of recollection. 07/29/23906 Julissa Nolane Performed By: #### L 100.0100, L500.2500, L500.3400 #### [facility] [address] [place], [address] T BILI Normal 0.20-1.00 [facility] Comment on above: Result Comment: This specimen has been REJECTED due to Laboratory criteria: Hemolyzed. VIDA has been notified of need of recollection. 07/29/23906 Julissa Nolane Performed By: #### L 100.0100, L500.2500, L500.3400 #### [facility] [address] [place], [address] T PROT Normal 6.4-8.2 [facility] Comment on above: Result Comment: This specimen has been REJECTED due to Laboratory criteria: Hemolyzed. VIDA has been notified of need of recollection. 07/29/23906 Julissa Mills Performed By: #### L 100.0100, L500.2500, L500.3400 #### [facility] [address] [place], [address] CT CHEST WO IVCONon 07-27-19 CT CHEST WO IVCON * * *Final Report* * * DATE OF EXAM: Jul 27 2023 10:40AM [facility] 0541 - CT CHEST WO IVCON / PROCEDURE REASON: Malignant neoplasm of unspecified part of unspecified bronchus or lung (HCC) * * * * Physician Interpretation * * * * EXAMINATION: CHEST CT WITHOUT CONTRAST CLINICAL HISTORY: Non-small cell lung cancer follow-up. Technique: Spiral CT acquisition of the chest from the thoracic inlet to the upper abdomen without contrast. MQ: [id number]_6 CT Radiation dose: Integrated Dose-length product (DLP) for this visit = 180 mGy*cm CT Dose Reduction Employed: Automated exposure control(AEC) and iterative recon Comparison: 07/13/2022 RESULT: Limitations: None. Lines, tubes, and devices: None. Lung parenchyma and airways: Unchanged 1.2 cm spiculated nodule in the LEFT apex on series 7 image 26. Additional 2-3 mm scattered pulmonary nodules are unchanged. No appreciable new or enlarging pulmonary nodules. Moderate centrilobular emphysema. Pleural space: No pleural effusion. No pleural thickening. Lower neck, lymph nodes, and mediastinum: The imaged thyroid gland is normal. No lymphadenopathy in the supraclavicular, axillary, mediastinal, or hilar regions. Heart, pericardium, and thoracic vessels: Postsurgical changes of median sternotomy and aortocoronary bypass. No pericardial effusion. Bones and soft tissues: No destructive bone lesion. Upper abdomen: No abnormality in the imaged upper abdomen. Localizer images: No additional findings. IMPRESSION: 1. Stable spiculated nodule in the LEFT apex. Additional scattered micronodules are unchanged. 2. No lymphadenopathy. 3. Moderate centrilobular emphysema. Diamond Sizer And Grader: PHILIPPE Transcribe Date/Time: Aug 01 2023 11:35A Dictated by : SARAH RASMUSSEN MD This examination was interpreted and the report reviewed and electronically signed by: SARAH RASMUSSEN MD on Aug 01 2023 11:40AM EST [id number] Normal [facility] Urine Cultureon 06-09-2023 URC Presumptive E. coli [place] Count 25,000-50,000 Presumptive E. coli: REACTION Ampicillin Islt MILDRED 16 I Ampicillin+Sulbac Islt MILDRED 4 S ceFAZolin Islt MILDRED <=4 S Cefepime Islt MILDRED <=0.12 S cefTRIAXone Islt MILDRED <=0.25 S Ciprofloxacin Islt MILDRED 1 S Ertapenem Islt MILDRED <=0.12 S B-Lactamase Extended Susc Islt NEG Gentamicin Islt MILDRED <=1 S Imipenem Islt MILDRED <=0.25 S levoFLOXacin Islt MILDRED 1 S Nitrofurantoin Islt MILDRED <=16 S Pip+Tazo Islt MILDRED <=4 S Tobramycin Islt MILDRED <=1 S TMP SMX Islt MILDRED <=20 S Normal [facility] Comment on above: Performed By: #### M 100.2200 #### [facility] [address] [place], [address] Culture, urineOrdered By: Ra vikas Stafford on 06-07-2023 Bacteria identified Cx Nom (U) Presumptive E. coli [facility] CTA Chest W/WO Contraston CTA Chest W/WO Contrast [facility] [address] [place] [address] CTA Chest W/WO Contrast MR#: [id number] Acct: [id number] Name: JONELLE CORONADO Rep #: [id number] : 1955 F 67 From: Philippe patten MD PCP: JANICE MatthewsC Status: REG CLI Study: CTA Chest W/WO Contrast Date of Exam: 06/06/23 Exam# [id number] Ordering Dr: Karime Roblero NP CLINICAL LAB CLERK- C [id number] STUDY: CTA CHEST REASON FOR EXAM: Female, 67 years old. Elevated d-dimer. Stage IV lung carcinoma with metastasis. RADIATION DOSAGE (If Supplied By Facility): CTDIvol = ( 3.02 ) mGy, DLP = ( 98.55 ) mGycm TECHNIQUE: The examination was performed with the intravenous administration of IV 100mL Isovue-370. Post-processing of the angiographic images was performed, with multiplanar reformation and 3D reconstruction. Individualized dose optimization techniques were used for this CT. COMPARISON: Comparison is made with prior study dated February 04, 2023. FINDINGS: Normal enhancement of the main pulmonary artery and right and left pulmonary arteries. Normal enhancement of the bilateral peripheral pulmonary arteries. There is no demonstrated pulmonary embolism. Normal thoracic aorta and visualized great vessels. There is no demonstrated aortic dissection. Sternal cerclage wires and vascular clips are present from a prior sternotomy and coronary artery bypass graft procedure (CABG). There are calcifications of the coronary arteries. Normal mediastinum. Normal hilar regions. Normal visualized trachea and bronchi. The lungs are well expanded. Stable 4.7 mm x 4.4 mm spicular nodule in the posterior aspect of the left upper lobe. Stable emphysematous changes more prominent in the upper lobes with evidence of centrilobular emphysema. Stable mild degree of bronchiectasis with tree-in-bud nodular opacities in the left upper lobe.. Normal pleura. Normal chest wall structures. There are mild degenerative changes of thoracic spine. Normal visualized upper abdomen. CT/CTA Chest W/WO Contrast IMPRESSION: Stable examination. No evidence of pulmonary embolism. Electronically Signed: Philippe Herrera MD at 13:37 EDT Reading Location ID and State: [facility] / [place] , Service support , CC: HERSON Roblero; HERSON Stafford Diamond Sizer And Grader: Signed Normal [facility] Absolute lymphocyte countOrd ered By: Karime Roblero on 05-19-2023 Lymphocytes Auto (Unsp spec) [#/Vol] 2.04 10*3/uL 0.83-4.51 [facility] Automated lymphocyte count a s percentage of total leukocytesOrdered By: Karime Roblero on 05-19-2023 Lymphocytes/100 WBC Auto (Unsp spec) 17.8 % 19-41 [facility] BNP,B-Type NATRIURETIC PEPTI [place] 05-19-2023 Natriuretic peptide B (Bld) [Mass/Vol] 98.3 pg/mL Normal 0-100 [facility] Comment on above: Order Comment: PER P T ONLY TO TO BW DATED FOR TODAY Performed By: #### L 500.2500, L503.6620, L100.0100, L300.8000 #### [facility] [address] [place], [address] Basic Metabolic Profile (BMP )on 05-19-2023 BUN/CRE 18.4 RATIO Normal 10-20 [facility] Comment on above: Order Comment: PER P T ONLY TO TO BW DATED FOR TODAY Performed By: #### L 500.2500, L503.6620, L100.0100, L300.8000 #### [facility] [address] [place], [address] [place],Total 9.4 mg/dL Normal 8.5-10.1 [facility] Comment on above: Order Comment: PER P T ONLY TO TO BW DATED FOR TODAY Performed By: #### L 500.2500, L503.6620, L100.0100, L300.8000 #### [facility] [address] [place], [address] Chloride [Moles/Vol] 109 mmol/L High 98-107 [facility] Comment on above: Order Comment: PER P T ONLY TO TO BW DATED FOR TODAY Performed By: #### L 500.2500, L503.6620, L100.0100, L300.8000 #### [facility] [address] [place], [address] CO2 [Moles/Vol] 22.0 mmol/L Normal 21.0-32.0 [facility] Comment on above: Order Comment: PER P T ONLY TO TO BW DATED FOR TODAY Performed By: #### L 500.2500, L503.6620, L100.0100, L300.8000 #### [facility] [address] [place], [address] Creatinine [Mass/Vol] 0.87 mg/dL Normal 0.55-1.02 [facility] Comment on above: Order Comment: PER P T ONLY TO TO BW DATED FOR TODAY Result Comment: The validity of the calculated GFR GFRAA in patients over 70 years has not been determined. Clinical correlation is essential. Performed By: #### L 500.2500, L503.6620, L100.0100, L300.8000 #### [facility] [address] [place], [address] EST GFR - AA 83 mL/min Normal >60 [facility] Comment on above: Order Comment: PER P T ONLY TO TO BW DATED FOR TODAY Result Comment: Afri can [place] GFR Calc Performed By: #### L 500.2500, L503.6620, L100.0100, L300.8000 #### [facility] [address] [place], [address] GAP 5 Normal 5-15 [facility] Comment on above: Order Comment: PER P T ONLY TO TO BW DATED FOR TODAY Performed By: #### L 500.2500, L503.6620, L100.0100, L300.8000 #### [facility] [address] [place], [address] GFR/1.73 sq M.predicted among non-blacks MDRD (S/P/Bld) [Vol rate/Area] 69 mL/min/{1.73_m2} Normal >60 [facility] Comment on above: Order Comment: PER P T ONLY TO TO BW DATED FOR TODAY Result Comment: Non- GFR Calc Performed By: #### L 500.2500, L503.6620, L100.0100, L300.8000 #### [facility] [address] [place], [address] Glucose [Mass/Vol] 99 mg/dL Normal 74-106 [facility] Comment on above: Order Comment: PER P T ONLY TO TO BW DATED FOR TODAY Performed By: #### L 500.2500, L503.6620, L100.0100, L300.8000 #### [facility] [address] [place], [address] Potassium [Moles/Vol] 4.1 mmol/L Normal 3.5-5.1 [facility] Comment on above: Order Comment: PER P T ONLY TO TO BW DATED FOR TODAY Performed By: #### L 500.2500, L503.6620, L100.0100, L300.8000 #### [facility] [address] [place], [address] Sodium [Moles/Vol] 136 mmol/L Normal 136-145 [facility] Comment on above: Order Comment: PER P T ONLY TO TO BW DATED FOR TODAY Performed By: #### L 500.2500, L503.6620, L100.0100, L300.8000 #### [facility] [address] [place], [address] Urea nitrogen [Mass/Vol] 16 mg/dL Normal 7-18 [facility] Comment on above: Order Comment: PER P T ONLY TO TO BW DATED FOR TODAY Performed By: #### L 500.2500, L503.6620, L100.0100, L300.8000 #### [facility] [address] [place], [address] Basophil percentageOrdered B y: Karime Roblero on 05-19-2023 Basophil percentage 15.1 g/dL 12.0-15.0 [facility] Basophil percentage 99 mg/dL 74-106 [facility] Basophil percentage 136 mmol/L 136-145 [facility] Basophil percentage 4.1 mmol/L 3.5-5.1 [facility] Basophil percentage 109 mmol/L 98-107 [facility] Basophils (Bld) [#/Vol] 11.4 10*3/uL 4.4-11.0 [facility] Basophils (Bld) [#/Vol] 8.3 10*3/uL 2.0-7.7 [facility] Basophils/100 WBC (Bld) 72.6 % 47-70 [facility] Basophils/100 WBC (Bld) 6.9 % 0-10 [facility] Basophils/100 WBC (Bld) 1.5 % 0-5 [facility] Basophils/100 WBC (Bld) 0.8 % 0-1 [facility] Chloride [Moles/Vol] 109 mmol/L 98-107 [facility] Eosinophils/100 WBC (Bld) 1.5 % 0-5 [facility] Glucose [Mass/Vol] 99 mg/dL 74-106 [facility] Hemoglobin (Bld) [Mass/Vol] 15.1 g/dL 12.0-15.0 [facility] Monocytes/100 WBC (Bld) 6.9 % 0-10 [facility] Neutrophils (Bld) [#/Vol] 8.3 10*3/uL 2.0-7.7 [facility] Neutrophils/100 WBC (Bld) 72.6 % 47-70 [facility] Potassium [Moles/Vol] 4.1 mmol/L 3.5-5.1 [facility] Sodium [Moles/Vol] 136 mmol/L 136-145 [facility] WBC (Bld) [#/Vol] 11.4 10*3/uL 4.4-11.0 [facility] CBC W/Diff, Automatedon 04-0 -2023 Absolute Lymph 2.04 X10 3/uL Normal 0.83-4.51 [facility] Comment on above: Order Comment: PER P T ONLY TO TO BW DATED FOR TODAY Performed By: #### L 500.2500, L503.6620, L100.0100, L300.8000 #### [facility] [address] [place], [address] Absolute Neut 8.3 X10 3/uL High 2.0-7.7 [facility] Comment on above: Order Comment: PER P T ONLY TO TO BW DATED FOR TODAY Performed By: #### L 500.2500, L503.6620, L100.0100, L300.8000 #### [facility] [address] [place], [address] Basophils/100 WBC (Bld) 0.8 % Normal 0-1 [facility] Comment on above: Order Comment: PER P T ONLY TO TO BW DATED FOR TODAY Performed By: #### L 500.2500, L503.6620, L100.0100, L300.8000 #### [facility] [address] [place], [address] Eosinophils/100 WBC (Bld) 1.5 % Normal 0-5 [facility] Comment on above: Order Comment: PER P T ONLY TO TO BW DATED FOR TODAY Performed By: #### L 500.2500, L503.6620, L100.0100, L300.8000 #### [facility] [address] [place], [address] Erythrocyte distribution width (RBC) [Ratio] 14.4 % Normal 11.6-14.6 [facility] Comment on above: Order Comment: PER P T ONLY TO TO BW DATED FOR TODAY Performed By: #### L 500.2500, L503.6620, L100.0100, L300.8000 #### [facility] [address] [place], [address] Hematocrit (Bld) [Volume fraction] 49.2 % High 37-47 [facility] Comment on above: Order Comment: PER P T ONLY TO TO BW DATED FOR TODAY Performed By: #### L 500.2500, L503.6620, L100.0100, L300.8000 #### [facility] [address] [place], [address] Hemoglobin (Bld) [Mass/Vol] 15.1 g/dL High 12.0-15.0 [facility] Comment on above: Order Comment: PER P T ONLY TO TO BW DATED FOR TODAY Performed By: #### L 500.2500, L503.6620, L100.0100, L300.8000 #### [facility] [address] [place], [address] IG% 0.400 Normal 0.0-0.9 [facility] Comment on above: Order Comment: PER P T ONLY TO TO BW DATED FOR TODAY Result Comment: IG% - Immature Granulocytes (promyelocytes, myelocytes and metamyelocytes) > 1% indicates that a LEFT SHIFT is Present. Performed By: #### L 500.2500, L503.6620, L100.0100, L300.8000 #### [facility] [address] [place], [address] Lymphocytes/100 WBC (Bld) 17.8 % Low 19-41 [facility] Comment on above: Order Comment: PER P T ONLY TO TO BW DATED FOR TODAY Performed By: #### L 500.2500, L503.6620, L100.0100, L300.8000 #### [facility] [address] [place], [address] MCH (RBC) [Entitic mass] 27.6 pg Normal 27.0-32.0 [facility] Comment on above: Order Comment: PER P T ONLY TO TO BW DATED FOR TODAY Performed By: #### L 500.2500, L503.6620, L100.0100, L300.8000 #### [facility] [address] [place], [address] MCHC (RBC) [Mass/Vol] 30.7 g/dL Low 32-36 [facility] Comment on above: Order Comment: PER P T ONLY TO TO BW DATED FOR TODAY Performed By: #### L 500.2500, L503.6620, L100.0100, L300.8000 #### [facility] [address] [place], [address] MCV (RBC) [Entitic vol] 89.9 fL Normal 81-99 [facility] Comment on above: Order Comment: PER P T ONLY TO TO BW DATED FOR TODAY Performed By: #### L 500.2500, L503.6620, L100.0100, L300.8000 #### [facility] [address] [place], [address] Monocytes/100 WBC (Bld) 6.9 % Normal 0-10 [facility] Comment on above: Order Comment: PER P T ONLY TO TO BW DATED FOR TODAY Performed By: #### L 500.2500, L503.6620, L100.0100, L300.8000 #### [facility] [address] [place], [address] Neutrophils/100 WBC (Bld) 72.6 % High 47-70 [facility] Comment on above: Order Comment: PER P T ONLY TO TO BW DATED FOR TODAY Performed By: #### L 500.2500, L503.6620, L100.0100, L300.8000 #### [facility] [address] [place], [address] Nucleated RBC (Bld) [#/Vol] 0 10*3/uL Normal 0-5 [facility] Comment on above: Order Comment: PER P T ONLY TO TO BW DATED FOR TODAY Performed By: #### L 500.2500, L503.6620, L100.0100, L300.8000 #### [facility] [address] [place], [address] Platelet mean volume (Bld) [Entitic vol] 10.2 fL Normal 6.2-12.0 [facility] Comment on above: Order Comment: PER P T ONLY TO TO BW DATED FOR TODAY Performed By: #### L 500.2500, L503.6620, L100.0100, L300.8000 #### [facility] [address] [place], [address] Platelets (Bld) [#/Vol] 279 10*3/uL Normal 150-450 [facility] Comment on above: Order Comment: PER P T ONLY TO TO BW DATED FOR TODAY Performed By: #### L 500.2500, L503.6620, L100.0100, L300.8000 #### [facility] [address] [place], [address] RBC (Bld) [#/Vol] 5.47 10*6/uL High 4.2-5.4 [facility] Comment on above: Order Comment: PER P T ONLY TO TO BW DATED FOR TODAY Performed By: #### L 500.2500, L503.6620, L100.0100, L300.8000 #### [facility] [address] [place], [address] RDW SD 47.7 fl High 35.1-43.9 [facility] Comment on above: Order Comment: PER P T ONLY TO TO BW DATED FOR TODAY Performed By: #### L 500.2500, L503.6620, L100.0100, L300.8000 #### [facility] [address] [place], [address] WBC (Bld) [#/Vol] 11.4 10*3/uL High 4.4-11.0 [facility] Comment on above: Order Comment: PER P T ONLY TO TO BW DATED FOR TODAY Performed By: #### L 500.2500, L503.6620, L100.0100, L300.8000 #### [facility] [address] [place], [address] Cardiology Visit Reporton Cardiology Visit Report [facility] [address] [place] [address] OFFICE VISIT Date of Service: 05/19/23 MR#: [id number] Acct: [id number] Name: JONELLE CORONADO Rep #: [id number] : 1955 Provider: HERSON hu Age/Sex: 67/F Location: [facility] Status: Signed HPI HPI History of Present Illness Details: This is a 67-year-old white female who presents today for outpatient cardiovascular follow-up visit. She has a history of CAD, PCI, CABG, ischemic mediated cardiomyopathy, cardiac dysrhythmia/torsade de pointes, peripheral artery disease, hyperlipidemia, and hypertension. She presented to [facility] on 02/04/23 for increased SOB. She was diagnosed with RSV on 02/03/2023. She was admitted with Sepsis, Acute respiratory failure, UTI. She was admitted to ICU on Bipap. She did have an elevated DDimer. CTA was negative for PE. She was also noted to have an elevated troponin, this trended 128/2716. He echocardiogram on 02/04/23 demonstrated an ejection fraction of 10-15%. Her echocardiogram from 04/11/2023 demonstrated an improved ejection fraction of 50%. She did undergo a stress test on 04/14/2023 which was abnormal, and underwent a cardiac catheterization on 05/03/2023. She underwent a successful ELIE distal SVG to OM into [place] OM. From a cardiac standpoint, the patient is doing well. She denies any palpitations, chest pain, pressure or heaviness. She does acknowledge SOB with exertion-this is worsening. She denies Orthopnea, and PND. She does wear 2L of oxygen at night. She does not have bleeding issues; no blood in urine, stool or nosebleeds. She denies any decrease in energy level, myalgias, or claudication. She does acknowledge claudication since stopping cilostazol. She does not have edema, or sudden weight gain. She does acknowledge occasional lightheadedness. She denies dizziness, syncopal or near syncopal episodes, and headaches. Intake Vital Signs 03/08/23 10:28 04/29/23 14:07 05/19/23 11:30 05/19/23 11:32 Height 5 ft 2 in 5 ft 3 in 5 ft 3 in 5 ft 3 in Weight: 126 lb BMI 22.3 BP 108/72 Blood Pressure Location Lt brachial Position Sitting Respiration 18 Pulse 71 Pulse Source Monitor Pulse Oximetry (%) 95 Intake Visit Reasons: S/P [facility] 04/28 Recovery Agent Required: No Is patient in pain?: No Allergies acetaminophen [From Vicodin] Allergy (Intermediate, Verified 05/19/23 12:59) Itching atorvastatin Adverse Reaction (Severe, Verified 05/19/23 12:59) Myalgias hydrocodone Adverse Reaction (Verified 05/19/23 12:59) Itching hydrocodone bitartrate [From Vicodin] Adverse Reaction (Verified 05/19/23 12:59) Itching oxycodone HCl [From Percocet] Adverse Reaction (Verified 05/19/23 12:59) Itching Medications hydrocortisone 10 mg tablet 20 mg PO .COMPLEX adrenal insufficiency 02/04/21 [History Confirmed 05/19/23] escitalopram oxalate 20 mg tablet (Lexapro) 20 mg PO DAILY mental health 06/30/22 [History Confirmed 05/19/23] nitroglycerin 0.4 mg sublingual tablet 0.4 mg sublingual Q5-15M PRN chest pain #25 tabs 06/30/22 [Rx Confirmed 05/19/23] pantoprazole 40 mg tablet,delayed release (Protonix) 40 mg PO DAILY reflux #30 tabs 02/11/23 [Rx Confirmed 05/19/23] lorazepam 1 mg tablet (Ativan) 1.5 mg PO QHS anxiety 03/08/23 [History Confirmed 05/19/23] metoprolol tartrate 25 mg tablet 25 mg PO BID blood pressure #180 tabs 04/19/23 [Rx Confirmed 05/19/23] aspirin 81 mg tablet,delayed release 81 mg PO DAILY@0800 #100 tabs 04/29/23 [Rx Confirmed 05/19/23] empagliflozin 10 mg tablet (Jardiance) 10 mg PO DAILY diabetes #30 tabs 05/02/23 [Rx Confirmed 05/19/23] evolocumab 140 mg/mL subcutaneous pen injector (Repatha VayusaClick) 140 mg subcut Q2W cholesterol #2 mL 05/02/23 [Rx Confirmed 05/19/23] sacubitril 24 mg-valsartan 26 mg tablet (Entresto) 1 tab PO BID heart #180 tabs 05/06/23 [Rx Confirmed 05/19/23] ticagrelor 90 mg tablet 90 mg PO BID blood thinner #180 tabs 05/19/23 [Rx Confirmed 05/19/23] [facility] Medical History (Updated 05/19/23 @ 11:50 by Karime Roblero CLINICAL LAB CLERK, CLINICAL LAB CLERK-C) Adrenal insufficiency Anxiety Aspiration pneumonia Atherosclerotic heart disease of [place] coronary artery without angina pectoris Cardiac arrest Cardiogenic shock Cardiomyopathy Carotid stenosis Carotid stenosis, left Chronic obstructive pulmonary disease (COPD) Coronary artery disease Debility Essential hypertension Healthcare associated bacterial pneumonia History of GI bleed History of myocardial infarction Hyperlipidemia Hypokalemia Hypotension Left shoulder pain NSTEMI (non-ST elevated myocardial infarction) PAD (peripheral artery disease) Peripheral vascular insufficiency Squamous cell carcinoma of left lung STEMI (ST elevation myocardial infarction) Tobacco abuse Tobacco use Torsades de pointes Ventricular tachycardi (more content not included)... Normal [facility] Chest PA and Lateralon 05-18 Chest PA and Lateral [facility] Imaging Services [address] [place] [address] Chest PA and Lateral MR#: [id number] Acct: [id number] Name: JONELLE CORONADO Rep #: [id number] : 1955 F 67 From: Vishal Wolfe PCP: HERSON Matthews Status: REG CLI Study: Chest PA and Lateral Date of Exam: 05/19/23 Exam# [id number] Ordering Dr: Karime Roblero NP CLINICAL LAB CLERK- Janell [id number] INDICATION: GUERRA EXAMINATION/TECHNIQUE: X-RAY - XR Chest 2 Views COMPARISON: Prior study dated: 02/04/2023 FINDINGS: LINES/DEVICES: None. LUNGS: No consolidation, edema or effusion. No pneumothorax. MEDIASTINUM AND CARDIOVASCULAR STRUCTURES: Normal cardiac silhouette. Status post median sternotomy. Coronary calcifications. BONES AND SOFT TISSUES: Minimal dextroscoliosis. RAD/Chest PA and Lateral IMPRESSION: No radiographic evidence of acute cardiopulmonary disease. Electronically Signed: Vishal Thomason MD at 10:36 EDT , CC: HERSON Roblero; HERSON Stafford [employer] Sizer [employer] Grader: Signed Normal [facility] D-Dimer Quantitative (DVT/PE )on 05-19-2023 D-DIMER QUANT 0.80 FEU/ug/m Invalid Interpretation Code 0.27-0.49 [facility] Comment on above: Order Comment: PER P T ONLY TO TO BW DATED FOR TODAY Result Comment: D-Di santi ELEVATED (>0.49): Additional studies and clinical assessments are indicated to conclude diagnosis of: Deep Vein Thrombosis (DVT) or Pulmonary Embolism (PE) RESULTS CALLED TO CHAVA 05/19/23 133Hayes Marjorie Cortes. REPORT READ BACK BY CHAVA. Performed By: #### L 500.2500, L503.6620, L100.0100, L300.8000 #### [facility] [address] [place], [address] Determination of erythrocyte mean corpuscular volume (MCV)Ordered By: Karime Roblero on 05-19-2023 MCV (RBC) [Entitic vol] 89.9 fL 81-99 [facility] Erythrocyte distribution wid th ratioOrdered By: Karime Roblero on 05-19-2023 Erythrocyte distribution width (RBC) [Ratio] 14.4 % 11.6-14.6 [facility] Erythrocyte distribution wid th standard deviationOrdered By: Karime Roblero on 05-19-2023 Erythrocyte distribution width (RBC) [Entitic vol] 47.7 fL 35.1-43.9 [facility] Hematocrit Auto (Bld) [Volum e fraction]Ordered By: Karime Roblero on 05-19-2023 Hematocrit (Bld) [Volume fraction] 49.2 % 37-47 [facility] Immature granulocytes/100 WB C Auto (Bld)Ordered By: Karime Roblero on 05-19-2023 Immature granulocytes/100 WBC (Bld) 0.400 % 0.0-0.9 [facility] Comment on above: IG% - Immature Granu locytes (promyelocytes, myelocytes and metamyelocytes) > 1% indicates that a LEFT SHIFT is Present. Laboratory - Chemistry and C hemistry - challengeOrdered By: Karime Roblero on 05-19-2023 CO2 [Moles/Vol] 22.0 mmol/L 21.0-32.0 [facility] Natriuretic peptide B (Bld) [Mass/Vol] 98.3 pg/mL 0-100 [facility] Urea nitrogen/Creatinine [Mass ratio] 18.4 mg/mg 10-20 [facility] Laboratory - Hematology and Cell countsOrdered By: Karime Roblero on 05-19-2023 MCH (RBC) [Entitic mass] 27.6 pg 27.0-32.0 [facility] MCHC (RBC) [Mass/Vol] 30.7 g/dL 32-36 [facility] Nucleated RBC/100 WBC (Bld) [Ratio] 0 % 0-5 [facility] Platelet mean volume (Bld) [Entitic vol] 10.2 fL 6.2-12.0 [facility] Platelets (Bld) [#/Vol] 279 10*3/uL 150-450 [facility] No Panel InformationOrdered By: Karime Roblero on 05-19-2023 D-Dimer Quantitative (PE/DVT) 0.80 FEU/ug/m 0.27-0.49 [facility] Comment on above: D-Dimer ELEVATED (>0 .49): Additional studies and clinicalassessments are indicated to conclude diagnosis of:Deep Vein Thrombosis (DVT) or Pulmonary Embolism (PE)RESULTS CALLED TO CHAVA 05/19/23 Rickie Cortes.REPORT READ BACK BY CHAVA. Estimated GFR (MDRD) Amer 83 mL/min >60 [facility] Comment on above: GFR Calc Estimated GFR (MDRD) Non-Af Amer 69 mL/min >60 [facility] Comment on above: Non- GFR Calc 27.6 pg 27.0-32.0 [facility] 30.7 g/dL 32-36 [facility] 279 K/mm3 150-450 [facility] 10.2 fl 6.2-12.0 [facility] 0 % 0-5 [facility] 0.80 FEU/ug/m 0.27-0.49 [facility] 69 mL/min >60 [facility] 83 mL/min >60 [facility] 18.4 RATIO 10-20 [facility] 22.0 mmol/L 21.0-32.0 [facility] 98.3 pg/mL 0-100 [facility] RBC Auto (Bld) [#/Vol]Ordere d By: Karime Roblero on 05-19-2023 RBC (Bld) [#/Vol] 5.47 10*6/uL 4.2-5.4 [facility] Serum or plasma calcium marin urement (mass/volume)Ordered By: Karime Roblero on 05-19-2023 Calcium [Mass/Vol] 9.4 mg/dL 8.5-10.1 [facility] Serum or plasma creatinine m easurement (mass/volume)Ordered By: Karime Roblero on 05-19-2023 Creatinine [Mass/Vol] 0.87 mg/dL 0.55-1.02 [facility] Comment on above: The validity of the calculated GFR & GFRAA in patients over 70 years has not been determined. Clinical correlation is essential. Serum or plasma urea nitroge n measurement (mass/volume)Ordered By: Karime Roblero on 05-19-2023 Urea nitrogen [Mass/Vol] 16 mg/dL 7-18 [facility] Thin prep Papanicolaou smear with manual screeningOrdered By: Karime Roblero on 05-19-2023 Thin prep Papanicolaou smear with manual screening 5 5-15 [facility] 36on 05-06-2023 36 Letter sent. Normal [facility] 36 We have been unable to reach your patient to schedule their test. Test Name: carotid duplex 1st Attempt: unable to leave 04/25 2nd Attempt: unable to leave 05/05 [facility] Cardiac Cath Interventionon 05-03-2023 Cardiac Cath Intervention [facility] Imaging Services [address] [place] [address] Cardiac Cath Intervention MR#: [id number] Acct: [id number] Name: JONELLE CORONADO Rep #: [id number] : 1955 67 From: Eunice Sharma MD PCP: HERSON Matthews Status:DIS CLIFTON Patient Name: JONELLE CORONADO Study Date: 04/29/2023 Performing: Eunice Sharma MD Ht: 62 inches 157 cm : 1955 Wt: 140.2 lbs 63.5 kg Age: 67 Gender: female BSA: 1.64 PROCEDURE(S) PERFORMED IC14-([id number]/[id number])KATY T-ELIE AND/OR PTCA, SINGLE GRAFT DC03-([id number])LHC/COR/LV /CABG CLINICAL PROFILE AND CO-MORBIDITIES Indications: Stable Known CAD Heart Failure: None Stress/Imaging Stress Test w/SPECT MPI: Yes Result: Positive Intermediate Risk Stress Test with SPECT MPI: Positive Intermediate Risk CONCLUSIONS 100% Prox LAD; Free KENNY graft to LAD patent 100% Mid LCX; Previous stent to SVG to OM patent, 80% distal SVG to OM/[place] OM RCA DENSITOMETER READER known from before; SVG to RCA 100% LVEF 60% LVEDP 30 mm Hg Successful ELIE distal SVG to OM into [place] OM using [place] 2.5x12 mm, optimized proximally using 3.5 mm balloon RECOMMENDATIONS ASA Indefinitley Brilinta for at least 12 months DESCRIPTION OF PROCEDURE The patient arrived to the procedure lab. The risks and benefits of the procedure as well as a full description of our services here and lack of surgical backup were fully explained to the patient and/or their significant other prior to the catheterization. The Timeout was completed, verifying the correct patient and procedure. The patient's procedural site was prepped and draped in the usual fashion. Local anesthetic was given subcutaneously to right radial region with Lidocaine 2%. Using a modified Seldinger technique, arterial access was obtained via the right radial artery, a 6Fr sheath was inserted.. Left Coronary Artery selective angiography was performed in multiple views using a 5 Fr. 4.0 [place] catheter. Saphenous Vein graft to the OM 1 selective angiography was performed in multiple views using a 5 Fr. 4.0 [place] catheter. Saphenous Vein graft to the unknown artery (occluded graft) selective angiography was performed in single view using a 5 Fr. 4.0 [place] catheter. Free Left internal mammary artery graft to the LAD selective angiography was performed in multiple views using a 5 Fr. 4.0 [place] catheter. Left Ventriculography was performed in FERREIRA projection using a 5 Fr. Pigtail catheter. LV to AO pullback pressures were then recordedThe images were reviewed and options discussed. A decision was then made to proceed with an Intervention, IVUS or other adjunct procedure. LCB Guide catheter was inserted and engaged into the SVG to the OM 1. Runthrough Guide wire was advanced to the SVG to 1st OM. 2.5 x 12 [place] Drug Eluting stent was inserted. Drug Eluting stent was advanced across the lesion in the SVG to first obtuse marginal, distal anastomosis Angiogram performed post stent deployment. 3.5 x 6 NC Euphora Balloon catheter was inserted post stent. Runthrough (2) Guide wire was advanced to the SVG to 1st OM. 2 x 8 Emerge Balloon catheter was inserted. 2.5 x 8 NC Euphora Balloon catheter was inserted post stent. Angiogram performed post balloon dilatation. The arterial sheath was pulled and a TR Band was applied for hemostasis. 15cc air CORONARY ANGIOGRAPHY DOMINANCE: Right Dominant LEFT HEART ASSESSMENT Left Ventricular Ejection Fraction: by LV Gram 60 % Elevated Left Ventricular End Diastolic Pressure LEFT MAIN: Angiographically normal LEFT ANTERIOR DESCENDING ARTERY: LAD: Tubular 100% Proximal lesion in LAD OM 1: Tubular 80% Mid lesion in MARG1 OM 2: Tubular 80% Mid lesion in MARG1 RIGHT CORONARY ARTERY: RCA: Tubular 100% Proximal lesion in RCA GRAFTS: SVG Graft to RT PDA Tubular 100% lesion in SVG Graft to RT PDA SVG Graft to LAD KENNY Graft to MARG1 Tubular 80% lesion in KENNY Graft to MARG1 COLLATERAL FLOW: Collateral flow from LAD to Acute Marginal Collateral flow from LAD Septal to RT PDA VALVE FINDINGS: Mitral Valve Insufficiency - Grade 2 INTERVENTION INFORMATION LESION SITE: Vein > to 1st OM Segment Number: 20-First obtuse marginal branch segment - 1st OM , Lesion Location: Distal Lesion Complexity: High/C, lesion length: 10 mm Pre Stenosis: 80 % Pre intervention LUANNE flow: 3 PROCEDURE: Drug Eluting Stent with post dilatation Post Stenosis: 0 % Post intervention LUANNE flow: 3 Lesion Devices: Cordis 6 Fr LCB 100cm Guide Catheter Terumo .014 180cm Runthrough Extra Floppy straight Medtronic 2.50 x 12 DAJUAN FRONTIER ELIE Terumo .014 180cm Runthrough Extra Floppy straight Medtronic NC EUPHORA RX 3.5x06 BALLOON Medtronic NC EUPHORA RX 2.5x08 BALLOON [employer] EMERGE MR 2.00x08 BALLOON COMPLICATIONS No Complications PA (more content not included)... Normal [facility] 12 Lead EKGon 04-30-2023 12 Lead EKG [facility] Cardiovascular Services [address] [place] [address] 12 Lead EKG 04/30/23 0521 MR#: [id number] Acct: [id number] Name: JONELLE CORONADO Rep #: [id number] : 1955 67 From: Braeden Nino MD Attending Dr: Dr. Eunice Sharma MD Status: DIS CLIFTON Ordering Dr: Eunice Sharma MD Date: 04/30/23 Location: U Sex: F C Admitted: 04/29/23 Test Reason : AM EKG Blood Pressure : / mmHG Vent. Rate : 064 BPM Atrial Rate : 064 BPM P-R Int : 144 ms QRS Dur : 082 ms QT Int : 414 ms P-R-T Axes : 065 063 031 degrees QTc Int : 427 ms Normal sinus rhythm Normal ECG When compared with ECG of 15-MAR-2024 10:40, MANUAL COMPARISON REQUIRED, DATA IS UNCONFIRMED Confirmed by BRAEDEN NINO MD ([id number]), news editor KENROY HICKS ([id number]) on 05/03/2023 6:55:59 AM Referred By: Eunice Sharma Confirmed By:BRAEDEN NINO MD 05/03/23 0656 Date Braeden Nino MD CC: HERSON Stafford; Dr. Eunice Sharma MD Signed Normal [facility] ACT Activated Clotting Timeo n 04-30-2023 ACTk CLOT TIME 293 sec [facility] [address] [facility] Comment on above: Performed By: #### L 9100.0100 ####[facility] [address] [place], [address] ACTk CLOT TIME 255 sec High 74-137 [facility] Comment on above: Performed By: #### L 9100.0100 ####[facility] [address] [place], [address] Basophil percentageOrdered B y: Eunice Sharma on 04-30-2023 Basophil percentage 14.0 g/dL 12.0-15.0 [facility] Basophil percentage 97 mg/dL 74-106 [facility] Basophil percentage 6.5 g/dL 6.4-8.2 [facility] Basophil percentage 0.50 mg/dL 0.20-1.00 [facility] Basophil percentage 140 mmol/L 136-145 [facility] Basophil percentage 4.2 mmol/L 3.5-5.1 [facility] Basophil percentage 113 mmol/L 98-107 [facility] Basophils (Bld) [#/Vol] 7.3 10*3/uL 4.4-11.0 [facility] Bilirubin [Mass/Vol] 0.50 mg/dL 0.20-1.00 [facility] Comment on above: For patients on eltr ombopag therapy, use of Dimension [place] TBIL is not recommended. Chloride [Moles/Vol] 113 mmol/L 98-107 [facility] Glucose [Mass/Vol] 97 mg/dL 74-106 [facility] Hemoglobin (Bld) [Mass/Vol] 14.0 g/dL 12.0-15.0 [facility] Potassium [Moles/Vol] 4.2 mmol/L 3.5-5.1 [facility] Protein [Mass/Vol] 6.5 g/dL 6.4-8.2 [facility] Sodium [Moles/Vol] 140 mmol/L 136-145 [facility] WBC (Bld) [#/Vol] 7.3 10*3/uL 4.4-11.0 [facility] CBC-Complete Blood Cnt No Di ffon 04-30-2023 Erythrocyte distribution width (RBC) [Ratio] 14.1 % Normal 11.6-14.6 [facility] Comment on above: Performed By: #### L 100.0500, L500.4050 ####[facility] [address] [place], [address] Hematocrit (Bld) [Volume fraction] 45.4 % Normal 37-47 [facility] Comment on above: Performed By: #### L 100.0500, L500.4050 ####[facility] [address] [place], [address] Hemoglobin (Bld) [Mass/Vol] 14.0 g/dL Normal 12.0-15.0 [facility] Comment on above: Performed By: #### L 100.0500, L500.4050 ####[facility] [address] [place], [address] MCH (RBC) [Entitic mass] 27.8 pg Normal 27.0-32.0 [facility] Comment on above: Performed By: #### L 100.0500, L500.4050 ####[facility] [address] [place], [address] MCHC (RBC) [Mass/Vol] 30.8 g/dL Low 32-36 [facility] Comment on above: Performed By: #### L 100.0500, L500.4050 ####[facility] [address] [place], [address] MCV (RBC) [Entitic vol] 90.3 fL Normal 81-99 [facility] Comment on above: Performed By: #### L 100.0500, L500.4050 ####[facility] [address] [place], [address] Platelet mean volume (Bld) [Entitic vol] 9.8 fL Normal 6.2-12.0 [facility] Comment on above: Performed By: #### L 100.0500, L500.4050 ####[facility] [address] [place], [address] Platelets (Bld) [#/Vol] 257 10*3/uL Normal 150-450 [facility] Comment on above: Performed By: #### L 100.0500, L500.4050 ####[facility] [address] [place], [address] RBC (Bld) [#/Vol] 5.03 10*6/uL Normal 4.2-5.4 [facility] Comment on above: Performed By: #### L 100.0500, L500.4050 ####[facility] [address] [place], [address] RDW SD 46.8 fl High 35.1-43.9 [facility] Comment on above: Performed By: #### L 100.0500, L500.4050 ####[facility] [address] [place], [address] WBC (Bld) [#/Vol] 7.3 10*3/uL Normal 4.4-11.0 [facility] Comment on above: Performed By: #### L 100.0500, L500.4050 ####[facility] [address] [place], [address] Comprehensive Metabolic Prof ilon 04-30-2023 Albumin [Mass/Vol] 2.8 g/dL Low 3.2-5.0 [facility] Comment on above: Performed By: #### L 100.0500, L500.4050 ####[facility] [address] [place], [address] Albumin/Globulin [Mass ratio] 0.8 {ratio} Low 0.9-2.4 [facility] Comment on above: Performed By: #### L 100.0500, L500.4050 ####[facility] [address] [place], [address] ALK P 60 U/L Normal 45-117 [facility] Comment on above: Performed By: #### L 100.0500, L500.4050 ####[facility] [address] [place], [address] ALT [Catalytic activity/Vol] 21 U/L Normal 13-56 [facility] Comment on above: Performed By: #### L 100.0500, L500.4050 ####[facility] [address] [place], [address] AST [Catalytic activity/Vol] 19 U/L Normal 15-37 [facility] Comment on above: Performed By: #### L 100.0500, L500.4050 ####[facility] [address] [place], [address] Bilirubin [Mass/Vol] 0.50 mg/dL Normal 0.20-1.00 [facility] Comment on above: Result Comment: For patients on eltrombopag therapy, use of Dimension [place] TBIL is not recommended. Performed By: #### L 100.0500, L500.4050 ####[facility] [address] [place], [address] BUN/CRE 17.0 RATIO Normal 10-20 [facility] Comment on above: Performed By: #### L 100.0500, L500.4050 ####[facility] [address] [place], [address] CA,Total 8.6 mg/dL Normal 8.5-10.1 [facility] Comment on above: Performed By: #### L 100.0500, L500.4050 ####[facility] [address] [place], [address] Chloride [Moles/Vol] 113 mmol/L High 98-107 [facility] Comment on above: Performed By: #### L 100.0500, L500.4050 ####[facility] [address] [place], [address] CO2 [Moles/Vol] 25.0 mmol/L Normal 21.0-32.0 [facility] Comment on above: Performed By: #### L 100.0500, L500.4050 ####[facility] [address] [place], [address] Creatinine [Mass/Vol] 0.82 mg/dL Normal 0.55-1.02 [facility] Comment on above: Result Comment: The validity of the calculated GFR GFRAA in patients over 70 years has not been determined. Clinical correlation is essential. Performed By: #### L 100.0500, L500.4050 ####[facility] [address] [place], [address] ECRCL 54.32 ml/min Normal [facility] Comment on above: Performed By: #### L 100.0500, L500.4050 ####[facility] [address] [place], [address] EST GFR - AA 89 mL/min Normal >60 [facility] Comment on above: Result Comment: Afri can Libyan GFR Calc Performed By: #### L 100.0500, L500.4050 ####[facility] [address] [place], [address] GAP 2 Low 5-15 [facility] Comment on above: Performed By: #### L 100.0500, L500.4050 ####[facility] [address] [place], [address] GFR/1.73 sq M.predicted among non-blacks MDRD (S/P/Bld) [Vol rate/Area] 73 mL/min/{1.73_m2} Normal >60 [facility] Comment on above: Result Comment: Non- GFR Calc Performed By: #### L 100.0500, L500.4050 ####[facility] [address] [place], [address] Globulin (S) [Mass/Vol] 3.7 g/dL Normal 2.2-4.2 [facility] Comment on above: Performed By: #### L 100.0500, L500.4050 ####[facility] [address] [place], [address] Glucose [Mass/Vol] 97 mg/dL Normal 74-106 [facility] Comment on above: Performed By: #### L 100.0500, L500.4050 ####[facility] [address] [place], [address] Potassium [Moles/Vol] 4.2 mmol/L Normal 3.5-5.1 [facility] Comment on above: Performed By: #### L 100.0500, L500.4050 ####[facility] [address] [place], [address] Sodium [Moles/Vol] 140 mmol/L Normal 136-145 [facility] Comment on above: Performed By: #### L 100.0500, L500.4050 ####[facility] [address] [place], [address] T PROT 6.5 g/dL Normal 6.4-8.2 [facility] Comment on above: Performed By: #### L 100.0500, L500.4050 ####[facility] [address] [place], [address] Urea nitrogen [Mass/Vol] 14 mg/dL Normal 7-18 [facility] Comment on above: Performed By: #### L 100.0500, L500.4050 ####[facility] [address] [place], [address] Determination of erythrocyte mean corpuscular volume (MCV)Ordered By: Eunice Sharma on 04-30-2023 MCV (RBC) [Entitic vol] 90.3 fL 81-99 [facility] Erythrocyte distribution wid th ratioOrdered By: [facility] on 04-30-2023 Erythrocyte distribution width (RBC) [Ratio] 14.1 % 11.6-14.6 [facility] Erythrocyte distribution wid th standard deviationOrdered By: [facility]23 Erythrocyte distribution width (RBC) [Entitic vol] 46.8 fL 35.1-43.9 [facility] Hematocrit Auto (Bld) [Volum e fraction]Ordered By: Eunice Zachary on 04-30-2023 Hematocrit (Bld) [Volume fraction] 45.4 % 37-47 [facility] Laboratory - Chemistry and C hemistry - challengeOrdered By: Eunice Zachary on 04-30-2023 Albumin/Globulin [Mass ratio] 0.8 {ratio} 0.9-2.4 [facility] ALP [Catalytic activity/Vol] 60 U/L 45-117 [facility] ALT [Catalytic activity/Vol] 21 U/L 13-56 [facility] CO2 [Moles/Vol] 25.0 mmol/L 21.0-32.0 [facility] Globulin (S) [Mass/Vol] 3.7 g/dL 2.2-4.2 [facility] Urea nitrogen/Creatinine [Mass ratio] 17.0 mg/mg 10-20 [facility] Laboratory - Hematology and Cell countsOrdered By: Eunice Sharma on 04-30-2023 MCH (RBC) [Entitic mass] 27.8 pg 27.0-32.0 [facility] MCHC (RBC) [Mass/Vol] 30.8 g/dL 32-36 [facility] Platelet mean volume (Bld) [Entitic vol] 9.8 fL 6.2-12.0 [facility] Platelets (Bld) [#/Vol] 257 10*3/uL 150-450 [facility] No Panel InformationOrdered By: Eunice Sharma on 04-30-2023 Estimated Creatinine Clearance Calc 54.32 ml/min [facility] Estimated GFR (MDRD) Amer 89 mL/min >60 [facility] Comment on above: GFR Calc Estimated GFR (MDRD) Non-Af Amer 73 mL/min >60 [facility] Comment on above: Non- GFR Calc 27.8 pg 27.0-32.0 [facility] 30.8 g/dL 32-36 [facility] 257 K/mm3 150-450 [facility] 9.8 fl 6.2-12.0 [facility] 73 mL/min >60 [facility] 89 mL/min >60 [facility] 54.32 ml/min [facility] 17.0 RATIO 10-20 [facility] 3.7 g/dL 2.2-4.2 [facility] 0.8 RATIO 0.9-2.4 [facility] 60 U/L 45-117 [facility] 21 U/L 13-56 [facility] 25.0 mmol/L 21.0-32.0 [facility] RBC Auto (Bld) [#/Vol]Ordere d By: Eunice Sharma on 04-30-2023 RBC (Bld) [#/Vol] 5.03 10*6/uL 4.2-5.4 [facility] Serum or plasma calcium marin urement (mass/volume)Ordered By: Eunice Sharma on 04-30-2023 Calcium [Mass/Vol] 8.6 mg/dL 8.5-10.1 [facility] Serum or plasma creatinine m easurement (mass/volume)Ordered By: Eunice Sharma on 04-30-2023 Creatinine [Mass/Vol] 0.82 mg/dL 0.55-1.02 [facility] Comment on above: The validity of the calculated GFR & GFRAA in patients over 70 years has not been determined. Clinical correlation is essential. Serum or plasma urea nitroge n measurement (mass/volume)Ordered By: Eunice Sharma on 04-30-2023 Urea nitrogen [Mass/Vol] 14 mg/dL 7-18 [facility] Thin prep Papanicolaou smear with manual screeningOrdered By: Eunice Sharma on 04-30-2023 Thin prep Papanicolaou smear with manual screening 2.8 g/dL 3.2-5.0 [facility] Thin prep Papanicolaou smear with manual screening 19 U/L 15-37 [facility] Thin prep Papanicolaou smear with manual screening 2 5-15 [facility] Discharge Instructionon 04-14 Discharge Instruction [facility] Medical Records Department [address] [place] [address] Instructions for Home/Discharge Instructions 04/29/23 1031 MR#: [id number] Acct: [id number] Name: JONELLE CORONADO Rep #: [id number] : 1955 67 From: Eunice Sharma MD PCP: HERSON Matthews Status:REG [facility] [place] Discharge Instructions Diet Discharge Diet: Low fat / Low cholesterol Activity Discharge Activity: Return to Normal Activity May resume sexual activity in: No Restrictions Dressing / Incision Call your doctor if your incision/area has: Continuous Slow Oozing, Sudden Increased Bleeding, Increased Pain/ Swelling, Increased Redness, Foul Smelling Discharge and Swelling at the incision site Call your doctor if you observe: Fever of 101 or Higher, Coldness, Increased Pain and Numbness or Tingling Follow Up Care Please Follow Up With: Karime Roblero NP, CLINICAL LAB CLERK-C When: 2 weeks Test Results: Test results from this visit will be discussed in further detail at your follow-up appointment, if applicable. Discharge Plan Admission Attending Provider: Eunice Sharma Primary Care Provider: Patsy Staffrod Discharge Orders/Prescriptions Prescriptions: New aspirin 81 mg Tablet,Delayed Release (Dr/Ec) 81 mg PO DAILY@0800 Qty: 100 3RF Continued lorazepam [Ativan] 1 mg tablet 1.5 mg PO QHS escitalopram oxalate [Lexapro] 20 mg tablet 20 mg PO DAILY nitroglycerin 0.4 mg tablet, sublingual 0.4 mg sublingual Q5-15M PRN (Reason: chest pain) Qty: 25 6RF Rx Instructions: do not exceed 3 doses per episode hydrocortisone 10 mg tablet 20 mg PO .COMPLEX Hold Instructions: Hold while taking prednisone. Patient Comments: TAKE 2 TABLETS BY MOUTH at 7AM and ONE TABLET at 7PM Rx Instructions: 20 mg PO TAKE 2 TABLETS BY MOUTH at 7AM and ONE TABLET at 7PM; Entresto 24-26 mg Tablet 1 tab PO BID Qty: 60 2RF Rx Instructions: Hold for SBP less than 90 mmHg Jardiance 10 mg Tablet 10 mg PO DAILY Qty: 30 2RF Rx Instructions: Hold if patient gets vaginitis/moniliasis pantoprazole [Protonix] 40 mg tablet,delayed release (DR/EC) 40 mg PO DAILY Qty: 30 2RF Repatha SureClick 140 mg/mL pen injector 140 mg SC Q2W Qty: 2 11RF ticagrelor 90 mg tablet 90 mg PO BID Qty: 180 3RF metoprolol tartrate 25 mg tablet 25 mg PO BID Qty: 180 3RF Discontinued cilostazol 50 mg tablet 50 mg PO BID Referrals / Follow Up: Patsy Stafford, JERRELL-C [Primary Care Provider] - Disposition Disposition (needs filled in before D/C Order can be placed): Home, Self Care 04/29/23 1036 Eunice Sharma MD CC: CLINICAL LAB CLERK-C Patsy Stafford Signed Normal [facility] No Panel InformationOrdered By: Eunice Sharma on 04-29-2023 Activated Clotting Time 293 sec 74-137 [facility] 293 sec 74-137 [facility] Absolute lymphocyte countOrd ered By: Karime Roblero on 04-20-2023 Lymphocytes Auto (Unsp spec) [#/Vol] 1.84 10*3/uL 0.83-4.51 [facility] Automated lymphocyte count a s percentage of total leukocytesOrdered By: Karime Roblero on 04-20-2023 Lymphocytes/100 WBC Auto (Unsp spec) 19.2 % 19-41 [facility] Basic Metabolic Profile (BMP )on 04-20-2023 BUN/CRE 13.3 RATIO Normal 10-20 [facility] Comment on above: Performed By: #### L 100.0100, L500.2500 ####[facility] [address] [facility] [address] [place],Total 8.8 mg/dL Normal 8.5-10.1 [facility] Comment on above: Performed By: #### L 100.0100, L500.2500 ####[facility] [address] [place], [address] Chloride [Moles/Vol] 109 mmol/L High 98-107 [facility] Comment on above: Performed By: #### L 100.0100, L500.2500 ####[facility] [address] [facility] [address] CO2 [Moles/Vol] 25.0 mmol/L Normal 21.0-32.0 [facility] Comment on above: Performed By: #### L 100.0100, L500.2500 ####[facility] [address] [place], [address] Creatinine [Mass/Vol] 0.98 mg/dL Normal 0.55-1.02 [facility] Comment on above: Result Comment: The validity of the calculated GFR GFRAA in patients over 70 years has not been determined. Clinical correlation is essential. Performed By: #### L 100.0100, L500.2500 ####[facility] [address] [place], [address] EST GFR - AA 73 mL/min Normal >60 [facility] Comment on above: Result Comment: Afri can Libyan GFR Calc Performed By: #### L 100.0100, L500.2500 ####[facility] [address] [place], [address] GAP 6 Normal 5-15 [facility] Comment on above: Performed By: #### L 100.0100, L500.2500 ####[facility] [address] [place], [address] GFR/1.73 sq M.predicted among non-blacks MDRD (S/P/Bld) [Vol rate/Area] 60 mL/min/{1.73_m2} Normal >60 [facility] Comment on above: Result Comment: Non- GFR Calc Performed By: #### L 100.0100, L500.2500 ####[facility] [address] [place], [address] Glucose [Mass/Vol] 108 mg/dL High 74-106 [facility] Comment on above: Result Comment: Fast ing Glucose result from 100 to 125 mg/dL suggests IMPAIRED HOMEOSTASIS per A.D.A. criteria. Performed By: #### L 100.0100, L500.2500 ####[facility] [address] [place], [address] Potassium [Moles/Vol] 3.9 mmol/L Normal 3.5-5.1 [facility] Comment on above: Performed By: #### L 100.0100, L500.2500 ####[facility] [address] [place], [address] Sodium [Moles/Vol] 140 mmol/L Normal 136-145 [facility] Comment on above: Performed By: #### L 100.0100, L500.2500 ####[facility] [address] [place], [address] Urea nitrogen [Mass/Vol] 13 mg/dL Normal 7-18 [facility] Comment on above: Performed By: #### L 100.0100, L500.2500 ####[facility] [address] [place], [address] Basophil percentageOrdered B y: Karime Roblero on 04-20-2023 Basophils (Bld) [#/Vol] 7.0 10*3/uL 2.0-7.7 [facility] Basophils/100 WBC (Bld) 73.3 % 47-70 [facility] Basophils/100 WBC (Bld) 5.5 % 0-10 [facility] Basophils/100 WBC (Bld) 1.0 % 0-5 [facility] Basophils/100 WBC (Bld) 0.5 % 0-1 [facility] Eosinophils/100 WBC (Bld) 1.0 % 0-5 [facility] Monocytes/100 WBC (Bld) 5.5 % 0-10 [facility] Neutrophils (Bld) [#/Vol] 7.0 10*3/uL 2.0-7.7 [facility] Neutrophils/100 WBC (Bld) 73.3 % 47-70 [facility] CBC W/Diff, Automatedon Absolute Lymph 1.84 X10 3/uL Normal 0.83-4.51 [facility] Comment on above: Performed By: #### L 100.0100, L500.2500 ####[facility] [address] [place], [address] Absolute Neut 7.0 X10 3/uL Normal 2.0-7.7 [facility] Comment on above: Performed By: #### L 100.0100, L500.2500 ####[facility] [address] [place], [address] Basophils/100 WBC (Bld) 0.5 % Normal 0-1 [facility] Comment on above: Performed By: #### L 100.0100, L500.2500 ####[facility] [address] [place], [address] Eosinophils/100 WBC (Bld) 1.0 % Normal 0-5 [facility] Comment on above: Performed By: #### L 100.0100, L500.2500 ####[facility] [address] [place], [address] Erythrocyte distribution width (RBC) [Ratio] 14.0 % Normal 11.6-14.6 [facility] Comment on above: Performed By: #### L 100.0100, L500.2500 ####[facility] [address] [place], [address] Hematocrit (Bld) [Volume fraction] 43.8 % Normal 37-47 [facility] Comment on above: Performed By: #### L 100.0100, L500.2500 ####[facility] [address] [place], [address] Hemoglobin (Bld) [Mass/Vol] 13.9 g/dL Normal 12.0-15.0 [facility] Comment on above: Performed By: #### L 100.0100, L500.2500 ####[facility] [address] [place], [address] IG% 0.500 Normal 0.0-0.9 [facility] Comment on above: Result Comment: IG% - Immature Granulocytes (promyelocytes, myelocytes and metamyelocytes) > 1% indicates that a LEFT SHIFT is Present. Performed By: #### L 100.0100, L500.2500 ####[facility] [address] [place], [address] Lymphocytes/100 WBC (Bld) 19.2 % Normal 19-41 [facility] Comment on above: Performed By: #### L 100.0100, L500.2500 ####[facility] [address] [place], [address] MCH (RBC) [Entitic mass] 28.6 pg Normal 27.0-32.0 [facility] Comment on above: Performed By: #### L 100.0100, L500.2500 ####[facility] [address] [place], [address] MCHC (RBC) [Mass/Vol] 31.7 g/dL Low 32-36 [facility] Comment on above: Performed By: #### L 100.0100, L500.2500 ####[facility] [address] [place], [address] MCV (RBC) [Entitic vol] 90.1 fL Normal 81-99 [facility] Comment on above: Performed By: #### L 100.0100, L500.2500 ####[facility] [address] [place], [address] Monocytes/100 WBC (Bld) 5.5 % Normal 0-10 [facility] Comment on above: Performed By: #### L 100.0100, L500.2500 ####[facility] [address] [place], [address] Neutrophils/100 WBC (Bld) 73.3 % High 47-70 [facility] Comment on above: Performed By: #### L 100.0100, L500.2500 ####[facility] [address] [place], [address] Nucleated RBC (Bld) [#/Vol] 0 10*3/uL Normal 0-5 [facility] Comment on above: Performed By: #### L 100.0100, L500.2500 ####[facility] [address] [place], [address] Platelet mean volume (Bld) [Entitic vol] 9.9 fL Normal 6.2-12.0 [facility] Comment on above: Performed By: #### L 100.0100, L500.2500 ####[facility] [address] [place], [address] Platelets (Bld) [#/Vol] 277 10*3/uL Normal 150-450 [facility] Comment on above: Performed By: #### L 100.0100, L500.2500 ####[facility] [address] [place], [address] RBC (Bld) [#/Vol] 4.86 10*6/uL Normal 4.2-5.4 [facility] Comment on above: Performed By: #### L 100.0100, L500.2500 ####[facility] [address] [place], [address] RDW SD 46.2 fl High 35.1-43.9 [facility] Comment on above: Performed By: #### L 100.0100, L500.2500 ####[facility] [address] [place], [address] WBC (Bld) [#/Vol] 9.6 10*3/uL Normal 4.4-11.0 [facility] Comment on above: Performed By: #### L 100.0100, L500.2500 ####[facility] [address] [place], [address] Immature granulocytes/100 WB C Auto (Bld)Ordered By: Karime Roblero on 04-20-2023 Immature granulocytes/100 WBC (Bld) 0.500 % 0.0-0.9 [facility] Comment on above: IG% - Immature Granu locytes (promyelocytes, myelocytes and metamyelocytes) > 1% indicates that a LEFT SHIFT is Present. Laboratory - Hematology and Cell countsOrdered By: Karime Roblero on 04-20-2023 Nucleated RBC/100 WBC (Bld) [Ratio] 0 % 0-5 [facility] No Panel InformationOrdered By: Karime Roblero on 04-20-2023 0 % 0-5 [facility] Stress Reporton 04-14-2023 Stress Report [facility] [address] [place] [address] MR#: [id number] Acct: [id number] Name: JONELLE CORONADO Rep #: [id number] : 1955 67 From: Eunice Sharma MD Primary Care: HERSON Matthews Status: R EG CLI Referring Dr: Karime Roblero NP, NP-Janell Sex: F C Stress Test Report Date: 04/11/2023 Procedure: Pharmacologic stress nuclear imaging study Indications: Coronary artery disease Consent: Per the patient Procedure: The patient underwent pharmacologic (Regadenoson 0.4mg ) evaluation with a peak heart rate of 92 beats per minute (60%predicted maximal heart rate) and a peak blood pressure of 134/70 mmHg. The baseline ECG demonstrated sinus rhythm. The peak pharmacologic ECG demonstrated no ischemic changes. Transient AV block noted with administration of Lexiscan. There was no complaint of chest discomfort during pharmacologic infusion or recovery. The patient was injected with 11.8 millicuries of technetium 99m Cardiolite and subsequently rest SPECT Cardiolite nuclear imaging was obtained in the horizontal long, vertical long, and short axis views. The patient underwent pharmacologic (Regadenoson) evaluation. The patient was injected with 34.2 millicuries of technetium 99m Cardiolite and subsequently stress SPECT Cardiolite nuclear imaging was obtained in the horizontal long, vertical long, and short axis views. A gated Cardiolite study at peak stress was obtained. The examination was stopped secondary to completion of protocol. Rest and stress SPECT Cardiolite nuclear imaging status post realignment, normalization, and attenuation correction demonstrate small reversible perfusion defect of the basal lateral wall. There is end systolic thickening and brightening. The gated Cardiolite study demonstrates myocardial thickening and inward wall motion. The reported LVEF is 65%. Impression: 1. Pharmacologic (Regadenoson) evaluation 2. Peak pharmacologic ECG with no ischemic changes. 3. Transient AV block with administration of Lexiscan.. 5. Mild reversible perfusion defect of the lateral wall compatible with mild ischemia. 6. The gated Cardiolite study reports an LVEF of 65%. This note was generated with [employer]ine[employer] software. It may contain incorrect words, spelling, and punctuation that were not noted in checking the note before signing. 04/14/23 1509 Date Eunice Sharma MD CC: HERSON Roblero; HERSON Stafford Date Dictated: 04/14/23 1507 Date Transcribed: 04/14/231506 [employer]ader: KETTY Signed Normal [facility] Echo Limited w/Contraston Echo Limited w/Contrast [facility] Services [address] [place] [address] Echo Limited w/Contrast 04/11/23 0854 MR#: [id number] Acct: [id number] Name: JONELLE CORONADO Rep #: [id number] : 1955 67 From: Eunice Sharma MD Attending Dr: HERSON Glasgow Status: REG C Ordering Dr: Karime Roblero CLINICAL LAB CLERK CLINICAL LAB CLERK-C Date: 04/11/23 Location: CVS Sex: F C Admitted: Reason For Study: Cardiomyopathy Procedure This was a limited 2D transthoracic echocardiogram. The study was technically difficult. Contrast injection was performed. Exam performed in department. Left Ventricle Normal size and thickness. Basal to mid posterior wall hypokinesis. Estimated LV systolic ejection fraction 50%. Right Ventricle Normal right ventricle. Atria The left and right atria are normal. Mitral Valve Trivial mitral valve insufficiency. Tricuspid Valve Normal tricuspid valve. Aortic Valve Trisinus/trileaflet aortic valve. Pulmonic Valve The pulmonic valve is not well visualized. Great Vessels The aortic root is not well visualized. Pericardium/Pleural No pericardial effusion. Medication 20 gauge I.V. with prn adaptor inserted into right arm. Diluted definity 2.5ml given slow IV push to enhance endocardial definition. MMode/2D Measurements Calculations LVIDd: 4.6 cm IVSd: 0.76 cm LA dimension: 3.7 cm LVIDs: 3.2 cm LVPWd: 0.61 cm RVDd: 3.2 cm FS: 29.3 % LAV(MOD-sp4): 32.0 ml LVAd ap4: 27.0 cm2 SV(MOD-sp4): 39.2 ml LVLd ap4: 6.9 cm EDV(MOD-sp4): 85.7 ml EDV(sp4-el): 89.2 ml LVAs ap4: 18.5 cm2 LVLs ap4: 6.1 cm ESV(MOD-sp4): 46.6 ml ESV(sp4-el): 47.8 ml EF(MOD-sp4): 45.7 % EF(sp4-el): 46.4 % SV(sp4-el): 41.4 ml LA A4 area: 14.1 cm2 RA A4 area: 12.3 cm2 ECHO/Echo Limited w/Contrast Interpretation Summary Basal to mid posterior wall hypokinesis. Estimated LV systolic ejection fraction 50%. Ordering Physician: Karime Roblero Referring Physician: Karime Roblero Performed By: Luis Angel Alberto [facility] 04/14/23 1611 Date Eunice Sharma MD CC: HERSON Roblero; HERSON Stafford Date Dictated: 04/11/23 0854 Date Transcribed: 04/14/23 161 [employer]ader: Signed [facility] Absolute lymphocyte countOrd ered By: Wyatt Wyatt on 02-08-2023 Lymphocytes Auto (Unsp spec) [#/Vol] 1.33 10*3/uL 0.83-4.51 [facility] Basophil percentageOrdered B y: Wyatt Wyatt on 02-08-2023 Basophil percentage 147 mg/dL 74-106 [facility] Basophil percentage 139 mmol/L 136-145 [facility] Basophil percentage 4.2 mmol/L 3.5-5.1 [facility] Basophil percentage 105 mmol/L 98-107 [facility] Basophils (Bld) [#/Vol] 8.7 10*3/uL 4.4-11.0 [facility] Basophils (Bld) [#/Vol] 6.7 10*3/uL 2.0-7.7 [facility] Basophils/100 WBC (Bld) 76.8 % 47-70 [facility] Basophils/100 WBC (Bld) 2.4 % 0-5 [facility] Basophils/100 WBC (Bld) 0.6 % 0-1 [facility] Chloride [Moles/Vol] 105 mmol/L 98-107 [facility] Eosinophils/100 WBC (Bld) 2.4 % 0-5 [facility] Glucose [Mass/Vol] 147 mg/dL 74-106 [facility] Comment on above: Fasting Glucose resu lt greater than or equal to 126 mg/dL suggests DIABETES MELLITUS per A.D.A. criteria. Neutrophils (Bld) [#/Vol] 6.7 10*3/uL 2.0-7.7 [facility] Neutrophils/100 WBC (Bld) 76.8 % 47-70 [facility] Potassium [Moles/Vol] 4.2 mmol/L 3.5-5.1 [facility] Sodium [Moles/Vol] 139 mmol/L 136-145 [facility] WBC (Bld) [#/Vol] 8.7 10*3/uL 4.4-11.0 [facility] Blood erythrocytes count (nu mber/volume)Ordered By: Wyatt Wyatt on 02-08-2023 RBC (Bld) [#/Vol] 4.00 10*6/uL 4.2-5.4 [facility] Blood hemoglobin measurement (mass/volume)Ordered By: Wyatt Wyatt on 02-08-2023 Hemoglobin (Bld) [Mass/Vol] 12.1 g/dL 12.0-15.0 [facility] Blood lymphocytes/100 leukoc ytesOrdered By: Wyatt Wyatt on 02-08-2023 Lymphocytes/100 WBC (Bld) 15.2 % 19-41 [facility] Blood manual differential co mment interpretation (narrative result)Ordered By: Wyatt Wyatt on 02-08-2023 Manual differential comment Cristofer (Bld) [Interp] SCANNED [facility] Blood monocytes/100 leukocyt esOrdered By: Wyatt Wyatt on 02-08-2023 Monocytes/100 WBC (Bld) 4.2 % 0-10 [facility] Blood platelet mean volumeOr dered By: Wyatt Wyatt on 02-08-2023 Platelet mean volume (Bld) [Entitic vol] 10.4 fL 6.2-12.0 [facility] Determination of erythrocyte mean corpuscular volume (MCV)Ordered By: Wyatt Wyatt on 02-08-2023 MCV (RBC) [Entitic vol] 94.0 fL 81-99 [facility] Hematocrit Auto (Bld) [Volum e fraction]Ordered By: Wyatt Wyatt on 02-08-2023 Hematocrit (Bld) [Volume fraction] 37.6 % 37-47 [facility] Laboratory - Chemistry and C hemistry - challengeOrdered By: Wyatt Wyatt on 02-08-2023 CO2 [Moles/Vol] 31.0 mmol/L 21.0-32.0 [facility] Urea nitrogen/Creatinine [Mass ratio] 35.5 mg/mg 10-20 [facility] Laboratory - Hematology and Cell countsOrdered By: Wyatt Wyatt on 02-08-2023 Erythrocyte distribution width (RBC) [Entitic vol] 48.2 fL 35.1-43.9 [facility] Erythrocyte distribution width (RBC) [Ratio] 14.0 % 11.6-14.6 [facility] Immature granulocytes/100 WBC (Bld) 0.800 % 0.0-0.9 [facility] Comment on above: IG% - Immature Granu locytes (promyelocytes, myelocytes and metamyelocytes) > 1% indicates that a LEFT SHIFT is Present. MCH (RBC) [Entitic mass] 30.3 pg 27.0-32.0 [facility] Nucleated RBC/100 WBC (Bld) [Ratio] 0 % 0-5 [facility] MCHC Auto (RBC) [Mass/Vol]Or dered By: Wyatt Wyatt on 02-08-2023 MCHC (RBC) [Mass/Vol] 32.2 g/dL 32-36 [facility] No Panel InformationOrdered By: Wyatt Wyatt on 02-08-2023 Estimated Creatinine Clearance Calc 42.59 ml/min [facility] Estimated GFR (MDRD) Amer 123 mL/min >60 [facility] Comment on above: GFR Calc Estimated GFR (MDRD) Non-Af Amer 102 mL/min >60 [facility] Comment on above: Non- GFR Calc Reactive Lymphocytes 1+ [facility] 30.3 pg 27.0-32.0 [facility] 14.0 % 11.6-14.6 [facility] 48.2 fl 35.1-43.9 [facility] 0.800 % 0.0-0.9 [facility] 0 % 0-5 [facility] 1+ [facility] 102 mL/min >60 [facility] 123 mL/min >60 [facility] 42.59 ml/min [facility] 35.5 RATIO 10-20 [facility] 31.0 mmol/L 21.0-32.0 [facility] Platelets bldOrdered By: Christie Wyatt on 02-08-2023 Platelets (Bld) [#/Vol] 182 10*3/uL 150-450 [facility] Serum or plasma calcium marin urement (mass/volume)Ordered By: Wyatt Wyatt on 02-08-2023 Calcium [Mass/Vol] 8.4 mg/dL 8.5-10.1 [facility] Serum or plasma creatinine m easurement (mass/volume)Ordered By: Wyatt Wyatt on 02-08-2023 Creatinine [Mass/Vol] 0.62 mg/dL 0.55-1.02 [facility] Comment on above: The validity of the calculated GFR & GFRAA in patients over 70 years has not been determined. Clinical correlation is essential. Serum or plasma urea nitroge n measurement (mass/volume)Ordered By: Wyatt Wyatt on 02-08-2023 Urea nitrogen [Mass/Vol] 22 mg/dL 7-18 [facility] Thin prep Papanicolaou smear with manual screeningOrdered By: Wyatt Wyatt on 02-08-2023 Thin prep Papanicolaou smear with manual screening 3 5-15 [facility] Basophil percentageOrdered B y: Juan Dupree on 02-07-2023 Basophil percentage 2.0 mg/dL 2.5-4.9 [facility] Laboratory - Chemistry and C hemistry - challengeOrdered By: Juan Dupree on 02-07-2023 Magnesium [Mass/Vol] 2.1 mg/dL 1.6-2.6 [facility] No Panel InformationOrdered By: Juan Dupree on 02-07-2023 2.1 mg/dL 1.6-2.6 [facility] Basophil percentageOrdered B y: Wyatt Wyatt on 02-06-2023 Basophil percentage 6.0 g/dL 6.4-8.2 [facility] Basophil percentage 0.40 mg/dL 0.20-1.00 [facility] Bilirubin [Mass/Vol] 0.40 mg/dL 0.20-1.00 [facility] Comment on above: For patients on eltr ombopag therapy, use of Dimension [place] TBIL is not recommended. Protein [Mass/Vol] 6.0 g/dL 6.4-8.2 [facility] Laboratory - Chemistry and C hemistry - challengeOrdered By: Wyatt Wyatt on 02-06-2023 ALP [Catalytic activity/Vol] 46 U/L [facility] ALT [Catalytic activity/Vol] 47 U/L [facility] Globulin (S) [Mass/Vol] 3.6 g/dL 2.2-4.2 [facility] No Panel InformationOrdered By: Wyatt Wyatt on 02-06-2023 3.6 g/dL 2.2-4.2 [facility] 46 U/L [facility] 47 U/L [facility] Serum or plasma albumin marin urement (mass/volume)Ordered By: Wyatt Wyatt on 02-06-2023 Albumin [Mass/Vol] 2.4 g/dL 3.2-5.0 [facility] Serum or plasma albumin/glob ulin mass ratioOrdered By: Wyatt Wyatt on 02-06-2023 Albumin/Globulin [Mass ratio] 0.7 {ratio} 0.9-2.4 [facility] Stool gastrointestinal hemog lobin detection by immunologic methodOrdered By: Wyatt Wyatt on 02-06-2023 Lower GI hemoglobin IA Ql (Stl) [facility] Lower GI hemoglobin IA Ql (Stl) [facility] Thin prep Papanicolaou smear with manual screeningOrdered By: Wyatt Wyatt on 02-06-2023 Thin prep Papanicolaou smear with manual screening 53 U/L 15-37 [facility] Comment on above: Moderate Hemolysis, Result may be falsely increased. No Panel InformationOrdered By: Prince Oropeza on 02-05-2023 Thyroid Stimulating Hormone (TSH) 0.41 uIU/mL 0.358-3.74 [facility] 0.41 uIU/mL 0.358-3.74 [facility] Absolute lymphocyte countOrd ered By: Raheel Yun on 02-04-2023 Lymphocytes Auto (Unsp spec) [#/Vol] 3.96 10*3/uL 0.83-4.51 [facility] Assessment of wrist artery p atency prior to arterial punctureOrdered By: Juan Dupree on 02-04-2023 Arterial patency Wrist artery --pre arterial puncture Positive [facility] Assessment of wrist artery p atency prior to arterial punctureOrdered By: Raheel Yun on 02-04-2023 Arterial patency Wrist artery --pre arterial puncture Positive [facility] Bacteria identified Cx Nom ( U)Ordered By: Raheel Yun on 02-04-2023 Culture, urine Escherichia coli [facility] Culture, urine Klebsiella pneumonia e sp pneum [facility] Culture, urine Escherichia coli [facility] Culture, urine Klebsiella pneumonia e sp pneum [facility] Base excessOrdered By: Gonzales Dupree on 02-04-2023 Base excess Calc (BldV) [Moles/Vol] -4 mmol/L -2-2 [facility] Base excessOrdered By: Raheel Yun on 02-04-2023 Base excess Calc (BldV) [Moles/Vol] -3 mmol/L -2-2 [facility] Basophil percentageOrdered B y: Juan Dupree on 02-04-2023 Basophil percentage 22.5 mmol/L 22- [facility] Basophils/100 WBC (Bld) 93 % 95-99 [facility] Basophil percentageOrdered B y: Raheel Yun on 02-04-2023 Basophil percentage 25.2 mmol/L - [facility] Basophils/100 WBC (Bld) 92 % 95-99 [facility] Basophil percentage 25-50 SEEN /hpf 0-5 [facility] Basophil percentage 1.6 mmol/L 0.4-2.0 [facility] Lactate [Moles/Vol] 1.6 mmol/L 0.4-2.0 [facility] Basophils/100 WBC (Bld) 0.5 % 0-1 [facility] Chloride [Moles/Vol] 106 mmol/L 98-107 [facility] Eosinophils/100 WBC (Bld) 0.4 % 0-5 [facility] Glucose [Mass/Vol] 236 mg/dL 74-106 [facility] Comment on above: Glucose result great er than or equal to 200 mg/dLsuggests DIABETES MELLITUS per A.D.A. criteria. Neutrophils (Bld) [#/Vol] 8.5 10*3/uL 2.0-7.7 [facility] Neutrophils/100 WBC (Bld) 60.2 % 47-70 [facility] Potassium [Moles/Vol] 4.3 mmol/L 3.5-5.1 [facility] Comment on above: Moderate Hemolysis, Result may be falsely increased. Sodium [Moles/Vol] 138 mmol/L 136-145 [facility] WBC (Bld) [#/Vol] 14.2 10*3/uL 4.4-11.0 [facility] Bilirubin Test strip Ql (U)O rdered By: Raheel Yun on 02-04-2023 Bilirubin Ql (U) Negative Negative [facility] Blood erythrocytes count (nu mber/volume)Ordered By: Raheel Yun on 02-04-2023 RBC (Bld) [#/Vol] 4.73 10*6/uL 4.2-5.4 [facility] Blood hemoglobin measurement (mass/volume)Ordered By: Raheel Yun on 02-04-2023 Hemoglobin (Bld) [Mass/Vol] 14.4 g/dL 12.0-15.0 [facility] Blood lymphocytes/100 leukoc ytesOrdered By: Raheel Yun on 02-04-2023 Lymphocytes/100 WBC (Bld) 27.9 % 19-41 [facility] Blood monocytes/100 leukocyt esOrdered By: Raheel Yun on 02-04-2023 Monocytes/100 WBC (Bld) 10.4 % 0-10 [facility] Blood platelet mean volumeOr dered By: Raheel Yun on 02-04-2023 Platelet mean volume (Bld) [Entitic vol] 11.0 fL 6.2-12.0 [facility] CO2 (BldA) [Partial pressure ]Ordered By: Juan Dupree on 02-04-2023 CO2 (Bld) [Partial pressure] 43.6 mm[Hg] 35-45 [facility] CO2 (BldA) [Partial pressure ]Ordered By: Raheel Yun on 02-04-2023 CO2 (Bld) [Partial pressure] 62.0 mm[Hg] 35-45 [facility] Culture, urineOrdered By: Nitish Yun on 02-04-2023 Bacteria identified Cx Nom (U) Escherichia coli [facility] Bacteria identified Cx Nom (U) Klebsiella pneumoniae sp pneum [facility] Bacteria identified Cx Nom (U) Escherichia coli [facility] Bacteria identified Cx Nom (U) Klebsiella pneumoniae sp pneum [facility] Determination of erythrocyte mean corpuscular volume (MCV)Ordered By: Raheel Yun on 02-04-2023 MCV (RBC) [Entitic vol] 97.0 fL 81-99 [facility] Comment on above: Delta: 92.1 on 02/03-1000 Hematocrit Auto (Bld) [Volum e fraction]Ordered By: Raheel Yun on 02-04-2023 Hematocrit (Bld) [Volume fraction] 45.9 % 37-47 [facility] INR in Blood by Coagulation assayOrdered By: Raheel Yun on 02-04-2023 INR Coag (Bld) [Relative time] 1.1 {INR} [facility] Ketones Test strip Ql (U)Ord ered By: Raheel Yun on 02-04-2023 Ketones Ql (U) Negative Negative [facility] Laboratory - Chemistry and C hemistry - challengeOrdered By: Raheel Yun on 02-04-2023 CO2 [Moles/Vol] 25.0 mmol/L 21.0-32.0 [facility] Urea nitrogen/Creatinine [Mass ratio] 7.5 mg/mg 10-20 [facility] Laboratory - CoagulationOrde red By: Raheel Yun on 02-04-2023 aPTT Coag (Bld) [Time] 28.7 s 24.1-36.2 [facility] PT Coag (PPP) [Time] 13.7 s 11.7-14.9 [facility] Laboratory - Hematology and Cell countsOrdered By: Raheel Yun on 02-04-2023 Erythrocyte distribution width (RBC) [Entitic vol] 51.1 fL 35.1-43.9 [facility] Erythrocyte distribution width (RBC) [Ratio] 14.1 % 11.6-14.6 [facility] Immature granulocytes/100 WBC (Bld) 0.600 % 0.0-0.9 [facility] Comment on above: IG% - Immature Granu locytes (promyelocytes, myelocytes and metamyelocytes) > 1% indicates that a LEFT SHIFT is Present. MCH (RBC) [Entitic mass] 30.4 pg 27.0-32.0 [facility] Nucleated RBC/100 WBC (Bld) [Ratio] 0 % 0-5 [facility] Laboratory - Microbiology an d Antimicrobial susceptibilityOrdered By: Raheel Yun on 02-04-2023 Bacteria identified Cx Nom (Bld) No growth in 5 days. [facility] Bacteria identified Cx Nom (Bld) No growth in 5 days. [facility] MCHC Auto (RBC) [Mass/Vol]Or dered By: Raheel Yun on 02-04-2023 MCHC (RBC) [Mass/Vol] 31.4 g/dL 32-36 [facility] Comment on above: Delta: 33.6 on 02/03-1000 Mucus LM Ql (Urine sed)Order ed By: Raheel Yun on 02-04-2023 Mucus Ql (Urine sed) 0 SEEN /hpf [facility] Nitrite Test strip Ql (U)Ord ered By: Raheel Yun on 02-04-2023 Nitrite Ql (U) Negative Negative [facility] No Panel InformationOrdered By: Juan Dupree on 02-04-2023 Bedside Blood Gas PEEP 12 [facility] Blood Gas Clinical Comments avaps [facility] Blood Gas Oxygen Percent 45.0 [facility] Blood Gas Respiration Rate 14 [facility] Blood Gas Sample Site R Radial [facility] Blood Gas Specimen Type ART [facility] Blood Gas Tidal Volume 500.0 mL [facility] Blood Gas Total CO2 24 mmol/L [facility] Blood Gas Vent Mode Not entered [facility] Oxygen Delivery Device BiPAP [facility] ART [facility] R Radial [facility] 500.0 mL [facility] 14 [facility] 45.0 [facility] 12 [facility] avaps [facility] 24 mmol/L [facility] No Panel InformationOrdered By: Prince Oropeza on 02-04-2023 Troponin I High Sensitivity 2716 pg/mL 3.0-54.0 [facility] Comment on above: Critical Result(s) C alled at: 06:59:11 02/04/2023 by: [place]. Results read back by same. Please Note: New Test Units and Gender Specific Reference Ranges. For more information see Policy Stat Procedure [place] High Sensitivity Troponin (TNIH) and attachments. 2716 pg/mL 3.0-54.0 [facility] No Panel InformationOrdered By: Raheel Yun on 02-04-2023 Bedside Blood Gas PEEP 12 [facility] Blood Gas Oxygen Percent 50.0 [facility] Blood Gas Respiration Rate 14 [facility] Blood Gas Sample Site L Radial [facility] Blood Gas Specimen Type ART [facility] Blood Gas Tidal Volume 500.0 mL [facility] Blood Gas Total CO2 27 mmol/L [facility] Blood Gas Vent Mode Not entered [facility] Oxygen Delivery Device BiPAP [facility] No growth in 5 days. [facility] Bld Gas Crit Called To/Read Back By Yes [facility] Yes [facility] D-Dimer Quantitative (PE/DVT) 2.08 FEU/ug/m 0.27-0.49 [facility] Comment on above: D-Dimer ELEVATED (>0 .49): Additional studies and clinicalassessments are indicated to conclude diagnosis of:Deep Vein Thrombosis (DVT) or Pulmonary Embolism (PE)CRITICAL VALUE VERIFIED. [facility]04[facility]23 0416 Hugh George.RESULTS READ BACK BY SAME. Estimated Creatinine Clearance Calc 40.17 ml/min [facility] Estimated GFR (MDRD) Amer 66 mL/min >60 [facility] Comment on above: GFR Calc Estimated GFR (MDRD) Non-Af Amer 55 mL/min >60 [facility] Comment on above: Non- GFR Calc 13.7 SECONDS 11.7-14.9 [facility] 28.7 Seconds 24.1-36.2 [facility] 2.08 FEU/ug/m 0.27-0.49 [facility] No growth in 5 days. [facility] Oxygen (BldA) [Partial press ure]Ordered By: Juan Dupree on 02-04-2023 Oxygen (Bld) [Partial pressure] 71 mmHG 75-100 [facility] Oxygen (BldA) [Partial press ure]Ordered By: Raheel Yun on 02-04-2023 Oxygen (Bld) [Partial pressure] 77 mmHG 75-100 [facility] Platelets bldOrdered By: Clara Yun on 02-04-2023 Platelets (Bld) [#/Vol] 279 10*3/uL 150-450 [facility] [facility] Protein Test strip Ql (U)Ord ered By: Raheel Yun on 02-04-2023 Protein Ql (U) 100 mg/dl Negative [facility] Serum or plasma calcium marin urement (mass/volume)Ordered By: Raheel Yun on 02-04-2023 Calcium [Mass/Vol] 8.3 mg/dL 8.5-10.1 [facility] Serum or plasma creatinine m easurement (mass/volume)Ordered By: Raheel Yun on 02-04-2023 Creatinine [Mass/Vol] 1.06 mg/dL 0.55-1.02 [facility] Comment on above: The validity of the calculated GFR & GFRAA in patients over 70 years has not been determined. Clinical correlation is essential. Serum or plasma urea nitroge n measurement (mass/volume)Ordered By: Raheel Yun on 02-04-2023 Urea nitrogen [Mass/Vol] 8 mg/dL 7-18 [facility] Squamous epithelial cells de tection in urine sediment by light microscopyOrdered By: Raheel Yun on 02-04-2023 Epithelial cells.squamous LM Ql (Urine sed) 10-25 SEEN /hpf 5-10 [facility] Thin prep Papanicolaou smear with manual screeningOrdered By: Raheel Yun on 02-04-2023 Thin prep Papanicolaou smear with manual screening 7 5-15 [facility] Urine blood detectionOrdered By: Raheel Yun on 02-04-2023 RBC Ql (U) 250 /ul Negative [facility] RBC Ql (U) 0-5 SEEN /hpf 0-5 [facility] Urine clarityOrdered By: Clara Yun on 02-04-2023 Clarity (U) Clear Clear [facility] Urine color determinationOrd ered By: Raheel Yun on 02-04-2023 Color (U) Yellow Yellow [facility] Urine glucose detectionOrder ed By: Raheel Yun on 02-04-2023 Glucose Ql (U) Normal mg/dl Normal [facility] Urine leukocyte esterase det ection by dipstickOrdered By: Raheel Yun on 02-04-2023 Leukocyte esterase Test strip Ql (U) 100 /ul Negative [facility] Urine pHOrdered By: Raheel jeffries on 02-04-2023 pH (U) 5.0 [pH] 5.0 - 8.0 [facility] Urine sediment bacteria coun t by microscopy (number/high power field)Ordered By: Raheel Yun on 02-04-2023 Bacteria LM.HPF (Urine sed) [#/Area] 3 /[HPF] None Seen [facility] Urine specific gravity measu rementOrdered By: Raheel Yun on 02-04-2023 Specific gravity (U) [Rel density] 1.025 1.002-1.030 [facility] Urobilinogen Auto test strip Ql (U)Ordered By: Raheel Yun on 02-04-2023 Urobilinogen Ql (U) Normal mg/dl Normal [facility] pH measurementOrdered By: Kim Dupree on 02-04-2023 pH (Unsp spec) 7.32 [pH] 7.35-7.45 [facility] pH measurementOrdered By: Nitish Yun on 02-04-2023 pH (Unsp spec) 7.22 [pH] 7.35-7.45 [facility] Absolute lymphocyte countOrd ered By: Keith Howe on 02-03-2023 Lymphocytes Auto (Unsp spec) [#/Vol] 1.09 10*3/uL 0.83-4.51 [facility] Basophil percentageOrdered B y: Keith Howe on 02-03-2023 Basophil percentage 115 mg/dL 74-106 [facility] Basophil percentage 135 mmol/L 136-145 [facility] Basophil percentage 3.8 mmol/L 3.5-5.1 [facility] Basophil percentage 104 mmol/L 98-107 [facility] Basophils (Bld) [#/Vol] 7.2 10*3/uL 4.4-11.0 [facility] Basophils (Bld) [#/Vol] 5.2 10*3/uL 2.0-7.7 [facility] Basophils/100 WBC (Bld) 0.4 % 0-1 [facility] Basophils/100 WBC (Bld) 71.9 % 47-70 [facility] Basophils/100 WBC (Bld) 2.5 % 0-5 [facility] Chloride [Moles/Vol] 104 mmol/L 98-107 [facility] Eosinophils/100 WBC (Bld) 2.5 % 0-5 [facility] Glucose [Mass/Vol] 115 mg/dL 74-106 [facility] Comment on above: Fasting Glucose resu lt from 100 to 125 mg/dL suggests IMPAIRED HOMEOSTASIS per A.D.A. criteria. Neutrophils (Bld) [#/Vol] 5.2 10*3/uL 2.0-7.7 [facility] Neutrophils/100 WBC (Bld) 71.9 % 47-70 [facility] Potassium [Moles/Vol] 3.8 mmol/L 3.5-5.1 [facility] Sodium [Moles/Vol] 135 mmol/L 136-145 [facility] WBC (Bld) [#/Vol] 7.2 10*3/uL 4.4-11.0 [facility] Blood erythrocytes count (nu mber/volume)Ordered By: Keith Howe on 02-03-2023 RBC (Bld) [#/Vol] 4.84 10*6/uL 4.2-5.4 [facility] Blood hemoglobin measurement (mass/volume)Ordered By: Keith Howe on 02-03-2023 Hemoglobin (Bld) [Mass/Vol] 15.0 g/dL 12.0-15.0 [facility] Blood lymphocytes/100 leukoc ytesOrdered By: Keith Howe on 02-03-2023 Lymphocytes/100 WBC (Bld) 15.2 % 19-41 [facility] Blood monocytes/100 leukocyt esOrdered By: Keith Howe on 02-03-2023 Monocytes/100 WBC (Bld) 9.7 % 0-10 [facility] Blood platelet mean volumeOr dered By: Keith Howe on 02-03-2023 Platelet mean volume (Bld) [Entitic vol] 9.6 fL 6.2-12.0 [facility] Determination of erythrocyte mean corpuscular volume (MCV)Ordered By: Keith Howe on 02-03-2023 MCV (RBC) [Entitic vol] 92.1 fL 81-99 [facility] Hematocrit Auto (Bld) [Volum e fraction]Ordered By: Keith Howe on 02-03-2023 Hematocrit (Bld) [Volume fraction] 44.6 % 37-47 [facility] Influenza virus A and B and SARS-CoV-2 (COVID-19) Ag panel - Upper respiratory specimOrdered By: Keith Howe on 02-03-2023 SARS-CoV-2 (COVID-19) RNA BERENICE+probe Ql (Resp) [facility] Laboratory - Chemistry and C hemistry - challengeOrdered By: Keith Howe on 02-03-2023 CO2 [Moles/Vol] 23.0 mmol/L 21.0-32.0 [facility] Urea nitrogen/Creatinine [Mass ratio] 8.8 mg/mg 10- [facility] Laboratory - Hematology and Cell countsOrdered By: Keith Howe on 02-03-2023 Erythrocyte distribution width (RBC) [Entitic vol] 47.2 fL 35.1-43.9 [facility] Erythrocyte distribution width (RBC) [Ratio] 13.8 % 11.6-14.6 [facility] Immature granulocytes/100 WBC (Bld) 0.300 % 0.0-0.9 [facility] Comment on above: IG% - Immature Granu locytes (promyelocytes, myelocytes and metamyelocytes) > 1% indicates that a LEFT SHIFT is Present. MCH (RBC) [Entitic mass] 31.0 pg 27.0-32.0 [facility] Nucleated RBC/100 WBC (Bld) [Ratio] 0 % 0-5 [facility] MCHC Auto (RBC) [Mass/Vol]Or dered By: Keith Howe on 02-03-2023 MCHC (RBC) [Mass/Vol] 33.6 g/dL 32-36 [facility] No Panel InformationOrdered By: Keith Howe on 02-03-2023 Estimated Creatinine Clearance Calc 53.23 ml/min [facility] Estimated GFR (MDRD) Amer 92 mL/min >60 [facility] Comment on above: GFR Calc Estimated GFR (MDRD) Non-Af Amer 76 mL/min >60 [facility] Comment on above: Non- GFR Calc 31.0 pg 27.0-32.0 [facility] 13.8 % 11.6-14.6 [facility] 47.2 fl 35.1-43.9 [facility] 0.300 % 0.0-0.9 [facility] 0 % 0-5 [facility] 76 mL/min >60 [facility] 92 mL/min >60 [facility] 53.23 ml/min [facility] 8.8 RATIO 10 [facility] 23.0 mmol/L 21.0-32.0 [facility] Platelets bldOrdered By: Khurram Howe on 02-03-2023 Platelets (Bld) [#/Vol] 220 10*3/uL 150-450 [facility] RSV Ag Immune stain Ql (Tiss )Ordered By: Keith Howe on 02-03-2023 Rapid RSV (DFA) RSV [facility] RSV Ag EIA RSV [facility] Serum or plasma calcium marin urement (mass/volume)Ordered By: Keith Howe on 02-03-2023 Calcium [Mass/Vol] 8.9 mg/dL 8.5-10.1 [facility] Serum or plasma creatinine m easurement (mass/volume)Ordered By: Keith Howe on 02-03-2023 Creatinine [Mass/Vol] 0.80 mg/dL 0.55-1.02 [facility] Comment on above: The validity of the calculated GFR & GFRAA in patients over 70 years has not been determined. Clinical correlation is essential. Serum or plasma urea nitroge n measurement (mass/volume)Ordered By: Keith Howe on 02-03-2023 Urea nitrogen [Mass/Vol] 7 mg/dL 7-18 [facility] Thin prep Papanicolaou smear with manual screeningOrdered By: Keith Howe on 02-03-2023 Thin prep Papanicolaou smear with manual screening 8 5-15 [facility] Upper respiratory specimen i nfluenza A virus, influenza B virus, and severe acute resOrdered By: Keith Howe on 02-03-2023 Upper respiratory specimen influenza A virus, influenza B virus, and severe acute res [facility] Upper respiratory specimen influenza A virus, influenza B virus, and severe acute res [facility] CNOVSPon 01-25-2023 CNOVSP Visit (SP) Office ([place]) JONELLE CORONADO ([id number]) 1955 F [facility] Date Time Provider Department 01/25/23 10:40 AM JEEVAN BOSS During your visit today, we recorded the following information about you: Temperature Pulse Blood pressure Weight 97.4 degrees 88/minute 113/74 57.8 kg Height 1.562 m Jeevan Boss MD 01/25/2023 1:33 PM Signed HISTORY OF PRESENT ILLNESS: Jonelle Coronado is [...] Date APPENDECTOMY 1974 PAST SURGICAL HISTORY OF [id number] cardiac stent x4 PAST SURGICAL HISTORY OF [...] which included preparing to see the patient, [id number] patient care, completing clinical documentation, obtaining and/or reviewing separately obtained history, performing a medically appropriate examination, counseling and educating the patient/family/caregiv er, ordering medications, tests, or procedures, independently interpreting results (not separately reported), and communicating results to the patient/family/caregiv er. Electronically Signed: Jeevan Boss MD January 25, 2023 10:52 AM Referring Provider: PAOLA FRIED [[id number]] Allergies As of Date: 01/25/2023 Noted Allergy Reaction PERCOCET (OXYCODONE-ACETAMINOPH EN)06/10/2014 8 - GI Upset VICODIN (HYDROCODONE-ACETAMINO PHE*06/10/2014 8 - GI Upset Date Reviewed: 01/25/2023 Reviewed by: Myra Holland Ma, MA - Fully Assessed Reason for Visit: Established Patient [175] Primary Visit Diagnosis:Malignant neoplasm of unspecified part of unspecified bronchus or lung (HCC) [C34.90] Order(s):CT CHEST WO IVCON [[id number]] Order #: [id number] FUTURE Follow-up and Disposition History for Encounter Date Provider Department Center 01/25/2023 [id number] BOSS [place] Prescriptions as of 01/25/2023 - hydrocortisone (CORTEF) 10 mg tablet 20mg orally 7 AM AND 10mg orally 7 PM. - escitalopram oxalate (LEXAPRO) 20 mg tablet Take 20 mg by mouth once daily. - aspirin 81 mg ca (more content not included)... 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 RESULT: Lines, tubes, and devices: None. Lungs and pleura: Biapical scarring and subpleural opacities identified, likely post inflammatory. No consolidation. No lung mass. No pleural effusion. No pneumothorax. Cardiomediastinal silhouette: Normal cardiomediastinal silhouette. There are coronary stents in place. Bones and soft tissues: Status post median sternotomy and CABG. IMPRESSION: No acute radiographic abnormality. [employer]: PHILIPPE Transcribe Date/Time: Jan 26 2023 9:55A Dictated by : MAXIM NICOLE MD This examination was interpreted and the report reviewed and electronically signed by: MAXIM NICOLE MD on Jan 26 2023 10:19AM EST [id number] Normal [facility] 36on 01-10-2023 36 Last Office Visit: 04/20/22 Medication Requested: Cilostazol Quantity: 90 days Prescribing Provider: Simi Castillo PA-C Pharmacy Confirmed? Yes Order Pending? yes Other Comments: Follow up 1 year [facility] XR WRIST 3V PA/LAT/OBL RTon 08-19-2022 XR WRIST 3V PA/LAT/OBL RT * * *Final Report* * * DATE OF EXAM: Aug 19 2022 10:16AM [id number] - XR WRIST 3V PA/LAT/OBL RT / PROCEDURE REASON: S52.91 * * * * Physician Interpretation * * * * HISTORY: 66-YEAR-OLD FEMALE WITH S52.91. right wrist fx follow up from July 15 has some pain ulnar side with movements TECHNIQUE: XR WRIST 3V PA/LAT/OBL RT Laterality: RIGHT Number of different views (projections): 3 COMPARISON: 07/23/2022 RESULT: Increased sclerosis distal radial fracture consistent with healing. Carpus is intact. Films taken out of cast material. IMPRESSION: HEALING DISTAL RADIAL FRACTURE. [employer]ader: PSCCaesar Transcribe Date/Time: Aug 19 2022 7:23P Dictated by : JANICE GUERRA MD This examination was interpreted and the report reviewed and electronically signed by: JANICE GUERRA MD on Aug 19 2022 7:24PM EST [id number] Normal [facility] XR WRIST GENERAL 3V PA/LAT/O BL RIGHTon 08-19-2022 [facility] XR FOREARM GENERAL 2V AP/LAT RIGHTon 07-23-2022 [facility] XR WRIST GENERAL 3V PA/LAT/O BL RIGHTon 07-23-[address] [facility] [address] CHEST WO IVCONon 07-14-19 [facility] Basophil percentageOrdered B y: Karime Roblero on 06-30-2022 Bilirubin [Mass/Vol] 0.30 mg/dL 0.20-1.00 [facility] Comment on above: For patients on eltr ombopag therapy, use of Dimension [place] TBIL is not recommended. Cholesterol [Mass/Vol] 162 mg/dL <200 [facility] Comment on above: <200 mg/dL Desirable 200-240 mg/dL Borderline >240 mg/dL High Risk Protein [Mass/Vol] 7.2 g/dL 6.4-8.2 [facility] Triglyceride [Mass/Vol] 155 mg/dL <199 [facility] Comment on above: The drugs N-Acetylcy steine and Metamizole may falsely depress this assay.Serum Triglycerides Reference Interval Normal <150 mg/dL Borderline high 150 - 199 mg/dL High 200 - 499 mg/dL Very High > or = 500 mg/dL Direct bilirubinOrdered By: Karime Roblero on 06-30-2022 Bilirubin.direct [Mass/Vol] 0.06 mg/dL 0.00-0.30 [facility] Laboratory - Chemistry and C hemistry - challengeOrdered By: Karime Roblero on 06-30-2022 ALP [Catalytic activity/Vol] 66 U/L 45-117 [facility] ALT [Catalytic activity/Vol] 32 U/L 13-56 [facility] Globulin (S) [Mass/Vol] 4.0 g/dL 2.2-4.2 [facility] Serum or plasma albumin marin urement (mass/volume)Ordered By: Karime Roblero on 06-30-2022 Albumin [Mass/Vol] 3.2 g/dL 3.2-5.0 [facility] Serum or plasma cholesterol in HDL measurement (mass/volume)Ordered By: Karime Roblero on 06-30-2022 Cholesterol in HDL [Mass/Vol] 60 mg/dL >40 [facility] Comment on above: The drugs N-Acetylcy steine and Metamizole may falsely depress this assay. Reference Range HDL <40 mg/dL Low HDL Cholesterol HDL >or= 60 mg/dL High HDL Cholesterol Serum or plasma cholesterol in VLDL measurement (mass/volume)Ordered By: Karime Roblero on 06-30-2022 Cholesterol in VLDL [Mass/Vol] 31 mg/dL 5-40 [facility] Serum or plasma low density lipoprotein (LDL) cholesterol measurement (mass/volume)Ordered By: Karime Roblero on 06-30-2022 Cholesterol in LDL [Mass/Vol] 71 mg/dL 0-130 [facility] Thin prep Papanicolaou smear with manual screeningOrdered By: Karime Roblero on 06-30-2022 Thin prep Papanicolaou smear with manual screening 21 U/L 15-37 [facility] No Panel InformationOrdered By: Dane Guzmán on 04-27-2022 Left CCA dist EDV 13.1 cm/s [employer] Work Phone: Left CCA dist PSV 40.5 cm/s [employer] Work Phone: Left CCA mid EDV 19.60 cm/s [employer] Work Phone: Left CCA mid PSV 58.90 cm/s [email or web address] Work Phone: Left CCA prox EDV 17.4 cm/s [employer] Work Phone: Left CCA prox PSV 64.5 cm/s [employer] Work Phone: Left ECA EDV 10.80 cm/s [employer] Work Phone: Left ECA PSV 73.1 cm/s [employer] Work Phone: Left ICA dist EDV 20.7 cm/s [employer] Work Phone: Left ICA dist PSV 54.6 cm/s [employer] Work Phone: Left ICA mid EDV 29.1 cm/s [employer] Work Phone: Left ICA mid PSV 99.2 cm/s [employer] Work Phone: Left ICA prox EDV 66.2 cm/s [employer] Work Phone: Left ICA prox PSV 173.6 cm/s [employer] Work Phone: Left ICA/CCA PSV 2.95 [employer] Work Phone: Left subclavian mid EDV 0.0 cm/s [employer] Work Phone: Left subclavian mid PSV 86.8 cm/s [employer] Work Phone: Left vertebral EDV 16.90 cm/s [employer] Work Phone: Left vertebral PSV 46.1 cm/s [employer] Work Phone: Right CCA dist EDV 18.2 cm/s [employer] Work Phone: Right cca dist PSV 45.2 cm/s [employer] Work Phone: Right CCA mid EDV 19.40 cm/s [employer] Work Phone: Right CCA mid PSV 59.60 cm/s [employer] Work Phone: Right CCA prox EDV 18.3 cm/s [employer] Work Phone: Right CCA prox PSV 68.3 cm/s [employer] Work Phone: Right ECA EDV 10.80 cm/s [employer] Work Phone: Right ECA PSV 76.4 cm/s [employer] Work Phone: Right ICA dist EDV 22.4 cm/s [employer] Work Phone: Right ICA dist PSV 54.5 cm/s [employer] Work Phone: [phone] Right ICA mid EDV 21.9 cm/s [employer] Work Phone: [phone] Right ICA mid PSV 72.1 cm/s [employer] Phone: Right ICA prox EDV 26.8 cm/s [employer] Work Phone: Right ICA prox PSV 106.0 cm/s [employer] Work Phone: Right ICA/CCA PSV 1.78 [employer] Work Phone: Right subclavian mid EDV 10.6 cm/s [employer] Work Phone: Right subclavian mid PSV 97.0 cm/s [employer] Work Phone: [phone] Right vertebral EDV 11.30 cm/s [employer] Work Phone: Right vertebral PSV 39.0 cm/s [employer] Work Phone: No Panel Informationon 04-27 <50% stenosis in the right internal carotid artery. Calcific plaque (proximal) in the right internal carotid artery. 50-59% stenosis in the left internal carotid artery. Moderate and calcific plaque (proximal) in the left internal carotid artery. Normal antegrade flow involving the right vertebral artery. Normal antegrade flow involving the left vertebral artery. Right Carotid Common Carotid Artery: Patent. Calcific plaque (distal). Carotid Bulb: Calcific plaque. Internal Carotid Artery: <50% stenosis. Minimal and calcific plaque (proximal). External Carotid Artery: Patent. Vertebral Artery: Flow is antegrade. Subclavian Artery: Normal. Left Carotid Common Carotid Artery: Patent. Mild and calcific plaque (distal). Carotid Bulb: Calcific plaque. Internal Carotid Artery: 50-59% stenosis in the proximal ICA. Moderate and calcific plaque (proximal). External Carotid Artery: Patent. Vertebral Artery: Flow is antegrade. Subclavian Artery: Normal. Vamp Seamer Details A gonzalez scale, color Doppler imaging and spectral Doppler analysis ultrasound was performed. During the study longitudinal and transverse views were obtained. Pulsed wave doppler was performed. The exam was performed with the patient in the supine position. Overall the study quality was adequate. CV CPACS XR Chest PA and Lateralon IMPRESSION: Stable exam without acute findings. 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 Lungs and pleura: No consolidation. No lung mass. No pleural effusion. No pneumothorax. Cardiomediastinal silhouette: Stable cardiac silhouette and mediastinal contour. Coronary stents are visualized. Bones and soft tissues: The spine shows degenerative changes. Status post median sternotomy. DIVISION OF RADIOLOGY Provider, 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 Lungs and pleura: No consolidation. No lung mass. No pleural effusion. No pneumothorax. Cardiomediastinal silhouette: Stable cardiac silhouette and mediastinal contour. Coronary stents are visualized. Bones and soft tissues: The spine shows degenerative changes. Status post median sternotomy. IMPRESSION IMPRESSION: Stable exam without acute findings. 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 Transcribe Date/Time: Jan 13 2022 2:40P Dictated by : MAXIM NICOLE MD This examination was interpreted and the report reviewed and electronically signed by: MAXIM NICOLE MD on Jan 13 2022 2:42PM EST [facility] Radiology Study observation (narrative) [facility] XR Chest PA and LateralOrder ed By: [facility] Provider on 01-13-[address] [facility] [address] CHEST W IVCONon [facility] CTA ABDOMINAL AORTA W BILAT RUNOFF W WO CONTRASTOrdered By: Jessica Tellez on 09-15-2020 Patient Name: JONELLE CORONADO Computed Tomography ACCESSION EXAM DATE/TIME PROCEDURE ORDERING PROVIDER [id number] 09/15/2020 13:40 EDT CTA Abd Aorta + JESSICA TELLEZ Iliofemoral CPT code 74629 [id number] Reason For Exam (CTA Abd Aorta + Iliofemoral) Atherosclerosis of [place] arteries of extremities with intermittent claudication, bilateral legs Report CTA abdomen and pelvis and bilateral lower extremities with and without contrast HISTORY: Atherosclerosis Protocol: 1 mm axial images with and without intravenous contrast, 3-D rendering performed by me on an independent workstation Small hiatal hernia. The liver, gallbladder, spleen, pancreas, adrenals, and kidneys are normal. No evidence of bowel inflammation or bowel obstruction. No free fluid. Bladder is unremarkable. Calcified aortoiliac atherosclerosis. The infrarenal abdominal aorta narrows to a caliber of 6 mm diameter. The distal abdominal aorta narrows to a caliber of 4 x 7 mm. High-grade stenosis at the origin of the left common iliac artery. Occlusion of the left external iliac artery. Mild to moderate stenoses in the right external iliac artery. 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 Atherosclerotic 50 percent narrowing at the origin of the SMA. No evidence of a main renal artery stenosis. The inferior mesenteric artery is patent. Mild to moderate stenoses in the bilateral common and superficial femoral arteries. Bilateral popliteal arteries are widely patent. Three artery runoff below the knee on both sides. IMPRESSION: Significant stenoses in the infrarenal and distal abdominal aorta. High-grade stenosis in the left common iliac artery at its origin. Occlusion of the left external iliac artery. 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 Atherosclerotic 50 percent narrowing at the origin of the SMA. Computed Tomography Report Report Dictated on --- Final --- Dictating Physician: MD MCGHEE MALAY Signed Date and Time: 09/15/2020 3:08 pm Signed by: MD MCGHEE MALAY Transcribed Date and Time: 09/15/2020 3:09 [facility] Work Phone: [facility] Incoming Radiology Results From [facility] - 09/15/2020 3:09 PM EDT Patient Name: JONELLE CORONADO Computed Tomography ACCESSION EXAM DATE/TIME PROCEDURE ORDERING PROVIDER [id number] 09/15/2020 13:40 EDT CTA Abd Aorta + JESSICA TELLEZ Iliofemoral CPT code 05893 Q9967 Reason For Exam (CTA Abd Aorta + Iliofemoral) Atherosclerosis of [place] arteries of extremities with intermittent claudication, bilateral legs Report CTA abdomen and pelvis and bilateral lower extremities with and without contrast HISTORY: Atherosclerosis Protocol: 1 mm axial images with and without intravenous contrast, 3-D rendering performed by me on an independent workstation Small hiatal hernia. The liver, gallbladder, spleen, pancreas, adrenals, and kidneys are normal. No evidence of bowel inflammation or bowel obstruction. No free fluid. Bladder is unremarkable. Calcified aortoiliac atherosclerosis. The infrarenal abdominal aorta narrows to a caliber of 6 mm diameter. The distal abdominal aorta narrows to a caliber of 4 x 7 mm. High-grade stenosis at the origin of the left common iliac artery. Occlusion of the left external iliac artery. Mild to moderate stenoses in the right external iliac artery. 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 Atherosclerotic 50 percent narrowing at the origin of the SMA. No evidence of a main renal artery stenosis. The inferior mesenteric artery is patent. Mild to moderate stenoses in the bilateral common and superficial femoral arteries. Bilateral popliteal arteries are widely patent. Three artery runoff below the knee on both sides. IMPRESSION: Significant stenoses in the infrarenal and distal abdominal aorta. High-grade stenosis in the left common iliac artery at its origin. Occlusion of the left external iliac artery. 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 Atherosclerotic 50 percent narrowing at the origin of the SMA. Computed Tomography Report Report Dictated on --- Final --- Dictating Physician: MD MCGHEE MALAY Signed Date and Time: 09/15/2020 3:08 pm Signed by: MD MCGHEE MALAY Transcribed Date and Time: 09/15/2020 3:09 [facility] Work Phone: [facility] Work Phone: CTA Abd Aorta + Iliofemoralo n 09-15-2020 CTA Abd Aorta + Iliofemoral Patient Name: JONELLE CORONADO Computed Tomography ACCESSION EXAM DATE/TIME PROCEDURE ORDERING PROVIDER [id number] 09/15/2020 13:40 EDT CTA Abd Aorta + JESSICA TELLEZ Iliofemoral CPT code 59733 [id number] Reason For Exam (CTA Abd Aorta + Iliofemoral) Atherosclerosis of [place] arteries of extremities with intermittent claudication, bilateral legs Report CTA abdomen and pelvis and bilateral lower extremities with and without contrast HISTORY: Atherosclerosis Protocol: 1 mm axial images with and without intravenous contrast, 3-D rendering performed by me on an independent workstation Small hiatal hernia. The liver, gallbladder, spleen, pancreas, adrenals, and kidneys are normal. No evidence of bowel inflammation or bowel obstruction. No free fluid. Bladder is unremarkable. Calcified aortoiliac atherosclerosis. The infrarenal abdominal aorta narrows to a caliber of 6 mm diameter. The distal abdominal aorta narrows to a caliber of 4 x 7 mm. High-grade stenosis at the origin of the left common iliac artery. Occlusion of the left external iliac artery. Mild to moderate stenoses in the right external iliac artery. 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 Atherosclerotic 50 percent narrowing at the origin of the SMA. No evidence of a main renal artery stenosis. The inferior mesenteric artery is patent. Mild to moderate stenoses in the bilateral common and superficial femoral arteries. Bilateral popliteal arteries are widely patent. Three artery runoff below the knee on both sides. IMPRESSION: Significant stenoses in the infrarenal and distal abdominal aorta. High-grade stenosis in the left common iliac artery at its origin. Occlusion of the left external iliac artery. 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 Atherosclerotic 50 percent narrowing at the origin of the SMA. Computed Tomography Report Report Dictated on Final Dictating Physician: MD MCGHEE MALAY Signed Date and Time: 09/15/2020 3:08 pm Signed by: MD MCGHEE MALAY Transcribed Date and Time: 09/15/2020 3:09 Normal [facility] Creatinineon 08-22-2020 Creatinine [Mass/Vol] 0.70 mg/dL Normal 0.52-1.25 [facility] Comment on above: Performed By: #### C RTN3 #### [address] [id number] eGFR OTHER > 90.0 Normal >60 [facility] Comment on above: Result Comment: KDIG O guidelines provide the following GFR categories: Stage GFR(ml/min/1.73 m2) Terms G1 >=90 Normal or high G2 60-89 Mildly decreased* G3a 45-59 Mildly to moderately decreased G3b 30-44 Moderately to severely decreased G4 15-29 Severely decreased G5 <15 Kidney failure *Relative to young adult level. In the absence of evidence of kidney damage, neither GFR category G1 nor G2 fulfill the criteria for CKD. The CKD-EPI equation is validated in individuals 18 years of age and older. Currently the best equation for estimating glomerular filtration rate (GFR) from serum creatinine in children is the Bedside Collins equation. It is less accurate in patients with extremes of muscle mass, restriction of dietary protein, ingestion of creatine, extra-renal metabolism of creatinine, or treatment with medications that affect renal tubular creatinine secretion. Performed By: #### C RTN3 #### [facility] [address] [place] [address] GFR/1.73 sq M.predicted among blacks MDRD (S/P/Bld) [Vol rate/Area] mL/min/{1.73_m2} Normal >60 [facility] Comment on above: Performed By: #### C RTN3 #### [facility] [address] [place] [id number] Creatinine, SerumOrdered By: Jessica Tellez on 08-22-2020 Creatinine [Mass/Vol] 0.7 mg/dL 0.52 - 1.25 mg/dL [facility] Work Phone: EGFR IF NonAfrican [place] >90.0 >60 mL/min [facility] Work Phone: Comment on above: KDIGO guidelines pro vide the following GFR categories: Stage GFR(ml/min/1.73 m2) Terms G1 >=90 Normal or high G2 60-89 Mildly decreased* G3a 45-59 Mildly to moderately decreased G3b 30-44 Moderately to severely decreased G4 15-29 Severely decreased G5 <15 Kidney failure *Relative to young adult level. In the absence of evidence of kidney damage, neither GFR category G1 nor G2 fulfill the criteria for CKD. The CKD-EPI equation is validated in individuals 18 years of age and older. Currently the best equation for estimating glomerular filtration rate (GFR) from serum creatinine in children is the Bedside Collins equation. It is less accurate in patients with extremes of muscle mass, restriction of dietary protein, ingestion of creatine, extra-renal metabolism of creatinine, or treatment with medications that affect renal tubular creatinine secretion. GFR/1.73 sq M.predicted among blacks MDRD (S/P/Bld) [Vol rate/Area] mL/min/{1.73_m2} >60 mL/min [facility] Work Phone: Test Performed by [facility], [address] [place] [phone] [facility] Work Phone: [facility] Work Phone: Vital Signs Date Time Vital Sign Value Performing Clinician Facility 05-19-2023 11:32-0400 Body height 160.02 cm CLINICAL LAB CLERK-C Patsy Stafford Work Phone: [facility] 05-19-2023 11:30-0400 Body mass index (BMI) [Ratio] 22.3 kg/m2 CLINICAL LAB CLERK-C Patsy Stafford Work Phone: [facility] 05-19-2023 11:30-0400 Body weight 57.15 kg CLINICAL LAB CLERK-C Patsy Stafford Work Phone: [facility] 05-19-2023 11:30-0400 Diastolic blood pressure 72 mm[Hg] CLINICAL LAB CLERK-C Patsykishore Stafford Work Phone: [facility] 05-19-2023 11:30-0400 Heart rate 71 /min [facility] Work Phone: [phone] [place] [address] 05-19-2023 11:30-0400 Respiratory rate 18 /min CLINICAL LAB CLERK-C Patsykishore Stafford Work Phone: [facility] 05-19-2023 11:30-0400 SaO2% (BldA) [Mass fraction] 95 % CLINICAL LAB CLERK- Patsy Stafford Work Phone: [facility] 05-19-2023 11:30-0400 Systolic blood pressure 108 mm[Hg] [facility] Work [facility]: [facility] 04-30-2023 08:04-0400 Body temperature 97.2 [degF] Dr. Harvey Chow [facility] 04-30-2023 08:04-0400 Diastolic blood pressure 76 mm[Hg] Dr. Gabriel [facility] 04-30-2023 08:04-0400 Heart rate 80 /min Dr. Harvey Chow [facility] 04-30-2023 08:04-0400 Respiratory rate 18 /min Dr. Gabriel [facility] 04-30-2023 08:04-0400 SaO2% (BldA) [Mass fraction] 92 % Dr. Gabriel [facility] 04-30-2023 08:04-0400 Systolic blood pressure 138 mm[Hg] Dr. Gabriel [facility] 04-30-2023 02:50-0400 Inhaled oxygen flow rate 2 L/min Dr. Gabriel [facility] 04-29-2023 14:07-0400 Body height 160.[address] Harvey Chow [facility] 04-29-2023 14:07-0400 Body weight 59.[address] Gabriel [facility] 04-29-2023 10:31-0400 Body mass index (BMI) [Ratio] 23.1 kg/m2 Dr. Gabriel [facility] 03-08-2023 10:28-0500 Body height 157.[address] Gabriel [facility] 03-08-2023 10:28-0500 Body mass index (BMI) [Ratio] 22.3 kg/m2 Dr. Gabriel [facility] 03-08-2023 10:28-0500 Body weight 55.[address] Gabriel [facility] 03-08-2023 10:28-0500 Diastolic blood pressure 65 mm[Hg] Dr. Gabriel [facility] 03-08-2023 10:28-0500 Heart rate 83 /min Dr. Gabriel [facility] 03-08-2023 10:28-0500 Respiratory rate 18 /min Dr. Gabriel [facility] 03-08-2023 10:28-0500 SaO2% (BldA) [Mass fraction] 96 % Dr. Gabriel [facility] 03-08-2023 10:28-0500 Systolic blood pressure 109 mm[Hg] Dr. Gabriel [facility] 02-11-2023 15:04-0500 Heart rate 88 /min Dr. Gabriel Claudine [facility] 02-11-2023 15:04-0500 Respiratory rate 20 /min Dr. Gabriel [facility] 02-11-2023 15:00-0500 Inhaled oxygen flow rate 4 L/min Dr. Gabriel [facility] 02-11-2023 14:00-0500 Body temperature 97.4 [degF] Dr. Harvey [facility] 02-11-2023 14:00-0500 Diastolic blood pressure 69 mm[Hg] Dr. Gabriel [facility] 02-11-2023 14:00-0500 SaO2% (BldA) [Mass fraction] 92 % Dr. Gabriel [facility] 02-11-2023 14:00-0500 Systolic blood pressure 117 mm[Hg] Dr. Harvey Chow [facility] 02-11-2023 05:59-0500 Body mass index (BMI) [Ratio] 23.6 kg/m2 Dr. Gabriel [facility] 02-11-2023 05:59-0500 Body weight 58.[address] Gabriel [facility] 02-10-2023 07:20-0500 Inhaled oxygen concentration 35 % Dr. Gabriel [facility] 02-09-2023 09:18-0500 Body height 157.[address] Gabriel [facility] 02-04-2023 06:32-0500 Body temperature 98.8 [degF] Dr. Gabriel [facility] 02-04-2023 06:32-0500 Diastolic blood pressure 79 mm[Hg] Dr. Gabriel [facility] 02-04-2023 06:32-0500 Heart rate 115 /min Dr. Gabriel [facility] 02-04-2023 06:32-0500 Respiratory rate 39 /min Dr. Gabriel [facility] 02-04-2023 06:32-0500 SaO2% (BldA) [Mass fraction] 94 % Dr. Gabriel [facility] 02-04-2023 06:32-0500 Systolic blood pressure 96 mm[Hg] Dr. Gabriel [facility] 02-04-2023 05:33-0500 Inhaled oxygen concentration 45 % Dr. Gabriel [facility] 02-04-2023 03:03-0500 Inhaled oxygen flow rate 12 L/min Dr. Gabriel [facility] 02-04-2023 02:59-0500 Body height 157.[address] Gabriel [facility] 02-04-2023 02:59-0500 Body mass index (BMI) [Ratio] 23.8 kg/m2 Dr. Gabriel [facility] 02-04-2023 02:59-0500 Body weight 59.[address] Gabriel Claudine [facility] 02-03-2023 11:49-0500 Body temperature 98.1 [degF] Dr. Harvey Chow [facility] 02-03-2023 11:49-0500 Diastolic blood pressure 67 mm[Hg] Dr. Gabriel [facility] 02-03-2023 11:49-0500 Heart rate 97 /min Dr. Gabriel [facility] 02-03-2023 11:49-0500 Inhaled oxygen flow rate 2 L/min Dr. Gabriel [facility] 02-03-2023 11:49-0500 Respiratory rate 20 /min Dr. Gabriel [facility] 02-03-2023 11:49-0500 SaO2% (BldA) [Mass fraction] 92 % Dr. Gabriel [facility] 02-03-2023 11:49-0500 Systolic blood pressure 114 mm[Hg] Dr. Gabriel [facility] 02-03-2023 09:26-0500 Body mass index (BMI) [Ratio] 24.2 kg/m2 Dr. Gabriel [facility] 02-03-2023 09:26-0500 Body weight [address] Gabriel [facility] 01-25-2023 10:41-0500 Body height 156.2 cm Jeevan Boss MD Work Phone: [facility] 01-25-2023 10:41-0500 Body temperature 97.39 [degF] Jeevan Boss MD Work Phone: [facility] 01-25-2023 10:41-0500 Body weight 57.83 kg Jeevan Boss MD Work Phone: [facility] 01-25-2023 10:41-0500 Diastolic blood pressure 74 mm[Hg] Jeevan Boss MD Work Phone: [facility] 01-25-2023 10:41-0500 Heart rate 88 /min Jeevan Boss MD Work Phone: [facility] 01-25-2023 10:41-0500 SaO2% (BldA) [Mass fraction] 96 % Jeevan Boss MD Work Phone: [facility] 01-25-2023 10:41-0500 Systolic blood pressure 113 mm[Hg] Jeevan Boss MD Work Phone: [facility] 01-03-2023 10:03-0500 Body mass index (BMI) [Ratio] 22.3 kg/m2 Dr. Gabriel [facility] 01-03-2023 10:03-0500 Body weight 57.[address] Harvey Chow [facility] 01-03-2023 10:03-0500 Diastolic blood pressure 62 mm[Hg] Dr. Gabriel [facility] 01-03-2023 10:03-0500 Heart rate 86 /min Dr. Gabriel Claudine [facility] 01-03-2023 10:03-0500 Respiratory rate 18 /min Dr. Harvey Chow [facility] 01-03-2023 10:03-0500 SaO2% (BldA) [Mass fraction] 94 % Dr. Gabriel [facility] 01-03-2023 10:03-0500 Systolic blood pressure 104 mm[Hg] Dr. Harvey Chow [facility] 07-19-2022 11:08-0400 Body height 160.[address] Harvey Chow Work Phone: [facility] 07-19-2022 11:08-0400 Body mass index (BMI) [Ratio] 23.2 kg/m2 Dr. Harvey Chow Work Phone: [facility] 07-19-2022 11:08-0400 Body temperature 96.2 [degF] Dr. Harvey Chow Work Phone: [facility] 07-19-2022 11:08-0400 Body weight 59.[address] Harvey Chow Work Phone: [facility] 07-19-2022 11:08-0400 Diastolic blood pressure 85 mm[Hg] Dr. Harvey Chow Work Phone: [facility] 07-19-2022 11:08-0400 Heart rate 87 /min Dr. Harvey Chow Work Phone: [facility] 07-19-2022 11:08-0400 Respiratory rate 16 /min Dr. Harvey Chow Work Phone: [facility] 07-19-2022 11:08-0400 SaO2% (BldA) [Mass fraction] 97 % Dr. Harvey Chow Work Phone: [facility] 07-19-2022 11:08-0400 Systolic blood pressure 115 mm[Hg] Dr. Harvey Chow Work Phone: [facility] 07-19-2022 10:18-0400 Body height 156 cm Paola Fried [employer]AL [employer] TE[employer]ING LABORER Work Phone: [facility] 07-19-2022 10:18-0400 Body temperature 97.81 [degF] Paola Fried CENTRAL STERILE TECH.LANDSCAPING AND GROUNDSKEEPING LABORER Work Phone: [facility] 07-19-2022 10:18-0400 Body weight 59.65 kg [place] Fried CENTRAL STERILE TECH.LANDSC[employer]ING AND GROUNDSKEEPING LABORER Work Phone: [facility] 07-19-2022 10:18-0400 Diastolic blood pressure 82 mm[Hg] [place] Fried CENTRAL STERILE TECH.LANDSCAPING AND GROUNDSKEEPING LABORER Work Phone: [facility] 07-19-2022 10:18-0400 Heart rate 90 /min [place] Fried CENTRAL STERILE TECH.LANDSC[employer]ING AND GROUNDSKEEPING LABORER Work Phone: [facility] 07-19-2022 10:18-0400 SaO2% (BldA) [Mass fraction] 95 % [place] Fried CENTRAL STERILE TECH.LANDSC[employer]ING AND GROUNDSKEEPING LABORER Work Phone: [facility] 07-19-2022 10:18-0400 Systolic blood pressure 123 mm[Hg] Paola Fried CENTRAL STERILE TECH.[employer]SC[employer]ING AND GROUNDSKEEPING LABORER Work Phone: [facility] 06-30-2022 11:04-0400 Body mass index (BMI) [Ratio] 23.3 kg/m2 Dr. Harvey Chow Work Phone: [facility] 06-30-2022 11:04-0400 Body weight 59.[address] Harvey Chow Work Phone: [facility] 06-30-2022 11:04-0400 Diastolic blood pressure 59 mm[Hg] Dr. Harvey Chow Work Phone: [facility] 06-30-2022 11:04-0400 Heart rate 83 /min Dr. Harvey Chow Work Phone: [facility] 06-30-2022 11:04-0400 Respiratory rate 18 /min Dr. Harvey Chow Work Phone: [facility] 06-30-2022 11:04-0400 SaO2% (BldA) [Mass fraction] 95 % Dr. Harvey Chow Work Phone: [facility] 06-30-2022 11:04-0400 Systolic blood pressure 107 mm[Hg] Dr. Harvey Chow Work Phone: [facility] 04-20-2022 13:33-0500 Body height 160 cm Simi Castillo PA-C Work Phone: [facility] 04-20-2022 13:33-0500 Body mass index (BMI) [Ratio] 23.38 kg/m2 Simi Castillo PA-C Work Phone: [facility] 04-20-2022 13:33-0500 Body weight 59.88 kg Simi Castillo PA-C Work Phone: [facility] 04-20-2022 13:33-0500 Diastolic blood pressure 79 mm[Hg] Simi Castillo PA-C Work Phone: [facility] 04-20-2022 13:33-0500 Heart rate 109 /min Simi Castillo PA-C Work Phone: [facility] 04-20-2022 13:33-0500 Systolic blood pressure 117 mm[Hg] Simi Castillo PA-C Work Phone: [facility] 01-13-2022 14:52-0500 Body temperature 98.4 [degF] Eliud Maya MD Work Phone: [facility] 01-13-2022 14:52-0500 Body weight 59.42 kg Eliud Maya MD Work Phone: [facility] 01-13-2022 14:52-0500 Diastolic blood pressure 85 mm[Hg] Eliud Maya MD Work Phone: [facility] 01-13-2022 14:52-0500 Heart rate 104 /min Eliud Maya MD Work Phone: [facility] 01-13-2022 14:52-0500 SaO2% (BldA) [Mass fraction] 94 % Eliud Maya MD Work Phone: [facility] 01-13-2022 14:52-0500 Systolic blood pressure 126 mm[Hg] Eliud Maya MD Work Phone: [facility] 07-14-2021 10:59-0400 Body height 157.5 cm Eliud Maya MD Work Phone: [facility] 07-14-2021 10:59-0400 Body temperature 98.29 [degF] Eliud Maya MD Work Phone: [facility] 07-14-2021 10:59-0400 Body weight 56.47 kg Eliud Maya MD Work Phone: [facility] 07-14-2021 10:59-0400 Diastolic blood pressure 68 mm[Hg] Eliud Maya MD Work Phone: [facility] 07-14-2021 10:59-0400 Heart rate 90 /min Eliud Maya MD Work Phone: [facility] 07-14-2021 10:59-0400 SaO2% (BldA) [Mass fraction] 95 % Eliud Maya MD Work Phone: [facility] 07-14-2021 10:59-0400 Systolic blood pressure 100 mm[Hg] Eliud Maya MD Work Phone: [facility] 06-17-2021 09:21-0400 Body height 160.[address] Harvey Chow Work Phone: [facility] Work Phone: 06-17-2021 09:21-0400 Body mass index (BMI) [Ratio] 21.9 kg/m2 Dr. Harvey Chow Work Phone: [facility] Work Phone: 06-17-2021 09:21-0400 Body temperature 97.5 [degF] Dr. Harvey Chow Work Phone: [facility] Work Phone: 06-17-2021 09:21-0400 Body weight [address] Harvey Chow Work Phone: [facility] Work Phone: 06-17-2021 09:21-0400 Diastolic blood pressure 95 mm[Hg] Dr. Harvey Chow Work Phone: [facility] Work Phone: 06-17-2021 09:21-0400 Heart rate 104 /min Dr. Harvey Chow Work Phone: [facility] Work Phone: 06-17-2021 09:21-0400 Respiratory rate 16 /min Dr. Harvey Chow Work Phone: [facility] Work Phone: 06-17-2021 09:21-0400 SaO2% (BldA) [Mass fraction] 98 % Dr. Harvey Chow Work Phone: [facility] Work Phone: 06-17-2021 09:21-0400 Systolic blood pressure 140 mm[Hg] Dr. Harvey Chow Work Phone: [facility] Work Phone: 05-22-2021 09:47-0400 Body weight 55.[address] Harvey Chow Work Phone: [facility] Work Phone: 05-22-2021 09:47-0400 Diastolic blood pressure 62 mm[Hg] Dr. Harvey Chow Work Phone: [facility] Work Phone: 05-22-2021 09:47-0400 Heart rate 88 /min Dr. Harvey Chow Work Phone: [facility] Work Phone: 05-22-2021 09:47-0400 Respiratory rate 18 /min Dr. Harvey Chow Work Phone: [facility] Work Phone: 05-22-2021 09:47-0400 Systolic blood pressure 110 mm[Hg] Dr. Harvey Chow Work Phone: [facility] Work Phone: 05-05-2021 10:02-0400 Body mass index (BMI) [Ratio] 21.7 kg/m2 Dr. Harvey Chow Work Phone: [facility] Work Phone: 05-05-2021 10:02-0400 Body temperature 98.3 [degF] Dr. Harvey Chow Work Phone: [facility] Work Phone: 05-05-2021 10:02-0400 Body weight 54.[address] Harvey Chow Work Phone: [facility] Work Phone: 05-05-2021 10:02-0400 Diastolic blood pressure 66 mm[Hg] Dr. Harvey Chow Work Phone: [facility] Work Phone: 05-05-2021 10:02-0400 Heart rate 92 /min Dr. Harvey Chow Work Phone: [facility] Work Phone: 05-05-2021 10:02-0400 Respiratory rate 15 /min Dr. Harvey Chow Work Phone: [facility] Work Phone: 05-05-2021 10:02-0400 SaO2% (BldA) [Mass fraction] 96 % Dr. Harvey Chow Work Phone: [facility] Work Phone: 05-05-2021 10:02-0400 Systolic blood pressure 118 mm[Hg] Dr. Harvey Chow Work Phone: [facility] Work Phone: 07-24-2020 10:33-0400 Body mass index (BMI) [Ratio] 20.5 kg/m2 Dr. Harvey Chow Work Phone: [facility] Work Phone: Encounters Encounter Date Encounter Type Care Provider Facility Start: 09-03-2024 End: 09-04-2024 Refill Jeevan Boss MD Work Phone: Hematology/Oncology Comment on above: Refill Request Start: 03-12-2024 End: 03-12-2024 [facility] Facility:[facility] Start: 02-21-2024 End: 02-23-2024 Refill Jeevan Boss MD Work Phone: Hematology/Oncology Comment on above: Refill Request Start: 09-05-2023 Refill Jeevan subramanian MD Work Phone: Hematology/Oncology Comment on above: Refill Request Start: 08-15-2023 ambulatory [facility] Facility:[facility] Start: 07-29-2023 End: 07-29-2023 Emergency department patient visit [facility] Facility:[facility] Start: 07-27-2023 End: 07-27-2023 ambulatory [facility] Facility:[facility] Start: 07-27-2023 End: 07-27-2023 Subsequent hospital visit by physician [facility] (I-Stat) Work Phone: Cat Scan Comment on above: Malignant neoplasm o f unspecified part of unspecified bronchus or lung (HCC) [C34.90] Start: 07-04-2023 ambulatory Patsy Harry Facility:[facility] Start: 06-07-2023 End: 06-07-2023 ambulatory CLINICAL LAB CLERK-C Patsy Harry Work Phone: [facility] Work Phone: Start: 06-07-2023 End: 06-07-2023 Patient encounter procedure CLINICAL LAB CLERK-C Patsy Harry Work Phone: [facility] Start: 06-06-2023 End: 06-07-2023 ambulatory CLINICAL LAB CLERK-C Patsy Harry Work Phone: [facility] Work Phone: Start: 06-06-2023 End: 06-06-2023 Patient encounter procedure CLINICAL LAB CLERK-C Patsy Israelgar Work Phone: [facility] [place], [facility] Work Phone: Start: 06-06-2023 End: 06-06-2023 ambulatory Patsy Harry Facility:[facility] Start: 05-19-2023 End: 05-19-2023 Patient encounter procedure CLINICAL LAB CLERK-C Patsy Israelgar Work Phone: [facility] Work Phone: Start: 05-19-2023 End: 05-19-2023 CLINICAL LAB CLERK-C Patsy Harry Work Phone: [facility] Work Phone: Start: 05-19-2023 End: 05-19-2023 ambulatory CLINICAL LAB CLERK-C Patsy Harry Work Phone: [facility] Work Phone: Start: 05-19-2023 End: 05-19-2023 ambulatory Patsy Harry Facility:[facility] Start: 05-03-2023 ambulatory Patsy Harry Facility:[facility] Start: 05-03-2023 Non-patient / Non-visit CLINICAL LAB CLERK-C R paloma Israelgar Work Phone: [facility] Start: 05-03-2023 CLINICAL LAB CLERK-C Patsy reeves Work Phone: [facility] Start: 04-30-2023 End: 04-30-2023 ambulatory Eunice Zachary Facility:[facility] Start: 04-30-2023 End: 04-30-2023 Non-patient / Non-visit CLINICAL LAB CLERK-C Patsy Stafford Work Phone: [facility] Work Phone: Start: 04-30-2023 End: 04-30-2023 CLINICAL LAB CLERK-C Patsy Stafford Work Phone: [facility] Work Phone: Start: 04-29-2023 Non-patient / Non-visit CLINICAL LAB CLERK-C Arely Stafford Work Phone: [facility] Work Phone: Start: 04-29-2023 End: 04-30-2023 ambulatory Eunice Zachary Facility:[facility] Start: 04-29-2023 End: 04-30-2023 Evaluation and management of inpatient CLINICAL LAB CLERK-C Patsy Stafford Work Phone: [facility] Work Phone: Start: 04-29-2023 End: 04-30-[address] Harvey Chow [facility] Work Phone: Start: 04-29-2023 End: 04-30-2023 Dr. Gabriel Claudine [facility] Work Phone: Start: 04-15-2023 Non-patient / Non-visit CLINICAL LAB CLERK-C Arely Stafford Work Phone: [facility] Work Phone: Start: 04-15-2023 Dr. Harvey Chow [facility] Work Phone: Start: 04-15-2023 ambulatory Patsy Harry Facility:[facility] Start: 04-14-2023 ambulatory Eunice Zachary Facility:[facility] Start: 04-14-2023 Non-patient / Non-visit Dr. Harvey Knott puma [facility] Start: 04-14-2023 Dr. Harvey Chow [facility] Start: 04-11-2023 ambulatory Eunice Zachary Facility:[facility] Start: 04-11-2023 Non-patient / Non-visit Dr. Harvey Knott puma [facility] Start: 04-11-2023 Dr. Harvey Chow [facility] Start: 04-11-2023 End: 04-11-[address] Gabriel [facility] Work Phone: Start: 04-11-2023 End: 04-11-[address] [facility] Work Phone: Start: 04-11-2023 End: 04-11-2023 Dr. Gabriel [facility] Work Phone: Start: 04-11-2023 End: 04-11-2023 ambulatory [facility] Facility:[facility] Start: 03-08-2023 End: 03-08-[address] Harvey Chow [facility] Work Phone: Start: 03-08-2023 End: 03-08-2023 Dr. Harvey Chow [facility] Work Phone: Start: 02-11-2023 Non-patient / Non-visit Dr. Harvey Knott puma [facility] Work Phone: Start: 02-11-2023 Dr. Harvey Chow [facility] Work Phone: Start: 02-10-2023 Non-patient / Non-visit Dr. Harvey Knott puma [facility] Work Phone: Start: 02-10-2023 Dr. Harvey Chow [facility] Work Phone: Start: 02-10-2023 Non-patient / Non-visit Dr. Harvey Knott puma [facility] Start: 02-10-2023 Dr. Harvey Chow [facility] Start: 02-09-2023 Non-patient / Non-visit Dr. Harvey Knott puma [facility] Start: 02-09-2023 [facility] Start: 02-08-2023 Non-patient / Non-visit Dr. Harvey Knott puma [facility] Work Phone: Start: 02-08-2023 Dr. Harvey Chow [facility] Work Phone: Start: 02-08-2023 Non-patient / Non-visit Dr. Harvey Knott puma [facility] Start: 02-08-2023 Dr. [facility] Start: 02-07-2023 Non-patient / Non-visit Dr. Harvey Knott puma [facility] Work Phone: Start: 02-07-2023 Dr. Harvey Chow [facility] Work Phone: Start: 02-07-2023 Non-patient / Non-visit Dr. Harvey Knott puma [facility] Start: 02-07-2023 Dr. Harvey Chow [facility] Start: 02-06-2023 Non-patient / Non-visit Dr. Harvey Knott puma [facility] Work Phone: Start: 02-06-2023 Dr. Harvey Chow [facility] Work Phone: Start: 02-06-2023 Non-patient / Non-visit Dr. Harvey Knott puma [facility] Start: 02-06-2023 Dr. Harvey Chow [facility] Start: 02-05-2023 Non-patient / Non-visit Dr. Harvey Knott puma [facility] Work Phone: Start: 02-05-2023 Dr. Harvey Chow [facility] Work Phone: Start: 02-05-2023 Non-patient / Non-visit Dr. Harvey Knott puma [facility] Start: 02-05-2023 Dr. Harvey Chow [facility] Start: 02-04-2023 Non-patient / Non-visit Dr. Harvey Knott [facility] Start: 02-04-2023 Dr. Harvey Chow [facility] Start: 02-04-2023 Non-patient / Non-visit Dr. Harvey Knott puma [facility] Start: 02-04-2023 Dr. Harvey Chow [facility] Start: 02-04-2023 End: 02-11-2023 Evaluation and management of inpatient Dr. Harvey Chow [facility] Work Phone: Start: 02-04-2023 End: 02-11-2023 [facility] Start: 02-04-2023 Non-patient / Non-visit Dr. Harvey Knott puma [facility] Work Phone: Start: 02-04-2023 Dr. Harvey Chwo [facility] Work Phone: Start: 02-03-2023 End: 02-03-2023 Emergency department patient visit Dr. Harvey Claudine [facility] Work Phone: Start: 02-03-2023 End: 02-03-2023 Dr. Harvey Chow [facility] Work Phone: Start: 01-25-2023 End: 01-25-2023 Patient encounter procedure Jeevan Boss MD Work Phone: [facility] Start: 01-25-2023 End: 01-25-2023 ambulatory Jeevan Boss MD Work Phone: Hematology/Oncology Comment on above: Malignant neoplasm o f unspecified part of unspecified bronchus or lung (HCC) (Primary Dx) Start: 01-25-2023 End: 01-25-2023 Subsequent hospital visit by physician Xr [facility] Work Phone: Radiology Comment on above: Malignant neoplasm o f hilus of left lung (HCC) [C34.02] Start: 01-03-2023 End: 01-03-[address] Harvey Chow [facility] Work Phone: Start: 01-03-2023 End: 01-03-2023 Dr. Harvey Chow [facility] Work Phone: Start: 08-30-2022 Refill Jeevan subramanian MD Work Phone: Hematology/Oncology Comment on above: Refill Request Start: 08-19-2022 End: 08-19-2022 ambulatory HARVEY CHOW Facility:[facility] Start: 08-19-2022 End: 08-19-2022 Subsequent hospital visit by physician Xr [facility] [employer] Work Phone: Radiology Start: 07-23-2022 End: 07-23-2022 Subsequent hospital visit by physician Xr [facility] [place] [facility] Work Phone: Radiology Start: 07-19-2022 End: 07-19-2022 ambulatory Paola Fried APRN.LANDSCAPING AND GROUNDSKEEPING LABORER Work Phone: Hematology/Oncology Comment on above: Malignant neoplasm o f unspecified part of unspecified bronchus or lung (HCC) (Primary Dx) Start: 07-19-2022 End: 07-19-2022 Patient encounter procedure Paola Fried CENTRAL STERILE TECH.LANDSCAPING AND GROUNDSKEEPING LABORER Work Phone: [facility] Comment on above: Appointment time Start: 07-19-2022 Telephone encounter Paola lane CENTRAL STERILE TECH.LANDSCAPING AND GROUNDSKEEPING LABORER Work Phone: Hematology/Oncology Comment on above: Appointment Start: 07-19-2022 End: 07-19-2022 Emergency department patient visit Dr. Harvey Chow Work Phone: [facility]Emergency Department Start: 07-13-2022 End: 07-13-2022 Subsequent hospital visit by physician [facility] (I-Stat) Work Phone: Cat Scan Comment on above: Malignant neoplasm o f unspecified part of unspecified bronchus or lung (HCC) [C34.90] Start: 06-30-2022 End: 06-30-[address] Harvey Chow Work Phone: [facility] Start: 04-28-2022 Orders Only Simi Christiansen Work Phone: [facility] Comment on above: Asymptomatic bilater al carotid artery stenosis (Primary Dx) Start: 04-27-2022 End: 04-27-2022 Subsequent hospital visit by physician Simi Castillo PA-C Work Phone: [facility] V[facility] Lab Comment on above: Asymptomatic bilater al carotid artery stenosis Start: 04-20-2022 End: 04-20-2022 Office outpatient visit 15 minutes Simi Castillo PA-C Work Phone: [facility] Comment on above: Atherosclerosis of n ative arteries of extremities with intermittent claudication, bilateral legs (HCC) (Primary Dx); Asymptomatic bilateral carotid artery stenosis Start: 03-15-2022 Refill Simi Christiansen Work Phone: [facility] 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, unspecified laterality (HCC) Start: 01-13-2022 End: 01-13-2022 Patient encounter procedure Eliud Maya MD Work Phone: [facility] Start: 01-13-2022 End: 01-13-2022 Subsequent hospital visit by physician Xr [facility] Work Phone: Radiology Comment on above: Malignant neoplasm m etastatic to adrenal gland, unspecified laterality (HCC) [C79.70] Start: 09-07-2021 Refill Eliud Maya MD Work Phone: Hematology/Oncology Comment on above: Refill Request Start: 07-14-2021 End: 07-14-2021 ambulatory Eliud Maya MD Work Phone: Hematology/Oncology Comment on above: Adrenal insufficienc y (HCC) (Primary Dx); 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 Harvey Chow Work Phone: [facility]Emergency Department Start: 05-22-2021 End: 05-22-[address] Harvey Chow Work Phone: [facility] Start: 05-05-2021 End: 05-05-[address] Harvey Chow Work Phone: [facility] Start: 03-11-2021 End: 03-11-[address] Harvey Chow Work Phone: [facility]-Pulmonary Services/Neurology Start: 03-11-2021 Non-patient / Non-visit Dr. Alberto Chow Work Phone: [facility] Start: 02-23-2021 Non-patient / Non-visit Dr. Alberto Chow Work Phone: [facility] Start: 02-23-2021 End: 02-23-[address] Harvey [facility] Start: 02-19-2021 Non-patient / Non-visit Dr. Alberto Chow Work Phone: [facility] Start: 02-19-2021 End: 02-19-[address] Harvey Chow [facility] Start: 09-15-2020 End: 09-15-2020 Subsequent hospital visit by physician Jessica Tellez MD Work Phone: [facility] Scan Comment on above: Atherosclerosis of n ative arteries of extremities with intermittent claudication, bilateral legs (HCC) Start: 08-22-2020 End: 08-22-2020 Subsequent hospital visit by physician Jessica Tellez MD Work Phone: [facility] [address] [facility] Comment on above: Atherosclerosis of n ative arteries of extremities with intermittent claudication, bilateral legs (HCC) Procedures Date Procedure Procedure Detail Performing Clinician Start: 06-07-2023 Urine culture CLINICAL LAB CLERK-C Patsy Stafford Work Phone: Start: 06-06-2023 CT angiography of chest with contrast CLINICAL LAB CLERK-C Patsy Stafford Work Phone: Start: 05-19-2023 Plain chest X-ray CLINICAL LAB CLERK-C Patsy Stafford Work Phone: Start: 04-11-2023 Cardiovascular stress test using pharmacologic stress agent Dr. Harvey Chow Start: 02-06-2023 Measurement of occult blood in stool specimen using immunoassay Dr. Harvey Chow Start: 02-04-2023 Bacteria identified in Blood by Culture Dr. Harvey Chow Start: 02-04-[address] Harvey Chow Start: 02-04-2023 Dr. Harvey Chow Start: 02-04-2023 CT angiography of chest with contrast Dr. Harvey Chow Start: 02-04-2023 Plain chest X-ray Dr. Harvey Chow Start: 02-03-2023 Respiratory syncytial virus antigen assay Dr. Harvey Chow Start: 02-03-2023 SARS-CoV-2 & FLU Antigen (Rapid) Dr. Harvey Chow Start: 02-03-[address] Harvey Chow Start: 02-03-2023 Dr. Harvey Chow Start: 02-03-2023 Plain chest X-ray Dr. Harvey Chow Start: 01-25-2023 Radiologic exam chest 2 views Jeevan Boss MD Work Phone: Start: 08-19-2022 Radex wrist complete minimum 3 views [facility] Provider Start: 07-23-2022 End: 07-23-2022 Radex forearm 2 views [facility] Provider Start: 07-19-2022 Plain x-ray of wrist Dr. Harvey Chow Work Phone: Start: 07-13-2022 Ct thorax w/o contrast material Eliud Maya MD Work Phone: Start: 04-27-2022 Duplex scan extracranial art compl bi study Simi Castillo PA-C Work Phone: Start: 01-13-2022 Radiologic exam chest 2 views Eliud Maya MD Work Phone: Start: 07-09-2021 Ct thorax w/contrast material Eliud Maya MD Work Phone: Start: 02-23-2021 Nuclear Stress Test - Chemical Dr. Harvey Chow Work Phone: Start: 01-15-2021 Adult depression screening assessment Ct (I-Stat) Work Phone: Start: 09-15-2020 Cta abdl aorta&bi iliofem w/contrast&postp Jessica Tellez MD Work Phone: Start: 08-22-2020 Creatinine blood Jessica Tellez MD Work Phone: Start: 12-25-[address] (I-Stat) Work Phone: Start: 09-14-2013 History of coronary artery bypass grafting Aortocoronary bypass status Dr. Harvey Chow Work Phone: H/O: tubal ligation Hx of tubal ligation Dr. Harvey Chow Work Phone: History of appendectomy Hx of appendectom y Dr. Harvey Chow Work Phone: Plan of Treatment Date Care Activity Detail Author Start: 2029 RSV Vaccine (1 - 1-d ose 75+ series) RSV Vaccine (1 - 1-dose 75+ series) [facility] Start: 07-13-2025 DIABETES SCREEN DIABETES SCREEN [facility] Start: 07-13-2025 Diabetes Screening Diabetes Screenin g [facility] Start: 07-05-2025 Screening for malign ant neoplasm of colon [facility] Start: 01-13-2025 DIABETES SCREEN DIABETES SCREEN [facility] Start: 10-15-2024 Influenza vaccination Influenza Vacc ine (#1) [facility] Start: 07-09-2024 DIABETES SCREEN DIABETES SCREEN [facility] Start: 02-15-2024 Advance Directive Discussion Advance Directive Discussion [facility] Start: 02-15-2024 Medicare Advantage A nnual Wellness Visit Medicare Advantage Annual Wellness Visit [facility] Start: 10-16-2023 Covid-19 Vaccine ( season) Covid-19 Vaccine ( season) [facility] Start: 10-16-2023 Influenza vaccination Influenza Vacc ine (#1) [facility] Start: 08-02-2023 End: 08-02-2023 ambulatory 08/02/2023 10:20 AM EDT Visit (SP) Office Hematology/Oncology [address] [place] [address] [place] [address] [place] [address] 6 MO OV/CT 07/26* Hematology/Oncology Comment on above: 6 MO OV/CT 07/26* Start: 07-27-2023 End: 02-24-2024 Ct thorax w/o contrast material CT CHEST [facility] Radiology Routine Malignant neoplasm of unspecified part of unspecified bronchus or lung (HCC) Expected: 07/27/2023 (Approximate), Expires: 02/24/2024 [facility] Work Phone: Comment on above: Expected: 07/27/2023 (Approximate), Expires: 02/24/2024 Start: 04-30-2023 Patient discharge [facility] Start: 04-29-2023 Patient referral [facility] Work Phone: Start: 04-29-2023 Following clinical p athway protocol [facility] Start: 04-29-2023 Ambulation without limitation [facility] Start: 04-29-2023 Pulse taking [facility] Start: 04-29-[address] [facility] Start: 04-29-2023 Cardiac monitoring [facility] Start: 04-29-2023 Cardiac rehabilitati on - phase 1 [facility] Start: 04-29-2023 Cardiac rehabilitati on - phase 2 [facility] Start: 04-29-2023 Notification of physician [facility] Start: 04-29-2023 Oxygen therapy [facility] Start: 04-29-2023 Patient discharge [facility] Start: 04-29-2023 Provision of activit y privileges [facility] Start: 04-29-2023 Systemic arterial pr essure monitoring [facility] Start: 04-29-2023 Taking patient vital signs [facility] Start: 04-29-2023 Vascular disease ris k assessment [facility] Start: 04-29-2023 Vital signs measurements [facility] Start: 04-29-2023 End: 04-29-2023 [facility] Start: 04-29-2023 Patient referral to dietitian [facility] Start: 02-14-2023 Advance Directive Discussion Advance Directive Discussion [facility] Start: 02-14-2023 Behavioral Health Screening Behavioral Health Screening [facility] Start: 02-11-2023 Patient discharge [facility] Start: 02-09-2023 Care planning and pr oblem solving actions [facility] Start: 02-05-2023 Thyroid stimulating hormone measurement [facility] Start: 02-05-2023 [facility] Start: 02-04-2023 Bacteria identified in Blood by Culture Blood Culture [facility] Start: 02-04-2023 Bacteria identified in Urine by Culture Urine Culture [facility] Start: 02-04-2023 Following clinical p athway protocol [facility] Start: 02-04-2023 Assessment of risk o f venous thromboembolism [facility] Start: 02-04-2023 Continuous pulse oximetry [facility] Start: 02-04-2023 Elevation of head of bed [facility] Start: 02-04-2023 Inhalation therapy procedure [facility] Start: 02-04-2023 Insertion of cathete r into peripheral vein [facility] Start: 02-04-[address] [facility] Start: 02-04-2023 Measuring intake and output [facility] Start: 02-04-2023 Oxygen therapy [facility] Start: 02-04-2023 Patient referral to dietitian [facility] Start: 02-04-2023 Providing care accor ding to standard [facility] Start: 02-04-2023 Referral to allergist/immunologist [facility] Start: 02-04-2023 Referral to occupati onal therapist [facility] Start: 02-04-[address] [facility] Start: 02-04-2023 Tobacco use cessatio n education [facility] Start: 02-04-2023 Vital signs measurements [facility] Start: 02-04-2023 [facility] Start: 02-04-[address] [facility] Start: 02-04-2023 Respiratory secretio n precautions [facility] Start: 02-04-2023 Dual pressure sponta neous ventilation support [facility] Start: 02-04-2023 Verification routine [facility] Start: 02-04-2023 End: 02-04-2023 Admission procedure [facility] Start: 02-04-2023 Gas panel - Arterial blood [facility] Start: 02-04-2023 Diagnostic radiograp hy of abdomen Abdomen Single View [facility] Start: 02-04-2023 Plain chest X-ray Chest 1 View (Port able) [facility] Start: 02-04-2023 [facility] Start: 02-04-2023 End: 02-04-2023 Blood culture [facility] Start: 02-04-2023 Continuous pulse oximetry [facility] Start: 02-04-2023 Dual pressure sponta neous ventilation support [facility] Start: 02-03-2023 Emergency department visit moderate severity [facility] Start: 02-03-2023 [facility] Start: 10-15-2022 Covid-19 Vaccine ( season) Covid-19 Vaccine ( season) [facility] Start: 10-15-2022 Influenza vaccination [facility] Start: 07-13-2022 End: 02-12-2023 Ct [facility]/o contrast material [facility] Routine Malignant neoplasm of unspecified part of unspecified bronchus or lung (HCC) 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, unspecified laterality (HCC) Expected: 07/13/2022, Expires: 02/12/2023 [facility] Work Phone: Comment on above: Expected: 07/13/2022 , Expires: 02/12/2023 Start: 03-23-2022 End: 03-23-2022 Patient encounter procedure 03/23/2022 Office Visit Vascular Surgery Simi Castillo PA-C [address] [place] [address] Arias Waller Start: 02-14-2022 ADVANCE DIRECTIVE DISCUSSION ADVANCE DIRECTIVE DISCUSSION [facility] Start: 02-14-2022 DEPRESSION ASSESSMENT DEPRESSION ASS ESSMENT [facility] Start: 01-15-2022 Adult depression scr eening assessment DEPRESSION SCREENING [facility] Start: 10-15-2021 Influenza vaccination C [facility] Start: 08-22-2021 Creatinine measurement Creatinine mo nitoring [facility] Work Phone: Start: 07-11-2021 Screening for malign ant neoplasm of lung Low dose CT lung screening [facility] Work Phone: Start: 02-14-2021 ADVANCE DIRECTIVE DISCUSSION ADVANCE DIRECTIVE DISCUSSION [facility] Start: 02-14-2021 DEPRESSION ASSESSMENT DEPRESSION ASS [facility] Start: 10-15-2020 Influenza vaccination Flu vaccine (# 1) [facility] Work Phone: Start: 08-01-2020 Annual Wellness Visi t (AWV) Annual Wellness Visit (AWV) [facility] Work Phone: Start: 12-26-2019 Mammography [facility] Start: 12-26-2019 Screening for malign ant neoplasm of breast Mammogram Screening [facility] Start: 10-31-2019 BONE DENSITY BONE DENSITY [facility] Start: 10-31-2019 Bone Density Screening Bone Density Screening [facility] Start: 10-31-2019 Pneumococcal 65+ yea rs Vaccine (1 of 1 - PPSV23) Pneumococcal 65+ years Vaccine (1 of 1 - PPSV23) [facility] Work Phone: Start: 10-31-2019 Screening for osteoporosis Bone Dens ity Screening [facility] Start: 2014 RSV Vaccine (1 - 1-d ose 60+ series) RSV Vaccine (1 - 1-dose 60+ series) [facility] Start: 2009 Screening for osteoporosis DEX A (modify frequency per FRAX score) [facility] Work Phone: Start: 2004 Screening for malign ant neoplasm of breast Breast cancer screen [facility] Work Phone: Start: 2004 Shingles Vaccine (1 of 2) Lu gles Vaccine (1 of 2) [facility] Work Phone: Start: 2004 SHINGRIX VACCINE (1 of 2) LU GRIX VACCINE (1 of 2) [facility] Start: 2004 Zoster Vaccines (1 of 2) Zoste r Vaccines (1 of 2) [facility] Start: 10-31-1999 COLOGUARD (FIT-DNA) COLOGUARD (FIT-D NA) [facility] Start: 10-31-1999 Colonoscopy COLONOSCOPY [facility] Start: 10-31-1999 COLORECTAL CANCER SCREENING COLORECTAL CANCER SCREENING [facility] Start: 10-31-[address] COLONOGRAPHY [facility] Start: 10-31-1999 FECAL OCCULT BLOOD FECAL OCCULT BLOO D [facility] Start: 10-31-1999 Lipid 1996 panel - S johnny or Plasma Lipid Screening [facility] Start: 10-31-1999 Lipid panel Lipid Screening [facility] Start: 10-31-1999 LIPID SCREEN LIPID SCREEN [facility] Start: 10-31-1999 Screening for malign ant neoplasm of colon [facility] Start: 10-31-1999 SIGMOIDOSCOPY SIGMOIDOSCOPY [facility] Start: 1994 Lipid panel Lipid screen [facility] Work Phone: Start: 1994 Screening for malign ant neoplasm of breast Mammogram [facility] Start: 10-31-1975 Screening for malign ant neoplasm of cervix Cervical cancer screen [facility] Work Phone: Start: 1973 DTaP/Tdap/Td vaccine (1 - Tdap) DTaP/Tdap/Td vaccine (1 - Tdap) [facility] Work Phone: Start: 1973 DTaP/Tdap/Td Vaccine s (1 - Tdap) DTaP/Tdap/Td Vaccines (1 - Tdap) [facility] Start: 1973 Pneumococcal Vaccine : 50+ (1 of 2 - PCV) Pneumococcal Vaccine: 50+ (1 of 2 - PCV) [facility] Start: 1973 Urine microalbumin profile [facility] Start: 1972 Anxiety Screening Anxiety Screening [facility] Start: 1972 Depression Screening Depression Scre [facility] Start: 1972 Diabetes mellitus screening Diabetes Screening [facility] Start: 1972 HEPATITIS C SCREENING HEPATITIS C [facility] Start: 1972 Hepatitis C screening Hepatitis C [facility] Start: 1969 HIV screening HIV screen [facility] Work Phone: Start: 1966 COVID-19 Vaccine (1) COVID-19 Vaccin e (1) [facility] Work Phone: Start: 1960 Pneumococcal Vaccine : 65+ (1 - PCV) Pneumococcal Vaccine: 65+ (1 - PCV) [facility] Start: 1960 Pneumococcal Vaccine : 65+ (1 of 2 - PCV) Pneumococcal Vaccine: 65+ (1 of 2 - PCV) [facility] Start: 1960 Pneumococcal Vaccine : 65+ Years (1 - PCV) Pneumococcal Vaccine: 65+ Years (1 - PCV) [facility] Start: 1960 PNEUMOCOCCAL: 65+ (1 - PCV) PNEUMOCOCCAL: 65+ (1 - PCV) [facility] Start: 10-31-1959 COVID-19 VACCINE (#1) COVID-19 VACCI NE (#1) [facility] Start: 04-30-1955 COVID-19 VACCINE (#1) COVID-19 VACCI NE (#1) [facility] Start: 1954 Creatinine measurement Creatinine mo nitoring [facility] Work Phone: Start: 1954 Hepatitis B Vaccines (1 of 3 - 3-dose series) Hepatitis B Vaccines (1 of 3 - 3-dose series) [facility] Start: 1954 Hepatitis C screening Hepatitis C sc reen [facility] Work Phone: Start: 1954 Lipid panel [facility] Start: 1954 Potassium monitoring Potassium monit oring [facility] Work Phone: Start: 1954 Screening for malign ant neoplasm of colon [facility] Start: 1954 Screening for osteoporosis Bone Dens ity Scan [facility] Alanine aminotransfe rase [Enzymatic activity/volume] in Serum or Plasma [facility] Albumin [Mass/volume ] in Serum or Plasma [facility] Alkaline phosphatase [Enzymatic activity/volume] in Serum or Plasma [facility] Anion gap measurement [facility] Aspartate aminotrans ferase [Enzymatic activity/volume] in Serum or Plasma [facility] Bilirubin, total measurement [facility] BUN/Creatinine ratio [facility] Calcium [Mass/volume ] in Serum or Plasma [facility] Carbon dioxide, tota l [Moles/volume] in Serum or Plasma [facility] Chloride [Moles/volu me] in Serum or Plasma [facility] Creatinine [Moles/vo lume] in Serum or Plasma [facility] CT Chest WO contrast CT CHEST [facility] Routine Malignant neoplasm of unspecified part of unspecified bronchus or lung (HCC) 07/27/2023 10:40 AM EDT [facility] Work Phone: Glucose [Mass/volume ] in Serum or Plasma [facility] Hematocrit [Volume Fraction] of Blood [facility] Hemoglobin [Mass/vol ume] in Blood [facility] Leukocytes [#/volume ] in Blood [facility] Magnesium [Mass/volu me] in Serum or Plasma [facility] Mean corpuscular hemoglobin concentration determination [facility] Mean corpuscular hemoglobin determination [facility] Measurement of renal function [facility] Neutrophil count [facility] Neutrophil percent differential count [facility] Patient Education [facility] Work Phone: Patient referral [facility] Work Phone: Platelets [#/volume] in Blood [facility] Potassium [Moles/vol ume] in Serum or Plasma [facility] Red blood cell count [facility] Red cell distributio n width determination [facility] Sodium [Moles/volume ] in Serum or Plasma [facility] Total protein measurement [facility] Urea nitrogen [Mass/volume] in Serum or Plasma [facility] Immunizations Immunization Date Immunization Notes Care Provider Fa cili 11-01-2022 influenza virus vaccine, unspecified formulation Jeevan Boss MD Work Phone: [facility] 11-12-2021 influenza virus vaccine, unspecified formulation [employer] Work Phone: [facility] 11-06-[address] Harvey Chow Work Phone: [facility] 11-25-2017 influenza, injectabl e, quadrivalent, preservative free Ct (I-Stat) Work Phone: [facility] 11-30-2016 influenza, injectabl e, quadrivalent, preservative free Ct (I-Stat) Work Phone: [facility] 10-27-[address] Harvey Chow Work Phone: [facility] 10-27-2015 influenza, high dose seasonal, preservative-free Ct (I-Stat) Work Phone: [facility] 11-25-2014 influenza, injectabl e, quadrivalent, preservative free Ct (I-Stat) Work Phone: [facility] Work Phone: Payers Date Payer Category Payer Self-pay [id number] 2023 Medicare (Managed Care) [employer] [id number] 2022 Medicare [employer] [facility] [id number] 2022-Present [address] [place] [id number] Medicare HMO [id number] 2021 Unknown ANTH BLUE [facility] S AND BLUE SHIELD [facility] [id number] 2021-Present [phone] [address] [place] [address] HMO [id number] 2021 Unknown [id number]. [id number] 2021 Unknown [id number] 2020 Medicaid [id number] 2017 Medicaid [place] [id number] 2017-Present [address] [place] [address] Medicaid [id number] 2014 Medicare [id number] Unknown [id number] 2.16.840.1.042738.3.579.2. 462 Unknown [id number] 2.16.840.1.780070.3.579.2. 462 Unknown [id number] 2.16.840.1.491010.3.579.2. 462 Unknown [id number] 2.16.840.1.771804.3.579.2. 462 Unknown [id number] 2.16.840.1.632637.3.579.2. 462 Unknown [id number] 2.16.840.1.640430.3.579.2. 462 Unknown [id number] 2.16.840.1.195775.3.579.2. 462 Unknown [id number] 2.16.840.1.870626.3.579.2. 462 Unknown [id number] 2.16.840.1.221884.3.579.2. 462 Unknown [id number] 2.16.840.1.833973.3.579.2. 462 Unknown [id number] 2.16.840.1.533126.3.579.2. 462 Unknown [id number] 2.16.840.1.451345.3.579.2. 462 Unknown [id number] 2.16.840.1.037096.3.579.2. 462 Unknown [id number] 2.16.840.1.172518.3.579.2. 462 Unknown [id number] 2.16.840.1.624715.3.579.2. 462 Unknown [id number] 2.16.840.1.761603.3.579.2. 462 Unknown [id number] 2.16.840.1.477194.3.579.2. 462 Unknown [id number] 2.16.840.1.121415.3.579.2. 462 Social History Date Type Detail Facility Start: 08-22-2020 End: 01-25-2023 Tobacco smoking status PAIS Current every day smoker [facility] Start: 02-15-1972 History of tobacco use Cigarette Smo ker [facility] Start: 08-22-2020 End: 07-19-2022 Cigarettes smoked current (pack per day) - Reported [facility] Start: 08-22-2020 End: 01-25-2023 Tobacco use and exposure Never used [facility] Start: 08-22-2020 End: 04-20-2022 Alcohol intake Lifetime non-drinker (finding) [facility] Work Phone: Start: 08-05-2020 History SDOH Alcohol Frequency 1 [facility] Work Phone: Start: 1955 Sex Assigned At Not on file [facility] [employer] Work Phone: Start: 01-03-2022 End: 04-27-2022 Exposure to SARS-CoV-2 (event) Not sure [facility] Start: 1955 Sex Assigned At Female [facility] [employer] Work Phone: Start: 06-17-2021 End: 05-19-2023 Tobacco smoking status NHIS Unknown if ever smoked [facility] Start: 07-24-2020 Occasional [facility] Start: 07-24-2020 None [facility] Start: 07-24-2020 Alone [facility] Start: 07-24-2020 Cigarettes [facility] Start: 01-15-2021 End: 01-25-2023 Alcohol intake Current non-drinker of alcohol (finding) [facility] Start: 11-05-2019 End: 01-25-2023 Tobacco Comment Pt has cut back to 1/4 pack daily. [facility] Start: 01-15-2021 End: 07-19-2022 Tobacco use panel [facility] Adult Depression Screening Assessment 0 [facility] Start: 07-13-2020 Gender identity Identifies as female gender (finding) [facility] Start: 07-13-2020 Sexual orientation Heterosexual (moriah howard) [facility] Medical Equipment Procedure Code Equipment Code Equipment Origin al Text Equipment Identifier Dates [id number] FDA Start: 04-29-2023 Goals Date Patient Goal Desired Activity /State Functional Status Date Assessment Result Facility 04-30-2023 Functional status Ambulates [facility] Work Phone: 02-11-2023 Functional status Ambulates;Chair [facility] Work Phone: 09-18-2014 Are you deaf, or do you have serious difficulty hearing No 09/18/2014 12:47 PM Eliana Cedillo MA No [facility] 09-18-2014 Are you blind, or do you have serious difficulty seeing, even when wearing glasses No 09/18/2014 12:47 PM Eliana Cedillo MA No [facility] 09-18-2014 Do you have serious difficulty walking or climbing stairs No 09/18/2014 12:47 PM Eliana Cedillo MA No [facility] 09-18-2014 Do you have difficul ty dressing or bathing No 09/18/2014 12:47 PM Eliana Cedillo MA No [facility] 09-18-2014 Because of a physica l, mental, or emotional condition, do you have difficulty doing errands alone such as visiting a physician's office or shopping No 09/18/2014 12:47 PM EDT Eliana Bacon MA No [facility] Mental Status Date Assessment Result Facility 04-30-2023 Cognitive function Voice/Name [facility] Work Phone: 02-11-2023 Cognitive function Voice/Name [facility] Work Phone: 09-18-2014 Because of a physica l, mental, or emotional condition, do you have serious difficulty concentrating, remembering, or making decisions No 09/18/2014 12:47 PM EDT Eliana Bacon MA No [facility] Clinical Notes 08-28-2014 to 09-03-2024 Telephone Encounter - Margie Merchant LPN - 09/03/2024 10:59 AM EDTTelephone Encounter - Margie Merchant LPN - 09/03/2024 10:59 AM EDTReLorena Farnsworth RT(Arely) - 07/27/2023 10:20 AM EDT Note Date & Type Note Facility 09-03-2024 Telephone encount er Note Last OV 01/25/2023. CT chest 07/27/2023. Does patient need a follow up? Margie Merchant LPN [facility] 09-03-2024 Miscellaneous Notes Formattin g of this note might be different from the original. Last OV 01/25/2023. CT chest 07/27/2023. Does patient need a follow up? Margie Merchant LPN Patient has been identified by name and date of : Yes Last office visit in this department: Visit date not found RX INSTRUCTIONS: Patient aware RX will be sent to pharmacy. No need to notify patient. Patient phones requesting refills as follows: Requested Prescriptions Pending Prescriptions Disp Refills hydrocortisone (CORTEF) 10 mg tablet 90 tablet 5 Sig: TAKE 2 TABLETS BY MOUTH once dailly at 7 (SEVEN) IN THE MORNING and 1 tablet at 7 (SEVEN) IN THE EVENING Please review and advise. Lilly Walsh documented in this encounter [facility] 09-03-2024 Telephone encount er Note Patient has been identified by name and date of : Yes Last office visit in this department: Visit date not found RX INSTRUCTIONS: Patient aware RX will be sent to pharmacy. No need to notify patient. Patient phones requesting refills as follows: Requested Prescriptions Pending Prescriptions Disp Refills hydrocortisone (CORTEF) 10 mg tablet 90 tablet 5 Sig: TAKE 2 TABLETS BY MOUTH once dailly at 7 (SEVEN) IN THE MORNING and 1 tablet at 7 (SEVEN) IN THE EVENING Please review and advise. Lilly Walsh [facility] 02-21-2024 Telephone encount er Note Pt. Not seen since 01/25/2023, Had CT scan 07/27/2023 and labs 07/13/2022 Follow up plans? Question refill .Joslyn Becker LPN [facility] 02-21-2024 Miscellaneous Notes Formattin g of this note might be different from the original. Pt. Not seen since 01/25/2023, Had CT scan 07/27/2023 and labs 07/13/2022 Follow up plans? Question refill .Joslyn Becker LPN documented in this encounter [facility] 09-05-2023 Telephone encount er Note Prescription Refill Information The patient has been identified by name and date of : Yes Caregiver verified no other encounters exist for this prescription request: Yes Caregiver confirmed with patient/requestor that no other refills are due, in the near future, with this provider at this time: Yes The last office visit in the department: 08/02/2023 Does the patient have a future office visit with this provider/department: No Requested Prescriptions Pending Prescriptions Disp Refills hydrocortisone (CORTEF) 10 mg tablet 90 tablet 5 Simg orally 7 AM & 10mg orally 7 PM. Lilly Arreolacarmen Pss September 05, 2023 9:20 AM [facility] 09-05-2023 Miscellaneous Notes Formattin g of this note is different from the original. Prescription Refill Information The patient has been identified by name and date of : Yes Caregiver verified no other encounters exist for this prescription request: Yes Caregiver confirmed with patient/requestor that no other refills are due, in the near future, with this provider at this time: Yes The last office visit in the department: 08/02/2023 Does the patient have a future office visit with this provider/department: No Requested Prescriptions Pending Prescriptions Disp Refills hydrocortisone (CORTEF) 10 mg tablet 90 tablet 5 Simg orally 7 AM & 10mg orally 7 PM. Lilly Arreolacarmen Pss September 05, 2023 9:20 AM documented in this encounter [facility] 07-27-2023 History of Presen t illness Narrative Radiology Service Progress Note PATIENT NAME: Jonelle Coronado DATE OF SERVICE: July 27, 2023 TIME: 12:59 PM PATIENT IDENTITY VERIFICATION COMPLETED USING TWO (2) IDENTIFIERS: Name and Date of confirmed by patient verbally. FALL SCREENING: Has the patient had 2 falls in the last year or 1 fall with injury or currently using an Ambulatory Assistive Device (Walker, Cane, Wheelchair, Crutches, etc.)? No PATIENT GENDER DATA: Female. status: : No status: NO. PATIENT RELEVANT IMPLANT DATA REVIEWED: Yes PATIENT PRESENTS WITH AN IMPLANTABLE OR ATTACHED DATA CONTROL CLERK: No RADIOLOGY DEPARTMENT: CT; Exam(s) Completed: Chest PERIPHERAL IV DATA: Not applicable SIGNED BY: RT Brittanie(R) July 27, 2023 12:59 PM documented in this encounter [facility] 07-27-2023 Note HNO ID: [id number] Author: LORENA CAAL RT(Arely) Service: ? Author Type: Manager Publishing Type: Progress Notes Filed: 07/27/2023 12:59 Note Text: Radiology Service Progress Note PATIENT NAME: Jonelle Coronado DATE OF SERVICE: July 27, 2023 TIME: 12:59 PM PATIENT IDENTITY VERIFICATION COMPLETED USING TWO (2) IDENTIFIERS: Name and Date of confirmed by patient verbally. FALL SCREENING: Has the patient had 2 falls in the last year or 1 fall with injury or currently using an Ambulatory Assistive Device (Walker, Cane, Wheelchair, Crutches, etc.)? No PATIENT GENDER DATA: Female. status: : No status: NO. PATIENT RELEVANT IMPLANT DATA REVIEWED: Yes PATIENT PRESENTS WITH AN IMPLANTABLE OR ATTACHED DATA CONTROL CLERK: No RADIOLOGY DEPARTMENT: CT; Exam(s) Completed: Chest PERIPHERAL IV DATA: Not applicable SIGNED BY: RT Brittanie(Arely) July 27, 2023 12:59 PM [facility] 04-29-2023 Consult note Note Date/Time April 29, 2023 11:06am [facility] Medical Records Department [address] [place] [address] Counseling Note - Pharmacy 04/29/23 1105 MR#: [id number] Acct: [id number] Name: JONELLE CORONADO Rep #:[id number] : 1955 67 From: Carlos Davis PCP: HERSON Matthews Status:ADM [place] Y Location: [place] [address] Pharmacy [facility] has performed discharge medication reconciliation and counseling for this patient. The patient's discharge medication list was reviewed for discrepancies and discrepancies were resolved. The patient was counseled on the following discharge medications and changes in medications for homegoing were reviewed. The Reason for Use, instructions for use, and potential side effects were reviewed for all new medications. The patient's questions regarding all of their medications were answered. 1. Aspirin 81 mg PO daily The patient was able to verbally demonstrate an understanding of their dischargemedications. Medications at Discharge Home Medications hydrocortisone 10 mg tablet 20 mg PO .COMPLEX adrenal insufficiency 02/04/21 evolocumab 140 mg/mL subcutaneous pen injector (Repatha SureClick) 140 mg [id number] #2 mL 05/18/22 escitalopram oxalate 20 mg tablet (Lexapro) 20 mg PO DAILY 06/30/22 nitroglycerin 0.4 mg sublingual tablet 0.4 mg sublingual Q5-15M PRN chest pain #25 tabs 06/30/22 ticagrelor 90 mg tablet 90 mg PO BID blood thinner #180 tabs 08/16/22 empagliflozin 10 mg tablet (Jardiance) 10 mg PO DAILY #30 tabs 02/11/23 pantoprazole 40 mg tablet,delayed release (Protonix) 40 mg PO DAILY #30 tabs 02/11/23 sacubitril 24 mg-valsartan 26 mg tablet (Entresto) 1 tab PO BID #60 tabs 02/11/23 lorazepam 1 mg tablet (Ativan) 1.5 mg PO QHS 03/08/23 metoprolol tartrate 25 mg tablet 25 mg PO BID #180 tabs 04/19/23 aspirin 81 mg tablet,delayed release 81 mg PO DAILY@0800 #100 tabs 04/29/23 04/29/23 1106 <Electronically signed by Carlos mccullough> Date _ Carlos Fernández Signature (if applicable): Date CC: ~ Signed [facility] Work Phone: 1(828) 876-782603-15-2024 Discharge summary Author Eunice Sharma [facility] April 29, 2023 10:36am Note Date/Time April 29, 2023 10: 31am [facility] Medical Records Department [address] [place] [address] Instructions for Home/Discharge Instructions 04/29/23 1031 MR#: [id number] Acct: [id number] Name: JONELLE CORONADO Rep #:[id number] : 1955 67 From: Eunice Sharma MD PCP: HERSON Matthews Status:REG [facility] Discharge Instructions Diet Discharge Diet: Low fat / Low cholesterol Activity Discharge Activity: Return to Normal Activity May resume sexual activity in: No Restrictions Dressing / Incision Call your doctor if your incision/area has: Continuous Slow Oozing, Sudden Increased Bleeding, Increased Pain/ Swelling, Increased Redness, Foul Smelling Discharge and Swelling at the incision site Call your doctor if you observe: Fever of 101 or Higher, Coldness, Increased Pain and Numbness or Tingling Follow Up Care Please Follow Up With: Karime Roblero NP, JERRELL-C When: 2 weeks Test Results: Test results from this visit will be discussed in further detail at your follow- up appointment, if applicable. Discharge Plan Admission Attending Provider: Eunice Sharma Primary Care Provider: Patsy Stafford Discharge Orders/Prescriptions Prescriptions: New aspirin 81 mg Tablet,Delayed Release (Dr/Ec) 81 mg PO DAILY@0800 Qty: 100 3RF Continued lorazepam [Ativan] 1 mg tablet 1.5 mg PO QHS escitalopram oxalate [Lexapro] 20 mg tablet 20 mg PO DAILY nitroglycerin 0.4 mg tablet, sublingual 0.4 mg sublingual Q5-15M PRN (Reason: chest pain) Qty: 25 6RF Rx Instructions: do not exceed 3 doses per episode hydrocortisone 10 mg tablet 20 mg PO .COMPLEX Hold Instructions: Hold while taking prednisone. Patient Comments: TAKE 2 TABLETS BY MOUTH at 7AM and ONE TABLET at 7PM Rx Instructions: 20 mg PO TAKE 2 TABLETS BY MOUTH at 7AM and ONE TABLET at 7PM; Entresto 24-26 mg Tablet 1 tab PO BID Qty: 60 2RF Rx Instructions: Hold for SBP less than 90 mmHg Jardiance 10 mg Tablet 10 mg PO DAILY Qty: 30 2RF Rx Instructions: Hold if patient gets vaginitis/moniliasis pantoprazole [Protonix] 40 mg tablet,delayed release (DR/EC) 40 mg PO DAILY Qty: 30 2RF Repatha SureClick 140 mg/mL pen injector 140 mg SC Q2W Qty: 2 11RF ticagrelor 90 mg tablet 90 mg PO BID Qty: 180 3RF metoprolol tartrate 25 mg tablet 25 mg PO BID Qty: 180 3RF Discontinued cilostazol 50 mg tablet 50 mg PO BID Referrals / Follow Up: Patsy Stafford NP-C [Primary Care Provider] - Disposition Disposition (needs filled in before D/C Order can be placed): Home, Self Care 04/29/23 1036<Electronically signed by Eunice Sharma MD>Eunice Sharma MD CC: HERSON Stafford ~ Signed [facility] Work Phone: 1(361) 680-568703-01-2024 [facility] Medical Records Department [address] [place] [id number] History Physical Exam 04/15/23 1515 MR#: [id number] Acct: [id number] Name: JONELLE CORONADO Rep #: [id number] : 1955 67 From: Eunice Sharma MD PCP: HERSON Matthews Status:DIS [place] Location: [place] [address] History and Physical Date of Admission: 04/29/23 This is a 67-year-old white female who presents today for a cardiac catheterization following an abnormal stress test. She has a history of CAD, PCI, CABG, ischemic mediated cardiomyopathy, cardiac dysrhythmia/torsade de pointes, peripheral artery disease, hyperlipidemia, and hypertension. She presented to [facility] on 02/04/23 for increased SOB. She was diagnosed with RSV on 02/03/2023. She was admitted with Sepsis, Acute respiratory failure, UTI. She was admitted to ICU on Bipap. She did have an elevated DDimer. CTA was negative for PE. She was also noted to have an elevated troponin, this trended 128/2716. He echocardiogram on 02/04/23 demonstrated an ejection fraction of 10-15%. From a cardiac standpoint, the patient is doing well. She denies any palpitations, chest pain, pressure or heaviness. She denies SOB, Orthopnea, and PND. She does not have bleeding issues; no bl ood in urine, stool or nosebleeds. She does acknowledge chronic fatigue. She denies myalgias, or claudication. She does not have edema, or sudden weight gain. She denies dizziness, lightheadedness, syncopal or near syncopal episodes, and headaches. Intake Vital Signs See EMR Allergies See EMR Medications See EMR PFSH Medical History Adrenal insufficiency Anxiety Aspiration pneumonia Atherosclerotic heart disease of [place] coronary artery without angina pectoris Cardiac arrest Cardiogenic shock Cardiomyopathy Carotid stenosis Carotid stenosis, left Chronic obstructive pulmonary disease (COPD) Coronary artery disease Debility Essential hypertension Healthcare associated bacterial pneumonia History of GI bleed History of myocardial infarction Hyperlipidemia Hypokalemia Hypotension Left shoulder pain NSTEMI (non-ST elevated myocardial infarction) PAD (peripheral artery disease) Peripheral vascular insufficiency Squamous cell carcinoma of left lung STEMI (ST elevation myocardial infarction) Tobacco abuse Tobacco use Torsades de pointes Ventricular tachycardia Surgical History Aortocoronary bypass status ( 09/24/13) Hx of appendectomy Hx of tubal ligation Presence of stent in coronary artery ( 02/10/20) Family History Mother Heart disease Hypertension CVA (cerebral vascular accident) Social History Smoking Status: Current every day smoker tobacco type: cigarettes quit status: considering quitting alcohol intake: never substance use type: does not use caffeine: Yes what type of physical activity do you participate in: none frequency: does not exercise ROS Const Const: Positive for fatigue (chronic); Negative for weakness, fever(s), headache(s), chills, frequent falls, weight gain or weight loss Eyes Eyes: Negative for blind spots, loss of peripheral vision, transient loss of vision, blurry vision, change in vision, double vision, floaters or tunnel vision ENT ENT: Negative for headache(s), dizziness, Nosebleed/epistaxis, balance problems or neck pain Cardio Chest Pain: No Palpitations: No Edema: None Muscle aches with walking: None Resp Respiratory: Negative for SOB with activity, SOB at rest or SOB orthopnea SOB lying down GI GI: Negative nausea, vomiting, heartburn, bloating, vomiting blood/hematemesis, bright, red blood in stools or black,tarry stools Musc Musc: Negative for muscle aches/ myalgia, muscle weakness, joint pain or balance problems Neuro Neuro: Negative for dizziness, lightheadedness, near syncope, syncope, orthostatic symptoms, frequent falls, headache(s), weakness, blurry vision or double vision Tyrese Hematologic/Lymphatic: Negative for easy bleeding or easy bruising Endo Endo: Positive for fatigue (chronic) Cardiology Exam Const Appearance: cooperative, healthy appearing, comfortable, no acute distress, well developed and well groomed Nutritional Appearance: average body habitus Orientation: alert, awake and oriented x3 Head Head: normal to inspection, normocephalic and atraumatic Ears: hearing grossly normal bilaterally Nose: external nose normal and nares normal Face and Sinus: face symmetric Eyes Eyelids: eyelids normal Pupils: PERRL EOM: EOM intact bilaterally Neck Neck: normal visual inspection and full ROM Carotids: normal carotid upstroke carotid endarterectomy: Left Chest Chest inspection: normal inspection of the chest, symmetric chest movement and normal respiratory effort Auscultation: Bilateral: Diminished Lung Sounds Cardio Palpation: nor (more content not included)...[facility] 02-11-2023 Discharge summary Author Dewayne Cleveland [facility] February 11, 2023 2:23pm Note Date/Time February 11, 2023 11:36am [facility] Medical Records Department [address] [place] [address] Discharge Summary 02/11/23 1131 MR#: [id number] Acct: [id number] Name: JONELLE CORONADO Rep #:[id number] : 1955 67 From: Dewayne Wolfe PCP: HERSON Matthews Status:ADM IN [facility] Prov[facility] Date of Admission: 02/04/23 Date of Discharge: 02/11/23 Primary Care Physician: HERSON Matthews Consultations 02/04/23 06:41 Consult: Cardiology Routine Consulting Provider: [facility] Reason for Consult: Elevated troponin likely due to non-STEMI type II EMERGENT Consult: No MD Notified: Yes Date Notified: 02/04/23 Time Notified: 09:13 Method of Notification: Verbal Method of Consult:: In-Person 02/04/23 08:11 Consult: Duct Maker / Pulmonary Medicine Routine Consulting Provider: [facility] Reason for Consult: RSV, on Bipap EMERGENT Consult: No MD Notified: Yes Date Notified: 02/04/23 Time Notified: 08:11 Method of Notification: Verbal Reason For Visit: SEVERE ACUTE RSV PNEUMONITIS WITH BACTERIAL Diagnosis Discharge Diagnosis (1) RSV bronchitis: Status: Acute Code(s): J20.5 - Acute bronchitis due to respiratory syncytial virus (2) Secondary bacterial pneumonia: Status: Acute Code(s): J15.9 - Unspecified bacterial pneumonia (3) COPD exacerbation: Status: Inactive Code(s): J44.1 - Chronic obstructive pulmonary disease with (acute) exacerbation (4) Acute respiratory failure: Status: Acute Code(s): J96.00 - Acute respiratory failure, unspecified whether with hypoxia or hypercapnia Qualifiers: Respiratory failure complication: hypoxia and hypercapnia Qualified Code(s): J96.01 - Acute respiratory failure with hypoxia; J96.02 - Acute respiratory failure with hypercapnia (5) Elevated troponin I level: Status: Acute Code(s): R79.89 - Other specified abnormal findings of blood chemistry (6) Acute metabolic encephalopathy: Status: Acute Code(s): G93.41 - Metabolic encephalopathy Plan 67-year-old female was admitted for shortness of breath, acute on chronic got worse for 2 days after RSV diagnosis. Patient is on home oxygen 3 L and undiagnosable. 1. Acute combined respiratory failure secondary to RSV pneumonitis in the setting of COPD exacerbation, chronic cigarette smoking/nicotine use patient is being admitted in ICU. Continue bronchodilator and steroid. IV Solu-Medrol changed to prednisone 40 mg daily for 5 days as per therapy. BiPAP at night. Incentive spirometry and PEP. Duct Maker signed off. She does have a history of squamous cell lung cancer that was treated however she continues to smoke 02/11: patient discharged only on prednisone 40 mg daily for 4 more days. Follow-up in pulmonary clinic. Hold hydrocortisone while patient is taking prednisone. 2. Acute metabolic encephalopathy related to respiratory failure as mentioned above: Currently patient is awake and alert related x 3. Acute encephalopathy resolved. 02/03 E. coli UTI: Patient had 8 days of IV antibiotics ceftriaxone. No need for further antibiotic. 3. HTN/HLD/carotid stenosis/peripheral artery disease/elevated troponin/chronicsystolic CHF ? Echo with significant reduced EF to 10 to 15%. Severe segmental systolic dysfunction. Mitral valve structurally normal with mild MR. 1 to 2+ TR. RVSP 34 mmHg. Mild diffuse aortic valve thickening no aortic stenosis. Cannot exclude mobile mass on posterior medial mitral valve papillary or chordae. Troponin was elevated. Evaluated by cardiology seem to be due to increased hypoxia. Currently not appropriate for persuasion of ischemic workup but may be outpatient basis. Negative stress test in 2021. Low-dose Entresto and SGLT2. Switch metoprolol to Coreg. Spironolactone if patient can tolerate. Recommended repeat echo in 1 to 3 months. 02/11: Metoprolol was not changed to Coreg as her SBP is 110s and apprehensive of hypotension. Patient already on Entresto.Prescriptions given for empagliflozin, Entresto and follow-up in cardiology clinic. 3. GERD with history of GI bleed ? Continue with PPI ? Stable 4. Adrenal insufficiency ? Continue with hydrocortisone and Solu-Medrol 5. UTI: Urine culture shows more than 8000 colonies of E. coli, Klebsiella pneumoniae 25,000-50,000 suggestive of E. coli UTI and coronation of Klebsiella. Continue with IV antibiotics. Blood cultures x 2 negative for 5 days. ? Continue with antibiotics DVT: Therapeutic Lovenox Discharge medication reconciliation done. Discharge follow-up instructions completed. Discharge process discussed with the patient and all questions wereanswered to patient's satisfaction. Follow with PCP in 1 to 2 weeks Total time spent, exact 35 minutes on discharge meds reconciliation, examination, coordination of care with nurses and ancillary staff, review of imaging and blood test and discussion with the patient on follow-up instructions. Medications at Discharge Home Medications lorazepam 1 mg tablet (Ativan) 1 mg PO QHS 04/15/20 hydrocortisone 10 mg tablet 20 mg PO .COMPLEX adrenal insufficiency 02/04/21 diazepam 5 mg tablet 2.5 mg (1/2 x 5 mg) PO Q8 PRN Muscle Spasm #10 tabs 06/17/21 cilostazol 50 mg tablet 50 mg PO BID 12/18/21 evolocumab 140 mg/mL subcutaneous pen injector (Repatha SureClick) 140 mg [id number] #2 mL 05/18/22 escitalopram oxalate 20 mg tablet (Lexapro) 20 mg PO DAILY 06/30/22 nitroglycerin 0.4 mg sublingual tablet 0.4 mg sublingual Q5-15M PRN chest pain #25 tabs 06/30/22 metoprolol tartrate 25 mg tablet 25 mg PO BID #180 tabs 07/14/22 ticagrelor 90 mg tablet 90 mg PO BID blood thinner #180 tabs 08/16/22 aspirin 81 mg tablet,delayed release (Adult Low Dose Aspirin) 81 mg PO DAILY 01/03/23 hydrocodone-homatropine 5 mg-1.5 mg/5 mL (5 mL) oral syrup (Hycodan) 5 ml PO Q6HPRN cough 5 days #50 mL 02/03/23 empagliflozin 10 mg tablet (Jardiance) 10 mg PO DAILY #30 tabs 02/11/23 pantoprazole 40 mg tablet,delayed release (Protonix) 40 mg PO DAILY #30 tabs 02/11/23 prednisone 20 mg tablet 40 mg (2 x 20 mg) PO DAILY 4 days #8 tabs 02/11/23 sacubitril 24 mg-valsartan 26 mg tablet (Entresto) 1 tab PO BID #60 tabs 02/11/23 Physical Exam Narrative Seen and examined. Overall patient feeling better than yesterday. Patient on BiPAP at night 35%. On 5 L of oxygen during daytime. Patient chronically on 3 L of oxygen at home. On conveyor monitor, sinus rhythm.Patient wants to go home. Although patient required 6 L on walking but she states he feels normal and doesnot feel dyspneic. The option was given to stay 1 more night but she states he feels fine to go home. Physical exam General: Alert, Oriented x3, Cooperative HEENT: Atraumatic, PERRLA, EOMI, Normocephalic Oral: No Gingival or Mucosal Lesions/ Ulcerations Neck: Supple, No JVD, Negative Carotid Bruits Lungs: Air entry diminished in bilateral lung bases. Bilateral expiratory rhonchi. No tachypnea. Cardiovascular: Regular rate, Regular Rhythm, Normal S1, Normal S2, No murmurs Abdomen: Bowel Sounds Present, Soft, Non Tender, Non-Distended : No renal angle tenderness. No suprapubic tenderness. Extremities: No edema, Capillary Refill Less than 3 Seconds Skin: No rashes, No breakdown Musculoskeletal: No Tenderness to Palpation of Joints or Extremities. ROM full and intact. Neurological: Cranial nerves II-XII grossly intact, DTR 2+/4. No acute focal neurological deficit. Psych/Mental Status: Normal Affect, Appropriate. Weight / BMI Weight Weight: 128 lb 1.417 oz Body Mass Index (BMI) 23.6 ABG / Lab / Microbiology Data 02/08/23 05:55 02/08/23 05:55 Microbiology: Microbiology 02/04/23 03:27 Blood Culture (Wb) - Anticubital Left Blood Culture - Final No growth in 5 days. 02/04/23 03:18 Blood Culture (Wb) - Left Hand Blood Culture - Final No growth in 5 days. 02/04/23 04:07 Urine, Clean Catch Urine Culture - Final Escherichia coli Klebsiella pneumoniae sp pneum 02/06/23 20:28 Stool Stool Occult Blood (MILDRED) - Final D/C Instructions Discharge Diet: No restrictions Weight Bearing Status: Weight bearing as tolerated Call your doctor if you observe: Fever of 101 or Higher, Coldness, Increased Pain, Numbness or Tingling, Change in Color, Inability to urinate, Inability to have a bowel movement, Using more than 1 pad per hour, Shortness of breath, Dizziness, Fainting spells, Swelling in the ankles, Chest pain, Prolonged hiccupping, Increased palpitations (irregular heartbeat) and Calf discomfort When: IN 2 WEEKS Meaningful Use Info Meaningful Use Diagnoses (Choose all that apply): None applicable Discharge Plan Admission Admit Date/Time: 02/04/23 06:12 Primary Reason for Your Visit: COPD exacerbation from RSV bronchitis Attending Provider: Dewayne Cleveland Primary Care Provider: Patsy Stafford Consulting Providers: Prince Ortega; Karime Cota; Nina Wilson; Eunice Sharma; Cj Rain; Cruz Reynolds; Braeden Nino; Rahul Curtis; Raheel Bradley; Jazmine Smith; Bakari Tan; Montez Lara; Kal Lopez; Nicolette Bullock; Alexy John; Rufus Arreola; Rene Solo; Jovany Castro; Eduardo Bermudez CLINICAL LAB CLERK; Karime Roblero NP; Lisa Irizarry; Juan Dupree Instructions Additional Instructions / Restrictions: Patient completed 8 days of IV antibiotics. Metoprolol did not change to Coreg because of Blood pressure in 110s to 120s and Hanssen of hypotension. Patient on multiple antihypertensive, pain and Ativan medications Discharge Orders/Prescriptions Prescriptions: New Entresto 24-26 mg Tablet 1 tab PO BID Qty: 60 2RF Rx Instructions: Hold for SBP less than 90 mmHg Jardiance 10 mg Tablet 10 mg PO DAILY Qty: 30 2RF Rx Instructions: Hold if patient gets vaginitis/moniliasis pantoprazole [Protonix] 40 mg tablet,delayed release (DR/EC) 40 mg PO DAILY Qty: 30 2RF Continued lorazepam [Ativan] 1 mg tablet 1 mg PO QHS cilostazol 50 mg tablet 50 mg PO BID escitalopram oxalate [Lexapro] 20 mg tablet 20 mg PO DAILY nitroglycerin 0.4 mg tablet, sublingual 0.4 mg sublingual Q5-15M PRN (Reason: chest pain) Qty: 25 6RF Rx Instructions: do not exceed 3 doses per episode aspirin [Adult Low Dose Aspirin] 81 mg tablet,delayed release (DR/EC) 81 mg PO DAILY diazepam 5 MG tablet 2.5 mg PO Q8 PRN (Reason: Muscle Spasm) Qty: 10 0RF hydrocodone-homatropine [Hycodan] 5-1.5 mg/5 mL (5 mL) syrup 5 ml PO Q6H PRN (Reason: cough) 5 Days Qty: 50 0RF prednisone 20 mg tablet 40 mg PO DAILY 4 Days Qty: 8 0RF Repatha SureClick 140 mg/mL pen injector 140 mg SC Q2W Qty: 2 11RF metoprolol tartrate 25 mg tablet 25 mg PO BID Qty: 180 3RF ticagrelor 90 mg tablet 90 mg PO BID Qty: 180 3RF Held hydrocortisone 10 mg tablet 20 mg PO .COMPLEX Hold Instructions: Hold while taking prednisone. Patient Comments: TAKE 2 TABLETS BY MOUTH at 7AM and ONE TABLET at 7PM Rx Instructions: 20 mg PO TAKE 2 TABLETS BY MOUTH at 7AM and ONE TABLET at 7PM; Discontinued lisinopril 2.5 mg tablet 2.5 mg PO DAILY Qty: 90 3RF Referrals / Follow Up: Loy Matthew DO [Med Staff - Active Staff] - 02/25/23 9:15 am Karime Roblero NP, NP-C [Non-Staff -Ordering Privileges] - 03/08/23 10:30 am Patsy Stafford NP-C [Primary Care Provider] - 02/18/23 1:20 pm Disposition Disposition (needs filled in before D/C Order can be placed): Home, Self Care Charges/Coding Visit Charges Inpatient E&M: 78594 Disch Hosp >30min 02/11/23 1423 <Electronically signed by Dewayne Cleveland MD> Cosigner Signature (if applicable): CC: CLINICAL LAB CLERK-C Patsy Stafford; Dr. Dewayne Cleveland MD~ Signed [facility] Work Phone: 1(391) 452-199112-29-2023 Discharge summary Author Dewayne Cleveland [facility] February 11, 2023 11:31am Note Date/Time February 11, 2023 11:19am [facility] Medical Records Department [address] [place] [address] Instructions for Home/Discharge Instructions 02/11/23 1118 MR#: [id number] Acct: [id number] Name: JONELLE CORONADO Rep #:[id number] : 1955 67 From: Dewayne Wolfe PCP: HERSON Matthews Status:ADM IN Discharge Instructions Diet Discharge Diet: No restrictions Activity Discharge Activity: Return to Normal Activity Weight Bearing Status: Weight bearing as tolerated Dressing / Incision Call your doctor if you observe: Fever of 101 or Higher, Coldness, Increased Pain, Numbness or Tingling, Change in Color, Inability to urinate, Inability to have a bowel movement, Using more than 1 pad per hour, Shortness of breath, Dizziness, Fainting spells, Swelling in the ankles, Chest pain, Prolonged hiccupping, Increased palpitations (irregular heartbeat) and Calf discomfort Follow Up Care When: IN 2 WEEKS Test Results: Test results from this visit will be discussed in further detail at your follow- up appointment, if applicable. Discharge Plan Admission Admit Date/Time: 02/04/23 06:12 Attending Provider: Dewayne Cleveland Primary Care Provider: Patsy Stafford Consulting Providers: Prince Ortega; Karime Cota; Nina Wilson; Eunice Sharma; Cj Rain; Cruz Reynolds; Braeden Nino; Rahul Curtis; Raheel Bradley; Jazmine Smith; Bakari Tan; Montez Lara; Kal Lopez; Nicolette Bullock; Alexy John; Rufus Arreola; Rene Solo; Jovany Castro; Eduardo Bermudez CLINICAL LAB CLERK; Karime Roblero NP; Lisa Irizarry; Juan Dupree Instructions Additional Instructions / Restrictions: Patient completed 8 days of IV antibiotics. Metoprolol did not change to Coreg because of Blood pressure in 110s to 120s and Hanssen of hypotension. Patient on multiple antihypertensive, pain and Ativan medications Discharge Orders/Prescriptions Prescriptions: New Entresto 24-26 mg Tablet 1 tab PO BID Qty: 60 2RF Rx Instructions: Hold for SBP less than 90 mmHg Jardiance 10 mg Tablet 10 mg PO DAILY Qty: 30 2RF Rx Instructions: Hold if patient gets vaginitis/moniliasis pantoprazole [Protonix] 40 mg tablet,delayed release (DR/EC) 40 mg PO DAILY Qty: 30 2RF Continued lorazepam [Ativan] 1 mg tablet 1 mg PO QHS cilostazol 50 mg tablet 50 mg PO BID escitalopram oxalate [Lexapro] 20 mg tablet 20 mg PO DAILY nitroglycerin 0.4 mg tablet, sublingual 0.4 mg sublingual Q5-15M PRN (Reason: chest pain) Qty: 25 6RF Rx Instructions: do not exceed 3 doses per episode aspirin [Adult Low Dose Aspirin] 81 mg tablet,delayed release (DR/EC) 81 mg PO DAILY diazepam 5 MG tablet 2.5 mg PO Q8 PRN (Reason: Muscle Spasm) Qty: 10 0RF hydrocodone-homatropine [Hycodan] 5-1.5 mg/5 mL (5 mL) syrup 5 ml PO Q6H PRN (Reason: cough) 5 Days Qty: 50 0RF prednisone 20 mg tablet 40 mg PO DAILY 4 Days Qty: 8 0RF Repatha SureClick 140 mg/mL pen injector 140 mg SC Q2W Qty: 2 11RF metoprolol tartrate 25 mg tablet 25 mg PO BID Qty: 180 3RF ticagrelor 90 mg tablet 90 mg PO BID Qty: 180 3RF Held hydrocortisone 10 mg tablet 20 mg PO .COMPLEX Hold Instructions: Hold while taking prednisone. Patient Comments: TAKE 2 TABLETS BY MOUTH at 7AM and ONE TABLET at 7PM Rx Instructions: 20 mg PO TAKE 2 TABLETS BY MOUTH at 7AM and ONE TABLET at 7PM; Discontinued lisinopril 2.5 mg tablet 2.5 mg PO DAILY Qty: 90 3RF Referrals / Follow Up: Loy Matthew DO [Med Staff - Active Staff] - Within 2 Weeks Karime Roblero NP, HERSON [Non-Staff -Ordering Privileges] - 03/08/23 10:30 am Patsy Stafford NP-C [Primary Care Provider] - Disposition Disposition (needs filled in before D/C Order can be placed): Home, Self Care 02/11/23 1131<Electronically signed by Dewayne Cleveland MD>Dewayne Cleveland MD CC: HERSON Bermudez; HERSON Roblero; HERSON Stafford; Cruz Reynolds MD; Dr. Nina Wilson MD; Dr. Eunice Sharma MD; Dr. Cj Rain MD; Dr. Braeden Nino MD; Dr. Prince Ortega DO; Dr. Rahul Curtis MD; Dr. Raheel Bradley MD; Dr. Jazmine Smith MD; Dr. Bakari Tan MD; Dr. Kal Lopez MD; Dr. Montez Lara MD; Dr. Nicolette Bullock MD; Dr. Juan Dupree MD; Dr. Alexy John MD; Dr. Rene Solo MD; Dr. Rufus Arreola MD; Dr. Jovany Castro MD; Karime Cota; RAQUEL Luis ~ Signed [facility] Work Phone: 1(413) 121-135812-28-2023 Progress note Author [facility] February 10, 2023 4:38pm Note Date/Time February 10, 2023 4:38pm [facility] Medical Records Department [address] [place] [address] Progress Note - Hospitalist 02/10/23 1630 MR#: [id number] Acct: [id number] Name: JONELLE CORONADO Rep #:[id number] : 1955 67 From: Dewayne Wolfe PCP: Patsy Harry, CLINICAL LAB CLERK-C Status:ADM IN Location: ICU CVICU20 1-1 Reason for Visit Reason for Visit: Diagnoses Sepsis, unspecified organism (02/04/23) Hyperlipidemia, unspecified (02/04/23) Metabolic encephalopathy (02/04/23) Essential (primary) hypertension (02/04/23) Cardiomyopathy, unspecified (02/04/23) Peripheral vascular disease, unspecified (02/04/23) Unspecified bacterial pneumonia (02/04/23) Acute bronchitis due to respiratory syncytial virus (02/04/23) Chronic obstructive pulmonary disease with (acute) exacerbation (02/04/23) Acute respiratory failure with hypoxia (02/04/23) Acute respiratory failure with hypercapnia (02/04/23) Urinary tract infection, site not specified (02/04/23) Hypoxemia (02/04/23) Other specified abnormal findings of blood chemistry (02/04/23) Tobacco use (02/04/23) Presence of aortocoronary bypass graft (02/04/23) Presence of coronary angioplasty implant and graft (02/04/23) Objective Data Objective Data Vital Signs: Vital Signs Temp Pulse Resp BP Pulse Ox O2 Del Method O2 Flow Rate 97.8 F 82 16 109/70 93 Nasal Cannula 2 02/10/23 08:15 02/10/23 12:15 02/10/23 12:15 02/10/23 08:15 02/10/23 12:23 02/10/23 13:57 02/10/23 13:57 FiO2 35 02/10/23 07:20 Oxygen Flow Rate (L/min) 2 Oxygen Delivery Method Nasal Cannula Weight: 132 lb 15.02 oz Body Mass Index (BMI) 24.4 Intake & Output: Intake and Output for Last 24 Hours 02/08/23 02/09/23 02/10/23 23:59 23:59 23:59 Intake Total 1595 / 1595 1095 / 1095 415 / 415 Output Total 800 / 800 750 / 850 400 / 400 Balance 795 / 795 345 / 245 Lab / Micro Data 02/08/23 05:55 02/08/23 05:55 Micro: Microbiology 02/04/23 03:27 Blood Culture (Wb) - Anticubital Left Blood Culture - Final No growth in 5 days. 02/04/23 03:18 Blood Culture (Wb) - Left Hand Blood Culture - Final No growth in 5 days. 02/04/23 04:07 Urine, Clean Catch Urine Culture - Final Escherichia coli Klebsiella pneumoniae sp pneum 02/06/23 20:28 Stool Stool Occult Blood (MILDRED) - Final Physical Exam Narrative Seen and examined. Overall patient feeling better than yesterday. Patient on BiPAP at night 35%. On 5 L of oxygen during daytime. Patient chronically on 3 L of oxygen at home. On conveyor monitor sinus rhythm at 84 beats blood. Physical exam General: Alert, Oriented x3, Cooperative HEENT: Atraumatic, PERRLA, EOMI, Normocephalic Oral: No Gingival or Mucosal Lesions/ Ulcerations Neck: Supple, No JVD, Negative Carotid Bruits Lungs: Air entry diminished in bilateral lung bases. Bilateral expiratory rhonchi. No tachypnea. Dyspnea on exertion. Cardiovascular: Regular rate, Regular Rhythm, Normal S1, Normal S2, No murmurs Abdomen: Bowel Sounds Present, Soft, Non Tender, Non-Distended : No renal angle tenderness. No suprapubic tenderness. Extremities: No edema, Capillary Refill Less than 3 Seconds Skin: No rashes, No breakdown Musculoskeletal: No Tenderness to Palpation of Joints or Extremities Neurological: Cranial nerves II-XII grossly intact, DTR 2+/4. No acute focal neurological deficit. Psych/Mental Status: Normal Affect, Appropriate. Assessment & Plan Assessment/Plan (1) RSV bronchitis: (2) Secondary bacterial pneumonia: (3) COPD exacerbation: (4) Acute respiratory failure: QUALIFIERS: Respiratory failure complication: hypoxia and hypercapnia Qualified Code(s): J96.01 - Acute respiratory failure with hypoxia; J96.02 - Acute respiratory failure with hypercapnia (5) Elevated troponin I level: (6) Acute metabolic encephalopathy: PLAN: Plan 1. Acute combined respiratory failure secondary to RSV pneumonitis in the setting of COPD exacerbation, chronic cigarette smoking/nicotine use patient is being admitted in ICU. Continue bronchodilator and steroid. IV Solu-Medrol changed to prednisone 40 mg daily for 5 days as per therapy. BiPAP at night. Incentive spirometry and PEP. Duct Maker signed off. She does have a history of squamous cell lung cancer that was treated however she continues to smoke 2. Acute metabolic encephalopathy related to respiratory failure as mentioned above: Currently patient is awake and alert related x 3. Acute encephalopathy resolved. 3. HTN/HLD/carotid stenosis/peripheral artery disease/elevated troponin/chronicsystolic CHF ? Echo with significant reduced EF to 10 to 15%. Severe segmental systolic dysfunction. Mitral valve structurally normal with mild MR. 1 to 2+ TR. RVSP 34 mmHg. Mild diffuse aortic valve thickening no aortic stenosis. Cannot exclude mobile mass on posterior medial mitral valve papillary or chordae. Troponin was elevated. Evaluated by cardiology seem to be due to increased hypoxia. Currently not appropriate for persuasion of ischemic workup but may beoutpatient basis. Negative stress test in 2021. Low-dose Entresto and SGLT2. Switch metoprolol to Coreg. Spironolactone if patient can tolerate. Recommended repeat echo in 1 to 3 months. ? 3. GERD with history of GI bleed ? Continue with PPI ? Stable 4. Adrenal insufficiency ? Continue with hydrocortisone and Solu-Medrol 5. UTI: Urine culture shows more than 8000 colonies of E. coli, Klebsiella pneumoniae 25,000-50,000 suggestive of E. coli UTI and coronation of Klebsiella. Continue with IV antibiotics. Blood cultures x 2 negative for 5 days. ? Continue with antibiotics DVT: Therapeutic Lovenox Charges/Coding Visit Charges Inpatient E&M: 37835 Subs Hosp L3 02/10/23 1638 <Electronically signed by Dewayne Cleveland MD> Cosigner Signature (if applicable): CC: ~ Signed [facility] Work Phone: 1(404) 587-132312-28-2023 Progress note Author Loy Matthew [facility] February 10, 2023 8:09am Note Date/Time February 10, 2023 7:45am [facility] Medical Records Department [address] [place] [address] Progress Note - Duct Maker 02/10/23 0742 MR#: [id number] Acct: [id number] Name: JONELLE CORONADO Rep #:[id number] : 1955 67 From: Loy Matthew DO PCP: HERSON Matthews Status:ADM IN Location: ICU CVICU20 1-1 Assessment & Plan Assessment/Plan (1) Acute hypercapnic respiratory failure: (2) Urinary tract infection: (3) Sepsis: (4) RSV bronchitis: (5) Tobacco abuse: PLAN: Plan RECOMMENDATIONS: 1. Continue to wean supplemental oxygen to maintain saturations at or above 90%. 2. Continue antimicrobials. 3. Continue bronchodilators and steroids. Okay to transition to prednisone 40 mg daily with plans for a 5-day burst at discharge. 4. Empiric BiPAP therapy nightly. 5. Encourage incentive spirometer use and mobilize patient as tolerated. 6. Will sign off at this time from a critical care perspective. Please call with any additional questions. IMPRESSIONS: 1. Acute combined respiratory failure secondary to RSV pneumonitis in the setting of probable COPD exacerbation The patient does have an extensive smoking history with stigmata consistent withCOPD previously. 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 The patient has responded well clinically to therapeutic interventions including BiPAP, bronchodilators and steroids. Continue to wean supplemental oxygen as tolerated to maintain saturations at or above 90%. Encourage incentive spirometer use and mobilize patient as tolerated. 2. Elevated troponin Echocardiogram revealed a severely depressed ejection fraction. Cardiology is following to assist with medical management, but is not planning any form of cardiac catheterization. 3. E. coli UTI Continue antimicrobials to complete treatment course. 4. History of GI bleed/adrenal insufficiency/osteoarthritis/peripheral vasculardisease/continued smoking/lack of pulmonary care Complicates care, management, recovery and prognosis. Continue home medicationsas indicated. This note was generated with 1-800-DENTIST dictation software. It may contain incorrectwords, spelling, and punctuation that were not noted in checking the note beforesigning. Subjective Subjective The patient was seen and examined at the bedside this morning. Events from the last 24 hours have been reviewed. The patient remains afebrile hemodynamically stable. No overnight issues were identified by the nursing staff. Objective Data Objective Data The patient's most recent lab work, culture data and imaging studies have all been personally reviewed. Respiratory viral panel was positive for RSV. Urine culture dated February 04 was positive for E. coli and Klebsiella pneumonia. Vital Signs: Vital Signs Temp Pulse Resp BP Pulse Ox O2 Del Method O2 Flow Rate 98.2 F 77 17 94/53 L 97 Bi-pap 5 02/10/23 06:15 02/10/23 07:20 02/10/23 07:20 02/10/23 06:15 02/10/23 07:20 02/10/23 06:15 02/09/23 21:00 FiO2 35 12/28/23 07:20 Oxygen Flow Rate (L/min) 5 Oxygen Delivery Method Bi-pap Weight: 132 lb 15.02 oz Body Mass Index (BMI) 24.4 Intake & Output: Intake and Output for Last 24 Hours 02/08/23 02/09/23 02/10/23 23:59 23:59 23:59 Intake Total 1595 / 1595 1095 / 1095 Output Total 800 / 800 750 / 850 100 / 100 Balance 795 / 795 345 / 245 -100 / -100 Lab / Micro Data Attestation: I reviewed the patient's lab results. 02/08/23 05:55 02/08/23 05:55 Micro: Microbiology 02/04/23 03:27 Blood Culture (Wb) - Anticubital Left Blood Culture - Final No growth in 5 days. 02/04/23 03:18 Blood Culture (Wb) - Left Hand Blood Culture - Final No growth in 5 days. 02/04/23 04:07 Urine, Clean Catch Urine Culture - Final Escherichia coli Klebsiella pneumoniae sp pneum 02/06/23 20:28 Stool Stool Occult Blood (MILDRED) - Final Radiography Diagnostic Testing: Radiology Impression Venous Doppler Study 02/04/23 06:29 Interpretation Summary Deep veins of the bilateral lower extremities are patent and compressible segmentally. There is no evidence of bilateral lower extremity deep vein thrombosis. The left great saphenous vein appears patent and compressible segmentally. Ordering Physician: Prince Ortega Referring Physician: Patsy Stafford Performed By: Julissa Panda RVT Physical Exam Const alert and no apparent distress General Appearance: cooperative HEENT normocephalic and head/scalp atraumatic Eyes PERRL, EOMs intact bilaterally and conjunctivae normal Neck supple General: trachea midline Chest inspection of chest normal Resp normal respiratory effort Auscultation: diminished lung sounds; Negative for rales, rhonchi or wheezes Cardio regular rate and regular rhythm GI normal to inspection, nondistended, normoactive bowel sounds Extremity no clubbing, cyanosis or edema Skin no rashes or lesions noted Neuro oriented x3, CN's II-XII intact bilaterally, moves all extremities and no focal motor deficits Psych cooperative and affect normal Charges/Coding Visit Charges Inpatient E&M: 61988 Subs Hosp L2 02/10/23 0809 <Electronically signed by Loy Matthew DO> Cosigner Signature (if applicable): CC: ~ Signed [facility] Work Phone: 1(957) 940-710312-27-2023 Progress note Author Loy Matthew [facility] February 09, 2023 10:05am Note Date/Time February 09, 2023 9:26am [facility] Medical Records Department [address] [place] [address] Progress Note - Duct Maker 02/09/2324 MR#: [id number] Acct: [id number] Name: JONELLE CORONADO Rep #:[id number] : 1955 67 From: Loy Matthew DO PCP: HERSON Matthews Status:ADM IN Location: ICU CVICU20 1-1 Assessment & Plan Assessment/Plan (1) Acute hypercapnic respiratory failure: (2) Urinary tract infection: (3) Sepsis: (4) RSV bronchitis: (5) Tobacco abuse: PLAN: Plan RECOMMENDATIONS: 1. Continue to wean supplemental oxygen to maintain saturations at or above 90%. 2. Continue antimicrobials. 3. Continue bronchodilators and steroids. 4. Empiric BiPAP therapy nightly. 5. Encourage incentive spirometer use and mobilize patient as tolerated. 6. The patient is medically stable for transfer out of the intensive care unit. IMPRESSIONS: 1. Acute combined respiratory failure secondary to RSV pneumonitis in the setting of probable COPD exacerbation The patient does have an extensive smoking history with stigmata consistent withCOPD previously. 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 The patient has responded well clinically to therapeutic interventions including BiPAP, bronchodilators and steroids. Continue to wean supplemental oxygen as tolerated to maintain saturations at or above 90%. Encourage incentive spirometer use and mobilize patient as tolerated. 2. Elevated troponin Echocardiogram revealed a severely depressed ejection fraction. Cardiology is following to assist with medical management, but is not planning any form of cardiac catheterization. 3. E. coli UTI Continue antimicrobials to complete treatment course. 4. History of GI bleed/adrenal insufficiency/osteoarthritis/peripheral vasculardisease/continued smoking/lack of pulmonary care Complicates care, management, recovery and prognosis. Okay to continue hydrocortisone in addition to Solu-Medrol. Continue remainder of home medications as indicated. This note was generated with 1-800-DENTIST dictation software. It may contain incorrectwords, spelling, and punctuation that were not noted in checking the note beforesigning. Subjective Subjective The patient was seen and examined at the bedside this morning. Events from the last 24 hours have been reviewed. The patient is currently afebrile, hemodynamically stable and maintaining appropriate oxygen saturations on 4 L/minvia nasal cannula. The patient's oxygenation status has improved quite a bit since yesterday. She reported that she typically utilizes 2 L/min of supplemental oxygen, but only on a nightly basis. Objective Data Objective Data The patient's most recent lab work, culture data and imaging studies have all been personally reviewed. Respiratory viral panel was positive for RSV. Urine culture dated February 04 was positive for E. coli and Klebsiella pneumonia. Vital Signs: Vital Signs Temp Pulse Resp BP Pulse Ox O2 Del Method O2 Flow Rate 97.3 F L 105 H 23 H 96/80 90 Nasal Cannula 4 02/09/23 07:00 02/09/23 09:19 02/09/23 08:00 02/09/23 08:00 02/09/23 08:37 02/09/23 08:00 02/09/23 08:37 FiO2 35 02/09/23 07:00 Oxygen Flow Rate (L/min) 4 Oxygen Delivery Method Nasal Cannula Weight: 131 lb 6.328 oz Body Mass Index (BMI) 24.0 Intake & Output: Intake and Output for Last 24 Hours 02/07/23 02/08/23 02/09/23 23:59 23:59 23:59 Intake Total 1248.3333 / 1448.3333 1595 / 1595 200 / 200 Output Total 2600 / 2700 800 / 800 Balance -1351.6667 / -1251.6667 795 / 795 200 / 200 Lab / Micro Data Attestation: I reviewed the patient's lab results. 02/08/23 05:55 02/08/23 05:55 Micro: Microbiology 02/04/23 03:27 Blood Culture (Wb) - Anticubital Left Blood Culture - Final No growth in 5 days. 02/04/23 03:18 Blood Culture (Wb) - Left Hand Blood Culture - Final No growth in 5 days. 02/04/23 04:07 Urine, Clean Catch Urine Culture - Final Escherichia coli Klebsiella pneumoniae sp pneum 02/06/23 20:28 Stool Stool Occult Blood (MILDRED) - Final Radiography Diagnostic Testing: Radiology Impression Venous Doppler Study 02/04/23 06:29 Interpretation Summary Deep veins of the bilateral lower extremities are patent and compressible segmentally. There is no evidence of bilateral lower extremity deep vein thrombosis. The left great saphenous vein appears patent and compressible segmentally. Ordering Physician: Prince Ortega Referring Physician: Patsy Stafford Performed By: Julissa Panda RVT Physical Exam Const alert and no apparent distress Constitutional Narrative: Sitting in bedside recliner. General Appearance: cooperative HEENT normocephalic and head/scalp atraumatic Eyes PERRL, EOMs intact bilaterally and conjunctivae normal Neck supple General: trachea midline Chest inspection of chest normal Resp normal respiratory effort Auscultation: diminished lung sounds; Negative for rales, rhonchi or wheezes Cardio regular rate and regular rhythm GI normal to inspection, nondistended, normoactive bowel sounds Extremity no clubbing, cyanosis or edema Skin no rashes or lesions noted Neuro oriented x3, CN's II-XII intact bilaterally, moves all extremities and no focal motor deficits Psych cooperative and affect normal Charges/Coding Visit Charges Inpatient E&M: 39130 Subs Hosp L2 02/09/23 1005 <Electronically signed by Loy Matthew DO> Cosigner Signature (if applicable): CC: ~ Signed [facility] Work Phone: 1([phone]) 366-231112-27-2023 Progress note Author Juan Dupree [facility] February 09, 2023 9:09am Note Date/Time February 09, 2023 9:09am [facility] Medical Records Department [address] [place] [address] Progress Note - Hospitalist 02/09/23906 MR#: [id number] Acct: [id number] Name: JONELLE CORONADO Rep #:[id number] : 1955 67 From: Juan quintero MD PCP: HERSON Matthews Status:ADM IN Location: ICU CVICU20 1-1 Subjective Subjective Currently off BiPAP and 90% on 4 L nasal cannula Objective Data Objective Data Vital Signs: Vital Signs Temp Pulse Resp BP Pulse Ox O2 Del Method O2 Flow Rate 97.3 F L 100 23 H 96/80 90 Nasal Cannula 4 02/09/23 07:00 02/09/23 08:00 02/09/23 08:00 02/09/23 08:00 02/09/23 08:37 02/09/23 08:00 02/09/23 08:37 FiO2 35 02/09/23 07:00 Oxygen Flow Rate (L/min) 4 Oxygen Delivery Method Nasal Cannula Weight: 131 lb 6.328 oz Body Mass Index (BMI) 24.0 Intake & Output: Intake and Output for Last 24 Hours 02/08/23 02/09/23 02/10/23 03:59 03:59 03:59 Intake Total 1348.3333 / 1348.3333 1395 / 1395 200 / 200 Output Total 950 / 950 700 / 700 Balance 398.3333 / 398.3333 695 / 695 200 / 200 Lab / Micro Data 02/08/23 05:55 02/08/23 05:55 Micro: Microbiology 02/04/23 03:27 Blood Culture (Wb) - Anticubital Left Blood Culture - Final No growth in 5 days. 02/04/23 03:18 Blood Culture (Wb) - Left Hand Blood Culture - Final No growth in 5 days. 02/04/23 04:07 Urine, Clean Catch Urine Culture - Final Escherichia coli Klebsiella pneumoniae sp pneum 02/06/23 20:28 Stool Stool Occult Blood (MILDRED) - Final Radiography Diagnostic Testing: Radiology Impression Venous Doppler Study 02/04/23 06:29 Interpretation Summary Deep veins of the bilateral lower extremities are patent and compressible segmentally. There is no evidence of bilateral lower extremity deep vein thrombosis. The left great saphenous vein appears patent and compressible segmentally. Ordering Physician: Prince Ortega Referring Physician: Patsy Stafford Performed By: Julissa Panda RVT Physical Exam Narrative General: Alert, Oriented x3, Cooperative, No apparent distress HEENT: Atraumatic, PERRLA, EOMI, Normocephalic Oral: Moist Mucosa Neck: Supple, No JVD Lungs: Diminished, Normal air movement, No rhonchi, wheeze, No rales Cardiovascular: Regular rate, Regular Rhythm, Normal S1, Normal S2, No murmurs Abdomen: Soft, Non Tender, Non-Distended, No Hepato-splenomegaly Extremities: No edema, Capillary Refill Less than 3 Seconds Skin: No rashes, No breakdown Musculoskeletal: No Tenderness to Palpation of Joints or Extremities Neurological: Cranial nerves II-XII grossly intact, Motor Exam 5/5 strength throughout, Sensory exam intact to light touch and pain Psych/Mental Status: Anxious Assessment & Plan Assessment/Plan (1) RSV bronchitis: (2) Secondary bacterial pneumonia: (3) COPD exacerbation: (4) Acute respiratory failure: QUALIFIERS: Respiratory failure complication: hypoxia and hypercapnia Qualified Code(s): J96.01 - Acute respiratory failure with hypoxia;J96.02 - Acute respiratory failure with hypercapnia (5) Elevated troponin I level: (6) Acute metabolic encephalopathy: PLAN: Plan 1. Acute combined respiratory failure secondary to RSV pneumonitis in the setting of COPD exacerbation/metabolic encephalopathy/tobacco abuse ? Continue with BiPAP ? She probably does have a history of COPD will continue with inhalers as well as steroids ? The encephalopathy appears to be resolved ? She does have a history of squamous cell lung cancer that was treated however she continues to smoke 2. HTN/HLD/carotid stenosis/peripheral artery disease/elevated troponin/chronicsystolic CHF ? Echo with significant reduced EF to 10 to 15% and there is the possibility of a mobile mass on the mitral valve ? Continue with antibiotics if blood cultures do come back positive we will needto proceed with a EZ otherwise consulted cardiology and appreciate their recommendations ? We will continue with blood pressure medications and monitor make adjustments as necessary 3. GERD with history of GI bleed ? Continue with PPI ? Stable 4. Adrenal insufficiency ? Continue with hydrocortisone and Solu-Medrol 5. UTI ? Cultures pending, initial cultures show a pansensitive E. coli followed by a second gram-negative blanca ? Continue with antibiotics DVT: Therapeutic Lovenox Charges/Coding Visit Charges Inpatient E&M: 45061 Subs Hosp L2 02/09/23 0909 <Electronically signed by Juan Dupree MD> Cosigner Signature (if applicable): CC: ~ Signed [facility] Work Phone: 1([phone]) 100-938412-26-2023 Progress note Author Wyatt Wyatt [facility] February 08, 2023 3:28pm Note Date/Time February 08, 2023 7:08am [facility] Medical Records Department [address] [place] [address] Progress Note - Duct Maker 02/08/23 0704 MR#: [id number] Acct: [id number] Name: JONELLE CORONADO Rep #:[id number] : 1955 67 From: Wyatt Wyatt MD PCP: HERSON Matthews Status:ADM IN Location: ICU CVICU20 1-1 Assessment & Plan Assessment/Plan (1) Acute hypercapnic respiratory failure: (2) Urinary tract infection: (3) Sepsis: (4) RSV bronchitis: (5) Tobacco abuse: PLAN: Plan RECOMMENDATIONS: 1. Defer to cardiology on possible interventions 2. Keep steroids at current dose for now. Continue bronchodilators 3. BiPAP breaks as tolerated. Continue BiPAP with sleep. 4. Complete a 5-day course of antibiotics for UTI 5. Increase activity as tolerated 6. Wean oxygen as tolerated. Encourage incentive spirometer. 7. Hold on further diuretic therapy IMPRESSIONS: 1. Acute combined respiratory failure secondary to RSV pneumonitis in the setting of probable COPD exacerbation Patient does have an extensive smoking history with stigmata consistent with COPD previously. Patient also has a history of squamous cell lung carcinoma that is in reported remission. Patient has responded well to BiPAP clinically. Will continue with BiPAP with sleep for now, but encourage better breaks during the day. Patient does state she would be willing to be intubated if necessary. Urine currently growing E. coli, so will complete 5 days of antibiotics. Unfortunately, patient does not have PFTs, but advanced lung disease is suspected. 2. Elevated troponin Unclear etiology. Patient was tachycardic and does have an extensive cardiac history. However, patient was also severely hypoxic on presentation. Echocardiogram is showing severe depression of EF and possible mobile mass. Blood cultures are negative at this time. Cardiology has been consulted. Deferto cardiology, but will attempt to keep volume under control using intermittent Lasix. Hold today. 3. E. coli UTI Patient does have significant bacteria and leukocyte esterase on UA. However, patient also has several squamous cells. Anticipate 5 days of antibiotics given patient has not been bacteremic or hypotensive. CT of the chest is consistent with a viral etiology. Patient also has Klebsiella pneumonia, but not a pathologic levels. Both are treated by ceftriaxone. 4. Metabolic encephalopathy secondary to hypercarbia secondary to problem #1 Resolved. Still very anxious, but this appears to be baseline. Patient appears to be improving significantly with BiPAP therapy. Continue with delirium protocol. Patient will be at risk given need for BiPAP and steroids for development of delirium moving forward. 5. History of GI bleed/adrenal insufficiency/osteoarthritis/peripheral vascular disease/continued smoking/lack of pulmonary care Complicates care, management, recovery and prognosis. Okay to continue hydrocortisone in addition to Solu-Medrol. Patient does have a history of SVT. Heart rate better controlled on metoprolol Subjective Subjective Patient did okay overnight. Patient continues to be able to stay off of BiPAP during the day, but is still requiring 10 L/min. Patient did have decreased urine output overnight. Patient continues to have anxiety and coughing issues. Objective Data Objective Data Vital Signs: Vital Signs Temp Pulse Resp BP Pulse Ox O2 Del Method O2 Flow Rate 36.6 C 77 17 131/83 H 95 Bi-pap 10 02/08/23 04:00 02/08/23 06:00 02/08/23 06:00 02/08/23 06:00 02/08/23 06:00 02/08/23 06:00 02/08/23 04:00 FiO2 35 02/08/23 06:00 Oxygen Flow Rate (L/min) 10 Oxygen Delivery Method Bi-pap Weight: 58 kg Body Mass Index (BMI) 23.3 Intake & Output: Intake and Output for Last 24 Hours 02/06/23 02/07/23 02/08/23 23:59 23:59 23:59 Intake Total 33 / 1248.3333 / 1448.3333 200 / 200 Output Total 2350 / 2350 2600 / 2700 150 / 150 Balance -371.67 / -371.67 -1351.6667 / -1251.6667 50 / 50 Lab / Micro Data Attestation: I reviewed the patient's lab results. 02/08/23 05:55 02/08/23 05:55 Labs: Laboratory Results - last 24 hr 02/07/23 03:35: Reactive Lymphocytes RARE 02/08/23 05:55: WBC 8.7, RBC 4.00 L, Hgb 12.1, Hct 37.6, MCV 94.0, MCH 30.3, MCHC 32.2, RDW Std Deviation 48.2 H, RDW Coeff of Nehemiah 14.0, Plt Count 182, MPV 10.4, Immature Gran % (Auto) 0.800, Neut % (Auto) 76.8 H, Lymph % (Auto) 15.2 L,[place] % (Auto) 4.2, Eos % (Auto) 2.4, Baso % (Auto) 0.6, Absolute Neuts (auto) 6.7, Absolute Lymphs (auto) 1.33, Nucleated RBC % 0, Differential Comment SCANNED, Reactive Lymphocytes 1+, Sodium 139, Potassium 4.2, Chloride 105, Carbon Dioxide 31.0, Anion Gap 3 L, BUN 22 H, Creatinine 0.62, Estim Creat ClearCalc 42.59, Est GFR (MDRD) Af Amer 123, Est GFR (MDRD) Non-Af 102, BUN/Creatinine Ratio 35.5 H, Glucose 147 H, Calcium 8.4 L Micro: Microbiology 02/04/23 04:07 Urine, Clean Catch Urine Culture - Final Escherichia coli Klebsiella pneumoniae sp pneum 02/06/23 20:28 Stool Stool Occult Blood (MILDRED) - Final 02/04/23 03:18 Blood Culture (Wb) - Left Hand Blood Culture - Preliminary No growth in 48 hours. 02/04/23 03:27 Blood Culture (Wb) - Anticubital Left Blood Culture - Preliminary No growth in 48 hours. Physical Exam Const alert and oriented x3 Constitutional Narrative: On BiPAP during my evaluation with good synchrony General Appearance: cooperative HEENT normocephalic, head/scalp atraumatic and hearing grossly normal bilaterally Eyes PERRL, EOMs intact bilaterally and conjunctivae normal Neck no lymphadenopathy and supple Resp normal respiratory effort Effort and Inspection: prolonged expiratory phase Auscultation: wheezes; Negative for rales or rhonchi Cardio regular rate, regular rhythm, S1 normal heart sound, S2 normal heart sound, no murmurs, no rub and no gallops GI normal to inspection, nondistended, normoactive bowel sounds, soft to palpation,non-tender and non-distended Extremity normal to inspection General Extremity: clubbing; Negative for edema Skin no rashes or lesions noted Neuro oriented x3, CN's II-XII intact bilaterally, moves all extremities and no focal motor deficits Psych Activity / Motor Behavior: restless Mood & Affect: anxious Charges/Coding Visit Charges Inpatient E&M: 74575 Subs Hosp L3 02/08/23 1528 <Electronically signed by Wyatt Wyatt MD> Cosigner Signature (if applicable): CC: ~ Signed [facility] Work Phone: 1(484) 266-614112-26-2023 Progress note Author Lisa Irizarry [facility] February 08, 2023 10:15am Note Date/Time February 08, 2023 10:09am [facility] Medical Records Department [address] [place] [address] Progress Note - Cardiology 02/08/23 0911 MR#: [id number] Acct: [id number] Name: JONELLE CORONADO Rep #:[id number] : 1955 67 From: Lisa GARCÍA PCP: HERSON Matthews Status:ADM IN Location: ICU CVICU20 1-1 Subjective Subjective Pt seen and examined today. Pt notes that she did not have any CP prior to coming into hosptial. She feels her SOB came on fast as the month prior she wasin the office without any issues. Objective Data Vital Signs: Vital Signs Temp Pulse Resp BP Pulse Ox O2 Del Method O2 Flow Rate 97.9 F 70 17 128/71 H 95 Nasal Cannula 10 02/08/23 04:00 02/08/23 07:20 02/08/23 07:20 02/08/23 07:00 02/08/23 07:20 02/08/23 07:00 02/08/23 07:00 FiO2 35 02/08/23 07:20 Oxygen Flow Rate (L/min) 10 Oxygen Delivery Method Nasal Cannula Weight: 127 lb 13.89 oz Body Mass Index (BMI) 23.3 Intake & Output: Intake and Output for Last 24 Hours 02/06/23 02/07/23 02/08/23 23:59 23:59 23:59 Intake Total 1977.33 / 1977.33 1248.3333 / 1448.3333 310 / 310 Output Total 2350 / 2350 2600 / 2700 150 / 150 Balance -371.67 / -371.67 -1351.6667 / -1251.6667 160 / 160 Lab / Micro Data 02/08/23 05:55 02/08/23 05:55 Labs: Laboratory Results - last 24 hr 02/08/23 05:55: WBC 8.7, RBC 4.00 L, Hgb 12.1, Hct 37.6, MCV 94.0, MCH 30.3, MCHC 32.2, RDW Std Deviation 48.2 H, RDW Coeff of Nehemiah 14.0, Plt Count 182, MPV 10.4, Immature Gran % (Auto) 0.800, Neut % (Auto) 76.8 H, Lymph % (Auto) 15.2 L,[place] % (Auto) 4.2, Eos % (Auto) 2.4, Baso % (Auto) 0.6, Absolute Neuts (auto) 6.7, Absolute Lymphs (auto) 1.33, Nucleated RBC % 0, Differential Comment SCANNED, Reactive Lymphocytes 1+, Sodium 139, Potassium 4.2, Chloride 105, CarbonDioxide 31.0, Anion Gap 3 L, BUN 22 H, Creatinine 0.62, Estim Creat Clear Calc 42.59, Est GFR (MDRD) Af Amer 123, Est GFR (MDRD) Non-Af 102, BUN/Creatinine Ratio 35.5 H, Glucose 147 H, Calcium 8.4 L Micro: Microbiology 02/04/23 04:07 Urine, Clean Catch Urine Culture - Final Escherichia coli Klebsiella pneumoniae sp pneum Cardiology Labs/Tests 02/08/23 05:55: WBC 8.7, RBC 4.00 L, Hgb 12.1, Hct 37.6, MCV 94.0, MCH 30.3, MCHC 32.2, Plt Count 182, MPV 10.4, Immature Gran % (Auto) 0.800, Neut % (Auto) 76.8 H, Lymph % (Auto) 15.2 L, [place] % (Auto) 4.2, Eos % (Auto) 2.4, Baso % (Auto) 0.6, Absolute Neuts (auto) 6.7, Nucleated RBC % 0, Sodium 139, Potassium 4.2, Chloride 105, Carbon Dioxide 31.0, Anion Gap 3 L, BUN 22 H, Creatinine 0.62, Est GFR (MDRD) Af Amer 123, Est GFR (MDRD) Non-Af 102, BUN/Creatinine Ratio 35.5 H, Glucose 147 H, Calcium 8.4 L Rhythm: NSR Physical Exam Const alert and oriented x3 General Appearance: cooperative HEENT normocephalic, head/scalp atraumatic and hearing grossly normal bilaterally Eyes PERRL, EOMs intact bilaterally and conjunctivae normal Neck no lymphadenopathy and supple Resp normal respiratory effort Effort and Inspection: prolonged expiratory phase Auscultation: diminished lung sounds bilateral; Negative for rales or rhonchi Cardio regular rhythm, S1 normal heart sound, S2 normal heart sound, no murmurs, no ruband no gallops GI normal to inspection, nondistended, normoactive bowel sounds, soft to palpation,non-tender and non-distended Extremity normal to inspection General Extremity: clubbing; Negative for edema Skin no rashes or lesions noted Neuro oriented x3, CN's II-XII intact bilaterally, moves all extremities and no focal motor deficits Psych Activity / Motor Behavior: restless Mood & Affect: anxious Assessment & Plan Assessment/Plan (1) Elevated troponin I level: (2) Sepsis: (3) Aortocoronary bypass status: (4) Presence of stent in coronary artery: (5) PAD (peripheral artery disease): (6) Essential hypertension: (7) Hyperlipidemia: (8) Cardiomyopathy: PLAN: Plan * Pts troponin is elevated, this could be related to her hypoxia or it could be CAD related. At this time will not pursue a heart cath with her sepsis. Will monitor her t/o her hospital stay. If need be we can pursue on in Pt basis, but can consider this on OP basis. She did have a negative stress test in 2021. * Cardiomyopathy: EF has worsened. As mentioned above, would consider a heart cath on OP basis. Do not want to pursue as inpt with her sepsis. Will add low dose Entresto and SLT2 today. Will monitor VS. May consider Spirolactone based on VS. Will consider switching metoprolol to coreg. However will monitor VS with addition of medications today. . * Recommend repeating echo in 1-3 months post d/c to see if EF improved. If not will need to consider prophylactic ICD. Charges/Coding Visit Charges Inpatient E&M: 68631 Subs Hosp L2 02/08/23 1015 <Electronically signed by Lisa GARCÍA PA> Cosigner Signature (if applicable): CC: ~ Signed [facility] Work Phone: 1(694) 303-489212-26-2023 Progress note Author Juan Dupree [facility] February 08, 2023 9:21am Note Date/Time February 08, 2023 9:22am [facility] Medical Records Department [address] [place] [address] Progress Note - Hospitalist 02/08/23916 MR#: [id number] Acct: [id number] Name: JONELLE CORONADO Rep #:[id number] : 1955 67 From: Juan quintero MD PCP: HERSON Matthews Status:ADM IN Location: ICU CVICU20 1-1 Subjective Subjective Requires 10 L/min when not on BiPAP and still requires BiPAP at night Objective Data Objective Data Vital Signs: Vital Signs Temp Pulse Resp BP Pulse Ox O2 Del Method O2 Flow Rate 97.9 F 70 17 128/71 H 95 Nasal Cannula 10 02/08/23 04:00 02/08/23 07:20 02/08/23 07:20 02/08/23 07:00 02/08/23 07:20 02/08/23 07:00 02/08/23 07:00 FiO2 35 02/08/23 07:20 Oxygen Flow Rate (L/min) 10 Oxygen Delivery Method Nasal Cannula Weight: 127 lb 13.89 oz Body Mass Index (BMI) 23.3 Intake & Output: Intake and Output for Last 24 Hours 02/07/23 02/08/23 02/09/23 03:59 03:59 03:59 Intake Total 2078.33 / 2078.33 1348.3333 / 1348.3333 110 / 110 Output Total 4100 / 4100 950 / 950 50 / 50 Balance -2020. / - 398.3333 / 398.3333 60 / 60 Lab / Micro Data 02/08/23 05:55 02/08/23 05:55 Labs: Laboratory Results - last 24 hr 02/08/23 05:55: WBC 8.7, RBC 4.00 L, Hgb 12.1, Hct 37.6, MCV 94.0, MCH 30.3, MCHC 32.2, RDW Std Deviation 48.2 H, RDW Coeff of Nehemiah 14.0, Plt Count 182, MPV 10.4, Immature Gran % (Auto) 0.800, Neut % (Auto) 76.8 H, Lymph % (Auto) 15.2 L,[place] % (Auto) 4.2, Eos % (Auto) 2.4, Baso % (Auto) 0.6, Absolute Neuts (auto) 6.7, Absolute Lymphs (auto) 1.33, Nucleated RBC % 0, Differential Comment SCANNED, Reactive Lymphocytes 1+, Sodium 139, Potassium 4.2, Chloride 105, Carbon Dioxide 31.0, Anion Gap 3 L, BUN 22 H, Creatinine 0.62, Estim Creat ClearCalc 42.59, Est GFR (MDRD) Af Amer 123, Est GFR (MDRD) Non-Af 102, BUN/Creatinine Ratio 35.5 H, Glucose 147 H, Calcium 8.4 L Micro: Microbiology 02/04/23 04:07 Urine, Clean Catch Urine Culture - Final Escherichia coli Klebsiella pneumoniae sp pneum 02/06/23 20:28 Stool Stool Occult Blood (MILDRED) - Final 02/04/23 03:18 Blood Culture (Wb) - Left Hand Blood Culture - Preliminary No growth in 48 hours. 02/04/23 03:27 Blood Culture (Wb) - Anticubital Left Blood Culture - Preliminary No growth in 48 hours. Physical Exam Narrative General: Alert, Oriented x3, Cooperative, No apparent distress HEENT: Atraumatic, PERRLA, EOMI, Normocephalic Oral: Moist Mucosa Neck: Supple, No JVD Lungs: Diminished, Normal air movement, No rhonchi, wheeze, No rales Cardiovascular: Regular rate, Regular Rhythm, Normal S1, Normal S2, No murmurs Abdomen: Soft, Non Tender, Non-Distended, No Hepato-splenomegaly Extremities: No edema, Capillary Refill Less than 3 Seconds Skin: No rashes, No breakdown Musculoskeletal: No Tenderness to Palpation of Joints or Extremities Neurological: Cranial nerves II-XII grossly intact, Motor Exam 5/5 strength throughout, Sensory exam intact to light touch and pain Psych/Mental Status: Anxious Assessment & Plan Assessment/Plan (1) RSV bronchitis: (2) Secondary bacterial pneumonia: (3) COPD exacerbation: (4) Acute respiratory failure: QUALIFIERS: Respiratory failure complication: hypoxia and hypercapnia Qualified Code(s): J96.01 - Acute respiratory failure with hypoxia;J96.02 - Acute respiratory failure with hypercapnia (5) Elevated troponin I level: (6) Acute metabolic encephalopathy: PLAN: Plan 1. Acute combined respiratory failure secondary to RSV pneumonitis in the setting of COPD exacerbation/metabolic encephalopathy/tobacco abuse ? Continue with BiPAP ? She probably does have a history of COPD will continue with inhalers as well as steroids ? The encephalopathy appears to be resolved ? She does have a history of squamous cell lung cancer that treated however she continues to smoke 2. HTN/HLD/carotid stenosis/peripheral artery disease/elevated troponin/chronicsystolic CHF ? Echo with significant reduced EF to 10 to 15% and there is the possibility of a mobile mass on the mitral valve ? Continue with antibiotics if blood cultures do come back positive we will needto proceed with a EZ otherwise consulted cardiology and appreciate their recommendations ? We will continue with blood pressure medications and monitor make adjustments as necessary 3. GERD with history of GI bleed ? Continue with PPI ? Stable 4. Adrenal insufficiency ? Continue with hydrocortisone and Solu-Medrol 5. UTI ? Cultures pending, initial cultures show a pansensitive E. coli followed by a second gram-negative blanca ? Continue with antibiotics DVT: Therapeutic Lovenox Charges/Coding Visit Charges Inpatient E&M: 98781 Subs Hosp L2 02/08/23 0921 <Electronically signed by Juan Dupree MD> Cosigner Signature (if applicable): CC: ~ Signed [facility] Work Phone: 1(193) 902-903412-26-2023 Consult note Author Lisa Irizarry [facility] February 08, 2023 9:04am Note Date/Time February 04, 2023 1:17pm [facility] Medical Records Department [address] [facility] [place] [address] Consultation - Cardiology 02/04/23 1315 MR#: [id number] Acct: [id number] Name: JONELLE CORONADO Rep #:[id number] : 1955 67 From: Jazmine Smith MD PCP: HERSON Matthews Status:ADM IN Location: ICU CVICU20 1-1 <Statement entered by Jazmine Smith MD - 02/04/23 15:46> Pt seen & evaluated w/LIBIA. I personally interviewed & exam the pt. I was involved in all aspects of pt's orders, interpretation of results & treatment Assessment & Plan Assessment/Plan (1) Elevated troponin I level: (2) Sepsis: (3) Aortocoronary bypass status: (4) Presence of stent in coronary artery: (5) PAD (peripheral artery disease): (6) Essential hypertension: (7) Hyperlipidemia: (8) Cardiomyopathy: PLAN: Plan * Pts troponin is elevated, this could be related to her hypoxia or it could be CAD related. At this time will not pursue a heart cath with her sepsis. Will monitor her t/o her hospital stay. If need be we can pursue on in Pt basis, but can consider this on OP basis. She did have a negative stress test in 2021. * Cardiomyopathy: EF has worsened. As mentioned above, would consider a heart cath on OP basis. Do not want to pursue as inpt with her sepsis. Recommend maximizing medications. This will need to be based on BP readings. She is currently on Metoprolol, recommend switching this to Coreg. Based on VS recommend starting entresto, spirolactone and SGL2. This may need to be done on OP basis. * Recommend repeating echo in 1-3 months post d/c to see if EF improved. If not will need to consider prophylactic ICD. HPI Consult Data Date of Consult: 02/04/23 HPI Narrative HPI Narrative: JONELLE CORONADO, is a 67 F who presented to [facility] on 02/04/23 for increased SOB. She was diagnosed with RSV on 02/03/2023. She was admitted with Sepsis, Acute respiratory failure, UTI. She was admitted to ICU on Bipap. She did have an elevated DDimer. CTA was negative for PE. She was also noted to have an elevated troponin, this trended 128/2716. She was seen in our office last month. She does have history of CAD, PCI, CABG,ischemic mediated cardiomyopathy, cardiac dysrhythmia/torsade de pointes, peripheral artery disease, hyperlipidemia, and hypertension. In February 10, 2020 with acute arrest, torsades to points, non-STEMI, cardiogenic shock and ventricular tachycardia. Patient had a witnessed arrest and CPR was started. She did undergo an urgent catheterization where she had a PCI to her SVG to the OM 1. She was also noted to have a reduced ejection fraction of 40%. She had bypass surgery in 2013 where she had an KENNY to the LAD, SVG to the OM, SVG to the distal right. Echocardiogram in 02/2021 demonstrated and EF of 50%. Stress test 11/2021 was negative for ischemia. Preliminary echo today demonstrated a decrease in her EF. This demonstrated andEF of 10-15%. [facility] Medical History Adrenal insufficiency Anxiety Aspiration pneumonia Atherosclerotic heart disease of [place] coronary artery without angina pectoris Cardiac arrest Cardiogenic shock Cardiomyopathy Carotid stenosis Carotid stenosis, left Chronic obstructive pulmonary disease (COPD) Coronary artery disease Debility Essential hypertension Healthcare associated bacterial pneumonia History of GI bleed History of myocardial infarction Hyperlipidemia Hypokalemia Hypotension Left shoulder pain NSTEMI (non-ST elevated myocardial infarction) PAD (peripheral artery disease) Peripheral vascular insufficiency Squamous cell carcinoma of left lung STEMI (ST elevation myocardial infarction) Tobacco abuse Tobacco use Torsades de pointes Ventricular tachycardia Home Medications lorazepam 1 mg tablet (Ativan) 1 mg PO QHS 04/15/20 [History Last Taken Unknown] hydrocortisone 10 mg tablet 20 mg PO .COMPLEX adrenal insufficiency 02/04/21 [History Last Taken Unknown] diazepam 5 mg tablet 2.5 mg (1/2 x 5 mg) PO Q8 PRN Muscle Spasm #10 tabs 06/17/21 [Rx Last Taken Unknown] cilostazol 50 mg tablet 50 mg PO BID 12/18/21 [History Last Taken Unknown] lisinopril 2.5 mg tablet 2.5 mg PO DAILY #90 tabs 04/05/22 [Rx Last Taken Unknown] evolocumab 140 mg/mL subcutaneous pen injector (Repatha SureClick) 140 mg [id number] #2 mL 05/18/22 [Rx Last Taken Unknown] escitalopram oxalate 20 mg tablet (Lexapro) 20 mg PO DAILY 06/30/22 [History Last Taken Unknown] nitroglycerin 0.4 mg sublingual tablet 0.4 mg sublingual Q5-15M PRN chest pain #25 tabs 06/30/22 [Rx Last Taken Unknown] metoprolol tartrate 25 mg tablet 25 mg PO BID #180 tabs 07/14/22 [Rx Last Taken Unknown] ticagrelor 90 mg tablet 90 mg PO BID blood thinner #180 tabs 08/16/22 [Rx Last Taken Unknown] aspirin 81 mg tablet,delayed release (Adult Low Dose Aspirin) 81 mg PO DAILY 01/03/23 [History Last Taken Unknown] hydrocodone-homatropine 5 mg-1.5 mg/5 mL (5 mL) oral syrup (Hycodan) 5 ml PO Q6HPRN cough 5 days #50 mL 02/03/23 [Rx Last Taken Unknown] prednisone 20 mg tablet 40 mg (2 x 20 mg) PO DAILY 7 days #14 tabs 02/03/23 [Rx Last Taken Unknown] Allergy/AdvReac Type Severity Reaction Status Date / Time acetaminophen [From Vicodin] Allergy Intermediate Itching Verified 02/04/23 03:05 atorvastatin AdvReac Severe Myalgias Verified 02/04/23 03:05 hydrocodone AdvReac Itching Verified 02/04/23 03:05 hydrocodone bitartrate AdvReac Itching Verified 02/04/23 03:05 [From Vicodin] oxycodone HCl [From Percocet] AdvReac Itching Verified 02/04/23 03:05 Family History Mother Heart disease Hypertension CVA (cerebral vascular accident) Surgical History Aortocoronary bypass status (~09/24/13) Hx of appendectomy Hx of tubal ligation Presence of stent in coronary artery (~02/10/20) Social History Smoking Status: Current every day smoker tobacco type: cigarettes quit status: considering quitting alcohol intake: never substance use type: does not use caffeine: Yes what type of physical activity do you participate in: none frequency: does not exercise Physical Exam Const alert and oriented x3 Constitutional Narrative: Good BiPAP synchrony. Conversational dyspnea noted. General Appearance: cooperative HEENT normocephalic, head/scalp atraumatic and hearing grossly normal bilaterally HEENT Narrative: Oropharynx dry. Eyes PERRL, EOMs intact bilaterally and conjunctivae normal Neck no lymphadenopathy and supple Resp normal respiratory effort Effort and Inspection: prolonged expiratory phase Auscultation: wheezes; Negative for rales or rhonchi Cardio regular rhythm, S1 normal heart sound, S2 normal heart sound, no murmurs, no ruband no gallops Rate: tachycardic GI normal to inspection, nondistended, normoactive bowel sounds, soft to palpation,non-tender and non-distended Extremity normal to inspection General Extremity: clubbing; Negative for edema Skin no rashes or lesions noted Neuro oriented x3, CN's II-XII intact bilaterally, moves all extremities and no focal motor deficits Psych Activity / Motor Behavior: restless Mood & Affect: anxious Risk Stratification Risk Stratification Applicable: Yes Age >/= 65: Yes >/= 3 CAD Risk Factors (HTN, HLD, DM, family hx of CAD, or current smoker): Yes Aspirin Use in the Past 7 Days: Yes Severe Angina (>/= episodes in 24 hours): No EKG ST Changes >/= 0.5mm: No Positive Cardiac Marker: Yes LUANNE Risk Stratification Score: 4 LUANNE % Risk: 20% Risk Objective Data Vital Signs: Vital Signs Temp Pulse Resp BP Pulse Ox O2 Del Method O2 Flow Rate 100.2 F H 82 26 H 95/77 95 Bi-pap 12 02/04/23 13:00 02/04/23 13:00 02/04/23 13:00 02/04/23 13:00 02/04/23 13:00 02/04/23 13:00 02/04/23 03:03 FiO2 45 02/04/23 13:00 Oxygen Flow Rate (L/min) 12 Oxygen Delivery Method Bi-pap Weight: 125 lb 7.088 oz Body Mass Index (BMI) 22.9 Intake & Output: Intake and Output for Last 24 Hours 02/02/23 02/03/23 02/04/23 23:59 23:59 23:59 Intake Total 701.67 / 701.67 Output Total 250 / 250 Balance 451.67 / 451.67 Lab / Micro Data 02/04/23 03:04 02/04/23 03:04 Labs: Laboratory Results - last 24 hr 02/04/23 03:04: WBC 14.2 H, RBC 4.73, Hgb 14.4, Hct 45.9, MCV 97.0 D, MCH 30.4,MCHC 31.4 L D, RDW Std Deviation 51.1 H, RDW Coeff of Nehemiah 14.1, Plt Count 279, MPV 11.0, Immature Gran % (Auto) 0.600, Neut % (Auto) 60.2, Lymph % (Auto) 27.9,[place] % (Auto) 10.4 H, Eos % (Auto) 0.4, Baso % (Auto) 0.5, Absolute Neuts (auto)8.5 H, Absolute Lymphs (auto) 3.96, Nucleated RBC % 0, PT 13.7, INR 1.1, APTT 28.7, D-Dimer Quant (PE/DVT) 2.08 H*, Sodium 138, Potassium 4.3, Chloride 106, Carbon Dioxide 25.0, Anion Gap 7, BUN 8, Creatinine 1.06 H, Estim Creat Clear Calc 40.17, Est GFR (MDRD) Af Amer 66, Est GFR (MDRD) Non-Af 55 L, BUN/Creatinine Ratio 7.5 L, Glucose 236 H, Calcium 8.3 L, Troponin I High Sens 128 H* 02/04/23 03:18: Lactic Acid 1.6 02/04/23 04:07: Urine Color Yellow, Urine Clarity Clear, Urine pH 5.0, Ur Specific Quinter 1.025, Urine Protein 100 H, Urine Glucose (UA) Normal, Urine Ketones Negative, Urine Occult Blood 250 H, Urine Nitrite Negative, Urine Bilirubin Negative, Urine Urobilinogen Normal, Ur Leukocyte Esterase 100 H, Urine RBC 0-5 SEEN, Urine WBC 25-50 SEEN, Ur Squamous Epith Cells 10-25 SEEN, Urine Bacteria 3+, Urine Mucus 0 SEEN 02/04/23 06:34: Troponin I High Sens 2716 H* ABG Data ABG results: ABG 02/04/23 02/04/23 02/04/23 03:25 04:23 07:45 Specimen Type ART ART ART Sample Site R Radial L Radial R Radial pH 7.16 L* 7.22 L 7.32 L Bicarbonate Actual 25.5 25.2 22.5 Total CO2 28 27 24 Base Excess -3 L -3 L -4 L O2 Saturation 86 L 92 L 93 L O2 % 48.0 50.0 45.0 ABG pCO2 72.4 H* 62.0 H 43.6 ABG pO2 67 L 77 71 L Zhang Test Positive Positive Positive Respiration Rate 12 14 14 O2 Delivery Device BiPAP BiPAP BiPAP Vent Mode Not entered Not entered Not entered Tidal Volume 500.0 500.0 500.0 POC PEEP 12 12 Crit Call To/Read Back Yes Clinical Comments avaps Cardiology Labs/Tests 02/04/23 03:04: WBC 14.2 H, RBC 4.73, Hgb 14.4, Hct 45.9, MCV 97.0 D, MCH 30.4,MCHC 31.4 L D, Plt Count 279, MPV 11.0, Immature Gran % (Auto) 0.600, Neut % (Auto) 60.2, Lymph % (Auto) 27.9, [place] % (Auto) 10.4 H, Eos % (Auto) 0.4, Baso %(Auto) 0.5, Absolute Neuts (auto) 8.5 H, Nucleated RBC % 0, PT 13.7, INR 1.1, APTT 28.7, D- Dimer Quant (PE/DVT) 2.08 H*, Sodium 138, Potassium 4.3, Chloride 106, Carbon Dioxide 25.0, Anion Gap 7, BUN 8, Creatinine 1.06 H, Est GFR (MDRD) Af Amer 66, Est GFR (MDRD) Non-Af 55 L, BUN/Creatinine Ratio 7.5 L, Glucose 236 H, Calcium 8.3 L 02/04/23 03:18: Lactic Acid 1.6 02/04/23 03:25: pH 7.16 L*, Bicarbonate Actual 25.5, Base Excess -3 L, O2 Saturation 86 L, ABG pCO2 72.4 H*, ABG pO2 67 L, Zhang Test Positive 02/04/23 04:07: Urine Color Yellow, Urine Clarity Clear, Urine pH 5.0, Ur Specific Quinter 1.025, Urine Protein 100 H, Urine Glucose (UA) Normal, Urine Ketones Negative, Urine Occult Blood 250 H, Urine Nitrite Negative, Urine Bilirubin Negative, Urine Urobilinogen Normal, Ur Leukocyte Esterase 100 H, Urine RBC 0-5 SEEN, Urine WBC 25-50 SEEN 02/04/23 04:23: pH 7.22 L, Bicarbonate Actual 25.2, Base Excess -3 L, O2 Saturation 92 L, ABG pCO2 62.0 H, ABG pO2 77, Zhang Test Positive 02/04/23 07:45: pH 7.32 L, Bicarbonate Actual 22.5, Base Excess -4 L, O2 Saturation 93 L, ABG pCO2 43.6, ABG pO2 71 L, Zhang Test Positive Rhythm: SR with PAC's Radiography Diagnostic Testing: Radiology Impression Chest X-Ray 02/04/23 03:33 IMPRESSION: 1. Thickening of the interlobular septa likely due to interstitial edema which is new since the previous exam. 2. Slight right pleural effusion. Electronically Signed: Bakari Bledsoe MD at 3:49 EST , Chest CTA 02/04/23 04:19 IMPRESSION: 1. No pulmonary embolism or dissection. 2. Diffuse bronchial wall thickening bilaterally with scattered areas of mucus plugging bilaterally. 3. Spiculated pleural-based lesion measuring 1 cm left superior sulcus. Fleischner Society Guidelines recommend a follow-up chest CT in 6-12 months in patients with a low or high risk of malignancy. 4. Small foci of tree-in-bud nodular opacities in the apical posterior segment and the anterior segment of the left upper lobe may represent small foci of infection. 5. Emphysema. 6. Coronary artery disease. 7. Subsegmental atelectasis in the lingula. Electronically Signed: Bakari Bledsoe MD at 6:04 EST , 02/04/23 1546 <Electronically signed by Jazmine Smith MD> Cosigner Signature (if applicable): 02/08/23 0904 <Electronically signed by Lisa GARCÍA PA> CC: CLINICAL LAB CLERK-C Brigitte Chang; CLINICAL LAB CLERK-C Eduardo Bermudez; CLINICAL LAB CLERK-C Karime Roblero; CLINICAL LAB CLERK-C Patsy Stafford; Cruz Reynolds MD; Dr. Nina Wilson MD; Dr. Eunice Sharma MD; Dr. Cj Rain MD; Dr. Wyatt Wyatt MD; Dr. Braeden Nino MD; Dr. Prince Ortega DO; Dr. Loy Matthew DO; Dr. Rahul Curtis MD; Dr. Raheel Bradley MD; Dr. Jazmine Smith MD; Dr. Lori Willson MD; Dr. Bakari Tan MD; Dr. Kal Lopez MD; Dr. Montez Lara MD; Dr. Nicolette Bullock MD; Dr. Alexy John MD; Dr. Rene Solo MD; Dr. Rufus Arreola MD; Dr. Federico Al MD; Dr. Jovany Castro MD; Kairme Cota; RAQUEL Luis~ Signed [facility] Work Phone: 1(907) 300-877112-25-2023 Progress note Author Juan Dupree [facility] February 07, 2023 8:24am Note Date/Time February 07, 2023 8:25am [facility] Medical Records Department [address] [place] [id number] Progress Note - Hospitalist 02/07/23819 MR#: [id number] Acct: [id number] Name: JONELLE CORONADO Rep #:[id number] : 1955 67 From: Juan quintero MD PCP: HERSON Matthews Status:ADM IN Location: ICU CVICU20 1-1 Subjective Subjective Doing well, no issues overnight. Should be placed back on BiPAP for sleep Objective Data Objective Data Vital Signs: Vital Signs Temp Pulse Resp BP Pulse Ox O2 Del Method O2 Flow Rate 98.1 F 81 18 143/100 H 98 High Flow 10 02/07/23 07:00 02/07/23 07:25 02/07/23 07:25 02/07/23 07:00 02/07/23 07:55 02/07/23 07:55 02/07/23 07:55 FiO2 35 02/07/23 07:00 Oxygen Flow Rate (L/min) 10 Oxygen Delivery Method High Flow Weight: 131 lb 9.855 oz Body Mass Index (BMI) 24.0 Intake & Output: Intake and Output for Last 24 Hours 02/06/23 02/07/23 02/08/23 03:59 03:59 03:59 Intake Total 3240.00 / 3240.00 2078.33 / 2078.33 0 / 0 Output Total 240 / 240 4100 / 4100 200 / 200 Balance 3000.00 / 3000.00 -2021.67 / -2021.67 -200 / -200 Lab / Micro Data 02/07/23 03:35 02/07/23 03:35 Labs: Laboratory Results - last 24 hr 02/07/23 03:35: WBC 7.9, RBC 3.66 L, Hgb 11.1 L, Hct 34.7 L, MCV 94.8, MCH 30.3,MCHC 32.0, RDW Std Deviation 48.3 H, RDW Coeff of Nehemiah 13.9, Plt Count 161, MPV 10.4, Immature Gran % (Auto) 0.800, Neut % (Auto) 86.3 H, Lymph % (Auto) 8.9 L, [place] % (Auto) 3.7, Eos % (Auto) 0.0, Baso % (Auto) 0.3, Absolute Neuts (auto) 6.8, Absolute Lymphs (auto) 0.70 L, Nucleated RBC % 0, Reactive Lymphocytes RARE, Sodium 142, Potassium 3.6, Chloride 108 H, Carbon Dioxide 29.0, Anion Gap 5, BUN 21 H, Creatinine 0.53 L, Estim Creat Clear Calc 42.59, Est GFR (MDRD) Af Amer 147, Est GFR (MDRD) Non-Af 122, BUN/Creatinine Ratio 39.5 H, Glucose 126 H,Calcium 7.8 L, Phosphorus 2.0 L, Magnesium 2.1 Micro: Microbiology 02/06/23 20:28 Stool Stool Occult Blood (MILDRED) - Final 02/04/23 04:07 Urine, Clean Catch Urine Culture - Preliminary Escherichia coli 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 02/04/23 03:27 Blood Culture (Wb) - Anticubital Left Blood Culture - Preliminary No growth in 48 hours. Physical Exam Narrative General: Alert, Oriented x3, Cooperative, No apparent distress HEENT: Atraumatic, PERRLA, EOMI, Normocephalic Oral: Moist Mucosa Neck: Supple, No JVD Lungs: Diminished, Normal air movement, No rhonchi, wheeze, No rales Cardiovascular: Regular rate, Regular Rhythm, Normal S1, Normal S2, No murmurs Abdomen: Soft, Non Tender, Non-Distended, No Hepato-splenomegaly Extremities: No edema, Capillary Refill Less than 3 Seconds Skin: No rashes, No breakdown Musculoskeletal: No Tenderness to Palpation of Joints or Extremities Neurological: Cranial nerves II-XII grossly intact, Motor Exam 5/5 strength throughout, Sensory exam intact to light touch and pain Psych/Mental Status: Anxious Assessment & Plan Assessment/Plan (1) RSV bronchitis: (2) Secondary bacterial pneumonia: (3) COPD exacerbation: (4) Acute respiratory failure: QUALIFIERS: Respiratory failure complication: hypoxia and hypercapnia Qualified Code(s): J96.01 - Acute respiratory failure with hypoxia;J96.02 - Acute respiratory failure with hypercapnia (5) Elevated troponin I level: (6) Acute metabolic encephalopathy: PLAN: Plan 1. Acute combined respiratory failure secondary to RSV pneumonitis in the setting of COPD exacerbation/metabolic encephalopathy/tobacco abuse ? Continue with BiPAP ? She probably does have a history of COPD will continue with inhalers as well as steroids ? The encephalopathy appears to be improving ? She does have a history of stage IV lung cancer that treated however she continues to smoke 2. HTN/HLD/carotid stenosis/peripheral artery disease/elevated troponin/chronicsystolic CHF ? Echo with significant reduced EF to 10 to 15% and there is the possibility of a mobile mass on the mitral valve ? Continue with antibiotics if blood cultures do come back positive we will needto proceed with a EZ otherwise consulted cardiology and appreciate their recommendations ? We will continue with blood pressure medications and monitor make adjustments as necessary 3. GERD with history of GI bleed ? Continue with PPI ? Stable 4. Adrenal insufficiency ? Continue with hydrocortisone and Solu-Medrol 5. UTI ? Cultures pending, initial cultures show a pansensitive E. coli followed by a second gram-negative blanca ? Continue with antibiotics DVT: Therapeutic Lovenox Charges/Coding Visit Charges Inpatient E&M: 35829 Subs Hosp L2 02/07/23823 <Electronically signed by Juan Dupree MD> Cosigner Signature (if applicable): CC: ~ Signed [facility] Work Phone: 1(331) 760-894212-25-2023 Progress note Author Wyatt Wyatt [facility] February 07, 2023 6:15am Note Date/Time February 07, 2023 6:05am [facility] Medical Records Department [address] [place] [address] Progress Note - Duct Maker 02/07/23 06 MR#: [id number] Acct: [id number] Name: JONELLE CORONADO Rep #:[id number] : 1955 67 From: Wyatt Wyatt MD PCP: HERSON Matthews Status:ADM IN Location: ICU CVICU20 1-1 Assessment & Plan Assessment/Plan (1) Acute hypercapnic respiratory failure: (2) Urinary tract infection: (3) Sepsis: (4) RSV bronchitis: (5) Tobacco abuse: PLAN: Plan RECOMMENDATIONS: 1. Defer to cardiology on possible interventions 2. Keep steroids at current dose for now. Continue bronchodilators 3. BiPAP breaks as tolerated. Continue BiPAP with sleep. 4. Complete a 5-day course of antibiotics for UTI 5. Increase activity as tolerated 6. Wean oxygen as tolerated 7. Challenge with diuretic therapy IMPRESSIONS: 1. Acute combined respiratory failure secondary to RSV pneumonitis in the setting of probable COPD exacerbation Patient does have an extensive smoking history with stigmata consistent with COPD previously. Patient also has a history of squamous cell lung carcinoma that is in reported remission. Patient has responded well to BiPAP clinically. Will continue with BiPAP for now, but encourage better breaks during the day. Patient does state she would be willing to be intubated if necessary. Urine currently growing gram-negative, so will complete 5 days of antibiotics. 2. Elevated troponin Unclear etiology. Patient was tachycardic and does have an extensive cardiac history. However, patient was also severely hypoxic on presentation. Echocardiogram is showing severe depression of EF and possible mobile mass. Blood cultures are negative at this time. Cardiology has been consulted. Deferto cardiology, but will attempt to keep volume under control 3. Gram-negative UTI Patient does have significant bacteria and leukocyte esterase on UA. However, patient also has several squamous cells. Anticipate 5 days of antibiotics given patient has not been bacteremic or hypotensive. CT of the chest is consistent with a viral etiology 4. Metabolic encephalopathy secondary to hypercarbia secondary to problem #1 Resolved. Still very anxious, but this appears to be baseline. Patient appears to be improving significantly with BiPAP therapy. Continue with delirium protocol. Patient will be at risk given need for BiPAP and steroids for development of delirium moving forward. 5. History of GI bleed/adrenal insufficiency/osteoarthritis/peripheral vascular disease/continued smoking/lack of pulmonary care Complicates care, management, recovery and prognosis. Okay to continue hydrocortisone in addition to Solu-Medrol. Patient does have a history of SVT. Heart rate better controlled on metoprolol Subjective Subjective Patient did well overnight. Patient was able to stay off of BiPAP during the day yesterday, but was on 10 L/min to maintain saturations. Patient did use BiPAP with sleep. Patient has reported some diarrhea. This was tested overnight and found to be guaiac negative Objective Data Objective Data Vital Signs: Vital Signs Temp Pulse Resp BP Pulse Ox O2 Del Method O2 Flow Rate 37.3 C 78 16 106/63 96 Bi-pap 10 02/07/23 00:00 02/07/23 04:12 02/07/23 04:12 02/07/23 03:00 02/07/23 04:12 02/07/23 03:00 02/07/23 00:00 FiO2 35 02/07/23 04:12 Oxygen Flow Rate (L/min) 10 Oxygen Delivery Method Bi-pap Weight: 60.1 kg Body Mass Index (BMI) 24.3 Intake & Output: Intake and Output for Last 24 Hours 02/05/23 02/06/23 02/07/23 23:59 23:59 23:59 Intake Total 3240.00 / 3240.00 1978.33 / 1977.33 100 / 100 Output Total 240 / 240 2350 / 2350 1750 / 1750 Balance 3000.00 / 3000.00 -371.67 / -371.67 -1650 / -1650 Lab / Micro Data Attestation: I reviewed the patient's lab results. 02/07/23 03:35 02/07/23 03:35 Labs: Laboratory Results - last 24 hr 02/06/23 04:40: Differential Comment SCANNNED 02/07/23 03:35: WBC 7.9, RBC 3.66 L, Hgb 11.1 L, Hct 34.7 L, MCV 94.8, MCH 30.3,MCHC 32.0, RDW Std Deviation 48.3 H, RDW Coeff of Nehemiah 13.9, Plt Count 161, MPV 10.4, Immature Gran % (Auto) 0.800, Neut % (Auto) 86.3 H, Lymph % (Auto) 8.9 L, Cottonwood % (Auto) 3.7, Eos % (Auto) 0.0, Baso % (Auto) 0.3, Absolute Neuts (auto) 6.8, Absolute Lymphs (auto) 0.70 L, Nucleated RBC % 0, Sodium 142, Potassium 3.6, Chloride 108 H, Carbon Dioxide 29.0, Anion Gap 5, BUN 21 H, Creatinine 0.53L, Estim Creat Clear Calc 42.59, Est GFR (MDRD) Af Amer 147, Est GFR (MDRD) Non-Af 122, BUN/Creatinine Ratio 39.5 H, Glucose 126 H, Calcium 7.8 L, Phosphorus 2.0 L, Magnesium 2.1 Micro: Microbiology 02/06/23 20:28 Stool Stool Occult Blood (MILDRED) - Final 02/04/23 04:07 Urine, Clean Catch Urine Culture - Preliminary Escherichia coli 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 02/04/23 03:27 Blood Culture (Wb) - Anticubital Left Blood Culture - Preliminary No growth in 48 hours. Physical Exam Const alert and oriented x3 Constitutional Narrative: On BiPAP during my evaluation General Appearance: cooperative HEENT normocephalic, head/scalp atraumatic and hearing grossly normal bilaterally Eyes PERRL, EOMs intact bilaterally and conjunctivae normal Neck no lymphadenopathy and supple Resp normal respiratory effort Effort and Inspection: prolonged expiratory phase Auscultation: wheezes; Negative for rales or rhonchi Cardio regular rate, regular rhythm, S1 normal heart sound, S2 normal heart sound, no murmurs, no rub and no gallops Rate: tachycardic GI normal to inspection, nondistended, normoactive bowel sounds, soft to palpation,non-tender and non-distended Extremity normal to inspection General Extremity: clubbing; Negative for edema Skin no rashes or lesions noted Neuro oriented x3, CN's II-XII intact bilaterally, moves all extremities and no focal motor deficits Psych Activity / Motor Behavior: restless Mood & Affect: anxious Charges/Coding Visit Charges Inpatient E&M: 57311 Subs Hosp L3 02/07/23 0615 <Electronically signed by Wyatt Wyatt MD> Cosigner Signature (if applicable): CC: ~ Signed [facility] Work Phone: 1(451) 906-237012-24-2023 Progress note Author Wyatt Wyatt [facility] February 06, 2023 8:49am Note Date/Time February 06, 2023 7:17am [facility] Medical Records Department [address] [place] [address] Progress Note - Duct Maker 02/06/23712 MR#: [id number] Acct: [id number] Name: JONELLE CORONADO Rep #:[id number] : 1955 67 From: Wyatt Wyatt MD PCP: HERSON Matthews Status:ADM IN Location: ICU CVICU20 1-1 Assessment & Plan Assessment/Plan (1) Acute hypercapnic respiratory failure: (2) Urinary tract infection: (3) Sepsis: (4) RSV bronchitis: (5) Tobacco abuse: PLAN: Plan RECOMMENDATIONS: 1. Defer to cardiology on possible interventions 2. Wean steroids. Continue bronchodilators 3. BiPAP breaks as tolerated. Continue BiPAP with sleep. 4. Complete a 5-day course of antibiotics for UTI 5. Increase activity as tolerated 6. Wean oxygen as tolerated 7. Discontinue IV fluids. Initiate diet. IMPRESSIONS: 1. Acute combined respiratory failure secondary to RSV pneumonitis in the setting of probable COPD exacerbation Patient does have an extensive smoking history with stigmata consistent with COPD previously. Patient also has a history of squamous cell lung carcinoma that is in reported remission. Patient has responded well to BiPAP clinically. Will continue with BiPAP for now, but encourage better breaks during the day. Patient does state she would be willing to be intubated if necessary. Urine currently growing gram-negative, so will complete 5 days of antibiotics. Symptomatic control of fever will be helpful. Patient is in appropriate isolation. 2. Elevated troponin Unclear etiology. Patient was tachycardic and does have an extensive cardiac history. However, patient was also severely hypoxic on presentation. Echocardiogram is showing severe depression of EF and possible mobile mass. Blood cultures are negative at this time. Cardiology has been consulted. Patient is on a heparin drip for now. Await recommendations. Patient has not been significantly hypotensive 3. Gram-negative UTI Patient does have significant bacteria and leukocyte esterase on UA. However, patient also has several squamous cells. Anticipate 5 days of antibiotics given patient has not been bacteremic or hypotensive. CT of the chest is consistent with a viral etiology 4. Metabolic encephalopathy secondary to hypercarbia secondary to problem #1 Improving. Patient appears to be improving significantly with BiPAP therapy. Continue with delirium protocol. Patient will be at risk given need for BiPAP and steroids for development of delirium moving forward. Still with significant anxiety 5. History of GI bleed/adrenal insufficiency/osteoarthritis/peripheral vascular disease/continued smoking/lack of pulmonary care Complicates care, management, recovery and prognosis. Okay to continue hydrocortisone in addition to Solu-Medrol. Patient does have a history of SVT. Heart rate better controlled on metoprolol Subjective Subjective Patient did okay yesterday. Patient was able to come off of BiPAP for approximately 4 hours last evening, but slept overnight on BiPAP. Patient continues to have coughing episodes with desaturations. Patient states she is hungry. Objective Data Objective Data Vital Signs: Vital Signs Temp Pulse Resp BP Pulse Ox O2 Del Method O2 Flow Rate 37.3 C 90 24 H 137/71 H 90 High Flow 4 02/06/23 07:00 02/06/23 07:00 02/06/23 07:00 02/06/23 07:00 02/06/23 07:00 02/06/23 07:00 02/06/23 07:00 FiO2 35 02/06/23 06:00 Oxygen Flow Rate (L/min) 4 Oxygen Delivery Method High Flow Weight: 60.1 kg Body Mass Index (BMI) 24.3 Intake & Output: Intake and Output for Last 24 Hours 02/04/23 02/05/23 02/06/23 23:59 23:59 23:59 Intake Total 1575.00 / 1575.00 3240.00 / 3240.00 0 / 0 Output Total 700 / 700 240 / 240 300 / 300 Balance 875.00 / 875.00 3000.00 / 3000.00 -300 / -300 Lab / Micro Data Attestation: I reviewed the patient's lab results. 02/06/23 04:40 02/06/23 04:40 Labs: Laboratory Results - last 24 hr 02/06/23 04:40: WBC 9.7, RBC 3.64 L, Hgb 11.3 L, Hct 35.1 L, MCV 96.4, MCH 31.0,MCHC 32.2, RDW Std Deviation 50.7 H, RDW Coeff of Nehemiah 14.3, Plt Count 165, MPV 10.9, Immature Gran % (Auto) 0.900, Neut % (Auto) 87.2 H, Lymph % (Auto) 6.1 L, Cottonwood % (Auto) 5.7, Eos % (Auto) 0.0, Baso % (Auto) 0.1, Absolute Neuts (auto) 8.5 H, Absolute Lymphs (auto) 0.59 L, Nucleated RBC % 0, Differential Comment SCANNNED, Sodium 142, Potassium 4.5, Chloride 114 H, Carbon Dioxide 24.0, Anion Gap 4 L, BUN 20 H, Creatinine 0.47 L, Estim Creat Clear Calc 42.59, Est GFR (MDRD) Af Amer 169, Est GFR (MDRD) Non-Af 139, BUN/Creatinine Ratio 42.4 H, Glucose 109 H, Calcium 7.7 L, Total Bilirubin 0.40, AST 53 H, ALT 47, Alkaline Phosphatase 46, Total Protein 6.0 L, Albumin 2.4 L, Globulin 3.6, Albumin/Globulin Ratio 0.7 L Micro: Microbiology 02/04/23 03:18 Blood Culture (Wb) - Left Hand Blood Culture - Preliminary No growth in 48 hours. 02/04/23 03:27 Blood Culture (Wb) - Anticubital Left Blood Culture - Preliminary No growth in 48 hours. 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#2 Physical Exam Const alert and oriented x3 Constitutional Narrative: On nasal cannula during my evaluation General Appearance: cooperative HEENT normocephalic, head/scalp atraumatic and hearing grossly normal bilaterally Eyes PERRL, EOMs intact bilaterally and conjunctivae normal Neck no lymphadenopathy and supple Resp normal respiratory effort Effort and Inspection: prolonged expiratory phase Auscultation: wheezes; Negative for rales or rhonchi Cardio regular rhythm, S1 normal heart sound, S2 normal heart sound, no murmurs, no ruband no gallops Rate: tachycardic GI normal to inspection, nondistended, normoactive bowel sounds, soft to palpation,non-tender and non-distended Extremity normal to inspection General Extremity: clubbing; Negative for edema Skin no rashes or lesions noted Neuro oriented x3, CN's II-XII intact bilaterally, moves all extremities and no focal motor deficits Psych Activity / Motor Behavior: restless Mood & Affect: anxious Charges/Coding Visit Charges Inpatient E&M: 29693 Subs Hosp L3 02/06/23 0849 <Electronically signed by Wyatt Wyatt MD> Cosigner Signature (if applicable): CC: ~ Signed [facility] Work Phone: [phone]) 370-936312-24-2023 Progress note Author Juan Dupree [facility] February 06, 2023 8:24am Note Date/Time February 06, 2023 8:24am [facility] Medical Records Department [address] [place] [address] Progress Note - Hospitalist 02/06/23821 MR#: [id number] Acct: [id number] Name: JONELLE CORONADO DIANNE Rep #:[id number] : 1955 67 From: Juan quintero MD PCP: Patsy Stafford CLINICAL LAB CLERK-Janell Status:ADM IN Location: ICU CVICU20 1-1 Subjective Subjective Intermittently off the BiPAP however still requiring 10 L of oxygen. She is about 3 L positive so remaining solution discontinued by the orchard worker and will decrease her steroids Objective Data Objective Data Vital Signs: Vital Signs Temp Pulse Resp BP Pulse Ox O2 Del Method O2 Flow Rate 97.5 F L 112 H 29 H 145/75 H 95 High Flow 10 02/06/23 08:00 02/06/23 08:00 02/06/23 08:00 02/06/23 08:00 02/06/23 08:00 02/06/23 08:00 02/06/23 08:00 FiO2 35 02/06/23 06:00 Oxygen Flow Rate (L/min) 10 Oxygen Delivery Method High Flow Weight: 132 lb 7.965 oz Body Mass Index (BMI) 24.3 Intake & Output: Intake and Output for Last 24 Hours 02/05/23 02/06/23 02/07/23 03:59 03:59 03:59 Intake Total 1575.00 / 1575.00 3240.00 / 3240.00 763.33 / 763.33 Output Total 700 / 700 240 / 240 300 / 300 Balance 875.00 / 875.00 3000.00 / 3000.00 463.33 / 463.33 Lab / Micro Data 02/06/23 04:40 02/06/23 04:40 Labs: Laboratory Results - last 24 hr 02/06/23 04:40: WBC 9.7, RBC 3.64 L, Hgb 11.3 L, Hct 35.1 L, MCV 96.4, MCH 31.0,MCHC 32.2, RDW Std Deviation 50.7 H, RDW Coeff of Nehemiah 14.3, Plt Count 165, MPV 10.9, Immature Gran % (Auto) 0.900, Neut % (Auto) 87.2 H, Lymph % (Auto) 6.1 L, Cottonwood % (Auto) 5.7, Eos % (Auto) 0.0, Baso % (Auto) 0.1, Absolute Neuts (auto) 8.5 H, Absolute Lymphs (auto) 0.59 L, Nucleated RBC % 0, Differential Comment SCANNNED, Sodium 142, Potassium 4.5, Chloride 114 H, Carbon Dioxide 24.0, Anion Gap 4 L, BUN 20 H, Creatinine 0.47 L, Estim Creat Clear Calc 42.59, Est GFR (MDRD) Af Amer 169, Est GFR (MDRD) Non-Af 139, BUN/Creatinine Ratio 42.4 H, Glucose 109 H, Calcium 7.7 L, Total Bilirubin 0.40, AST 53 H, ALT 47, Alkaline Phosphatase 46, Total Protein 6.0 L, Albumin 2.4 L, Globulin 3.6, Albumin/Globulin Ratio 0.7 L Micro: Microbiology 02/04/23 04:07 Urine, Clean Catch Urine Culture - Preliminary Escherichia coli 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 02/04/23 03:27 Blood Culture (Wb) - Anticubital Left Blood Culture - Preliminary No growth in 48 hours. Physical Exam Narrative General: Alert, Oriented x3, Cooperative, No apparent distress HEENT: Atraumatic, PERRLA, EOMI, Normocephalic Oral: Moist Mucosa Neck: Supple, No JVD Lungs: Diminished, Normal air movement, No rhonchi, wheeze, No rales Cardiovascular: Tachycardic, Regular Rhythm, Normal S1, Normal S2, No murmurs Abdomen: Soft, Non Tender, Non-Distended, No Hepato-splenomegaly Extremities: No edema, Capillary Refill Less than 3 Seconds Skin: No rashes, No breakdown Musculoskeletal: No Tenderness to Palpation of Joints or Extremities Neurological: Cranial nerves II-XII grossly intact, Motor Exam 5/5 strength throughout, Sensory exam intact to light touch and pain Psych/Mental Status: Anxious Assessment & Plan Assessment/Plan (1) RSV bronchitis: (2) Secondary bacterial pneumonia: (3) COPD exacerbation: (4) Acute respiratory failure: QUALIFIERS: Respiratory failure complication: hypoxia and hypercapnia Qualified Code(s): J96.01 - Acute respiratory failure with hypoxia;J96.02 - Acute respiratory failure with hypercapnia (5) Elevated troponin I level: (6) Acute metabolic encephalopathy: PLAN: Plan 1. Acute combined respiratory failure secondary to RSV pneumonitis in the setting of COPD exacerbation/metabolic encephalopathy/tobacco abuse ? Continue with BiPAP ? Continue antibiotics until cultures finalize ? She probably does have a history of COPD will continue with inhalers as well as steroids ? The encephalopathy appears to be improving ? She does have a history of stage IV lung cancer that treated however she continues to smoke 2. HTN/HLD/carotid stenosis/peripheral artery disease/elevated troponin/chronicsystolic CHF ? Echo with significant reduced EF to 10 to 15% and there is the possibility of a mobile mass on the mitral valve ? Continue with antibiotics if blood cultures do come back positive we will needto proceed with a EZ otherwise consulted cardiology and appreciate their recommendations ? ? We will continue with blood pressure medications and monitor make adjustments as necessary 3. GERD with history of GI bleed ? Continue with PPI ? Stable 4. Adrenal insufficiency ? Continue with hydrocortisone and Solu-Medrol DVT: Therapeutic Lovenox Charges/Coding Visit Charges Inpatient E&M: 58319 Subs Hosp L2 02/06/23823 <Electronically signed by Juan Dupree MD> Cosigner Signature (if applicable): CC: ~ Signed [facility] Work Phone: 1(727) 663-444212-23-2023 Progress note Author Juan Dupree [facility] February 05, 2023 9:08am Note Date/Time February 05, 2023 9:08am [facility] Medical Records Department [address] [place] [address] Progress Note - Hospitalist 02/05/23902 MR#: [id number] Acct: [id number] Name: JONELLE CORONADO Rep #:[id number] : 1955 67 From: Juan quintero MD PCP: HERSON Matthews Status:ADM IN Location: ICU CVICU20 1-1 Subjective Subjective Maintaining her saturations on BiPAP, no new issues overnight Objective Data Objective Data Vital Signs: Vital Signs Temp Pulse Resp BP Pulse Ox O2 Del Method O2 Flow Rate 100.2 F H 92 22 H 117/77 94 Bi-pap 10 02/05/23 08:00 02/05/23 09:00 02/05/23 09:00 02/05/23 09:00 02/05/23 09:00 02/05/23 09:00 02/05/23 06:25 FiO2 35 02/05/23 09:00 Oxygen Flow Rate (L/min) 10 Oxygen Delivery Method Bi-pap Weight: 128 lb 15.527 oz Body Mass Index (BMI) 23.7 Intake & Output: Intake and Output for Last 24 Hours 02/04/23 02/05/23 02/06/23 03:59 03:59 03:59 Intake Total 1575.00 / 1575.00 1053.33 / 1053.33 Output Total 700 / 700 140 / 140 Balance 875.00 / 875.00 913.33 / 913.33 Lab / Micro Data 02/05/23 03:40 02/05/23 03:40 Labs: Laboratory Results - last 24 hr 02/05/23 03:40: WBC 9.1, RBC 3.76 L, Hgb 11.7 L, Hct 36.5 L, MCV 97.1, MCH 31.1,MCHC 32.1, RDW Std Deviation 51.1 H, RDW Coeff of Nehemiah 14.3, Plt Count 149 L, MPV10.3, Immature Gran % (Auto) 0.700, Neut % (Auto) 86.7 H, Lymph % (Auto) 7.1 L, [place] % (Auto) 5.4, Eos % (Auto) 0.0, Baso % (Auto) 0.1, Absolute Neuts (auto) 7.9 H, Absolute Lymphs (auto) 0.64 L, Nucleated RBC % 0, Sodium 143, Potassium 4.0, Chloride 114 H, Carbon Dioxide 24.0, Anion Gap 5, BUN 19 H, Creatinine 0.80, Estim Creat Clear Calc 53.23, Est GFR (MDRD) Af Amer 91, Est GFR (MDRD) Non-Af 76, BUN/Creatinine Ratio 23.7 H, Glucose 129 H, Calcium 7.2 L, Phosphorus2.8, Magnesium 1.9, Total Bilirubin 0.30, AST 47 H, ALT 37, Alkaline [id number], Total Protein 6.0 L, Albumin 2.6 L, Globulin 3.4, Albumin/Globulin Ratio 0.8L, TSH 0.41 Radiography Diagnostic Testing: Radiology Impression Echocardiogram 02/04/23 06:28 Interpretation Summary The estimated ejection fraction is 10-15 %. Severe global left ventricular systolic dysfunction. Severe segmental systolic dysfunction (see wall motion). Mild (1+) mitral valve insufficiency. Mild to moderate (1-2+) tricuspid valve insufficiency. Mild diffuse aortic valve thickening. Compared to previous echo, the LV systolic function has worsened drastically. Cannot exclude mobile mass on posterior medial mitral valve papilary/chordea. Recommend EZ if clinically indicated. The study was technically difficult. Contrast injection was performed. Ordering Physician: Prince Ortega Referring Physician: PATSY STAFFORD Performed By: Mita Buckner RDCS Physical Exam Narrative General: Alert, Oriented x3, Cooperative, No apparent distress HEENT: Atraumatic, PERRLA, EOMI, Normocephalic Oral: Moist Mucosa Neck: Supple, No JVD Lungs: Diminished, Normal air movement, No rhonchi, wheeze, No rales Cardiovascular: Tachycardic, Regular Rhythm, Normal S1, Normal S2, No murmurs Abdomen: Soft, Non Tender, Non-Distended, No Hepato-splenomegaly Extremities: No edema, Capillary Refill Less than 3 Seconds Skin: No rashes, No breakdown Musculoskeletal: No Tenderness to Palpation of Joints or Extremities Neurological: Cranial nerves II-XII grossly intact, Motor Exam 5/5 strength throughout, Sensory exam intact to light touch and pain Psych/Mental Status: Anxious Assessment & Plan Assessment/Plan (1) RSV bronchitis: (2) Secondary bacterial pneumonia: (3) COPD exacerbation: (4) Acute respiratory failure: QUALIFIERS: Respiratory failure complication: hypoxia and hypercapnia Qualified Code(s): J96.01 - Acute respiratory failure with hypoxia;J96.02 - Acute respiratory failure with hypercapnia (5) Elevated troponin I level: (6) Acute metabolic encephalopathy: PLAN: Plan 1. Acute combined respiratory failure secondary to RSV pneumonitis in the setting of COPD exacerbation/metabolic encephalopathy/tobacco abuse ? Continue with BiPAP ? Continue antibiotics until cultures finalize ? She probably does have a history of COPD will continue with inhalers as well as steroids ? The encephalopathy appears to be improving ? She does have a history of stage IV lung cancer that treated however she continues to smoke 2. HTN/HLD/carotid stenosis/peripheral artery disease/elevated troponin/chronicsystolic CHF ? Echo with significant reduced EF to 10 to 15% and there is the possibility of a mobile mass on the mitral valve ? Continue with antibiotics if blood cultures do come back positive we will needto proceed with a EZ otherwise consulted cardiology and appreciate their recommendations ? ? We will continue with blood pressure medications and monitor make adjustments as necessary 3. GERD with history of GI bleed ? Continue with PPI ? Stable 4. Adrenal insufficiency ? Continue with hydrocortisone and Solu-Medrol DVT: Therapeutic Lovenox Charges/Coding Visit Charges Inpatient E&M: 64109 Subs Hosp L2 02/05/23 0908 <Electronically signed by Juan Dupree MD> Cosigner Signature (if applicable): CC: ~ Signed [facility] Work Phone: 1(614) 203-552112-23-2023 Progress note Author Wyatt Wyatt [facility] February 05, 2023 8:03am Note Date/Time February 05, 2023 6:46am [facility] Medical Records Department [address] [place] [id number] Progress Note - Duct Maker 02/05/23 0641 MR#: [id number] Acct: [id number] Name: JONELLE CORONADO Rep #:[id number] : 1955 67 From: Wyatt Wyatt MD PCP: HERSON Matthews Status:ADM IN Location: ICU CVICU20 1-1 Assessment & Plan Assessment/Plan (1) Acute hypercapnic respiratory failure: (2) Urinary tract infection: (3) Sepsis: (4) RSV bronchitis: (5) Tobacco abuse: PLAN: Plan RECOMMENDATIONS: 1. Defer to cardiology on possible interventions 2. Continue steroids, bronchodilators 3. BiPAP breaks as tolerated. Continue BiPAP with sleep. 4. Discontinue antibiotics of urine culture negative 5. Increase activity as tolerated 6. Wean oxygen as tolerated IMPRESSIONS: 1. Acute combined respiratory failure secondary to RSV pneumonitis in the setting of probable COPD exacerbation Patient does have an extensive smoking history with stigmata consistent with COPD previously. Patient also has a history of squamous cell lung carcinoma that is in reported remission. Patient has responded well to BiPAP clinically. Will continue with BiPAP for now. Patient does state she would be willing to be intubated if necessary. Will continue broad-spectrum antibiotics for now, but if culture negative, likely discontinue antibiotics at 48 hours. Symptomatic control of fever will be helpful. Patient is in appropriate isolation. 2. Elevated troponin Unclear etiology. Patient was tachycardic and does have an extensive cardiac history. However, patient was also severely hypoxic on presentation. Echocardiogram is showing severe depression of EF and possible mobile mass. Cardiology has been consulted. Patient is on a heparin drip for now. Await recommendations. If blood cultures are positive, patient may need a EZ. Patient has not been significantly hypotensive 3. Possible UTI Patient does have significant bacteria and leukocyte esterase on UA. However, patient also has several squamous cells. If cultures are negative, ceftriaxone can likely be discontinued. CT of the chest is consistent with a viral etiology 4. Metabolic encephalopathy secondary to hypercarbia secondary to problem #1 Patient appears to be improving significantly with BiPAP therapy. Continue with delirium protocol. Patient will be at risk given need for BiPAP and steroids for development of delirium moving forward. 5. History of GI bleed/adrenal insufficiency/osteoarthritis/peripheral vascular disease/continued smoking/lack of pulmonary care Complicates care, management, recovery and prognosis. Okay to continue hydrocortisone in addition to Solu-Medrol. Patient does have a history of SVT. Heart rate better controlled on metoprolol Subjective Subjective Patient did okay overnight. Patient has been on BiPAP for most of the evening with only short breaks. Patient continues to have cough. Patient states that she gets [place] care in [place]. Patient does have a long cardiac history, but is not aware of her previous EF. Objective Data Objective Data Echocardiogram shows significant decrease in EF and a possible mobile mass. Vital Signs: Vital Signs Temp Pulse Resp BP Pulse Ox O2 Del Method O2 Flow Rate 37.8 C H 96 27 H 117/72 92 Nasal Cannula 10 02/05/23 06:00 02/05/23 06:37 02/05/23 06:37 02/05/23 06:00 02/05/23 06:37 02/05/23 06:25 02/05/23 06:25 FiO2 35 02/05/23 06:37 Oxygen Flow Rate (L/min) 10 Oxygen Delivery Method Nasal Cannula Weight: 58.5 kg Body Mass Index (BMI) 23.7 Intake & Output: Intake and Output for Last 24 Hours 02/03/23 02/04/23 02/05/23 23:59 23:59 23:59 Intake Total 1575.00 / 1575.00 943.33 / 943.33 Output Total 700 / 700 140 / 140 Balance 875.00 / 875.00 803.33 / 803.33 Lab / Micro Data Attestation: I reviewed the patient's lab results. 02/05/23 03:40 02/05/23 03:40 Labs: Laboratory Results - last 24 hr 02/04/23 06:34: Troponin I High Sens 2716 H* 02/05/23 03:40: WBC 9.1, RBC 3.76 L, Hgb 11.7 L, Hct 36.5 L, MCV 97.1, MCH 31.1,MCHC 32.1, RDW Std Deviation 51.1 H, RDW Coeff of Nehemiah 14.3, Plt Count 149 L, MPV10.3, Immature Gran % (Auto) 0.700, Neut % (Auto) 86.7 H, Lymph % (Auto) 7.1 L, [place] % (Auto) 5.4, Eos % (Auto) 0.0, Baso % (Auto) 0.1, Absolute Neuts (auto) 7.9 H, Absolute Lymphs (auto) 0.64 L, Nucleated RBC % 0, Sodium 143, Potassium 4.0, Chloride 114 H, Carbon Dioxide 24.0, Anion Gap 5, BUN 19 H, Creatinine 0.80, Estim Creat Clear Calc 53.23, Est GFR (MDRD) Af Amer 91, Est GFR (MDRD) Non-Af 76, BUN/Creatinine Ratio 23.7 H, Glucose 129 H, Calcium 7.2 L, Phosphorus2.8, Magnesium 1.9, Total Bilirubin 0.30, AST 47 H, ALT 37, Alkaline Isdsamcnwve47, Total Protein 6.0 L, Albumin 2.6 L, Globulin 3.4, Albumin/Globulin Ratio 0.8L, TSH 0.41 ABG Data ABG results: ABG 02/04/23 07:45 Specimen Type ART Sample Site R Radial pH 7.32 L Bicarbonate Actual 22.5 Total CO2 24 Base Excess -4 L O2 Saturation 93 L O2 % 45.0 ABG pCO2 43.6 ABG pO2 71 L Zhang Test Positive Respiration Rate 14 O2 Delivery Device BiPAP Vent Mode Not entered Tidal Volume 500.0 POC PEEP 12 Clinical Comments avaps Radiography Diagnostic Testing: Radiology Impression Echocardiogram 02/04/23 06:28 Interpretation Summary The estimated ejection fraction is 10-15 %. Severe global left ventricular systolic dysfunction. Severe segmental systolic dysfunction (see wall motion). Mild (1+) mitral valve insufficiency. Mild to moderate (1-2+) tricuspid valve insufficiency. Mild diffuse aortic valve thickening. Compared to previous echo, the LV systolic function has worsened drastically. Cannot exclude mobile mass on posterior medial mitral valve papilary/chordea. Recommend EZ if clinically indicated. The study was technically difficult. Contrast injection was performed. Ordering Physician: Prince Ortega Referring Physician: PATSY STAFFORD Performed By: Mita Buckner RDCS Physical Exam Const alert and oriented x3 Constitutional Narrative: Good BiPAP synchrony. Conversational dyspnea noted. Slightly better conversational status off BiPAP today than yesterday General Appearance: cooperative HEENT normocephalic, head/scalp atraumatic and hearing grossly normal bilaterally Eyes PERRL, EOMs intact bilaterally and conjunctivae normal Neck no lymphadenopathy and supple Resp normal respiratory effort Effort and Inspection: prolonged expiratory phase Auscultation: wheezes; Negative for rales or rhonchi Cardio regular rhythm, S1 normal heart sound, S2 normal heart sound, no murmurs, no ruband no gallops Rate: tachycardic GI normal to inspection, nondistended, normoactive bowel sounds, soft to palpation,non-tender and non-distended Extremity normal to inspection General Extremity: clubbing; Negative for edema Skin no rashes or lesions noted Neuro oriented x3, CN's II-XII intact bilaterally, moves all extremities and no focal motor deficits Psych Activity / Motor Behavior: restless Mood & Affect: anxious Charges/Coding Visit Charges Inpatient E&M: 88558 Subs Hosp L3 02/05/23 0803 <Electronically signed by Wyatt Wyatt MD> Cosigner Signature (if applicable): CC: ~ Signed [facility] Work Phone: 1(311) 686-949212-22-2023 Consult note Author Wyatt Wyatt [facility] February 04, 2023 3:05pm Note Date/Time February 04, 2023 10:59am [facility] Medical Records Department [address] [facility] [place] [address] Consultation - Duct Maker 02/04/23 1053 MR#: [id number] Acct: [id number] Name: JONELLE CORONADO Rep #:[id number] : 1955 67 From: Wyatt Wyatt MD PCP: HERSON Matthews Status:ADM IN Location: ICU CVICU20 1-1 Assessment & Plan Assessment/Plan (1) Acute hypercapnic respiratory failure: (2) Urinary tract infection: (3) Sepsis: (4) RSV bronchitis: (5) Tobacco abuse: PLAN: Plan RECOMMENDATIONS: 1. Reinitiate hydrocortisone 2. Continue steroids, bronchodilators 3. Only short BiPAP breaks for now 4. Discontinue antibiotics of urine culture negative 5. Okay to reinitiate beta-nakul 6. Wean oxygen as tolerated IMPRESSIONS: 1. Acute combined respiratory failure secondary to RSV pneumonitis in the setting of probable COPD exacerbation Patient does have an extensive smoking history with stigmata consistent with COPD previously. Patient also has a history of squamous cell lung carcinoma that is in reported remission. Patient has responded well to BiPAP clinically. Will continue with BiPAP for now. Patient does state she would be willing to be intubated if necessary. Will continue broad-spectrum antibiotics for now, but if culture negative, likely discontinue antibiotics at 48 hours. Symptomatic control of fever will be helpful. Patient is in appropriate isolation. 2. Elevated troponin Unclear etiology. Patient was tachycardic and does have an extensive cardiac history. However, patient was also severely hypoxic on presentation. Patient does have an echocardiogram ordered. Cardiology has been consulted. Patient is on a heparin drip for now. Await recommendations. 3. Possible UTI Patient does have significant bacteria and leukocyte esterase on UA. However, patient also has several squamous cells. If cultures are negative, ceftriaxone can likely be discontinued. CT of the chest is consistent with a viraletiology 4. Metabolic encephalopathy secondary to hypercarbia secondary to problem #1 Patient appears to be improving significantly with BiPAP therapy. Continue with delirium protocol. Patient will be at risk given need for BiPAP and steroids for development of delirium moving forward. 5. History of GI bleed/adrenal insufficiency/osteoarthritis/peripheral vascular disease/continued smoking/lack of pulmonary care Complicates care, management, recovery and prognosis. Okay to reinitiate hydrocortisone in addition to Solu-Medrol. Patient does have a history of SVT. Clinical suspicion is current SVT is secondary to acute status, but patient is not hypotensive so metoprolol can be continued for now. HPI Consult Data Date of Consult: 02/04/23 HPI Narrative HPI Narrative: JONELLE CORONADO is a 67 F, with past medical history listed below, who presents to [facility] on 02/04/2023 secondary to progressive shortness of breath. Patient had been seen on the day prior in the ER and diagnosed with RSV. Patient was able to be discharged on home oxygen with aerosols. Patient was also started on prednisone. Patient reportedly had progressed overnight andcalled EMS. Patient was not conversational at that time and brought to the ER for evaluation. On arrival to the emergency room, patient was afebrile, but tachycardic at 124 bpm. Patient was normotensive, but requiring BiPAP at 50% to maintain saturations. Patient's laboratory workup showed a white blood cell count of 14.2, hemoglobin of 14.4 and platelets of 279. Coagulation studies were within normal limits, but D- dimer was elevated 2.08. Chemistry showed an elevated bicarbonate of 25, creatinine of 1.06 and a lactate of 1.6. Patient's troponin was slightly elevated at 128. Patient did have a UA showing leukocyte Estrace and occult blood along with bacteria, but some squamous were noted. Initial ABGshowed a combined metabolic and respiratory acidosis with increased AA gradient. Patient was placed on BiPAP with some improvement. Chest x-ray showed an interstitial pattern. CTA of the chest showed no PE or dissection, but diffuse bronchial thickening with scattered areas of mucous plugging, tree-in-bud opacities and a spiculated pleural-based nodule in the sulcus. Patient was placedon BiPAP and given DuoNebs. Patient did start to respond. Patient was placed on azithromycin and Rocephin and admitted to the intensive care unit secondary to concerns for her respiratory status. Since being in the intensive care unit, patient has relatively stabilized on BiPAP. Patient currently on AVAPS with a targeted tidal volume of 500. Patientdoes get very short of breath shortly after removal of BiPAP. Patient states that she has continued to smoke. 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 Patient assumes that she has COPD, but has not been tested that she is aware of. Patient denies any trauma. Patient is unaware of any sick contacts. Patient denies any chest pain or palpitations at this time. Review of systems otherwise negative from a constitutional, HEENT, respiratory, cardiovascular, GI, genitourinary, musculoskeletal, skin, neurologic, psychiatric and hematologic system unless stated above. [facility] Medical History Adrenal insufficiency Anxiety Aspiration pneumonia Atherosclerotic heart disease of [place] coronary artery without angina pectoris Cardiac arrest Cardiogenic shock Cardiomyopathy Carotid stenosis Carotid stenosis, left Chronic obstructive pulmonary disease (COPD) Coronary artery disease Debility Essential hypertension Healthcare associated bacterial pneumonia History of GI bleed History of myocardial infarction Hyperlipidemia Hypokalemia Hypotension Left shoulder pain NSTEMI (non-ST elevated myocardial infarction) PAD (peripheral artery disease) Peripheral vascular insufficiency Squamous cell carcinoma of left lung STEMI (ST elevation myocardial infarction) Tobacco abuse Tobacco use Torsades de pointes Ventricular tachycardia Home Medications lorazepam 1 mg tablet (Ativan) 1 mg PO QHS 04/15/20 [History Last Taken Unknown] hydrocortisone 10 mg tablet 20 mg PO .COMPLEX adrenal insufficiency 02/04/21 [History Last Taken Unknown] diazepam 5 mg tablet 2.5 mg (1/2 x 5 mg) PO Q8 PRN Muscle Spasm #10 tabs 06/17/21 [Rx Last Taken Unknown] cilostazol 50 mg tablet 50 mg PO BID 12/18/21 [History Last Taken Unknown] lisinopril 2.5 mg tablet 2.5 mg PO DAILY #90 tabs 04/05/22 [Rx Last Taken Unknown] evolocumab 140 mg/mL subcutaneous pen injector (Repatha SureClick) 140 mg [id number] #2 mL 05/18/22 [Rx Last Taken Unknown] escitalopram oxalate 20 mg tablet (Lexapro) 20 mg PO DAILY 06/30/22 [History Last Taken Unknown] nitroglycerin 0.4 mg sublingual tablet 0.4 mg sublingual Q5-15M PRN chest pain #25 tabs 06/30/22 [Rx Last Taken Unknown] metoprolol tartrate 25 mg tablet 25 mg PO BID #180 tabs 07/14/22 [Rx Last Taken Unknown] ticagrelor 90 mg tablet 90 mg PO BID blood thinner #180 tabs 08/16/22 [Rx Last Taken Unknown] aspirin 81 mg tablet,delayed release (Adult Low Dose Aspirin) 81 mg PO DAILY 01/03/23 [History Last Taken Unknown] hydrocodone-homatropine 5 mg-1.5 mg/5 mL (5 mL) oral syrup (Hycodan) 5 ml PO Q6HPRN cough 5 days #50 mL 02/03/23 [Rx Last Taken Unknown] prednisone 20 mg tablet 40 mg (2 x 20 mg) PO DAILY 7 days #14 tabs 02/03/23 [Rx Last Taken Unknown] Allergy/AdvReac Type Severity Reaction Status Date / Time acetaminophen [From Vicodin] Allergy Intermediate Itching Verified 02/04/23 03:05 atorvastatin AdvReac Severe Myalgias Verified 02/04/23 03:05 hydrocodone AdvReac Itching Verified 02/04/23 03:05 hydrocodone bitartrate AdvReac Itching Verified 02/04/23 03:05 [From Vicodin] oxycodone HCl [From Percocet] AdvReac Itching Verified 02/04/23 03:05 Family History Mother Heart disease Hypertension CVA (cerebral vascular accident) Surgical History Aortocoronary bypass status (~09/24/13) Hx of appendectomy Hx of tubal ligation Presence of stent in coronary artery (~02/10/20) Social History Smoking Status: Current every day smoker tobacco type: cigarettes quit status: considering quitting alcohol intake: never substance use type: does not use caffeine: Yes what type of physical activity do you participate in: none frequency: does not exercise ROS ROS Narrative See HPI Physical Exam Const alert and oriented x3 Constitutional Narrative: Good BiPAP synchrony. Conversational dyspnea noted. General Appearance: cooperative HEENT normocephalic, head/scalp atraumatic and hearing grossly normal bilaterally HEENT Narrative: Oropharynx dry. Eyes PERRL, EOMs intact bilaterally and conjunctivae normal Neck no lymphadenopathy and supple Resp normal respiratory effort Effort and Inspection: prolonged expiratory phase Auscultation: wheezes; Negative for rales or rhonchi Cardio regular rhythm, S1 normal heart sound, S2 normal heart sound, no murmurs, no ruband no gallops Rate: tachycardic GI normal to inspection, nondistended, normoactive bowel sounds, soft to palpation,non-tender and non-distended Extremity normal to inspection General Extremity: clubbing; Negative for edema Skin no rashes or lesions noted Neuro oriented x3, CN's II-XII intact bilaterally, moves all extremities and no focal motor deficits Psych Activity / Motor Behavior: restless Mood & Affect: anxious Medical Records Data Attestation: I reviewed the patient's medical records Medical records narrative: Patient does not have any previous PFT results available for review Lab / Micro Data Attestation: I reviewed the patient's lab results. 02/04/23 03:04 02/04/23 03:04 Labs: Laboratory Results - last 24 hr 02/04/23 03:04: WBC 14.2 H, RBC 4.73, Hgb 14.4, Hct 45.9, MCV 97.0 D, MCH 30.4,MCHC 31.4 L D, RDW Std Deviation 51.1 H, RDW Coeff of Nehemiah 14.1, Plt Count 279, MPV 11.0, Immature Gran % (Auto) 0.600, Neut % (Auto) 60.2, Lymph % (Auto) 27.9,[place] % (Auto) 10.4 H, Eos % (Auto) 0.4, Baso % (Auto) 0.5, Absolute Neuts (auto)8.5 H, Absolute Lymphs (auto) 3.96, Nucleated RBC % 0, PT 13.7, INR 1.1, APTT 28.7, D-Dimer Quant (PE/DVT) 2.08 H*, Sodium 138, Potassium 4.3, Chloride 106, Carbon Dioxide 25.0, Anion Gap 7, BUN 8, Creatinine 1.06 H, Estim Creat Clear Calc 40.17, Est GFR (MDRD) Af Amer 66, Est GFR (MDRD) Non-Af 55 L, BUN/Creatinine Ratio 7.5 L, Glucose 236 H, Calcium 8.3 L, Troponin I High Sens 128 H* 02/04/23 03:18: Lactic Acid 1.6 02/04/23 04:07: Urine Color Yellow, Urine Clarity Clear, Urine pH 5.0, Ur Specific Quinter 1.025, Urine Protein 100 H, Urine Glucose (UA) Normal, Urine Ketones Negative, Urine Occult Blood 250 H, Urine Nitrite Negative, Urine Bilirubin Negative, Urine Urobilinogen Normal, Ur Leukocyte Esterase 100 H, Urine RBC 0-5 SEEN, Urine WBC 25-50 SEEN, Ur Squamous Epith Cells 10-25 SEEN, Urine Bacteria 3+, Urine Mucus 0 SEEN 02/04/23 06:34: Troponin I High Sens 2716 H* ABG Data ABG results: ABG 02/04/23 02/04/23 02/04/23 03:25 04:23 07:45 Specimen Type ART ART ART Sample Site R Radial L Radial R Radial pH 7.16 L* 7.22 L 7.32 L Bicarbonate Actual 25.5 25.2 22.5 Total CO2 28 27 24 Base Excess -3 L -3 L -4 L O2 Saturation 86 L 92 L 93 L O2 % 48.0 50.0 45.0 ABG pCO2 72.4 H* 62.0 H 43.6 ABG pO2 67 L 77 71 L Zhang Test Positive Positive Positive Respiration Rate 12 14 14 O2 Delivery Device BiPAP BiPAP BiPAP Vent Mode Not entered Not entered Not entered Tidal Volume 500.0 500.0 500.0 POC PEEP 12 12 Crit Call To/Read Back Yes Clinical Comments avaps Imagaing Radiology Impression Chest X-Ray 02/04/23 03:33 IMPRESSION: 1. Thickening of the interlobular septa likely due to interstitial edema which is new since the previous exam. 2. Slight right pleural effusion. Electronically Signed: Bakari Bledsoe MD at 3:49 EST , Chest CTA 02/04/23 04:19 IMPRESSION: 1. No pulmonary embolism or dissection. 2. Diffuse bronchial wall thickening bilaterally with scattered areas of mucus plugging bilaterally. 3. Spiculated pleural-based lesion measuring 1 cm left superior sulcus. Fleischner Society Guidelines recommend a follow-up chest CT in 6-12 months in patients with a low or high risk of malignancy. 4. Small foci of tree-in-bud nodular opacities in the apical posterior segment and the anterior segment of the left upper lobe may represent small foci of infection. 5. Emphysema. 6. Coronary artery disease. 7. Subsegmental atelectasis in the lingula. Electronically Signed: Bakari Bledsoe MD at 6:04 EST , Charges/Coding Visit Charges Inpatient E&M: 52120 Init Hosp L3 02/04/23 1505 <Electronically signed by Wyatt Waytt MD> Cosigner Signature (if applicable): CC: CLINICAL LAB CLERK-Janell Chang; CLINICAL LAB CLERK-C Eduardo Bermudez; CLINICAL LAB CLERK-C Karime Roblero; CLINICAL LAB CLERK-C Patsy Stafford; Cruz Reynolds MD; Dr. Nina Wilson MD; Dr. Eunice Sharma MD; Dr. Cj Rain MD; Dr. Wyatt Wyatt MD; Dr. Braeden Nino MD; Dr. Prince Ortega DO; Dr. Loy Matthew DO; Dr. Rahul Curtis MD; Dr. Raheel Bradley MD; Dr. Jazmine Smiht MD; Dr. Lori Willson MD; Dr. Bakari Tan MD; Dr. Kal Lopez MD; Dr. Montez Lara MD; Dr. Nicolette Bullock MD; Dr. Alexy John MD; Dr. Rene Solo MD; Dr. Rufus Arreola MD; Dr. Federico Al MD; Dr. Jovany Castro MD; Karime Cota; RAQUEL Luis~ Signed [facility] Work Phone: 1(267) 739-254112-22-2023 Discharge summary Author Raheel Yun [facility] February 04, 2023 8:02am Note Date/Time February 04, 2023 3:11am [facility] Medical Records Department [address] [place] [address] Emergency Department Summary 02/04/23 MR#: [id number] Acct: [id number] Name: JONELLE CORONADO Rep #:[id number] : 1955 67 From: Raheel Freeman PCP: HERSON Matthews Status:ADM IN Location: ICU CVICU20 1-1 HPI History of Present Illness Chief Complaint: Shortness of Breath Informant: patient and EMS Limited: stupor and uncooperative Onset/Context/Timing Onset: Yesterday Context: gradual Timing: Continuous Narrative Narrative: Patient presents with shortness of breath that became worse today. Patient was seen here yesterday and was diagnosed with RSV. Patient was able to be discharged home yesterday. Patient has home oxygen at home aerosols. Patient was started on prednisone. EMS reports that the patient was nonverbal for them. Patient did not answer any questions for me. EMS administered Solu-Medrol prior to arrival. [facility] Medical History Adrenal insufficiency Anxiety Aspiration pneumonia Atherosclerotic heart disease of [place] coronary artery without angina pectoris Cardiac arrest Cardiogenic shock Cardiomyopathy Carotid stenosis Carotid stenosis, left Chronic obstructive pulmonary disease (COPD) Coronary artery disease Debility Essential hypertension Healthcare associated bacterial pneumonia History of GI bleed History of myocardial infarction Hyperlipidemia Hypokalemia Hypotension Left shoulder pain NSTEMI (non-ST elevated myocardial infarction) PAD (peripheral artery disease) Peripheral vascular insufficiency Squamous cell carcinoma of left lung STEMI (ST elevation myocardial infarction) Tobacco abuse Tobacco use Torsades de pointes Ventricular tachycardia Home Medications lorazepam 1 mg tablet (Ativan) 1 mg PO QHS 04/15/20 [History Last Taken Unknown] hydrocortisone 10 mg tablet 20 mg PO .COMPLEX adrenal insufficiency 02/04/21 [History Last Taken Unknown] diazepam 5 mg tablet 2.5 mg (1/2 x 5 mg) PO Q8 PRN Muscle Spasm #10 tabs 06/17/21 [Rx Last Taken Unknown] cilostazol 50 mg tablet 50 mg PO BID 12/18/21 [History Last Taken Unknown] lisinopril 2.5 mg tablet 2.5 mg PO DAILY #90 tabs 04/05/22 [Rx Last Taken Unknown] evolocumab 140 mg/mL subcutaneous pen injector (Enriqueta Sanchezick) 140 mg [id number] #2 mL 05/18/22 [Rx Last Taken Unknown] escitalopram oxalate 20 mg tablet (Lexapro) 20 mg PO DAILY 06/30/22 [History Last Taken Unknown] nitroglycerin 0.4 mg sublingual tablet 0.4 mg sublingual Q5-15M PRN chest pain #25 tabs 06/30/22 [Rx Last Taken Unknown] metoprolol tartrate 25 mg tablet 25 mg PO BID #180 tabs 07/14/22 [Rx Last Taken Unknown] ticagrelor 90 mg tablet 90 mg PO BID blood thinner #180 tabs 08/16/22 [Rx Last Taken Unknown] aspirin 81 mg tablet,delayed release (Adult Low Dose Aspirin) 81 mg PO DAILY 01/03/23 [History Last Taken Unknown] hydrocodone-homatropine 5 mg-1.5 mg/5 mL (5 mL) oral syrup (Hycodan) 5 ml PO Q6HPRN cough 5 days #50 mL 02/03/23 [Rx Last Taken Unknown] prednisone 20 mg tablet 40 mg (2 x 20 mg) PO DAILY 7 days #14 tabs 02/03/23 [Rx Last Taken Unknown] Allergy/AdvReac Type Severity Reaction Status Date / Time acetaminophen [From Vicodin] Allergy Intermediate Itching Verified 02/04/23 03:05 atorvastatin AdvReac Severe Myalgias Verified 02/04/23 03:05 hydrocodone AdvReac Itching Verified 02/04/23 03:05 hydrocodone bitartrate AdvReac Itching Verified 02/04/23 03:05 [From Vicodin] oxycodone HCl [From Percocet] AdvReac Itching Verified 02/04/23 03:05 Family History Mother Heart disease Hypertension CVA (cerebral vascular accident) Surgical History Aortocoronary bypass status (~09/24/13) Hx of appendectomy Hx of tubal ligation Presence of stent in coronary artery (~02/10/20) Social History Smoking Status: Current every day smoker tobacco type: cigarettes quit status: considering quitting alcohol intake: never substance use type: does not use caffeine: Yes what type of physical activity do you participate in: none frequency: does not exercise ROS ROS ED Review of Systems ROS Unobtainable: due to mental condition and due to mental status EXAM Physical Exam Const Vital Signs: 02/04/23 02:59 02/04/23 03:03 02/04/23 03:31 Temperature 98.8 F 98.8 F Temperature Source Axillary Axillary Pulse Rate 114 H 124 H Respiratory Rate 26 H 36 H Respiratory Effort Short of Breath Accessory Muscle Use Head [place] Respiratory Depth Shallow Respiratory Pattern Tachypnea Blood Pressure 173/102 H 156/92 H Blood Pressure Mean 125 113 Pulse Ox 87 94 Oxygen Delivery Method Nasal Cannula Nasal Cannula Bi-pap Oxygen Flow Rate (L/min) 6 12 Fraction of Inspired Oxygen (FIO2) 45 02/04/23 03:42 02/04/23 03:35 02/04/23 05:33 Temperature Temperature Source Pulse Rate 124 H 127 H 120 H Respiratory Rate 40 H 42 H 38 H Respiratory Effort Respiratory Depth Respiratory Pattern Tachypnea Tachypnea Blood Pressure 127/92 H Blood Pressure Mean 103 Pulse Ox 89 95 Oxygen Delivery Method Oxygen Flow Rate (L/min) Fraction of Inspired Oxygen (FIO2) 50 45 02/04/23 05:18 Temperature Temperature Source Pulse Rate 120 H Respiratory Rate 37 H Respiratory Effort Respiratory Depth Respiratory Pattern Tachypnea Blood Pressure Blood Pressure Mean Pulse Ox 95 Oxygen Delivery Method Oxygen Flow Rate (L/min) Fraction of Inspired Oxygen (FIO2) 45 Positive well nourished and well developed General Appearance ED: well developed Neck supple and no meningeal signs Resp Auscultation: wheezes expiratory wheezes and throughout Cardio regular rhythm Rate: tachycardic GI non-distended Palpation: soft Extremity normal to inspection General Extremety ED: Negative for edema or tenderness General Extremity: Negative for edema Neuro CN's II-XII intact bilaterally [place] Coma Scale: document GCS findings To Voice Withdraws to Pain Incomprehensible 9 Motor Exam: strength 5/5 throughout Psych Attitude: agitated Mood & Affect: anxious MDM MDM MDM Narrative Medical decision making narrative: Differential diagnosis includes pneumonia, pneumothorax, COPD exacerbation, viral infection, pulmonary embolism, cardiac dysrhythmia, cardiac ischemia, and congestive heart failure. EKG will be obtained to assess for cardiac dysrhythmia and cardiac ischemia. Chest x-ray will be obtained to assess for congestive heart failure, pneumonia, and pneumothorax. CBC will be obtained to assess for leukocytosis and anemia. Basic metabolic profile will be obtained toassess for electrolyte abnormality and renal function. High-sensitivity troponin will be obtained to assess for cardiac ischemia. Lactate will be obtained to assess for sepsis. Blood cultures will be obtained to assess for sepsis. Arterial blood gas will be obtained to assess for pH and oxygenation status. D-dimer will be obtained to assess for pulmonary embolism. Urinalysis will be obtained to assess for urinary tract infection. Urine culture will be obtained to assess for urinary tract infection. Lab Data Lab results narrative: Arterial blood gas was reviewed. pH was 7.155, pCO2 was 72.4, pO2 was 66.5, bicarb was 25.5, and oxygen saturation was 85.5%. This was obtained just after starting BiPAP. CBC was reviewed. There is a leukocytosis of 14.2. The remainder is within normal limits. Basic metabolic profile was reviewed. Glucose was slightly elevated at 236. Anion gap was normal. CO2 was normal. Creatinine was slightly elevated at 1.06. High-sensitivity troponin was reviewed and was elevated at 128. Serum lactate was reviewed and was normal at 1.6. PT was INR and PTT were reviewed and were within normal limits. D-dimer was reviewed and was elevated at 2.08. Repeat ABG after 30 minutes on BiPAP showed a pH of 7.217, pCO2 of 62.0, pO2 of 77.4, bicarb of 25.2, and oxygen saturation of 91.8%. Urinalysis was reviewed. Leukocyte esterase was 100 with 25-50 white blood cells. There were 10-25 epithelial cells. There is 3+ bacteria. Labs: Laboratory Results - last 24 hr 02/04/23 02/04/23 02/04/23 03:04 03:18 04:07 WBC 14.2 H RBC 4.73 Hgb 14.4 Hct 45.9 MCV 97.0 D MCH 30.4 MCHC 31.4 L D RDW Std Deviation 51.1 H RDW Coeff of Nehemiah 14.1 Plt Count 279 MPV 11.0 Immature Gran % (Auto) 0.600 Neut % (Auto) 60.2 Lymph % (Auto) 27.9 [place] % (Auto) 10.4 H Eos % (Auto) 0.4 Baso % (Auto) 0.5 Absolute Neuts (auto) 8.5 H Absolute Lymphs (auto) 3.96 Nucleated RBC % 0 PT 13.7 INR 1.1 APTT 28.7 D-Dimer Quant (PE/DVT) 2.08 H* Sodium 138 Potassium 4.3 Chloride 106 Carbon Dioxide 25.0 Anion Gap 7 BUN 8 Creatinine 1.06 H Estim Creat Clear Calc 40.17 Est GFR (MDRD) Af Amer 66 Est GFR (MDRD) Non-Af 55 L BUN/Creatinine Ratio 7.5 L Glucose 236 H Lactic Acid 1.6 Calcium 8.3 L Troponin I High Sens 128 H* Urine Color Yellow Urine Clarity Clear Urine pH 5.0 Ur Specific [place] 1.025 Urine Protein 100 H Urine Glucose (UA) Normal Urine Ketones Negative Urine Occult Blood 250 H Urine Nitrite Negative Urine Bilirubin Negative Urine Urobilinogen Normal Ur Leukocyte Esterase 100 H Urine RBC 0-5 SEEN Urine WBC 25-50 SEEN Ur Squamous Epith Cells 10-25 SEEN Urine Bacteria 3+ Urine Mucus 0 SEEN ABG Data ABG results: ABG 02/04/23 02/04/23 03:25 04:23 Specimen Type ART ART Sample Site R Radial L Radial pH 7.16 L* 7.22 L Bicarbonate Actual 25.5 25.2 Total CO2 28 27 Base Excess -3 L -3 L O2 Saturation 86 L 92 L O2 % 48.0 50.0 ABG pCO2 72.4 H* 62.0 H ABG pO2 67 L 77 Zhang Test Positive Positive Respiration Rate 12 14 O2 Delivery Device BiPAP BiPAP Vent Mode Not entered Not entered Tidal Volume 500.0 500.0 POC PEEP 12 Crit Call To/Read Back Yes Radiography Chest X-Ray - ED: 1 View, Read by ED Physician, Read by Radiologist and Right Infiltrate Diagnostic Testing: Clinical Impression(s) from Imaging Studies Chest X-Ray 02/04/23 03:33 IMPRESSION: 1. Thickening of the interlobular septa likely due to interstitial edema which is new since the previous exam. 2. Slight right pleural effusion. Electronically Signed: Bakari Bledsoe MD at 3:49 EST , Chest CTA 02/04/23 04:19 IMPRESSION: 1. No pulmonary embolism or dissection. 2. Diffuse bronchial wall thickening bilaterally with scattered areas of mucus plugging bilaterally. 3. Spiculated pleural-based lesion measuring 1 cm left superior sulcus. Fleischner Society Guidelines recommend a follow-up chest CT in 6-12 months in patients with a low or high risk of malignancy. 4. Small foci of tree-in-bud nodular opacities in the apical posterior segment and the anterior segment of the left upper lobe may represent small foci of infection. 5. Emphysema. 6. Coronary artery disease. 7. Subsegmental atelectasis in the lingula. Electronically Signed: Bakari Bledsoe MD at 6:04 EST , Portable chest x-ray was obtained. There is 1 view. On my independent interpretation, there is some right lower lobe interstitial edema and a right pleural effusion. There is no cardiomegaly noted. Bony thorax is normal. Radiologist also interpreted the x-ray and agrees. Because of the elevated D-dimer, CTA of the chest was obtained. EKG Initial EKG: Attestation: I personally reviewed and interpreted this EKG as follows: Interpretation: No Acute Injury Pattern and Sinus Tachycardia (115) Comments: EKG was obtained. On my independent interpretation, it shows a sinus tachycardia with a rate of 115. PA interval was 130 ms. QRS interval was90 ms. QTc interval was 403 ms. [place] was normal at 54. There are nonspecific ST-T wave changes. There is no ST elevation. Prior EKG tracings: available for review Prior: Unchanged (02/03/2023) Treatment and Re-Evaluation :: Patient was started on BiPAP. Patient was given a DuoNeb aerosol through the BiPAP. Since the patient was nonverbal and there is a question of her ability to protect her airway, family was advised of the possibility of the need for intubation. Family is agreeable with this if it is necessary. After the patient returned from her CTA, she became more awake and alert. Patient was able to sit up in bed and talk. Patient was awake, alert, oriented x 3. Patient states she was still somewhat short of breath but feeling better. Because of this, we will hold off on intubation. Patient was started on Rocephin for urinary tract infection coverage. Case was discussed with the hospitalist. He will admit the patient to ICU. Patient and family understand and are agreeable with the plan. All questions were answered. Critical Care Time Critical Care Time: Yes Critical care time (excluding procedures): 30-74 minutes (41), Including time spent:, Discussing w/Patient &/or Family/Music Education Adjunct Professor, Discussing w/Consultants, Arranging Admission or Transfer and Performing Direct Patient Care at Bedside Discharge Plan Dx/Rx/DC Orders Clinical Impression: Acute hypercapnic respiratory failure, RSV bronchitis, Hypoxia, Urinary tract infection, Sepsis Disposition Disposition: Acute Care Hospital [facility] What to do if you have Problems For any increased pain, shortness of breath, bleeding, nausea or vomiting, chestpain, or any unexpected problems, contact your Primary Care Provider. Call [facility] ([phone]) or report to the closest Emergency Room. Call 911 if necessary. 02/04/23 0802 <Electronically signed by Raheel Yun DO> Cosigner Signature (if applicable): CC: HERSON Stafford ~ Signed [facility] Work Phone: 1([phone] 397-834012-22-2023 History and physical note Author Prince Oropeza [facility] February 04, 2023 6:26am Note Date/Time February 04, 2023 4:37am [facility] Medical Records Department [address] [place] [address] H&P Exam - Hospitalist 02/04/23 0437 MR#: [id number] Acct: [id number] Name: JONELLE CORONADO Rep #:[id number] : 1955 67 From: Prince Almazan DO PCP: HERSON Matthews Status:REG ER Location: ED HPI - General General Date of Service: 02/04/23 Chief Complaint: Severe shortness of breath HPI Narrative JONELLE CORONADO, is a 67 F with a past medical history of essential hypertension, hyperlipidemia; with intolerance to statins which cause myalgias, chronic ongoing tobacco abuse, coronary artery disease; status post CABG x 3 (2013) withsubsequent stents (2013 and 2019), history of STEMI; on chronic baby aspirin andticagrelor, history of cardiomyopathy; with history of cardiogenic shock, history of torsade de pointes, history of left carotid stenosis, peripheral arterial disease, history of squamous cell carcinoma of the left lung, history of GI bleed, adrenal insufficiency, osteoarthritis and recently diagnosed RSV pneumonitis during her ER visit on 02/03/2023 with patient subsequently discharged home who re-presents to [facility] ER complaining of severe shortness of breath. Ms. Coronado is not a fully reliable historian at thistime as she is extremely lethargic and acidotic on BiPAP with labored respirations so information was gathered from chart, medical staff and computer. EMS records also show that the patient was nonverbal for them and they administered Solu-Medrol for acute severe bronchospasm. According to the records she developed the abrupt onset of shortness of breath that became much worse today in spite of being started on home oxygen, nebulizers and prednisone. In the ER she was noted to have diffuse expiratory wheezes throughout with diminished breath sounds with an initial arterial blood gases showed a pH of 7.155/pCO2 72.4/pO2 66.5/bicarbonate 25.5 with an oxygen saturation of 85% shortly after starting BiPAP with an x-ray that shows hazy right perihilar infiltrate consistent with suspected early bacterial pneumonia superinfection in the setting of acute severe RSV pneumonitis complicated by clinical evidence of acute hypoxic respiratory failure requiring BiPAP with an associated severe metabolic encephalopathy and her second ABG showing a pH of 7.217/pCO2 of 62/pO2of 77.4/HCO3 of 25.2 with an oxygen saturation of 91.8% still on BiPAP with relatively poor mental status compounded by an elevated initial troponin of 128 pg/mL present on admission with a nonspecific EKG that shows sinus tachycardia 115 bpm with no acute ischemic changes and normal intervals suspected to be due to acute cardiac strain/non-STEMI type II with a critically elevated D-dimer of 2.08 suspicious for acute PE with CTA of the chest pending at this time. She was then admitted to the ICU for ongoing care for stay that is expected to be greater than 48 hours. [facility] Medical History Adrenal insufficiency Anxiety Aspiration pneumonia Atherosclerotic heart disease of [place] coronary artery without angina pectoris Cardiac arrest Cardiogenic shock Cardiomyopathy Carotid stenosis Carotid stenosis, left Chronic obstructive pulmonary disease (COPD) Coronary artery disease Debility Essential hypertension Healthcare associated bacterial pneumonia History of GI bleed History of myocardial infarction Hyperlipidemia Hypokalemia Hypotension Left shoulder pain NSTEMI (non-ST elevated myocardial infarction) PAD (peripheral artery disease) Peripheral vascular insufficiency Squamous cell carcinoma of left lung STEMI (ST elevation myocardial infarction) Tobacco abuse Tobacco use Torsades de pointes Ventricular tachycardia Home Medications lorazepam 1 mg tablet (Ativan) 1 mg PO QHS 04/15/20 [History Last Taken Unknown] hydrocortisone 10 mg tablet 20 mg PO .COMPLEX adrenal insufficiency 02/04/21 [History Last Taken Unknown] diazepam 5 mg tablet 2.5 mg (1/2 x 5 mg) PO Q8 PRN Muscle Spasm #10 tabs 06/17/21 [Rx Last Taken Unknown] cilostazol 50 mg tablet 50 mg PO BID 12/18/21 [History Last Taken Unknown] lisinopril 2.5 mg tablet 2.5 mg PO DAILY #90 tabs 04/05/22 [Rx Last Taken Unknown] evolocumab 140 mg/mL subcutaneous pen injector (Repatha SureClick) 140 mg [id number] #2 mL 05/18/22 [Rx Last Taken Unknown] escitalopram oxalate 20 mg tablet (Lexapro) 20 mg PO DAILY 06/30/22 [History Last Taken Unknown] nitroglycerin 0.4 mg sublingual tablet 0.4 mg sublingual Q5-15M PRN chest pain #25 tabs 06/30/22 [Rx Last Taken Unknown] metoprolol tartrate 25 mg tablet 25 mg PO BID #180 tabs 07/14/22 [Rx Last Taken Unknown] ticagrelor 90 mg tablet 90 mg PO BID blood thinner #180 tabs 08/16/22 [Rx Last Taken Unknown] aspirin 81 mg tablet,delayed release (Adult Low Dose Aspirin) 81 mg PO DAILY 01/03/23 [History Last Taken Unknown] hydrocodone-homatropine 5 mg-1.5 mg/5 mL (5 mL) oral syrup (Hycodan) 5 ml PO Q6HPRN cough 5 days #50 mL 02/03/23 [Rx Last Taken Unknown] prednisone 20 mg tablet 40 mg (2 x 20 mg) PO DAILY 7 days #14 tabs 02/03/23 [Rx Last Taken Unknown] Allergy/AdvReac Type Severity Reaction Status Date / Time acetaminophen [From Vicodin] Allergy Intermediate Itching Verified 02/04/23 03:05 atorvastatin AdvReac Severe Myalgias Verified 02/04/23 03:05 hydrocodone AdvReac Itching Verified 02/04/23 03:05 hydrocodone bitartrate AdvReac Itching Verified 02/04/23 03:05 [From Vicodin] oxycodone HCl [From Percocet] AdvReac Itching Verified 02/04/23 03:05 Family History Mother Heart disease Hypertension CVA (cerebral vascular accident) Surgical History Aortocoronary bypass status (~09/24/13) Hx of appendectomy Hx of tubal ligation Presence of stent in coronary artery (~02/10/20) Social History Smoking Status: Current every day smoker tobacco type: cigarettes quit status: considering quitting alcohol intake: never substance use type: does not use caffeine: Yes what type of physical activity do you participate in: none frequency: does not exercise ROS ROS Narrative Patient is lethargic and encephalopathic on BiPAP with severe shortness of breath so review of systems cannot be completed at this time. Review of Systems ROS Unobtainable: due to encephalopathy Vital Signs Vital Signs Vital Signs: 02/04/23 02:59 02/04/23 03:03 02/04/23 03:31 Temperature 98.8 F 98.8 F Temperature Source Axillary Axillary Pulse Rate 114 H 124 H Respiratory Rate 26 H 36 H Respiratory Effort Short of Breath Accessory Muscle Use Head [place] Respiratory Depth Shallow Respiratory Pattern Tachypnea Blood Pressure 173/102 H 156/92 H Blood Pressure Mean 125 113 Pulse Ox 87 94 Oxygen Delivery Method Nasal Cannula Nasal Cannula Bi-pap Oxygen Flow Rate (L/min) 6 12 Fraction of Inspired Oxygen (FIO2) 45 02/04/23 03:42 02/04/23 03:35 Temperature Temperature Source Pulse Rate 124 H 127 H Respiratory Rate 40 H 42 H Respiratory Effort Respiratory Depth Respiratory Pattern Tachypnea Tachypnea Blood Pressure Blood Pressure Mean Pulse Ox 89 Oxygen Delivery Method Oxygen Flow Rate (L/min) Fraction of Inspired Oxygen (FIO2) 50 Weight Weight: 130 lb 4.691 oz Body Mass Index (BMI) 23.8 Physical Exam Const Constitutional Narrative: Patient is lethargic, confused and listless on BiPAP. Orientation / Consciousness: confused, disoriented and lethargic HEENT normocephalic, head/scalp atraumatic and hearing grossly normal bilaterally HEENT Narrative: Oropharynx dry. Eyes PERRL Neck no lymphadenopathy and supple Resp Resp Narrative: Patient has diffuse inspiratory and expiratory wheezing with diminished breath sounds throughout and very labored respirations on BiPAP with patient still breathing approximately 40 times per minute. Auscultation: wheezes Cardio regular rate and regular rhythm Cardio Narrative: Tachycardia in the 124 bpm range. GI normal to inspection, nondistended, normoactive bowel sounds, soft to palpation,non-tender and non-distended Extremity normal to inspection Skin Skin Narrative: Patient has no evidence of rash at this time. Neuro Neuro Narrative: Patient is lethargic, confused and listless on BiPAP. Psych Psych Narrative: Patient is confused and lethargic and cannot follow any commands. Results Medical Records Data Attestation: I reviewed the patient's medical records Lab / Micro Data Attestation: I reviewed the patient's lab results. 02/04/23 03:04 02/04/23 03:04 Labs: Laboratory Results - last 24 hr 02/04/23 03:04: WBC 14.2 H, RBC 4.73, Hgb 14.4, Hct 45.9, MCV 97.0 D, MCH 30.4,MCHC 31.4 L D, RDW Std Deviation 51.1 H, RDW Coeff of Nehemiah 14.1, Plt Count 279, MPV 11.0, Immature Gran % (Auto) 0.600, Neut % (Auto) 60.2, Lymph % (Auto) 27.9,[place] % (Auto) 10.4 H, Eos % (Auto) 0.4, Baso % (Auto) 0.5, Absolute Neuts (auto)8.5 H, Absolute Lymphs (auto) 3.96, Nucleated RBC % 0, PT 13.7, INR 1.1, APTT 28.7, D-Dimer Quant (PE/DVT) 2.08 H*, Sodium 138, Potassium 4.3, Chloride 106, Carbon Dioxide 25.0, Anion Gap 7, BUN 8, Creatinine 1.06 H, Estim Creat Clear Calc 40.17, Est GFR (MDRD) Af Amer 66, Est GFR (MDRD) Non-Af 55 L, BUN/Creatinine Ratio 7.5 L, Glucose 236 H, Calcium 8.3 L, Troponin I High Sens 128 H* 02/04/23 03:18: Lactic Acid 1.6 ABG Data ABG results: ABG 02/04/23 02/04/23 03:25 04:23 Specimen Type ART ART Sample Site R Radial L Radial pH 7.16 L* 7.22 L Bicarbonate Actual 25.5 25.2 Total CO2 28 27 Base Excess -3 L -3 L O2 Saturation 86 L 92 L O2 % 48.0 50.0 ABG pCO2 72.4 H* 62.0 H ABG pO2 67 L 77 Zhang Test Positive Positive Respiration Rate 12 14 O2 Delivery Device BiPAP BiPAP Vent Mode Not entered Not entered Tidal Volume 500.0 500.0 POC PEEP 12 Crit Call To/Read Back Yes Attestation: I personally reviewed and interpreted this ABG as follows: Interpretation: Severe acute respiratory acidosis essentially refractory to treatment BiPAP Imagaing Radiology Impression Chest X-Ray 02/04/23 03:33 IMPRESSION: 1. Thickening of the interlobular septa likely due to interstitial edema which is new since the previous exam. 2. Slight right pleural effusion. Electronically Signed: Bakari Bledsoe MD at 3:49 EST , Assessment & Plan Assessment/Plan (1) RSV bronchitis: (2) Secondary bacterial pneumonia: (3) COPD exacerbation: (4) Acute respiratory failure: QUALIFIERS: Respiratory failure complication: hypoxia and hypercapnia Qualified Code(s): J96.01 - Acute respiratory failure with hypoxia;J96.02 - Acute respiratory failure with hypercapnia (5) Elevated troponin I level: (6) Acute metabolic encephalopathy: PLAN: Plan 1. Severe acute RSV pneumonitis complicated by right hilar infiltrate suspectedto be due to acute bacterial superinfection with acute hypoxic respiratory failure refractory to treatment with BiPAP - Admit to ICU on contact and dropletprecautions. Continue broad-spectrum antibiotics and await culture and sensitivity data. Give Tylenol as needed for pain or fever. Patient in no evidence of sepsis at the time of admission. 2. Elevated troponin of 128 pg/mL present on admission likely due to non-STEMI type II from acute cardiac strain stemming from #1 in the setting of an extensive cardiac history including CABG x3, multiple stents, STEMI and known cardiomyopathy with previous VT/torsades de pointes - Start IV heparin and continue baby aspirin and ticagrelor along with statin. Serialize troponin. Check echocardiogram to evaluate left ventricular ejection fraction. Finally, we will consult allergist/immunologist on- call to see this patient on rounds in the a.m. for further recommendations with help appreciated in advance. 3. Acute exacerbation of COPD in the setting of ongoing tobacco abuse compounding #1 & #2 setting of a known history of squamous cell carcinoma of theleft lung - Continue IV Solu-Medrol with scheduled and as needed breathing treatments. Tobacco cessation will be strongly encouraged with nicotine patch not placed due to relatively increased risk of coronary artery vasospasm relatedto #2. 4. Critically elevated D-dimer of 2.08 present on admission suspicious for underlying DVT/PE adding to the pathology of #1 - #3 - Proceed with CTA of the chest ordered in the ER with patient's x-rays not consistent with the degree of acute severe respiratory illness she is manifesting clinically at this time. 5. Severe acute metabolic encephalopathy arising from #1 - #4 - Continue supportive care and monitor for improvement. Check TSH. 6. History of squamous cell carcinoma of the left lung 7. Essential hypertension - Hold scheduled antihypertensives at this time. Give IV hydralazine as needed for systolic blood pressure greater than 160 mmHg. 8. Hyperlipidemia; with intolerance to statins which cause myalgias - Check lipid profile this admission to assess effectiveness of Repatha. 9. History of left carotid stenosis - Noted. Continue antiplatelet therapy as previous. 10. Peripheral arterial disease - Noted. Apparently stable at this time. 11. History of GI bleed - Give Protonix IV in light of high-dose steroids for #3. 12. Adrenal insufficiency - Patient on high-dose Solu-Medrol with stable blood pressures at this time. 13. Osteoarthritis - Stable. 14. DVT prophylaxis - Patient started on IV heparin per protocol for #2 & #4. Update: Just after patient was about to be intubated after her CT was completed she clinically improved and was alert and responsive. She will therefore be continued on BiPAP at this time with repeat ABG pending. Total time: Approximately 95 minutes. Charges/Coding Visit Charges Inpatient E&M: 25290 Init Hosp L3 02/04/23 0626 <Electronically signed by Prince Ortega DO> Cosigner Signature (if applicable): CC: CLINICAL LAB CLERKDominick Stafford; Dr. Prince Ortega DO~ Signed [facility] Work Phone: 1(336) 694-407212-22-2023 History and physical note Author Prince Oropeza [facility] February 04, 2023 6:26am Note Date/Time February 04, 2023 4:37am [facility] Medical Records Department [address] [place] [id number] H&P Exam - Hospitalist 02/04/23 0437 MR#: [id number] Acct: [id number] Name: JONELLE CORONADO Rep #:[id number] : 1955 67 From: Prince Almazan DO PCP: HERSON Matthews Status:REG ER Location: ED HPI - General General Date of Service: 02/04/23 Chief Complaint: Severe shortness of breath HPI Narrative JONELLE CORONADO, is a 67 F with a past medical history of essential hypertension, hyperlipidemia; with intolerance to statins which cause myalgias, chronic ongoing tobacco abuse, coronary artery disease; status post CABG x 3 (2013) withsubsequent stents (2013 and 2019), history of STEMI; on chronic baby aspirin andticagrelor, history of cardiomyopathy; with history of cardiogenic shock, history of torsade de pointes, history of left carotid stenosis, peripheral arterial disease, history of squamous cell carcinoma of the left lung, history of GI bleed, adrenal insufficiency, osteoarthritis and recently diagnosed RSV pneumonitis during her ER visit on 02/03/2023 with patient subsequently discharged home who re-presents to [facility] ER complaining of severe shortness of breath. Ms. Coronado is not a fully reliable historian at thistime as she is extremely lethargic and acidotic on BiPAP with labored respirations so information was gathered from chart, medical staff and computer. EMS records also show that the patient was nonverbal for them and they administered Solu-Medrol for acute severe bronchospasm. According to the records she developed the abrupt onset of shortness of breath that became much worse today in spite of being started on home oxygen, nebulizers and prednisone. In the ER she was noted to have diffuse expiratory wheezes throughout with diminished breath sounds with an initial arterial blood gases showed a pH of 7.155/pCO2 72.4/pO2 66.5/bicarbonate 25.5 with an oxygen saturation of 85% shortly after starting BiPAP with an x-ray that shows hazy right perihilar infiltrate consistent with suspected early bacterial pneumonia superinfection in the setting of acute severe RSV pneumonitis complicated by clinical evidence of acute hypoxic respiratory failure requiring BiPAP with an associated severe metabolic encephalopathy and her second ABG showing a pH of 7.217/pCO2 of 62/pO2of 77.4/HCO3 of 25.2 with an oxygen saturation of 91.8% still on BiPAP with relatively poor mental status compounded by an elevated initial troponin of 128 pg/mL present on admission with a nonspecific EKG that shows sinus tachycardia 115 bpm with no acute ischemic changes and normal intervals suspected to be due to acute cardiac strain/non-STEMI type II with a critically elevated D-dimer of 2.08 suspicious for acute PE with CTA of the chest pending at this time. She was then admitted to the ICU for ongoing care for stay that is expected to be greater than 48 hours. [facility] Medical History Adrenal insufficiency Anxiety Aspiration pneumonia Atherosclerotic heart disease of [place] coronary artery without angina pectoris Cardiac arrest Cardiogenic shock Cardiomyopathy Carotid stenosis Carotid stenosis, left Chronic obstructive pulmonary disease (COPD) Coronary artery disease Debility Essential hypertension Healthcare associated bacterial pneumonia History of GI bleed History of myocardial infarction Hyperlipidemia Hypokalemia Hypotension Left shoulder pain NSTEMI (non-ST elevated myocardial infarction) PAD (peripheral artery disease) Peripheral vascular insufficiency Squamous cell carcinoma of left lung STEMI (ST elevation myocardial infarction) Tobacco abuse Tobacco use Torsades de pointes Ventricular tachycardia Home Medications lorazepam 1 mg tablet (Ativan) 1 mg PO QHS 04/15/20 [History Last Taken Unknown] hydrocortisone 10 mg tablet 20 mg PO .COMPLEX adrenal insufficiency 02/04/21 [History Last Taken Unknown] diazepam 5 mg tablet 2.5 mg (1/2 x 5 mg) PO Q8 PRN Muscle Spasm #10 tabs 06/17/21 [Rx Last Taken Unknown] cilostazol 50 mg tablet 50 mg PO BID 12/18/21 [History Last Taken Unknown] lisinopril 2.5 mg tablet 2.5 mg PO DAILY #90 tabs 04/05/22 [Rx Last Taken Unknown] evolocumab 140 mg/mL subcutaneous pen injector (Repatha SureClick) 140 mg [id number] #2 mL 05/18/22 [Rx Last Taken Unknown] escitalopram oxalate 20 mg tablet (Lexapro) 20 mg PO DAILY 06/30/22 [History Last Taken Unknown] nitroglycerin 0.4 mg sublingual tablet 0.4 mg sublingual Q5-15M PRN chest pain #25 tabs 06/30/22 [Rx Last Taken Unknown] metoprolol tartrate 25 mg tablet 25 mg PO BID #180 tabs 07/14/22 [Rx Last Taken Unknown] ticagrelor 90 mg tablet 90 mg PO BID blood thinner #180 tabs 08/16/22 [Rx Last Taken Unknown] aspirin 81 mg tablet,delayed release (Adult Low Dose Aspirin) 81 mg PO DAILY 01/03/23 [History Last Taken Unknown] hydrocodone-homatropine 5 mg-1.5 mg/5 mL (5 mL) oral syrup (Hycodan) 5 ml PO Q6HPRN cough 5 days #50 mL 02/03/23 [Rx Last Taken Unknown] prednisone 20 mg tablet 40 mg (2 x 20 mg) PO DAILY 7 days #14 tabs 02/03/23 [Rx Last Taken Unknown] Allergy/AdvReac Type Severity Reaction Status Date / Time acetaminophen [From Vicodin] Allergy Intermediate Itching Verified 02/04/23 03:05 atorvastatin AdvReac Severe Myalgias Verified 02/04/23 03:05 hydrocodone AdvReac Itching Verified 02/04/23 03:05 hydrocodone bitartrate AdvReac Itching Verified 02/04/23 03:05 [From Vicodin] oxycodone HCl [From Percocet] AdvReac Itching Verified 02/04/23 03:05 Family History Mother Heart disease Hypertension CVA (cerebral vascular accident) Surgical History Aortocoronary bypass status (~09/24/13) Hx of appendectomy Hx of tubal ligation Presence of stent in coronary artery (~02/10/20) Social History Smoking Status: Current every day smoker tobacco type: cigarettes quit status: considering quitting alcohol intake: never substance use type: does not use caffeine: Yes what type of physical activity do you participate in: none frequency: does not exercise ROS ROS Narrative Patient is lethargic and encephalopathic on BiPAP with severe shortness of breath so review of systems cannot be completed at this time. Review of Systems ROS Unobtainable: due to encephalopathy Vital Signs Vital Signs Vital Signs: 02/04/23 02:59 02/04/23 03:03 02/04/23 03:31 Temperature 98.8 F 98.8 F Temperature Source Axillary Axillary Pulse Rate 114 H 124 H Respiratory Rate 26 H 36 H Respiratory Effort Short of Breath Accessory Muscle Use Head [place] Respiratory Depth Shallow Respiratory Pattern Tachypnea Blood Pressure 173/102 H 156/92 H Blood Pressure Mean 125 113 Pulse Ox 87 94 Oxygen Delivery Method Nasal Cannula Nasal Cannula Bi-pap Oxygen Flow Rate (L/min) 6 12 Fraction of Inspired Oxygen (FIO2) 45 02/04/23 03:42 02/04/23 03:35 Temperature Temperature Source Pulse Rate 124 H 127 H Respiratory Rate 40 H 42 H Respiratory Effort Respiratory Depth Respiratory Pattern Tachypnea Tachypnea Blood Pressure Blood Pressure Mean Pulse Ox 89 Oxygen Delivery Method Oxygen Flow Rate (L/min) Fraction of Inspired Oxygen (FIO2) 50 Weight Weight: 130 lb 4.691 oz Body Mass Index (BMI) 23.8 Physical Exam Const Constitutional Narrative: Patient is lethargic, confused and listless on BiPAP. Orientation / Consciousness: confused, disoriented and lethargic HEENT normocephalic, head/scalp atraumatic and hearing grossly normal bilaterally HEENT Narrative: Oropharynx dry. Eyes PERRL Neck no lymphadenopathy and supple Resp Resp Narrative: Patient has diffuse inspiratory and expiratory wheezing with diminished breath sounds throughout and very labored respirations on BiPAP with patient still breathing approximately 40 times per minute. Auscultation: wheezes Cardio regular rate and regular rhythm Cardio Narrative: Tachycardia in the 124 bpm range. GI normal to inspection, nondistended, normoactive bowel sounds, soft to palpation,non-tender and non-distended Extremity normal to inspection Skin Skin Narrative: Patient has no evidence of rash at this time. Neuro Neuro Narrative: Patient is lethargic, confused and listless on BiPAP. Psych Psych Narrative: Patient is confused and lethargic and cannot follow any commands. Results Medical Records Data Attestation: I reviewed the patient's medical records Lab / Micro Data Attestation: I reviewed the patient's lab results. 02/04/23 03:04 02/04/23 03:04 Labs: Laboratory Results - last 24 hr 02/04/23 03:04: WBC 14.2 H, RBC 4.73, Hgb 14.4, Hct 45.9, MCV 97.0 D, MCH 30.4,MCHC 31.4 L D, RDW Std Deviation 51.1 H, RDW Coeff of Nehemiah 14.1, Plt Count 279, MPV 11.0, Immature Gran % (Auto) 0.600, Neut % (Auto) 60.2, Lymph % (Auto) 27.9,[place] % (Auto) 10.4 H, Eos % (Auto) 0.4, Baso % (Auto) 0.5, Absolute Neuts (auto)8.5 H, Absolute Lymphs (auto) 3.96, Nucleated RBC % 0, PT 13.7, INR 1.1, APTT 28.7, D-Dimer Quant (PE/DVT) 2.08 H*, Sodium 138, Potassium 4.3, Chloride 106, Carbon Dioxide 25.0, Anion Gap 7, BUN 8, Creatinine 1.06 H, Estim Creat Clear Calc 40.17, Est GFR (MDRD) Af Amer 66, Est GFR (MDRD) Non-Af 55 L, BUN/Creatinine Ratio 7.5 L, Glucose 236 H, Calcium 8.3 L, Troponin I High Sens 128 H* 02/04/23 03:18: Lactic Acid 1.6 ABG Data ABG results: ABG 02/04/23 02/04/23 03:25 04:23 Specimen Type ART ART Sample Site R Radial L Radial pH 7.16 L* 7.22 L Bicarbonate Actual 25.5 25.2 Total CO2 28 27 Base Excess -3 L -3 L O2 Saturation 86 L 92 L O2 % 48.0 50.0 ABG pCO2 72.4 H* 62.0 H ABG pO2 67 L 77 Zhang Test Positive Positive Respiration Rate 12 14 O2 Delivery Device BiPAP BiPAP Vent Mode Not entered Not entered Tidal Volume 500.0 500.0 POC PEEP 12 Crit Call To/Read Back Yes Attestation: I personally reviewed and interpreted this ABG as follows: Interpretation: Severe acute respiratory acidosis essentially refractory to treatment BiPAP Imagaing Radiology Impression Chest X-Ray 02/04/23 03:33 IMPRESSION: 1. Thickening of the interlobular septa likely due to interstitial edema which is new since the previous exam. 2. Slight right pleural effusion. Electronically Signed: Bakari Bledsoe MD at 3:49 EST , Assessment & Plan Assessment/Plan (1) RSV bronchitis: (2) Secondary bacterial pneumonia: (3) COPD exacerbation: (4) Acute respiratory failure: QUALIFIERS: Respiratory failure complication: hypoxia and hypercapnia Qualified Code(s): J96.01 - Acute respiratory failure with hypoxia;J96.02 - Acute respiratory failure with hypercapnia (5) Elevated troponin I level: (6) Acute metabolic encephalopathy: PLAN: Plan 1. Severe acute RSV pneumonitis complicated by right hilar infiltrate suspectedto be due to acute bacterial superinfection with acute hypoxic respiratory failure refractory to treatment with BiPAP - Admit to ICU on contact and dropletprecautions. Continue broad-spectrum antibiotics and await culture and sensitivity data. Give Tylenol as needed for pain or fever. Patient in no evidence of sepsis at the time of admission. 2. Elevated troponin of 128 pg/mL present on admission likely due to non-STEMI type II from acute cardiac strain stemming from #1 in the setting of an extensive cardiac history including CABG x3, multiple stents, STEMI and known cardiomyopathy with previous VT/torsades de pointes - Start IV heparin and continue baby aspirin and ticagrelor along with statin. Serialize troponin. Check echocardiogram to evaluate left ventricular ejection fraction. Finally, we will consult allergist/immunologist on- call to see this patient on rounds in the a.m. for further recommendations with help appreciated in advance. 3. Acute exacerbation of COPD in the setting of ongoing tobacco abuse compounding #1 & #2 setting of a known history of squamous cell carcinoma of theleft lung - Continue IV Solu-Medrol with scheduled and as needed breathing treatments. Tobacco cessation will be strongly encouraged with nicotine patch not placed due to relatively increased risk of coronary artery vasospasm relatedto #2. 4. Critically elevated D-dimer of 2.08 present on admission suspicious for underlying DVT/PE adding to the pathology of #1 - #3 - Proceed with CTA of the chest ordered in the ER with patient's x-rays not consistent with the degree of acute severe respiratory illness she is manifesting clinically at this time. 5. Severe acute metabolic encephalopathy arising from #1 - #4 - Continue supportive care and monitor for improvement. Check TSH. 6. History of squamous cell carcinoma of the left lung 7. Essential hypertension - Hold scheduled antihypertensives at this time. Give IV hydralazine as needed for systolic blood pressure greater than 160 mmHg. 8. Hyperlipidemia; with intolerance to statins which cause myalgias - Check lipid profile this admission to assess effectiveness of Repatha. 9. History of left carotid stenosis - Noted. Continue antiplatelet therapy as previous. 10. Peripheral arterial disease - Noted. Apparently stable at this time. 11. History of GI bleed - Give Protonix IV in light of high-dose steroids for #3. 12. Adrenal insufficiency - Patient on high-dose Solu-Medrol with stable blood pressures at this time. 13. Osteoarthritis - Stable. 14. DVT prophylaxis - Patient started on IV heparin per protocol for #2 & #4. Update: Just after patient was about to be intubated after her CT was completed she clinically improved and was alert and responsive. She will therefore be continued on BiPAP at this time with repeat ABG pending. Total time: Approximately 95 minutes. Charges/Coding Visit Charges Inpatient E&M: 49700 Init Hosp L3 02/04/23 0626 <Electronically signed by Prince Ortega DO> Cosigner Signature (if applicable): CC: HERSON Stafford; Dr. Prince Ortega DO~ Signed [facility] Work Phone: 1(199) 393-811012-12-2023 NoteHNO ID: [id number] Author: Jeevan Boss MD Service: ? Author Type: Physician Type: [...] Date APPENDECTOMY 1973 PAST SURGICAL HISTORY OF 9129-4526 cardiac stent x4 PAST SURGICAL HISTORY OF [...] which included preparing to see the patient, [id number] patient care, completing clinical documentation, obtaining and/or reviewing separately obtained history, performing a medically appropriate examination, counseling and educating the patient/family/caregiver, ordering medications, tests, or procedures, independently interpreting results (not separately reported), and communicating results to the patient/family/caregiver. Electronically Signed: Jeevan Boss MD January 25, 2023 10:52 [facility]12-12-2023 History of Present illness Narrative* Jeevan Boss MD - 01/25/2023 10:50 AM EST HISTORY OF PRESENT ILLNESS: Jonelle Coronado is [...] Date APPENDECTOMY 1973 PAST SURGICAL HISTORY OF [id number] cardiac stent x4 PAST SURGICAL HISTORY OF [...] nebulizer solution Inhale 1 ampule via nebulizer every4 hours as needed for wheezing. OXYGEN, HOME [...] which included preparing to see the patient, [id number] patient care, completing clinical documentation, obtaining and/or reviewing separately obtained history, performing a medically appropriate examination, counseling and educating the pat ient/family/caregiver, ordering medications, tests, or procedures, independently interpreting results (not separately reported), and communicating results to the patient/family/caregiver. Electronically Signed: Jeevan Boss MD January 25, 2023 10:52 AM [facility] History of Present illness Narrative* Senia Ponce RT(R) - 01/25/2023 10:10 AM EST Radiology Service Progress Note PATIENT NAME: Jonelle Coronado DATE OF SERVICE: January 25, 2023 TIME: 10:15 AM PATIENT IDENTITY VERIFICATION COMPLETED USING TWO (2) IDENTIFIERS: Name and Date of confirmedby patient verbally. FALL SCREENING: Has the patient had 2 falls in the last year or 1 fall with injury or currently using an Ambulatory Assistive Device (Walker, Cane, Wheelchair, Crutches, etc.)? No PATIENT GENDER DATA: Female. status: : No status: NO. PATIENT RELEVANT IMPLANT DATA REVIEWED: Yes RADIOLOGY DEPARTMENT: General X-ray: Exam(s) Completed: Chest X-Ray PERIPHERAL IV DATA: Not applicable SIGNED BY: RAJWINDER GarciaR) January 25, 2023 10:15 AM documented in this encounterKind[facility]12-12-2023 NoteHNO ID: [id number] Author: Senia Ponce RT(R) Service: Radiology Author [...] BY: RT Radha(R) January 25, 2023 10:15 [facility]07-17-2023 Miscellaneous Notes* Telephone Encounter - Lilly Grant - 08/30/2022 8:18 AM EDT Patient has been identified by name and [...] and advise. Lilly Walsh documented [facility]07-[facility]23 History of Present illness Narrative* Nola Diggs RT(R) - 08/19/2022 10:00 AM EDT Radiology Service Progress Note PATIENT NAME: Jonelle Coronado DATE OF SERVICE: August 19, 2022 TIME: 10:06 AM PATIENT IDENTITY VERIFICATION COMPLETED USING TWO (2) IDENTIFIERS: Name and Date of confirmedby patient verbally. FALL SCREENING: Has the patient had 2 falls in the last year or 1 fall with injury or currently using an Ambulatory Assistive Device (Walker, Cane, Wheelchair, Crutches, etc.)? No PATIENT GENDER DATA: Female. status: : No status: NO. PATIENT RELEVANT IMPLANT DATA REVIEWED: Not Applicable RADIOLOGY DEPARTMENT: General X-ray: Exam(s) Completed: Upper Extremity X- Ray(s): Wrist, right PERIPHERAL IV DATA: Not applicable SIGNED BY: RT Marylin(R) August 19, 2022 10:06 AM documented in this encounterKind[facility]07-06-2023 NoteHNO ID: [id number] Author: RT Marylin(Arely) Service: Nuclear Medicine Author Type: Technologist Type: [...] BY: RT Marylin(R) August 19, 2022 10:06 [facility]06-09-2023 History of Present illness Narrative* Lilly Corey RT(R) - 07/23/2022 9:40 AM EDT Radiology Service Progress Note PATIENT NAME: Jonelle Coronado DATE OF SERVICE: July 23, 2022 TIME: 3:10 PM PATIENT IDENTITY VERIFICATION COMPLETED USING TWO (2) IDENTIFIERS: Name and Date of confirmedby patient verbally. FALL SCREENING: Has the patient had 2 falls in the last year or 1 fall with injury or currently using an Ambulatory Assistive Device (Walker, Cane, Wheelchair, Crutches, etc.)? No PATIENT GENDER DATA: Female. status: : No status: NO. PATIENT RELEVANT IMPLANT DATA REVIEWED: Not Applicable RADIOLOGY DEPARTMENT: General X-ray: Exam(s) Completed: Upper Extremity X- Ray(s): Forearm, right and Wrist, right PERIPHERAL IV DATA: Not applicable SIGNED BY: RT Sally(R) July 23, 2022 3:10 PM documented in this encounterKind[facility] [place]06-05-2023 Miscellaneous Notes* Telephone Encounter - Winsome Crawford - 07/19/2022 1:45 PM EDT Sent e-mail to [facility] leadership regarding this. * Telephone Encounter - Lilly Gonzalez Pss - 07/19/2022 11:57 AM EDT Patient states she left office visit today without being seen. She states she does not want her insurance billed for OV. documented in this encounterKind[facility]06-[facility]-2023 History of Present illness Narrative* Paola Fried APRN.CNP - 07/19/2022 10:52 AM EDT Pt. left without being seen. Paola Fried APRN.CNP documented in this encounterKind[facility]05-30-2023 History of Present illness Narrative* Lorena Caal RT(R) - 07/13/2022 10:20 AM EDT Radiology Service Progress Note PATIENT NAME: Jonelle Coronado DATE OF SERVICE: July 13, 2022 TIME: 1:59 PM PATIENT IDENTITY VERIFICATION COMPLETED USING TWO (2) IDENTIFIERS: Name and Date of confirmedby patient verbally. FALL SCREENING: Has the patient [...] 13, 2022 1:59 PM documented in this encounterKind[facility]03-07-2023 History of Present illness Narrative* Simi Castillo PA-C - 04/20/2022 1:30 PM EST Vascular Surgery Office Visit Chief Complaint Patient presents with Follow-up ([place]) PVD follow up/PAD check (last seen 2020) HISTORY OF PRESENT ILLNESS: The patient is a 66 y.o. female who returns for follow-up of peripheral vascular disease.Patient was seeing Dr. Tellez back in 2020 due to significant claudication. A CTA was ordered and determinedpatient would most likely need aortobifemoral bypass. Patient stated symptoms improved and continued on Pletal. Patient returns today to discuss PAD symptoms. She states she can walk around [employer] without difficulty. She has COPD and notes SOB inhibits walking distance more than leg pain. She states left sidestarts to bother her before right side when walking. She denies rest pain or nonhealing foot wounds. Patients states she cannot afford to have testing done but would prefer to follow with us and takePletal still. Overall, she does not feel like symptoms in legs are affecting her day to day life. Patient had carotid duplex completed in 2020 that showed velocity of 180 cm/s on left side. Patientdenies history of stroke, TIA, amaurosis fugax, hemiparesis, facial drooping, and dysarthria. She has not had any recent imaging. She is on ASA and Repatha. She is smoking 0.5 PPD PastMedical History: Past Medical History: Diagnosis Date Adrenal insufficiency (CMS/HCC) ([facility]) Anxiety Aspiration pneumonia (CMS/HCC) ([facility]) Atherosclerotic heart disease of [place] coronary artery without angina pectoris CAD (coronary artery disease) Cardiac arrest ([facility]) Cardiogenic shock ([facility]) Cardiomyopathy (HCC) Carotid stenosis, left COPD (chronic obstructive pulmonary disease) ([facility]) Debility History of GI bleed HTN (hypertension) Hyperlipidemia Hypokalemia Hypotension NSTEMI (non-ST elevated myocardial infarction) (CMS/HCC) ([facility]) PAD (peripheral artery disease) ([facility]) Peripheral vascular insufficiency ([facility]) ([facility]) Squamous cell carcinoma of left lung (HCC) STEMI (ST elevation myocardial infarction) ([facility]) Ventricular tachycardia Past Surgical History: Past Surgical History: Procedure Laterality Date APPENDECTOMY CORONARY ANGIOPLASTY TUBAL LIGATION Current Medications: Prior to Admission medications Medication Sig Start Date End Date Taking? Authorizing Provider aspirin 81 MG EC tablet Take 81 mg by mouth daily. Yes Historical Provider, Brilinta 90 MG tablet TAKE 1 TABLET BY MOUTH TWICE DAILY for blood thinner 02/10/22 Yes Historical Provider, hydrocortisone (Cortef) 10 MG tablet TAKE 2 TABLETS BY MOUTH at 7 (SEVEN) a.m. and TAKE 1 TABLET BYMOUTH at 7 (SEVEN) p.m. 03/01/22 Yes Historical Provider, hydrocortisone (Cortef) 20 MG tablet Take 20 mg by mouth daily. Yes Historical Provider, lisinopril 2.5 MG tablet Take 2.5 mg by mouth daily. 03/01/22 Yes Historical Provider, LORazepam (Ativan) 1 MG tablet Take 1 mg by mouth. Yes Historical Provider, metoprolol tartrate (Lopressor) 25 MG tablet 03/15/22 Yes Historical Provider, MD Robison SureClick 140 MG/ML injection INJECT 140 MG SUBCUTANEOUSLY EVERY 2 WEEKS 02/14/22 Yes Historical Provider, cilostazol (Pletal) 50 MG tablet Take 1 tablet (50 mg) by mouth 2 times daily. Patient not taking: Reported on 04/20/2022 03/16/22 04/20/22 Simi Castillo PA-C lisinopril 2.5 MG tablet Take 2.5 mg by mouth daily. Historical Provider, Allergies: Atorvastatin, Hydrocodone, and Oxycodone Social History Socioeconomic History Marital status: Spouse name: Not on file Number of children: Not on file Years of education: Not on file Highest education level: Not on file Occupational History Not on file Tobacco Use Smoking status: Every Day Packs/day: 0.50 Types: Cigarettes Start date: 02/15/1972 Smokeless tobacco: Never Substance and Sexual Activity Alcohol use: Never Drug use: Never Sexual activity: Not on file Other Topics Concern Not on file Social History Narrative Not on file Social Determinants of Health Financial Resource Strain: Not on file Food Insecurity: Not on file Transportation Needs: Not on file Physical Activity: Not on file Stress: Not on file Social Connections: Not on file Intimate Partner Violence: Not on file Housing Stability: Not on file Family History Problem Relation Name Age of Onset High Blood Pressure Mother Alcohol abuse Father Other ([id number]) Mother Cerebral Vascular Accident Heart disease Mother Review of Systems HENT: Negative. Negative for hearing loss, trouble swallowing and voice change. Eyes: Negative. Negative for pain, redness and visual disturbance. Respiratory: Positive for shortness of breath (COPD). Negative for apnea, chest tightness and wheezing. Cardiovascular: Negative. Negative for chest pain, palpitations and leg swelling. Gastrointestinal: Negative. Negative for anal bleeding and blood in stool. Genitourinary: Negative. Negative for difficulty urinating and hematuria. Musculoskeletal: Negative. Negative for gait problem, neck pain and neck stiffness. Neurological: Negative. Negative for dizziness, syncope, light-headedness and numbness. LABS: Lab Results Component Value Date CREATININE 0.70 08/22/2020 No results found for: WBC, HGB, HCT, MCV, PLT No results found for: INR, PROTIME No results found for: VLDL Physical Exam Vitals reviewed. HENT: Head: Normocephalic and atraumatic. Eyes: Extraocular Movements: Extraocular movements intact. Neck: Vascular: Carotid bruit present. Cardiovascular: Rate and Rhythm: Normal rate and regular rhythm. Pulses: Carotid pulses are 2+ on the right side and 2+ on the left side. Radial pulses are 2+ on the right side and 2+ on the left side. Dorsalis pedis pulses are detected w/ Doppler on the right side and detected w/ Doppler on the leftside. Posterior tibial pulses are detected w/ Doppler on the right side and detected w/ Doppler on the left side. Heart sounds: Normal heart sounds. Pulmonary: Effort: Pulmonary effort is normal. Abdominal: General: Abdomen is flat. Bowel sounds are normal. There is no abdominal bruit. Palpations: Abdomen is soft. There is no pulsatile mass. Tenderness: There is no abdominal tenderness. Musculoskeletal: Cervical back: Neck supple. Right lower leg: No edema. Left lower leg: No edema. Right foot: Normal range of motion. Left foot: Normal range of motion. Feet: Right foot: Skin integrity: Skin integrity normal. No ulcer, blister or skin breakdown. Toenail Condition: Fungal disease present. Left foot: Skin integrity: No ulcer, blister or skin breakdown. Toenail Condition: Fungal disease present. Skin: General: Skin is warm and dry. Neurological: General: No focal deficit present. Mental Status: She is alert and oriented to person, place, and time. GCS: GCS eye subscore is 4. GCS verbal subscore is 5. GCS motor subscore is 6. Sensory: Sensation is intact. Motor: Motor function is intact. Psychiatric: Mood and Affect: Mood normal. Behavior: Behavior normal. Thought Content: Thought content normal. Judgment: Judgment normal. IMPRESSION/RECOMMENDATIONS: Problem List Items Addressed This Visit None Visit Diagnoses Atherosclerosis of [place] arteries of extremities with intermittent claudication, bilateral legs (HCC) - Primary Relevant Medications cilostazol (Pletal) 50 MG tablet Asymptomatic bilateral carotid artery stenosis Relevant Orders Vascular US carotid artery duplex bilateral Plan: PAD -Patient does not want testing on lower extremities due to cost. -Her symptoms have remained stable over the last year, claudication is not life limiting. NO limb threatening symptoms. -Continue 50 mg Pletal BID, ASA, and Brilinta -I discussed with patient importance of smoking cessation and negative impact of nicotine on vascular health. -I encouraged her to walk 5 days a week for 30 minutes when possible. -I educated her on signs and symptoms of chronic/acute limb ischemia. She knows to call office withany pain at rest or nonhealing ulceration on foot. Carotid stenosis -I discussed with patient importance of following carotid disease due to risk of stroke. -She is on Repatha and ASA and Brilinta -I recommended carotid duplex. She plans to call insurance to determine cost of testing. -We will touch base with her next week to see if she would like testing completed. Follow up in about 1 year (around 04/21/2023). . documented in this [facility]01-30-2023 Telephone encounter Note* Telephone Encounter - Remedios Nicholas LPN - 03/15/2022 3:46 PM EST Patient would feel much better if we still follow her. OV scheduled 03/23/22 in [place]; PVD follow up/PAD [id number] Miscellaneous Notes* Telephone Encounter - Remedios Nicholas LPN - 03/15/2022 3:46 PM EST Patient would feel much better if we still follow her. OV scheduled 03/23/22 in [place]; PVD follow up/PAD check * Telephone Encounter - Remedios Nicholas LPN - 03/15/2022 11:08 AM EST Last Office Visit: 01/12/2021 Medication Requested: Cilostazol Quantity: 90 days Prescribing Provider: Simi Castillo PA-C Pharmacy Confirmed? Yes Order Pending? yes Other Comments: Spoke to patient; states she has no concerns regarding her legs and is asymptomatic. Explained thatshe is overdue for a PVR/OV. States she lives strictly off of social security and cannot afford theco-pays that are required for testing and that Medicare/[place] does not cover much of the testing. E xplained that at least an OV is required to keep the refills and possibly PCP taking over the prescription. Just wanted to see your thoughts before scheduling an OV with us; should she follow up with us as she is willing, or have PCP take over? documented in this [facility]SL[facility] [id number] Telephone encounter Note* Telephone Encounter - Remedios Nicholas LPN - 03/15/2022 11:08 AM EST Last Office Visit: 01/12/2021 Medication Requested: Cilostazol Quantity: 90 days Prescribing Provider: Simi Castillo PA-C Pharmacy Confirmed? Yes Order Pending? yes Other Comments: Spoke to patient; states she has no concerns regarding her legs and is asymptomatic. Explained thatshe is overdue for a PVR/OV. States she lives strictly off of social security and cannot afford theco-pays that are required for testing and that Medicare/[place] does not cover much of the testing. E xplained that at least an OV is required to keep the refills and possibly PCP taking over the prescription. Just wanted to see your thoughts before scheduling an OV with us; should she follow up with us as she is willing, or have PCP take over? [facility] [id number] Miscellaneous Notes* Telephone Encounter - Eliud Maya MD - 03/01/2022 12:13 PM EST Patient's request for medication is as follows Requested Prescriptions Signed Prescriptions Disp Refills hydrocortisone (CORTEF) 10 mg tablet 90 tablet 5 Simg orally 7 AM & 10mg orally 7 PM. Authorizing Provider: ELIUD MAYA Order entered - please phone pharmacy and notify patient. Eliud Maya MD * Telephone Encounter - Kayal Gibson - 03/01/2022 8:41 AM EST Patient has been identified by name and [...] Thank you. Kayla Gibson [facility] History of Present illness Narrative* Eliud Maya MD - 01/13/2022 3:11 PM EST PATIENT NAME: Jonelle Coronado. CLINIC NO: [id number]. ATTENDING PHYSICIAN: Eliud Maya MD. DATE OF [...] angina, CHF, cardiac arrhythmia, TIA stroke or PAD.She has had a CABG in September 2013 and had no problems cardiovascular-wiise. She is also taking aspirin and Plavix. Patient was recently discharged from the hospital for acute pancreatitis. Patient has no history ofalcohol abuse, or gallstone. Patient has a 5 pound weight loss in the last 2 months, she has chronic nonproductive cough no hemoptysis or shortness of breath. Her performance status remained stable. Pérez clark has no headaches or neurological symptom. CT-guided [...] Abs Lymph 1.00 - 4.00 k/uL 3.51 [place]% % 7.1 Abs [place] <0.87 k/uL 0.86 Eosin% % 2.1 Abs [...] complete remission, but she still has secondary adrenalinsufficiency 4. COPD /emphysema & tobacco addiction. 5. [...] updated as necessary. Eliud Maya MD Cc: Harvey Chow MD documented [facility] History of Present illness Narrative* Senia Ponce RT(Areyl) - 01/13/2022 2:30 PM EST Radiology Service Progress Note PATIENT NAME: Jonelle Coronado DATE OF SERVICE: January 13, 2022 TIME: 2:29 PM PATIENT IDENTITY VERIFICATION COMPLETED USING TWO (2) IDENTIFIERS: Name and Date of confirmedby patient verbally. FALL SCREENING: Has the patient [...] Not applicable SIGNED BY: RT Radha(Arely) January 13, 2022 2:29 PM documented in this [facility]07-[facility]-2022 Miscellaneous Notes* Telephone Encounter - Eliud Maya MD - 09/07/2021 11:33 AM EDT Patient's request for medication is as follows Signed Prescriptions Disp Refills hydrocortisone (CORTEF) 10 mg tablet 90 tablet 5 Simg orally 7 AM & 10mg orally 7 PM. SABINE: No Authorizing Provider: ELIUD MAYA Order entered - please phone pharmacy and notify patient. Eliud Maya MD * Telephone Encounter - Carmen Juan - 09/07/2021 8:51 AM EDT Patient has been identified by name and [...] SABINE: No Please review and advise. Carmen Juan documented [facility] this [facility] History of Present illness Narrative* Eliud Maya MD - 07/14/2021 10:47 AM EDT PATIENT NAME: Jonelle Coronado. CLINIC NO: [id number]. ATTENDING PHYSICIAN: Eliud Maya MD. DATE OF [...] both demonstrated signal dropout on opposed phase imagingwhich define lipid rich adenomas A Chest CT [...] angina, CHF, cardiac arrhythmia, TIA stroke or PAD.She has had a CABG in September 2013 and had no problems cardiovascular-wiise. She is also taking aspirin and Plavix. Patient was recently discharged from the hospital for acute pancreatitis. Patient has no history ofalcohol abuse, or gallstone. Patient has a 5 pound weight loss in the last 2 months, she has chronic nonproductive cough no hemoptysis or shortness of breath. Her performance status remained stable. P amber has no headaches or neurological symptom. CT-guided [...] Abs Lymph 1.00 - 4.00 k/uL 2.74 [place]% % 5.3 Abs [place] <0.87 k/uL 0.73 Eosin% % 1.7 Abs [...] updated as necessary. Eliud Maya MD Cc: Harvey Chow MD documented in this encounter[facility]05-[facility]22 History of Present illness Narrative* RT Abel(R) - 07/09/2021 11:00 AM EDT Radiology Service Progress Note DATE OF SERVICE: [...] creatinine assay has traceable calibration to isotope dilution- mass spectrometry. Refer to KDIGO guidelines for clinical interpretation. In patients with unstable renal function, e.g. those with acute kidney injury, the eGFRmay not accurately reflect actual GFR. eGFR- Date [...] 2021 TIME: 12:22 PM documented in this encounter[address]15-2015 History of Past illness Narrative* Problem Noted Date Resolved Date Lung cancer, hilus 08/28/2014 12/16/2014 Lung mass 08/28/2014 09/12/2014 documented as of this encounter (statuses as of 07/10/2021) [address]15-2015 History of Past illness Narrative* Problem Noted Date Resolved Date Lung cancer, hilus 08/28/2014 12/16/2014 Lung mass 08/28/2014 09/12/2014 documented as of this encounter (statuses as of 07/15/2021) [address]15-2015 History of Past illness Narrative* Problem Noted Date Resolved Date Lung cancer, hilus 08/28/2014 12/16/2014 Lung mass 08/28/2014 09/12/2014 documented as of this encounter (statuses as of 09/07/2021) [address]-2015 History of Past illness Narrative* Problem Noted Date Resolved Date Lung cancer, hilus 08/28/2014 12/16/2014 Lung mass 08/28/2014 09/12/2014 documented as of this encounter (statuses as of 01/14/2022) [address]15-2015 History of Past illness Narrative* Problem Noted Date Resolved Date Lung cancer, hilus 08/28/2014 12/16/2014 Lung mass 08/28/2014 09/12/2014 documented as of this encounter (statuses as of 03/01/2022) [address]15-2015 History of Past illness Narrative* Problem Noted Date Resolved Date Lung cancer, hilus 08/28/2014 12/16/2014 Lung mass 08/28/2014 09/12/2014 documented as of this encounter (statuses as of 07/19/2022) [address]-2015 History of Past illness Narrative* Problem Noted Date Resolved Date Lung cancer, hilus 08/28/2014 12/16/2014 Lung mass 08/28/2014 09/12/2014 documented as of this encounter (statuses as of 07/19/2022) [address]-2015 History of Past illness Narrative* Problem Noted Date Resolved Date Lung cancer, hilus 08/28/2014 12/16/2014 Lung mass 08/28/2014 09/12/2014 documented as of this encounter (statuses as of 07/20/2022) [address]2015 History of Past illness Narrative* Problem Noted Date Diagnosed Date Resolved Date Lung cancer, hilus 08/28/2014 5 Lung mass 08/28/2014 09/12/2014 documented as of this encounter (statuses as of 08/31/2022) [address]2015 History of Past illness Narrative* Problem Noted Date Diagnosed Date Resolved Date Lung cancer, hilus 08/28/2014 5 Lung mass 08/28/2014 09/12/2014 documented as of this encounter (statuses as of 12/19/2022) [facility] History of Past illness Narrative* Problem Noted Date Diagnosed Date Resolved Date Lung cancer, hilus 08/28/2014 5 Lung mass 08/28/2014 09/12/2014 documented as of this encounter (statuses as of 12/19/2022) [address]2015 History of Past illness Narrative* Problem Noted Date Diagnosed Date Resolved Date Lung cancer, hilus 08/28/2014 5 Lung mass 08/28/2014 09/12/2014 documented as of this encounter (statuses as of 01/26/2023) [address]2015 History of Past illness Narrative* Problem Noted Date Diagnosed Date Resolved Date Lung cancer, hilus 08/28/2014 5 Lung mass 08/28/2014 09/12/2014 documented as of this encounter (statuses as of 01/26/2023) [facility]* Diagnosis Atherosclerosis of [place] arteries of extremities with intermittent claudication, bilateral legs (HCC) documented in this encounter [employer] Work Phone: Evaluation note* Diagnosis Atherosclerosis of [place] arteries of extremities with intermittent claudication, bilateral legs (HCC) documented in this encounter [employer] Work Phone: Evaluation note* Diagnosis Onset Date Resolution Status Acute pharyngitis acute Low back pain acute Cardiomyopathy acute Essential hypertension acute PAD (peripheral artery disease) acute Torsades de pointes acute Aortocoronary bypass status September, chronic Atherosclerotic heart diseas e of [place] coronary artery without angina pectoris chronic Hyperlipidemia chronic Presence of stent in coronary artery January, [facility] Work Phone: Evaluation note* Diagnosis Malignant neoplasm of unspecified part of unspecified bronchus or lung (HCC) Adrenal insufficiency (HCC) 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, 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) documented [facility] this encounter [facility]* Diagnosis Adrenal insufficiency (HCC)- Primary 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, 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) [facility] Diagnosis 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, unspecified laterality (HCC) Malaise and fatigue Other malaise and fatigue Adrenal insufficiency (HCC) Glucocorticoid deficiency [facility] Diagnosis Malignant neoplasm of unspecified part of unspecified bronchus or lung (HCC)- Primary 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, unspecified laterality (HCC) [facility]* Diagnosis 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, unspecified laterality (HCC) Malaise and fatigue Other malaise and fatigue Adrenal insufficiency (HCC) Glucocorticoid deficiency [facility]* Diagnosis Onset Date Resolution Status Cardiomyopathy acute Carotid stenosis acute Essential hypertension acute PAD (peripheral artery disease) acute [place] pointes acute Atherosclerotic heart diseas e of [place] coronary artery without angina pectoris chronic Hyperlipidemia [facility] Work Phone: Evaluation note* Diagnosis Malignant neoplasm of unspecified part of unspecified bronchus or lung (HCC)- Primary [facility]* Diagnosis 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, unspecified laterality (HCC) Malaise and fatigue Other malaise and fatigue Adrenal insufficiency (HCC) Glucocorticoid deficiency [facility] Diagnosis Malignant neoplasm of unspecified part of unspecified bronchus or lung (HCC) 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, unspecified laterality (HCC) [facility]* Diagnosis Malignant neoplasm of unspecified part of unspecified bronchus or lung (HCC)- Primary [facility] encounter [facility]* Diagnosis 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, unspecified laterality (HCC) [facility]* Diagnosis Onset Date Resolution Status Cardiomyopathy acute Carotid stenosis acute Essential hypertension acute PAD (peripheral artery disease) acute Torsades de pointes acute Atherosclerotic heart diseas e of [place] coronary artery without angina pectoris chronic Hyperlipidemia chronic Acute hypercapnic respiratory failure acute Acute metabolic encephalopathy acute Acute respiratory failure ac [place] Elevated troponin I level ac [place] Hypoxia acute RSV bronchitis acute Secondary bacterial pneumonia acute Sepsis acute Urinary tract infection acut e COPD exacerbation chronic [facility] Work Phone: Evaluation note* Diagnosis Onset Date Resolution Status Cardiomyopathy acute Carotid stenosis acute Essential hypertension acute PAD (peripheral artery disease) acute [place]orsades de pointes acute Atherosclerotic heart diseas e of [place] coronary artery without angina pectoris chronic Hyperlipidemia chronic Acute hypercapnic respiratory failure acute Acute metabolic encephalopathy acute Acute respiratory failure ac [place] Cardiomyopathy acute Elevated troponin I level ac [place] Essential hypertension acute Hypoxia acute PAD (peripheral artery disease) acute RSV bronchitis acute Secondary bacterial pneumonia acute Sepsis acute Urinary tract infection acut e Aortocoronary bypass status September, chronic Hyperlipidemia chronic Presence of stent in coronary artery January, chronic Tobacco abuse [facility] Work Phone: Evaluation note* Diagnosis Onset Date Resolution Status Cardiomyopathy acute Carotid stenosis acute Essential hypertension acute PAD (peripheral artery disease) acute [place] pointes acute Atherosclerotic heart diseas e of [place] coronary artery without angina pectoris chronic Hyperlipidemia chronic Acute hypercapnic respiratory failure acute Acute metabolic encephalopathy acute Acute respiratory failure ac [place] Cardiomyopathy acute Elevated troponin I level ac [place] Essential hypertension acute Hypoxia acute PAD (peripheral artery disease) acute RSV bronchitis acute Secondary bacterial pneumonia acute Aortocoronary bypass status September, chronic Hyperlipidemia chronic Presence of stent in coronary artery January, chronic Tobacco abuse chronic Sepsis resolved Urinary tract infection reso lved Cardiomyopathy acute Carotid stenosis acute Essential hypertension acute PAD (peripheral artery disease) acute [place] de pointes acute Atherosclerotic heart diseas e of [place] coronary artery without angina pectoris chronic Hyperlipidemia [facility] Work Phone: Evaluation note* Diagnosis Onset Date Resolution Status Cardiomyopathy acute Carotid stenosis acute Essential hypertension acute PAD (peripheral artery disease) acute [place] point[place] acute Atherosclerotic heart diseas e of [place] coronary artery without angina pectoris chronic Hyperlipidemia chronic Acute hypercapnic respiratory failure acute Acute metabolic encephalopathy acute Acute respiratory failure ac [place] Cardiomyopathy acute Elevated troponin I level ac [place] Essential hypertension acute Hypoxia acute PAD (peripheral artery disease) acute RSV bronchitis acute Secondary bacterial pneumonia acute Aortocoronary bypass status September, chronic Hyperlipidemia chronic Presence of stent in coronary artery April, chronic Tobacco abuse chronic Sepsis resolved Urinary tract infection reso lved Cardiomyopathy acute Carotid stenosis acute Essential hypertension acute PAD (peripheral artery disease) acute [place]ades de pointes acute Atherosclerotic heart diseas e of [place] coronary artery without angina pectoris chronic Hyperlipidemia [facility] Work Phone: Evaluation note* Diagnosis Onset Date Resolution Status Acute hypercapnic respiratory failure acute Acute metabolic encephalopathy acute Acute respiratory failure ac [place] Cardiomyopathy acute Elevated troponin I level ac [place] Essential hypertension acute Hypoxia acute PAD (peripheral artery disease) acute RSV bronchitis acute Secondary bacterial pneumonia acute Aortocoronary bypass status September, chronic Hyperlipidemia chronic Presence of stent in coronary artery April, chronic Tobacco abuse chronic Sepsis resolved Urinary tract infection reso lved Cardiomyopathy acute Carotid stenosis acute Essential hypertension acute PAD (peripheral artery disease) acute Torsades de pointes acute Atherosclerotic heart diseas e of [place] coronary artery without angina pectoris chronic Hyperlipidemia chronic Cardiomyopathy acute Carotid stenosis acute GUERRA (dyspnea on exertion) ac [place] Essential hypertension acute PAD (peripheral artery disease) acute [place] pointes acute Atherosclerotic heart diseas e of [place] coronary artery without angina pectoris chronic Hyperlipidemia [facility] Work Phone: Evaluation note* Diagnosis Onset Date Resolution Status Cardiomyopathy acute Carotid stenosis acute Essential hypertension acute PAD (peripheral artery disease) acute [place] point[place] acute Atherosclerotic heart diseas e of [place] coronary artery without angina pectoris chronic Hyperlipidemia chronic Cardiomyopathy acute Carotid stenosis acute GUERRA (dyspnea on exertion) ac [place] Essential hypertension acute PAD (peripheral artery disease) acute [place] pointes acute Atherosclerotic heart diseas e of [place] coronary artery without angina pectoris chronic Hyperlipidemia [facility] Work Phone: Evaluation note* Diagnosis Malignant neoplasm of unspecified part of unspecified bronchus or lung (HCC) documented in [facility] encounter [facility]* Diagnosis 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, unspecified laterality (HCC) Adrenal insufficiency (HCC) Glucocorticoid deficiency Malignant 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) documented in this encounter [facility] note* Diagnosis Atherosclerosis of [place] arteries of extremities with intermittent claudication, bilateral legs (HCC)- Primary Asymptomatic bilateral carotid artery stenosis documented in this encounter [facility] note* Diagnosis Asymptomatic bilateral carotid artery stenosis documented in this encounter [facility] note* Diagnosis Asymptomatic bilateral carotid artery stenosis- Primary documented in this encounter [facility] note* Diagnosis 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, unspecified laterality (HCC) Malaise and fatigue Other malaise and fatigue Adrenal insufficiency (HCC) Glucocorticoid deficiency documented in this encounter [facility] note* Diagnosis 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, unspecified laterality (HCC) Malaise and fatigue Other malaise and fatigue Adrenal insufficiency (HCC) Glucocorticoid deficiency documented in this encounter [facility] Discharge instructionsAmbulatory Orders* Phase II, Outpatient Cardiac Rehab Location: None Selected [facility] Work Phone: Summary Purpose Family History Relationship Condition Age at Onset Recorded Date/T harmony mother Cardiac disease Unknown Hypertension Unknown Cerebrovascular accident (CVA) Unknown Advance Directives Advance Directive Response Recorded Date/ Time Advance Directives Yes March 22, 2015 3:09pm Living Will No February 24 3:47pm Power of Engine Manager No February 25, 2020 3:47pm Advance Directive Response Recorded Date/ Time Advance Directives Yes March 22, 2015 3:09pm Living Will No July 19, 2022 1 1:14am Power of Engine Manager No July 19, 2022 11:14am Advance Directive Response Recorded Date/ Time Advance Directives Yes March 22, 2015 2:09pm Living Will No February 04, 023 3:03am Power of Engine Manager No February 04, 2023 3:03am Advance Directive Response Recorded Date/ Time Advance Directives Yes March 22, 2015 2:09pm Living Will No February 04, 023 7:40am Power of Engine Manager No February 04, 2023 7:40am Advance Directive Response Recorded Date/ Time Advance Directives No April 28 024 7:37am Living Will No April 29, 2023 7:37am Power of Engine Manager No April 28 7:37am Reason for Referral Status Reason Specialty Diagnoses / Procedures Referre d By Contact Referred To Contact Closed Radiology Diagnoses Atherosclerosis of [place] arteries of extremities with intermittent claudication, bilateral legs (HCC) Procedures CTA ABDOMINAL AORTA W BILAT RUNOFF W WO CONTRAST Jessica Tellez MD [address] [facility] [address] [place] [address] Specialty Diagnoses / Procedures Referred By Contac t Referred To Contact CT IMAGING Diagnoses Malignant neoplasm of unspecified part of unspecified bronchus or lung (HCC) Adrenal insufficiency (HCC) 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, 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) Procedures CT CHEST W IVCON CAT SCAN OF CHEST CONTRAST Eliud Maya MD [address] [place] [address] Ct Imaging Referral ID Status Reason Start Date Expiration Date V isits Requested Visits Authorized [id number] Closed Auto-Generate d Referral 07/09/2021 02/14/2022 1 1 Specialty Diagnoses / Procedures Referred By Contac t Referred To Contact CT IMAGING Diagnoses Malignant neoplasm of unspecified part of unspecified bronchus or lung (HCC) 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, unspecified laterality (HCC) Procedures CT CHEST WO IVCON DIAGNOSTIC COMPUTED TOMOGRAPHY THORAX W/O CNTRST Eliud Maya MD [address] [place] [address] Ct Imaging Referral ID Status Reason Start Date Expiration Date Visits Requested Visits Authorized [id number] Authorized Auto-Generat ed Referral 07/13/2022 02/12/2023 1 1 Specialty Diagnoses / Procedures Referred By Contac t Referred To Contact CT IMAGING Diagnoses Malignant neoplasm of unspecified part of unspecified bronchus or lung (HCC) 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, unspecified laterality (HCC) Procedures CT CHEST WO IVCON DIAGNOSTIC COMPUTED TOMOGRAPHY THORAX W/O CNTRST Eliud Maya MD [address] [place] [address] [place] [address] Referral ID Status Reason Start Date Expiration Date V isits Requested Visits Authorized [id number] Closed Auto-Generate d Referral 07/13/2022 02/12/2023 1 1 Specialty Diagnoses / Procedures Referred By Contac t Referred To Contact CT IMAGING Diagnoses Malignant neoplasm of unspecified part of unspecified bronchus or lung (HCC) Procedures CT CHEST WO IVCON DIAGNOSTIC COMPUTED TOMOGRAPHY THORAX W/[place] [address] [place] [address] [place] [address] Referral ID Status Reason Start Date Expiration Date Visits Requested Visits Authorized [id number] Authorized Auto-Generat ed Referral 07/27/2023 02/24/2024 1 1 Specialty Diagnoses / Procedures Referred By Sukumar t Referred To Contact Cardiology Diagnoses Asymptomatic bilateral carotid artery stenosis Procedures Vascular US carotid artery duplex bilateral Simi Castillo PA-C [address] [place] [address] Referral ID Status Reason Start Date Expiration Date Visits Requested Visits Authorized [id number] Pending Review Perform Procedure 04/20/2022 10/17/2022 1 1 Referral ID Status Reason Start Date Expiration Date Visits Requested Visits Authorized [id number] Pending Review Perform Procedure 04/28/2022 10/25/2022 1 1 Chief Complaint and Reason for Visit Chief Complaint CAD/ASHD CHEST PAIN CHEST PAIN TRANSIENT AV BLOCK TRANSIENT AV BLOCK SWOLLEN GLANDS/BACK PAIN 10 m fu BACK Reason for Visit Acute pharyngitis Low back pain Cardiomyopathy Essential hypertension PAD (peripheral artery disease) Torsades de pointes Aortocoronary bypass status Atherosclerotic heart disease of [place] coronary artery without angina pectoris Hyperlipidemia Presence of stent in coronary artery Chief Complaint 6 m fu EORDERS RIGHT WRIST INJURY Reason for Visit Cardiomyopathy Carotid stenosis Essential hypertension PAD (peripheral artery disease) Torsades de pointes Atherosclerotic heart disease of [place] coronary artery without angina pectoris Hyperlipidemia Chief Complaint 6 M FU SHORTNESS OF BREATH Shortness of breath SEVERE ACUTE RSV PNEUMONITIS WITH BACTERIAL Reason for Visit Cardiomyopathy Carotid stenosis Essential hypertension PAD (peripheral artery disease) [place]orsades [place] pointes Atherosclerotic heart disease of [place] coronary artery without angina pectoris Hyperlipidemia Acute hypercapnic respiratory failure Acute metabolic encephalopathy Acute respiratory failure Elevated troponin I level Hypoxia RSV bronchitis Secondary bacterial pneumonia Sepsis Urinary tract infection COPD exacerbation Chief Complaint 6 M FU SHORTNESS OF BREATH Shortness of breath SEVERE ACUTE RSV PNEUMONITIS WITH BACTERIAL SEVERE ACUTE RSV PNEUMONITIS WITH BACTERIAL SEVERE ACUTE RSV PNEUMONITIS WITH BACTERIAL SEVERE ACUTE RSV PNEUMONITIS WITH BACTERIAL SEVERE ACUTE RSV PNEUMONITIS WITH BACTERIAL SEVERE ACUTE RSV PNEUMONITIS WITH BACTERIAL SEVERE ACUTE RSV PNEUMONITIS WITH BACTERIAL SEVERE ACUTE RSV PNEUMONITIS WITH BACTERIAL SEVERE ACUTE RSV PNEUMONITIS WITH BACTERIAL SEVERE ACUTE RSV PNEUMONITIS WITH BACTERIAL SEVERE ACUTE RSV PNEUMONITIS WITH BACTERIAL SEVERE ACUTE RSV PNEUMONITIS WITH BACTERIAL SEVERE ACUTE RSV PNEUMONITIS WITH BACTERIAL SEVERE ACUTE RSV PNEUMONITIS WITH BACTERIAL SEVERE ACUTE RSV PNEUMONITIS WITH BACTERIAL SEVERE ACUTE RSV PNEUMONITIS WITH BACTERIAL Reason for Visit Cardiomyopathy Carotid stenosis Essential hypertension PAD (peripheral artery disease) [place]orsades de pointes Atherosclerotic heart disease of [place] coronary artery without angina pectoris Hyperlipidemia Acute hypercapnic respiratory failure Acute metabolic encephalopathy Acute respiratory failure Cardiomyopathy Elevated troponin I level Essential hypertension Hypoxia PAD (peripheral artery disease) RSV bronchitis Secondary bacterial pneumonia Sepsis Urinary tract infection Aortocoronary bypass status Hyperlipidemia Presence of stent in coronary artery Tobacco abuse Chief Complaint 6 M FU SHORTNESS OF BREATH Shortness of breath SEVERE ACUTE RSV PNEUMONITIS WITH BACTERIAL SEVERE ACUTE RSV PNEUMONITIS WITH BACTERIAL SEVERE ACUTE RSV PNEUMONITIS WITH BACTERIAL SEVERE ACUTE RSV PNEUMONITIS WITH BACTERIAL SEVERE ACUTE RSV PNEUMONITIS WITH BACTERIAL SEVERE ACUTE RSV PNEUMONITIS WITH BACTERIAL SEVERE ACUTE RSV PNEUMONITIS WITH BACTERIAL SEVERE ACUTE RSV PNEUMONITIS WITH BACTERIAL SEVERE ACUTE RSV PNEUMONITIS WITH BACTERIAL SEVERE ACUTE RSV PNEUMONITIS WITH BACTERIAL SEVERE ACUTE RSV PNEUMONITIS WITH BACTERIAL SEVERE ACUTE RSV PNEUMONITIS WITH BACTERIAL SEVERE ACUTE RSV PNEUMONITIS WITH BACTERIAL SEVERE ACUTE RSV PNEUMONITIS WITH BACTERIAL SEVERE ACUTE RSV PNEUMONITIS WITH BACTERIAL SEVERE ACUTE RSV PNEUMONITIS WITH BACTERIAL S/P [facility] 02/08 POSS C? CARDIOMYOPATHY, CAD CARDIOMYOPATHY, CAD Reason for Visit Cardiomyopathy Carotid stenosis Essential hypertension PAD (peripheral artery disease) Torsades de pointes Atherosclerotic heart disease of [place] coronary artery without angina pectoris Hyperlipidemia Acute hypercapnic respiratory failure Acute metabolic encephalopathy Acute respiratory failure Cardiomyopathy Elevated troponin I level Essential hypertension Hypoxia PAD (peripheral artery disease) RSV bronchitis Secondary bacterial pneumonia Aortocoronary bypass status Hyperlipidemia Presence of stent in coronary artery Tobacco abuse Sepsis Urinary tract infection Cardiomyopathy Carotid stenosis Essential hypertension PAD (peripheral artery disease) [place]orsades de pointes Atherosclerotic heart disease of [place] coronary artery without angina pectoris Hyperlipidemia Chief Complaint 6 M FU SHORTNESS OF BREATH Shortness of breath SEVERE ACUTE RSV PNEUMONITIS WITH BACTERIAL SEVERE ACUTE RSV PNEUMONITIS WITH BACTERIAL SEVERE ACUTE RSV PNEUMONITIS WITH BACTERIAL SEVERE ACUTE RSV PNEUMONITIS WITH BACTERIAL SEVERE ACUTE RSV PNEUMONITIS WITH BACTERIAL SEVERE ACUTE RSV PNEUMONITIS WITH BACTERIAL SEVERE ACUTE RSV PNEUMONITIS WITH BACTERIAL SEVERE ACUTE RSV PNEUMONITIS WITH BACTERIAL SEVERE ACUTE RSV PNEUMONITIS WITH BACTERIAL SEVERE ACUTE RSV PNEUMONITIS WITH BACTERIAL SEVERE ACUTE RSV PNEUMONITIS WITH BACTERIAL SEVERE ACUTE RSV PNEUMONITIS WITH BACTERIAL SEVERE ACUTE RSV PNEUMONITIS WITH BACTERIAL SEVERE ACUTE RSV PNEUMONITIS WITH BACTERIAL SEVERE ACUTE RSV PNEUMONITIS WITH BACTERIAL SEVERE ACUTE RSV PNEUMONITIS WITH BACTERIAL S/P [facility] 02/08 POSS [facility]? CARDIOMYOPATHY, CAD CARDIOMYOPATHY, CAD Amb Documentation CAD Amb Documentation Reason for Visit Cardiomyopathy Carotid stenosis Essential hypertension PAD (peripheral artery disease) Torsades de pointes Atherosclerotic heart disease of [place] coronary artery without angina pectoris Hyperlipidemia Acute hypercapnic respiratory failure Acute metabolic encephalopathy Acute respiratory failure Cardiomyopathy Elevated troponin I level Essential hypertension Hypoxia PAD (peripheral artery disease) RSV bronchitis Secondary bacterial pneumonia Aortocoronary bypass status Hyperlipidemia Presence of stent in coronary artery Tobacco abuse Sepsis Urinary tract infection Cardiomyopathy Carotid stenosis Essential hypertension PAD (peripheral artery disease) Torsades de pointes Atherosclerotic heart disease of [place] coronary artery without angina pectoris Hyperlipidemia Chief Complaint SHORTNESS OF BREATH Shortness of breath SEVERE ACUTE RSV PNEUMONITIS WITH BACTERIAL SEVERE ACUTE RSV PNEUMONITIS WITH BACTERIAL SEVERE ACUTE RSV PNEUMONITIS WITH BACTERIAL SEVERE ACUTE RSV PNEUMONITIS WITH BACTERIAL SEVERE ACUTE RSV PNEUMONITIS WITH BACTERIAL SEVERE ACUTE RSV PNEUMONITIS WITH BACTERIAL SEVERE ACUTE RSV PNEUMONITIS WITH BACTERIAL SEVERE ACUTE RSV PNEUMONITIS WITH BACTERIAL SEVERE ACUTE RSV PNEUMONITIS WITH BACTERIAL SEVERE ACUTE RSV PNEUMONITIS WITH BACTERIAL SEVERE ACUTE RSV PNEUMONITIS WITH BACTERIAL SEVERE ACUTE RSV PNEUMONITIS WITH BACTERIAL SEVERE ACUTE RSV PNEUMONITIS WITH BACTERIAL SEVERE ACUTE RSV PNEUMONITIS WITH BACTERIAL SEVERE ACUTE RSV PNEUMONITIS WITH BACTERIAL SEVERE ACUTE RSV PNEUMONITIS WITH BACTERIAL S/P [facility] 02/08 POSS [facility]? CARDIOMYOPATHY, CAD CARDIOMYOPATHY, CAD Amb Documentation CAD Amb Documentation AM EKG S/P [facility] 04/28 S/P [facility] 03 Reason for Visit Acute hypercapnic re spiratory failure Acute metabolic encephalopathy Acute respiratory failure Cardiomyopathy Elevated troponin I level Essential hypertension Hypoxia PAD (peripheral artery disease) RSV bronchitis Secondary bacterial pneumonia Aortocoronary bypass status Hyperlipidemia Presence of stent in coronary artery Tobacco abuse Sepsis Urinary tract infection Cardiomyopathy Carotid stenosis Essential hypertension PAD (peripheral artery disease) Torsades de pointes Atherosclerotic heart disease of [place] coronary artery without angina pectoris Hyperlipidemia Cardiomyopathy Carotid stenosis GUERRA (dyspnea on exertion) Essential hypertension PAD (peripheral artery disease) Torsades de pointes Atherosclerotic heart disease of [place] coronary artery without angina pectoris Hyperlipidemia Chief Complaint SEVERE ACUTE RSV PNE UMONITIS WITH BACTERIAL SEVERE ACUTE RSV PNEUMONITIS WITH BACTERIAL SEVERE ACUTE RSV PNEUMONITIS WITH BACTERIAL SEVERE ACUTE RSV PNEUMONITIS WITH BACTERIAL S/P [facility] 02/08 POSS [facility]? CARDIOMYOPATHY, CAD CARDIOMYOPATHY, CAD Amb Documentation CAD Amb Documentation AM EKG S/P [facility] 0315 S/P [facility] 03/15 R79.89 Other specified abnormal findings of blood Reason for Visit Acute hypercapnic re spiratory failure Acute metabolic encephalopathy Acute respiratory failure Cardiomyopathy Elevated troponin I level Essential hypertension Hypoxia PAD (peripheral artery disease) RSV bronchitis Secondary bacterial pneumonia Aortocoronary bypass status Hyperlipidemia Presence of stent in coronary artery Tobacco abuse Sepsis Urinary tract infection Cardiomyopathy Carotid stenosis Essential hypertension PAD (peripheral artery disease) Torsades de pointes Atherosclerotic heart disease of [place] coronary artery without angina pectoris Hyperlipidemia Cardiomyopathy Carotid stenosis GUERRA (dyspnea on exertion) Essential hypertension PAD (peripheral artery disease) Torsades de pointes Atherosclerotic heart disease of [place] coronary artery without angina pectoris Hyperlipidemia Chief Complaint S/P [facility] 02/08 POSS [facility]? CARDIOMYOPATHY, CAD CARDIOMYOPATHY, CAD Amb Documentation CAD Amb Documentation AM EKG S/P [facility] 04/28 S/P [facility] 04/28 R79.89 Other specified abnormal findings of blood Reason for Visit Cardiomyopathy Carotid stenosis Essential hypertension PAD (peripheral artery disease) Torsades de pointes Atherosclerotic heart disease of [place] coronary artery without angina pectoris Hyperlipidemia Cardiomyopathy Carotid stenosis GUERRA (dyspnea on exertion) Essential hypertension PAD (peripheral artery disease) Torsades de pointes Atherosclerotic heart disease of [place] coronary artery without angina pectoris Hyperlipidemia Additional Source Comments INFORMATION SOURCE (unrecogn ized section and content) DATE CREATED AUTHOR 08/30/2020 [email or web address] DATE CREATED AUTHOR AUTHOR'S ORGANIZ ATION 09/18/2020 [facility] DATE CREATED AUTHOR AUTHOR'S ORGANIZ ATION 05/08/2023 [facility] DATE CREATED AUTHOR AUTHOR'S ORGANIZ ATION 08/02/2023 [facility] DATE CREATED AUTHOR AUTHOR'S ORGANIZ ATION 03/30/2024 [facility] Goals (unrecognized section and content) Goals may be documented in a n alternate sectionGoals may be documented in an alternate sectionGoals may be documented in an alternate section Source Comments (unrecognize d section and content) In the event this informatio n is protected by the Federal Confidentiality of Alcohol and Drug Abuse Patient Records regulations: The Federal rules restrict any use of the information to criminally investigate or prosecute any alcohol or drug abuse patient.[facility] the event this information is protected by the Federal Confidentiality of Alcohol and Drug Abuse Patient Records regulations: The Federal rules restrict any use of the information to criminally investigate or prosecute any alcohol or drug abuse patient.[facility] DaytonIn the event this information is protected by the Federal Confidentiality of Alcohol and Drug Abuse Patient Records regulations: The Federal rules restrict any use of the information to criminally investigate or prosecute any alcohol or drug abuse patient.[facility] DaytonIn the event this information is protected by the Federal Confidentiality of Alcohol and Drug Abuse Patient Records regulations: The Federal rules restrict any use of the information to criminally investigate or prosecute any alcohol or drug abuse patient.[facility] DaytonIn the event this information is protected by the Federal Confidentiality of Alcohol and Drug Abuse Patient Records regulations: The Federal rules restrict any use of the information to criminally investigate or prosecute any alcohol or drug abuse patient.[facility] DaytonIn the event this information is protected by the Federal Confidentiality of Alcohol and Drug Abuse Patient Records regulations: The Federal rules restrict any use of the information to criminally investigate or prosecute any alcohol or drug abuse patient.[facility] DaytonIn the event this information is protected by the Federal Confidentiality of Alcohol and Drug Abuse Patient Records regulations: The Federal rules restrict any use of the information to criminally investigate or prosecute any alcohol or drug abuse patient.[facility] DaytonIn the event this information is protected by the Federal Confidentiality of Alcohol and Drug Abuse Patient Records regulations: The Federal rules restrict any use of the information to criminally investigate or prosecute any alcohol or drug abuse patient.[facility] DaytonIn the event this information is protected by the Federal Confidentiality of Alcohol and Drug Abuse Patient Records regulations: The Federal rules restrict any use of the information to criminally investigate or prosecute any alcohol or drug abuse patient.[facility] DaytonIn the event this information is protected by the Federal Confidentiality of Alcohol and Drug Abuse Patient Records regulations: The Federal rules restrict any use of the information to criminally investigate or prosecute any alcohol or drug abuse patient.[facility] DaytonIn the event this information is protected by the Federal Confidentiality of Alcohol and Drug Abuse Patient Records regulations: The Federal rules restrict any use of the information to criminally investigate or prosecute any alcohol or drug abuse patient.[facility] DaytonIn the event this information is protected by the Federal Confidentiality of Alcohol and Drug Abuse Patient Records regulations: The Federal rules restrict any use of the information to criminally investigate or prosecute any alcohol or drug abuse patient.[facility] DaytonIn the event this information is protected by the Federal Confidentiality of Alcohol and Drug Abuse Patient Records regulations: The Federal rules restrict any use of the information to criminally investigate or prosecute any alcohol or drug abuse patient.[facility] DaytonIn the event this information is protected by the Federal Confidentiality of Alcohol and Drug Abuse Patient Records regulations: The Federal rules restrict any use of the information to criminally investigate or prosecute any alcohol or drug abuse patient.[facility] DaytonIn the event this information is protected by the Federal Confidentiality of Alcohol and Drug Abuse Patient Records regulations: The Federal rules restrict any use of the information to criminally investigate or prosecute any alcohol or drug abuse patient.[facility] DaytonIn the event this information is protected by the Federal Confidentiality of Alcohol and Drug Abuse Patient Records regulations: The Federal rules restrict any use of the information to criminally investigate or prosecute any alcohol or drug abuse patient.[facility] DaytonIn the event this information is protected by the Federal Confidentiality of Alcohol and Drug Abuse Patient Records regulations: The Federal rules restrict any use of the information to criminally investigate or prosecute any alcohol or drug abuse patient.[facility] DaytonIn the event this information is protected by the Federal Confidentiality of Alcohol and Drug Abuse Patient Records regulations: The Federal rules restrict any use of the information to criminally investigate or prosecute any alcohol or drug abuse patient.[facility] DaytonIn the event this information is protected by the Federal Confidentiality of Alcohol and Drug Abuse Patient Records regulations: The Federal rules restrict any use of the information to criminally investigate or prosecute any alcohol or drug abuse patient.[facility] Reason for Visit (unrecogniz ed section and content) Reason Comments Radiology CT Specialty Diagnoses / Procedures Referred By Contac t Referred To Contact CT IMAGING Diagnoses Malignant neoplasm of unspecified part of unspecified bronchus or lung (HCC) Adrenal insufficiency (HCC) 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, 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) Procedures CT CHEST W IVCON CAT SCAN OF CHEST CONTRAST Eliud Maya MD [address] [place] [address] Ct Imaging Referral ID Status Reason Start Date Expiration Date V isits Requested Visits Authorized [id number] Closed Auto-Generate d Referral 07/09/2021 02/14/2022 1 1 Reason Comments Established Patient Reason Comments Refill Request Reason Comments Established Patient Reason Onset Date Comments Refill Request 03/01/2022 Reason Comments Appointment Reason Onset Date Comments Refill Request 08/30/2022 Specialty Diagnoses / Procedures Referred By Contac t Referred To Contact CT IMAGING Diagnoses Malignant neoplasm of unspecified part of unspecified bronchus or lung (HCC) 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, unspecified laterality (HCC) Procedures CT CHEST WO IVCON DIAGNOSTIC COMPUTED TOMOGRAPHY THORAX W/O CNTRST Eliud Maya MD [address] [place] [address] [place] [address] Referral ID Status Reason Start Date Expiration Date V isits Requested Visits Authorized [id number] Closed Auto-Generate d Referral 07/13/2022 02/12/2023 [address] Specialty Diagnoses / Procedures Referred By Contac t Referred To Contact CT IMAGING Diagnoses Malignant neoplasm of unspecified part of unspecified bronchus or lung (HCC) Procedures CT CHEST WO IVCON DIAGNOSTIC COMPUTED TOMOGRAPHY THORAX W/[place] [address] [place] [address] Ct Imaging [facility] Referral ID Status Reason Start Date Expiration Date V isits Requested Visits Authorized [id number] Closed Auto-Generate d Referral 07/27/2023 02/24/2024 1 1 Reason Onset Date Comments Refill Request 09/05/2023 Reason Onset Date Comments Med Refill 03/15/2022 Pletal Reason Comments Follow-up ([facility]) PVD follo w up/PAD check (last seen 2020) Specialty Diagnoses / Procedures Referred By Contac t Referred To Contact Cardiology Diagnoses Asymptomatic bilateral carotid artery stenosis Procedures Vascular US carotid artery duplex bilateral Simi Castillo PA-C [address] [place] [address] Referral ID Status Reason Start Date Expiration Date Visits Requested Visits Authorized [id number] Pending Review Perform Procedure 04/20/2022 10/17/2022 1 1 Reason Onset Date Comments Refill Request 09/03/2024 Care Teams (unrecognized sec tion and content) Jacquard Card Cutter Relationship Specialty Start Date End Date Harvey Chow MD PCP - General Family Practice 06/07/14 Jacquard Card Cutter Relationship Specialty Start Date End Date Harvey Chow MD PCP - General Family Practice 06/07/14 Jacquard Card Cutter Relationship Specialty Start Date End Date Harvey Chow MD PCP - General Family Practice 06/07/14 Jacquard Card Cutter Relationship Specialty Start Date End Date Harvey Chow MD PCP - General Family Medicine 06/07/14 Jacquard Card Cutter Relationship Specialty Start Date End Date Harvey Chow MD PCP - General Family Medicine 06/07/14 Team Status: Active Member Role Status Dates Dr. Harvey Chow MD Family Provider Active Patsy Stafford NP-C Primary Care Provider Active Team Status: Inactive Member Role Status Dates Dr. Harvey Chow MD Primary Care Provider, Referring Provider Active Karime Roblero CLINICAL LAB CLERK, CLINICAL LAB CLERK-C Attending Provider Active Team Status: Inactive Member Role Status Dates Patsy Stafford NP-C Primary Care Provider Active Karime Roblero CLINICAL LAB CLERK, CLINICAL LAB CLERK-C Attending Provider, Referring P rovider Active Team Status: Inactive Member Role Status Dates Patsy Stafford NP-C Primary Care Provider Active Dr. Raheel Yun , DO Emergency Provider Active Jacquard Card Cutter Relationship Specialty Start Date End Date Harvey Chow MD PCP - General Family Medicine 06/07/14 Jacquard Card Cutter Relationship Specialty Start Date End Date Harvey Chow MD PCP - General Family Medicine 06/07/14 Jacquard Card Cutter Relationship Specialty Start Date End Date Harvey Chow MD PCP - General Family Medicine 06/07/14 Jacquard Card Cutter Relationship Specialty Start Date End Date Harvey Chow MD PCP - General Family Medicine 06/07/14 Jacquard Card Cutter Relationship Specialty Start Date End Date Harvey Chow MD PCP - General Family Medicine 06/07/14 Jacquard Card Cutter Relationship Specialty Start Date End Date Harvey Chow MD PCP - General Family Medicine 06/07/14 Jacquard Card Cutter Relationship Specialty Start Date End Date Harvey Chow MD PCP - General Family Medicine 06/07/14 Jacquard Card Cutter Relationship Specialty Start Date End Date Harvey Chow MD PCP - General Family Medicine 06/07/14 Jacquard Card Cutter Relationship Specialty Start Date End Date Harvey Chow MD PCP - General Family Medicine 06/07/14 Team Status: Inactive Member Role Status Dates Dr. Harvey Chow MD Referring Provider Active Karime Roblero CLINICAL LAB CLERK, CLINICAL LAB CLERK-C Attending Provider Active HERSON Matthews Primary Care Provider Active Team Status: Active Member Role Status Dates HERSON Matthews Primary Care Provider Active Dr. Raheel Yun DO Emergency Provider Active Dr. Prince Ortega DO Attending Provider Active Team Status: Inactive Member Role Status Dates Patsy Stafford NP-C Primary Care Provider Active Dr. Keith Howe MD Emergency Provider Active Team Status: Active Member Role Status Dates Patsy Stafford NP-C Primary Care Provider Active Dr. Raheel Yun DO Emergency Provider Active Dr. Prince Ortega DO Admit Provider, Other Provid er Active Dr. Juan Dupree MD Attending Provider Active Team Status: Active Member Role Status Dates Patsy Stafford , CLINICAL LAB CLERK-C Primary Care Provider Active Dr. Raheel Yun , DO Emergency Provider Active Dr. Prince Ortega , DO Admit Provider, Other Provid er Active Dr. Juan Dupree MD Other Provider Active Karime Cota Other Provider Active Dr. Nina Wilson MD Other Provider Active Dr. Eunice Sharma MD Other Provider Active Dr. Cj Rain MD Other Provider Active Dr. Cruz Reynolds MD Other Provider Active Dr. Braeden Nino MD Other Provider Active Dr. Rahul Curtis MD Other Provider Active Dr. Raheel Bradley MD Other Provider Active Dr. Jazmine Smith MD Other Provider Active Dr. Bakari Tan MD Other Provider Active Dr. Montez Lara MD Other Provider Active Dr. Kal Lopez MD Other Provider Active Dr. Nicolette Bullock MD Other Provider Active Dr. Alexy John MD Other Provider Active Dr. Rufus Arreola MD Other Provider Active Dr. Rene Solo MD Other Provider Active Dr. Jovany Castro MD Other Provider Active Eduardo Bermudez CLINICAL LAB CLERK, CLINICAL LAB CLERK-C Other Provider Active Karime Roblero CLINICAL LAB CLERK, CLINICAL LAB CLERK-C Other Provider Active Lisa Irizarry PA, PA Other Provider Active Dr. Wyatt Wyatt MD Attending Provider, Other Provid er Active Dr. Loy Matthew , Other Provider Active Dr. Lori Willson MD Other Provider Active Dr. Federico Al MD Other Provider Active Brigitte Chang CLINICAL LAB CLERK, CLINICAL LAB CLERK-C Other Provider Active Team Status: Active Member Role Status Dates Patsy Stafford , CLINICAL LAB CLERK-C Primary Care Provider Active Dr. Jazmine Smith MD Attending Provider Active Team Status: Active Member Role Status Dates Patsy Stafford , CLINICAL LAB CLERK-C Primary Care Provider Active Dr. Raheel Yun , Emergency Provider Active Dr. Prince Ortega , DO Admit Provider, Other Provid er Active Dr. Juan Dupree MD Attending Provider, Other Provider Active Karime Cota Other Provider Active Dr. Nina Wilson MD Other Provider Active Dr. Eunice Sharma MD Other Provider Active Dr. Cj Rain MD Other Provider Active Dr. Cruz Reynolds MD Other Provider Active Dr. Braeden Nino MD Other Provider Active Dr. Rahul Curtis MD Other Provider Active Dr. Raheel Bradley MD Other Provider Active Dr. Jazmine Smith MD Other Provider Active Dr. Bakari Tan MD Other Provider Active Dr. Montez Lara MD Other Provider Active Dr. Kal Lopez MD Other Provider Active Dr. Nicolette Bullock MD Other Provider Active Dr. Alexy John MD Other Provider Active Dr. Rufus Arreola MD Other Provider Active Dr. Rene Solo MD Other Provider Active Dr. Jovany Castro MD Other Provider Active Eduardo Bermudez CLINICAL LAB CLERK, CLINICAL LAB CLERK-C Other Provider Active Karime Roblero CLINICAL LAB CLERK, CLINICAL LAB CLERK-C Other Provider Active Lisa Irizarry PA, PA Other Provider Active Dr. Wyatt Wyatt MD Other Provider Active Dr. Loy Matthew DO Other Provider Active Dr. Lori Willson MD Other Provider Active Dr. Federico Al MD Other Provider Active Brigitte Chang CLINICAL LAB CLERK, CLINICAL LAB CLERK-C Other Provider Active Team Status: Active Member Role Status Dates Patsy Stafford , CLINICAL LAB CLERK-C Primary Care Provider Active Dr. Raheel Yun , Emergency Provider Active Dr. Prince Ortega , Admit Provider, Other Provid er Active Dr. Juan Dupree MD Other Provider Active Karime Cota Other Provider Active Dr. Nina Wilson MD Other Provider Active Dr. Eunice Sharma MD Other Provider Active Dr. Cj Rain MD Other Provider Active Dr. Cruz Reynolds MD Other Provider Active Dr. Braeden Nino MD Other Provider Active Dr. Rahul Curtis MD Other Provider Active Dr. Raheel Bradley MD Other Provider Active Dr. Jazmine Smith MD Other Provider Active Dr. Bakari Tan MD Other Provider Active Dr. Montez Lara MD Other Provider Active Dr. Kal Lopez MD Other Provider Active Dr. Nicolette Bullock MD Other Provider Active Dr. Alexy John MD Other Provider Active Dr. Rufus Arreola MD Other Provider Active Dr. Rene Solo MD Other Provider Active Dr. Jovany Castro MD Other Provider Active Eduardo Bermudez CLINICAL LAB CLERK, CLINICAL LAB CLERK-C Other Provider Active Karime Roblero CLINICAL LAB CLERK, CLINICAL LAB CLERK-C Other Provider Active Lisa Irizarry PA, PA Attending Provider, Other Provider Active Dr. Wyatt Wyatt MD Other Provider Active Dr. Loy Matthew , Other Provider Active Dr. Lori Willson MD Other Provider Active Dr. Federico Al MD Other Provider Active Brigitte Chang CLINICAL LAB CLERK, CLINICAL LAB CLERK-C Other Provider Active Team Status: Active Member Role Status Dates Patsy Stafford , CLINICAL LAB CLERK-C Primary Care Provider Active Dr. Raheel Sandoval MD Attending Provider Active Team Status: Active Member Role Status Dates Patsy Stafford , CLINICAL LAB CLERK-C Primary Care Provider Active Dr. Raheel Yun , Emergency Provider Active Dr. Prince Ortega DO Admit Provider, Other Provid er Active Dr. Juan Dupree MD Other Provider Active Karime Cota Other Provider Active Dr. Nina Wilson MD Other Provider Active Dr. uEnice Sharma MD Other Provider Active Dr. Cj Rain MD Other Provider Active Dr. Cruz Reynolds MD Other Provider Active Dr. Braeden Nino MD Other Provider Active Dr. Rahul Curtis MD Other Provider Active Dr. Raheel Bradley MD Other Provider Active Dr. Jazmine Smith MD Other Provider Active Dr. Bakari Tan MD Other Provider Active Dr. Montez Lara MD Other Provider Active Dr. Kal Lopez MD Other Provider Active Dr. Nicolette Bullock MD Other Provider Active Dr. Alexy John MD Other Provider Active Dr. Rufus Arreola MD Other Provider Active Dr. Rene Solo MD Other Provider Active Dr. Jovany Castro MD Other Provider Active Eduardo Bermudez CLINICAL LAB CLERK, CLINICAL LAB CLERK-C Other Provider Active Karime Roblero CLINICAL LAB CLERK, CLINICAL LAB CLERK-C Other Provider Active Lisa Irizarry PA, PA Other Provider Active Dr. Wyatt Wyatt MD Other Provider Active Dr. Loy Matthew , Attending Provider, Other Provide r Active Dr. Lori Willson MD Other Provider Active Dr. Federico Al MD Other Provider Active Brigitte Chang CLINICAL LAB CLERK, CLINICAL LAB CLERK-C Other Provider Active Team Status: Active Member Role Status Dates Patsy Stafford , CLINICAL LAB CLERK-C Primary Care Provider Active Dr. Raheel Yun , DO Emergency Provider Active Dr. Prince Ortega , DO Admit Provider, Other Provid er Active Karime Cota Other Provider Active Dr. Nina Wilson MD Other Provider Active Dr. Eunice Sharma MD Other Provider Active Dr. Cj Rain MD Other Provider Active Dr. Cruz Reynolds MD Other Provider Active Dr. Braeden Nino MD Other Provider Active Dr. Rahul Curtis MD Other Provider Active Dr. Raheel Bradley MD Other Provider Active Dr. Jazmine Smith MD Other Provider Active Dr. Bakari Tan MD Other Provider Active Dr. Montez Lara MD Other Provider Active Dr. Kal Lopez MD Other Provider Active Dr. Nicolette Bullock MD Other Provider Active Dr. Alexy John MD Other Provider Active Dr. Rufus Arreola MD Other Provider Active Dr. Rene Solo MD Other Provider Active Dr. Jovany Castro MD Other Provider Active Eduardo Bermudez CLINICAL LAB CLERK, CLINICAL LAB CLERK-C Other Provider Active Karime Roblero CLINICAL LAB CLERK, CLINICAL LAB CLERK-C Other Provider Active Lisa Irizarry PA, PA Other Provider Active Dr. Wyatt Wyatt MD Other Provider Active Dr. Loy Matthew , Attending Provider, Other Provide r Active Dr. Lori Willson MD Other Provider Active Dr. Federico Al MD Other Provider Active Brigitte Chang CLINICAL LAB CLERK, CLINICAL LAB CLERK-C Other Provider Active Dr. Dewayne Cleveland MD Other Provider Active Dr. Juan Dupree MD Other Provider Active Team Status: Active Member Role Status Dates Patsy Stafford NP-C Primary Care Provider Active Dr. Raheel Yun , DO Emergency Provider Active Dr. Prince Ortega , DO Admit Provider, Other Provid er Active Karime Cota Other Provider Active Dr. Nina Wilson MD Other Provider Active Dr. Eunice Sharma MD Other Provider Active Dr. Cj Rain MD Other Provider Active Dr. Cruz Reynolds MD Other Provider Active Dr. Braeden Nino MD Other Provider Active Dr. Rahul Curtis MD Other Provider Active Dr. Raheel Bradley MD Other Provider Active Dr. Jazmine Smith MD Other Provider Active Dr. Bakari Tan MD Other Provider Active Dr. Montez Lara MD Other Provider Active Dr. Kal Lopez MD Other Provider Active Dr. Nicolette Bullock MD Other Provider Active Dr. Alexy John MD Other Provider Active Dr. Rufus Arreola MD Other Provider Active Dr. Rene Solo MD Other Provider Active Dr. Jovany Castro MD Other Provider Active Eduardo Bermudez CLINICAL LAB CLERK, CLINICAL LAB CLERK-C Other Provider Active Karime Roblero CLINICAL LAB CLERK, CLINICAL LAB CLERK-C Other Provider Active Lisa Irizarry PA, PA Other Provider Active Dr. Dewayne Cleveland MD Attending Provider, Other Provi brenna Active Dr. Juan Dupree MD Other Provider Active Team Status: Inactive Member Role Status Dates Patsy Stafford , CLINICAL LAB CLERK-C Primary Care Provider Active Dr. Keith Howe MD Attending Provider, Emergency Pro vider Active Team Status: Inactive Member Role Status Dates Patsy Stafford , CLINICAL LAB CLERK-C Primary Care Provider Active Dr. Raheel Yun , DO Emergency Provider Active Dr. Prince Ortega , DO Admit Provider, Other Provid er Active Karime Cota Other Provider Active Dr. Nina Wilson MD Other Provider Active Dr. Eunice Sharma MD Other Provider Active Dr. Cj Rain MD Other Provider Active Dr. Cruz Reynolds MD Other Provider Active Dr. Braeden Nino MD Other Provider Active Dr. Rahul Curtis MD Other Provider Active Dr. Raheel Bradley MD Other Provider Active Dr. Jazmine Smith MD Other Provider Active Dr. Bakari Tan MD Other Provider Active Dr. Montez Lara MD Other Provider Active Dr. Kal Lopez MD Other Provider Active Dr. Nicolette Bullock MD Other Provider Active Dr. Alexy John MD Other Provider Active Dr. Rufus Arreola MD Other Provider Active Dr. Rene Solo MD Other Provider Active Dr. Jovany Castro MD Other Provider Active Eduardo Bermudez CLINICAL LAB CLERK, CLINICAL LAB CLERK-C Other Provider Active Karime Roblero CLINICAL LAB CLERK, CLINICAL LAB CLERK-C Other Provider Active Lisa Irizarry PA, PA Other Provider Active Dr. Dewayne Cleveland MD Attending Provider Active Dr. Juan Dupree MD Other Provider Active Team Status: Active Member Role Status Dates Patsy Harry , CLINICAL LAB CLERK-C Primary Care Provider Active Dr. Raheel Yun , DO Emergency Provider Active Dr. Prince Ortega , DO Admit Provider, Other Provid er Active Dr. Juan Dupree MD Other Provider Active Karime Cota Other Provider Active Dr. Nina Wilson MD Other Provider Active Dr. Eunice Sharma MD Other Provider Active Dr. Cj Rain MD Other Provider Active Dr. Cruz Reynolds MD Other Provider Active Dr. Braeden Nino MD Other Provider Active Dr. Rahul Curtis MD Other Provider Active Dr. Raheel Bradley MD Other Provider Active Dr. Jazmine Smith MD Other Provider Active Dr. Bakari Tan MD Other Provider Active Dr. Montez Lara MD Other Provider Active Dr. Kal Lopez MD Other Provider Active Dr. Nicolette Bullock MD Other Provider Active Dr. Alexy John MD Other Provider Active Dr. Rufus Arreola MD Other Provider Active Dr. Rene Solo MD Other Provider Active Dr. Jovany Castro MD Other Provider Active Eduardo Bermudez CLINICAL LAB CLERK, CLINICAL LAB CLERK-C Other Provider Active Karime Roblero CLINICAL LAB CLERK, CLINICAL LAB CLERK-C Other Provider Active Lisa Irizarry PA, PA Other Provider Active Dr. Wyatt Wyatt MD Attending Provider, Other Provid er Active Dr. Loy Matthew , Other Provider Active Dr. Lori Willson MD Other Provider Active Dr. Federico Al MD Other Provider Active Brigitte Chang CLINICAL LAB CLERK, CLINICAL LAB CLERK-C Other Provider Active Dr. Dewayne Cleveland MD Referring Provider Active Team Status: Inactive Member Role Status Dates Patsy Stafford , CLINICAL LAB CLERK-C Primary Care Provider, Referring P rovider Active Karime Roblero CLINICAL LAB CLERK, CLINICAL LAB CLERK-C Attending Provider Active Team Status: Active Member Role Status Dates Patsy Stafford , CLINICAL LAB CLERK-C Primary Care Provider Active Dr. Raheel Sandoval MD Attending Provider Active Dr. Prince Ortega , Referring Provider Active Team Status: Active Member Role Status Dates Patsy Stafford , CLINICAL LAB CLERK-C Primary Care Provider Active Dr. Raheel Yun , DO Emergency Provider Active Dr. Prince Ortega , DO Admit Provider, Other Provid er Active Dr. Juan Dupree MD Other Provider Active Karime Cota Other Provider Active Dr. Nina Wilson MD Other Provider Active Dr. Eunice Sharma MD Other Provider Active Dr. Cj Rain MD Other Provider Active Dr. Cruz Reynolds MD Other Provider Active Dr. Braeden Nino MD Other Provider Active Dr. Rahul Curtis MD Other Provider Active Dr. Raheel Bradley MD Other Provider Active Dr. Jazmine Smith MD Other Provider Active Dr. Bakari Tan MD Other Provider Active Dr. Montez Lara MD Other Provider Active Dr. Kal Lopez MD Other Provider Active Dr. Nicolette Bullock MD Other Provider Active Dr. Alexy John MD Other Provider Active Dr. Rufus Arreola MD Other Provider Active Dr. Rene Solo MD Other Provider Active Dr. Jovany Castro MD Other Provider Active Eduardo Bermudez CLINICAL LAB CLERK, CLINICAL LAB CLERK-C Other Provider Active Karime Roblero CLINICAL LAB CLERK, CLINICAL LAB CLERK-C Other Provider Active Lisa Irizarry PA, PA Other Provider Active Dr. Wyatt Wyatt MD Other Provider Active Dr. Loy Matthew , Attending Provider, Other Provide r Active Dr. Lori Willson MD Other Provider Active Dr. Federico Al MD Other Provider Active Brigitte Chang CLINICAL LAB CLERK, CLINICAL LAB CLERK-C Other Provider Active Dr. Dewayne Cleveland MD Referring Provider Active Team Status: Active Member Role Status Dates Patsy Stafford , CLINICAL LAB CLERK-C Primary Care Provider Active Dr. Raheel Yun , Emergency Provider Active Dr. Prince Ortega , Admit Provider, Other Provid er Active Karime Cota Other Provider Active Dr. Nina Wilson MD Other Provider Active Dr. Eunice Sharma MD Other Provider Active Dr. Cj Rain MD Other Provider Active Dr. Cruz Reynolds MD Other Provider Active Dr. Braeden Nino MD Other Provider Active Dr. Rahul Curtis MD Other Provider Active Dr. Raheel Bradley MD Other Provider Active Dr. Jazmine Smith MD Other Provider Active Dr. Bakari Tan MD Other Provider Active Dr. Montez Lara MD Other Provider Active Dr. Kal Lopez MD Other Provider Active Dr. Nicolette Bullock MD Other Provider Active Dr. Alexy John MD Other Provider Active Dr. Rufus Arreola MD Other Provider Active Dr. Rene Solo MD Other Provider Active Dr. Jovany Castro MD Other Provider Active Eduardo Bermudez CLINICAL LAB CLERK, CLINICAL LAB CLERK-C Other Provider Active Karime Roblero CLINICAL LAB CLERK, CLINICAL LAB CLERK-C Other Provider Active Lisa GARCÍA, PA Other Provider Active Dr. Wyatt Wyatt MD Other Provider Active Dr. Loy Matthew DO Attending Provider, Other Provide r Active Dr. Lori Willson MD Other Provider Active Dr. Federico Al MD Other Provider Active Brigitte Chang CLINICAL LAB CLERK, CLINICAL LAB CLERK-C Other Provider Active Dr. Dewayne Cleveland MD Referring Provider, Other Provi brenna Active Dr. Juan Dupree MD Other Provider Active Team Status: Active Member Role Status Dates Patsy Stafford , CLINICAL LAB CLERK-C Primary Care Provider Active Karime Roblero CLINICAL LAB CLERK, CLINICAL LAB CLERK-C Referring Provider, Other Provi brenna Active Dr. Eunice Sharma MD Attending Provider Active Team Status: Active Member Role Status Dates Patsy Stafford , CLINICAL LAB CLERK-C Primary Care Provider Active Dr. Eunice Sharma MD Attending Provider Active Team Status: Active Member Role Status Dates Patsy Stafford , CLINICAL LAB CLERK-C Primary Care Provider Active Karime Roblero CLINICAL LAB CLERK, CLINICAL LAB CLERK-C Attending Provider Active Team Status: Active Member Role Status Dates Patsy Stafford , CLINICAL LAB CLERK-C Primary Care Provider Active Karime Cota Attending Provider Active Team Status: Inactive Member Role Status Dates Patsy Stafford , CLINICAL LAB CLERK-C Primary Care Provider Active Dr. Eunice Sharma MD Admit Provider, At tending Provider, Referring Provider Active Team Status: Active Member Role Status Nicci Stafford , CLINICAL LAB CLERK-C Primary Care Provider Active Dr. Eunice Sharma MD Attending Provider, Referring Pr ovider Active Team Status: Active Member Role Status Dates Patsy Stafford , CLINICAL LAB CLERK-C Primary Care Provider, Referring P rovider Active Dr. Eunice Sharma MD Attending Provider Active Team Status: Active Member Role Status Dates Patsy Stafford , CLINICAL LAB CLERK-C Primary Care Provider, Attending P rovider Active Team Status: Inactive Member Role Status Dates Patsy Stafford , CLINICAL LAB CLERK-C Primary Care Provider, Attending P rovider Active Jacquard Card Cutter Relationship Specialty Start Date End Date Patsy Stafford NP [facility] [place] [address] PCP - General Family Medicine 07/27/23 Jeevan Boss MD [address] [address] Hematology/Oncology 01/26/23 Jacquard Card Cutter Relationship Specialty Start Date End Date Patsy Stafford NP [address] [place], [place] [id number] PCP - General Family Medicine 07/27/23 Jeevan Boss MD [address] [place], [place] [id number] Hematology/Oncology 01/26/23 Jacquard Card Cutter Relationship Specialty Start Date End Date Harvey Chow MD PCP - General Family Medicine 06/07/14 07/26/23 Jacquard Card Cutter Relationship Specialty Start Date End Date Harvey Chow [address] [facility] [place] [phone] PCP - General 08/01/20 eJssica Tellez MD [address] [place] [address], [address] [place], [place] [id number] Consulting Physician Vascular Surgery 03/15/22 Jacquard Card Cutter Relationship Specialty Start Date End Date Harvey Chow [address] [place] [address] PCP - General 08/01/20 Jessica Tellez MD [address] [place] [address], [address] [place], [place] [id number] Consulting Physician Vascular Surgery 03/15/22 Simi Castillo PA-C [address] [facility] [address] [place] [address] Mechanical Engineer 04/20/22 Jacquard Card Cutter Relationship Specialty Start Date End Date ClaudineHarvey wilson [address] [facility] [place] [phone] PCP - General 08/01/20 Jessica Tellez MD [address] [place] [address], [address] [place], [place] [id number] Consulting Physician Vascular Surgery 03/15/22 Simi Castillo PA-C [address] [facility] [address] [place] [address] Mechanical Engineer 04/20/22 Jacquard Card Cutter Relationship Specialty Start Date End Date Harvey Chow [address] [facility] [place] [phone] PCP - General 08/01/20 Jessica Tellez MD [address] [place] [address], [address] [place] [address] Consulting Physician Vascular Surgery 03/15/22 Simi Castillo PA-C [address] Mechanical Engineer 04/20/22 Jacquard Card Cutter Relationship Specialty Start Date End Date Patsy Stafford NP [address] [facility] [place], [place] [id number] PCP - General Family Medicine 07/27/23 Jeevan Boss MD [address] [facility], [place] [id number] Hematology/Oncology 01/26/23 Jacquard Card Cutter Relationship Specialty Start Date End Date Patsy Stafford NP [address] [facility] [address] [place], [place] [id number] PCP - General Family Medicine 07/27/23 Jeevan Boss MD [address] [place] [address] Hematology/Oncology 01/26/23 FOR RECORDS PERTAINING TO PATIENTS WHO ARE [...] BE BASED ON THE PRIMARY CLINICAL RECORDS. [employer] provides no warranty or guarantee of the accuracy or completeness of information in this document.
[2024-09-30 11:48] VITALS: BP 116/70; PULSE 71; RESP 14; TEMP 36.7; O2SAT 100
== END 2024-09-30 11:49 | disposition home or self-care (01) ==
PROVIDERS: Emergency Provider Emergency Medicine; PCP Nurse Practitioner Family; Visit Provider Emergency Medicine
DX: S93.401A Sprain of unspecified ligament of right ankle, initial encounter (principal); J44.9 Chronic obstructive pulmonary disease, unspecified; I25.10 Atherosclerotic heart disease of native coronary artery without angina pectoris; E78.5 Hyperlipidemia, unspecified; I10 Essential (primary) hypertension; W18.39XA Other fall on same level, initial encounter; I25.2 Old myocardial infarction; Z85.118 Personal history of other malignant neoplasm of bronchus and lung; F41.9 Anxiety disorder, unspecified; Z79.899 Other long term (current) drug therapy; Z79.82 Long term (current) use of aspirin; Z98.51 Tubal ligation status; Z90.49 Acquired absence of other specified parts of digestive tract; Z95.5 Presence of coronary angioplasty implant and graft; F17.210 Nicotine dependence, cigarettes, uncomplicated
CPT/HCPCS: 73610; 99283

== ENCOUNTER → 2025-02-01 | Outpatient (CLI) | payer MEDICARE, SELFPAY ==
[2025-02-01 18:05] LABS: Hematocrit 40.4 % (37-47); Hemoglobin 12.8 g/dL (12.0-15.0); Immature Granulocytes Count 0.030 X10^3/uL (0.0-0.0); Mean Corp Hgb Conc 31.7 g/dL (32-36); Mean Corpuscular Volume 86.9 fL (81-99); Mean Platelet Vol. 10.1 fl (6.2-12.0); NRBC Flagged by Analyzer 0 % (0-5); Platelet Count 286 K/mm3 (150-450); RBC Distribution Width CV 15.9 % (11.6-14.6); RBC Distribution Width SD 50.2 fl (35.1-43.9); Red Blood Count 4.65 M/mm3 (4.2-5.4); White Blood Count 9.6 K/mm3 (4.4-11.0)
[2025-02-01 18:29] LABS: AST(SGOT) 19 U/L (<=31); Alanine Aminotransfer ALT/SGPT 12 U/L (<=34); Albumin, Serum 4.0 g/dL (3.4-4.8); Alkaline Phosphatase 59 U/L (35-104); Anion Gap 13 (5-15); BUN 14 mg/dL (4-19); BUN/Creat Ratio 17.7 RATIO (10-20); Calcium,Total 9.4 mg/dL (7.6-11.0); Carbon Dioxide 23.6 mmol/L (21.0-32.0); Chloride 102 mmol/L (98-108); Cholesterol 222 mg/dL (<=200); Globulin 3.3 g/dL (2.2-4.2); Glucose 81 mg/dL (70-99); Low Density Lipoprotein Calc. 125 mg/dL; Potassium 3.9 mmol/L (3.3-5.1); Triglycerides 181 mg/dL; Very Low Density Lipoprotein 36 mg/dL (5-40); cholesterol:hdl ratio screen 3.39
== END | disposition home or self-care (01) ==
LOC: BFHLAB 13:56
PROVIDERS: PCP Nurse Practitioner Family; Visit Provider Nurse Practitioner Family
DX: R73.9 Hyperglycemia, unspecified (principal); I10 Essential (primary) hypertension; E78.5 Hyperlipidemia, unspecified; N39.0 Urinary tract infection, site not specified
CPT/HCPCS: 36415; 80053; 80061; 83036; 85025; 87077; 87086; 87088; 87186